=== PATIENT | male | born 1960 | race Caucasian/White ===

== ENCOUNTER 2023-04-19 15:34 | Emergency (ER) | payer OTHER, SELFPAY ==
--- NOTE | 2023-04-19 15:53 | ED.URI ---
HPI - URI/Sore Throat General Chief Complaint: Upper Respiratory Infection Stated Complaint: sinus issue Time Seen by Provider: 04/19/23 16:08 Source: patient Mode of arrival: ambulatory Limitations: no limitations History of Present Illness HPI Narrative: 62-year-old male presents complaint of sinus congestion, postnasal drainage for the past 7 days. Reports worsening congestion, left-sided sinus tenderness and pressure for the past 3 days. Afebrile. Taking an pnyh-xqr-kdrqzty sinus medication with no relief of symptoms. Afebrile. Denies sore throat. No cough. All systems reviewed and negative except as noted above. Related Data Home Medications Medication Instructions Recorded Confirmed amlodipine 10 mg tablet 10 mg PO DAILY 04/19/23 04/19/23 aspirin 81 mg chewable tablet 81 mg PO DAILY 04/19/23 04/19/23 metformin 500 mg tablet 1,000 mg PO BID 04/19/23 04/19/23 Allergies Allergy/AdvReac Type Severity Reaction Status Date / Time mold Allergy Intermediate SINUS Verified 04/19/23 15:57 PRESSURE, HEADACHES codeine Allergy Unknown Unknown Verified 04/19/23 15:57 Cat Dander Allergy Mild SNEEZE Uncoded 04/19/23 15:57 [place] Allergy Mild SNEEZE Uncoded 04/19/23 15:57 Review of Systems Review of Systems: CONSTITUTIONAL: Denies fever, chills, or sweats. EYES: Denies visual changes, redness, or discharge. ENT: Reports rhinorrhea, congestion, sinus pressure. Denies sore throat, or otalgia. CARDIOVASCULAR: Denies chest pain, palpitations, or edema. RESPIRATORY: Denies cough or dyspnea. GASTROINTESTINAL: Denies abdominal pain, nausea, vomiting, or diarrhea. GENITOURINARY: Denies dysuria or hematuria. SKIN: Denies rash or itching. MUSCULOSKELETAL: Denies back pain, joint pain, or myalgia. NEUROLOGIC: reports sinus headache. Denies numbness, or weakness. PSYCHIATRIC: Denies anxiety or depression. All other systems reviewed are negative, except as documented in HPI. [facility] Family History Family History (Updated 12/11/13 @ 07:13 by DOCTOR UNKNOWN) Mother Hypertension Cerebrovascular accident Patient's mother is Social History Social History Smoking status: Never smoker Second hand tobacco smoke exposure: No Alcohol intake: never Comments At time of signature, agree with nursing past medical, surgical, social and family history. There is no relevant family history pertinent to the presenting complaint. Exam Narrative: GENERAL: This is a well-nourished, well-developed patient, in no apparent distress. HEAD: normocephalic, atraumatic. EYES: PERRL. Sclera clear/white. Vision is grossly intact. EARS: External ears normal, auditory canals clear and without drainage, TMs normal without perforation. Hearing grossly intact. NOSE: External nose normal with mild congestion, erythema to bilateral nares without significant swelling. Left maxillary sinus tenderness on palpation. THROAT: Mucous membranes moist, posterior pharynx clear. NECK: Neck supple, non-tender without lymphadenopathy, masses or thyromegaly. CARDIOVASCULAR: Regular rate and rhythm without murmurs, gallops, or rubs. RESPIRATORY: Clear to auscultation. Breath sounds equal bilaterally. No wheezes, rales, or rhonchi. SKIN: warm, Dry, intact with no suspicious lesions or rash, good texture and turgor. NEURO: awake, alert, and oriented to person, place and time. There were no obvious focal neurologic abnormalities. EXTREMITIES: No joint tenderness, effusion, or edema noted. Course Course Level of Care: Express Care Visit Vital Signs Vital signs: Vital Signs Temperature 37.4 C 04/19/23 15:58 Pulse Rate 126 H 04/19/23 15:58 Respiratory Rate 16 04/19/23 15:58 Blood Pressure 155/89 H 04/19/23 15:58 Pulse Oximetry 97 04/19/23 15:58 Oxygen Delivery Room Air 04/19/23 15:58 Temperature 37.4 C 04/19/23 15:58 Pulse Rate 126 H 04/19/23 15:58 Respiratory Rate 16
[2023-04-19 15:58] VITALS: BP 155/89; PULSE 126; RESP 16; TEMP 37.4; O2SAT 97
== END 2023-04-19 16:44 | disposition home or self-care (01) ==
PROVIDERS: Emergency Provider Nurse Practitioner Family; PCP Family Medicine
DX: J01.90 Acute sinusitis, unspecified (principal); I10 Essential (primary) hypertension; E11.9 Type 2 diabetes mellitus without complications; Z85.818 Personal history of malignant neoplasm of other sites of lip, oral cavity, and pharynx; Z92.21 Personal history of antineoplastic chemotherapy; Z92.3 Personal history of irradiation
CPT/HCPCS: 99213; G0463

== ENCOUNTER 2024-04-21 10:52 | Emergency (ER) | payer OTHER, SELFPAY ==
[2024-04-21] VITALS (8 sets, daily range): BP systolic 130–195; BP diastolic 75–101; PULSE 109–126; RESP 16–20; TEMP 36.6; O2SAT 95–99
--- NOTE | ~2024-04-21 | CT_ITS ---
Non-contrast Head CT History: CVA Technique: Axial non-contrast imaging of the brain was performed. Dose reduction technique was used on this scan by utilizing automated exposure control and iterative reconstruction technique. The dose -length product (DLP) was 681.00 mGy-cm. Findings: There is no evidence of intracranial hemorrhage, mass lesion, or acute infarct. Brain par enchyma appears normal. The ventricles and subarachnoid spaces are normal in size. The calvarium ap pears normal. The visualized paranasal sinuses and mastoid air cells are clear. Impression: No significant abnormality seen. Case discussed with Dr. Dumont at 11:10 AM on 04/21/2024. Reviewed, dictated and finalized at [facility]. RMATION ASSISTANT Impression: No significant abnormality seen. Case discussed with Dr. Dumont at 11:10 AM on 04/21/2024.
--- NOTE | ~2024-04-21 | CT_ITS ---
EXAMINATION: CTA brain carotid DATE: 04/21/2024 11:12 INDICATION: Right facial weakness. Slurred speech. TECHNIQUE: Computed tomographic angiography (CTA) of the head was performed with 100 mL Omnipaque-350 intravenous contrast. CTA of the neck was performed with intravenous contrast. Automated exposure co ntrol and iterative reconstruction technique were employed. The dose-length product was 975.46 mGy-cm . Maximum intensity projection and volume rendered 3D-reconstructions were created by the [facility] on a separate workstation. COMPARISON: Head CT 04/21/2024 FINDINGS: HEAD CTA: There is hypodensity in the posterior aspects of the occipital lobes at least predominantly involving white matter. There is no intracranial hemorrhage or abnormal mass lesion. The ventricles are normal in size. There is mild mucosal thickening in the paranasal sinuses. The orbits are normal. The mastoid air cells are normal. Left vertebral artery is dominant. There is moderate stenosis of d istal left vertebral artery. There is no significant stenosis of basilar artery or the posterior cere bral arteries. There is moderate stenosis of the intracranial internal carotid arteries. There is no significant stenosis of the anterior or middle cerebral arteries. Anterior communicating artery is no rmal. Posterior commuting arteries are not identified. There is no aneurysm. NECK CTA: There are no pathologically enlarged lymph nodes. There are surgical clips in the neck. The re is severe stenosis of proximal left vertebral artery. There is severe stenosis of proximal left ex ternal carotid artery. There is plaque in the proximal internal carotid arteries. There is 20% stenos is of the proximal right internal carotid artery relative to normal distal artery lumen diameter (JON CET criteria). There is 56% stenosis of the proximal left internal carotid artery relative to normal distal artery lumen diameter. IMPRESSION: 1. Low attenuation in the occipital lobes posteriorly predominantly involving white matter, which may be posterior reversible encephalopathy syndrome (PRES) or acute/subacute infarcts. 2. Severe stenosis of proximal left vertebral artery. Moderate stenosis of distal left vertebral chase ry. 3. Moderate stenosis of the intracranial internal carotid arteries. 4. 20% stenosis of the proximal right internal carotid artery relative to normal distal artery lumen diameter (NASCET criteria). 5. 56% stenosis of the proximal left internal carotid artery relative to normal distal artery lumen d iameter. Reviewed, dictated and finalized at [facility] IMPRESSION: 1. Low attenuation in the occipital lobes posteriorly predominantly involving w leah matter, which may be posterior reversible encephalopathy syndrome (PRES) o r acute/subacute infarcts. 2. Severe stenosis of proximal left vertebral artery. Moderate stenosis of dist al left vertebral artery. 3. Moderate stenosis of the intracranial internal carotid arteries. 4. 20% stenosis of the proximal right internal carotid artery relative to wilmer l distal artery lumen diameter (NASCET criteria). 5. 56% stenosis of the proximal left internal carotid artery relative to normal distal artery lumen diameter.
--- NOTE | ~2024-04-21 | CT_ITS ---
CTA chest abdomen pelvis Ordering provider: Beryl Dumont MD History: . hypertensive, neuro def; consider dissection . Comparison: None. Technique: CT angiogram chest, abdomen and pelvis was performed following timed intravenous injection of contrast. Thin slice axial images and reformatted coronal images were obtained. Three dimensional reformatted images of the chest were also obtained using a [employer] workstation. Radiation reduction t echnique utilized. The dose-length product was 762.25 mGy-cm. 100 mL Omnipaque 350 was given IV. FINDINGS: CHEST: --THORACIC AORTA: Mild atheromatous disease. No aneurysm, dissection or mediastinal hematoma. --GREAT VESSELS: Normal as visualized. --PULMONARY ARTERIES: No pulmonary embolus. --VISUALIZED THORACIC INLET: Normal. --MEDIASTINUM: Coronary arteries: Mild atheromatous disease. Heart/other: The heart is not enlarged. Trace of pericardial effusion seen anteriorly. Lymph nodes: No mediastinal or hilar adenopathy. --LUNGS: No pulmonary nodules or masses. No infiltrates or effusions. No pneumothorax. Dependent atelectatic c hanges. A --MUSCULOSKELETAL: Superficial soft tissues: The superficial soft tissues are normal. Bones: Age appropriate degenerative changes of the spine. ABDOMEN/PELVIS: --MUSCULOSKELETAL: Bones: Age appropriate degenerative changes of the spine. Superficial soft tissues: The superficial soft tissues are normal. --UPPER ABDOMINAL ORGANS: Liver: Fat infiltration. Gallbladder: Hyperdense material which may indicate sludge. Ultrasound evaluation advised. Contrast c annot be excluded. Spleen: Normal. Stomach/duodenum: Normal. Pancreas: Normal. Adrenals: Normal. Kidneys: Hypodensity in the right kidney midpole with peripheral enhancement measuring 2 cm. Mass can not be excluded. Follow-up advised. Tiny cysts in the right kidney lower pole. Cyst is seen in the le ft kidney upper pole measuring 1.4 cm. Tiny cyst in the left kidney mid and lower pole. --PELVIC ORGANS: Contrast is seen in the urinary bladder. The bladder is normal. No bladder stones. --BOWEL AND MESENTERY: Colon: No evidence of diverticulitis. Fecal material is loaded in the colon. Normal appendix. Small Bowel: Normal. No obstruction. Peritoneum/mesentery: No free air or free fluid. No mesenteric lymphadenopathy. --RETROPERITONEUM: No retroperitoneal lymphadenopathy. --ARTERIES: ABDOMINAL AORTA: Mild atheromatous disease. No aneurysm or dissection. RENAL ARTERIES: Atherosclerotic changes in the left artery CELIAC AXIS: Atherosclerotic changes of the origin. Slight narrowing. SMA: Atherosclerotic changes. Mild narrowing. SANDIE: Normal. ILIAC AND VISUALIZED FEMORAL ARTERIES: Atherosclerotic changes. MESENTERIC ARTERIES: Normal. IMPRESSION: CHEST: 1. No aortic aneurysm or dissection seen. 2. No acute cardiopulmonary pathology. ABDOMEN/PELVIS: 1. Hyperdense material in the gallbladder which may indicate sludge. Ultrasound evaluation advised. 2. Fat infiltration of the liver. 3. Hypodensity in the right kidney midpole which may be a mass. Follow-up advised. 4. Constipation. 5. Atherosclerotic changes of the celiac, superior mesenteric and renal arteries. Reviewed, dictated and finalized at location [facility] IMPRESSION: CHEST: 1. No aortic aneurysm or dissection seen. 2. No acute cardiopulmonary pathology. ABDOMEN/PELVIS: 1. Hyperdense material in the gallbladder which may indicate sludge. Ultrasoun d evaluation advised. 2. Fat infiltration of the liver. 3. Hypodensity in the right kidney midpole which may be a mass. Follow-up advi sed. 4. Constipation. 5. Atherosclerotic changes of the celiac, superior mesenteric and renal arteri es.
--- NOTE | ~2024-04-21 | XR_ITS ---
EXAMINATION: XR chest 1V portable DATE: 04/21/2024 11:51 INDICATION: Right facial weakness. Slurred speech. TECHNIQUE: A single frontal view of the chest was obtained. COMPARISON: Chest 2 views 05/21/2005 FINDINGS: There is no pneumonia, pleural effusion, or pneumothorax. The heart size is normal. There a re surgical clips in the neck. IMPRESSION: 1. No acute cardiopulmonary disease. Reviewed, dictated and finalized at location [facility]. [facility]
--- NOTE | 2024-04-21 10:53 | ECG_ITS ---
Test Date: 2024-04-21 11:20:22 Measurements Intervals [place] Rate: 108 P: 52 ND: 150 QRS: -4 QRSD: 86 T: 10 QT: 324 QTc: 435 Interpretive Statements SINUS TACHYCARDIA ABNORMAL RHYTHM ECG No previous ECG available for comparison Electronically Signed On 04-23-2024 17:00:18 [employer]AV[employer]ESS OPERATOR by Arnulfo Stevens M.D.
[2024-04-21 11:06] LABS: Estimated Glomerular Filt Rate 51
--- NOTE | 2024-04-21 11:06 | ED_ITS ---
HPI - Neuro Symptoms/Deficit General Chief Complaint: Suspected CVA Stated Complaint: cva Time Seen by Provider: 04/21/24 11:01 Source: patient, family and EMS Mode of arrival: EMS Limitations: no limitations History of Present Illness HPI Narrative: Patient presents as a code stroke activation with concern that acutely at 10:00 a.m. he was having blurred vision in his right eye. There was also concern for right facial droop and people that were around him were concern for slurred speech. 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 Patient reports being nauseated. For EMS his blood pressure was 200/110 with a mean arterial pressure greater than 125. They did not appreciate any slurred speech. Patient reports double vision. Related Data Home Medications ?Medication ?Instructions ?Recorded ?Confirmed ?Last Taken ?Type amlodipine 10 mg tablet 10 mg PO DAILY 04/19/23 04/19/23 Unknown History aspirin 81 mg chewable tablet 81 mg PO DAILY 04/19/23 04/19/23 Unknown History metformin 500 mg tablet 1,000 mg PO BID 04/19/23 04/19/23 Unknown History Allergies Allergy/AdvReac Type Severity Reaction Status Date / Time mold Allergy Intermediate SINUS Verified 04/21/24 11:36 PRESSURE, HEADACHES codeine Allergy Unknown Unknown Verified 04/21/24 11:36 Cat Dander Allergy Mild SNEEZE Uncoded 04/21/24 11:36 [place] Allergy Mild SNEEZE Uncoded 04/21/24 11:36 PMFSH Past Medical History 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 HEAD: Normocephalic, atraumatic. Minor loss of the right nasal labial fold EYES: Non injected, non icteric. Horizontal extraocular movements intact. No deficits on visual vargas. However, patient is having difficulty with color perception /color saturation. States the blue scrubs I am wearing are yellow and can tell that the black stethoscope I have is dark but guesses brown. ENT: Nares clear, no rhinorrhea or epistaxis. NECK: Supple. CHEST: Speaking in full sentences. No respiratory distress. HEART: Regular rate and rhythm. . ABDOMEN: Soft, nondistended. EXTREMITIES: Normal range of motion. No lower extremity edema. SKIN: Warm, dry, no rash. NEURO: No focal deficits. Alert and oriented x3. Right xhrnxm-evca-lhksok ataxia; no ataxia on left. No motor drift x4 extremities. Sensation intact throughout. Patient speaks clearly without aphasia or dysarthria. Answers questions, follows commands. PSYCH: Normal mood and affect. Course Vital Signs Vital signs: Vital Signs Temperature 98 F 04/21/24 10:50 Pulse Rate 109 H 04/21/24 10:50 Respiratory Rate 18 04/21/24 10:50 Blood Pressure 195/101 H 04/21/24 10:50 Pulse Oximetry 95 04/21/24 10:50 Oxygen Delivery Room Air 04/21/24 10:50 Temperature 98 F 04/21/24 10:50 Pulse Rate 122 H 04/21/24 15:10 Respiratory Rate 17 04/21/24 15:10 Blood Pressure 137/91 H 04/21/24 15:10 Pulse Oximetry 97 04/21/24 15:10 Oxygen Delivery Room Air 04/21/24 11:30 MDM - Neuro Symptoms/Deficit MDM Narrative Medical decision making narrative: This is a 63 year old male who presents to the emergency department with concern for possible stroke. Last known well is 10:00. The patient is protecting their airway which is patent. An IV is established by nursing staff blood work sent to the lab for evaluation. An EKG will be performed. Accu-Chek was approximately 200. NIHSS was evaluated per below. The patient was transported immediately to CT scan per stroke protocol for evaluation of acute intracranial bleed. In the emergency department he is afebrile with vital signs notable for her tachycardia as well as hypertension, 195/101. NIHSS Level Of consciousness: 0 Month and age: 0 Follows commands: 0 Gaze palsy: 0 Visual vargas: 0 Facial palsy: 1 (right) Left arm motor drift: 0 Right arm motor drift:0 Left leg motor drift:0 Right leg motor drift:0 Limb ataxia: 1 (right) Sensation: 0 Aphasia: 0 Dysarthria: 0 Extinction: 0 Total: 2. I do have concerns for posterior stroke given patient's diplopia, dizziness, and ataxia. CT non contrast per stroke protocol is negative per discussion with radiologist 11:09. CTA as below. Patient has comorbidities that complexity management. Namely, history of malignancy. Patient reassessed at approximately 12:15 p.m.. He remains nauseous. Will give a dose of Compazine. His visual changes persist and on bedside testing it does appear to affect both eyes with color blindness and color desaturation. This does point more towards posterior reversible encephalopathy syndrome over stroke but consult remains out to neurologist. Dr Montes recommends consulting stroke center. Shared decision making with patent regarding the concerns. He has previously undergone surgery for HPV related head/neck cancer at [facility] so [facility] is their preferred hospital institution. Discussed with stroke fellow Dr. Bui at [facility] who stated as long as he had no TNK contraindications that would still be the recommendation. However, even post lytics, they are currently on time critical and thus cannot accept the patient as they have no neuro ICU beds and he is otherwise not a thrombectomy candidate. tPA/TNK exclusion criteria are reviewed of which patient has none (BP has improved without the labetalol that was ordered). I did discuss with Dr Bella given CT brain imaging shows extensive regions of clear hypoattenuation is considered a contraindication but Dr Bella did say that this would not be considered extensive. Will give TNK. Discussed with Dr Avery cross tie tram loader. Discussed with [facility] stroke team Dr. Slick Ng who does state that this would be a time critical diagnosis for in consideration of ED to ED transfer. Spoke with ED attending Dr. Mendoza who accepts patient; requests disc. Dr Skyler Stone hospitalist at [facility] accepts patient to a neurology bed however no current beds available. Recommends Repeat CT 24 hours unless patient has signs/symptoms/worsening headache concerning for acute intracranial bleed. He is also concerned about his elevated blood sugar and recommends getting a hemoglobin A1c as well as giving him some insulin right now. Will give 1 L IV fluid as well as this. Patient is still pending a bed assignment however. Goal BP post tnk <180/105 or 110mmHg. Labs : Hyperglycemia without anion gap acidosis. Pseudo hyponatremia as the sodium corrects to 139-140mEq/L in the setting of hyperglycemia. Mild leukocytosis. NIHSS still 2 for the same deficits as above. He continues to have issues with color perception and saturation. He states that the green top of a container of wipes appears dark but can not differentiate. Similarly, some yellow pediatric scrubs I grab he states are light but can not tell beyond that. I did discuss our options at present which is an emergency department to emergency department at [facility] versus awaiting bed assignment to [facility] and [facility]. Family concurs with proceding with ED transfer. Ambulance transportation is delayed given the weather/road conditions but helicopters are still active to fly and, given this constitutes a time critical diagnosis, this is discussed with patient and and he is in agreement. This is arranged. HA1c 7.5%. Can not read any letters on vision board at bedside during visual acuity testing. Differential Diagnosis Differential diagnosis: Likely cerebrovascular accident, transient cerebral ischemia and other (Hypertensive emergency, ocular migraine, posterior reversible encephalopathy syndrome (PRES); aortic dissection; ) Lab Data Attestation: I reviewed the patient's lab results. 04/21/24 11:03 04/21/24 11:04 Labs: Lab Results 04/21/24 04/21/24 04/21/24 Range/Units 11:03 11:04 14:27 WBC 11.9 H (4.5-10.0) K/mm3 RBC 4.86 (4.6-6.20) M/mm3 Hgb 15.1 (14.0-18.0) g/dL Hct 43.6 (42.0-52.0) % MCV 89.7 (80-100) fl MCH 31.1 (26-34) pg MCHC 34.6 (32-36) g/dl RDW 12.2 (11.5-14.5) % Plt Count 239 (150-375) k/mm3 MPV 10.5 H (7.4-10.4) fl Immature Gran % (Auto) 1.2 H (0-0.5) % Neut % (Auto) 76.5 H (45.5-73.1) % Lymph % (Auto) 13.3 L (18.3-44.2) % [place] % (Auto) 7.4 (2.6-8.5) % Eos % (Auto) 0.3 (0-4.4) % Baso % (Auto) 1.3 H (0.2-1.2) % Lymph # (Auto) 1.58 (0.9-3.2) K/mm3 [place] # (Auto) 0.9 H (0.1-0.6) K/mm3 Eos # (Auto) 0.0 (0-0.3) K/mm3 Baso # (Auto) 0.2 H (0.0-0.1) K/mm3 Abs Immat Gran (auto) 0.14 H (0.00-0.031) K/mm3 Absolute Neuts (auto) 9.1 H (1.3-6.7) K/mm3 Absolute Nucleated RBC 0.000 (0.0-0.012) K/mm3 Nucleated RBC % 0.0 (0.0-0.2) % PT 12.8 (11.1-14.7) Seconds INR 0.9 APTT 28.1 (22.3-36.8) Seconds Sodium 136 L (137-145) mmol/L Potassium 4.5 (3.4-5.0) mmol/L Chloride 104 (98-107) mmol/L Carbon Dioxide 23 (22-30) mmol/L Anion Gap 9 (4-12) mmol/L BUN 23 H (9-20) mg/dL Creatinine 1.28 1.40 (0.7-1.3) mg/dL Estim Creat Clear Calc Not Reportable Not Reportable Estimated GFR 57 L 51 L (59 - ) Glucose 290 H (65-110) mg/dL POC Capillary Glucose (65-105) mg/dl Hemoglobin A1c 7.5 H (<5.7) % Calcium 9.5 (8.4-10.2) mg/dL Total Bilirubin 0.9 (0.2-1.3) mg/dL AST 21 (17-59) U/L ALT 18 (6-50) U/L Alkaline Phosphatase 74 (38-126) U/L Troponin I < 0.012 (0.000-0.034) ng/mL Total Protein 7.0 (6.3-8.2) g/dL Albumin 4.5 (3.5-5.1) g/dL Urine Color Yellow (Yellow) Urine Appearance Clear (Clear) Urine pH 6.5 (5.0-9.0) Ur Specific [place] 1.042 H (1.001-1.035) Urine Protein 1+ H (Negative) mg/dL Urine Glucose (UA) 3+ H (Negative) mg/dL Urine Ketones 1+ H (Negative) mg/dL Ur Blood (Man) Negative (Negative) Urine Nitrate Negative (Negative) Urine Bilirubin Negative (Negative) Urine Urobilinogen 0.2 (<2.0) mg/dL Leukocyte Esterase Rfl Negative (Negative) ANTONIO/UL Urine RBC 0-2 (0-2) /hpf Urine WBC 0-5 (0-3) /hpf Ur Squamous Epith Cells None seen (Few) /hpf Urine Bacteria None seen /hpf Urine Casts 0-2 Urine Opiates Screen Negative (Negative) Urine Methadone Screen Negative (Negative) Ur Barbiturates Screen Negative (Negative) Ur Phencyclidine Scrn Negative (Negative) Ur Amphetamine Screen Negative (Negative) U Benzodiazepines Scrn Negative (Negative) Urine Cocaine Screen Negative (Negative) U Cannabinoids Screen Negative (Negative) Ethyl Alcohol < 10 (<10) mg/dL 04/21/24 Range/Units 14:36 WBC (4.5-10.0) K/mm3 RBC (4.6-6.20) M/mm3 Hgb (14.0-18.0) g/dL Hct (42.0-52.0) % MCV (80-100) fl MCH (26-34) pg MCHC (32-36) g/dl RDW (11.5-14.5) % Plt Count (150-375) k/mm3 MPV (7.4-10.4) fl Immature Gran % (Auto) (0-0.5) % Neut % (Auto) (45.5-73.1) % Lymph % (Auto) (18.3-44.2) % [place] % (Auto) (2.6-8.5) % Eos % (Auto) (0-4.4) % Baso % (Auto) (0.2-1.2) % Lymph # (Auto) (0.9-3.2) K/mm3 [place] # (Auto) (0.1-0.6) K/mm3 Eos # (Auto) (0-0.3) K/mm3 Baso # (Auto) (0.0-0.1) K/mm3 Abs Immat Gran (auto) (0.00-0.031) K/mm3 Absolute Neuts (auto) (1.3-6.7) K/mm3 Absolute Nucleated RBC (0.0-0.012) K/mm3 Nucleated RBC % (0.0-0.2) % PT (11.1-14.7) Seconds INR APTT (22.3-36.8) Seconds Sodium (137-145) mmol/L Potassium (3.4-5.0) mmol/L Chloride (98-107) mmol/L Carbon Dioxide (22-30) mmol/L Anion Gap (4-12) mmol/L BUN (9-20) mg/dL Creatinine (0.7-1.3) mg/dL Estim Creat Clear Calc Estimated GFR (59 - ) Glucose (65-110) mg/dL POC Capillary Glucose 257 H (65-105) mg/dl Hemoglobin A1c (<5.7) % Calcium (8.4-10.2) mg/dL Total Bilirubin (0.2-1.3) mg/dL AST (17-59) U/L ALT (6-50) U/L Alkaline Phosphatase (38-126) U/L Troponin I (0.000-0.034) ng/mL Total Protein (6.3-8.2) g/dL Albumin (3.5-5.1) g/dL Urine Color (Yellow) Urine Appearance (Clear) Urine pH (5.0-9.0) Ur Specific [place] (1.001-1.035) Urine Protein (Negative) mg/dL Urine Glucose (UA) (Negative) mg/dL Urine Ketones (Negative) mg/dL Ur Blood (Man) (Negative) Urine Nitrate (Negative) Urine Bilirubin (Negative) Urine Urobilinogen (<2.0) mg/dL Leukocyte Esterase Rfl (Negative) ANTONIO/UL Urine RBC (0-2) /hpf Urine WBC (0-3) /hpf Ur Squamous Epith Cells (Few) /hpf Urine Bacteria /hpf Urine Casts Urine Opiates Screen (Negative) Urine Methadone Screen (Negative) Ur Barbiturates Screen (Negative) Ur Phencyclidine Scrn (Negative) Ur Amphetamine Screen (Negative) U Benzodiazepines Scrn (Negative) Urine Cocaine Screen (Negative) U Cannabinoids Screen (Negative) Ethyl Alcohol (<10) mg/dL Imaging Data Radiologist's impression: Impressions Head CT 04/21/24 11:07 Impression: No significant abnormality seen. Case discussed with Dr. Dumont at 11:10 AM on 04/21/2024. Head/Neck CTA 04/21/24 11:13 IMPRESSION: 1. Low attenuation in the occipital lobes posteriorly predominantly involving white matter, which may be posterior reversible encephalopathy syndrome (PRES) or acute/subacute infarcts. 2. Severe stenosis of proximal left vertebral artery. Moderate stenosis of distal left vertebral artery. 3. Moderate stenosis of the intracranial internal carotid arteries. 4. 20% stenosis of the proximal right internal carotid artery relative to normal distal artery lumen diameter (NASCET criteria). 5. 56% stenosis of the proximal left internal carotid artery relative to normal distal artery lumen diameter. Chest X-Ray 04/21/24 11:52 IMPRESSION: 1. No acute cardiopulmonary disease. Chest/Abdomen/Pelvis CTA 04/21/24 13:51 IMPRESSION: CHEST: 1. No aortic aneurysm or dissection seen. 2. No acute cardiopulmonary pathology. ABDOMEN/PELVIS: 1. Hyperdense material in the gallbladder which may indicate sludge. Ultrasound evaluation advised. 2. Fat infiltration of the liver. 3. Hypodensity in the right kidney midpole which may be a mass. Follow-up advised. 4. Constipation. 5. Atherosclerotic changes of the celiac, superior mesenteric and renal arteries. ECG Data EKG #1: Attestation: I personally reviewed and interpreted this ECG as follows: ECG completion date: 04/21/24 ECG completion time: 11:20 Interpretation: Sinus tachycardia at a rate of 108 beats per minute. [place] interval 150. QRS 86. QT/QTC 324/387. Good R-wave progression across the precordial leads. T-wave inversion in 3 but upright and normal contiguous inferior leads 2 and AVF. No other T-wave inversions. Discharge Plan Discharge Clinical Impression: Hyperglycemia, Pseudohyponatremia, Leukocytosis, Color vision defect, Alteration in vision, Asymmetry, facial, Ataxia Patient Disposition: Acute Care Hospital Condition: Serious Patient Language: Indonesian Prescriptions: No Action metformin 500 mg tablet 1,000 mg PO BID amlodipine 10 mg tablet 10 mg PO DAILY aspirin [Baby Aspirin] 81 mg Tablet,Chewable 81 mg PO DAILY amoxicillin 875 mg tablet 875 mg PO Q12H 7 Days Qty: 14 0RF Follow-up/Referrals: Laura,León Lott MD [Primary Care Provider] -
[2024-04-21 11:13] LABS: Basophils Absolute Auto 0.2 K/mm3 (0.0-0.1); Basophils Percent Auto 1.3 % (0.2-1.2); Eosinophils Percent Auto 0.3 % (0-4.4); Hematocrit 43.6 % (42.0-52.0); Hemoglobin 15.1 g/dL (14.0-18.0); Immature Granulocyte Absolute 0.14 K/mm3 (0.00-0.031); Immature Granulocyte Percent A 1.2 % (0-0.5); Lymphocytes Absolute Auto 1.58 K/mm3 (0.9-3.2); Lymphocytes Percent Auto 13.3 % (18.3-44.2); Mean Corpuscular HGB Conc 34.6 g/dl (32-36); Mean Corpuscular Hemoglobin 31.1 pg (26-34); Mean Corpuscular Volume 89.7 fl (80-100); Mean Platelet Volume 10.5 fl (7.4-10.4); Monocytes Absolute Auto 0.9 K/mm3 (0.1-0.6); Monocytes Percent Auto 7.4 % (2.6-8.5); Neutrophils Absolute Auto 9.1 K/mm3 (1.3-6.7); Neutrophils Percent Auto 76.5 % (45.5-73.1); Platelet Count Result 239 k/mm3 (150-375); Red Blood Count 4.86 M/mm3 (4.6-6.20); Red Cell Distribution Width 12.2 % (11.5-14.5); White Blood Count 11.9 K/mm3 (4.5-10.0)
[2024-04-21 11:18] LABS: Alanine Aminotransferase 18 U/L (6-50); Albumin Level 4.5 g/dL (3.5-5.1); Alkaline Phosphatase 74 U/L (38-126); Anion Gap 9 mmol/L (4-12); Aspartate Amino Transferase 21 U/L (17-59); Bilirubin,Total 0.9 mg/dL (0.2-1.3); Blood Urea Nitrogen 23 mg/dL (9-20); Calcium 9.5 mg/dL (8.4-10.2); Carbon Dioxide 23 mmol/L (22-30); Chloride 104 mmol/L (98-107); Estimated Glomerular Filt Rate 57; Glucose 290 mg/dL (65-110); Potassium 4.5 mmol/L (3.4-5.0); Sodium 136 mmol/L (137-145)
[2024-04-21 11:20] LABS: INR 0.9; Prothrombin Time 12.8 Seconds (11.1-14.7)
[2024-04-21 11:21] LABS: Partial Thromboplastin Time 28.1 Seconds (22.3-36.8)
[2024-04-21 11:29] LABS: Troponin I < 0.012 ng/mL (0.000-0.034)
[2024-04-21] MEDS: PROCHLORPERAZINE EDISYLATE 10 MG/2 ML VIAL IV PUSH (13:01)
[2024-04-21] MEDS: TENECTEPLASE 50 MG/10 ML VIAL 17 MG IV PUSH (13:18)
[2024-04-21 14:05] LABS: Ethanol < 10 mg/dL (<10)
[2024-04-21 14:32] LABS: Hemoglobin A1C 7.5 % (<5.7)
[2024-04-21] MEDS: SODIUM CHLORIDE 0.9% IV 1,000 ML 999 ML IV CONT (14:36)
[2024-04-21] MEDS: INSULIN HUMAN REGULAR (*BKC) 100 UNITS/ML SUB-Q (14:36)
[2024-04-21 14:40] LABS: Glucose Point of Care 257 mg/dl (65-105)
[2024-04-21 14:40] LABS: Add Urine Microscopic? YES; Appearance Urine Clear (Clear); Bacteria Urine None Seen /hpf; Bilirubin Urine Negative (Negative); Blood Urine Negative (Negative); Color Urine Yellow (Yellow); Glucose Urine UA 3+ mg/dL (Negative); Ketones Urine 1+ mg/dL (Negative); Leukocyte Esterase Ur Negative LEU/UL (Negative); Nitrate Urine Negative (Negative); Non Pathogenic Casts 0-2; Protein Urine 1+ mg/dL (Negative); RBC Urine 0-2 /hpf (0-2); Specific Grav Ur 1.042 (1.001-1.035); Squamous Epithelial Cell Urine None Seen /hpf (Few); Urobilinogen Urine 0.2 mg/dL (<2.0); WBC Urine 0-5 /hpf (0-3); pH Urine 6.5 (5.0-9.0)
[2024-04-21 15:03] LABS: Amphetamine Screen Urine Negative (Negative); Barbiturate Screen Urine Negative (Negative); Benzodiazepines Screen Urine Negative (Negative); Cannabinoid Screen Urine Negative (Negative); Cocaine Screen Urine Negative (Negative); Methadone Screen Urine Negative (Negative); Opiate Screen Urine Negative (Negative); Phencyclidine Screen Urine Negative (Negative)
[2024-04-25 09:23] LABS: Glucose Point of Care 290 mg/dl (65-105)
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
--- OUTSIDE RECORDS SUMMARY | 2024-04-27 18:23 | XMS_ITS | Encounter Summary ---
Author Organization [facility] Address [address] [place] [address]. 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 Not on file Not on file documented as of this encounter Plan of Treatment Upcoming Encounters Date Type Department Care Team (Late Contact Info) Description 06/09/2024 4:20 PM AUTO TRANSMISSION MECHANIC Office Visit [facility] Family & Internal Medicine [facility] [id number] [place] [phone] León Sanchez [place] [id number] [place] [address] documented as of this encounter Visit Diagnoses Not on filedocumented in this encounter Additional Health Concerns Assessment Noted Time PHQ-9 Depression Total Score: 0 12/29/19 21 3:46 PM CDT documented as of this encounter Care Teams Ukrainian Folk Arts Instructor Relationship Specialty Start [place] [address] [place] [address] PCP - General FAMILY PRACTICE 02/27/18 documented as of this encounter
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
--- OUTSIDE RECORDS SUMMARY | 2024-04-27 18:23 | XMS_ITS | Encounter Summary ---
Author Organization [facility] Address [address] [place] [address]. 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 Not on file Not on file documented as of this encounter Plan of Treatment Upcoming Encounters Date Type Department Care Team (Late Contact Info) Description 06/09/2024 4:20 PM BELLOWS FILLER Office Visit [facility] Family & Internal Medicine [facility] [id number] [place] [phone] León Sanchez [place] [id number] [place] [address] documented as of this encounter Visit Diagnoses Not on filedocumented in this encounter Additional Health Concerns Assessment Noted Time PHQ-9 Depression Total Score: 0 12/29/19 21 3:46 PM CDT documented as of this encounter Care Teams Publishing Specialist Relationship Specialty Start Date End Date Ló[place] [address] [place] [address] PCP - General FAMILY PRACTICE 02/27/18 documented as of this encounter
--- OUTSIDE RECORDS SUMMARY | 2024-04-27 18:23 | XMS_ITS | Encounter Summary ---
Author Organization [facility] Address [address] [place] [address]. 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 Not on file Not on file documented as of this encounter Plan of Treatment Upcoming Encounters Date Type Department Care Team (Late Contact Info) Description 06/09/2024 4:20 PM FORKLIFT MATERIAL HANDLER Office Visit [facility] Family & Internal Medicine [facility] [address] [place] [phone] León Sanchez [place] [id number] [place] [address] documented as of this encounter Visit Diagnoses Not on filedocumented in this encounter Additional Health Concerns Assessment Noted Time PHQ-9 Depression Total Score: 0 12/29/19 21 3:46 PM CDT documented as of this encounter Care Teams Slice Cutting Machine Operator Helper Relationship Specialty Start [place] [address] [place] [address] PCP - General FAMILY PRACTICE 02/27/18 documented as of this encounter
--- OUTSIDE RECORDS SUMMARY | 2024-04-27 18:23 | XMS_ITS | Encounter Summary ---
Author Organization [facility] Address [address] [place] [address]. 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 Not on file Not on file documented as of this encounter Plan of Treatment Upcoming Encounters Date Type Department Care Team (Late Contact Info) Description 06/09/2024 4:20 PM [employer] ASSISTANT MANAGER Office Visit [facility] Family & Internal Medicine [facility] [address] [place] [phone] León Sanchez [place] [id number] [place] [address] documented as of this encounter Visit Diagnoses Not on filedocumented in this encounter Additional Health Concerns Assessment Noted Time PHQ-9 Depression Total Score: 0 12/29/19 21 3:46 PM CDT documented as of this encounter Care Teams Boat Canvas Maker Installer Relationship Specialty Start [place] [address] [place] [address] PCP - General FAMILY PRACTICE 02/27/18 documented as of this encounter
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
--- OUTSIDE RECORDS SUMMARY | 2024-04-27 18:23 | XMS_ITS | Encounter Summary ---
Author Organization [facility] Address [address] [place] [address]. 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 Not on file Not on file documented as of this encounter Plan of Treatment Upcoming Encounters Date Type Department Care Team (Late st Contact Info) Description 06/09/2024 4:20 PM PATTERNMAKER APPRENTICE METAL Office Visit [facility] Medical [facility] Family & Internal Medicine [address] [address] León Sanchez [place] [id number] [place] [address] documented as of this encounter Visit Diagnoses Not on filedocumented in this encounter Additional Health Concerns Assessment Noted Time PHQ-9 Depression Total Score: 0 12/29/19 21 3:46 PM CDT documented as of this encounter Care Teams Body Design Checker Relationship Specialty Start [place] [address] [place] [address] PCP - General FAMILY PRACTICE 02/27/18 documented as of this encounter
--- OUTSIDE RECORDS SUMMARY | 2024-04-27 18:23 | XMS_ITS | Encounter Summary ---
Author Organization [facility] Address [address] [place] [address]. [place] [address] [place] [address] Care Team Providers Care Director Of Dance Name Role Phone León Sanchez MD Primary Care Provider [phone] Reason for Visit * Reason Onset Date Comments Question 11/19/2023 Encounter Details Date Type Department Care Team (Late st Contact Info) Description 11/19/2023 Telephone [facility] Medical Group Family & Internal Medicine [facility] [address] [place] [address] [place] [address] [place] [address] Question Social History Tobacco Use Types Packs/Day Years [...] Sexual Orientation Straight 03/28/2018 4: 44 PM 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 Informed her stress test has been ordered and someone from the hospital will call them to schedule. She v/u. * Sebastien Baig - 11/19/2023 11:15 AM CDT Pt is calling asking about the referral that was supposed to be sent Stress test for his heart. Also never got a call when to do the Xray for his arm. Please advise documented in this encounter Plan of Treatment Upcoming Encounters Date Type Department Care Team (Late st Contact Info) Description 06/09/2024 4:20 PM MULTIFOCAL BUTTON INSPECTOR Office Visit [facility] Medical Group Family & Internal Medicine [facility] [address] [place] [address] [place] [address] [place] [address] documented as of this encounter Visit Diagnoses Diagnosis Palpitations- Primary documented in this encounter Additional Health Concerns Assessment Noted Time PHQ-9 Depression Total Score: 0 12/29/19 21 3:46 PM CDT documented as of this encounter Care Teams Director Of Dance Relationship Specialty Start [place] [address] [place] [address] PCP - General FAMILY PRACTICE 02/27/18 documented as of this encounter
--- OUTSIDE RECORDS SUMMARY | 2024-04-27 18:23 | XMS_ITS | Encounter Summary ---
Author Organization [facility] Address [address] [place] [address]. 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 [address] [place] [phone] León Sanchez [place] [id number] [place], [place] [id number] documented as of this encounter Visit Diagnoses Not on filedocumented in this encounter Additional Health Concerns Assessment Noted Time PHQ-9 Depression Total Score: 0 12/29/19 21 3:46 PM CDT documented as of this encounter Care Teams Spinner Open End Relationship Specialty Start [place] [address] [place] [address] PCP - General FAMILY PRACTICE 02/27/18 documented as of this encounter
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
--- OUTSIDE RECORDS SUMMARY | 2024-04-27 18:23 | XMS_ITS | Encounter Summary ---
Author Organization [facility] Address [address] [place] [address]. 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 Not on file Not on file documented as of this encounter Plan of Treatment Upcoming Encounters Date Type Department Care Team (Late st Contact Info) Description 06/09/2024 4:20 PM MERCHANT POLICE Office Visit [facility] Medical Group Family & Internal Medicine [address] [address] León Sanchez [place] [id number] [place] [address] documented as of this encounter Visit Diagnoses Not on filedocumented in this encounter Additional Health Concerns Assessment Noted Time PHQ-9 Depression Total Score: 0 12/29/19 21 3:46 PM CDT documented as of this encounter Care Teams Automobile Service Station Attendant Relationship Specialty Start [place] [address] [place] [address] PCP - General FAMILY PRACTICE 02/27/18 documented as of this encounter
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
--- OUTSIDE RECORDS SUMMARY | 2024-04-27 18:23 | XMS_ITS | Encounter Summary ---
Author Organization [facility] Address [address] [place] [address]. 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 Not on file Not on file documented as of this encounter Plan of Treatment Upcoming Encounters Date Type Department Care Team (Late Contact Info) Description 06/09/2024 4:20 PM QUALITY COMPLIANCE CONSULTANT Office Visit [facility] Medical Group Family & Internal Medicine [facility] [address] [place] [address] León Sanchez [place] [id number] [place] [address] documented as of this encounter Visit Diagnoses Not on filedocumented in this encounter Additional Health Concerns Assessment Noted Time PHQ-9 Depression Total Score: 0 12/29/19 21 3:46 PM CDT documented as of this encounter Care Teams Cutter Wet Machine Relationship Specialty Start [place] [address] [place] [address] PCP - General FAMILY PRACTICE 02/27/18 documented as of this encounter
--- OUTSIDE RECORDS SUMMARY | 2024-04-27 18:23 | XMS_ITS | Encounter Summary ---
Author Organization [facility] Address [address] [place] 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 Not on file Not on file documented as of this encounter Plan of Treatment Upcoming Encounters Date Type Department Care Team (Late st Contact Info) Description 06/09/2024 4:20 PM CLEANING MATRON Office Visit [facility] Medical Group Family & Internal Medicine [address] [address] León Sanchez [place] [id number] [place] [address] documented as of this encounter Visit Diagnoses Not on filedocumented in this encounter Additional Health Concerns Assessment Noted Time PHQ-9 Depression Total Score: 0 12/29/19 21 3:46 PM CDT documented as of this encounter Care Teams Ice Cream Freezer Relationship Specialty Start [place] [address] [place] [address] PCP - General FAMILY PRACTICE 02/27/18 documented as of this encounter
--- OUTSIDE RECORDS SUMMARY | 2024-04-27 18:23 | XMS_ITS | Encounter Summary ---
Author Organization [facility] Address [address] [place] [address]. 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 Not on file Not on file documented as of this encounter Plan of Treatment Upcoming Encounters Date Type Department Care Team (Late Contact Info) Description 06/09/2024 4:20 PM DIRECTOR INFORMATION SECURITY Office Visit [facility] Medical Group Family & Internal Medicine [facility] [address] [place] [address] León [place] [id number] [place] [address] documented as of this encounter Visit Diagnoses Not on filedocumented in this encounter Additional Health Concerns Assessment Noted Time PHQ-9 Depression Total Score: 0 12/29/19 21 3:46 PM CDT documented as of this encounter Care Teams Plastics Supervisor Relationship Specialty Start [place] [address] [place] [address] PCP - General FAMILY PRACTICE 02/27/18 documented as of this encounter
--- OUTSIDE RECORDS SUMMARY | 2024-04-27 18:23 | XMS_ITS | Encounter Summary ---
Author Organization [facility] Address [address] [place] [address]. 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 Not on file Not on file documented as of this encounter Plan of Treatment Upcoming Encounters Date Type Department Care Team (Late st Contact Info) Description 06/09/2024 4:20 PM DELIVERY SUPERVISOR Office Visit [facility] Medical Group Family & Internal Medicine [address] [address] León Sanchez [place] [id number] [place] [address] documented as of this encounter Visit Diagnoses Not on filedocumented in this encounter Additional Health Concerns Infection Onset Date Last Indicated Resolved Time COVID-19 Rule Out 03/27/2024 03/27/2024 03/27/2024 6:44 PM DELIVERY SUPERVISOR Assessment Noted Time PHQ-9 Depression Total Score: 0 12/29/19 21 3:46 PM CDT documented as of this encounter Care Teams Furnace Checker Relationship Specialty Start Date [place] Date Le[place] [address] [place] [address] PCP - General FAMILY PRACTICE 02/27/18 documented as of this encounter
--- OUTSIDE RECORDS SUMMARY | 2024-04-27 18:23 | XMS_ITS | Encounter Summary ---
Author Organization [facility] Address [address] [place] [address]. [place] [address] [place] [address] Care Team Providers Care Charter Representative Name Role Phone León Sanchez MD Primary Care Provider [phone] Reason for Visit * Reason Onset Date Comments Advice 04/14/2024 2nd opinion, eye provider FYI 04/14/2024 Going to rehab Encounter Details Date Type Department Care Team (Late st Contact Info) Description 04/14/2024 Telephone [facility] Medical Group Family & Internal Medicine [facility] [address] [place] [address] León Sanchez [place] [id number] [place] [address] Advice (2nd opinion, eye provider); FYI (Going to rehab ) Social History Tobacco Use Types Packs/Day [...] Sexual Orientation Straight 03/28/2018 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 L COMPANY TRUCK DRIVER * Sandra Vazquez LPN - 04/25/2024 9:57 AM CST Pt , rodolfo, called update [facility] And is expected to be there 7- 10 days [phone] L COMPANY TRUCK DRIVER * Nishi Topete RN - 04/24/2024 1:43 PM CST Called pt's Rodolfo and she wanted to give update on pt. 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 She states he had a stroke and does have some bleeding on the brain. States they started him on cholesterol medicationand talked about starting blood pressure medication. She states they are now waiting on bed at [facility] on a different floor or they are going to transfer him to [facility] to a rehab unit. She states whatever comes first. Informed her I would let Dr Sanchez know everything that is going on. L COMPANY TRUCK DRIVER * Sebastien Baig - 04/24/2024 12:13 PM CST Pt calling back wants to discuss about her and his health issues please advise. L COMPANY TRUCK DRIVER * Nishi Topete RN - 04/23/2024 12:32 PM CST Pt currently hospitalized. L COMPANY TRUCK DRIVER * Nishi Topete RN - 04/17/2024 3:[address] Matias Corona's office and spoke with Pina. She states they did see pt on 03-31 and pt was referred to Dr Romo's office for cataracts. States Dr does not have his note done and will be backin office on Sunday and will let him know we need the note. L COMPANY TRUCK DRIVER * Nishi Topete RN - 04/17/2024 2:[address] Romo's office again informing them we did not receive records. Call was transferred to in medical records. She states she did not receive request. Informed her on our end, this fax went through. Coversheet faxed again to [phone]. L COMPANY TRUCK DRIVER * Sandra Vazquez LPN - 04/17/2024 11:24 AM CST Pt Rodolfo called wanting referral for eye sent to [facility] in [facility] L COMPANY TRUCK DRIVER * Nishi Topete RN - 04/14/2024 4:19 PM CST Tried to call Dr Matias Corona's office at [phone] and message states they are closed this week due to the holiday. Called Dr Yosvany Rosas DO's office at [phone]. They state to fax face coversheet requesting records to [phone] ATTN: and they will fax us the records. Coversheet faxed. L COMPANY TRUCK DRIVER * Cris Lu - 04/14/2024 3:32 PM CST Sonny calling asking to speak to Dr. Sanchez's nurse. He states he is having some eye issues and wanting to know where [facility] refers to? Dr. Matias Corona is the eye Dr. Who referred him to [facility], Dr. Romo. Sonny said he thought he was going in for cataract surgery, had a bunch of test completed and then referred. The second provider said he would need roughly $3000.00 up front before the surgery could be done and Sonny is just a little sceptical of this. Asking to get a second opinion, and wondering who [facility] refers to? # [phone] Sonny L COMPANY TRUCK DRIVER documented in this encounter Plan of Treatment Upcoming Encounters Date Type Department Care Team (Late st Contact Info) Description 06/09/2024 4:20 PM LOCAL COMPANY TRUCK DRIVER Office Visit [facility] Medical Group Family & Internal Medicine [facility] [address] [place] [id number] [place] [address] [place] [address] documented as of this encounter Visit Diagnoses Not on filedocumented in this encounter Additional Health Concerns Assessment Noted Time PHQ-9 Depression Total Score: 0 12/29/19 21 3:46 PM CDT documented as of this encounter Care Teams Charter Representative Relationship Specialty Start [place] [address] [place] [address] PCP - General FAMILY PRACTICE 02/27/18 documented as of this encounter
--- OUTSIDE RECORDS SUMMARY | 2024-04-27 18:23 | XMS_ITS | Encounter Summary ---
Author Organization [facility] Address [address] [place] [address]. 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 Not on file Not on file documented as of this encounter Plan of Treatment Upcoming Encounters Date Type Department Care Team (Late st Contact Info) Description 06/09/2024 4:20 PM AMORTIZATION CLERK Office Visit [facility] Medical Group Family & Internal Medicine [address] [address] León Sanchez [place] [id number] [place] [address] documented as of this encounter Visit Diagnoses Not on filedocumented in this encounter Additional Health Concerns Assessment Noted Time PHQ-9 Depression Total Score: 0 12/29/19 21 3:46 PM CDT documented as of this encounter Care Teams Senior Drafter Relationship Specialty Start [place] [address] [place] [address] PCP - General FAMILY PRACTICE 02/27/18 documented as of this encounter
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
--- OUTSIDE RECORDS SUMMARY | 2024-04-27 18:23 | XMS_ITS | Encounter Summary ---
Author Organization [facility] Address [address] [place] [address]. 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 Not on file Not on file documented as of this encounter Plan of Treatment Upcoming Encounters Date Type Department Care Team (Late st Contact Info) Description 06/09/2024 4:20 PM DAY HABILITATION SUPERVISOR Office Visit [facility] Family & Internal Medicine [address] [address] León Sanchez [place] [id number] [place] [address] documented as of this encounter Visit Diagnoses Not on filedocumented in this encounter Additional Health Concerns Assessment Noted Time PHQ-9 Depression Total Score: 0 12/29/19 21 3:46 PM CDT documented as of this encounter Care Teams Foiling Machine Adjuster Relationship Specialty Start [place] [address] [place] [address] PCP - General FAMILY PRACTICE 02/27/18 documented as of this encounter
--- OUTSIDE RECORDS SUMMARY | 2024-04-27 18:23 | XMS_ITS | Encounter Summary ---
Author Organization [facility] Address [address] [place] [address]. [place] [address] [place] [address] Care Team Providers Care Armature Winder Helper Repair Name Role Phone León Sanchez MD Primary Care Provider [phone] Reason for Visit * Reason Onset Date Comments Other 03/31/2024 Request call zach k Encounter Details Date Type Department Care Team (Late st Contact Info) Description 03/31/2024 Telephone [facility] Family & Internal Medicine [facility] [address] [place] [address] [place] [address] [place] [address] Other (Request call back ) Social History Tobacco Use Types Packs/Day [...] Sexual Orientation Straight 03/28/2018 4: 44 PM MAMMALOGIST 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 States he told himhe has cataracts and the start of glaucoma. States he is going to work at getting his A1C down intothe 7's. ALOGIST * Sandra Vazquez LPN - 03/31/2024 7:19 AM CST Pt called wanting to nurse of Dr. Sanchez's to call him back Having about vision problems and who is in the hospital that maybe able to see him Pt declined to make appt [phone] ALOGIST documented in this encounter Plan of Treatment Upcoming Encounters Date Type Department Care Team (Late st Contact Info) Description 06/09/2024 4:20 PM MAMMALOGIST Office Visit [facility] Medical Group Family & Internal Medicine [facility] [address] [place] [address] [place] [address] [place] [id number] documented as of this encounter Visit Diagnoses Not on filedocumented in this encounter Additional Health Concerns Assessment Noted Time PHQ-9 Depression Total Score: 0 12/29/19 21 3:46 PM CDT documented as of this encounter Care Teams Armature Winder Helper Repair Relationship Specialty Start [place] [address] [place] [address] PCP - General FAMILY PRACTICE 02/27/18 documented as of this encounter
--- OUTSIDE RECORDS SUMMARY | 2024-04-27 18:23 | XMS_ITS | Encounter Summary ---
Author Organization [facility] Address [address] [place] [address]. 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 Not on file Not on file documented as of this encounter Plan of Treatment Upcoming Encounters Date Type Department Care Team (Late st Contact Info) Description 06/09/2024 4:20 PM BAIT PACKER Office Visit [facility] Medical [facility] Family & Internal Medicine [address] [address] León Sanchez [place] [id number] [place] [address] documented as of this encounter Visit Diagnoses Not on filedocumented in this encounter Additional Health Concerns Assessment Noted Time PHQ-9 Depression Total Score: 0 12/29/19 21 3:46 PM CDT documented as of this encounter Care Teams Superintendent Ammunition Storage Relationship Specialty Start [place] [address] [place] [address] PCP - General FAMILY PRACTICE 02/27/18 documented as of this encounter
--- OUTSIDE RECORDS SUMMARY | 2024-04-27 18:23 | XMS_ITS | Encounter Summary ---
Author Organization [facility] Address [address] [place] [address]. 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 Not on file Not on file documented as of this encounter Plan of Treatment Upcoming Encounters Date Type Department Care Team (Late st Contact Info) Description 06/09/2024 4:20 PM UPSETTING MACHINE OPERATOR Office Visit [facility] Medical Group Family & Internal Medicine [address] [address] León Sanchez [place] [id number] [place] [address] documented as of this encounter Visit Diagnoses Not on filedocumented in this encounter Additional Health Concerns Assessment Noted Time PHQ-9 Depression Total Score: 0 12/29/19 21 3:46 PM CDT documented as of this encounter Care Teams Correction Officer Relationship Specialty Start [place] [address] [place] [address] PCP - General FAMILY PRACTICE 02/27/18 documented as of this encounter
--- OUTSIDE RECORDS SUMMARY | 2024-04-27 18:23 | XMS_ITS | Encounter Summary ---
Author Organization [facility] Address [address] [place] [address]. 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 Not on file Not on file documented as of this encounter Plan of Treatment Upcoming Encounters Date Type Department Care Team (Late st Contact Info) Description 06/09/2024 4:20 PM NAVAL SURFACE FIRE SUPPORT PLANNER Office Visit [facility] Medical Group Family & Internal Medicine [address] [address] León Sanchez [place] [id number] [place] [address] documented as of this encounter Visit Diagnoses Not on filedocumented in this encounter Additional Health Concerns Assessment Noted Time PHQ-9 Depression Total Score: 0 12/29/19 21 3:46 PM CDT documented as of this encounter Care Teams Battery Charger Conveyor Line Relationship Specialty Start [place] [address] [place] [address] PCP - General FAMILY PRACTICE 02/27/18 documented as of this encounter
--- OUTSIDE RECORDS SUMMARY | 2024-04-27 18:23 | XMS_ITS | Encounter Summary ---
Author Organization [facility] Address [address] [place] [address]. [place] [address] [place] [address] Care Team Providers Care Yarn Worker Name Role Phone Etienne Sanchez MD Primary Care Provider [phone] Reason for Visit * Reason Comments Knee Pain Right knee pain and tendon pain Sx started a couple days ago Encounter Details Date Type Department Care Team (Late st Contact Info) Description 01/17/2024 4:40 PM CDT Office Visit [facility] Family & Internal Medicine [address] [address] Etienne Sanchez [place] [id number] [place] [address] Knee Pain (Right knee pain and tendon pain /Sx started a couple days ago ) Social History Tobacco Use Types Packs/Day [...] Sexual Orientation Straight 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 Not on file Not on file documented as of this encounter Last Filed Vital Signs Vital Sign Reading Time Taken Comments Blood Pressure 142/84 01/17/2024 4:31 PM CDT Pulse 105 01/17/2024 4:31 PM CDT Temperature 36.6 ??C (97.8 ??F) 01/17/2024 4:31 PM CD T Respiratory Rate 16 01/17/2024 4:31 PM CDT Oxygen Saturation 97% 01/17/2024 4:31 PM CDT Inhaled Oxygen Concentration - - Weight 63 kg (139 lb) 01/17/2024 4:31 PM CDT Height 175.3 cm (5' 9 ) 01/17/2024 4:31 PM CDT Body Mass Index 20.53 01/17/2024 4:31 PM CDT documented in this encounter Patient Instructions * Patient Instructions* Etienne Sanchez MD - 01/17/2024 4:40 PM CDT 1) Tendonitis: recommend rest, stretching and gentle range of motion exercises. IBU every 8 hours for a week and if no change to notify the office documented in this encounter Progress Notes * Etienne Sanchez MD - 01/17/2024 4:40 PM CDT Images from the original note were not included. Office Progress Note Reason for Visit: Knee Pain (Right knee pain and tendon pain /Sx started a couple days ago ) History of Present Illness: Knee Pain Pt with lateral right knee pain noticed a few days ago was unable to walk but has improved and worst when first getting up in the morning and or climbing ladder or walking down stars no known trauma,redness, warmth, deformity back pain or paresthesia ROS: Review of Systems Constitutional: Negative for fever and malaise/fatigue. Respiratory: Negative for shortness of breath. Cardiovascular: Negative for leg swelling. Musculoskeletal: Positive for myalgias. Negative for back pain, falls and joint pain. Skin: Negative for rash. Neurological: Negative for sensory change and focal weakness. Endo/Heme/Allergies: Does not bruise/bleed easily. Psychiatric/Behavioral: The [...] with meals, Disp: 360 tablet, Rfl: 0 Allergies: Review of patient's allergies indicates: Allergen Reactions Codeine Shortness of Breath States it is had for him to breath Latex Rash Propoxyphene Shortness of Breath Lisinopril Cough Medical History: Past Medical History: Diagnosis Date Arthritis Cancer ([facility]) 03/2017 throat COVID-19 12/01/2020 Diabetes mellitus ([facility]) Surgical History: Past Surgical History: Procedure Laterality [...] reactive to light. Neck: Vascular: No carotid bruit. Cardiovascular: Rate and Rhythm: Normal rate. Pulses: Normal pulses. Pulmonary: Effort: Pulmonary effort is normal. Musculoskeletal: General: Tenderness present. No swelling, deformity or signs of injury. Normal range of motion. Cervical back: Normal range of motion. Left lower leg: No edema. Lymphadenopathy: Cervical: No cervical adenopathy. Skin: General: Skin is warm. Coloration: Skin is not pale. Findings: No erythema or rash. Neurological: General: No focal deficit present. Mental Status: He is alert and oriented to person, place, and time. Cranial Nerves: No cranial nerve deficit. Gait: Gait normal. Psychiatric: Mood and Affect: Mood normal. Behavior: Behavior normal. Filed Vitals: 01/17/24 1631 BP: (!) 142/84 Pulse: (!) 105 Resp: 16 Temp: 97.8 ??F (36.6 ??C) TempSrc: Temporal SpO2: 97% Weight: 63 kg (139 lb) Height: 1.753 m (5' 9 ) Body mass index is 20.53 kg/m??. Diagnoses/Impression: 1. Tendonitis Recommendations and Plan: Patient Instructions 1) Tendonitis: recommend rest, stretching and gentle range of motion exercises. IBU every 8 hours for a week and if no change to notify the office PCP: ETIENNE SANCHEZ MD 01/20/2024 documented in this encounter Plan of Treatment Upcoming Encounters Date Type Department Care Team (Late st Contact Info) Description 06/09/2024 4:20 PM BLOW MACHINE TENDER STARCH SPRAYING Office Visit [facility] Family & Internal Medicine [facility] [address] [place] [address] [place] [address] [place], [place] [id number] documented as of this encounter Visit Diagnoses Diagnosis Tendonitis- Primary Enthesopathy of unspecified site documented in this encounter Additional Health Concerns Assessment Noted Time PHQ-9 Depression Total Score: 0 12/29/19 21 3:46 PM CDT documented as of this encounter Care Teams Yarn Worker Relationship Specialty [place] [address] [place] [address] PCP - General FAMILY PRACTICE 02/27/18 documented as of this encounter
--- OUTSIDE RECORDS SUMMARY | 2024-04-27 18:23 | XMS_ITS | Encounter Summary ---
Author Organization [facility] Address [address] [place] [address]. 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 Not on file Not on file documented as of this encounter Plan of Treatment Upcoming Encounters Date Type Department Care Team (Late Contact Info) Description 06/09/2024 4:20 PM TIGHT BARREL INSPECTOR Office Visit [facility] Family & Internal Medicine [facility] [phone] [place] [address] León Sanchez [place] [id number] [place] [address] documented as of this encounter Visit Diagnoses Not on filedocumented in this encounter Additional Health Concerns Assessment Noted Time PHQ-9 Depression Total Score: 0 12/29/19 21 3:46 PM CDT documented as of this encounter Care Teams Director Of Cardiac Rehabilitation Relationship Specialty Start Date End Date [place] [address] [place] [address] PCP - General FAMILY PRACTICE 02/27/18 documented as of this encounter
--- OUTSIDE RECORDS SUMMARY | 2024-04-27 18:23 | XMS_ITS | Data Portability ---
Author Organization [facility], [facility] Address [address] [address] Assessment No assessment recorded. Plan of Treatment Reminders Order Date Submit Date Provider Last Modified By Organization Details Last Modified Time Details Appointments None recorded. Lab PSA, serum or plasma 2022 023 [email or web address] Not available 3 11:50:53 CBC w/ auto diff 2022 023 Not available 3 11:50:53 vitamin D, 25-hydroxy , total, serum 2022 023 [email or web address] Not available 3 11:50:53 HbA1c (hemoglobi n A1c), blood 2022 023 [email or web address] Not available 3 11:50:53 CRP, high sensitivit y, serum or plasma 2022 023 [email or web address] Not available 3 11:50:53 testostero ne, free + total, serum 2022 023 [email or web address] Not available 3 11:50:53 Referral None recorded. Procedures None recorded. Surgeries None recorded. Imaging XR, knee - WEIGHT BEARING AP, PA FLEX AND LATERAL VIEWS WITH A STANDARD [place] 2022 023 Not available 3 11:13:53 Medication Orders None recorded. Patient TargetsNo targets recorded. Patient InstructionsNo instructions recorded. Reason for Referral None Reported. Problems No Known Problems Procedures Surgical History Date Name Laterality Status Provider Name and Address Organization Details Recorded Time Generic Procedure completed JUANA GILBERT [address], [place], [address], [facility] [employer], [employer] 05/30/2022 11:04:55 Imaging Results None recorded. Procedure Notes None recorded. Medical Equipment None Reported. Allergies Allergen ID Allergen Name Allergen Category Reaction Reaction Severity Criticality Documentation Date Start Date Code Code System Note Provider Name and Address Organization Details Recorded Time 00124 codeine medicatio n Not available Not available Not available 05/30/2022 2670 RxNorm Daryl quesada [facility], [employer] 3 10:00:34 Medications Name Sig Start Date Stop Date Status Note LastModified by Organization Details LastModified Time metformin 500 mg tablet TAKE 2 TABLETS BY MOUTH TWICE DAILY WITH MEALS active Not Available Not Available No t Available amlodipine 5 mg tablet TAKE 1 & 1/2 (ONE & ONE-HALF) TABLETS BY MOUTH ONCE DAILY active Not Available Not Available No t Available amlodipine 10 mg tablet TAKE 1 TABLET BY MOUTH ONCE DAILY active Not Available Not Available No t Available cephalexin 500 mg capsule Take 4 capsules (total of 2g) po one hour prior to procedure . One time dose. 2022 active DO NOT use if PCN and Cephalosp jennyfer Allergies are indicated . Not Available Not Available Not Available diazepam 10 mg tablet Arrive for appointme nt 15 mins early and take 1 tablet while in clinic. Repeat dose as directed by physician . 2022 active Not Available Not Available Not Avai lable Durolane 60 mg/3 mL intra-jose cular syringe dr to inject contents of one syringe into each knee intraarti cularly in office active Not Available Not Available No t Available Vitals Date Recorded Body height Body mass index (BMI) Body weight Provider Name and Address Organization Details Last Updated DateTime 05/30/2022 172.72 cm 22 kg/m2 39584.89 g Daryl French [employer] 05/30/2022 10:00:25 Social History Question Answer Notes LastModified by Organizat ion Details LastModified Time Tobacco Smoking Status Never Smoker Daryl quesada [facility], [employer] 05/30/2022 10:01:09 What Is Your Level Of Alcohol Consumption? None [email or web address] Information not available 05/30/2022 What Is Your Relationship Status? [email or web address] Information not available 05/30/2022 Sex: Unknown Functional Status None recorded. Mental Status None recorded. Family History Relationship Description Onset Age of this Age Resolved Age Notes LastModified by Organization Details LastModified Time Father Malignant neoplastic disease [email or web address] Not available 2022 10:00:54 Mother Malignant neoplastic disease [email or web address] Not available 2022 10:00:54 Medical History Condition Response Other Cancer N Coronary Artery Disease N HIV or AIDS N Gout N Kidney Stones N Hyperthyroidism N Breast Cancer N Head Trauma/Injury N Hernia N Lung Cancer N COPD N Depression N Blood Clots N Lung Disease N Hypothyroidism N Pacemaker N Parkinson's N Anxiety Disorder N Multiple Sprains N Arthritis Y Alcohol / Substance Abuse N Kidney Cancer N Cancer N Stroke N Melanoma N Neck Injury N Leg or Foot Ulcers N High Cholesterol N Skin Cancer N Liver Disease N Rheumatoid Arthritis N Fibromyalgia N Headaches N Concussion N Kidney Disease N Heart Problems N Scoliosis N Chronic use of Pain Medication N Prostate Cancer N Migraines N Thyroid Problems N Alzheimers N Autoimmune Disorder N Anemia N Multiple Sclerosis N Tendon Tear N Ulcers N Heart Attack ([place]) N Osteopenia N Diabetes Y Bleeding Disorder N Seizures/Epilepsy N Cardiac Stent N Tuberculosis N A-FIB N Lymphoma N Urinary Tract Infection N Back Problems N Diverticulitis N Asthma N Lupus N Peripheral Vascular Disease N Sleep Apnea N Sleep Disorder N GERD/Reflux N Hepatitis N Aneurysm N Thyroid Cancer N Heart Disease N Pulmonary Embolism N Hypertension Y Osteoporosis N Past Encounters Encounter ID Performer Location Encounter Start Date Encounter Closed Date Diagnosis/Indication Diagnosis SNOMED-CT Code Diagnosis ICD10 Code Diagnosis Note [id number] JUANA GILBERT [facility] [address] [facility] ,[address] [place] [address] 05/30/2022 09:47:33 05/30/2022 11:13:53 Bilateral osteoarthritis of knees [id number] 27256 M17.0 At today? s office visit the patient? s diagnosis and treatment options were discussed in great detail. The patient was provided with informatio n to make an informativ e decision on the next steps for treatment. The patient has tried several conservati ve measures including but not limited to PT, rest, ice, and NSAIDs with no beneficial relief. Given the imaging results and the duration of the patient? s symptoms I would recommend BMAC with fat as they are an excellent candidate. [facility]. The risk and benefits were discussed with the patient as well as functional and pain improvemen t outcomes. The procedure was discussed in detail as well as the recovery period. We also discussed obtaining labs to ensure the patient is optimized for maximal results. I also discussed other conservati ve options. The patients case and treatment plan were reviewed in detail with Dr. Howell.PLAN : [facility]/fat to bilateral knees All questions were answered, the patient understood the treatment plan.Great er than 45 minutes face-to-fa ce visit with more than 50% of my time spent counseling the patient about their diagnosis including pathophysi ology and treatment options. Knee pain [id number] M25.5 69 Screening procedure 2012 5006 Z13.9 R53.83 M89.9 M94.9 Z12.5 Z01.812 E55.9 Z13.228 Z13.1 M02.80 Derangemen t of medial meniscus [id number] M23.306 Health Concerns Section Related Observation LastModified by Organization Detai ls LastModified Time None Recorded Concern Status LastModified by Organization Details LastModified Time None Recorded Advance Directives Directive None Recorded Payers Encounter Date Sequence Insurance Name Policy Number Policy Messer Covered Member ID Messer Member ID Guarantor Name 05/30/2022 1 [facility] [id number] Sonny Singleton [id number] Sonny Singleton Notes Date Note Type Note Provider Name and Address Organization Details Recorded Time 05/30/2022 text/html 61-year-old male who comes in today complaining of bilateral knee pain left greater than right pain is probably on the anterior medial aspect of both knees. He states they are worse when going up and down stairs as well as when he lays down at night in his knees touch he gets pain and discomfort. He has pain and discomfort with repetitive flexion extension and movement. He is unable to take nonsteroidal anti-inflammatories. He does apply different topicals to help with his pain and discomfort as well as ice. He has tried corticosteroid injections as well as hyaluronic acid which provide him with very temporary relief. Pain score 5/10 JUANA GILBERT [address], [place], [address], [facility], [facility] 05/30/2022 11:17:15
--- OUTSIDE RECORDS SUMMARY | 2024-04-27 18:23 | XMS_ITS | Encounter Summary ---
Author Organization [facility] Address [address] [place] [address]. [place] [address] [place] [address] Care Team Providers Care Motor Vehicles Inspector Name Role Phone León Sanchez MD Primary Care Provider [phone] Reason for Visit * Reason Comments Knee Pain Bilateral knee pain Encounter Details Date Type Department Care Team (Late st Contact Info) Description 07/02/2023 4:00 PM CDT Office Visit [facility] [address] [facility] [address] [place] [address] [place] [address] [place], [place] [id number] Knee Pain (Bilateral knee pain ) Social History Tobacco Use Types Packs/Day [...] Sexual Orientation Straight 03/28/2018 4: 44 PM 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 Not on file Not on file documented as of this encounter Last Filed Vital Signs Vital Sign Reading Time Taken Comments Blood Pressure 207/123 07/02/2023 4:01 PM CDT Pulse 90 07/02/2023 4:01 PM CDT Temperature 36.7 ??C (98 ??F) 07/02/2023 4:01 PM CDT Respiratory Rate 20 07/02/2023 4:01 PM CDT Oxygen Saturation 98% 07/02/2023 4:01 PM CDT Inhaled Oxygen Concentration - - Weight 65.8 kg (145 lb) 07/02/2023 4:01 PM CDT Height 175.3 cm (5' 9 ) 07/02/2023 4:01 PM CDT Body Mass Index 21.41 07/02/2023 4:01 PM CDT documented in this encounter Progress Notes * Gino Casey - 07/03/2023 1:55 PM CDTAssociated Problem(s): Bilateral primary osteoarthritis of knee Recommendation at this time: went over the risks, benefits as well as the alternatives. Steroid wasinjected bilateral knees today. Tolerated it well. Patient will be seen back in three months. * Luis Fernando Parra DO - 07/02/2023 4:00 PM CDT Images from the original note were not included. Office Visit Reason for Visit: Knee Pain (Bilateral knee pain ) History of Present Illness: Sonny Singleton is a 62-year-old male who presents for bilateral knee pain. Patient has been receiving steroid injections and gel to his knees and is interested in getting repeat steroid injections today. He reports that his knees have been feeling better as he has been doing the steroid injections regularly, but he generally can tell when the three months is up because his knees start to bother him again. He reports that the steroid injections seem to help more than the gel shots. Patient reports that the left knee is worse than the right, and that he may be interested in surgical interventiononce he is able to retire in a year and a half. Review of Systems: Constitutional: Negative for chills [...] Outpatient Medications Marked as Taking for the 07/02/23 encounter (Office Visit) with Luis Fernando Parra, DO Medication Sig Dispense Refill amLODIPine (NORVASC) 10 MG tablet Take 1 tablet by mouth once daily 90 tablet 0 aspirin EC 81 MG tablet Take 1 tablet (81 mg total) by mouth daily. meloxicam (MOBIC) 15 MG tablet Take 1 tablet (15 mg total) by mouth daily. 30 tablet 2 metFORMIN (GLUCOPHAGE) 500 MG tablet take 2 tablets by mouth twice daily with meals 360 tablet 0 Review of patient's allergies indicates: Allergen Reactions Codeine Shortness of Breath States it is had for him to breath Latex Rash Propoxyphene Shortness of Breath Lisinopril Cough Past Medical History: Diagnosis Date Arthritis Cancer ([facility]) 03/2017 throat COVID-19 12/01/2020 Diabetes mellitus ([facility]) Past Surgical History: Procedure Laterality Date ABDOMINAL [...] Mother Diabetes Father Vital Signs: Filed Vitals: 07/02/23 1601 BP: (!) 207/123 Pulse: 90 Resp: 20 Temp: 98 ??F (36.7 ??C) TempSrc: Temporal SpO2: 98% Weight: 65.8 kg (145 lb) Height: 1.753 m (5' 9 ) Estimated BMI Today: Estimated body mass index is 21.41 kg/m?? as calculated from the following: Height as of this encounter: 1.753 m (5' 9 ). Weight as of this encounter: 65.8 kg (145 lb). Physical Exam: Constitutional: he is oriented [...] Nursing note and vitals reviewed. Ortho Exam: Mild varus deformity bilateral knees. Crepitus range of motion. No significant effusion. Negative ballotable patella. Negative fluid wave. No open wound or skin breakdown. No clubbing, cyanosis, edema or adenopathy. Neurovascularly intact. Imaging: No new x-rays Assessment/Plan: Problem List Items Addressed This Visit Bilateral primary osteoarthritis of knee - Primary Recommendation at this time: went over the risks, benefits as well as the alternatives. Steroid wasinjected bilateral knees today. Tolerated it well. Patient will be seen back in three months. Relevant Orders DRAIN/INJECT LARGE JOINT/BURSA Procedure: We discussed the risks, benefits and alternatives. All questions were answered and informed consentis obtained. The right knee is prepped with alcohol and Betadine. Under sterile technique an 18-gauge needle was inserted to the medial patellofemoral joint and [1 cc] milliliters of synovial fluid is aspirated. (Kenalog 80mg/2ml and 4ml Markane 0.5%) is instilled. The patient tolerated the procedure well without adverse effects. Area is cleansed and a Band-Aid is placed. We discussed the risks, benefits and alternatives. All questions were answered and informed consentis obtained. The left knee is prepped with alcohol and Betadine. Under sterile technique an 18-gauge needle was inserted to the medial patellofemoral joint and [1 cc] milliliters of synovial fluid isaspirated. (Kenalog 80mg/2ml and 4ml Markane 0.5%) is instilled. The patient tolerated the procedure well without adverse effects. Area is cleansed and a Band-Aid is placed. Portions of this note were dictated using [employer] speech recognition software. Occasional wrong wordor sound-alike substitutions may have occurred due to the inherent limitations of voice recognition software. Please read the chart carefully and recognize, using context, where the substitutions may have occurred. Gino Lopez scribe, am personally taking down the notes in the presence of LUIS FERNANDO PARRA DO. [07/03/23, 1:55 PM] I, Luis Fernando Parra DO personally performed the services described in this documentation. All medical record entries and diagnoses made by the scribe were at my direction and in my presence. I have reviewed the chart and agree that the record reflects my personal performance and is accurate and complete. documented in this encounter Plan of Treatment Upcoming Encounters Date Type Department Care Team (Late st Contact Info) Description 06/09/2024 4:20 PM MESSENGER FLOORPERSON Office Visit [facility] Medical Group Family & Internal Medicine [facility] [address] [place] [phone] León Sanchez [place] [id number] [place] [address] Scheduled Orders Name Type Priority Associated Diagnoses Orde r Schedule DRAIN/INJECT LARGE JOINT/BURSA Procedures Routine Bilateral primary osteoarthritis of knee Ordered: 07/02/2023 documented as of this encounter Visit Diagnoses Diagnosis Bilateral primary osteoarthritis of knee- Primary Type 2 diabetes mellitus without complication, with long-term current use of insulin ([facility]) documented in this encounter Administered Medications Inactive Administered Medications - up to 3 most recent administrations Medication Order MAR Action Action Date Dose Rate Site BUpivacaine 0.5 % (MARCAINE) 0.5 % injection 4 mL 4 mL, Intra-articular, Once, 1 dose, On Sun07/02/23 at 1615Indications:Bilateral primary osteoarthritis of knee Given 07/02/2023 4:03 PM CDT 4 mLs Right Knee BUpivacaine 0.5 % (MARCAINE) 0.5 % injection 4 mL 4 mL, Intra-articular, Once, 1 dose, On Sun07/02/23 at 1615Indications:Bilateral primary osteoarthritis of knee Given 07/02/2023 4:03 PM CDT 4 mLs Left Knee triamcinolone acetonide (KENALOG-40) injection 80 mg 80 mg, Intra-articular, Once, 1 dose, On 07/02/23 at 1615, Shake WellIndications:Bilateral primary osteoarthritis of knee Given 07/02/2023 4:04 PM CDT 80 mg Right Knee triamcinolone acetonide (KENALOG-40) injection 80 mg 80 mg, Intra-articular, Once, 1 dose, On 07/02/23 at 1615, Shake WellIndications:Bilateral primary osteoarthritis of knee Given 07/02/2023 4:04 PM CDT 80 mg Left Knee documented in this encounter Additional Health Concerns Assessment Noted Time PHQ-9 Depression Total Score: 0 12/29/19 21 3:46 PM CDT documented as of this encounter Care Teams Motor Vehicles Inspector Relationship Specialty Start [place] [address] [place] [address] PCP - General FAMILY PRACTICE 02/27/18 documented as of this encounter
--- OUTSIDE RECORDS SUMMARY | 2024-04-27 18:23 | XMS_ITS | Encounter Summary ---
Author Organization [facility] Address [address] [place] [address]. 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 Unable to contact. Vm left for patient to reach out to provider if they decide to schedule appt documented in this encounter Plan of Treatment Upcoming Encounters Date Type Department Care Team (Late st Contact Info) Description 06/09/2024 4:20 PM SUPERVISOR FUSING ROOM Office Visit [facility] Medical Group Family & Internal Medicine [facility] [address] [place] [phone] [place] [address] [place], [place] [phone] documented as of this encounter Visit Diagnoses Not on filedocumented in this encounter Additional Health Concerns Assessment Noted Time PHQ-9 Depression Total Score: 0 12/29/19 21 3:46 PM CDT documented as of this encounter Care Teams Revolving Field Assembler Relationship Specialty Start Date [place] [address] [place], [place] [phone] PCP - General FAMILY PRACTICE 02/27/18 documented as of this encounter
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
--- OUTSIDE RECORDS SUMMARY | 2024-04-27 18:23 | XMS_ITS | Encounter Summary ---
Author Organization [facility] Address [address] [place] [address]. 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 Medical Group Family & Internal Medicine [address] [phone] León Sanchez [place] [id number] [place] [address] documented as of this encounter Visit Diagnoses Not on filedocumented in this encounter Additional Health Concerns Assessment Noted Time PHQ-9 Depression Total Score: 0 12/29/19 21 3:46 PM CDT documented as of this encounter Care Teams Front Desk Specialist Relationship Specialty Start [place] [address] [place] [address] PCP - General FAMILY PRACTICE 02/27/18 documented as of this encounter
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
--- OUTSIDE RECORDS SUMMARY | 2024-04-27 18:23 | XMS_ITS | Encounter Summary ---
Author Organization [facility] Address [address] [place] [address]. 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 Not on file documented as of this encounter Plan of Treatment Upcoming Encounters Date Type Department Care Team (Late st Contact Info) Description 06/09/2024 4:20 PM BARREL RIB MATTING MACHINE OPERATOR Office Visit [facility] Family & Internal Medicine [address] [address] León Sanchez [place] [id number] [place] [address] documented as of this encounter Visit Diagnoses Not on filedocumented in this encounter Additional Health Concerns Assessment Noted Time PHQ-9 Depression Total Score: 0 12/29/19 21 3:46 PM CDT documented as of this encounter Care Teams Cellophane Bag Machine Operator Relationship Specialty Start [place] [address] [place] [address] PCP - General FAMILY PRACTICE 02/27/18 documented as of this encounter
--- OUTSIDE RECORDS SUMMARY | 2024-04-27 18:24 | XMS_ITS | Encounter Summary ---
Author Organization [facility] Address [address] [place] [address]. [place] [address] [place] [address] Care Team Providers Care Squeezer Operator Name Role Phone León Sanchez MD Primary Care Provider [phone] Encounter Details Date Type Department Care Team (Latest Contact Info) Description 01/04/2021 Travel Social History Tobacco Use Types Packs/Day Years Used Date Smoking Tobacco: Never Smokeless Tobacco: Former Snuff Quit: 03/2017 Alcohol Use Standard Drinks/Week Comments No 0 (1 standard drink = 0.6 oz pur e alcohol) AUDIT-C Answer Date Recorded Frequency of Alcohol Consumption Never 02/26/2018 Average Number of Drinks Not on file 018 Frequency of Binge Drinking Not on file 02/14 PHQ-2 Answer Date Recorded PHQ-2 Score - If the patient scores above 3, please move on to questions 3-9 0 12/28/2020 Education Answer Date Recorded What is the highest level of school you have completed or the highest degree you have received? 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 No / Unsure 01/04/2021 2:56 PM CDT documented as of this encounter Plan of Treatment Upcoming Encounters Date Type Department Care Team (Late st Contact Info) Description 06/09/2024 4:20 PM HOME STAGER Office Visit [facility] Family & Internal Medicine [facility] [address] [place] [address] [place] [address] [place] [address] documented as of this encounter Visit Diagnoses Not on filedocumented in this encounter Additional Health Concerns Assessment Noted Time PHQ-9 Depression Total Score: 0 12/29/19 21 3:46 PM CDT documented as of this encounter Care Teams Squeezer Operator Relationship Specialty Start [place] [address] [place] [address] PCP - General FAMILY PRACTICE 02/27/18 documented as of this encounter
--- OUTSIDE RECORDS SUMMARY | 2024-04-27 18:24 | XMS_ITS | Encounter Summary ---
Author Organization [facility] Address [address] [place] [address]. 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 No / Unsure 06/27/2021 3:56 PM CDT documented as of this encounter Plan of Treatment Upcoming Encounters Date Type Department Care Team (Late st Contact Info) Description 06/09/2024 4:20 PM FIELD RECORDER Office Visit [facility] Family & Internal Medicine [facility] [address] [place] [address] [place] [address] [place] [address] documented as of this encounter Visit Diagnoses Not on filedocumented in this encounter Additional Health Concerns Assessment Noted Time PHQ-9 Depression Total Score: 0 12/29/19 21 3:46 PM CDT documented as of this encounter Care Teams Deburrer Machine Relationship Specialty Start [place] [address] [place] [address] PCP - General FAMILY PRACTICE 02/27/18 documented as of this encounter
--- OUTSIDE RECORDS SUMMARY | 2024-04-27 18:24 | XMS_ITS | Encounter Summary ---
Author Organization [facility] Address [address] [place] [address]. [place] [address] [place] [address] Care Team Providers Care [place] Actor Name Role Phone León Sanchez MD Primary Care Provider [phone] Encounter Details Date Type Department Care Team (Latest Contact Info) Description 08/14/2022 Travel Social History Tobacco Use Types Packs/Day [...] please move on to questions 3-9 0 03/10/2022 Education Answer Date Recorded What is the highest level of school you have completed or the highest degree you have received? 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 No / Unsure 08/14/2022 3:46 PM CDT documented as of this encounter Plan of Treatment Upcoming Encounters Date Type Department Care Team (Late st Contact Info) Description 06/09/2024 4:20 PM STAY CUTTER Office Visit [facility] Family & Internal Medicine [facility] [address] [place] [address] [place] [address] [place] [address] documented as of this encounter Visit Diagnoses Not on filedocumented in this encounter Additional Health Concerns Assessment Noted Time PHQ-9 Depression Total Score: 0 12/29/19 21 3:46 PM CDT documented as of this encounter Care Teams [place] Actor Relationship Specialty Start [place] [address] [place] [address] PCP - General FAMILY PRACTICE 02/27/18 documented as of this encounter
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
--- OUTSIDE RECORDS SUMMARY | 2024-04-27 18:24 | XMS_ITS | Encounter Summary ---
Author Organization [facility] Address [address] [place] [address]. 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 No / Unsure 08/26/2021 3:55 PM CDT documented as of this encounter Plan of Treatment Upcoming Encounters Date Type Department Care Team (Late st Contact Info) Description 06/09/2024 4:20 PM ETL DATA ARCHITECT Office Visit [facility] Family & Internal Medicine [facility] [address] [place] [address] [place] [address] [place] [address] documented as of this encounter Visit Diagnoses Not on filedocumented in this encounter Additional Health Concerns Assessment Noted Time PHQ-9 Depression Total Score: 0 12/29/19 21 3:46 PM CDT documented as of this encounter Care Teams Curing Supervisor Relationship Specialty Start [place] [address] [place] [address] PCP - General FAMILY PRACTICE 02/27/18 documented as of this encounter
--- OUTSIDE RECORDS SUMMARY | 2024-04-27 18:24 | XMS_ITS | Encounter Summary ---
Author Organization [facility] Address [address] [place] [address]. 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 No / Unsure 10/07/2021 10:29 AM CDT documented as of this encounter Plan of Treatment Upcoming Encounters Date Type Department Care Team (Late st Contact Info) Description 06/09/2024 4:20 PM STAFF DEVELOPMENT MANAGER Office Visit [facility] Family & Internal Medicine [facility] [address] [place] [address] [place] [address] [place] [address] documented as of this encounter Visit Diagnoses Not on filedocumented in this encounter Additional Health Concerns Assessment Noted Time PHQ-9 Depression Total Score: 0 12/29/19 21 3:46 PM CDT documented as of this encounter Care Teams Fittings Finisher Relationship Specialty Start Date [place] [address] [place] [address] PCP - General FAMILY PRACTICE 02/27/18 documented as of this encounter
--- OUTSIDE RECORDS SUMMARY | 2024-04-27 18:24 | XMS_ITS | Encounter Summary ---
Author Organization [facility] Address [address] [place] [address]. 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 on file Not [...] st Contact Info) Description 06/09/2024 4:20 PM SOFTWARE TEAM LEADER Office Visit [facility] Group Family & Internal Medicine [facility] [address] [place] [address] [place] [address] [place] [address] documented as of this encounter Visit Diagnoses Not on filedocumented in this encounter Additional Health Concerns Assessment Noted Time PHQ-9 Depression Total Score: 0 12/29/19 21 3:46 PM CDT documented as of this encounter Care Teams Senior Sales Executive Relationship Specialty Start [place] [address] [place] [address] PCP - General FAMILY PRACTICE 02/27/18 documented as of this encounter
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
--- OUTSIDE RECORDS SUMMARY | 2024-04-27 18:24 | XMS_ITS | Encounter Summary ---
Author Organization [facility] Address [address] [place] [address]. [place] [address] [place] [address] Care Team Providers Care Change Management Analyst Name Role Phone León Sanchez MD Primary Care Provider [phone] Reason for Visit * Reason Onset Date Comments Question 11/26/2020 Encounter Details Date Type Department Care Team (Late st Contact Info) Description 11/26/2020 Telephone [facility] Medical Group Family & Internal Medicine [facility] [address] [place] [address] [place] [address] [place] [address] Question Social History Tobacco Use [...] please move on to questions 3-9 0 10/20/2020 Education Answer Date Recorded What is the highest level of school you have completed or the highest degree you have received? 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 Informed to drink plenty of fluids. Quarantine. If shortness of breath or CP occurs to go to the ER-voiced understanding-took information for also. [facility]-voiced understanding * Jolanta Barclay - 11/26/2020 10:15 AM CDT Patient called and said that him and his have COVID and they have a cough and they would like to know if there is anything that they can do or get to help. Please advise and call the patient back at [phone] documented in this encounter Plan of Treatment Upcoming Encounters Date Type Department Care Team (Late st Contact Info) Description 06/09/2024 4:20 PM PRINCIPAL ARCHITECT Office Visit [facility] Medical Group Family & Internal Medicine [facility] [address] [place] [address] [place] [address] [place] [address] documented as of this encounter Visit Diagnoses Not on filedocumented in this encounter Additional Health Concerns Assessment Noted Time PHQ-9 Depression Total Score: 0 10/21/19 21 2:25 PM CDT documented as of this encounter Care Teams Change Management Analyst Relationship Specialty Start [place] [address] [place] [address] PCP - General FAMILY PRACTICE 02/27/18 documented as of this encounter
--- OUTSIDE RECORDS SUMMARY | 2024-04-27 18:24 | XMS_ITS | Encounter Summary ---
Author Organization [facility] Address [address] [place] [address]. [place] [address] [place] [address] Care Team Providers Care Produce Assistant Name Role Phone León Sanchez MD Primary Care Provider [phone] Encounter Details Date Type Department Care Team (Latest Contact Info) Description 10/01/2020 Travel Social History Tobacco Use Types Packs/Day [...] please move on to questions 3-9 0 09/17/2020 Education Answer Date Recorded What is the highest level of school you have completed or the highest degree you have received? 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 No / Unsure 10/01/2020 2:10 PM CDT documented as of this encounter Plan of Treatment Upcoming Encounters Date Type Department Care Team (Late st Contact Info) Description 06/09/2024 4:20 PM APPLIED SCIENCE [employer] TECHNOLOGIES DEAN Office Visit [facility] Medical [facility] Family & Internal Medicine [facility] [address] [place] [address] [place] [address] [place] [address] documented as of this encounter Visit Diagnoses Not on filedocumented in this encounter Additional Health Concerns Assessment Noted Time PHQ-9 Depression Total Score: 0 09/18/19 21 8:43 AM CDT documented as of this encounter Care Teams Produce Assistant Relationship Specialty Start [place] [address] [place] [address] PCP - General FAMILY PRACTICE 02/27/18 documented as of this encounter
--- OUTSIDE RECORDS SUMMARY | 2024-04-27 18:24 | XMS_ITS | Encounter Summary ---
Author Organization [facility] Address [address] [place] [address]. 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 No / Unsure 09/17/2020 8:34 AM CDT documented as of this encounter Plan of Treatment Upcoming Encounters Date Type Department Care Team (Late st Contact Info) Description 06/09/2024 4:20 PM PLASTIC TILE SETTER Office Visit [facility] Medical Group Family & Internal Medicine [facility] [address] [place] [address] [place] [address] [place] [address] documented as of this encounter Visit Diagnoses Not on filedocumented in this encounter Additional Health Concerns Assessment Noted Time PHQ-9 Depression Total Score: 0 09/18/19 21 8:43 AM CDT documented as of this encounter Care Teams Track Broom Operator Relationship Specialty Start [place] [address] [place] [address] PCP - General FAMILY PRACTICE 02/27/18 documented as of this encounter
--- OUTSIDE RECORDS SUMMARY | 2024-04-27 18:24 | XMS_ITS | Encounter Summary ---
Author Organization [facility] Address [address] [place] [address]. [place] [address] [place] [address] Care Team Providers Care Park Interpretive Ranger Name Role Phone León Sanchez MD Primary Care Provider [phone] Reason for Visit * Reason Onset Date Comments Imm/Inj 10/29/2020 Encounter Details Date Type Department Care Team (Late st Contact Info) Description 10/29/2020 Telephone [facility] Medical [facility] Multispecialty Care - [address], [address] [place] [phone] Jennifer Merceeds, OPERATIONS PROCESSOR-C Imm/Inj Social History Tobacco Use Types Packs/Day Years [...] Sexual Orientation Straight 03/28/2018 4: 44 PM OFFSET PRESS ASSISTANT 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 No / Unsure 10/20/2020 1:52 PM CDT documented as of this encounter Progress Notes * Louie Sorto MA - 11/15/2020 1:14 PM CDT Spoke with patient and he is scheduled for 3 consecutive appointments with MANUEL. * Louie Sorto MA - 11/15/2020 11:21 AM CDT Spoke with Ramirez regarding message above. * Louie Sorto MA - 11/15/2020 11:20 AM CDT Called insurance company no auth needed. Reference code is [id number]. * Nahed Santos - 11/15/2020 8:48 AM CDT Vicky, Sonny's , called today asking if the injections has been approved. Please call her to discuss. * Louie Sorto MA - 10/29/2020 4:10 PM CDT Auth still pending medical notes faxed to [facility] awaiting approval. * Brittany Green - 10/29/2020 2:00 PM CDT Patient is asking if his insurance has approved injections in his right knee. Call patient with update [phone]. documented in this encounter Plan of Treatment Upcoming Encounters Date Type Department Care Team (Late st Contact Info) Description 06/09/2024 4:20 PM OFFSET PRESS ASSISTANT Office Visit [facility] Family [facility] [address] [place] [address] [place] [address] [place] [address] documented as of this encounter Visit Diagnoses Not on filedocumented in this encounter Additional Health Concerns Assessment Noted Time PHQ-9 Depression Total Score: 0 10/21/19 21 2:25 PM CDT documented as of this encounter Care Teams Park Interpretive Ranger Relationship Specialty Start [place] [address] [place] [address] PCP - General FAMILY PRACTICE 02/27/18 documented as of this encounter
--- OUTSIDE RECORDS SUMMARY | 2024-04-27 18:24 | XMS_ITS | Encounter Summary ---
Author Organization [facility] Address [address] [place] [address]. [place] [address] [place] [address] Care Team Providers Care Revival Clerk Name Role Phone León Sanchez MD Primary Care Provider [phone] Reason for Referral * Imaging (Routine) - Closed Specialty Diagnoses / Procedures Referred By Hugo sharp Referred To Contact RADIOLOGY Diagnoses Primary osteoarthritis of left knee Primary osteoarthritis of right knee Procedures OUS GUIDE NEEDLE PLCMT ORTHO Jennifer Mercedes NP-C Referral ID Status Reason Start Date Expiration Date Visits Re quested Visits Authorized [id number] Closed 01/04/2021 02/04/2022 1 1 Reason for Visit * Reason Comments Follow Up bilateral knee Eufle xxa Encounter Details Date Type Department Care Team (Late st Contact Info) Description 01/04/2021 3:20 PM CDT Office Visit [facility] Medical Group Multispecialty Care - [address], [address] [place] [id number] Jennifer Mercedes NP-Cookie Follow Up (bilateral knee Euflexxa ) Social History Tobacco Use Types Packs/Day [...] Sexual Orientation Straight 03/28/2018 4: 44 PM 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 No / Unsure 01/04/2021 2:56 PM CDT documented as of this encounter Last Filed Vital Signs Vital Sign Reading Time Taken Comments Blood Pressure 152/80 01/04/2021 3:08 PM CDT Pulse 82 01/04/2021 3:08 PM CDT Temperature - - Respiratory Rate - - Oxygen Saturation - - Inhaled Oxygen Concentration - - Weight 67.1 kg (148 lb) 01/04/2021 3:08 PM CDT Height 175.3 cm (5' 9 ) 01/04/2021 3:08 PM CDT Body Mass Index 21.86 01/04/2021 3:08 PM CDT documented in this encounter Progress Notes * ALINA Brown - 01/04/2021 3:20 PM CDTSummary: BILATERAL KNEE EUFLEXXA #3 DX: OA PROCEDURE: Skin was prepped with Chloraprep swab. Next, I injected 2 cc Eulfexxa with 22g needle. Ultrasound imaging was utilized for needle guidance. This was done with sterile technique. The patient toleratedit well. SUZANNE Palma, assisted with procedure. Patient has been counseled to look out for signs and symptoms of infection such as as significant pain, swelling, redness, fever over 100, and difficulty moving the affected area. Patient verbalized understanding. Ultrasound image saved on machine and is available to view in chart under imaging tab. documented in this encounter Plan of Treatment Upcoming Encounters Date Type Department Care Team (Late st Contact Info) Description 06/09/2024 4:20 PM CONTROLS PROJECT ENGINEER Office Visit [facility] Medical Group Family & Internal Medicine [facility] [address] [place] [address] [place] [address] [place] [address] Scheduled Orders Name Type Priority Associated Diagnoses Orde r Schedule ARTHROCENTESIS MAJOR JOINT W/ ULTRASOUND GUIDANCE Procedures Routine Primary osteoarthritis of left knee Ordered: 01/04/2021 ARTHROCENTESIS MAJOR JOINT W/ ULTRASOUND GUIDANCE Procedures Routine Primary osteoarthritis of right knee Ordered: 01/04/2021 documented as of this encounter Results * OUS GUIDE NEEDLE PLCMT ORTHO (01/04/2021 2:58 PM CDT) Anatomical Region Laterality Modality Ultrasound 01/04/2021 3:05 PM CDT Narrative 01/04/2021 3:05 PM CDT This report does not contain a radiologist's interpretation. Please review associated procedure and/or operative report. Procedure Note Kareen Herrera MD - 01/04/2021 This report does not contain a radiologist's interpretation. Please review associated procedure and/or operative report. us Jennifer Mercedes ASSOCIATE EMBALMER/FUNERAL DIRECTOR-C ULTRASOUND Final Re sult documented in this encounter Visit Diagnoses Diagnosis Primary osteoarthritis of left knee- Primary Primary localized osteoarthrosis, lower leg Primary osteoarthritis of right knee Primary localized osteoarthrosis, lower leg documented in this encounter Administered Medications Inactive Administered Medications - up to 3 most recent administrations Medication Order MAR Action Action Date Dose Rate Site hyaluronate sodium (EUFLEXXA) injection 20 mg 20 mg (2 mL), Intra-articular, Once, 1 dose, On Sun01/04/21 at 1530, LeftIndications:Primary osteoarthritis of left knee Given 01/04/2021 3:41 PM CDT 20 mg Left Knee hyaluronate sodium (EUFLEXXA) injection 20 mg 20 mg (2 mL), Intra-articular, Once, 1 dose, On Sun01/04/21 at 1530, RightIndications:Primary osteoarthritis of right knee Given 01/04/2021 3:40 PM CDT 20 mg Right Knee documented in this encounter Additional Health Concerns Assessment Noted Time PHQ-9 Depression Total Score: 0 12/29/19 3:46 PM CDT documented as of this encounter Care Teams Revival Clerk Relationship Specialty Start [place] [address] [place] [address] PCP - General FAMILY PRACTICE 02/27/18 documented as of this encounter
--- OUTSIDE RECORDS SUMMARY | 2024-04-27 18:24 | XMS_ITS | Encounter Summary ---
Author Organization [facility] Address [address] [place] [address]. 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 file Not on file documented as of this encounter Plan of Treatment Upcoming Encounters Date Type Department Care Team (Late st Contact Info) Description 06/09/2024 4:20 PM CIRCULAR TANK COOPER Office Visit [facility] Medical Group Family & Internal Medicine [address] [address] [place]ón [place] [id number] [place] [address] documented as of this encounter Visit Diagnoses Not on filedocumented in this encounter Additional Health Concerns Assessment Noted Time PHQ-9 Depression Total Score: 0 12/29/19 21 3:46 PM CDT documented as of this encounter Care Teams Patient Transportation Driver Relationship Specialty Start [place] [address] [place] [address] PCP - General FAMILY PRACTICE 02/27/18 documented as of this encounter
--- OUTSIDE RECORDS SUMMARY | 2024-04-27 18:24 | XMS_ITS | Encounter Summary ---
Author Organization [facility] Address [address] [place] [address]. [place] [address] [place] [address] Care Team Providers Care Roof Fitter Name Role Phone León Sanchez MD Primary Care Provider [phone] Encounter Details Date Type Department Care Team (Late st Contact Info) Description 07/13/2022 Orders Only 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 Parra on 07/17/2022 documented in this encounter Plan of Treatment Upcoming Encounters Date Type Department Care Team (Late st Contact Info) Description 06/09/2024 4:20 PM ELECTRICAL WIRER Office Visit [facility] Medical Group Family & Internal Medicine [facility] [address] [place] [address] [place] [address] [place] [address] documented as of this encounter Results * XR KNEE LT MIN 4V (07/17/2022 9:42 AM CDT) Anatomical Region Laterality Modality Knee Radiographic Keshia ging 07/17/2022 9:47 AM CDT Impressions 07/17/2022 9:48 AM CDT IMPRESSION: 1. ??There is no evidence of acute fracture, dislocation, or osseous erosion. Minor loss of medial joint space without osteophyte. 2. ??Lateral joint spaces well-maintained without osteophyte. Mild tibial spine spurring. 3. ??No radiopaque foreign bodies or abnormal soft tissue calcifications noted. 3. ??Patella is intact. ??Very minor patellar spur. Small suprapatellar joint effusion. Ordered By: LUIS FERNANDO PARRA Interpreted By: Abigail Aranda, 07/17/2022 9:47 AM Narrative 07/17/2022 9:48 AM CDT IMAGING STUDIES: ??XR KNEE LT MIN 4V ? DATE: ??07/17/2022 9:21 AM COMPARISON: ??No comparisons. CLINICAL HISTORY: ??left knee pain ?? . ??No history of trauma Procedure Note Rey Aranda MD - 07/17/2022 IMAGING STUDIES: XR KNEE LT MIN 4V DATE: 07/17/2022 9:21 AM COMPARISON: No comparisons. CLINICAL HISTORY: left knee pain . No history of trauma IMPRESSION: 1. There is no evidence of acute fracture, dislocation, or osseouserosion. Minor loss of medial joint space without osteophyte. 2. Lateral joint spaces well-maintained without osteophyte. Mild tibialspine spurring. 3. No radiopaque foreign bodies or abnormal soft tissue calcificationsnoted. 3. Patella is intact. Very minor patellar spur. Small suprapatellarjoint effusion. Ordered By: LUIS FERNANDO PARRA Interpreted By: Abigail Aranda, 07/17/2022 9:47 AM Luis Fernando Parra DO GENERAL IMAGING Final Result * XR KNEE RT MIN 4V (07/17/2022 9:42 AM CDT) Anatomical Region Laterality Modality Knee Radiographic Keshia ging 07/17/2022 9:49 AM CDT Impressions 07/17/2022 9:50 AM CDT IMPRESSION: 1. ??There is no evidence of acute fracture, dislocation, or osseous erosion. Minor loss of medial joint space without osteophyte. 2. ??Minor tibial spine spurring. Lateral joint space is well-maintained without osteophyte. 3. ??No radiopaque foreign bodies or abnormal soft tissue calcifications noted. 3. ??Patella is intact. ??Very minor patellar spur. No gross joint effusion. Ordered By: LUIS FERNANDO PARRA Interpreted By: Abigail Aranda, 07/17/2022 9:49 AM Narrative 07/17/2022 9:50 AM CDT IMAGING STUDIES: ??XR KNEE RT MIN 4V ? DATE: ??07/17/2022 9:21 AM COMPARISON: ??08/15/2012 CLINICAL HISTORY: ??right knee pain ?? . ??No history of trauma Procedure Note Rey Aranda MD - 07/17/2022 IMAGING STUDIES: XR KNEE RT MIN 4V DATE: 07/17/2022 9:21 AM COMPARISON: 08/15/2012 CLINICAL HISTORY: right knee pain . No history of trauma IMPRESSION: 1. There is no evidence of acute fracture, dislocation, or osseouserosion. Minor loss of medial joint space without osteophyte. 2. Minor tibial spine spurring. Lateral joint space is well-maintainedwithout osteophyte. 3. No radiopaque foreign bodies or abnormal soft tissue calcificationsnoted. 3. Patella is intact. Very minor patellar spur. No gross jointeffusion. Ordered By: LUIS FERNANDO PARRA Interpreted By: Abigail Aranda, 07/17/2022 9:49 AM us Luis Fernando Parra DO GENERAL IMAGING Final Result documented in this encounter Visit Diagnoses Diagnosis Chronic pain of both knees- Primary Chronic pain of both knees documented in this encounter Additional Health Concerns Assessment Noted Time PHQ-9 Depression Total Score: 0 12/29/19 21 3:46 PM CDT documented as of this encounter Care Teams Roof Fitter Relationship Specialty Start [place] [address] [place] [address] PCP - General FAMILY PRACTICE 02/27/18 documented as of this encounter
--- OUTSIDE RECORDS SUMMARY | 2024-04-27 18:24 | XMS_ITS | Encounter Summary ---
Author Organization [facility] Address [address] [place] [address]. 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 file Not on file documented as of this encounter Plan of Treatment Upcoming Encounters Date Type Department Care Team (Late st Contact Info) Description 06/09/2024 4:20 PM FLIGHT OPERATIONS MANAGER Office Visit [facility] Medical Group Family & Internal Medicine [address] [address] León Sanchez [place] [id number] [place] [address] documented as of this encounter Visit Diagnoses Not on filedocumented in this encounter Additional Health Concerns Assessment Noted Time PHQ-9 Depression Total Score: 0 12/29/19 21 3:46 PM CDT documented as of this encounter Care Teams Gasoline Pump Installer Relationship Specialty Start [place] [address] [place] [address] PCP - General FAMILY PRACTICE 02/27/18 documented as of this encounter
--- OUTSIDE RECORDS SUMMARY | 2024-04-27 18:24 | XMS_ITS | Encounter Summary ---
Author Organization [facility] Address [address] [place] [address]. [place] [address] [place] [address] Care Team Providers Care Sheet Rock Applier Name Role Phone Etienne Sanchez MD Primary Care Provider [phone] Reason for Referral * Imaging (Routine) - Closed Specialty Diagnoses / Procedures Referred By Hugo sharp Referred To Contact RADIOLOGY Diagnoses Chronic left shoulder pain Procedures MRI [place] [address] [place] [address] Phone: tel: fax: Referral ID Status Reason Start Date Expiration Date Visits Re quested Visits Authorized [id number] Closed 01/21/2021 02/20/2022 1 1 Encounter Details Date Type Department Care Team (Late st Contact Info) Description 01/21/2021 Orders Only [facility] Medical Group Family & Internal Medicine [address] [address] [place] [address] [place] [address] Social History Tobacco Use Types Packs/Day Years [...] Sexual Orientation Straight 03/28/2018 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 No / Unsure 01/20/2021 3:51 PM CDT documented as of this encounter Plan of Treatment Upcoming Encounters Date Type Department Care Team (Late st Contact Info) Description 06/09/2024 4:20 PM CRYSTALIZER Office Visit [facility] Medical Group Family & Internal Medicine [facility] [id number] [place] [address] Etienne Sanchez MD [address] [place] [address] documented as of this encounter Results * MRI SHOULDER LT WO CON (02/10/2021 3:09 PM CDT) Anatomical Region Laterality Modality Shoulder Magnetic Resonan ce 02/10/2021 3:20 PM CDT Impressions 02/10/2021 3:27 PM CDT IMPRESSION: 1. ??Partial bursal surface tear at the insertion of the infraspinatus portion of the rotator cuff tendon. Questionable full-thickness tear at the leading edge of the supraspinatus portion of the rotator cuff tendon insertion. No retraction or atrophy. 2. ??SLAP type I injury superior labrum. Referred By: ETIENNE SANCHEZ Interpreted By: Reynold Haro, 02/10/2021 3:20 PM Narrative 02/10/2021 3:27 PM CDT IMAGING STUDY: ??MRI SHOULDER LT WO CON ? ORDER DATE/TIME: 02/10/2021 2:16 PM CLINICAL HISTORY: ??Shoulder pain, rotator cuff disorder suspected, xray done ?. COMPARISON STUDIES: Radiographs of the left shoulder 01/20/2021. ?? Axial PD fat-sat, axial T2 fat sat, coronal T1, coronal T2, coronal T2 fat sat, coronal PD fat-sat and sagittal T2 fat saturated sequences were acquired through the ??Left shoulder. FINDINGS: No Hill-Sachs deformity or Bankart fragment. The biceps follows a normal trajectory along the bicipital groove. The subscapular tendon appears unremarkable. Subchondral cyst humeral head along the posterior edge of the greater tuberosity Ill-defined increased signal of the labrum suggestive of a SLAP type I injury. Sliver of fluid in the subacromial subdeltoid bursa. Fluidlike signal dissects across the insertion of the infraspinatus portion of the rotator cuff tendon extending to the bursal surface only. Abnormal fluid like signal at the leading edge of the insertion of the supraspinatus portion of the rotator cuff tendon appears to traverse the full thickness of the tendon. No retraction . No muscular atrophy. Procedure Note Reynold Haro MD - 02/10/2021 IMAGING STUDY: MRI SHOULDER LT WO CON ORDER DATE/TIME: 02/10/2021 2:16 PM CLINICAL HISTORY: Shoulder pain, rotator cuff disorder suspected, xraydone . COMPARISON STUDIES: Radiographs of the left shoulder 01/20/2021. Axial PD fat-sat, axial T2 fat sat, coronal T1, coronal T2, coronal T2 fatsat, coronal PD fat-sat and sagittal T2 fat saturated sequences wereacquired through the Left shoulder. FINDINGS: No Hill-Sachs deformity or Bankart fragment. The biceps follows a normal trajectory along the bicipital groove. The subscapular tendon appears unremarkable. Subchondral cyst humeral head along the posterior edge of the greatertuberosity Ill-defined increased signal of the labrum suggestive of a SLAP type Iinjury. Sliver of fluid in the subacromial subdeltoid bursa. Fluidlike signaldissects across the insertion of the infraspinatus portion of the rotatorcuff tendon extending to the bursal surface only. Abnormal fluid likesignal at the leading edge of the insertion of the supraspinatus portionof the rotator cuff tendon appears to traverse the full thickness of thetendon. No retraction . No muscular atrophy. IMPRESSION: 1. Partial bursal surface tear at the insertion of the infraspinatusportion of the rotator cuff tendon. Questionable full-thickness tear atthe leading edge of the supraspinatus portion of the rotator cuff tendoninsertion. No retraction or atrophy. 2. SLAP type I injury superior labrum. Referred By: ETIENNE SANCHEZ Interpreted By: Reynold Haro, 02/10/2021 3:20 PM us Etienne Sanchez MD MRI Final Resul t documented in this encounter Visit Diagnoses Diagnosis Chronic left shoulder pain- Primary Pain in joint, shoulder region Chronic left shoulder pain Pain in joint, shoulder region documented in this encounter Additional Health Concerns Assessment Noted Time PHQ-9 Depression Total Score: 0 12/29/19 21 3:46 PM CDT documented as of this encounter Care Teams Sheet Rock Applier Relationship Specialty [place] [address] [place] [address] PCP - General FAMILY PRACTICE 02/27/18 documented as of this encounter
--- OUTSIDE RECORDS SUMMARY | 2024-04-27 18:24 | XMS_ITS | Encounter Summary ---
Author Organization [facility] Address [address] [place] [address]. [place] [address] [place] [address] Care Team Providers Care Car Sales Representative Name Role Phone León Sanchez MD Primary Care Provider [phone] Reason for Referral * Consultation/Treatment (Routine) - Closed Specialty Diagnoses / Procedures Referred By Hugo sharp Referred To Contact ORTHOPAEDICS Diagnoses [place] [address] [place] [address] Phone: tel: fax: Jennifer Mercedes NP-C Referral ID Status Reason Start Date Expiration Date V isits Requested Visits Authorized [id number] Closed Specialty Services 10/05/2020 11/06/2021 100 100 Reason for Visit * Reason Onset Date Comments Referral 10/05/2020 Encounter Details Date Type Department Care Team (Late st Contact Info) Description 10/05/2020 Telephone [facility] Medical Group Family & Internal Medicine [facility] [address] [place] [address] [place] [address] [place] [address] Referral Social History Tobacco Use Types Packs/Day Years [...] Sexual Orientation Straight 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 No / Unsure 10/01/2020 2:10 PM CDT documented as of this encounter Progress Notes * Nishi Topete RN - 10/05/2020 9:[address] Sanchez, can refer pt to Dr De Leon for knee replacements. Called and informed pt's Pamof this. Referral placed. * Sandra Vazquez LPN - 10/05/2020 8:35 AM CDT Pt rodolfo checking on referral for knee that was discussed last OV At [facility] [phone] documented in this encounter Plan of Treatment Upcoming Encounters Date Type Department Care Team (Late st Contact Info) Description 06/09/2024 4:20 PM PROCESSING LEAD Office Visit [facility] Medical Group Family & Internal Medicine [facility] [address] [place] [address] [place] [address] [place] [address] Scheduled Referrals Name Type Priority Associated Diagnoses Orde r Schedule Ambulatory referral to Orthopedics ([facility]) Referral Routine Bilateral knee pain Ordered: 10/05/2020 documented as of this encounter Visit Diagnoses Diagnosis Bilateral knee pain- Primary Pain in joint, lower leg documented in this encounter Additional Health Concerns Assessment Noted Time PHQ-9 Depression Total Score: 0 09/18/19 21 8:43 AM CDT documented as of this encounter Care Teams Car Sales Representative Relationship Specialty Start [place] [address] [place] [address] PCP - General FAMILY PRACTICE 02/27/18 documented as of this encounter
--- OUTSIDE RECORDS SUMMARY | 2024-04-27 18:24 | XMS_ITS | Encounter Summary ---
Author Organization [facility] Address [address] [place] [address]. [place], [place] [address] [place] [address] Care Team Providers Care Rotary Shear Worker Helper Name Role Phone Etienne Sanchez MD Primary Care Provider [phone] Reason for Referral * Imaging (Routine) - Closed Specialty Diagnoses / Procedures Referred By Contac t Referred To Contact RADIOLOGY Diagnoses Chronic left shoulder pain Procedures MRI [place] [address] [facility] [place] [address] Phone: tel: fax: Referral ID Status Reason Start Date Expiration Date Visits Re quested Visits Authorized [id number] Closed 01/21/2021 02/20/2022 1 1 Reason for Visit * Imaging (Routine) - Closed Specialty Diagnoses / Procedures Referred By Hugo sharp Referred To Contact RADIOLOGY Diagnoses Chronic left shoulder pain Procedures MRI [place] [address] [place] [address] Phone: tel: fax: Referral ID Status Reason Start Date Expiration Date Visits Re quested Visits Authorized [id number] Closed 01/21/2021 02/20/2022 1 1 Encounter Details Date Type Department Care Team (Latest Contact Info) Description 02/10/2021 2:02 PM CDT - 02/10/2021 11:59 PM CDT Hospital Encounter [facility] MRI [address] [place], [place] [id number] [place] [address] [place] [address] Discharge Disposition: Home or Self Care (Routine [...] Sexual Orientation Straight 03/28/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 No / Unsure 02/10/2021 1:58 PM CDT documented as of this encounter Medications at Time of Discharge aspirin EC 81 MG tablet Take 1 tablet (81 mg total) by mouth daily. AMLODIPINE 5 MG tabletIndications :Hypertension, unspecified type Take 1 tablet by mouth once daily 90 tablet 12/01/2020 1 diclofenac sodium 1 % gel Apply 2 g topically 4 (four) times daily. 08/30/2019 2 METFORMIN 500 MG tabletIndications :Type 2 diabetes mellitus without complication, with long-term current use of insulin ([facility]/HCC) TAKE 2 TABLETS BY MOUTH TWICE DAILY WITH MEALS 360 tablet 12/01/2020 1 documented as of this encounter Progress Notes * Etienne Sanchez MD - 02/10/2021 2:30 PM CDT SLAP 1 labrum tear and possible full thickness rotator cuff tear * Nishi Topete RN - 02/10/2021 2:30 PM CDT Called pt and informed him of MRI results. He v/u. Referral placed for Dr Parra. documented in this encounter Plan of Treatment Upcoming Encounters Date Type Department Care Team (Late st Contact Info) Description 06/09/2024 4:20 PM CEREAL MAKER Office Visit [facility] Medical Group Family & Internal Medicine [facility] [address] [place] [address] Etienne Sanchez MD [address] [place] [address] documented as of this encounter Procedures Procedure Name Priority Date/Time Associated Diagnosis Comments MRI SHOULDER LT WO CON Routine 02/10/2021 3:09 PM CDT Chronic left shoulder pain documented in this encounter Results * MRI SHOULDER LT [...] encounter Visit Diagnoses Diagnosis Chronic left shoulder pain Pain in joint, shoulder region documented in this encounter Additional Health Concerns Assessment Noted Time PHQ-9 Depression Total Score: 0 12/29/19 21 3:46 PM CDT documented as of this encounter Care Teams Rotary Shear Worker Helper Relationship Specialty Start [place] [address] [place] [address] PCP - General FAMILY PRACTICE 02/27/18 documented as of this encounter
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
--- OUTSIDE RECORDS SUMMARY | 2024-04-27 18:24 | XMS_ITS | Encounter Summary ---
Author Organization [facility] Address [address] [place] [address]. 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 Not on file Not [...] st Contact Info) Description 06/09/2024 4:20 PM CIVIL ENGINEER'S AIDE Office Visit [facility] Family & Internal Medicine [facility] [address] [place] [address] [place] [address] [place] [address] documented as of this encounter Visit Diagnoses Not on filedocumented in this encounter Additional Health Concerns Assessment Noted Time PHQ-9 Depression Total Score: 0 12/29/19 21 3:46 PM CDT documented as of this encounter Care Teams Exchange Trouble Shooter Relationship Specialty Start [place] [address] [place] [address] PCP - General FAMILY PRACTICE 02/27/18 documented as of this encounter
--- OUTSIDE RECORDS SUMMARY | 2024-04-27 18:24 | XMS_ITS | Encounter Summary ---
Author Organization [facility] Address [address] [place] [address]. 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 No / Unsure 05/30/2021 3:34 PM LEAD SIMULATION MODELING ENGINEER documented as of this encounter Plan of Treatment Upcoming Encounters Date Type Department Care Team (Late st Contact Info) Description 06/09/2024 4:20 PM LEAD SIMULATION MODELING ENGINEER Office Visit [facility] Family & Internal Medicine [facility] [address] [place] [address] [place] [address] [place] [address] documented as of this encounter Visit Diagnoses Not on filedocumented in this encounter Additional Health Concerns Assessment Noted Time PHQ-9 Depression Total Score: 0 12/29/19 21 3:46 PM CDT documented as of this encounter Care Teams Power Transmission Engineer Relationship Specialty Start [place] [address] [place] [address] PCP - General FAMILY PRACTICE 02/27/18 documented as of this encounter
--- OUTSIDE RECORDS SUMMARY | 2024-04-27 18:24 | XMS_ITS | Encounter Summary ---
Author Organization [facility] Address [address] [place] [address]. 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 No / Unsure 07/17/2022 8:57 AM CDT documented as of this encounter Plan of Treatment Upcoming Encounters Date Type Department Care Team (Late st Contact Info) Description 06/09/2024 4:20 PM TITLE CLOSER Office Visit [facility] Family & Internal Medicine [facility] [address] [place] [address] [place] [address] [place] [address] documented as of this encounter Visit Diagnoses Not on filedocumented in this encounter Additional Health Concerns Assessment Noted Time PHQ-9 Depression Total Score: 0 12/29/19 21 3:46 PM CDT documented as of this encounter Care Teams Client Engagement Manager Relationship Specialty Start [place] [address] [place] [address] PCP - General FAMILY PRACTICE 02/27/18 documented as of this encounter
--- OUTSIDE RECORDS SUMMARY | 2024-04-27 18:24 | XMS_ITS | Encounter Summary ---
Author Organization [facility] Address [address] [place] [address]. [place] [address] [place] [address] Care Team Providers Care Foundry Finisher Name Role Phone León Sanchez MD Primary Care Provider [phone] Reason for Referral * Imaging (Routine) - Closed Specialty Diagnoses / Procedures Referred By Hugo sharp Referred To Contact RADIOLOGY Diagnoses Primary osteoarthritis of right knee Primary osteoarthritis of left knee Procedures OUS GUIDE NEEDLE PLCMT ORTHO Jennifer Mercedes NP-C Referral ID Status Reason Start Date Expiration Date Visits Re quested Visits Authorized [id number] Closed 12/28/2020 01/28/2022 1 1 Reason for Visit * Reason Comments Follow Up bilateral knee Eufle xxa #2 Encounter Details Date Type Department Care Team (Late st Contact Info) Description 12/28/2020 3:20 PM CDT Office Visit [facility] Multispecialty Care - [address], [address] [place] [phone] Jennifer Mercedes NP-C Follow Up (bilateral knee Euflexxa #2) Social History Tobacco Use Types Packs/Day Years [...] Sexual Orientation Straight 03/28/2018 4: 44 PM SOCIAL MEDIA DEVELOPER 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 No / Unsure 12/28/2020 2:55 PM CDT documented as of this encounter Last Filed Vital Signs Vital Sign Reading Time Taken Comments Blood Pressure 130/70 12/28/2020 3:45 PM CDT Pulse 72 12/28/2020 3:45 PM CDT Temperature - - Respiratory Rate - - Oxygen Saturation - - Inhaled Oxygen Concentration - - Weight 67.1 kg (148 lb) 12/28/2020 3:45 PM CDT Height 175.3 cm (5' 9 ) 12/28/2020 3:45 PM CDT Body Mass Index 21.86 12/28/2020 3:45 PM CDT documented in this encounter Progress Notes * ALINA Brown - 12/28/2020 3:20 PM CDTSummary: BILATERAL KNEE EUFLEXXA #2 DX: OA PROCEDURE: Skin was prepped with Chloraprep swab. I injected BILATERAL knee with 2 cc Eulfexxa with 22g needle. Ultrasound imaging was utilized for needle guidance. This was done with sterile technique. The patient tolerated it well. SUZANNE GRIFFIN, assisted with procedure. Patient has been counseled [...] st Contact Info) Description 06/09/2024 4:20 PM SOCIAL MEDIA DEVELOPER Office Visit [facility] Family & Internal Medicine [facility] [address] [place] [address] [place] [address] [place] [address] documented as of this encounter Results * OUS GUIDE NEEDLE PLCMT ORTHO (12/28/2020 3:17 PM CDT) Anatomical Region Laterality Modality Ultrasound 12/28/2020 3:38 PM CDT Narrative 12/28/2020 3:38 PM CDT This report does not contain a radiologist's interpretation. Please review associated procedure and/or operative report. Procedure Note Kareen Herrera MD - 12/28/2020 This report does not contain a radiologist's interpretation. Please review associated procedure and/or operative report. us Jennifer Mercedes LEATHER FINISHER-C ULTRASOUND Final Re sult documented in this encounter Visit Diagnoses Diagnosis Primary osteoarthritis of right knee- Primary Primary localized osteoarthrosis, lower leg Primary osteoarthritis of left knee Primary localized osteoarthrosis, lower leg documented in this encounter Administered Medications Inactive Administered Medications - up to 3 most recent administrations Medication Order MAR Action Action Date Dose Rate Site hyaluronate sodium (EUFLEXXA) injection 20 mg 20 mg (2 mL), Intra-articular, Once, 1 dose, On Sun12/28/20 at 1600, RightIndications:Primary osteoarthritis of right knee Given 12/28/2020 3:57 PM CDT 20 mg Right Knee hyaluronate sodium (EUFLEXXA) injection 20 mg 20 mg (2 mL), Intra-articular, Once, 1 dose, On Sun12/28/20 at 1600, LeftIndications:Primary osteoarthritis of left knee Given 12/28/2020 3:56 PM CDT 20 mg Left Knee documented in this encounter Additional Health Concerns Assessment Noted Time PHQ-9 Depression Total Score: 0 09/14/20 21 3:46 PM CDT documented as of this encounter Care Teams Foundry Finisher Relationship Specialty Start Date End Date [place]ón [place] [address] [place] [address] PCP - General FAMILY PRACTICE 02/27/18 documented as of this encounter
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
--- OUTSIDE RECORDS SUMMARY | 2024-04-27 18:24 | XMS_ITS | Encounter Summary ---
Author Organization [facility] Address [address] [place] [address]. [place] [address] [place] [address] Care Team Providers Care Social Work Administrator Name Role Phone Etienne Sanchez MD Primary Care Provider [phone] Reason for Visit * Reason Comments Follow Up Medication Management Med refills Diabetes Encounter Details Date Type Department Care Team (Late st Contact Info) Description 03/10/2022 4:40 PM FRUIT EXPRESS AGENT Office Visit [facility] Family & Internal Medicine [facility] [id number] [place] [phone] Et[place] [id number] [place] [address] Follow Up; Medication Management (Med refills); Diabetes Social History Tobacco Use Types Packs/Day [...] Sexual Orientation Straight 03/28/2018 4: 44 PM FRUIT EXPRESS AGENT 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 No / Unsure 03/10/2022 4:08 PM FRUIT EXPRESS AGENT documented as of this encounter Last Filed Vital Signs Vital Sign Reading Time Taken Comments Blood Pressure 89/56 03/10/2022 4:19 PM FRUIT EXPRESS AGENT Pulse 113 03/10/2022 4:11 PM FRUIT EXPRESS AGENT Temperature 36.3 ??C (97.4 ??F) 03/10/2022 4:11 PM CS T Respiratory Rate 18 03/10/2022 4:11 PM FRUIT EXPRESS AGENT Oxygen Saturation 98% 03/10/2022 4:11 PM FRUIT EXPRESS AGENT Inhaled Oxygen Concentration - - Weight 66.7 kg (147 lb) 03/10/2022 4:11 PM FRUIT EXPRESS AGENT Height 175.3 cm (5' 9 ) 03/10/2022 4:11 PM FRUIT EXPRESS AGENT Body Mass Index 21.71 03/10/2022 4:11 PM FRUIT EXPRESS AGENT documented in this encounter Patient Instructions * Patient Instructions* Etienne Sanchez MD - 03/10/2022 4:40 PM FRUIT EXPRESS AGENT 1) DM: uncontrolled admits to not taking medications every day and have suggested lantus but has declined will start re taking his meds and adhering to his diet and will follow his hgba1-c 2) HTN: uncontrolled and will increase norvasc to 10 mg a day and follow his renal,electrolytes andlipids and is up to date with his vision exam 3) HDL: elevated triglycerides on last lab and will check another today and recommend at least a statin 4) Chronic knee pain: unable to inject today due to elevated hgba1-c recommend continuing voltarn gel and consider stationary bike T EXPRESS AGENT T EXPRESS AGENT T EXPRESS AGENT T EXPRESS AGENT T EXPRESS AGENT T EXPRESS AGENT documented in this encounter Progress Notes * Etienne Sanchez MD - 03/10/2022 4:40 PM CST Images from the original note were not included. Office Progress Note Reason for Visit: Follow Up, Medication Management (Med refills), and Diabetes History of Present Illness: Follow Up Associated [...] (NORVASC) 10 MG tablet, Take 1 tablet (10 mg total) by mouth daily., Disp: 30 tablet, Rfl: 3 ??? aspirin EC 81 MG tablet, Take 81 mg by mouth daily., Disp: , Rfl: ??? metFORMIN (GLUCOPHAGE) 500 MG tablet, TAKE 2 TABLETS BY MOUTH TWICE DAILY WITH MEALS, Disp: 120tablet, Rfl: 0 Allergies: Allergies Allergen Reactions ??? Codeine [...] High school graduate Occupational History ??? 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 Smoking status: Never ??? Smokeless tobacco: Former Types: Snuff Quit date: 03/2017 Vaping Use ??? Vaping Use: Never used [...] time. Psychiatric: Behavior: Behavior normal. Filed Vitals: 03/10/22 1611 03/10/22 1619 BP: (!) 170/130 89/56 Pulse: 113 Resp: 18 Temp: 97.4 ??F (36.3 ??C) TempSrc: Temporal SpO2: 98% Weight: 66.7 kg (147 lb) Height: 5' 9 (1.753 m) Procedures Diagnoses/Impression: 1. Type 2 diabetes mellitus without complication, with long-term current use of insulin ([facility]) A1C (BACK OFFICE) 2. Hypertension, unspecified type amLODIPine (NORVASC) 10 MG tablet COMPREHENSIVE METABOLIC PANEL 3. Dyslipidemia LIPID PANEL Recommendations and Plan: Please see patient instructions for plan and recommendatiosn PCP: ETIENNE SANCHEZ MD 03/11/2022 T EXPRESS AGENT * Etienne Sanchez MD - 03/10/2022 4:40 PM CST Pt is aware of these results and plan T EXPRESS AGENT documented in this encounter Plan of Treatment Upcoming Encounters Date Type Department Care Team (Late st Contact Info) Description 06/09/2024 4:20 PM FRUIT EXPRESS AGENT Office Visit [facility] Family & Internal Medicine [facility] [address] [place] [address] [place] [address] [place] [address] Scheduled Orders Name Type Priority Associated Diagnoses Orde r Schedule COMPREHENSIVE METABOLIC PANEL Lab Routine Hypertension, unspecified type Expected: 03/11/2022, Expires: 04/10/2022 LIPID PANEL Lab Routine Dyslipidemia Expected: 03/11/2022, Expires: 04/10/2022 documented as of this encounter Procedures Procedure Name Priority Date/Time Associated Diagnosis Comments HEMOGLOBIN, GLYCOSYLATED Routine 03/10/2022 Type 2 diabetes mellitus without complication, with long-term current use of insulin ([facility]) documented in this encounter Results * A1C (BACK OFFICE) (03/10/2022) HGB A1C 11.4 % -98356 T [facility] 03/10/2022 us Etienne Sanchez MD LABORATORY Final Resul t [id number] [facility] [address] [place] [address], documented in this encounter Visit Diagnoses Diagnosis Type 2 diabetes mellitus without complication, with long-term current use of insulin ([facility])- Primary Hypertension, unspecified type Dyslipidemia Other and unspecified hyperlipidemia documented in this encounter Additional Health Concerns Assessment Noted Time PHQ-9 Depression Total Score: 0 12/29/19 21 3:46 PM CDT documented as of this encounter Care Teams Social Work Administrator Relationship Specialty [place] [address] [place] [address] PCP - General FAMILY PRACTICE 02/27/18 documented as of this encounter
--- OUTSIDE RECORDS SUMMARY | 2024-04-27 18:24 | XMS_ITS | Encounter Summary ---
Author Organization [facility] Address [address] [place] [address]. [place] [address] [place] [address] Care Team Providers Care Associate Dean Of Students Name Role Phone León Sanchez MD Primary Care Provider [phone] Reason for Visit * Reason Comments Knee Pain Bilateral Knee Pain Encounter Details Date Type Department Care Team (Late st Contact Info) Description 11/20/2022 4:00 PM CDT Office Visit [facility] [address] [facility] [address] [place] [address] [place] [address] [place] [address] Knee Pain (Bilateral Knee Pain) Social History Tobacco Use Types Packs/Day Years Used Date Smoking Tobacco: Never Smokeless Tobacco: Former Snuff Quit: 03/2017 Tobacco Cessation:Counseling Given: Not Answered Comments:na Alcohol Use Standard Drinks/Week Comments No [...] Sexual Orientation Straight 03/28/2018 4: 44 PM 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 Not on file Not on file documented as of this encounter Last Filed Vital Signs Vital Sign Reading Time Taken Comments Blood Pressure 196/116 11/20/2022 3:40 PM CDT d/t throat cancer surgery Pulse 84 11/20/2022 3:40 PM CDT Temperature 36.4 ??C (97.5 ??F) 11/20/2022 3 :40 PM CDT Respiratory Rate 16 11/20/2022 3:40 PM CDT Oxygen Saturation 99% 11/20/2022 3:4 0 PM CDT Inhaled Oxygen Concentration - - Weight 66.6 kg (146 lb 12.8 oz) 11/20/2022 3:40 PM CDT Height 175.3 cm (5' 9 ) 11/20/2022 3:40 PM CDT Body Mass Index 21.68 11/20/2022 3:40 PM CDT documented in this encounter Progress Notes * Naina Islas - 11/21/2022 1:53 PM CDTAssociated Problem(s): Bilateral primary osteoarthritis of knee We went over the risks, benefits, and alternatives today. The patient would like to proceed with bilateral injections. We will plan for an MRI in a few weeks, once the steroid injections has time to settle, and plan for a total knee arthroplasty at that time. * Luis Fernando Parra DO - 11/20/2022 4:00 PM CDT Images from the original note were not included. Office Visit Reason for Visit: Knee Pain (Bilateral Knee Pain) History of Present Illness: Sonny Singleton is a 62-year-old male who presents for a clinical evaluation of his bilateral knees. He is accompanied by his today. Patient reports pain into the knees. He would like to discuss repeat injections and eventual bilateral knee replacement. His last injection was performed on 08/14/2022. He reports a sensation into the knees that something is tearing within the knee. Review of Systems: Constitutional: Negative for chills [...] Outpatient Medications Marked as Taking for the 11/20/22 encounter (Office Visit) with Luis Fernando Parra, Medication Sig Dispense Refill amLODIPine (NORVASC) 10 MG tablet Take 1 tablet by mouth once daily 90 tablet 1 aspirin EC 81 MG tablet Take 1 tablet (81 mg total) by mouth daily. meloxicam (MOBIC) 15 MG tablet Take 1 tablet (15 mg total) by mouth daily. 30 tablet 2 metFORMIN (GLUCOPHAGE) 500 MG tablet TAKE 2 TABLETS BY MOUTH TWICE DAILY WITH MEALS 360 tablet 1 Review of patient's allergies indicates: Allergen Reactions Codeine Shortness of Breath States it is had for him to breath Latex Rash Lisinopril Cough Past Medical History: Diagnosis Date Arthritis Cancer (HHS/HCC) ([facility]) 03/2017 throat COVID-19 12/01/2020 Diabetes mellitus (HHS/HCC) ([facility]) Past Surgical History: Procedure Laterality Date [...] Mother Diabetes Father Vital Signs: Filed Vitals: 11/20/22 1540 BP: (!) 196/116 Pulse: 84 Resp: 16 Temp: 97.5 ??F (36.4 ??C) TempSrc: Core SpO2: 99% Weight: 66.6 kg (146 lb 12.8 oz) Height: 5' 9 (1.753 m) Estimated BMI Today: Estimated body mass index is 21.68 kg/m?? as calculated from the following: Height as of this encounter: 5' 9 (1.753 m). Weight as of this encounter: 66.6 kg (146 lb 12.8 oz). Physical Exam: Constitutional: he is oriented [...] Nursing note and vitals reviewed. Ortho Exam: Neurovascularly intact. He has some more abrasions on the right knee than the left knee. Assessment/Plan: Problem List Items Addressed This Visit Other Bilateral primary osteoarthritis of knee We went over the risks, benefits, and alternatives today. The patient would like to proceed with bilateral injections. We will plan for an MRI in a few weeks, once the steroid injections has time to settle, and plan for a total knee arthroplasty at that time. Relevant Orders DRAIN/INJECT LARGE JOINT/BURSA Procedure: We discussed the risks, benefits and alternatives. All questions were answered and informed consentis obtained. The right knee is prepped with alcohol and Betadine. Under sterile technique an 18-gauge needle was inserted to the medial patellofemoral joint and [1] milliliters of synovial fluid is aspirated.Kenalog 80mg/2ml and 4ml Bupivacaine 0.25% is instilled. The patient tolerated the procedure well without adverse effects. Area is cleansed and a Band-Aid is placed. We discussed the risks, benefits and alternatives. All questions were answered and informed consentis obtained. The left knee is prepped with alcohol and Betadine. Under sterile technique an 18-gauge needle was inserted to the medial patellofemoral joint and [1] milliliters of synovial fluid is aspirated.Kenalog 80mg/2ml and 4ml Bupivacaine 0.25% is instilled. The patient tolerated the procedurewell without adverse effects. Area is cleansed and a Band-Aid is placed. By signing below, Naina Lopez, attest that this documentation has been prepared in the presence of and under the direction of Dr. Luis Fernando Parra DO. I, Luis Fernando Parra DO personally performed the services described in this documentation. All medical record entries and diagnoses made by the scribe were at my direction and in my presence. I have reviewed the chart and agree that the record reflects my personal performance and is accurate and complete. Portions of this note were dictated using [employer] speech recognition software. Occasional wrong wordor sound-alike substitutions may have occurred due to the inherent limitations of voice recognition software. Please read the chart carefully and recognize, using context, where the substitutions may have occurred. documented in this encounter Plan of Treatment Upcoming Encounters Date Type Department Care Team (Late st Contact Info) Description 06/09/2024 4:20 PM CESSPOOL CLEANER Office Visit [facility] Family & Internal Medicine [address] [address] León Sanchez MD [address] [place] [address] Scheduled Orders Name Type Priority Associated Diagnoses Orde r Schedule DRAIN/INJECT LARGE JOINT/BURSA Procedures Routine Bilateral primary osteoarthritis of knee Ordered: 11/20/2022 documented as of this encounter Visit Diagnoses Diagnosis Bilateral primary osteoarthritis of knee documented in this encounter Administered Medications Inactive Administered Medications - up to 3 most recent administrations Medication Order MAR Action Action Date Dose Rate Site bupivacaine (PF) (MARCAINE) 0.75 % injection 4 mL 4 mL, Other, Once, 1 dose, On Sun11/20/22 at 1615Indications:Bilateral primary osteoarthritis of knee Given 11/20/2022 4:07 PM CDT 4 mLs Right Knee bupivacaine (PF) (MARCAINE) 0.75 % injection 4 mL 4 mL, Other, Once, 1 dose, On Sun11/20/22 at 1615Indications:Bilateral primary osteoarthritis of knee Given 11/20/2022 4:06 PM CDT 4 mLs Left Knee triamcinolone acetonide (KENALOG-40) injection 80 mg 80 mg, Intra-articular, Once, 1 dose, On Sun11/20/22 at 1615, Augustin WellIndications:Bilateral primary osteoarthritis of knee Given 11/20/2022 4:08 PM CDT 80 mg Right Knee triamcinolone acetonide (KENALOG-40) injection 80 mg 80 mg, Intra-articular, Once, 1 dose, On Sun11/20/22 at 1615, Augustin WellIndications:Bilateral primary osteoarthritis of knee Given 11/20/2022 4:07 PM CDT 80 mg Left Knee documented in this encounter Additional Health Concerns Assessment Noted Time PHQ-9 Depression Total Score: 0 12/29/19 21 3:46 PM CDT documented as of this encounter Care Teams Associate Dean Of Students Relationship Specialty Start [place] [address] [place] [address] PCP - General FAMILY PRACTICE 02/27/18 documented as of this encounter
--- OUTSIDE RECORDS SUMMARY | 2024-04-27 18:24 | XMS_ITS | Encounter Summary ---
Author Organization [facility] Address [address] [place] [address]. 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 No / Unsure 03/29/2021 8:32 AM RESEARCH PROFESSOR OF BIOSTATISTICS documented as of this encounter Plan of Treatment Upcoming Encounters Date Type Department Care Team (Late st Contact Info) Description 06/09/2024 4:20 PM RESEARCH PROFESSOR OF BIOSTATISTICS Office Visit [facility] Family & Internal Medicine [address] [place] [address] [place] [address] [place] [address] documented as of this encounter Visit Diagnoses Not on filedocumented in this encounter Additional Health Concerns Assessment Noted Time PHQ-9 Depression Total Score: 0 12/29/19 21 3:46 PM CDT documented as of this encounter Care Teams Insecticide Expert Relationship Specialty Start [place] [address] [place] [address] PCP - General FAMILY PRACTICE 02/27/18 documented as of this encounter
--- OUTSIDE RECORDS SUMMARY | 2024-04-27 18:24 | XMS_ITS | Encounter Summary ---
Author Organization [facility] Address [address] [place] [address]. 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 [id number] [place] [phone] León Sanchez [place] [id number] [place] [address] documented as of this encounter Visit Diagnoses Not on filedocumented in this encounter Additional Health Concerns Assessment Noted Time PHQ-9 Depression Total Score: 0 12/29/19 21 3:46 PM CDT documented as of this encounter Care Teams Deaf Teacher Relationship Specialty Start [place] [address] [place] [address] PCP - General FAMILY PRACTICE 02/27/18 documented as of this encounter
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
--- OUTSIDE RECORDS SUMMARY | 2024-04-27 18:24 | XMS_ITS | Encounter Summary ---
Author Organization [facility] Address [address] [place] [address]. [place] [address] [place] [address] Care Team Providers Care Customer Relations Assistant Name Role Phone Etienne Sanchez MD Primary Care Provider [phone] Reason for Visit * Reason Onset Date Comments Orders 01/19/2021 X-Ray of Lt. Yanira ulder Encounter Details Date Type Department Care Team (Late st Contact Info) Description 01/19/2021 Telephone [facility] Family & Internal Medicine [facility] [address] [place] [address] [place] [address] [place] [address] Orders (X-Ray of Lt. 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 No / Unsure 01/13/2021 3:21 PM CDT documented as of this encounter Progress Notes * Nishi Topete RN - 01/20/2021 9:[address] Sanchez, cruzito to order xray of left shoulder. Called pt and informed him of this. He v/u. Order placed. * Nishi Topete RN - 01/19/2021 4:40 PM CDT Printed for Dr Sanchez to advise. * Amrita Dewitt - 01/19/2021 4:06 PM CDT Patient called and stated that he was seen on 01/13/2021 and he states that he was supposed to haveand X-Ray or U/S of his Lt. Shoulder, and he has not heard from anyone regarding this matter. Would like to know where this stands as he would like to have something done. Thanks documented in this encounter Plan of Treatment Upcoming Encounters Date Type Department Care Team (Late st Contact Info) Description 06/09/2024 4:20 PM KNOT BUMPER Office Visit [facility] Family & Internal Medicine - [place] [address] [place] [address] [place] [address] [place] [address] documented as of this encounter Results * XR SHOULDER LT 4V (01/20/2021 4:15 PM CDT) Anatomical Region Laterality Modality Shoulder Radiographic Keshia ging 01/20/2021 4:39 PM CDT Impressions 01/20/2021 4:57 PM CDT FINDINGS AND IMPRESSION: 1. ??No definitive evidence of acute fracture or dislocation. No destructive or lytic lesions. No radiopaque foreign bodies or abnormal soft tissue calcifications noted. 2. ??Sclerosis along the inferior margin of the scapula, correlate with history of prior trauma. 3. ??Postsurgical changes left side of the neck Referred By: ETIENNE SANCHEZ Interpreted By: Reynold Haro, 01/20/2021 4:39 PM Narrative 01/20/2021 4:57 PM CDT IMAGING STUDIES: ??XR SHOULDER LT 4V ? DATE: ??01/20/2021 4:00 PM CLINICAL HISTORY: ??left shoulder pain ?? . . COMPARISON STUDIES: No previous available. ?? Procedure Note Reynold Haro MD - 01/20/2021 IMAGING STUDIES: XR SHOULDER LT 4V DATE: 01/20/2021 4:00 PM CLINICAL HISTORY: left shoulder pain . . COMPARISON STUDIES: No previous available. FINDINGS AND IMPRESSION: 1. No definitive evidence of acute fracture or dislocation. Nodestructive or lytic lesions. No radiopaque foreign bodies or abnormalsoft tissue calcifications noted. 2. Sclerosis along the inferior margin of the scapula, correlate withhistory of prior trauma. 3. Postsurgical changes left side of the neck Referred By: ETIENNE SANCHEZ Interpreted By: Reynold Haro, 01/20/2021 4:39 PM us Etienne Sanchez MD GENERAL IMAGING Final Resul t documented in this encounter Visit Diagnoses Diagnosis Left shoulder pain- Primary Pain in joint, shoulder region Left shoulder pain Pain in joint, shoulder region documented in this encounter Additional Health Concerns Assessment Noted Time PHQ-9 Depression Total Score: 0 12/29/19 21 3:46 PM CDT documented as of this encounter Care Teams Customer Relations Assistant Relationship Specialty [place] [address] [place] [address] PCP - General FAMILY PRACTICE 02/27/18 documented as of this encounter
--- OUTSIDE RECORDS SUMMARY | 2024-04-27 18:24 | XMS_ITS | Encounter Summary ---
Author Organization [facility] Address [address] [place] [address]. 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 file [...] st Contact Info) Description 06/09/2024 4:20 PM STRUCTURAL STEEL SHOP SUPERVISOR Office Visit [facility] Family & Internal Medicine [facility] [address] [place] [address] [place] [address] [place] [address] documented as of this encounter Results * XR KNEE LT 3V (10/20/2020 2:08 PM CDT) Anatomical Region Laterality Modality Knee Radiographic Kehsia ging 10/20/2020 2:10 PM CDT Impressions 10/20/2020 2:11 PM CDT IMPRESSION: No acute findings Referred By: ZULMA MERCEDES Interpreted By: Jorge Baldwin MD, 10/20/2020 2:10 PM Narrative 10/20/2020 2:11 PM CDT 3 VIEWS OF THE RIGHT KNEE AND 3 VIEWS OF LEFT KNEE Clinical History: Bilateral pain Comparison: None 3 views of the right knee and 3 views of the left knee demonstrate the bony elements to be intact. There is no evidence of fracture or dislocation. No effusion is seen. The surrounding soft tissues appear normal Procedure Note Jorge Baldwin MD - 10/20/2020 3 VIEWS OF THE RIGHT KNEE AND 3 VIEWS OF LEFT KNEE Clinical History: Bilateral pain Comparison: None 3 views of the right knee and 3 views of the left knee demonstrate thebony elements to be intact. There is no evidence of fracture ordislocation. No effusion is seen. The surrounding soft tissues appearnormal IMPRESSION: No acute findings Referred By: ZULMA MERCEDES Interpreted By: Jorge Baldwin MD, 10/20/2020 2:10 PM us Zulma Mercedes ADMINISTRATIVE OFFICE ASSISTANT-C GENERAL IMAGING Final Re sult * XR KNEE RT 3V (10/20/2020 2:08 PM CDT) Anatomical Region Laterality Modality Knee Radiographic Keshia ging 10/20/2020 2:10 PM CDT Impressions 10/20/2020 2:11 PM CDT IMPRESSION: No acute findings Referred By: ZULMA MERCEDES Interpreted By: Jorge Baldwin MD, 10/20/2020 2:10 PM Narrative 10/20/2020 2:11 PM CDT 3 VIEWS OF THE RIGHT KNEE AND 3 VIEWS OF LEFT KNEE Clinical History: Bilateral pain Comparison: None 3 views of the right knee and 3 views of the left knee demonstrate the bony elements to be intact. There is no evidence of fracture or dislocation. No effusion is seen. The surrounding soft tissues appear normal Procedure Note Jorge Baldwin MD - 10/20/2020 3 VIEWS OF THE RIGHT KNEE AND 3 VIEWS OF LEFT KNEE Clinical History: Bilateral pain Comparison: None 3 views of the right knee and 3 views of the left knee demonstrate thebony elements to be intact. There is no evidence of fracture ordislocation. No effusion is seen. The surrounding soft tissues appearnormal IMPRESSION: No acute findings Referred By: ZULMA MERCEDES Interpreted By: Jorge Baldwin MD, 10/20/2020 2:10 PM us Zulma Mercedes ADMINISTRATIVE OFFICE ASSISTANT-C GENERAL IMAGING Final Re sult documented in this encounter Visit Diagnoses Diagnosis Right knee pain- Primary Pain in joint, lower leg Left knee pain Pain in joint, lower leg documented in this encounter Additional Health Concerns Assessment Noted Time PHQ-9 Depression Total Score: 0 09/18/19 21 8:43 AM CDT documented as of this encounter Care Teams Financial Data Analyst Relationship Specialty Start [place] [address] [place] [address] PCP - General FAMILY PRACTICE 02/27/18 documented as of this encounter
--- OUTSIDE RECORDS SUMMARY | 2024-04-27 18:24 | XMS_ITS | Encounter Summary ---
Author Organization [facility] Address [address] [place] [address]. 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 No / Unsure 12/21/2020 2:59 PM CDT documented as of this encounter Plan of Treatment Upcoming Encounters Date Type Department Care Team (Late st Contact Info) Description 06/09/2024 4:20 PM MANAGER INVENTORY Office Visit [facility] Family & Internal Medicine [facility] [address] [place] [address] [place] [address] [place] [address] documented as of this encounter Visit Diagnoses Not on filedocumented in this encounter Additional Health Concerns Assessment Noted Time PHQ-9 Depression Total Score: 0 10/21/19 21 2:25 PM CDT documented as of this encounter Care Teams Clinical Specialist Relationship Specialty Start [place] [address] [place] [address] PCP - General FAMILY PRACTICE 02/27/18 documented as of this encounter
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
--- OUTSIDE RECORDS SUMMARY | 2024-04-27 18:24 | XMS_ITS | Encounter Summary ---
Author Organization [facility] Address [address] [place] [address]. [place] [address] [place] [address] Care Team Providers Care Electronic Transaction Implementer Name Role Phone León Sanchez MD Primary Care Provider [phone] Reason for Referral * Consultation (Routine) - Closed Specialty Diagnoses / Procedures Referred By Hugo sharp Referred To Contact ORTHOPAEDICS SURGERY Diagnoses Knee pain Procedures OFFICE/OUTPT VISIT,NEW,LEVL III OFFICE/OUTPT VISIT,NEW,LEVL IV OFFICE/OUTPT VISIT,NEW,LEVL V OFFICE/OUTPT VISIT,EST,LEVL III OFFICE/OUTPT VISIT,EST,LEVL IV OFFICE/OUTPT VISIT,EST,[place] [address] [place] [address] Phone: tel: fax: Luis Fernando Parra DO Phone: tel: fax: Referral ID Status Reason Start Date Expiration Date Visits Re quested Visits Authorized [id number] Closed 06/14/2022 07/16/2023 99 99 CH ASSOCIATE Reason for Visit * Reason Onset Date Comments Other 06/14/2022 Encounter Details Date Type Department Care Team (Late st Contact Info) Description 06/14/2022 Telephone [facility] Family & Internal Medicine [facility] [address] [place] [phone] [place] [address] [place] [address] Other Social History Tobacco Use Types Packs/Day Years [...] Sexual Orientation Straight 03/28/2018 4: 44 PM BRANCH 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 No / Unsure 06/09/2022 4:07 PM BRANCH ASSOCIATE documented as of this encounter Progress Notes * Travis Blackburn RN - 06/15/2022 9:53 AM CST will call and speak to Dr. Parra. CH ASSOCIATE * Nishi Topete RN - 06/14/2022 4:15 PM CST Task printed and given to CH ASSOCIATE * Nishi Topete RN - 06/14/2022 4:14 PM CST Called and spoke with Omar and his and informed them about referral. They v/u. States his insurance will not cover the rooster comb injections with the hyaluronic acid and is requesting to talk to Dr Parra about this. CH ASSOCIATE * Cris Lu - 06/14/2022 3:20 PM CST Omar called back, said he did not get a phone call returned. I read him the nurse message and his said she did not speak to anyone. I read the name of the phone number listed and Omar is not sure who's phone number that is but it is not his or his . After reading the nurse note to Omar he is wanting to get the referral to Dr Parra started. Omar also wanted me to pass along that [facility] did not approve the medication for his knee. He said Dr Bhatia would know what he was talking about. CB # [phone] Vicky CH ASSOCIATE * Nishi Topete RN - 06/14/2022 12:[address] Sanchez, can refer pt to Dr Luis Fernando Parra here in [place] for rooster comb injection in knee. This injection can help with pain. Called and spoke with pt's and informed her of this. Shestates she will discuss this with pt and call us back to let us know. CH ASSOCIATE * Sandra Vazquez LPN - 06/14/2022 7:28 AM CST Pt request call back about knee inj No details given [phone] CH ASSOCIATE documented in this encounter Plan of Treatment Upcoming Encounters Date Type Department Care Team (Late st Contact Info) Description 06/09/2024 4:20 PM BRANCH ASSOCIATE Office Visit [facility] Medical Group Family & Internal Medicine - [place] [phone] [place] [phone] León Sanchez MD [address] [place] [address] Scheduled Referrals Name Type Priority Associated Diagnoses Orde r Schedule Ambulatory referral to orthopedic surgery ([facility]) Referral Routine Knee pain Ordered: 06/14/2022 documented as of this encounter Visit Diagnoses Diagnosis Knee pain- Primary Pain in joint, lower leg documented in this encounter Additional Health Concerns Assessment Noted Time PHQ-9 Depression Total Score: 0 12/29/19 21 3:46 PM CDT documented as of this encounter Care Teams Electronic Transaction Implementer Relationship Specialty Start [place] [address] [place] [address] PCP - General FAMILY PRACTICE 02/27/18 documented as of this encounter
--- OUTSIDE RECORDS SUMMARY | 2024-04-27 18:24 | XMS_ITS | Encounter Summary ---
Author Organization [facility] Address [address] [place] [address]. 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 No / Unsure 05/06/2021 3:49 PM DENTAL EQUIPMENT TECHNICIAN documented as of this encounter Plan of Treatment Upcoming Encounters Date Type Department Care Team (Late st Contact Info) Description 06/09/2024 4:20 PM DENTAL EQUIPMENT TECHNICIAN Office Visit [facility] Family & Internal Medicine [address] [place] [address] [place] [address] [place] [address] documented as of this encounter Visit Diagnoses Not on filedocumented in this encounter Additional Health Concerns Assessment Noted Time PHQ-9 Depression Total Score: 0 12/29/19 21 3:46 PM CDT documented as of this encounter Care Teams Commodity Merchant Relationship Specialty Start [place] [address] [place] [address] PCP - General FAMILY PRACTICE 02/27/18 documented as of this encounter
--- OUTSIDE RECORDS SUMMARY | 2024-04-27 18:24 | XMS_ITS | Encounter Summary ---
Author Organization [facility] Address [address] [place] [address]. [place], [place] [address] [place] [address] Care Team Providers Care Vice President Of News Name Role Phone Etienne Sanchez MD Primary Care Provider [phone] Reason for Referral * (Routine) - Closed Specialty Diagnoses / Procedures Referred By Contac lila Referred To Contact Diagnoses Chronic pain of both shoulders Procedures Joint Aspiration/Injection Etienne Sanchez MD [address] [place] [address] Phone: tel: fax: Referral ID Status Reason Start Date Expiration Date Visits Re quested Visits Authorized [id number] Closed 08/29/2022 08/30/2023 1 1 * (Routine) - Closed Specialty Diagnoses / Procedures Referred By Hugo sharp Referred To Contact Diagnoses Chronic pain of both shoulders Procedures Joint Aspiration/Injection Etienne Sanchez MD [address] [place] [address] Phone: tel: fax: Referral ID Status Reason Start Date Expiration Date Visits Re quested Visits Authorized [id number] Closed 08/29/2022 08/30/2023 1 1 Reason for Visit * Reason Comments Procedure Bilateral shoulder i njection Encounter Details Date Type Department Care Team (Late st Contact Info) Description 08/29/2022 10:40 AM CDT Office Visit [facility] Family & Internal Medicine [place] [phone] [place] [address] [place] [address] Procedure (Bilateral shoulder injection) Social History Tobacco Use [...] Sexual Orientation Straight 03/28/2018 4: 44 PM [facility] 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 No / Unsure 08/29/2022 10:13 AM CDT documented as of this encounter Last Filed Vital Signs Vital Sign Reading Time Taken Comments Blood Pressure 117/100 08/29/2022 10:31 AM CDT Pulse 84 08/29/2022 10:24 AM CDT Temperature 36.4 ??C (97.6 ??F) 08/29/2022 10:24 AM C DT Respiratory Rate 17 08/29/2022 10:24 AM CDT Oxygen Saturation 99% 08/29/2022 10:24 AM CDT Inhaled Oxygen Concentration - - Weight 66.7 kg (147 lb) 08/29/2022 10:24 AM CDT Height 175.3 cm (5' 9 ) 08/29/2022 10:24 AM CDT Body Mass Index 21.71 08/29/2022 10:24 AM CDT documented in this encounter Patient Instructions * Patient Instructions* Etienne Sanchez MD - 08/29/2022 10:40 AM CDT Rest, ice as tolerated and gentle range of motion exercises and if any fever or redness to notify the office documented in this encounter Progress Notes * Etienne Sanchez MD - 08/29/2022 10:40 AM CDTAssociated Order(s): Joint Aspiration/Injection; Joint Aspiration/Injection Post-Procedure Diagnose(s): Chronic pain of both shoulders Images from the original note were not included. Office Progress Note Reason for Visit: Procedure (Bilateral shoulder injection) History of Present Illness: HPI Pt with bilateral shoulder pain and history of arthritis and possible rotator cuff tear and has hadinjections in the past and today is requesting bilateral injections, and denies neck pain, paresthesia, rash, deformity, and no recent injuries ROS: Review of Systems Constitutional: Negative for fever, malaise/fatigue and weight loss. Respiratory: Negative for shortness of breath. Cardiovascular: Negative for chest pain. Musculoskeletal: Positive for joint pain and myalgias. Negative for neck pain. Skin: Negative for rash. Neurological: Negative for sensory change, focal weakness and headaches. Endo/Heme/Allergies: Does not bruise/bleed easily. Psychiatric/Behavioral: The patient does not have insomnia. Medications: Current Outpatient Medications: amLODIPine (NORVASC) 10 MG tablet, Take 1 tablet by mouth once daily, Disp: 90 tablet, Rfl: 1 aspirin EC 81 MG tablet, Take 1 tablet (81 mg total) by mouth daily., Disp: , Rfl: meloxicam (MOBIC) 15 MG tablet, Take 1 tablet (15 mg total) by mouth daily., Disp: 30 tablet, Rfl: 2 metFORMIN (GLUCOPHAGE) 500 MG tablet, TAKE 2 TABLETS BY MOUTH TWICE DAILY WITH MEALS, Disp: 360 tablet, Rfl: 1 Allergies: Review of patient's allergies indicates: Allergen Reactions Codeine Shortness of Breath States it is had for him to breath Latex Rash Lisinopril Cough Medical History: Past Medical History: Diagnosis Date Arthritis Cancer ([facility]) 03/2017 throat COVID-19 12/01/2020 Diabetes mellitus (CMS/HCC) Surgical History: Past Surgical [...] acute distress. HENT: Head: Normocephalic and atraumatic. Nose: Nose normal. Eyes: General: No scleral icterus. Conjunctiva/sclera: Conjunctivae normal. Pupils: Pupils are equal, round, and reactive to light. Cardiovascular: Rate and Rhythm: Normal rate. Pulses: Normal pulses. Pulmonary: Effort: Pulmonary effort is normal. No respiratory distress. Chest: Chest wall: No tenderness. Musculoskeletal: General: Tenderness present. No deformity. Normal range of motion. Cervical back: Normal range of motion. No tenderness. Skin: General: Skin is warm. Findings: No erythema or rash. Neurological: General: No focal deficit present. Mental Status: He is alert and oriented to person, place, and time. Cranial Nerves: No cranial nerve deficit. Psychiatric: Mood and Affect: Mood normal. Behavior: Behavior normal. Filed Vitals: 08/29/22 1024 08/29/22 1031 BP: (!) 117/100 (!) 117/100 Pulse: 84 Resp: 17 Temp: 97.6 ??F (36.4 ??C) TempSrc: Temporal SpO2: 99% Weight: 66.7 kg (147 lb) Height: 5' 9 (1.753 m) Body mass index is 21.71 kg/m??. Joint Aspiration/Injection Date/Time: 08/29/2022 9:07 PM Performed by: Etienne Sanchez MD Authorized [...] with no immediate complications Joint Aspiration/Injection Date/Time: 08/29/2022 9:09 PM Performed by: Etienne Sanchez MD Authorized [...] Diagnoses/Impression: 1. Chronic pain of both shoulders lidocaine (PF) (XYLOCAINE) 1 % injection 4 mL triamcinolone acetonide (KENALOG-40) injection 40 mg triamcinolone acetonide (KENALOG-40) injection 40 mg Joint Aspiration/Injection Joint Aspiration/Injection Recommendations and Plan: Patient Instructions Rest, ice as tolerated and gentle range of motion exercises and if any fever or redness to notify the office PCP: ETIENNE SANCHEZ MD 08/29/2022 documented in this encounter Plan of Treatment Upcoming Encounters Date Type Department Care Team (Late st Contact Info) Description 06/09/2024 4:20 PM [facility] Office Visit [facility] Family & Internal Medicine [facility] [phone] [place] [phone] Etienne Sanchez MD [address] [place] [address] documented as of this encounter Procedures Procedure Name Priority Date/Time Associated Diagnosis Comments JOINT ASPIRATION/INJECTIO N Routine 08/29/2022 9:09 PM CDT Chronic pain of both shoulders JOINT ASPIRATION/INJECTIO N Routine 08/29/2022 9:07 PM CDT Chronic pain of both shoulders documented in this encounter Results * Joint Aspiration/Injection (08/29/2022 9:09 PM CDT) Etienne Baumann MD - 08/29/2022 9:09 PM CDT Etienne Sanchez MD ? 08/29/2022 ??9:10 PM Joint Aspiration/Injection Date/Time: 08/29/2022 9:09 PM Performed by: Etienne Sanchez MD Authorized [...] OR DERABLES Final Result * Joint Aspiration/Injection (08/29/2022 9:07 PM CDT) Etienne Baumann MD - 08/29/2022 9:07 PM CDT Etienne Sanchez MD ? 08/29/2022 ??9:10 PM Joint Aspiration/Injection Date/Time: 08/29/2022 9:07 PM Performed by: Etienne Sanchez MD Authorized [...] MAR Action Action Date Dose Rate Site lidocaine (PF) (XYLOCAINE) 1 % injection 4 mL 4 mL, Intra-articular, Once, 1 dose, On Sun08/29/22 at 1100Indications:Chronic pain of both shoulders Given 08/29/2022 10:40 AM CDT 4 mLs Other triamcinolone acetonide (KENALOG-40) injection 40 mg 40 mg, Intra-articular, Once, 1 dose, On Sun08/29/22 at 1100, Shake WellIndications:Chronic pain of both shoulders Given 08/29/2022 10:41 AM CDT 40 mg Right Shoulder triamcinolone acetonide (KENALOG-40) injection 40 mg 40 mg, Intra-articular, Once, 1 dose, On Sun08/29/22 at 1100, Shake WellIndications:Chronic pain of both shoulders Given 08/29/2022 10:41 AM CDT 40 mg Left Shoulder documented in this encounter Additional Health Concerns Assessment Noted Time PHQ-9 Depression Total Score: 0 12/29/19 21 3:46 PM CDT documented as of this encounter Care Teams Vice President Of News Relationship Specialty [place] [address] [place] [address] PCP - General FAMILY PRACTICE 02/27/18 documented as of this encounter
--- OUTSIDE RECORDS SUMMARY | 2024-04-27 18:24 | XMS_ITS | Encounter Summary ---
Author Organization [facility] Address [address] [place] [address]. 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 No / Unsure 07/17/2022 8:57 AM CDT documented as of this encounter Medications at Time of Discharge aspirin EC 81 MG tablet Take 1 tablet (81 mg total) by mouth daily. amLODIPine (NORVASC) 10 MG tabletIndications:Hy pertension, unspecified type Take 1 tablet by mouth once daily 90 tablet 1 07/03/2022 3 meloxicam (MOBIC) 15 MG tabletIndications:Bi lateral primary osteoarthritis of knee Take 1 tablet (15 mg total) by mouth daily. 30 tablet 2 07/17/2022 4 metFORMIN (GLUCOPHAGE) 500 MG tabletIndications:Ty pe 2 diabetes mellitus without complication, with long-term current use of insulin ([facility]CC HHS/HCC) TAKE 2 TABLETS BY MOUTH TWICE DAILY WITH MEALS 360 tablet 1 07/03/2022 3 documented as of this encounter Plan of Treatment Upcoming Encounters Date Type Department Care Team (Late st Contact Info) Description 06/09/2024 4:20 PM MEDICAL COLLECTIONS REPRESENTATIVE Office Visit [facility] Family & Internal Medicine [facility] [phone] [place] [phone] [place] [address] [place] [address] documented as of this encounter Procedures Procedure Name Priority Date/Time Associated Diagnosis Comments XR KNEE RT MIN 4V STAT 07/17/2022 9:4 2 AM CDT Chronic pain of both knees XR KNEE LT MIN 4V STAT 07/17/2022 9:4 2 AM CDT Chronic pain of both knees documented in this encounter Results * XR KNEE LT [...] Interpreted By: Abigail Aranda, 07/17/2022 9:47 AM us Luis Fernando Parra DO GENERAL [...] Visit Diagnoses Diagnosis Chronic pain of both knees documented in this encounter Additional Health Concerns Assessment Noted Time PHQ-9 Depression Total Score: 0 12/29/19 21 3:46 PM CDT documented as of this encounter Care Teams Risk Control Analyst Relationship Specialty Start [place] [address] [place] [address] PCP - General FAMILY PRACTICE 02/27/18 documented as of this encounter
--- OUTSIDE RECORDS SUMMARY | 2024-04-27 18:24 | XMS_ITS | Encounter Summary ---
Author Organization [facility] Address [address] [place] [address]. 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 Not on file documented as of this encounter Plan of Treatment Upcoming Encounters Date Type Department Care Team (Late st Contact Info) Description 06/09/2024 4:20 PM CLERICAL SPECIALIST Office Visit [facility] Family & Internal Medicine [address] [address] [place] [address] [place] [address] documented as of this encounter Visit Diagnoses Diagnosis Type 2 diabetes mellitus without complication, with long-term current use of insulin ([facility]) documented in this encounter Additional Health Concerns Assessment Noted Time PHQ-9 Depression Total Score: 0 12/29/19 21 3:46 PM CDT documented as of this encounter Care Teams Car Salesperson Relationship Specialty Start [place] [address] [place] [address] PCP - General FAMILY PRACTICE 02/27/18 documented as of this encounter
--- OUTSIDE RECORDS SUMMARY | 2024-04-27 18:24 | XMS_ITS | Encounter Summary ---
Author Organization [facility] Address [address] [place] [address]. [place] [address] [place] [address] Care Team Providers Care Bar Turner Name Role Phone Etienne Sanchez MD Primary Care Provider [phone] Reason for Visit * Reason Comments Follow Up pt here for F/U and med refills, DM, Anxiety, Dyslipidemia, HTN Encounter Details Date Type Department Care Team (Late st Contact Info) Description 01/13/2021 3:40 PM CDT Office Visit [facility] Family & Internal Medicine [address] [address] [place] [id number] [place] [address] Follow Up (pt here for F/U and med refills, DM, Anxiety, Dyslipidemia, HTN) Social History Tobacco Use Types Packs/Day Years [...] Sexual Orientation Straight 03/28/2018 4: 44 PM 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 Occupation Industry Job Start Date Job End [...] Sign Reading Time Taken Comments Blood Pressure 146/72 01/13/2021 3:30 PM CDT Pulse 101 01/13/2021 3:30 PM CDT Temperature 36.4 ??C (97.5 ??F) 01/13/2021 3:30 PM CD T Respiratory Rate 16 01/13/2021 3:30 PM CDT Oxygen Saturation 98% 01/13/2021 3:30 PM CDT Inhaled Oxygen Concentration - - Weight 68.4 kg (150 lb 12.8 oz) 01/13/2021 3:30 PM CDT Height 175.3 cm (5' 9 ) 01/13/2021 3:30 PM CDT Body Mass Index 22.27 01/13/2021 3:30 PM CDT documented in this encounter Patient Instructions * Patient Instructions* Etienne Sanchez MD - 01/13/2021 3:40 PM CDT I have reviewed his last labs and ortho's report and for now continue his current medications and advised to continue low salt,low carb, low fat diet and consider aqua classes, he is up to date with his covid vaccines and influenza and vision exam documented in this encounter Progress Notes * Etienne Sanchez MD - 01/13/2021 3:40 PM CDT Images from the original note were not included. Office Progress Note Reason for Visit: Follow Up (pt here for F/U and med refills, DM, Anxiety, Dyslipidemia, HTN) History of Present Illness: Follow Up Associated [...] (four) times daily., Disp: , Rfl: ??? METFORMIN 500 [...] High school graduate Occupational History ??? 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 Smoking status: Never Smoker [...] Gatherings with Friends and Family: ??? Attends Anabaptism Services: ??? Active Member of Clubs or [...] and reactive to light. Conjunctivae are normal. Neck: No JVD present. Cardiovascular: Normal rate and regular rhythm. Pulmonary/Chest: Effort normal and breath sounds normal. He exhibits no tenderness. Musculoskeletal: General: Tenderness present. Cervical back: Neck supple. Comments: Shoulder with bilateral pain on abduction and external rotation with mild weakness Bilateral knees with tibial plateau tenderness with no effusion, ligaments are intact Neurological: He is alert and oriented to person, place, and time. Skin: Skin is warm. No rash noted. Psychiatric: He has a normal mood and affect. His behavior is normal. Nursing note and vitals reviewed. Filed Vitals: 01/13/21 1530 BP: 146/72 Pulse: 101 Resp: 16 Temp: 97.5 ??F (36.4 ??C) TempSrc: Temporal SpO2: 98% Weight: 68.4 kg (150 lb 12.8 oz) Height: 5' 9 (1.753 m) Procedures Diagnoses/Impression: 1. Chronic pain of both knees 2. Type 2 diabetes mellitus without complication, with long-term current use of insulin ([facility]) 3. Dyslipidemia 4. Anxiety Recommendations and Plan: Please see patient instructions for plan and recommendatiosn PCP: ETIENNE SANCHEZ MD 01/16/2021 documented in this encounter Plan of Treatment Upcoming Encounters Date Type Department Care Team (Late st Contact Info) Description 06/09/2024 4:20 PM 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 Office Visit [facility] Family & Internal Medicine [facility] [address] [place] [address] [place] [address] [place], [place] [id number] documented as of this encounter Visit Diagnoses Diagnosis Chronic pain of both knees- Primary Type 2 diabetes mellitus without complication, with long-term current use of insulin ([facility]) Dyslipidemia Other and unspecified hyperlipidemia Anxiety Anxiety state, unspecified documented in this encounter Additional Health Concerns Assessment Noted Time PHQ-9 Depression Total Score: 0 12/29/19 21 3:46 PM CDT documented as of this encounter Care Teams Bar Turner Relationship Specialty [place] [address] [place] [address] PCP - General FAMILY PRACTICE 02/27/18 documented as of this encounter
--- OUTSIDE RECORDS SUMMARY | 2024-04-27 18:24 | XMS_ITS | Encounter Summary ---
Author Organization [facility] Address [address] [place] [address]. 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 file Not on file documented as of this encounter Plan of Treatment Upcoming Encounters Date Type Department Care Team (Late Contact Info) Description 06/09/2024 4:20 PM PETROLEUM ANALYST Office Visit [facility] Medical [facility] Family & Internal Medicine [address] [place] [address] [place] [address] [place] [address] documented as of this encounter Visit Diagnoses Diagnosis Right shoulder pain, unspecified chronicity- Primary documented in this encounter Additional Health Concerns Assessment Noted Time PHQ-9 Depression Total Score: 0 12/29/19 21 3:46 PM CDT documented as of this encounter Care Teams Metallurgy Teacher Relationship Specialty Start [place] [address] [place] [address] PCP - General FAMILY PRACTICE 02/27/18 documented as of this encounter
--- OUTSIDE RECORDS SUMMARY | 2024-04-27 18:24 | XMS_ITS | Encounter Summary ---
Author Organization [facility] Address [address] [place] [address]. 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 No / Unsure 05/30/2021 3:34 PM YARN HAULER documented as of this encounter Plan of Treatment Upcoming Encounters Date Type Department Care Team (Late st Contact Info) Description 06/09/2024 4:20 PM YARN HAULER Office Visit [facility] Family & Internal Medicine [facility] [address] [place] [address] [place] [address] [place] [address] documented as of this encounter Visit Diagnoses Not on filedocumented in this encounter Additional Health Concerns Assessment Noted Time PHQ-9 Depression Total Score: 0 12/29/19 21 3:46 PM CDT documented as of this encounter Care Teams Web Developer Programmer Relationship Specialty Start [place] [address] [place] [address] PCP - General FAMILY PRACTICE 02/27/18 documented as of this encounter
--- OUTSIDE RECORDS SUMMARY | 2024-04-27 18:24 | XMS_ITS | Encounter Summary ---
Author Organization [facility] Address [address] [place] [address]. 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 Not on file Not [...] st Contact Info) Description 06/09/2024 4:20 PM MIXER AND SCALER Office Visit [facility] Family & Internal Medicine [facility] [address] [place] [address] [place] [address] [place] [address] documented as of this encounter Visit Diagnoses Not on filedocumented in this encounter Additional Health Concerns Assessment Noted Time PHQ-9 Depression Total Score: 0 12/29/19 21 3:46 PM CDT documented as of this encounter Care Teams Edge Worker Relationship Specialty Start Date [place] Date [place] [address] [place] [address] PCP - General FAMILY PRACTICE 02/27/18 documented as of this encounter
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
--- OUTSIDE RECORDS SUMMARY | 2024-04-27 18:24 | XMS_ITS | Encounter Summary ---
Author Organization [facility] Address [address] [place] [address]. 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 No / Unsure 06/09/2022 4:07 PM CONSUMER EDUCATOR documented as of this encounter Plan of Treatment Upcoming Encounters Date Type Department Care Team (Late st Contact Info) Description 06/09/2024 4:20 PM CONSUMER EDUCATOR Office Visit [facility] Family & Internal Medicine [facility] [address] [place] [address] [place] [address] [place] [address] documented as of this encounter Visit Diagnoses Not on filedocumented in this encounter Additional Health Concerns Assessment Noted Time PHQ-9 Depression Total Score: 0 12/29/19 21 3:46 PM CDT documented as of this encounter Care Teams Steel Shot Header Operator Relationship Specialty Start [place] [address] [place] [address] PCP - General FAMILY PRACTICE 02/27/18 documented as of this encounter
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
--- OUTSIDE RECORDS SUMMARY | 2024-04-27 18:24 | XMS_ITS | Encounter Summary ---
Author Organization [facility] Address [address] [place] [address]. [place], [place] [id number] [place] [address] Care Team Providers Care Wool Scourer Name Role Phone Etienne Sanchez MD Primary Care Provider [phone] Reason for Referral * (Routine) - Closed Specialty Diagnoses / Procedures Referred By Contac t Referred To Contact Diagnoses Chronic pain of both knees Procedures Joint Aspiration/Injection Etienne Sanchez MD [address] [place] [address] Phone: tel: fax: Referral ID Status Reason Start Date Expiration Date Visits Re quested Visits Authorized [id number] Closed 08/27/2021 09/27/2022 1 1 * (Routine) - Closed Specialty Diagnoses / Procedures Referred By Contac t Referred To Contact Diagnoses Chronic pain of both knees Procedures Joint Aspiration/Injection Etienne Sanchez MD [address] [place] [address] Phone: tel: fax: Referral ID Status Reason Start Date Expiration Date Visits Re quested Visits Authorized [id number] Closed 08/27/2021 09/27/2022 1 1 Reason for Visit * Reason Comments Procedure bilat knee injection Encounter Details Date Type Department Care Team (Late st Contact Info) Description 08/26/2021 4:20 PM CDT Office Visit [facility] Family & Internal Medicine [address] [address] [place] [address] [place] [address] Procedure (bilat knee injection) Social History Tobacco Use Types Packs/Day [...] Sexual Orientation Straight 03/28/2018 4: 44 PM 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 No / Unsure 08/26/2021 3:55 PM CDT documented as of this encounter Last Filed Vital Signs Vital Sign Reading Time Taken Comments Blood Pressure 164/104 08/26/2021 3:57 PM CDT Pulse 102 08/26/2021 3:57 PM CDT Temperature 36.5 ??C (97.7 ??F) 08/26/2021 3:57 PM CD T Respiratory Rate 16 08/26/2021 3:57 PM CDT Oxygen Saturation 98% 08/26/2021 3:57 PM CDT Inhaled Oxygen Concentration - - Weight 66.7 kg (147 lb) 08/26/2021 3:57 PM CDT Height 175.3 cm (5' 9 ) 08/26/2021 3:57 PM CDT Body Mass Index 21.71 08/26/2021 3:57 PM CDT documented in this encounter Patient Instructions * Patient Instructions* Etienne Sanchez MD - 08/26/2021 4:20 PM CDT 1) HTN: blood pressure today in office is high and he is asymptomatic and states it is better at home taking his meds as directed and maybe some to do with his pain will not change any medications and have him monitor his bp and if any symptoms to go to the ER 2) Knee pain: ice as tolerated and gentle range of motion exercise and if any redness or fever to notify the office documented in this encounter Progress Notes * Etienne Sanchez MD - 08/26/2021 4:20 PM CDTAssociated Order(s): Joint Aspiration/Injection; Joint Aspiration/Injection Post-Procedure Diagnose(s): Chronic pain of both knees Images from the original note were not included. Office Progress Note Reason for Visit: Procedure (bilat knee injection) History of Present Illness: HPI Pt with a pmh of osteoarthritis and has had injections in the past which have helped and today presents for possible injections, denies fever, deformity, redness, warmth, rash,hip pain and glucose asbeen reasonable, ROS: Review of Systems Constitutional: Negative for fever. Respiratory: Negative for shortness of breath. Cardiovascular: Negative for leg swelling. Musculoskeletal: Positive for joint pain. Negative for myalgias. Skin: Negative for rash. Neurological: Negative [...] Vitals and nursing note reviewed. Constitutional: Appearance: Normal appearance. HENT: Head: Normocephalic. Cardiovascular: Rate and Rhythm: Normal rate. Pulses: Normal pulses. Pulmonary: Effort: Pulmonary effort is normal. Breath sounds: No wheezing or rales. Musculoskeletal: General: Tenderness present. No swelling or deformity. Normal range of motion. Skin: General: Skin is warm. Findings: No rash. Neurological: General: No focal deficit present. Mental Status: He is alert. Motor: No weakness. Psychiatric: Mood and Affect: Mood normal. Behavior: Behavior normal. Filed Vitals: 08/26/21 1557 BP: (!) 164/104 Pulse: 102 Resp: 16 Temp: 97.7 ??F (36.5 ??C) TempSrc: Temporal SpO2: 98% Weight: 66.7 kg (147 lb) Height: 5' 9 (1.753 m) Body mass index is 21.71 kg/m??. Joint Aspiration/Injection Date/Time: 08/27/2021 9:37 AM Performed by: Etienne Sanchez MD Authorized by: Etienne Sanchez MD Indications: pain Body area: knee Joint: right knee Local anesthesia used: yes Anesthesia: local infiltration Anesthesia: Local anesthesia used: yes Local Anesthetic: lidocaine 1% with epinephrine Anesthetic total: 1 mL Sedation: Patient sedated: no Preparation: Patient was prepped and draped in the usual sterile fashion. Needle gauge: 27. Ultrasound guidance: no Approach: lateral Triamcinolone amount: 40 mg Patient tolerance: patient tolerated the procedure well with no immediate complications Joint Aspiration/Injection Date/Time: 08/27/2021 9:38 AM Performed by: Etienne Sanchez MD Authorized by: Etienne Sanchez MD Indications: pain Body area: knee Joint: left knee Local anesthesia used: yes Anesthesia: local infiltration Anesthesia: Local anesthesia used: yes Local Anesthetic: lidocaine 1% with epinephrine Anesthetic total: 1 mL Sedation: Patient sedated: no Preparation: Patient was prepped and draped in the usual sterile fashion. Needle gauge: 27. Ultrasound guidance: no Approach: lateral Triamcinolone amount: 40 mg Patient tolerance: patient tolerated the procedure well with no immediate complications Diagnoses/Impression: 1. Chronic knee pain, unspecified laterality triamcinolone acetonide (KENALOG- 40) injection 40 mg triamcinolone acetonide (KENALOG-40) injection 40 mg lidocaine (XYLOCAINE) 2 % injection 2 mL lidocaine-EPINEPHrine injection 2 mL 2. Chronic pain of both knees Joint Aspiration/Injection Joint Aspiration/Injection Recommendations and Plan: Patient Instructions 1) HTN: blood pressure today in office is high and he is asymptomatic and states it is better at home taking his meds as directed and maybe some to do with his pain will not change any medications and have him monitor his bp and if any symptoms to go to the ER 2) Knee pain: ice as tolerated and gentle range of motion exercise and if any redness or fever to notify the office PCP: ETIENNE SANCHEZ MD 08/27/2021 documented in this encounter Plan of Treatment Upcoming Encounters Date Type Department Care Team (Late st Contact Info) Description 06/09/2024 4:20 PM ENGRAVER PICTURE Office Visit [facility] Family & Internal Medicine [facility] [id number] [place] [phone] Etienne Sanchez [place] [id number] [place] [address] documented as of this encounter Procedures Procedure Name Priority Date/Time Associated Diagnosis Comments JOINT ASPIRATION/INJECTIO N Routine 08/27/2021 9:38 AM CDT Chronic pain of both knees JOINT ASPIRATION/INJECTIO N Routine 08/27/2021 9:37 AM CDT Chronic pain of both knees documented in this encounter Results * Joint Aspiration/Injection (08/27/2021 9:38 AM CDT) Etienne Baumann MD - 08/27/2021 9:38 AM CDT Etienne Sanchez MD ? 08/27/2021 ??9:41 AM Joint Aspiration/Injection Date/Time: 08/27/2021 9:38 AM Performed by: Etienne Sanchez MD Authorized by: Etienne Sanchez MD Indications: pain Body area: knee Joint: left knee Local anesthesia used: yes Anesthesia: local infiltration Anesthesia: Local anesthesia used: yes Local Anesthetic: lidocaine 1% with epinephrine Anesthetic total: 1 mL Sedation: Patient sedated: no Preparation: Patient was prepped and draped in the usual sterile fashion. Needle gauge: 27. Ultrasound guidance: no Approach: lateral Triamcinolone amount: 40 mg Patient tolerance: patient tolerated the procedure well with no immediate complications us Etienne Sanchez MD PROCEDURE/MINOR SURGICAL OR DERABLES Final Result * Joint Aspiration/Injection (08/27/2021 9:37 AM CDT) Etinene Baumann MD - 08/27/2021 9:37 AM CDT Etienne Sanchez MD ? 08/27/2021 ??9:41 AM Joint Aspiration/Injection Date/Time: 08/27/2021 9:37 AM Performed by: Etienne Sanchez MD Authorized by: Etienne Sanchez MD Indications: pain Body area: knee Joint: right knee Local anesthesia used: yes Anesthesia: local infiltration Anesthesia: Local anesthesia used: yes Local Anesthetic: lidocaine 1% with epinephrine Anesthetic total: 1 mL Sedation: Patient sedated: no Preparation: Patient was prepped and draped in the usual sterile fashion. Needle gauge: 27. Ultrasound guidance: no Approach: lateral Triamcinolone amount: 40 mg Patient tolerance: patient tolerated the procedure well with no immediate complications us Etienne Sanchez MD PROCEDURE/MINOR SURGICAL OR DERABLES Final Result documented in this encounter Visit Diagnoses Diagnosis Chronic knee pain, unspecified laterality- Primary documented in this encounter Administered Medications Inactive Administered Medications - up to 3 most recent administrations Medication Order MAR Action Action Date Dose Rate Site lidocaine (XYLOCAINE) 2 % injection 2 mL 2 mL, Other, Once, 1 dose, On Sun08/26/21 at 1700Indications:Chronic knee pain, unspecified laterality Given 08/26/2021 4:34 PM CDT 2 mLs Left Knee lidocaine-EPINEPHrine injection 2 mL 2 mL, Other, Once, 1 dose, On Sun08/26/21 at 1700Indications:Chronic knee pain, unspecified laterality Given 08/26/2021 4:35 PM CDT 2 mLs Bilateral (both) Knees triamcinolone acetonide (KENALOG-40) injection 40 mg 40 mg, Intra-articular, Once, 1 dose, On Sun08/26/21 at 1700, Shake WellIndications:Chronic knee pain, unspecified laterality Given 08/26/2021 4:37 PM CDT 40 mg Right Knee triamcinolone acetonide (KENALOG-40) injection 40 mg 40 mg, Intra-articular, Once, 1 dose, On Sun08/26/21 at 1700, Shake WellIndications:Chronic knee pain, unspecified laterality Given 08/26/2021 4:36 PM CDT 40 mg Left Knee documented in this encounter Additional Health Concerns Assessment Noted Time PHQ-9 Depression Total Score: 0 12/29/19 21 3:46 PM CDT documented as of this encounter Care Teams Wool Scourer Relationship Specialty [place] [address] [place] [address] PCP - General FAMILY PRACTICE 02/27/18 documented as of this encounter
--- OUTSIDE RECORDS SUMMARY | 2024-04-27 18:24 | XMS_ITS | Encounter Summary ---
Author Organization [facility] Address [address] [place] [address]. [place] [address] [place] [address] Care Team Providers Care Barber Stylist Name Role Phone León Sanchez MD Primary Care Provider [phone] Reason for Referral * Imaging (Routine) - Closed Specialty Diagnoses / Procedures Referred By Hugo sharp Referred To Contact RADIOLOGY Diagnoses Primary osteoarthritis of left knee Primary osteoarthritis of right knee Procedures OUS GUIDE NEEDLE PLCMT ORTHO Jennifer [place] NP-C Referral ID Status Reason Start Date Expiration Date Visits Re quested Visits Authorized [id number] Closed 12/21/2020 01/21/2022 1 1 Reason for Visit * Reason Comments Follow Up bilateral knee Eufle xxa #1 Encounter Details Date Type Department Care Team (Late st Contact Info) Description 12/21/2020 3:20 PM CDT Office Visit [facility] Multispecialty Care - [address], [address] [place] [id number] Jennifer [place] NP-C Follow Up (bilateral knee Euflexxa #1) Social History Tobacco Use Types Packs/Day Years [...] Sexual Orientation Straight 03/28/2018 4: 44 PM 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 No / Unsure 12/21/2020 2:59 PM CDT documented as of this encounter Last Filed Vital Signs Vital Sign Reading Time Taken Comments Blood Pressure 104/78 12/21/2020 3:15 PM CDT Pulse 102 12/21/2020 3:15 PM CDT Temperature - - Respiratory Rate - - Oxygen Saturation - - Inhaled Oxygen Concentration - - Weight 67.3 kg (148 lb 4.8 oz) 12/21/2020 3:15 P M CDT Height 175.3 cm (5' 9 ) 12/21/2020 3:15 PM CDT Body Mass Index 21.9 12/21/2020 3:15 PM CDT documented in this encounter Progress Notes * ALINA Brown - 12/21/2020 3:20 PM CDTSummary: BILATERAL KNEE EUFLEXXA #1 DX: OA PROCEDURE: Skin was prepped with Chloraprep swab. I injected bilateral knees with 2 cc Eulfexxa with 22g needle. [...] st Contact Info) Description 06/09/2024 4:20 PM L D RN Office Visit [facility] Family & Internal Medicine [facility] [address] [place] [address] [place] [address] [place] [address] documented as of this encounter Results * OUS GUIDE NEEDLE PLCMT ORTHO (12/21/2020 3:15 PM CDT) Anatomical Region Laterality Modality Ultrasound 12/21/2020 3:19 PM CDT Narrative 12/21/2020 3:19 PM CDT This report does not contain a radiologist's interpretation. Please review associated procedure and/or operative report. Procedure Note Kareen Herrera MD - 12/21/2020 This report does not contain a radiologist's interpretation. Please review associated procedure and/or operative report. us Jennifer [place] GAS REGULATOR REPAIRER HELPER-C ULTRASOUND Final Re sult documented in this [...] (2 mL), Intra-articular, Once, 1 dose, On Sun12/21/20 at 1600, RightIndications:Primary osteoarthritis of left knee Given 12/21/2020 3:51 PM CDT 20 mg Right Knee hyaluronate sodium (EUFLEXXA) injection 20 mg 20 mg (2 mL), Intra-articular, Once, 1 dose, On Sun12/21/20 at 1600, LeftIndications:Primary osteoarthritis of right knee Given 12/21/2020 3:53 PM CDT 20 mg Left Knee documented in this encounter Additional Health Concerns Assessment Noted Time PHQ-9 Depression Total Score: 0 07/07/20 21 2:25 PM CDT documented as of this encounter Care Teams Barber Stylist Relationship Specialty Start [place] [address] [place] [address] PCP - General FAMILY PRACTICE 02/27/18 documented as of this encounter
--- OUTSIDE RECORDS SUMMARY | 2024-04-27 18:24 | XMS_ITS | Encounter Summary ---
Author Organization [facility] Address [address] [place] [address]. [place] [address] [place] [address] Care Team Providers Care Administrative Hearing Officer Name Role Phone León Sanchez MD Primary Care Provider [phone] Reason for Visit * Reason Onset Date Comments Other 07/25/2022 Encounter Details Date Type Department Care Team (Late st Contact Info) Description 07/25/2022 Telephone [facility] Orthopedic Surgery-[place] [address] [place] [address] [place] [address] [place], [place] [id number] Other Social History Tobacco Use Types Packs/Day [...] Sexual Orientation Straight 03/28/2018 4: [address]ER 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 No / Unsure 07/17/2022 8:57 AM CDT documented as of this encounter Progress Notes * Lesly Rosas LPN - 07/25/2022 3:21 PM CDT Spoke with , scheduled Durolane injections for 08/14/22. * Caro Vogt - 07/25/2022 11:05 AM CDT Lesly - Patients was returning your call. Please call her back any time after 3pm. She will be off work by then Thanks documented in this encounter Plan of Treatment Upcoming Encounters Date Type Department Care Team (Late st Contact Info) Description 06/09/2024 4:[address]ER Office Visit [facility] Medical [facility] Family & Internal Medicine - [place] [address] [place] [address] [place] [address] [place] [id number] documented as of this encounter Visit Diagnoses Not on filedocumented in this encounter Additional Health Concerns Assessment Noted Time PHQ-9 Depression Total Score: 0 12/29/19 21 3:46 PM CDT documented as of this encounter Care Teams Administrative Hearing Officer Relationship Specialty Start [place] [address] [place] [address] PCP - General FAMILY PRACTICE 02/27/18 documented as of this encounter
--- OUTSIDE RECORDS SUMMARY | 2024-04-27 18:24 | XMS_ITS | Encounter Summary ---
Author Organization [facility] Address [address] [place] [address]. 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 Not on [...] (Late Contact Info) Description 06/09/2024 4:[address] JUSTICE Office Visit [facility] Medical [facility] Family & Internal Medicine [facility] [address] [place] [address] [place] [address] [place] [address] documented as of this encounter Visit Diagnoses Not on filedocumented in this encounter Additional Health Concerns Assessment Noted Time PHQ-9 Depression Total Score: 0 12/29/19 21 3:46 PM CDT documented as of this encounter Care Teams Shovel Loader Operator Relationship Specialty Start [place] [address] [place] [address] PCP - General FAMILY PRACTICE 02/27/18 documented as of this encounter
--- OUTSIDE RECORDS SUMMARY | 2024-04-27 18:24 | XMS_ITS | Encounter Summary ---
Author Organization [facility] Address [address] [place] [address]. 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 Not on file Not [...] st Contact Info) Description 06/09/2024 4:20 PM GRANITE SANDBLASTER APPRENTICE Office Visit [facility] Medical Group Family & Internal Medicine [address] [address] [place] [address] [place], [place] [phone] documented as of this encounter Visit Diagnoses Not on filedocumented in this encounter Additional Health Concerns Assessment Noted Time PHQ-9 Depression Total Score: 0 12/29/19 21 3:46 PM CDT documented as of this encounter Care Teams Health Physicist Relationship Specialty Start [place] [address] [place] [address] PCP - General FAMILY PRACTICE 02/27/18 documented as of this encounter
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
--- OUTSIDE RECORDS SUMMARY | 2024-04-27 18:24 | XMS_ITS | Encounter Summary ---
Author Organization [facility] Address [address] [place] [address]. 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 Not on file Not on file documented as of this encounter Plan of Treatment Upcoming Encounters Date Type Department Care Team (Late Contact Info) Description 06/09/2024 4:20 PM ACUTE CARE SURGEON Office Visit [facility] Medical Group Family & Internal Medicine [facility] [address] [place] [address] León [place] [id number] [place] [address] documented as of this encounter Visit Diagnoses Not on filedocumented in this encounter Additional Health Concerns Assessment Noted Time PHQ-9 Depression Total Score: 0 12/29/19 21 3:46 PM CDT documented as of this encounter Care Teams Concrete Crusher Loader Operator Relationship Specialty Start [place] [address] [place] [address] PCP - General FAMILY PRACTICE 02/27/18 documented as of this encounter
--- OUTSIDE RECORDS SUMMARY | 2024-04-27 18:24 | XMS_ITS | Encounter Summary ---
Author Organization [facility] Address [address] [place] [address]. [place], [place] [address] [place] [address] Care Team Providers Care Retail Client Solutions Consultant Name Role Phone Etienne Sanchez MD Primary Care Provider [phone] Reason for Referral * (Routine) - Closed Specialty Diagnoses / Procedures Referred By Contac t Referred To Contact Diagnoses Chronic pain of both knees Procedures Joint Aspiration/Injection Etienne Sanchez MD [address] [place] [address] Phone: tel: fax: Referral ID Status Reason Start Date Expiration Date Visits Re quested Visits Authorized [id number] Closed 06/05/2021 07/03/2022 1 1 OTIONS FIRM ACCOUNTS MANAGER * (Routine) - Closed Specialty Diagnoses / Procedures Referred By Contcortney sharp Referred To Contact Diagnoses Chronic pain of both knees Procedures Joint Aspiration/Injection Etienne Sanchez MD [address] [place] [address] Phone: tel: fax: Referral ID Status Reason Start Date Expiration Date Visits Re quested Visits Authorized [id number] Closed 06/05/2021 07/03/2022 1 1 OTIONS FIRM ACCOUNTS MANAGER Reason for Visit * Reason Comments Knee Pain pt here for b/l knee injections Encounter Details Date Type Department Care Team (Late st Contact Info) Description 05/30/2021 4:00 PM PROMOTIONS FIRM ACCOUNTS MANAGER Office Visit [facility] Family & Internal Medicine [address] [address] [place] [address] [place] [address] Knee Pain (pt here for b/l knee injections) Social History Tobacco Use Types Packs/Day Years Used Date Smoking Tobacco: Never Smokeless Tobacco: Former Snuff Quit: 03/2017 Tobacco Cessation:Counseling Given: Yes Alcohol Use Standard Drinks/Week Comments No 0 [...] Sexual Orientation Straight 03/28/2018 4: 44 PM PROMOTIONS FIRM ACCOUNTS MANAGER 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 No / Unsure 05/30/2021 3:34 PM PROMOTIONS FIRM ACCOUNTS MANAGER documented as of this encounter Last Filed Vital Signs Vital Sign Reading Time Taken Comments Blood Pressure 194/86 05/30/2021 3:52 PM PROMOTIONS FIRM ACCOUNTS MANAGER Pulse 82 05/30/2021 3:52 PM PROMOTIONS FIRM ACCOUNTS MANAGER Temperature 36.6 ??C (97.9 ??F) 05/30/2021 3:52 PM CS T Respiratory Rate 16 05/30/2021 3:52 PM PROMOTIONS FIRM ACCOUNTS MANAGER Oxygen Saturation 98% 05/30/2021 3:52 PM PROMOTIONS FIRM ACCOUNTS MANAGER Inhaled Oxygen Concentration - - Weight 69.6 kg (153 lb 6.4 oz) 05/30/2021 3:52 P M PROMOTIONS FIRM ACCOUNTS MANAGER Height 175.3 cm (5' 9 ) 05/30/2021 3:52 PM PROMOTIONS FIRM ACCOUNTS MANAGER Body Mass Index 22.65 05/30/2021 3:52 PM PROMOTIONS FIRM ACCOUNTS MANAGER documented in this encounter Patient Instructions * Patient Instructions* Etienne Sanchez MD - 05/30/2021 4:00 PM PROMOTIONS FIRM ACCOUNTS MANAGER Rest,ice as tolerated and gentle range of motion exercises and if any redness or fever to notify the office OTIONS FIRM ACCOUNTS MANAGER documented in this encounter Progress Notes * Etienne Sanchez MD - 05/30/2021 4:00 PM CSTAssociated Order(s): Joint Aspiration/Injection; Joint Aspiration/Injection Post-Procedure Diagnose(s): Chronic pain of both knees Images from the original note were not included. Office Progress Note Reason for Visit: Knee Pain (pt here for b/l knee injections) History of Present Illness: HPI Pt with a history of OA and chronic knee pain presents for injections which he has had in the past and will be considering TKR in the future denies deformity, redness, swelling, fever hip or low backpain, rash, ROS: Review of Systems Constitutional: Negative for fever, malaise/fatigue and weight loss. Respiratory: Negative for shortness of breath. Cardiovascular: Negative for leg swelling. Musculoskeletal: Positive for joint pain. Negative for myalgias. Skin: Negative for rash. Neurological: Negative for sensory change. Endo/Heme/Allergies: Does not bruise/bleed easily. Psychiatric/Behavioral: The [...] nursing note reviewed. Constitutional: Appearance: Normal appearance. He is not ill-appearing. HENT: Head: Normocephalic. Eyes: General: No scleral icterus. Conjunctiva/sclera: Conjunctivae normal. Pupils: Pupils are equal, round, and reactive to light. Neck: Vascular: No carotid bruit. Cardiovascular: Rate and Rhythm: Normal rate and regular rhythm. Pulses: Normal pulses. Heart sounds: Normal heart sounds. Pulmonary: Effort: Pulmonary effort is normal. Breath sounds: Normal breath sounds. No rales. Musculoskeletal: General: Tenderness present. No swelling or deformity. Normal range of motion. Cervical back: Normal range of motion. Skin: General: Skin is warm. Findings: No erythema or rash. Neurological: General: No focal deficit present. Mental Status: He is alert and oriented to person, place, and time. Psychiatric: Mood and Affect: Mood normal. Behavior: Behavior normal. Filed Vitals: 05/30/21 1552 BP: (!) 194/86 Pulse: 82 Resp: 16 Temp: 97.9 ??F (36.6 ??C) TempSrc: Temporal SpO2: 98% Weight: 69.6 kg (153 lb 6.4 oz) Height: 5' 9 (1.753 m) Body mass index is 22.65 kg/m??. Joint Aspiration/Injection Date/Time: 05/30/2021 3:19 PM Performed by: Etienne Sanchez MD Authorized [...] with no immediate complications Joint Aspiration/Injection Date/Time: 05/30/2021 3:20 PM Performed by: Etienne Sanchez MD Authorized [...] complications Diagnoses/Impression: 1. Chronic pain of both knees triamcinolone acetonide (KENALOG-40) injection 40 mg triamcinolone acetonide (KENALOG-40) injection 40 mg Joint Aspiration/Injection Joint Aspiration/Injection Recommendations and Plan: Patient Instructions Rest,ice as tolerated and gentle range of motion exercises and if any redness or fever to notify the office PCP: ETIENNE SANCHEZ MD 06/05/2021 OTIONS FIRM ACCOUNTS MANAGER documented in this encounter Plan of Treatment Upcoming Encounters Date Type Department Care Team (Late st Contact Info) Description 06/09/2024 4:20 PM PROMOTIONS FIRM ACCOUNTS MANAGER Office Visit [facility] Family & Internal Medicine [facility] [id number] [place] [address] Etienne Sanchez MD [address] [place] [address] documented as of this encounter Procedures Procedure Name Priority Date/Time Associated Diagnosis Comments JOINT ASPIRATION/INJECTIO N Routine 05/30/2021 3:20 PM PROMOTIONS FIRM ACCOUNTS MANAGER Chronic pain of both knees JOINT ASPIRATION/INJECTIO N Routine 05/30/2021 3:19 PM PROMOTIONS FIRM ACCOUNTS MANAGER Chronic pain of both knees documented in this encounter Results * Joint Aspiration/Injection (05/30/2021 3:20 PM PROMOTIONS FIRM ACCOUNTS MANAGER) Etienne Baumann MD - 05/30/2021 3:20 PM PROMOTIONS FIRM ACCOUNTS MANAGER Etienne Sanchez MD ? 06/05/2021 ??3:22 PM Joint Aspiration/Injection Date/Time: 05/30/2021 3:20 PM Performed by: Etienne Sanchez MD Authorized [...] OR DERABLES Final Result * Joint Aspiration/Injection (05/30/2021 3:19 PM PROMOTIONS FIRM ACCOUNTS MANAGER) Etienne Baumann MD - 05/30/2021 3:19 PM PROMOTIONS FIRM ACCOUNTS MANAGER Etienne Sanchez MD ? 06/05/2021 ??3:22 PM Joint Aspiration/Injection Date/Time: 05/30/2021 3:19 PM Performed by: Etienne Sanchez MD Authorized [...] Diagnosis Chronic pain of both knees- Primary documented in this encounter Administered Medications Inactive Administered Medications - up to 3 most recent administrations Medication Order MAR Action Action Date Dose Rate Site triamcinolone acetonide (KENALOG-40) injection 40 mg 40 mg, Intra-articular, Once, 1 dose, On Sun05/30/21 at 1630, Shake WellIndications:Chronic pain of both knees Given 05/30/2021 4:10 PM PROMOTIONS FIRM ACCOUNTS MANAGER 40 mg Righ t Knee triamcinolone acetonide (KENALOG-40) injection 40 mg 40 mg, Intra-articular, Once, 1 dose, On Sun05/30/21 at 1630, Shake WellIndications:Chronic pain of both knees Given 05/30/2021 4:10 PM PROMOTIONS FIRM ACCOUNTS MANAGER 40 mg Left Knee documented in this encounter Additional Health Concerns Assessment Noted Time PHQ-9 Depression Total Score: 0 12/29/19 21 3:46 PM CDT documented as of this encounter Care Teams Retail Client Solutions Consultant Relationship Specialty [place] [address] [place] [address] PCP - General FAMILY PRACTICE 02/27/18 documented as of this encounter
--- OUTSIDE RECORDS SUMMARY | 2024-04-27 18:24 | XMS_ITS | Encounter Summary ---
Author Organization [facility] Address [address] [place] [address]. 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 Not on file Not [...] st Contact Info) Description 06/09/2024 4:20 PM TOOL ROOM ATTENDANT Office Visit [facility] Family & Internal Medicine [facility] [address] [place] [address] [place] [address] [place] [address] documented as of this encounter Visit Diagnoses Not on filedocumented in this encounter Additional Health Concerns Assessment Noted Time PHQ-9 Depression Total Score: 0 12/29/19 21 3:46 PM CDT documented as of this encounter Care Teams Special Deputy Sheriff Relationship Specialty Start [place] [address] [place] [address] PCP - General FAMILY PRACTICE 02/27/18 documented as of this encounter
--- OUTSIDE RECORDS SUMMARY | 2024-04-27 18:24 | XMS_ITS | Encounter Summary ---
Author Organization [facility] Address [address] [place] [address]. [place] [address] [place] [address] Care Team Providers Care Small Brake Form Operator Name Role Phone León Sanchez MD Primary Care Provider [phone] Reason for Referral * Consultation/Treatment (Routine) - Closed Specialty Diagnoses / Procedures Referred By Hugo sharp Referred To Contact ORTHOPAEDICS Diagnoses SLAP tear of shoulder Luis Fernando Parra DO Phone: tel: fax: Jennifer Mercedes, SCHOOL LUNCH MONITOR-C Referral ID Status Reason Start Date Expiration Date V isits Requested Visits Authorized [id number] Closed Specialty Services 03/07/2021 04/08/2022 100 100 TRE INSTRUCTOR Reason for Visit * Reason Onset Date Comments Referral 03/07/2021 Encounter Details Date Type Department Care Team (Late st Contact Info) Description 03/07/2021 Telephone [facility] Orthopedic Surgery[facility] [address] [place] [address] [place] [address] [place] [address] Referral Social History Tobacco Use Types Packs/Day [...] Sexual Orientation Straight 03/28/2018 4: 44 PM THEATRE INSTRUCTOR 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 No / Unsure 02/10/2021 1:58 PM CDT documented as of this encounter Progress Notes * Nishi Topete RN - 03/07/2021 12:30 PM CST Referral placed for pt to see Dr De Leon. TRE INSTRUCTOR * Zakiya Oh RN - 03/07/2021 10:49 AM CST Patient was on our schedule today to see Dr. Parra. He has a SLAP tear. Dr. Parra does not repairthose. Please refer to Dr. De Leon, he does SLAP repairs. He has seen him in the past for his knees.Thanks! TRE INSTRUCTOR documented in this encounter Plan of Treatment Upcoming Encounters Date Type Department Care Team (Late st Contact Info) Description 06/09/2024 4:20 PM THEATRE INSTRUCTOR Office Visit [facility] Medical Group Family & Internal Medicine [facility] [address] [place] [address] [place] [address] [place] [address] Scheduled Referrals Name Type Priority Associated Diagnoses Orde r Schedule Ambulatory referral to Orthopedics ([facility] [place]) Referral Routine SLAP tear of shoulder Ordered: 03/07/2021 documented as of this encounter Visit Diagnoses Diagnosis SLAP tear of shoulder- Primary Superior glenoid labrum lesion documented in this encounter Additional Health Concerns Assessment Noted Time PHQ-9 Depression Total Score: 0 12/29/19 21 3:46 PM CDT documented as of this encounter Care Teams Small Brake Form Operator Relationship Specialty Start [place] [address] [place] [address] PCP - General FAMILY PRACTICE 02/27/18 documented as of this encounter
--- OUTSIDE RECORDS SUMMARY | 2024-04-27 18:24 | XMS_ITS | Encounter Summary ---
Author Organization [facility] Address [address] [place] [address]. 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) TAKE 2 TABLETS BY MOUTH TWICE DAILY WITH MEALS 360 tablet 12/01/2020 1 documented as of this encounter Progress Notes * Etienne Sanchez MD - 01/20/2021 4:00 PM CDT Xray does not show any lytic lesion or fracture needs to have a left shoulder mri for possible rotator cuff tear documented in this encounter Plan of Treatment Upcoming Encounters Date Type Department Care Team (Late st Contact Info) Description 06/09/2024 4:20 PM MANAGER OUTPATIENT Office Visit [facility] Family & Internal Medicine [facility] [address] [place] [address] Etienne Sanchez MD [address] [place] [address] documented as of this encounter Procedures Procedure Name Priority Date/Time Associated Diagnosis Comments XR SHOULDER LT 4V Routine 01/20/2021 4:1 5 PM CDT Left shoulder pain documented in this encounter Results * XR SHOULDER LT [...] this encounter Visit Diagnoses Diagnosis Left shoulder pain Pain in joint, shoulder region documented in this encounter Additional Health Concerns Assessment Noted Time PHQ-9 Depression Total Score: 0 12/29/19 21 3:46 PM CDT documented as of this encounter Care Teams Panel Edge Sealer Relationship Specialty [place] [address] [place] [address] PCP - General FAMILY PRACTICE 02/27/18 documented as of this encounter
--- OUTSIDE RECORDS SUMMARY | 2024-04-27 18:24 | XMS_ITS | Encounter Summary ---
Author Organization [facility] Address [address] [place] [address]. 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 file [...] st Contact Info) Description 06/09/2024 4:20 PM FORGING PRESS LEVER TENDER Office Visit [facility] Group Family & Internal Medicine [facility] [address] [place] [address] [place] [address] [place] [address] documented as of this encounter Visit Diagnoses Not on filedocumented in this encounter Additional Health Concerns Assessment Noted Time PHQ-9 Depression Total Score: 0 10/21/19 21 2:25 PM CDT documented as of this encounter Care Teams Lobster Catcher Relationship Specialty Start [place] Date [place] [address] [place] [address] PCP - General FAMILY PRACTICE 02/27/18 documented as of this encounter
--- OUTSIDE RECORDS SUMMARY | 2024-04-27 18:24 | XMS_ITS | Encounter Summary ---
Author Organization [facility] Address [address] [place] [address]. 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 on file [...] st Contact Info) Description 06/09/2024 4:20 PM NURSE SPECIAL Office Visit [facility] Family & Internal Medicine [facility] [address] [place] [address] [place] [address] [place] [address] documented as of this encounter Visit Diagnoses Not on filedocumented in this encounter Additional Health Concerns Assessment Noted Time PHQ-9 Depression Total Score: 0 12/29/19 21 3:46 PM CDT documented as of this encounter Care Teams Advertising Associate Relationship Specialty Start [place] [address] [place] [address] PCP - General FAMILY PRACTICE 02/27/18 documented as of this encounter
--- OUTSIDE RECORDS SUMMARY | 2024-04-27 18:24 | XMS_ITS | Encounter Summary ---
Author Organization [facility] Address [address] [place] [address]. 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 No / Unsure 03/10/2022 4:08 PM OPTICAL EFFECTS CAMERA OPERATOR documented as of this encounter Plan of Treatment Upcoming Encounters Date Type Department Care Team (Late st Contact Info) Description 06/09/2024 4:20 PM OPTICAL EFFECTS CAMERA OPERATOR Office Visit [facility] Family & Internal Medicine [facility] [address] [place] [address] [place] [address] [place] [address] documented as of this encounter Visit Diagnoses Not on filedocumented in this encounter Additional Health Concerns Assessment Noted Time PHQ-9 Depression Total Score: 0 12/29/19 21 3:46 PM CDT documented as of this encounter Care Teams Veneer Jointer Helper Relationship Specialty Start [place] [address] [place] [address] PCP - General FAMILY PRACTICE 02/27/18 documented as of this encounter
--- OUTSIDE RECORDS SUMMARY | 2024-04-27 18:24 | XMS_ITS | Encounter Summary ---
Author Organization [facility] Address [address] [place] [address]. 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 on file Not [...] st Contact Info) Description 06/09/2024 4:20 PM BURIAL VAULT DELIVERER AND INSTALLER Office Visit [facility] Family & Internal Medicine [facility] [address] [place] [address] [place] [address] [place] [address] documented as of this encounter Visit Diagnoses Not on filedocumented in this encounter Additional Health Concerns Assessment Noted Time PHQ-9 Depression Total Score: 0 12/29/19 21 3:46 PM CDT documented as of this encounter Care Teams Hearing Aid Specialist Relationship Specialty Start [place] [address] [place] [address] PCP - General FAMILY PRACTICE 02/27/18 documented as of this encounter
--- OUTSIDE RECORDS SUMMARY | 2024-04-27 18:24 | XMS_ITS | Encounter Summary ---
Author Organization [facility] Address [address] [place] [address]. [place], [place] [address] [place] [address] Care Team Providers Care African Studies Professor Name Role Phone Etienne Sanchez MD Primary Care Provider [phone] Reason for Referral * (Routine) - Closed Specialty Diagnoses / Procedures Referred By Contac lila Referred To Contact Diagnoses Chronic pain of both shoulders Procedures Joint Aspiration[place] [address] [place] [address] Phone: tel: fax: Referral ID Status Reason Start Date Expiration Date Visits Re quested Visits Authorized [id number] Closed 06/27/2021 07/28/2022 1 1 * (Routine) - Closed Specialty Diagnoses / Procedures Referred By Hugo sharp Referred To Contact Diagnoses Chronic pain of both shoulders Procedures Joint Aspiration[place] [address] [place] [address] Phone: tel: fax: Referral ID Status Reason Start Date Expiration Date Visits Re quested Visits Authorized [id number] Closed 06/27/2021 07/28/2022 1 1 Reason for Visit * Reason Comments Shoulder Pain pt c/o b/l shoulder pain, requesting injections Encounter Details Date Type Department Care Team (Late st Contact Info) Description 06/27/2021 4:20 PM CDT Office Visit [facility] Medical [facility] Family & Internal Medicine [facility] [address] [place] [address] [place] [address] [place] [address] Shoulder Pain (pt c/o b/l shoulder pain, requesting injections) Social History Tobacco Use Types Packs/Day [...] Sexual Orientation Straight 03/28/2018 4: 44 PM 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 No / Unsure 06/27/2021 3:56 PM CDT documented as of this encounter Last Filed Vital Signs Vital Sign Reading Time Taken Comments Blood Pressure 140/72 06/27/2021 4:13 PM CDT Pulse 92 06/27/2021 4:13 PM CDT Temperature 36.5 ??C (97.7 ??F) 06/27/2021 4:13 PM CD T Respiratory Rate 20 06/27/2021 4:13 PM CDT Oxygen Saturation 97% 06/27/2021 4:13 PM CDT Inhaled Oxygen Concentration - - Weight 68.6 kg (151 lb 3.2 oz) 06/27/2021 4:13 P M CDT Height 175.3 cm (5' 9 ) 06/27/2021 4:13 PM CDT Body Mass Index 22.33 06/27/2021 4:13 PM CDT documented in this encounter Patient Instructions * Patient Instructions* Etienne Sanchez MD - 06/27/2021 4:20 PM CDT Ice as tolerated and gentle range of motion exercises and if any redness,or fever to notify the office documented in this encounter Progress Notes * Etienne Sanchez MD - 06/27/2021 4:20 PM CDTAssociated Order(s): Joint Aspiration/Injection; Joint Aspiration/Injection Post-Procedure Diagnose(s): Chronic pain of both shoulders Images from the original note were not included. Office Progress Note Reason for Visit: Shoulder Pain (pt c/o b/l shoulder pain, requesting injections) History of Present Illness: HPI Pt with chronic bilateral shoulder pain with no neck pain, redness,swelling,rash,deformity weaknessand presents for bilateral shoulder injections ROS: Review of Systems Constitutional: Negative for fever and malaise/fatigue. Respiratory: Negative for shortness of breath. Cardiovascular: Negative for chest pain. Musculoskeletal: Positive for joint pain. Negative for myalgias and neck pain. Skin: Negative for rash. Neurological: Negative for tremors, sensory change, focal weakness and headaches. Endo/Heme/Allergies: [...] History: Diagnosis Date ??? Arthritis ??? Cancer ([facility]) 03/2017 throat ??? COVID-19 12/01/2020 ??? Diabetes [...] distress. Appearance: Normal appearance. HENT: Head: Normocephalic. Eyes: General: No scleral icterus. Conjunctiva/sclera: Conjunctivae normal. Pupils: Pupils are equal, round, and reactive to light. Cardiovascular: Rate and Rhythm: Normal rate and regular rhythm. Pulses: Normal pulses. Heart sounds: Normal heart sounds. Pulmonary: Effort: Pulmonary effort is normal. Breath sounds: Normal breath sounds. Chest: Chest wall: No tenderness. Musculoskeletal: General: Tenderness present. No swelling. Cervical back: Normal range of motion. No tenderness. Skin: General: Skin is warm. Findings: No erythema or rash. Neurological: General: No focal deficit present. Mental Status: He is alert and oriented to person, place, and time. Cranial Nerves: No cranial nerve deficit. Psychiatric: Mood and Affect: Mood normal. Behavior: Behavior normal. Filed Vitals: 06/27/21 1613 BP: (!) 140/72 Pulse: 92 Resp: 20 Temp: 97.7 ??F (36.5 ??C) TempSrc: Temporal SpO2: 97% Weight: 68.6 kg (151 lb 3.2 oz) Height: 5' 9 (1.753 m) Body mass index is 22.33 kg/m??. Joint Aspiration/Injection Date/Time: 06/27/2021 7:33 PM Performed by: Etienne Sanchez MD Authorized [...] with no immediate complications Joint Aspiration/Injection Date/Time: 06/27/2021 7:34 PM Performed by: Etienne Sanchez MD Authorized [...] Diagnoses/Impression: 1. Chronic pain of both shoulders triamcinolone acetonide (KENALOG-40) injection 40 mg triamcinolone acetonide (KENALOG-40) injection 40 mg Joint Aspiration/Injection Joint Aspiration/Injection Recommendations and Plan: Patient Instructions Ice as tolerated and gentle range of motion exercises and if any redness,or fever to notify the office PCP: ETIENNE SANCHEZ MD 06/27/2021 documented in this encounter Plan of Treatment Upcoming Encounters Date Type Department Care Team (Late st Contact Info) Description 06/09/2024 4:20 PM PRICING SPECIALIST Office Visit [facility] Medical Group Family & Internal Medicine [facility] [address] [place] [address] Etienne Sanchez MD [address] [place] [address] documented as of this encounter Procedures Procedure Name Priority Date/Time Associated Diagnosis Comments JOINT ASPIRATION/INJECTIO N Routine 06/27/2021 7:34 PM CDT Chronic pain of both shoulders JOINT ASPIRATION/INJECTIO N Routine 06/27/2021 7:33 PM CDT Chronic pain of both shoulders documented in this encounter Results * Joint Aspiration/Injection (06/27/2021 7:34 PM CDT) Etienne Baumann MD - 06/27/2021 7:34 PM CDT Etienne Sanchez MD ? 06/27/2021 ??7:40 PM Joint Aspiration/Injection Date/Time: 06/27/2021 7:34 PM Performed by: Etienne Sanchez MD Authorized [...] OR DERABLES Final Result * Joint Aspiration/Injection (06/27/2021 7:33 PM CDT) Etienne Baumann MD - 06/27/2021 7:33 PM CDT Etienne Sanchez MD ? 06/27/2021 ??7:40 PM Joint Aspiration/Injection Date/Time: 06/27/2021 7:33 PM Performed by: Etienne Sanchez MD Authorized [...] 40 mg, Intra-articular, Once, 1 dose, On Sun06/27/21 at 1645, Shake WellIndications:Chronic pain of both shoulders Given 06/27/2021 4:23 PM CDT 40 mg Right Shoulder triamcinolone acetonide (KENALOG-40) injection 40 mg 40 mg, Intra-articular, Once, 1 dose, On Sun06/27/21 at 1645, Shake WellIndications:Chronic pain of both shoulders Given 06/27/2021 4:24 PM CDT 40 mg Left Shoulder documented in this encounter Additional Health Concerns Assessment Noted Time PHQ-9 Depression Total Score: 0 12/29/19 21 3:46 PM CDT documented as of this encounter Care Teams African Studies Professor Relationship Specialty [place] [address] [place] [address] PCP - General FAMILY PRACTICE 02/27/18 documented as of this encounter
--- OUTSIDE RECORDS SUMMARY | 2024-04-27 18:24 | XMS_ITS | Encounter Summary ---
Author Organization [facility] Address [address] [place] [address]. 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 Medical Group Family & Internal Medicine [facility] [address] [place] [address] [place] [address] [place] [address] documented as of this encounter Visit Diagnoses Not on filedocumented in this encounter Additional Health Concerns Assessment Noted Time PHQ-9 Depression Total Score: 0 12/29/19 21 3:46 PM CDT documented as of this encounter Care Teams Multi Media Specialist Relationship Specialty Start [place] [address] [place] [address] PCP - General FAMILY PRACTICE 02/27/18 documented as of this encounter
--- OUTSIDE RECORDS SUMMARY | 2024-04-27 18:24 | XMS_ITS | Encounter Summary ---
Author Organization [facility] Address [address] [place] [address]. [place] [address] [place] [address] Care Team Providers Care Reading Efficiency Course Director Name Role Phone León Sanchez MD Primary Care Provider [phone] Reason for Visit * Reason Comments Knee Pain Bilateral knee pain * Consultation (Routine) - Closed Specialty Diagnoses / Procedures Referred By Hugo t Referred To Contact ORTHOPAEDICS SURGERY Diagnoses Knee pain Procedures OFFICE/OUTPT VISIT,NEW,LEVL III OFFICE/OUTPT VISIT,NEW,LEVL IV OFFICE/OUTPT VISIT,NEW,LEVL V OFFICE/OUTPT VISIT,EST,LEVL III OFFICE/OUTPT VISIT,EST,LEVL IV OFFICE/OUTPT VISIT,EST,[place] [address] [place] [address] Phone: tel: fax: Luis Fernando Parra DO Phone: tel: fax: Referral ID Status Reason Start Date Expiration Date Visits Re quested Visits Authorized [id number] Closed 06/14/2022 07/16/2023 99 99 Encounter Details Date Type Department Care Team (Late st Contact Info) Description 07/17/2022 10:00 AM CDT Office Visit [facility] [address] [address] [place] [address] [place] [address] Knee Pain (Bilateral knee pain) Social History Tobacco Use Types Packs/Day Years [...] Sexual Orientation Straight 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 No / Unsure 07/17/2022 8:57 AM CDT documented as of this encounter Last Filed Vital Signs Vital Sign Reading Time Taken Comments Blood Pressure - - Pulse 103 07/17/2022 9:38 AM CDT Temperature 36.6 ??C (97.8 ??F) 07/17/2022 9:38 AM CD T Respiratory Rate 18 07/17/2022 9:38 AM CDT Oxygen Saturation 100% 07/17/2022 9:38 AM CDT Inhaled Oxygen Concentration - - Weight 68.4 kg (150 lb 12.8 oz) 07/17/2022 9:38 AM CDT Height 175.3 cm (5' 9 ) 07/17/2022 9:38 AM CDT Body Mass Index 22.27 07/17/2022 9:38 AM CDT documented in this encounter Progress Notes * Nishi Stewart - 07/17/2022 7:27 PM CDTAssociated Problem(s): Bilateral primary osteoarthritis of [...] Follow up after approval for visco supplementation * Nishi Stewart - 07/17/2022 10:00 AM CDT Images from the original note were not included. Office Visit Reason for Visit: Knee Pain (Bilateral knee pain) History of Present Illness: Sonny Singleton is a 61-year-old male who presents for bilateral knee pain ongoing for years. Left knee worse than Right. He has had multiple cortisone and hyaluronic acid injections in the past. The cortisone injection did not last very long but the hyaluronic acid provided relief for 5-6 months. Last injections were November 2021. Pain is localized to the medial aspect bilaterally. He recalls that about one month ago, he was carrying bags of salt up stairs and noted severe pain upon to the Left knee going back down stairs. He had to go home from work due to the pain. 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 Pain has become constant. NSAIDs (Advil) provide little relief. Has not tried Meloxicam. He does have low back/hip/groin pain but denies radiating numbness/tingling. He does experience soreness in his ankles on occasion but most pain is concentrated to the hip/low back/knees. Denies any weakness/sense of instability in the knees. Denies fever/chills/numbness/tingling/SOB/difficulty breathing/night sweats/history of gout. Does have DM currently controlled. Review of Systems: Constitutional: Negative for chills [...] Outpatient Medications Marked as Taking for the 07/17/22 encounter (Office Visit) with Luis Fernando Parra,DO [...] ??? Diabetes Father Vital Signs: Filed Vitals: 07/17/22 0938 Pulse: (!) 103 Resp: 18 Temp: 97.8 ??F (36.6 ??C) TempSrc: Temporal SpO2: 100% Weight: 68.4 kg (150 lb 12.8 oz) Height: 5' 9 (1.753 m) Estimated BMI Today: Estimated body mass index is 22.27 kg/m?? as calculated from the following: Height as of this encounter: 5' 9 (1.753 m). Weight as of this encounter: 68.4 kg (150 lb 12.8 oz). Physical Exam: Constitutional: he [...] Nursing note and vitals reviewed. Ortho Exam: Knees are stable to varus/valgus stress,/anterior/posterior drawer. No significant effusion, negative ballotable patella, negative fluid wave, positive MJLT, negative Fiordaliza. Calves are soft and nontender with no evidence of DVT or infection. No open wounds or skin breakdown. No clubbing, cyanosis, edema, or adenopathy. Imaging: Xray Bilateral Knees 07/17/22 Right 1. There is no evidence of acute fracture, dislocation, or osseous erosion. Minor loss of medial joint space without osteophyte. 2. Minor tibial spine spurring. Lateral joint space is well-maintained without osteophyte. 3. No radiopaque foreign bodies or abnormal soft tissue calcifications noted. 3. Patella is intact. Very minor patellar spur. No gross joint effusion. Left 1. There is no evidence of acute fracture, dislocation, or osseous erosion. Minor loss of medial joint space without osteophyte. 2. Lateral joint spaces well-maintained without osteophyte. Mild tibial spine spurring. 3. No radiopaque foreign bodies or abnormal soft tissue calcifications noted. 3. Patella is intact. Very minor patellar spur. Small suprapatellar joint effusion. Assessment/Plan: Problem List Items Addressed This Visit Endocrine and Metabolic Type 2 diabetes mellitus (CMS/HCC) - Primary Other Bilateral knee pain Bilateral primary osteoarthritis of knee We discussed [...] Follow up after approval for visco supplementation Relevant Medications meloxicam (MOBIC) 15 MG tablet Other Relevant Orders DRAIN/INJECT LARGE JOINT/BURSA Procedure: We discussed the risks, benefits and alternatives. All questions were answered and informed consentis obtained. Both knees are prepped with alcohol and Betadine. Under sterile technique an 18-gauge needle was inserted to the medial patellofemoral joint and 3.5 milliliters of synovial fluid is aspirated from the Left knee, 1 milliliter from the Right knee. Kenalog 80mg/2ml and 4ml Bupivacaine 0.25% is instilled into each knee. Patient tolerated the procedure well without adverse effects. Area is cleansed and a Band-Aid is placed. Nishi Lopez scribe, am personally taking down the notes in the presence of LUIS FERNANDO PARRA DO. [07/17/22, 7:27 PM] Luis Fernando Parra DO Orthopedic Surgery Cosigned by Luis Fernando Parra DO at 07/18/2022 9:31 PM CDT documented in this encounter Plan of Treatment Upcoming Encounters Date Type Department Care Team (Late st Contact Info) Description 06/09/2024 4:20 PM FOOD PREPARER Office Visit [facility] Medical Group Family & Internal Medicine - [place] [address] [place] [address] [place] [address] [place] [address] Scheduled Orders Name Type Priority Associated Diagnoses Orde r Schedule DRAIN/INJECT LARGE JOINT/BURSA Procedures Routine Bilateral primary osteoarthritis of knee Ordered: 07/17/2022 documented as of this encounter Visit Diagnoses Diagnosis Type 2 diabetes mellitus without complication, with long-term current use of insulin ([facility])- Primary Chronic pain of both knees Bilateral primary osteoarthritis of knee documented in this encounter Administered Medications Inactive Administered Medications - up to 3 most recent administrations Medication Order MAR Action Action Date Dose Rate Site BUpivacaine 0.5 % (MARCAINE) 0.5 % injection 4 mL 4 mL, Intra-articular, Once, 1 dose, On Sun07/17/22 at 1045Indications:Bilateral primary osteoarthritis of knee Given 07/17/2022 10:45 AM CDT 4 mLs Right Knee BUpivacaine 0.5 % (MARCAINE) 0.5 % injection 4 mL 4 mL, Intra-articular, Once, 1 dose, On Sun07/17/22 at 1045Indications:Bilateral primary osteoarthritis of knee Given 07/17/2022 10:45 AM CDT 4 mLs Left Knee triamcinolone acetonide (KENALOG-40) injection 80 mg 80 mg, Intra-articular, Once, 1 dose, On Sun07/17/22 at 1045, Shake WellIndications:Bilateral primary osteoarthritis of knee Given 07/17/2022 10:46 AM CDT 80 mg Right Knee triamcinolone acetonide (KENALOG-40) injection 80 mg 80 mg, Intra-articular, Once, 1 dose, On Sun07/17/22 at 1045, Shake WellIndications:Bilateral primary osteoarthritis of knee Given 07/17/2022 10:45 AM CDT 80 mg Left Knee documented in this encounter Additional Health Concerns Assessment Noted Time PHQ-9 Depression Total Score: 0 12/29/19 21 3:46 PM CDT documented as of this encounter Care Teams Reading Efficiency Course Director Relationship Specialty Start [place] [address] [place] [address] PCP - General FAMILY PRACTICE 02/27/18 documented as of this encounter
--- OUTSIDE RECORDS SUMMARY | 2024-04-27 18:24 | XMS_ITS | Encounter Summary ---
Author Organization [facility] Address [address] [place] [address]. [place], [place] [address] [place] [address] Care Team Providers Care Drill Instructor Name Role Phone León Sanchez MD Primary Care Provider [phone] Reason for Referral * Consultation (Routine) - Closed Specialty Diagnoses / Procedures Referred By Hugo sharp Referred To Contact ORTHOPAEDICS SURGERY Diagnoses [place] [address] [place] [address] Phone: tel: fax: Luis Fernando Parra DO Phone: tel: fax: Referral ID Status Reason Start Date Expiration Date Visits Re quested Visits Authorized [id number] Closed 02/11/2021 03/15/2022 1 1 Encounter Details Date Type Department Care Team (Late st Contact Info) Description 02/11/[address] [facility] Medical [facility] Family & Internal Medicine 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 Medical Group Family & Internal Medicine [facility] [address] [place] [address] [place] [address] [place] [address] Scheduled Referrals Name Type Priority Associated Diagnoses Orde r Schedule Ambulatory referral to orthopedic surgery ([facility]) Referral Routine Rotator cuff tear Ordered: 02/11/2021 documented as of this encounter Visit Diagnoses Diagnosis Rotator cuff tear- Primary Complete rupture of rotator cuff documented in this encounter Additional Health Concerns Assessment Noted Time PHQ-9 Depression Total Score: 0 12/29/19 21 3:46 PM CDT documented as of this encounter Care Teams Drill Instructor Relationship Specialty Start [place] [address] [place], [place] [id number] PCP - General FAMILY PRACTICE 02/27/18 documented as of this encounter
--- OUTSIDE RECORDS SUMMARY | 2024-04-27 18:25 | XMS_ITS | Encounter Summary ---
Author Organization [facility] Address [address] [place] [address]. [place] [address] [place] [address] Care Team Providers Care Machine Bookkeeper Name Role Phone León Sanchez MD Primary Care Provider [phone] Encounter Details Date Type Department Care Team (Latest Contact Info) Description 09/26/2019 Travel Social History Tobacco Use Types Packs/Day [...] please move on to questions 3-9 0 09/26/2019 Education Answer Date Recorded What is the highest level of school you have completed or the highest degree you have received? 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 No / Unsure 09/26/2019 9:41 AM CDT documented as of this encounter Plan of Treatment Upcoming Encounters Date Type Department Care Team (Late st Contact Info) Description 06/09/2024 4:20 PM MARKETING SALES CONSULTANT Office Visit [facility] Medical Group Family & Internal Medicine [address] [place] [address] [place] [address] [place] [address] documented as of this encounter Visit Diagnoses Not on filedocumented in this encounter Care Teams Machine Bookkeeper Relationship Specialty Start [place] [address] [place] [address] PCP - General FAMILY PRACTICE 02/27/18 documented as of this encounter
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
--- OUTSIDE RECORDS SUMMARY | 2024-04-27 18:25 | XMS_ITS | Encounter Summary ---
Author Organization [facility] Address [address] [place] [address]. [place], [place] [address] [place] [address] Care Team Providers Care Waiter/Waitress Buffet Name Role Phone León Sanchez MD Primary Care Provider [phone] Encounter Details Date Type Department Care Team (Late st Contact Info) Description 01/13/2019 Orders Only [facility] Family & Internal [address] [address] Donna Muhammad MA Social History Tobacco Use Types Packs/Day Years Used Date Smoking Tobacco: Never Smokeless Tobacco: Former Snuff Quit: 03/2017 Alcohol Use Standard Drinks/Week Comments No 0 (1 standard drink = 0.6 oz pur e alcohol) AUDIT-C Answer Date Recorded Frequency of Alcohol Consumption Never 02/26/2018 Average Number of Drinks Not on file 018 Frequency of Binge Drinking Not on file 02/14 Education Answer Date Recorded What is the highest level of school you have completed or the highest degree you have received? 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 Not on file Not on file documented as of this encounter Plan of Treatment Upcoming Encounters Date Type Department Care Team (Late st Contact Info) Description 06/09/2024 4:20 PM HARVEST SUPERVISOR Office Visit [facility] & Internal [address] [address] León Sanchez MD [address] [place], [place] [id number] documented as of this encounter Visit Diagnoses Not on filedocumented in this encounter Care Teams Waiter/Waitress Buffet Relationship Specialty Start Date [place] [address] [place] [address] PCP - General FAMILY PRACTICE 02/27/18 documented as of this encounter
--- OUTSIDE RECORDS SUMMARY | 2024-04-27 18:25 | XMS_ITS | Encounter Summary ---
Author Organization [facility] Address [facility] [place] [address] [place] [address] Care Team Providers Care Emulsion Coater Name Role Phone Etienne Sanchez MD Primary Care Provider [phone] Reason for Referral * Consultation (Urgent) - Closed Specialty Diagnoses / Procedures Referred By Hugo sharp Referred To Contact ORTHOPAEDICS Diagnoses Rupture of pectoralis major [place], [place] [address] [place] [address] Phone: tel: fax: [place] [id number] [place] [address] Phone: tel: fax: Referral ID Status Reason Start Date Expiration Date V isits Requested Visits Authorized [id number] Closed Specialty Services 03/03/2019 04/02/2020 99 99 NET PROFESSIONAL Reason for Visit * Reason Comments Follow Up med refills Hypertension been a bit high Encounter Details Date Type Department Care Team (Late st Contact Info) Description 03/03/2019 11:00 AM CABINET PROFESSIONAL Office Visit [facility] Family & Internal Medicine [facility] [address] [place] [address] [place] [address] [place] [address] Follow Up (med refills); Hypertension (been a bit high) Social History Tobacco Use Types Packs/Day Years [...] Sexual Orientation Straight 03/28/2018 4: 44 PM 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 Not on file Not on file documented as of this encounter Last Filed Vital Signs Vital Sign Reading Time Taken Comments Blood Pressure 116/68 03/03/2019 10:48 AM CABINET PROFESSIONAL Pulse 79 03/03/2019 10:48 AM CABINET PROFESSIONAL Temperature - - Respiratory Rate - - Oxygen Saturation 98% 03/03/2019 10:48 AM CABINET PROFESSIONAL Inhaled Oxygen Concentration - - Weight 70 kg (154 lb 6.4 oz) 03/03/2019 10:48 AM CABINET PROFESSIONAL Height 175.3 cm (5' 9 ) 03/03/2019 10:48 AM CABINET PROFESSIONAL Body Mass Index 22.8 03/03/2019 10:48 AM CABINET PROFESSIONAL documented in this encounter Patient Instructions * Patient Instructions* Etienne Sanchez MD - 03/03/2019 11:00 AM CABINET PROFESSIONAL I will send him to ortho for evaluation and to continue his present medications and monitor his blood pressure and blood glucose spent 40 min in patient education and counseling NET PROFESSIONAL NET PROFESSIONAL documented in this encounter Progress Notes * Etienne Sanchze MD - 03/03/2019 11:00 AM CST Images from the original note were not included. Office Progress Note Reason for Visit: Follow Up (med refills) and Hypertension (been a bit high) History of Present Illness: HPI Hypertension (Follow-Up): The patient presents for follow-up [...] date Last Foot exam up to date Pt states left sided upper chest pain radiating to his left hand worse with any shoulder movement with some tingling, has recently went bow hunting and noticed the pain since denies palpitation, sob,diaphoresis ROS: Review of Systems Constitutional: Negative for [...] by mouth daily., Disp: , Rfl: ??? lisinopril 10 MG tablet, Take 1 tablet (10 mg total) by mouth daily., Disp: 30 tablet, Rfl: 3 ??? metFORMIN 500 MG tablet, Take 1 [...] High school graduate Occupational History ??? 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 Financial resource strain: Not [...] file Gets together: Not on file Attends jehovah's witness service: Not on file Active member of [...] developed and well-nourished. HENT: Head: Normocephalic. Eyes: Conjunctivae are normal. Pupils are equal, round, and reactive to light. Neck: No JVD present. Left side trapezius [...] Nursing note and vitals reviewed. Filed Vitals: 03/03/19 1048 BP: 116/68 Pulse: 79 SpO2: 98% Weight: 70 kg (154 lb 6.4 oz) Height: 5' 9 (1.753 m) Diagnoses/Impression: 1. Hypertension, unspecified type Recommendations and Plan: 1. Hypertension, unspecified type PCP: ETIENNE SANCHEZ MD 03/03/2019 NET PROFESSIONAL documented in this encounter Plan of Treatment Upcoming Encounters Date Type Department Care Team (Late st Contact Info) Description 06/09/2024 4:20 PM CABINET PROFESSIONAL Office Visit [facility] Medical Group Family & Internal Medicine [facility] [id number] [place] [address] Etienne Sanchez MD [address] [place] [address] Scheduled Referrals Name Type Priority Associated Diagnoses Orde r Schedule Ambulatory referral to Orthopedics (OTHER) Referral Routine Rupture of pectoralis major muscle, initial encounter Ordered: 03/03/2019 documented as of this encounter Visit Diagnoses Diagnosis Hypertension, unspecified type- Primary Type 2 diabetes mellitus without complication, with long-term current use of insulin ([facility]/HCC) Rupture of pectoralis major muscle, initial encounter documented in this encounter Care Teams Emulsion Coater Relationship Specialty [place] [address] [place] [address] PCP - General FAMILY PRACTICE 02/27/18 documented as of this encounter
--- OUTSIDE RECORDS SUMMARY | 2024-04-27 18:25 | XMS_ITS | Encounter Summary ---
Author Organization [facility] Address [address] [place] [address]. [place] [address] [place] [address] Care Team Providers Care Cream Cheese Maker Name Role Phone Etienne Sanchez MD Primary Care Provider [phone] Reason for Visit * Reason Onset Date Comments Refill Request 09/16/2019 Encounter Details Date Type Department Care Team (Late st Contact Info) Description 09/16/2019 Telephone [facility] Family & Internal Medicine [facility] [id number] [place] [address] Et[place] Sanchez [place] [id number] [place] [address] Refill Request Social History Tobacco Use Types Packs/Day Years [...] Sexual Orientation Straight 03/28/2018 4: 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 No / Unsure 09/26/2019 9:41 AM CDT documented as of this encounter Progress Notes * Nishi Mota RN - 09/26/2019 11:16 AM CDTAddended by: NISHI MOTA on: 09/26/2019 11:16 AM Modules accepted: Orders * Nihsi Mota RN - 09/26/2019 11:16 AM CDT Pt had apt today. Rx's sent. * Perla Garcia - 09/16/2019 1:01 PM CDT Left detailed VM in regards to F/U appt * Nishi Mota RN - 09/16/2019 12:53 PM CDT Pt due for apt. Please call. Thanks! * Earlene Vasquez - 09/16/2019 11:13 AM CDT Medication and strength: Metformin 500mg/Lisinopril 10mg /90 day supply Pharmacy:[facility] Call back #: [phone] Last office visit at this office: Last visit with ETIENNE SANCHEZ in FAMILY PRACTICE was on: 06/12/2019 in [facility] Future appointment scheduled: No future appointments. documented in this encounter Plan of Treatment Upcoming Encounters Date Type Department Care Team (Late st Contact Info) Description 06/09/2024 4:20 PM SUBSCRIPTION AGENT Office Visit [facility] Family & Internal Medicine [address] [place] [address] [place] [address] [place] [address] documented as of this encounter Visit Diagnoses Diagnosis Hypertension, unspecified type- Primary Type 2 diabetes mellitus without complication, with long-term current use of insulin ([facility]) documented in this encounter Care Teams Cream Cheese Maker Relationship Specialty [place] [address] [place] [address] PCP - General FAMILY PRACTICE 02/27/18 documented as of this encounter
--- OUTSIDE RECORDS SUMMARY | 2024-04-27 18:25 | XMS_ITS | Encounter Summary ---
Author Organization [facility] Address [address] [place] [address]. 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 No / Unsure 11/13/2019 9:43 AM CDT documented as of this encounter Plan of Treatment Upcoming Encounters Date Type Department Care Team (Late st Contact Info) Description 06/09/2024 4:20 PM MATH AND PHYSICS INSTRUCTOR Office Visit [facility] Family & Internal Medicine [address] [place] [address] [place] [address] [place] [address] documented as of this encounter Visit Diagnoses Not on filedocumented in this encounter Care Teams Load Builder Relationship Specialty Start [place] [address] [place] [address] PCP - General FAMILY PRACTICE 02/27/18 documented as of this encounter
--- OUTSIDE RECORDS SUMMARY | 2024-04-27 18:25 | XMS_ITS | Encounter Summary ---
Author Organization [facility] Address [address] [place] [address]. [place] [address] [place] [address] Care Team Providers Care Program Rep Name Role Phone León Sanchez MD Primary Care Provider [phone] Reason for Visit * Reason Onset Date Comments Medication 06/11/2020 Encounter Details Date Type Department Care Team (Late st Contact Info) Description 06/11/2020 Telephone [facility] Family & Internal Medicine [facility] [address] [place] [address] León Sanchez [place] [id number] [place] [address] Medication Social History Tobacco Use Types Packs/Day Years [...] Sexual Orientation Straight 03/28/2018 4: 44 PM DOCUMENTATION WRITER 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 No / Unsure 05/21/2020 3:53 PM DOCUMENTATION WRITER documented as of this encounter Progress Notes * Tahmina Merida MA - 06/11/2020 3:31 PM CST Spoke with rodolfo and advised that he is to start taking 2 pills 2 times daily rx sent to pharmacy. V/U MENTATION WRITER * Cris Lu - 06/11/2020 2:30 PM CST Rodolfo called is asking about metformin. States when he had cancer it was dropped down to 1 tablet 2x a day. Rodolfo is asking if this needs to be increased as he has put his weight back on and sugar levels are up. 2 tablets 2x's a day was the dosage before they decreased it. CB # [phone] Rodolfo MENTATION WRITER documented in this encounter Plan of Treatment Upcoming Encounters Date Type Department Care Team (Late st Contact Info) Description 06/09/2024 4:20 PM DOCUMENTATION WRITER Office Visit [facility] Medical Group Family & Internal Medicine - [address] [address] [place] [address] [place] [address] documented as of this encounter Visit Diagnoses Diagnosis Type 2 diabetes mellitus without complication, with long-term current use of insulin ([facility]) documented in this encounter Care Teams Program Rep Relationship Specialty Start Date End Date León Sanchez [place] [id number] [place] [address] PCP - General FAMILY PRACTICE 02/27/18 documented as of this encounter
--- OUTSIDE RECORDS SUMMARY | 2024-04-27 18:25 | XMS_ITS | Encounter Summary ---
Author Organization [facility] Address [address] [place] [address]. [place], [place] [address] [place] [address] Care Team Providers Care Tawer Name Role Phone Etienne Sanchez MD Primary Care Provider [phone] Reason for Referral * Surgical (Routine) - Closed Specialty Diagnoses / Procedures Referred By Hugo sharp Referred To Contact Surgery Services Diagnoses Cholecystolithiasis Procedures Case request operating room: LAPAROSCOPIC CHOLECYSTECTOMY Martin Neal MD Phone: tel: fax: [facility] [address] [place] [address] Phone: tel: fax: Referral ID Status Reason Start Date Expiration Date Visits Re quested Visits Authorized [id number] Closed 01/28/2019 02/29/2020 1 1 Reason for Visit * Reason Comments New Patient gallbladder * Consultation/Treatment (Urgent) - Closed Specialty Diagnoses / Procedures Referred By Hugo sharp Referred To Contact GENERAL SURGERY / SURGERY Diagn[place] [address] [place] [address] Phone: tel: fax: Martin Neal MD Phone: tel: fax: Referral ID Status Reason Start Date Expiration Date Visits Re quested Visits Authorized [id number] Closed 01/22/2019 02/23/2020 99 99 Encounter Details Date Type Department Care Team (Late st Contact Info) Description 01/27/2019 3:40 PM CDT Office Visit [facility] General Surgery [facility] [address] [facility], [address] [place] [address] [place] [address] [facility] [address] [place] [address] New Patient (gallbladder) Social History Tobacco Use Types Packs/Day Years [...] Sexual Orientation Straight 03/28/2018 4: 44 PM 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 Not on file Not on file documented as of this encounter Last Filed Vital Signs Vital Sign Reading Time Taken Comments Blood Pressure 160/108 01/27/2019 4:00 PM CDT Pulse 84 01/27/2019 4:00 PM CDT Temperature 37.1 ??C (98.8 ??F) 01/27/2019 4:00 PM CD T Respiratory Rate 20 01/27/2019 4:00 PM CDT Oxygen Saturation 98% 01/27/2019 4:00 PM CDT Inhaled Oxygen Concentration - - Weight 68.9 kg (152 lb) 01/27/2019 4:00 PM CDT Height 175.3 cm (5' 9 ) 01/27/2019 4:00 PM CDT Body Mass Index 22.45 01/27/2019 4:00 PM CDT documented in this encounter Progress Notes * Jennifer Orellana RN - 01/27/2019 3:40 PM CDT NPN for [facility], call reference #[id number] molly Rosales at [facility] * Martin Neal MD - 01/27/2019 3:40 PM CDT Reason for Visit: New Patient (gallbladder) History of Present Illness: Patient is a 58-year-old white male who is having severe epigastric pain. pain started in the morning and became so severe by the afternoon that he went to the emergency room at [facility]. Hewas found to have mildly elevated liver enzymes. CT scan was done which showed a stone in the neck of the gallbladder with signs suggestive of acute cholecystitis. He did not wish to have surgery at that time and he was discharged home and he since that time is felt much better. He does have a history of throat cancer status post radical neck dissection and postoperative chemoradiation. He is currently asymptomatic ROS: Review of Systems All other systems reviewed and are negative. Medications: Current Outpatient Medications: ??? aspirin 81 MG tablet, Take 1 tablet by mouth daily., Disp: , Rfl: ??? ciprofloxacin 500 MG tablet, Take 500 mg by mouth every 12 (twelve) hours., Disp: , Rfl: 0 ??? clobetasol 0.05 % Cream, Apply 1 Dose topically 2 (two) times daily., Disp: , Rfl: Allergies Allergen Reactions ??? Codeine Unknown ??? Propoxyphene Unknown Past Medical History: Diagnosis Date ??? Arthritis ??? 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 Diabetes mellitus (CMS/HCC) Past Surgical History: Procedure Laterality Date ??? ABDOMINAL SURGERY Social History Socioeconomic History ??? Marital status: Spouse name: Lisette ??? Number of children: 4 ??? Years of education: Not on file ??? Highest education level: High school graduate Occupational History ??? 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 Financial resource strain: Not [...] file Gets together: Not on file Attends zoroastrianism service: Not on file Active member of [...] completed treatments, still goes for scans Family History Problem Relation Name Age of Onset ??? Arthritis Mother ??? Hypertension Mother ??? Hyperlipidemia Mother ??? Stroke Mother ??? CHF Mother ??? Cancer Mother ??? Diabetes Father Family Status Relation Name Status ??? Mother ??? Father Physical Exam Neck: S/p left radical neck dissection Cardiovascular: Normal rate, regular rhythm and normal heart sounds. Pulmonary/Chest: Effort normal and breath sounds normal. Abdominal: Soft. Bowel sounds are normal. He exhibits no distension and no mass. There is no tenderness. There is no rebound and no guarding. No hernia. Filed Vitals: 01/27/19 1600 BP: (!) 160/108 Pulse: 84 Resp: 20 Temp: 98.8 ??F (37.1 ??C) TempSrc: Oral SpO2: 98% Weight: 68.9 kg (152 lb) Height: 5' 9 (1.753 m) PainSc: 0 (0-10 Scale) Diagnoses/Impression: 1. Cholecystolithiasis CASE REQUEST OPERATING ROOM CANCELED: MRSA SCREENING 2. Calculus of gallbladder with acute cholecystitis and obstruction Recommendations and Plan: Is a patient is currently asymptomatic he was and likely passed a stone. However we still recommendthat he have a laparoscopic cholecystectomy as he is likely to have recurrence. The procedure explained the patient in detail along with all attendant risk and complications including but not limitedto those noted within the educational pamphlet which was reviewed and given to the patient. Risks in clude bleeding, infection, injury to adjacent organs and structures, common bile duct injury, retained common bile duct stone, postoperative bile leak. The need for postoperative ERCP, and conversionto an open procedure. Patient understood the risks and wishes to proceed he is going to check his schedule and let us know when to schedule his surgery. MARTIN NEAL Referring Provider: Etienne Sanchez PCP: ETIENNE SANCHEZ MD documented in this encounter Plan of Treatment Upcoming Encounters Date Type Department Care Team (Late st Contact Info) Description 06/09/2024 4:20 PM NETWORK OPERATIONS CENTER ENGINEER Office Visit [facility] Family & Internal Medicine - [place] [address] [place] [address] [place] [address] [place] [address] documented as of this encounter Visit Diagnoses Diagnosis Cholecystolithiasis- Primary Calculus of gallbladder without mention of cholecystitis or obstruction Calculus of gallbladder with acute cholecystitis and obstruction documented in this encounter Care Teams Tawer Relationship Specialty [place] [address] [place] [address] PCP - General FAMILY PRACTICE 02/27/18 documented as of this encounter
--- OUTSIDE RECORDS SUMMARY | 2024-04-27 18:25 | XMS_ITS | Encounter Summary ---
Author Organization [facility] Address [address] [place] [address]. [place] [address] [place] [address] Care Team Providers Care Container Finishing Inspector Name Role Phone Etienne Sanchez MD Primary Care Provider [phone] Reason for Visit * Reason Onset Date Comments Refill Request 08/29/2019 Encounter Details Date Type Department Care Team (Late st Contact Info) Description 08/29/2019 Telephone [facility] Family & Internal Medicine [facility] [address] [place] [address] Etienne Sanchez [place] [id number] [place] [address] Refill Request Social History Tobacco Use [...] 02/14 PHQ-2 Answer Date Recorded PHQ-2 Score 0 03/23/2019 Education Answer Date Recorded What is the highest level of school you have completed or the highest degree you have received? 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 Pt needs to avoid fatty foods and can give something for pain if needed. Called pt and informed him of this. He v/u. States the pain is a lot better today than yesterday. States he was supposed to have his GB out end of last year, but his bp was too high. States then all this Covid came about and it got pushed off longer. Informed pt that general surgery is going to open up next week so hopefully pt can get in again and get this taken out. * Earlene Vasquez - 08/29/2019 12:44 PM CDT Medication and strength: Pt gallbladder is acting up pt would like some ABX Pharmacy: [email or web address] Call back #: [phone] Last office visit at this office: Last visit with ETIENNE SANCHEZ in FAMILY PRACTICE was on: 06/12/2019 in [facility] Future appointment scheduled: No future appointments. documented in this encounter Plan of Treatment Upcoming Encounters Date Type Department Care Team (Late st Contact Info) Description 06/09/2024 4:20 PM CSR TECHNICIAN Office Visit [facility] Family & Internal Medicine [facility] [address] [place] [address] [place] [address] [place] [address] documented as of this encounter Visit Diagnoses Not on filedocumented in this encounter Care Teams Container Finishing Inspector Relationship Specialty Start [place] [address] [place], [place] [id number] PCP - General FAMILY PRACTICE 02/27/18 documented as of this encounter
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
--- OUTSIDE RECORDS SUMMARY | 2024-04-27 18:25 | XMS_ITS | Encounter Summary ---
Author Organization [facility] Address [address] [place] [address]. 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 No / Unsure 05/21/2020 3:53 PM FREEDOM OF INFORMATION OFFICER documented as of this encounter Plan of Treatment Upcoming Encounters Date Type Department Care Team (Late st Contact Info) Description 06/09/2024 4:20 PM FREEDOM OF INFORMATION OFFICER Office Visit [facility] Medical [facility] Family & Internal Medicine [address] [place] [address] [place] [address] [place] [address] documented as of this encounter Visit Diagnoses Not on filedocumented in this encounter Care Teams Severity Of Illness Coordinator Relationship Specialty Start [place] [address] [place] [address] PCP - General FAMILY PRACTICE 02/27/18 documented as of this encounter
--- OUTSIDE RECORDS SUMMARY | 2024-04-27 18:25 | XMS_ITS | Encounter Summary ---
Author Organization [facility] Address [address] [place] [address]. [place] [address] [place] [address] Care Team Providers Care Parts Counter Associate Name Role Phone Etienne Sanchez MD Primary Care Provider [phone] Reason for Visit * Reason Comments Bleeding/Bruising bruised right foot Encounter Details Date Type Department Care Team (Late st Contact Info) Description 06/12/2019 4:20 PM INDUSTRIAL RELATIONS REPRESENTATIVE Office Visit [facility] Family & Internal Medicine [facility] [address] [place] [phone] Etienne Sanchez [place] [id number] [place] [address] Bleeding/Bruising (bruised right foot) Social History Tobacco Use Types Packs/Day Years [...] Sexual Orientation Straight 03/28/2018 4: 44 PM INDUSTRIAL RELATIONS REPRESENTATIVE 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 Not on file Not on file documented as of this encounter Last Filed Vital Signs Vital Sign Reading Time Taken Comments Blood Pressure 182/96 06/12/2019 4:45 PM INDUSTRIAL RELATIONS REPRESENTATIVE Pulse 80 06/12/2019 4:31 PM INDUSTRIAL RELATIONS REPRESENTATIVE Temperature 37.2 ??C (99 ??F) 06/12/2019 4:31 PM INDUSTRIAL RELATIONS REPRESENTATIVE Respiratory Rate 20 06/12/2019 4:31 PM INDUSTRIAL RELATIONS REPRESENTATIVE Oxygen Saturation 90% 06/12/2019 4:31 PM INDUSTRIAL RELATIONS REPRESENTATIVE Inhaled Oxygen Concentration - - Weight 71.1 kg (156 lb 12.8 oz) 06/12/2019 4:31 PM INDUSTRIAL RELATIONS REPRESENTATIVE Height - - Body Mass Index 23.16 03/03/2019 10:48 AM INDUSTRIAL RELATIONS REPRESENTATIVE documented in this encounter Patient Instructions * Patient Instructions* Etienne Sanchez MD - 06/12/2019 4:20 PM INDUSTRIAL RELATIONS REPRESENTATIVE Pt was sent to xray and will await its reading for now keep elevated, ice and mild compression STRIAL RELATIONS REPRESENTATIVE documented in this encounter Progress Notes * Etienne Sanchez MD - 06/12/2019 4:20 PM CST Images from the original note were not included. Office Progress Note Reason for Visit: Bleeding/Bruising (bruised right foot) History of Present Illness: HPI Pt was stomping carrots and now with tender swollen ecchymotic right foot with no paresthesia, deformity, coolness ROS: Review of Systems Constitutional: Negative for malaise/fatigue and weight loss. Respiratory: Negative for shortness of breath. Cardiovascular: Negative for claudication and leg swelling. Musculoskeletal: Positive for joint pain. Negative for back pain. Skin: Negative for rash. Neurological: Negative [...] Substance Use Topics ??? Alcohol use: No Frequency: Never ??? Drug use: No Family History: Family History Problem Relation Name Age of Onset ??? Arthritis Mother ??? Hypertension Mother ??? Hyperlipidemia Mother ??? Stroke Mother ??? CHF Mother ??? Cancer Mother ??? Diabetes Father PE: Physical Exam Constitutional: He is oriented to person, place, and time. He appears well- developed and well-nourished. HENT: Head: Normocephalic. Eyes: Conjunctivae are normal. Cardiovascular: Normal rate, regular rhythm and intact distal pulses. Pulmonary/Chest: Effort normal. He has no rales. Musculoskeletal: He exhibits edema and tenderness. Neurological: He is alert and oriented to person, place, and time. Skin: Skin is warm. Dorsal right foot with large ecchymosis and swelling extending to hind foot Psychiatric: He has a normal mood and affect. His behavior is normal. Nursing note and vitals reviewed. Filed Vitals: 06/12/19 1631 06/12/19 1645 BP: (!) 184/92 (!) 182/96 Pulse: 80 Resp: 20 Temp: 99 ??F (37.2 ??C) TempSrc: Oral SpO2: 90% Weight: 71.1 kg (156 lb 12.8 oz) PainSc: 2 Mild Pain (0-10 Scale) Body mass index is 23.16 kg/m??. Diagnoses/Impression: 1. Right foot pain XR FOOT RT 3V Recommendations and Plan: There are no Patient Instructions on file for this visit. PCP: ETIENNE SANCHEZ MD 06/12/2019 STRIAL RELATIONS REPRESENTATIVE documented in this encounter Plan of Treatment Upcoming Encounters Date Type Department Care Team (Late st Contact Info) Description 06/09/2024 4:20 PM INDUSTRIAL RELATIONS REPRESENTATIVE Office Visit [facility] Medical [facility] Family & Internal Medicine [facility] [address] [place] [address] [place] [address] [place], [place] [id number] documented as of this encounter Results * XR FOOT RT 3V (06/12/2019 5:02 PM INDUSTRIAL RELATIONS REPRESENTATIVE) Anatomical Region Laterality Modality Foot Radiographic Keshia ging 06/13/2019 8:40 AM INDUSTRIAL RELATIONS REPRESENTATIVE Impressions 06/13/2019 8:40 AM INDUSTRIAL RELATIONS REPRESENTATIVE IMPRESSION: No evidence of acute fracture, dislocation, or radiopaque foreign body. Inferior calcaneal spur. Interpreted By: Daryl Weir, 06/13/2019 8:40 AM Narrative 06/13/2019 8:40 AM INDUSTRIAL RELATIONS REPRESENTATIVE IMAGING STUDIES: XR FOOT RT 3V DATE: 06/12/2019 4:52 PM INDICATION: pain ? COMPARISON: No comparisons. TECHNIQUE: 3 views Procedure Note Daryl Weir MD - 06/13/2019 IMAGING STUDIES: XR FOOT RT 3V DATE: 06/12/2019 4:52 PM INDICATION: pain COMPARISON: No comparisons. TECHNIQUE: 3 views IMPRESSION: No evidence of acute fracture, dislocation, or radiopaque foreign body. Inferior calcaneal spur. Interpreted By: Daryl Weir, 06/13/2019 8:40 AM Etienne Sanchez MD GENERAL IMAGING Final Resul t documented in this encounter Visit Diagnoses Diagnosis Right foot pain- Primary Pain in limb Right foot pain Pain in limb documented in this encounter Care Teams Parts Counter Associate Relationship Specialty [place] [address] [place], [place] [id number] PCP - General FAMILY PRACTICE 02/27/18 documented as of this encounter
--- OUTSIDE RECORDS SUMMARY | 2024-04-27 18:25 | XMS_ITS | Encounter Summary ---
Author Organization [facility] Address Formerly [facility] [place] [address] [place] [address] Care Team Providers Care Machine I Engraver Name Role Phone León Sanchez MD Primary Care Provider [phone] Reason for Visit * Auth/Cert Specialty Diagnoses / Procedures Referred By Hugo sharp Referred To Contact Diagnoses Cholecystolithiasis cholecystitis Procedures LAPAROSCOPIC CHOLECYSTECTOMY Referral ID Status Reason Start Date Expiration Date Visits Re quested Visits Authorized [id number] 1 1 Encounter Details Date Type Department Care Team (Latest Contact Info) Description 02/24/2019 5:49 AM CIVIL CADD TECHNICIAN - 02/24/2019 8:00 AM CIVIL CADD TECHNICIAN Hospital Encounter [facility] [address] [place] [address] [place] [address] 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 Not on file Not on file documented as of this encounter Last Filed Vital Signs Vital Sign Reading Time Taken Comments Blood Pressure 219/94 02/24/2019 7:09 AM CIVIL CADD TECHNICIAN Pulse 74 02/24/2019 6:00 AM CIVIL CADD TECHNICIAN Temperature 36.7 ??C (98 ??F) 02/24/2019 6:00 AM CIVIL CADD TECHNICIAN Respiratory Rate 16 02/24/2019 6:00 AM CIVIL CADD TECHNICIAN Oxygen Saturation 99% 02/24/2019 6:00 AM CIVIL CADD TECHNICIAN Inhaled Oxygen Concentration - - Weight 68.5 kg (151 lb) 02/24/2019 6:00 AM CIVIL CADD TECHNICIAN Height 175.3 cm (5' 9 ) 02/24/2019 6:00 AM CIVIL CADD TECHNICIAN Body Mass Index 22.3 02/24/2019 6:00 AM CIVIL CADD TECHNICIAN documented in this encounter Nursing Notes * Belkys Johnston RN - 02/24/2019 7:45 AM CST Pt's blood pressure and blood glucose level elevated. and Anesthesia aware. Surgery cancelled, instructed pt to follow up with . L CADD TECHNICIAN documented in this encounter Plan of Treatment Upcoming Encounters Date Type Department Care Team (Late st Contact Info) Description 06/09/2024 4:20 PM CIVIL CADD TECHNICIAN Office Visit [facility] Medical Group Family & Internal Medicine [address] [address] León Sanchez MD [address] [place] [address] documented as of this encounter Procedures Procedure Name Priority Date/Time Associated Diagnosis Comments POCT GLUCOSE - ROMO DOCKED DEVICE Routine 02/24/2019 7:08 AM CIVIL CADD TECHNICIAN documented in this encounter Results * (ABNORMAL) POCT glucose (02/24/2019 7:08 AM CIVIL CADD TECHNICIAN) GLUCOSE POC 231(H) 70 - 110 mg/dL 02/25/2019 6:14 AM CIVIL CADD TECHNICIAN [facility] LAB ORDERS INTERFACE 02/24/2019 7:08 AM CIVIL CADD TECHNICIAN us Martin Littlejohn MD POCT ORDERABLES - DEVICE Final R esult [facility] LAB ORDERS INTERFACE US documented in this encounter Visit Diagnoses Diagnosis Cholecystolithiasis- Primary Calculus of gallbladder without mention of cholecystitis or obstruction documented in this encounter Admitting Diagnoses Diagnosis Cholecystolithiasis Calculus of gallbladder without mention of cholecystitis or obstruction documented in this encounter Administered Medications Inactive Administered Medications - up to 3 most recent administrations Medication Order MAR Action Action Date Dose Rate Site famotidine (PEPCID) injection 20 mg 20 mg, Intravenous, Once, 1 dose, On Sun02/24/19 at 0630, On admission IV Push over 2 minutes, Pre-Op Given 02/24/2019 6:18 AM CIVIL CADD TECHNICIAN 20 mg ondansetron (ZOFRAN) injection 4 mg 4 mg, Intravenous, Once, 1 dose, On Sun02/24/19 at 0630, On admission, Pre-Op Given 02/24/2019 6:18 AM CIVIL CADD TECHNICIAN 4 mg sodium chloride 0.9% infusion at 10 mL/hr, Intravenous, Continuous, Starting on Sun02/24/19 at 0630, Until Sun02/24/19 at 0912, Infuse at TKO rate. Use mini-drip tubing for ESRD patients., Pre-Op New Bag 02/24/2019 6:18 AM CIVIL CADD TECHNICIAN 10 mL/hr documented in this encounter Active and Recently Administered Medications Times are shown in CIVIL CADD TECHNICIAN. Scheduled Medication Order 02/22/2019 02/23/2019 02/24/2019 famotidine (PEPCID) injection 20 mg (COMPLETED) 20 mg, Intravenous, Once, 1 dose, On Sun02/24/19 at 0630, On admission IV Push over 2 minutes, Pre-Op 0618 (Given - Provid er: Belkys Johnston RN) lidocaine (XYLOCAINE) 1 % injection SOLN 0.3 mL 0.3 mL, Intradermal, Once, 1 dose, On Sun02/24/19 at 0630, Use to anesthetize IV site, Pre-Op 0630 (Canceled Entry - Provider: Automatic Discharge Provider - Comment: Automatically canceled at discontinue of medication order) ondansetron (ZOFRAN) injection 4 mg (COMPLETED) 4 mg, Intravenous, Once, 1 dose, On Sun02/24/19 at 0630, On admission, Pre-Op 0618 (Given - Provid er: Belkys Johnston, DORON) Continuous Medication Order 02/22/2019 02/23/2019 02/24/2019 sodium chloride 0.9% infusion at 10 mL/hr, Intravenous, Continuous, Starting on Sun02/24/19 at 0630, Until Sun02/24/19 at 0912, Infuse at TKO rate. Use mini-drip tubing for ESRD patients., Pre-Op 0618 (New Bag - Prov ider: Belkys Johnston RN) documented in this encounter Care Teams Machine I Engraver Relationship Specialty Start [place] [address] [place] [address] PCP - General FAMILY PRACTICE 02/27/18 documented as of this encounter
--- OUTSIDE RECORDS SUMMARY | 2024-04-27 18:25 | XMS_ITS | Encounter Summary ---
Author Organization [facility] Address [address] [place] [address]. [place], [place] [address] [place] [address] Care Team Providers Care Manager Managed Care Name Role Phone Etienne Sanchez MD Primary Care Provider [phone] Reason for Referral * (Routine) - Closed Specialty Diagnoses / Procedures Referred By Hugo sharp Referred To Contact Diagnoses Chronic pain of both knees Procedures Joint Aspiration/Injection Etienne Sanchez MD [address] [place] [address] Phone: tel: fax: Referral ID Status Reason Start Date Expiration Date Visits Re quested Visits Authorized [id number] Closed 11/16/2019 12/16/2020 1 1 * (Routine) - Closed Specialty Diagnoses / Procedures Referred By Hugo sharp Referred To Contact Diagnoses Chronic pain of both knees Procedures Joint Aspiration/Injection Etienne Sanchez MD [address] [place] [address] Phone: tel: fax: Referral ID Status Reason Start Date Expiration Date Visits Re quested Visits Authorized [id number] Closed 11/16/2019 12/16/2020 1 1 Reason for Visit * Reason Comments Procedure bilateral knee injec tion Encounter Details Date Type Department Care Team (Late st Contact Info) Description 11/13/2019 10:00 AM CDT Office Visit [facility] Medical Group Family & Internal Medicine [address] [phone] [place] [address] [place], [place] [phone] Procedure (bilateral knee injection) Social History Tobacco Use Types [...] Orientation Straight 03/28/2018 4: 44 PM SOCIAL WORK CASE MANAGER 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 No / Unsure 11/13/2019 9:43 AM CDT documented as of this encounter Last Filed Vital Signs Vital Sign Reading Time Taken Comments Blood Pressure 146/92 11/13/2019 9:45 AM CDT Pulse 83 11/13/2019 9:45 AM CDT Temperature 36.4 ??C (97.6 ??F) 11/13/2019 9:45 AM CD T Respiratory Rate - - Oxygen Saturation 98% 11/13/2019 9:45 AM CDT Inhaled Oxygen Concentration - - Weight 72 kg (158 lb 12.8 oz) 11/13/2019 9:45 AM CDT Height 175.3 cm (5' 9 ) 11/13/2019 9:45 AM CDT Body Mass Index 23.45 11/13/2019 9:45 AM CDT documented in this encounter Patient Instructions * Patient Instructions* Etienne Sanchez MD - 11/13/2019 10:00 AM CDT Rest ice as tolerated and gentle range of motion exercises and if any redness or fever to notify the office documented in this encounter Progress Notes * Etienne Sanchez MD - 11/13/2019 10:00 AM CDTAssociated Order(s): Joint Aspiration/Injection; Joint Aspiration/Injection Post-Procedure Diagnose(s): Chronic pain of both knees Images from the original note were not included. Office Progress Note Reason for Visit: Procedure (bilateral knee injection) History of Present Illness: HPI Pt with pmh of chronic knee pain with prior injections and presents for them today no change in pain and denies fever, erythema, rash, deformity, back or hip pain ROS: Review of Systems Constitutional: Negative for fever and weight loss. HENT: Negative for sore throat. Respiratory: Negative for shortness of breath. Cardiovascular: Negative for claudication and leg swelling. Gastrointestinal: Negative for nausea. Musculoskeletal: Positive for joint pain and myalgias. Skin: Negative for rash. Neurological: Negative for sensory change and focal weakness. Endo/Heme/Allergies: Does not bruise/bleed easily. Psychiatric/Behavioral: The patient does not have insomnia. Medications: Current Outpatient Medications: ??? amLODIPine 5 MG tablet, Take 1 tablet (5 mg total) by mouth daily., Disp: 30 tablet, Rfl: 2 ??? aspirin EC (ASPIRIN EC) 81 MG tablet, Take 81 mg by mouth daily., Disp: , Rfl: ??? diclofenac sodium 1 % gel, Apply 2 g topically 4 (four) times daily., Disp: , Rfl: ??? metFORMIN 500 MG tablet, Take 1 tablet (500 mg total) by mouth 2 (two) times daily with meals.,Disp: 180 tablet, Rfl: 0 Allergies: Allergies Allergen Reactions ??? Latex Rash ??? Codeine Unknown ??? Lisinopril Cough ??? Propoxyphene Unknown Medical History: Past Medical History: Diagnosis Date ??? Arthritis ??? 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 Diabetes mellitus ([facility]) Surgical History: Past [...] reactive to light. Conjunctivae are normal. Neck: Neck supple. No JVD present. Cardiovascular: Normal rate and intact distal pulses. Pulmonary/Chest: Effort normal. Musculoskeletal: Normal range of motion. He exhibits tenderness. He exhibits no edema. Neurological: He is alert and oriented to person, place, and time. Skin: Skin is warm. No rash noted. No erythema. Psychiatric: He has a normal mood and affect. His behavior is normal. Nursing note and vitals reviewed. Filed Vitals: 11/13/19 0945 BP: (!) 146/92 Pulse: 83 Temp: 97.6 ??F (36.4 ??C) SpO2: 98% Weight: 72 kg (158 lb 12.8 oz) Height: 5' 9 (1.753 m) Body mass index is 23.45 kg/m??. Joint Aspiration/Injection Date/Time: 11/16/2019 9:13 AM Performed by: Etienne Sanchez MD Authorized [...] lateral Triamcinolone amount: 40 mg Patient tolerance: Patient tolerated the procedure well with no immediate complications Joint Aspiration/Injection Date/Time: 11/16/2019 9:14 AM Performed by: Etienne Sanchez MD Authorized [...] lateral Triamcinolone amount: 40 mg Patient tolerance: Patient tolerated the procedure well with no immediate complications Diagnoses/Impression: No diagnosis found. Recommendations and Plan: There are no Patient Instructions on file for this visit. PCP: ETIENNE SANCHEZ MD 11/13/2019 documented in this encounter Plan of Treatment Upcoming Encounters Date Type Department Care Team (Late st Contact Info) Description 06/09/2024 4:20 PM SOCIAL WORK CASE MANAGER Office Visit [facility] Medical Group Family & Internal Medicine - [place] [phone] [place] [phone] Etienne Sanchez MD [address] [place] [address] documented as of this encounter Procedures Procedure Name Priority Date/Time Associated Diagnosis Comments JOINT ASPIRATION/INJECTIO N Routine 11/13/2019 10:00 AM CDT Chronic pain of both knees JOINT ASPIRATION/INJECTIO N Routine 11/13/2019 10:00 AM CDT Chronic pain of both knees documented in this encounter Results * Joint Aspiration/Injection (11/13/2019 10:00 AM CDT) Narrative Etienne Sanchez MD - 11/13/2019 10:00 AM CDT Etienne Sanchez MD ? 11/16/2019 ??9:16 AM Joint Aspiration/Injection Date/Time: 11/16/2019 9:14 AM Performed by: Etienne Sanchez MD Authorized [...] lateral Triamcinolone amount: 40 mg Patient tolerance: Patient tolerated the procedure well with no immediate complications Etienne Sanchez MD PROCEDURE/MINOR SURGICAL OR DERABLES Final Result * Joint Aspiration/Injection (11/13/2019 10:00 AM CDT) Etienne Baumann MD - 11/13/2019 10:00 AM CDT Etienne Sanchez MD ? 11/16/2019 ??9:16 AM Joint Aspiration/Injection Date/Time: 11/16/2019 9:13 AM Performed by: Etienne Sanchez MD Authorized [...] lateral Triamcinolone amount: 40 mg Patient tolerance: Patient tolerated the procedure well with no immediate [...] mg, Intra-articular, Once, 1 dose, On Iona 11/13/19 at 1045, Shake WellIndications:Chronic pain of both knees Given 11/13/2019 10:19 AM CDT 40 mg Rig ht Knee triamcinolone acetonide (KENALOG-40) injection 40 mg 40 mg, Intra-articular, Once, 1 dose, On Iona 11/13/19 at 1045, Shake WellIndications:Chronic pain of both knees Given 11/13/2019 10:18 AM CDT 40 mg Lef t Knee documented in this encounter Care Teams Manager Managed Care Relationship Specialty [place] [address] [place] [address] PCP - General FAMILY PRACTICE 02/27/18 documented as of this encounter
--- OUTSIDE RECORDS SUMMARY | 2024-04-27 18:25 | XMS_ITS | Encounter Summary ---
Author Organization [facility] Address [address] [place] [address]. [place], [place] [address] [place] [address] Care Team Providers Care Reference And Instruction Librarian Name Role Phone Etienne Sanchez MD Primary Care Provider [phone] Reason for Referral * (Routine) - Closed Specialty Diagnoses / Procedures Referred By Contac t Referred To Contact Diagnoses Chronic pain of both knees Procedures Joint Aspiration/Injection Etienne Sanchez MD [address] [place] [address] Phone: tel: fax: Referral ID Status Reason Start Date Expiration Date Visits Re quested Visits Authorized [id number] Closed 09/17/2020 10/17/2021 1 1 * (Routine) - Closed Specialty Diagnoses / Procedures Referred By Hugo sharp Referred To Contact Diagnoses Chronic pain of both knees Procedures Joint Aspiration/Injection Etienne Sanchez MD [address] [place] [address] Phone: tel: fax: Referral ID Status Reason Start Date Expiration Date Visits Re quested Visits Authorized [id number] Closed 09/17/2020 10/17/2021 1 1 Reason for Visit * Reason Comments Follow Up check up med refill Encounter Details Date Type Department Care Team (Late st Contact Info) Description 09/17/2020 9:00 AM CDT Office Visit [facility] Medical [facility] Family & Internal Medicine [address] [phone] [place] [address] [place] [address] Follow Up (check up med refill) Social History Tobacco Use Types Packs/Day Years [...] Sexual Orientation Straight 03/28/2018 4: 44 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 No / Unsure 10/01/2020 2:10 PM CDT documented as of this encounter Last Filed Vital Signs Vital Sign Reading Time Taken Comments Blood Pressure 178/104 09/17/2020 8:39 AM CDT Pulse 79 09/17/2020 8:39 AM CDT Temperature 36.7 ??C (98.1 ??F) 09/17/2020 8:39 AM CD T Respiratory Rate 18 09/17/2020 8:39 AM CDT Oxygen Saturation 98% 09/17/2020 8:39 AM CDT Inhaled Oxygen Concentration - - Weight 72.2 kg (159 lb 3.2 oz) 09/17/2020 8:39 A M CDT Height 175.3 cm (5' 9 ) 09/17/2020 8:39 AM CDT Body Mass Index 23.51 09/17/2020 8:39 AM CDT documented in this encounter Patient Instructions * Patient Instructions* Etienne Sanchez MD - 09/17/2020 9:00 AM CDT Ice as tolerated and gentle range of motion exercises and his hgba1-c is at 7.7 and will continue his diet. His blood pressure is elevated and he claims to be taking meds as directed will increase his norvasc to ten and advised to monitor his bp and if still greater than 140/90 to contact office documented in this encounter Progress Notes * Andreina Coon - 09/17/2020 9:00 AM CDTAddended by: ANDREINA COON on: 10/20/2020 11:19 AM Modules accepted: Orders * Etienne Sanchez MD - 09/17/2020 9:00 AM CDTAssociated Order(s): Joint Aspiration/Injection; Joint Aspiration/Injection Post-Procedure Diagnose(s): Chronic pain of both knees Images from the original note were not included. Office Progress Note Reason for Visit: Follow Up (check up med refill) History of Present Illness: Follow Up Associated [...] and has had injections in the past that havehelped and today is requesting them with no redness,warmth,and swelling ROS: Review of Systems Constitutional: Negative for [...] High school graduate Occupational History ??? 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 Smoking status: Never Smoker [...] Gatherings with Friends and Family: ??? Attends [employer] Services: ??? Active Member of Clubs or [...] Nursing note and vitals reviewed. Filed Vitals: 09/17/20 0839 BP: (!) 178/104 Pulse: 79 Resp: 18 Temp: 98.1 ??F (36.7 ??C) SpO2: 98% Weight: 72.2 kg (159 lb 3.2 oz) Height: 5' 9 (1.753 m) Joint Aspiration/Injection Date/Time: 09/17/2020 9:23 AM Performed by: Etienne Sanchez MD Authorized [...] with no immediate complications Joint Aspiration/Injection Date/Time: 09/17/2020 9:23 AM Performed by: Etienne Sanchez MD Authorized [...] complication, with long-term current use of insulin ([facility]) A1C (BACK OFFICE) 2. Dyslipidemia 3. Chronic pain of both knees lidocaine-EPINEPHrine injection 1 mL triamcinolone acetonide (KENALOG-40) injection 40 mg triamcinolone acetonide (KENALOG-40) injection 40 mg lidocaine-EPINEPHrine injection 1 mL Joint Aspiration/Injection Joint Aspiration/Injection 4. Hypertension, unspecified type Recommendations and Plan: 1. Hypertension, unspecified type PCP: ETIENNE SANCHEZ MD 09/17/2020 * Etienne Sanchez MD - 09/17/2020 9:00 AM CDT Much improved hgba1-c continue present diet and no change to medications * Nishi Topete RN - 09/17/2020 9:00 AM CDT This result is from 1 month ago. Pt aware of results. documented in this encounter Plan of Treatment Upcoming Encounters Date Type Department Care Team (Late st Contact Info) Description 06/09/2024 4:20 PM RF MICROWAVE ENGINEER Office Visit [facility] Medical Group Family & Internal Medicine [address] [phone] Etienen Sanchez MD [address] [place] [address] [phone] (work) documented as of this encounter Procedures Procedure Name Priority Date/Time Associated Diagnosis Comments COLLECT.CAPILLARY (FNGR,HEEL,EAR) Routine 10/20/2020 11:19 AM CDT Type 2 diabetes mellitus without complication, with long-term current use of insulin ([facility]) JOINT ASPIRATION/INJECTION Routine 09/17/2020 9:00 AM CDT Chronic pain of both knees JOINT ASPIRATION/INJECTION Routine 09/17/2020 9:00 AM CDT Chronic pain of both knees HEMOGLOBIN, GLYCOSYLATED Routine 09/17/2020 Type 2 diabetes mellitus without complication, with long-term current use of insulin ([facility]) documented in this encounter Results * Joint Aspiration/Injection (09/17/2020 9:00 AM CDT) Narrative Etienne Sanchez MD - 09/17/2020 9:00 AM CDT Etienne Sanchez MD ? 09/17/2020 ??9:27 AM Joint Aspiration/Injection Date/Time: 09/17/2020 9:23 AM Performed by: Etienne Sanchez MD Authorized [...] OR DERABLES Final Result * Joint Aspiration/Injection (09/17/2020 9:00 AM CDT) Etienne Baumann MD - 09/17/2020 9:00 AM CDT Etienne Sanchez MD ? 09/17/2020 ??9:27 AM Joint Aspiration/Injection Date/Time: 09/17/2020 9:23 AM Performed by: Etienne Sanchez MD Authorized [...] PROCEDURE/MINOR SURGICAL OR DERABLES Final Result * A1C (BACK OFFICE) (09/17/2020) HGB A1C 7.7 % -96525 [facility] 09/17/2020 Etienne Sanchez MD LABORATORY Final Resul t Performing Organization Address City/State/[facility] Co de Phone Number [phone] [address] [place] [address] [place] [address], documented in this encounter Visit Diagnoses Diagnosis Type 2 diabetes mellitus without complication, with long-term current use of insulin ([facility])- Primary Dyslipidemia Other and unspecified hyperlipidemia Chronic pain of both knees Hypertension, unspecified type documented in this encounter Administered Medications Inactive Administered Medications - up to 3 most recent administrations Medication Order MAR Action Action Date Dose Rate Site lidocaine-EPINEPHrine injection 1 mL 1 mL, Other, Once, 1 dose, On Sun09/17/20 at 0930Indications:Chronic pain of both knees Given 09/17/2020 9:14 AM CDT 1 mL Righ t Knee lidocaine-EPINEPHrine injection 1 mL 1 mL, Other, Once, 1 dose, On Sun09/17/20 at 0930Indications:Chronic pain of both knees Given 09/17/2020 9:13 AM CDT 1 mL Left Knee triamcinolone acetonide (KENALOG-40) injection 40 mg 40 mg, Intra-articular, Once, 1 dose, On Sun09/17/20 at 0930, Augustin ColinIndications:Chronic pain of both knees Given 09/17/2020 9:16 AM CDT 40 mg Righ t Knee triamcinolone acetonide (KENALOG-40) injection 40 mg 40 mg, Intra-articular, Once, 1 dose, On Sun09/17/20 at 0930, Augustin WellIndications:Chronic pain of both knees Given 09/17/2020 9:15 AM CDT 40 mg Left Knee documented in this encounter Additional Health Concerns Assessment Noted Time PHQ-9 Depression Total Score: 0 09/18/19 8:43 AM CDT documented as of this encounter Care Teams Reference And Instruction Librarian Relationship Specialty [place] [address] [place] [address] PCP - General FAMILY PRACTICE 02/27/18 documented as of this encounter
--- OUTSIDE RECORDS SUMMARY | 2024-04-27 18:25 | XMS_ITS | Encounter Summary ---
Author Organization [facility] Address [address] [place] [address]. 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
--- OUTSIDE RECORDS SUMMARY | 2024-04-27 18:25 | XMS_ITS | Encounter Summary ---
Author Organization [facility] Address [address] [place] [address]. 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 Not on file Not on file documented as of this encounter Plan of Treatment Upcoming Encounters Date Type Department Care Team (Late st Contact Info) Description 06/09/2024 4:20 PM SPEAR FISHER Office Visit [facility] Medical Group Family & Internal Medicine [facility] [address] [place] [address] [place] [address] [place] [address] documented as of this encounter Procedures Procedure Name Priority Date/Time Associated Diagnosis Comments PLATELET FUNCTION ASSAY Routine 02/20/2019 7:30 AM SPEAR FISHER Preop testing HEPATIC FUNCTION PANEL Routine 02/20/2019 7:30 AM SPEAR FISHER Preop testing documented in this encounter Results * PLATELET FUNCTION ASSAY (02/20/2019 7:30 AM SPEAR FISHER) [facility] EPINEPHRINE (PLT FUNCT) 163 80 - 184 SEC 02/20/2019 8:47 AM SPEAR FISHER [facility] COLLAGEN / ADP COL/ADP NOT NEEDED. 56 - 102 SEC 02/20/2019 8:47 AM SPEAR FISHER [facility] Comment: NORMAL COLLAGEN/EPI INDICATES NORMAL PLATELET FUNCTION. 02/20/2019 7:30 AM SPEAR FISHER us Martin Littlejohn MD LABORATORY Final Result [facility] [address] [place] [address], * HEPATIC FUNCTION PANEL (02/20/2019 7:30 AM SPEAR FISHER) [facility] TOTAL PROTEIN S/P/B 6.6 6.4 - 8.2 G/DL 02/20/2019 9:03 AM SPEAR FISHER [facility] ALBUMIN S/P/B 3.7 3.4 - 5.0 G/DL 02/20/2019 9:03 AM [facility] BILIRUBIN TOTAL S/P/B 0.9 0.2 - 1.2 MG/DL 02/20/2019 9:03 AM [facility] BILIRUBIN DIRECT S/P/B 0.1 0.0 - 0.20 MG/DL 02/20/2019 9:03 AM [facility] BILIRUBIN INDIRECT S/P/B 0.8 0.0 - 0.9 MG/DL 02/20/2019 9:03 AM [facility] ALKALINE PHOSPHATASE S/P/B 83 50 - 136 U/L 02/20/2019 9:03 AM [facility] AST 24 15 - 37 U/L 02/20/2019 9:03 AM [facility] ALT 25 16 - 60 U/L 02/20/2019 9:03 AM [facility] A/G RATIO 1.3 1.0 - 2.0 RATIO 02/20/2019 9:03 AM [facility] 02/20/2019 7:30 AM SPEAR FISHER us Martin Littlejohn MD LABORATORY Final Result [facility] [address] [place] [address], documented in this encounter Visit Diagnoses Diagnosis Preop testing Preoperative examination, unspecified documented in this encounter Care Teams Claim Professional Relationship Specialty Start [place] [address] [place] [address] PCP - General FAMILY PRACTICE 02/27/18 documented as of this encounter
--- OUTSIDE RECORDS SUMMARY | 2024-04-27 18:25 | XMS_ITS | Encounter Summary ---
Author Organization [facility] Address [address] [place] [address]. 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) documented in this encounter Care Teams Correctional Officer Chief Relationship Specialty Start [place] [address] [place] [address] PCP - General FAMILY PRACTICE 02/27/18 documented as of this encounter
--- OUTSIDE RECORDS SUMMARY | 2024-04-27 18:25 | XMS_ITS | Encounter Summary ---
Author Organization [facility] Address [address] [place] [address]. 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 [address] [place] [address] [place] [address] [place] [address] documented as of this encounter Visit Diagnoses Diagnosis Type 2 diabetes mellitus without complication, with long-term current use of insulin ([facility]) documented in this encounter Care Teams Parking Garage Manager Relationship Specialty Start [place] [address] [place] [address] PCP - General FAMILY PRACTICE 02/27/18 documented as of this encounter
--- OUTSIDE RECORDS SUMMARY | 2024-04-27 18:25 | XMS_ITS | Encounter Summary ---
Author Organization [facility] Address [address] [place] [address]. [place] [address] [place] [address] Care Team Providers Care Field Laboratory Operator Name Role Phone Etienne Sanchez MD Primary Care Provider [phone] Reason for Visit * Reason Onset Date Comments Refill Request 05/11/2020 Encounter Details Date Type Department Care Team (Late st Contact Info) Description 05/11/2020 Telephone [facility] Medical Group Family & Internal Medicine [facility] [address] [place] [address] [place] [address] [place] [address] Refill Request Social History Tobacco Use [...] Sexual Orientation Straight 03/28/2018 4: 44 PM 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 Rx sent to pharmacy. TIAN BLIND MAKER * Perla Garcia - 05/11/2020 3:44 PM CST Pt said he is unable to come in within the next few weeks his son is in the hospital at [place] he only has 1 pill left please advise they are at the hospital every day. TIAN BLIND MAKER * Nishi Topete RN - 05/11/2020 3:34 PM CST Pt due for apt to be seen. Please call him. Thanks! TIAN BLIND MAKER * Earlene Vasquez - 05/11/2020 3:16 PM CST Medication and strength: amlodipine 5mg [facility] Call back #: [phone] Last office visit at this office: Last visit with ETIENNE SANCHEZ in FAMILY PRACTICE was on: 11/13/2019 in [facility] Future appointment scheduled: No future appointments. TIAN BLIND MAKER documented in this encounter Plan of Treatment Upcoming Encounters Date Type Department Care Team (Late st Contact Info) Description 06/09/2024 4:20 PM VENETIAN BLIND MAKER Office Visit [facility] Medical Group Family & Internal Medicine [facility] [address] [place] [address] [place] [address] [place] [address] documented as of this encounter Visit Diagnoses Diagnosis Hypertension, unspecified type documented in this encounter Care Teams Field Laboratory Operator Relationship Specialty [place] [address] [place] [address] PCP - General FAMILY PRACTICE 02/27/18 documented as of this encounter
--- OUTSIDE RECORDS SUMMARY | 2024-04-27 18:25 | XMS_ITS | Encounter Summary ---
Author Organization [facility] Address [address] [place] [address]. [place] [address] [place] [address] Care Team Providers Care Principal Investigator Name Role Phone León Sanchez MD Primary Care Provider [phone] Reason for Visit * Reason Onset Date Comments Medication Problem 01/31/2019 Encounter Details Date Type Department Care Team (Late st Contact Info) Description 01/31/2019 Telephone [facility] Medical Group Family & Internal Medicine [facility] [address] [place] [address] León Sanchez [place] [id number] [place] [address] Medication Problem Social History Tobacco Use Types Packs/Day Years [...] Sexual Orientation Straight 03/28/2018 4: 44 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 Called in [place] and informed them of this. They v/u. * Earlene Vasquez - 02/13/2019 11:44 AM CDT Prudence from [facility] called back about pre autho on diclosenac 1% gel [phone] Please call * Nishi Topete RN - 01/31/2019 3:40 PM CDT Called pharmacy and they state that we will need to do prior auth on this medication on cover my meds for this medication to get approved. * Nishi Topete RN - 01/31/2019 1:[address] Sanchez, pt has tried Ibuprofen and Naproxen. Tried to call [facility] pharmacy and message states pharmacy is closed at this time for lunch and will reopen at 2pm. Will call again later. * Brittany Silverman - 01/31/2019 11:44 AM CDT Prudence called from [facility] in [place]. She needs to know if hes tried 2 generic prescription strength NSAIDS. C/B# [phone] documented in this encounter Plan of Treatment Upcoming Encounters Date Type Department Care Team (Late st Contact Info) Description 06/09/2024 4:20 PM OUTSIDE INSTALLER APPRENTICE Office Visit [facility] Medical Group Family & Internal Medicine - [place] [address] [place] [address] León Sanchez [place] [id number] [place], [place] [address] [address] documented as of this encounter Visit Diagnoses Not on filedocumented in this encounter Care Teams Principal Investigator Relationship Specialty Start [place] [address] [facility] [place] [address] PCP - General FAMILY PRACTICE 02/27/18 documented as of this encounter
--- OUTSIDE RECORDS SUMMARY | 2024-04-27 18:25 | XMS_ITS | Encounter Summary ---
Author Organization [facility] Address [address] [place] [address]. [place], [place] [address] [place] [address] Care Team Providers Care Supervisor Last Model Department Name Role Phone León Sanchez MD Primary Care Provider [phone] Reason for Referral * Consultation/Treatment (Urgent) - Closed Specialty Diagnoses / Procedures Referred By Hugo t Referred To Contact GENERAL SURGERY / SURGERY Diagnoses [place] [address] [place] [address] Phone: tel: fax: Martin Littlejohn MD Phone: tel: fax: Referral ID Status Reason Start Date Expiration Date Visits Re quested Visits Authorized [id number] Closed 01/22/2019 02/23/2020 99 99 Reason for Visit * Reason Onset Date Comments Results 01/21/2019 Encounter Details Date Type Department Care Team (Late st Contact Info) Description 01/21/2019 Telephone [facility] Medical Group Family & Internal Medicine [facility] [address] [place] [address] [place] [address] [place] [address] Results Social History Tobacco Use Types Packs/Day Years [...] Sexual Orientation Straight 03/28/2018 4: 44 PM 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 * Nishi Topete RN - 01/22/2019 8:[address] Sanchez, refer pt to Dr Littlejohn for gallbladder. Referral placed and pt will hear something from their office in regards to an apt. LVM for pt or to call office. When she returns call, please inform her of this. Thanks! * Sandra Vazquez LPN - 01/21/2019 1:32 PM CDT Pt vicky called pt has not heard back from Dr. Sanchez about what to do about U/S gallbladder that was done [phone] Has appt on for left knee documented in this encounter Plan of Treatment Upcoming Encounters Date Type Department Care Team (Late st Contact Info) Description 06/09/2024 4:20 PM SALES REPRESENTATIVE LIVESTOCK Office Visit [facility] Medical Group Family & Internal Medicine - [place] [address] [place] [address] León Sanchez [place] [id number] [place] [address] Scheduled Referrals Name Type Priority Associated Diagnoses Orde r Schedule Ambulatory referral to General Surgery ([facility]) Referral Routine Gallstone Ordered: 01/22/2019 documented as of this encounter Visit Diagnoses Diagnosis Gallstone- Primary Calculus of gallbladder without mention of cholecystitis or obstruction documented in this encounter Care Teams Supervisor Last Model Department Relationship Specialty Start [place] [address] [place] [address] PCP - General FAMILY PRACTICE 02/27/18 documented as of this encounter
--- OUTSIDE RECORDS SUMMARY | 2024-04-27 18:25 | XMS_ITS | Encounter Summary ---
Author Organization [facility] Address [address] [place] [address]. [place] [address] [place] [address] Care Team Providers Care Direct Service Professional Name Role Phone Etienne Sanchez MD Primary Care Provider [phone] Reason for Visit * Reason Comments Follow Up Encounter Details Date Type Department Care Team (Late st Contact Info) Description 05/21/2020 4:20 PM RN ELIGIBILITY Office Visit 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 No / Unsure 05/21/2020 3:53 PM RN ELIGIBILITY documented as of this encounter Last Filed Vital Signs Vital Sign Reading Time Taken Comments Blood Pressure 184/112 05/21/2020 4:04 PM RN ELIGIBILITY Pulse 90 05/21/2020 4:04 PM RN ELIGIBILITY Temperature 36.2 ??C (97.2 ??F) 05/21/2020 4:04 PM CS T Respiratory Rate 16 05/21/2020 4:04 PM RN ELIGIBILITY Oxygen Saturation 98% 05/21/2020 4:04 PM RN ELIGIBILITY Inhaled Oxygen Concentration - - Weight 70.6 kg (155 lb 9.6 oz) 05/21/2020 4:04 P M RN ELIGIBILITY Height 175.3 cm (5' 9 ) 05/21/2020 4:04 PM RN ELIGIBILITY Body Mass Index 22.98 05/21/2020 4:04 PM RN ELIGIBILITY documented in this encounter Patient Instructions * Patient Instructions* Etienne Sanchez MD - 05/21/2020 4:20 PM RN ELIGIBILITY His hgba1-c is over 10 and needs to start taking his medications as directed and follow a low carb low salt diet as well as his blood pressure medications, Advised to monitor them daily and if any symptoms to go to the ER. Will not inject him today as requested due to high A1-c ELIGIBILITY documented in this encounter Progress Notes * Etienne Sanchez MD - 05/21/2020 4:20 PM CST Images from the original note were not included. Office Progress Note Reason for Visit: Follow Up History of Present Illness: Follow Up Associated [...] his medication regimen.@ denies medication side effects.. ROS: Review of Systems Constitutional: Negative for [...] (5 mg total) by mouth daily., Disp: 90 tablet, Rfl: 0 ??? aspirin EC (ASPIRIN EC) 81 MG tablet, Take 81 mg by mouth daily., Disp: , Rfl: ??? metFORMIN 500 MG tablet, Take 1 tablet (500 mg total) by mouth 2 (two) times daily with meals.,Disp: 180 tablet, Rfl: 0 ??? diclofenac sodium 1 % gel, Apply 2 g topically 4 (four) times daily., Disp: , Rfl: Allergies: Allergies Allergen Reactions ??? Latex Rash [...] High school graduate Occupational History ??? 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 Financial resource strain: Not on file ??? Food insecurity Worry: Not on file Inability: Not on file ??? Transportation needs Medical: Not on file Non-medical: Not on file Tobacco Use ??? Smoking status: Never Smoker ??? Smokeless tobacco: Former User Types: Snuff Substance and Sexual Activity ??? Alcohol use: No Frequency: Never ??? Drug use: No ??? Sexual activity: Yes Partners: Female Lifestyle ??? Physical activity Days per week: Not on file Minutes per session: Not on file ??? Stress: Not on file Relationships ??? Social connections Talks on phone: Not on file Gets together: Not on file Attends judaism service: Not on file Active member of club or organization: Not on file Attends meetings of clubs or organizations: Not on file Relationship status: Not on file ??? Intimate partner violence Fear of current or ex partner: Not [...] sounds normal. He exhibits no tenderness. Musculoskeletal: Comments: Shoulder with bilateral pain on abduction and external rotation with mild weakness Bilateral knees with tibial plateau tenderness with no effusion, ligaments are intact Neurological: He is alert and oriented to person, place, and time. Skin: Skin is warm. No rash noted. Psychiatric: He has a normal mood and affect. His behavior is normal. Nursing note and vitals reviewed. Filed Vitals: 05/21/20 1604 BP: (!) 184/112 Pulse: 90 Resp: 16 Temp: 97.2 ??F (36.2 ??C) SpO2: 98% Weight: 70.6 kg (155 lb 9.6 oz) Height: 5' 9 (1.753 m) Diagnoses/Impression: 1. Type 2 diabetes mellitus without complication, with long-term current use of insulin ([facility]) HEMOGLOBIN, GLYCOSYLATED 2. Hypertension, unspecified type 3. Dyslipidemia Recommendations and Plan: 1. Hypertension, unspecified type PCP: ETIENNE SANCHEZ MD 05/23/2020 ELIGIBILITY documented in this encounter Plan of Treatment Upcoming Encounters Date Type Department Care Team (Late st Contact Info) Description 06/09/2024 4:20 PM RN ELIGIBILITY Office Visit [facility] Medical Group Family & Internal Medicine [facility] [address] [place] [address] Etienne Sanchez [place] [id number] [place] [address] documented as of this encounter Procedures Procedure Name Priority Date/Time Associated Diagnosis Comments HEMOGLOBIN, GLYCOSYLATED Routine 05/21/2020 Type 2 diabetes mellitus without complication, with long-term current use of insulin ([facility]) documented in this encounter Results * HEMOGLOBIN, GLYCOSYLATED (05/21/2020) HGB A1C 10.2 % [id number] [facility] 05/21/2020 us Etienne Sanchez MD LABORATORY Final Resul t -[id number] [facility] [address] [place] [address], documented in this encounter Visit Diagnoses Diagnosis Type 2 diabetes mellitus without complication, with long-term current use of insulin ([facility])- Primary Hypertension, unspecified type Dyslipidemia Other and unspecified hyperlipidemia documented in this encounter Care Teams Direct Service Professional Relationship Specialty [place] [address] [facility] [place] [address] PCP - General FAMILY PRACTICE 02/27/18 documented as of this encounter
--- OUTSIDE RECORDS SUMMARY | 2024-04-27 18:25 | XMS_ITS | Encounter Summary ---
Author Organization [facility] Address [address] [place] [address]. 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 Not on file Not on file documented as of this encounter Plan of Treatment Upcoming Encounters Date Type Department Care Team (Late st Contact Info) Description 06/09/2024 4:20 PM MOTORCYCLE SALES ASSOCIATE Office Visit [facility] Medical Group Family & Internal Medicine - [place] [address] [place] [address] [place] [address] [place] [address] documented as of this encounter Results * ECG 12-Lead (02/20/2019 7:58 AM MOTORCYCLE SALES ASSOCIATE) 02/20/2019 7:5 8 AM MOTORCYCLE SALES ASSOCIATE Narrative [facility] [facility] RAD - 02/22/2019 10:14 AM MOTORCYCLE SALES ASSOCIATE ?[facility] [place] ? Test Date: ?2019-02-20 Pat Name: ? BRADEN QUINNHERLINDA ?Department: ? Room: ? Gender: ? Male ? Information Resources Director: ?? : ?1960 ? Requested By: MARTIN NEAL Order Number: [id number] ? Dwayne TORRES: ?? León Sanchez ? Measurements Intervals ?[place] ? Rate: ? 82 ? P: ?19 [place]: ? 124 ?QRS: ?20 QRSD: ? 78 ? T: ?17 QT: ? 354 ? QTc: ?415 ? Interpretive Statements SINUS RHYTHM No previous ECG available for comparison RCYCLE SALES ASSOCIATE Procedure Note León Sanchez MD - 02/22/2019 [facility] [place] Test Date: 2019-02-20 Pat Name: BRADEN TREJO Department: Room: Gender: Male Information Resources Director: : 1960 Requested By: MARTIN NEAL Order Number: [id number] Reading MD: León Sanchez Measurements Intervals [place] Rate: 82 P: 19 [place]: 124 QRS: 20 QRSD: 78 T: 17 QT: 354 QTc: 415 Interpretive Statements SINUS RHYTHM No previous ECG available for comparison RCYCLE SALES ASSOCIATE us Martin Neal MD ECG ORDERABLES Final Result [facility] [place] [facility] RAD * PLATELET FUNCTION ASSAY (02/20/2019 7:30 AM MOTORCYCLE SALES ASSOCIATE) Pathologist [facility] EPINEPHRINE (PLT FUNCT) 163 80 - 184 SEC 02/20/2019 8:47 AM [facility] COLLAGEN / ADP COL/ADP NOT NEEDED. 56 - 102 SEC 02/20/2019 8:47 AM [facility] Comment: NORMAL COLLAGEN/EPI INDICATES NORMAL PLATELET FUNCTION. 02/20/2019 7:30 AM MOTORCYCLE SALES ASSOCIATE us Martin Neal MD LABORATORY Final Result [facility] [address] [place] [address], * HEPATIC FUNCTION PANEL (02/20/2019 7:30 AM MOTORCYCLE SALES ASSOCIATE) Pathologist [facility] TOTAL PROTEIN S/P/B 6.6 6.4 - 8.2 G/DL 02/20/2019 9:03 AM [facility] ALBUMIN S/P/B 3.7 3.4 - 5.0 G/DL 02/20/2019 9:03 AM [facility] BILIRUBIN TOTAL S/P/B 0.9 0.2 - 1.2 MG/DL 02/20/2019 9:03 AM [facility] BILIRUBIN DIRECT S/P/B 0.1 0.0 - 0.20 MG/DL 02/20/2019 9:03 AM [facility] BILIRUBIN INDIRECT S/P/B 0.8 0.0 - 0.9 MG/DL 02/20/2019 9:03 AM [facility] ALKALINE PHOSPHATASE S/P/B 83 50 - 136 U/L 02/20/2019 9:03 AM [facility] AST 24 15 - 37 U/L 02/20/2019 9:03 AM [facility] ALT 25 16 - 60 U/L 02/20/2019 9:03 AM MOTORCYCLE SALES ASSOCIATE [facility] A/G RATIO 1.3 1.0 - 2.0 RATIO 02/20/2019 9:03 AM MOTORCYCLE SALES ASSOCIATE [facility] 02/20/2019 7:30 AM MOTORCYCLE SALES ASSOCIATE Martin Neal MD LABORATORY Final Result [facility] [address] [place] [address], documented in this encounter Visit Diagnoses Diagnosis Preop testing- Primary Preoperative examination, unspecified Preop examination- Primary Preoperative examination, unspecified Preop testing Preoperative examination, unspecified documented in this encounter Additional Health Concerns Infection Onset Date Last Indicated Resolved Time COVID-19 Rule Out 03/27/2024 03/27/2024 03/27/2024 6:44 PM MOTORCYCLE SALES ASSOCIATE documented as of this encounter Care Teams Architectural Drafter Relationship Specialty Start [place] [address] [place] [address] PCP - General FAMILY PRACTICE 02/27/18 documented as of this encounter
--- OUTSIDE RECORDS SUMMARY | 2024-04-27 18:25 | XMS_ITS | Encounter Summary ---
Author Organization [facility] Address [address] [place] [address]. [place] [address] [place] [address] Care Team Providers Care Dog Sitter Name Role Phone Etienne Sanchez MD Primary Care Provider [phone] Reason for Visit * Reason Comments Follow Up left knee pain Encounter Details Date Type Department Care Team (Late st Contact Info) Description 01/30/2019 4:20 PM CDT Office Visit 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 Not on file Not on file documented as of this encounter Last Filed Vital Signs Vital Sign Reading Time Taken Comments Blood Pressure 118/64 01/30/2019 3:50 PM CDT Pulse 79 01/30/2019 3:50 PM CDT Temperature - - Respiratory Rate 18 01/30/2019 3:50 PM CDT Oxygen Saturation 97% 01/30/2019 3:50 PM CDT Inhaled Oxygen Concentration - - Weight 68.5 kg (151 lb) 01/30/2019 3:50 PM CDT Height 175.3 cm (5' 9 ) 01/30/2019 3:50 PM CDT Body Mass Index 22.3 01/30/2019 3:50 PM CDT documented in this encounter Patient Instructions * Patient Instructions* Etienne Sanchez MD - 01/30/2019 4:20 PM CDT Knee pain: will start votaren gel and recommended brace and ice and when sitting elevation he may need to consider ortho referral if no change documented in this encounter Progress Notes * Etienne Sanchez MD - 01/30/2019 4:20 PM CDT Images from the original note were not included. Office Progress Note Reason for Visit: Follow Up (left knee pain) History of Present Illness: HPI Pt states still having left knee pain with swelling after twisting knee and took IBU seems to be getting better now able to put weight on it and swelling has improved denies rash, paresthesia, locking, had injection two months ago and usually helps longer than three months ROS: Review of Systems Constitutional: Negative for fever. Respiratory: Negative for shortness of breath. Cardiovascular: Negative for claudication and leg swelling. Musculoskeletal: Positive for joint pain. Negative for myalgias. Skin: Negative for rash. Neurological: Negative for sensory change and headaches. Psychiatric/Behavioral: The patient is not nervous/anxious and does not have insomnia. Medications: Current Outpatient Medications: ??? aspirin 81 MG tablet, Take 1 tablet by mouth daily., Disp: , Rfl: ??? ciprofloxacin 500 MG tablet, Take 500 mg by mouth every 12 (twelve) hours., Disp: , Rfl: 0 ??? clobetasol 0.05 % Cream, Apply 1 Dose topically 2 (two) times daily., Disp: , Rfl: Allergies: Allergies Allergen Reactions ??? Codeine Unknown ??? Propoxyphene Unknown Medical History: Past Medical History: Diagnosis Date ??? Arthritis ??? 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 Diabetes mellitus (CMS/HCC) Surgical History: Past Surgical History: Procedure Laterality Date ??? ABDOMINAL SURGERY Social History: Social History Socioeconomic History ??? Marital status: Spouse name: Lisette ??? Number of children: 4 ??? Years of education: Not on file ??? Highest education level: High school graduate Occupational History ??? 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 Financial resource strain: Not [...] file Gets together: Not on file Attends pentecostalism service: Not on file Active member of [...] well- developed and well-nourished. HENT: Head: Normocephalic. Mouth/Throat: Oropharynx is clear and moist. Eyes: No scleral icterus. Cardiovascular: Normal rate and intact distal pulses. Pulmonary/Chest: Effort normal. He has no rales. Musculoskeletal: Left knee with effusion and medial tibial tenderness increased with knee internal rotation Neurological: He is alert and oriented to person, place, and time. Skin: No rash noted. Psychiatric: He has a normal mood and affect. His behavior is normal. Nursing note and vitals reviewed. Filed Vitals: 01/30/19 1550 BP: 118/64 Pulse: 79 Resp: 18 SpO2: 97% Weight: 68.5 kg (151 lb) Height: 5' 9 (1.753 m) Diagnoses/Impression: No diagnosis found. Recommendations and Plan: There are no diagnoses linked to this encounter. PCP: ETIENNE SANCHEZ MD 01/30/2019 documented in this encounter Plan of Treatment Upcoming Encounters Date Type Department Care Team (Late st Contact Info) Description 06/09/2024 4:20 PM CLIMATOLOGIST Office Visit [facility] Medical Group Family & Internal Medicine [facility] [address] [place] [address] [place] [address] [place] [address] documented as of this encounter Visit Diagnoses Diagnosis Chronic pain of both knees- Primary documented in this encounter Care Teams Dog Sitter Relationship Specialty [place] [address] [place], [place] [id number] PCP - General FAMILY PRACTICE 02/27/18 documented as of this encounter
--- OUTSIDE RECORDS SUMMARY | 2024-04-27 18:25 | XMS_ITS | Encounter Summary ---
Author Organization [facility] Address [address] [place] [address]. 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 Not on file Not on file documented as of this encounter Plan of Treatment Upcoming Encounters Date Type Department Care Team (Late st Contact Info) Description 06/09/2024 4:20 PM MRI TECH Office Visit [facility] Medical Group Family & Internal Medicine [facility] [id number] [place] [address] León Sanchez [place] [id number] [place] [address] documented as of this encounter Visit Diagnoses Not on filedocumented in this encounter Care Teams Meat Packer Relationship Specialty Start [place] [address] [place] [address] PCP - General FAMILY PRACTICE 02/27/18 documented as of this encounter
--- OUTSIDE RECORDS SUMMARY | 2024-04-27 18:25 | XMS_ITS | Encounter Summary ---
Author Organization [facility] Address [address] [place] [address]. [place] [address] [place] [address] Care Team Providers Care Heat Set Operator Name Role Phone León Sanchez MD Primary Care Provider [phone] Encounter Details Date Type Department Care Team (Latest Contact Info) Description 06/12/2019 4:46 PM DATA CONVERSION ANALYST - 06/12/2019 11:59 PM DATA CONVERSION ANALYST Hospital Encounter 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 lisinopril 10 MG tabletIndications: Hypertension, unspecified type Take 1 tablet (10 mg total) by mouth daily. 30 tablet 3 02/24/2019 09/26/2019 metFORMIN 500 MG tabletIndications: Type 2 diabetes mellitus without complication, with long-term current use of insulin ([facility]) Take 1 tablet (500 mg total) by mouth 2 (two) times daily with meals. 60 tablet 3 02/24/2019 09/26/2019 documented as of this encounter Progress Notes * Nishi Topete RN - 06/13/2019 11:19 AM CST LVM on pt's home and cell phone to call office. CONVERSION ANALYST * León Sanchez MD - 06/13/2019 9:53 AM CST No evidence of fracture keep elevated and if any fever or redness to notify the office CONVERSION ANALYST documented in this encounter Plan of Treatment Upcoming Encounters Date Type Department Care Team (Late st Contact Info) Description 06/09/2024 4:20 PM DATA CONVERSION ANALYST Office Visit [facility] Medical Group Family & Internal Medicine [address] [address] León Sanchez MD [address] [place] [address] documented as of this encounter Procedures Procedure Name Priority Date/Time Associated Diagnosis Comments XR FOOT RT 3V Routine 06/12/2019 5:02 PM DATA CONVERSION ANALYST Right foot pain documented in this encounter Results * XR FOOT RT 3V (06/12/2019 5:02 PM DATA CONVERSION ANALYST) Anatomical Region Laterality Modality Foot Radiographic Keshia ging 06/13/2019 8:40 AM DATA CONVERSION ANALYST Impressions 06/13/2019 8:40 AM DATA CONVERSION ANALYST IMPRESSION: No evidence of acute fracture, dislocation, or radiopaque foreign body. Inferior calcaneal spur. Interpreted By: Daryl Weir, 06/13/2019 8:40 AM Narrative 06/13/2019 8:40 AM DATA CONVERSION ANALYST IMAGING STUDIES: XR FOOT RT 3V DATE: [...] Interpreted By: Daryl Weir, 06/13/2019 8:40 AM León Sanchez MD GENERAL IMAGING Final Resul t documented in this encounter Visit Diagnoses Diagnosis Right foot pain Pain in limb documented in this encounter Care Teams Heat Set Operator Relationship Specialty Start [place] [address] [place] [address] PCP - General FAMILY PRACTICE 02/27/18 documented as of this encounter
--- OUTSIDE RECORDS SUMMARY | 2024-04-27 18:25 | XMS_ITS | Encounter Summary ---
Author Organization [facility] Address [address] [place] [address]. [place] [address] [place] [address] Care Team Providers Care Cone Trucker Name Role Phone León Sanchez MD Primary Care Provider [phone] Encounter Details Date Type Department Care Team (Late st Contact Info) Description 02/24/[address] 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 EGE ADMISSIONS COUNSELOR documented in this encounter Plan of Treatment Upcoming Encounters Date Type Department Care Team (Late st Contact Info) Description 06/09/2024 4:20 PM COLLEGE ADMISSIONS COUNSELOR Office Visit [facility] Medical Group Family & Internal Medicine [facility] [address] [place] [address] [place] [address] [place], [place] [phone] documented as of this encounter Visit Diagnoses Not on filedocumented in this encounter Care Teams Cone Trucker Relationship Specialty Start [place] [address] [place], [place] [id number] PCP - General FAMILY PRACTICE 02/27/18 documented as of this encounter
--- OUTSIDE RECORDS SUMMARY | 2024-04-27 18:25 | XMS_ITS | Encounter Summary ---
Author Organization [facility] Address [address] [place] [address]. [place] [address] [place] [address] Care Team Providers Care Warehousing Technician Name Role Phone León Sanchez MD Primary Care Provider [phone] Encounter Details Date Type Department Care Team (Latest Contact Info) Description 02/20/2019 7:00 AM HARD CANDY BATCH MIXER - 02/20/2019 11:59 PM HARD CANDY BATCH MIXER Hospital Encounter [facility]iop[facility] Services [address] [place] [address] [place] [address] [facility] [address] [place] [address] Discharge Disposition: Home or Self [...] Sexual Orientation Straight 03/28/2018 4: 44 PM HARD CANDY BATCH MIXER 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 Not on file Not on file documented as of this encounter Plan of Treatment Upcoming Encounters Date Type Department Care Team (Late st Contact Info) Description 06/09/2024 4:20 PM HARD CANDY BATCH MIXER Office Visit [facility] Medical Group Family & Internal Medicine - [place] [address] [place] [address] [place] [address] [place] [address] documented as of this encounter Procedures Procedure Name Priority Date/Time Associated Diagnosis Comments ECG 12-LEAD Routine 02/20/2019 7:58 AM HARD CANDY BATCH MIXER Preop testing documented in this encounter Results * ECG 12-Lead (02/20/2019 7:58 AM HARD CANDY BATCH MIXER) 02/20/2019 7:58 AM HARD CANDY BATCH MIXER Narrative [facility] RAD - 02/22/2019 10:14 AM HARD CANDY BATCH MIXER ?[facility] [place] ? Test Date: ?2019-02-20 Pat Name: ? BRADEN TREJO ?Department: ? Room: ? Gender: ? Male ? Lift Builder Whole: ?? : ?1960 ? Requested By: MARTIN NEAL Order Number: [id number] ? Dwayne TORRES: ?? León Sanchez ? Measurements Intervals ?[place] ? Rate: ? 82 ? P: ?19 DE: ? 124 ?QRS: ?20 QRSD: ? 78 ? T: ?17 QT: ? 354 ? QTc: ?415 ? Interpretive Statements SINUS RHYTHM No previous ECG available for comparison CANDY BATCH MIXER Procedure Note León Sanchez MD - 02/22/2019 [facility] [place] Test Date: 2019-02-20 Pat Name: BRADEN TREJO Department: Room: Gender: Male Lift Builder Whole: : 1960 Requested By: MARTIN NEAL Order Number: [id number] Dwayne MD: León Sanchez Measurements Intervals [place] Rate: 82 P: 19 DE: 124 QRS: 20 QRSD: 78 T: 17 QT: 354 QTc: 415 Interpretive Statements SINUS RHYTHM No previous ECG available for comparison CANDY BATCH MIXER us Martin Neal MD ECG ORDERABLES Final Result [facility] RAD documented in this encounter Visit Diagnoses Diagnosis Preop examination- Primary Preoperative examination, unspecified Preop testing Preoperative examination, unspecified documented in this encounter Care Teams Warehousing Technician Relationship Specialty Start [place] [address] [place] [address] PCP - General FAMILY PRACTICE 02/27/18 documented as of this encounter
--- OUTSIDE RECORDS SUMMARY | 2024-04-27 18:25 | XMS_ITS | Encounter Summary ---
Author Organization [facility] Address [address] [place] [address]. [place], [place] [address] [place] [address] Care Team Providers Care Middle School Teacher Name Role Phone León Sanchez MD Primary Care Provider [phone] Reason for Visit * Reason Onset Date Comments Referral 03/05/2019 Encounter Details Date Type Department Care Team (Late st Contact Info) Description 03/05/2019 Telephone [facility] Medical Group Family & Internal Medicine [facility] [address] [place] [address] [place] [address] [place] [address] Referral Social History Tobacco Use [...] Sexual Orientation Straight 03/28/2018 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 Thanks! MBOAT INSPECTOR * Nishi Topete RN - 03/06/2019 9:[address] Sanchez, get MRI of chest without contrast. LVM for pt to call office. When he returns call, please inform him that [facility] will not see him until he has imaging done first. MRI has been ordered and someone from central scheduling will call him to get this scheduled. MBOAT INSPECTOR * Nishi Topete RN - 03/05/2019 2:11 PM CST Printed for Dr Sanchez to advise. MBOAT INSPECTOR * Sandra Vazquez LPN - 03/05/2019 1:32 PM CST tia from [facility] referal center pt can't get appt with [facility] done without MRI imaging. do you want referral dept to look for some where else or get imaging done [phone] MBOAT INSPECTOR documented in this encounter Plan of Treatment Upcoming Encounters Date Type Department Care Team (Late st Contact Info) Description 06/09/2024 4:20 PM STEAMBOAT INSPECTOR Office Visit [facility] Medical Group Family & Internal Medicine - [place] [address] [place] [address] León Sanchez [place] [phone] [place] [address] documented as of this encounter Visit Diagnoses Diagnosis Rupture of pectoralis major muscle, initial encounter- Primary documented in this encounter Care Teams Middle School Teacher Relationship Specialty Start [place] [address] [place] [address] PCP - General FAMILY PRACTICE 02/27/18 documented as of this encounter
--- OUTSIDE RECORDS SUMMARY | 2024-04-27 18:25 | XMS_ITS | Encounter Summary ---
Author Organization [facility] Address [address] [place] [address]. [place] [address] [place] [address] Care Team Providers Care Maintenance Of Way Superintendent Name Role Phone León Sanchez MD Primary Care Provider [phone] Reason for Visit * Reason Onset Date Comments Pre-authorization 02/10/2019 Encounter Details Date Type Department Care Team (Late st Contact Info) Description 02/10/2019 Telephone [facility] Medical Group Family & Internal Medicine [facility] [address] [place] [address] León Sanchez [place] [id number] [place] [address] Pre-authorization Social History Tobacco Use Types Packs/Day Years [...] Sexual Orientation Straight 03/28/2018 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 Prior auth done on cover my meds and approved. Pharmacy aware. * Earlene Vasquez - 02/10/2019 12:43 PM CDT Call back # [phone] Mai is needing pre -autho for his She has queston Voltarin 1% gel Please call documented in this encounter Plan of Treatment Upcoming Encounters Date Type Department Care Team (Late st Contact Info) Description 06/09/2024 4:20 PM RELIABILITY MANAGER Office Visit [facility] Medical Group Family & Internal Medicine [address] [phone] León Sanchez [place] [id number] [place], [place] [phone] documented as of this encounter Visit Diagnoses Not on filedocumented in this encounter Care Teams Maintenance Of Way Superintendent Relationship Specialty Start Date End Date León Sanchez MD [address] [place] [address] PCP - General FAMILY PRACTICE 02/27/18 documented as of this encounter
--- OUTSIDE RECORDS SUMMARY | 2024-04-27 18:26 | XMS_ITS | Encounter Summary ---
Author Organization [facility] Address [facility] 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 Vicky and Dionicio think this is a long time and want Dr. Sanchez's opinion. Ashlee Jennings - 10 Apr 2017 11:32 AM TASK EDITED Pt and his informed that per Dr. Sanchez the lloyd need to stay in as long as the surgeon states they need to be, verbalized understanding. Signatures Electronically signed by : Ashlee Jennings R.N.; Apr 10 2017 11:32AM PHOTOGRAPHIC PROCESS WORKER (Author) documented in this encounter Plan of Treatment Upcoming Encounters Date Type Department Care Team (Late st Contact Info) Description 06/09/2024 4:20 PM PHOTOGRAPHIC PROCESS WORKER Office Visit [facility] Medical Group Family & Internal Medicine [facility] [address] [place] [address] [place] [address] [place] [address] documented as of this encounter Visit Diagnoses Not on filedocumented in this encounter
--- OUTSIDE RECORDS SUMMARY | 2024-04-27 18:26 | XMS_ITS | Encounter Summary ---
Author Organization [facility] Address [address] [place] [address]. [place] [address] [place] [address] Care Team Providers Care Poultry Pathologist Name Role Phone León Sanchez MD Primary Care Provider [phone] Encounter Details Date Type Department Care Team ([facility] Contact Info) Description 09/21/[address] [facility] [address] [place], [place] [phone] [place] [address] [place], [place] [phone] Social History Tobacco Use Types Packs/Day Years Used Date Smoking Tobacco: Never Assessed AUDIT-C Answer Date Recorded Frequency of Alcohol Consumption Never 02/26/2018 Average Number of Drinks Not on file 018 Frequency of Binge Drinking Not on file 02/14 Sex and Gender Information Value Date Recorded Sex Assigned at Not on file Legal Sex Male 6:22 PM CDT Gender Identity Not on file Sexual Orientation Straight 03/28/2018 4: 44 PM COMBAT CONTROL MANAGER documented as of this encounter Plan of Treatment Upcoming Encounters Date Type Department Care Team (Late Contact Info) Description 06/09/2024 4:20 PM COMBAT CONTROL MANAGER Office Visit [facility] Medical Group Family & Internal Medicine [facility] [address] [place] [address] [place] [address] [place] [address] documented as of this encounter Visit Diagnoses Diagnosis Abdominal pain Abdominal pain, unspecified site documented in this encounter Care Teams Poultry Pathologist Relationship Specialty Start [place] [address] [place] [address] PCP - General FAMILY PRACTICE 02/27/18 documented as of this encounter
--- OUTSIDE RECORDS SUMMARY | 2024-04-27 18:26 | XMS_ITS | Encounter Summary ---
Author Organization [facility] Address [address] [place] [address]. [place] [address] [place] [address] Care Team Providers Care Supervisor Malted Milk Name Role Phone León Sanchez MD Primary Care Provider [phone] Encounter Details Date Type Department Care Team (Late Contact Info) Description 01/03/2018 Abstract [facility] [address] [place], [place] [id number] [place] [address] [place] [address] Social History Tobacco Use Types [...] Sexual Orientation Straight 03/28/2018 4: 44 PM SURGICAL FIRST ASSISTANT documented as of this encounter Plan of Treatment Upcoming Encounters Date Type Department Care Team (Late st Contact Info) Description 06/09/2024 4:20 PM SURGICAL FIRST ASSISTANT Office Visit [facility] Family & Internal Medicine [facility] [address] [place] [address] [place] [address] [place] [address] documented as of this encounter Procedures Procedure Name Priority Date/Time Associated Diagnosis Comments HEMOGLOBIN, GLYCOSYLATED Routine 01/03/2018 3:24 PM CDT COMPREHENSIVE METABOLIC PANEL Routine 01/03/2018 3:24 PM CDT documented in this encounter Results * HEMOGLOBIN, GLYCOSYLATED (01/03/2018 3:24 PM CDT) HGB A1C 5.2 <5.7 % 01/04/2018 7:55 AM CDT [facility] Comment: INCREASED RISK OF DIABETES<5.7% ?NON-DIABETES5.7-6.4% INCREASED RISK FOR FUTURE DIABETES> OR = 6.5 CONSISTENT WITH DIABETES STANDARDS OF MEDICAL CARE IN DIABETES-2010[facility], 33(SUPP 1): S1-S61,2009 WHOLE BLOOD SPECIMEN / Unknown 01/03/2018 3:24 PM CDT 01/03/2018 4:50 PM CDT us Generic Conversion Md [facility] Final R esult [facility] [address] [place] [address], [place] [phone] * (ABNORMAL) COMPREHENSIVE METABOLIC PANEL (01/03/2018 3:24 PM CDT) GLUCOSE 137(H) 70 - 99 MG/DL 01/03/2018 5:07 PM CDT [facility] BUN 17 7 - 18 MG/DL 01/03/2018 5:07 PM CDT [facility] CREATININE S/P/B 0.91 0.7 - 1.3 MG/DL 01/03/2018 5:07 PM CDT [facility] SODIUM S/P/B 143 136 - 145 MMOL/L 01/03/2018 5:07 PM CDT [facility] POTASSIUM S/P/B 4.3 3.5 - 5.1 MMOL/L 01/03/2018 5:07 PM CDT [facility] CHLORIDE S/P/B 107 100 - 108 MMOL/L 01/03/2018 5:07 PM [facility] CO2 30.4 21 - 32 MMOL/L 01/03/2018 5:07 PM [facility] CALCIUM S/P/B 8.7 8.5 - 10.1 MG/DL 01/03/2018 5:07 PM [facility] BILIRUBIN TOTAL S/P/B 0.7 0.2 - 1.2 MG/DL 01/03/2018 5:07 PM [facility] TOTAL PROTEIN S/P/B 6.3(L) 6.4 - 8.2 G/DL 01/03/2018 5:07 PM [facility] ALBUMIN S/P/B 3.7 3.4 - 5.0 G/DL 01/03/2018 5:07 PM [facility] AST 15 15 - 37 U/L 01/03/2018 5:07 PM [facility] ALT 18 16 - 60 U/L 01/03/2018 5:07 PM [facility] ALKALINE PHOSPHATASE S/P/B 62 50 - 136 U/L 01/03/2018 5:07 PM [facility] ANION GAP 9.9 8 - 20 MMOL/L 01/03/2018 5:07 PM [facility] BUN CREATININE RATIO 18.7 6 - 26 01/03/2018 5:07 PM [facility] A/G RATIO 1.4 1.0 - 2.0 RATIO 01/03/2018 5:07 PM [facility] EGFR NON-AFR. AMER. >90 >90 ML/MIN/1.7 3 M2 01/03/2018 5:07 PM [facility] EGFR AFR. AMER. >90 >90 ML/MIN/1.7 3 M2 01/03/2018 5:07 PM CDT [facility] Comment: NOTE: eGFR is not calculated for patients <18 years of age. This is an estimated GFR (CKD EPI) and should not be used for calculating drug doses. 01/03/2018 3:24 PM CDT 01/03/2018 4:50 PM CDT us Generic Conversion Md [facility] Final R esult [facility] [address] [place] [address], documented in this encounter Visit Diagnoses Diagnosis Type 2 diabetes mellitus without complications (CMS/HCC HHS/HCC) Type II or unspecified type diabetes mellitus without mention of complication, not stated as uncontrolled documented in this encounter Care Teams Supervisor Malted Milk Relationship Specialty Start [place] [address] [place] [address] PCP - General FAMILY PRACTICE 02/27/18 documented as of this encounter
--- OUTSIDE RECORDS SUMMARY | 2024-04-27 18:26 | XMS_ITS | Encounter Summary ---
Author Organization [facility] Address [address] [place] [address]. [place] [address] [place] [address] Care Team Providers Care Volunteer Services Supervisor Name Role Phone Unavailable Primary Care Provider Unavailabl e Encounter Details Date Type Department Care Team (Late st Contact Info) Description 03/15/2017 Abstract [facility] Family & Internal Medicine [facility] [address] [place] [address] [place] [address] [place], [place] [id number] Social History Tobacco Use Types Packs/Day Years Used Date Smoking Tobacco: Never Assessed Sex and Gender Information Value Date Recorded Sex Assigned at Not on file Legal Sex Male 6:22 PM CDT Gender Identity Not on file Sexual Orientation Straight 03/28/2018 4: 44 PM CUPOLA HOIST OPERATOR documented as of this encounter Last Filed Vital Signs Vital Sign Reading Time Taken Comments Blood Pressure 126/70 03/15/2017 4:46 PM CUPOLA HOIST OPERATOR Pulse 95 03/15/2017 4:46 PM CUPOLA HOIST OPERATOR Temperature - - Respiratory Rate - - Oxygen Saturation - - Inhaled Oxygen Concentration - - Weight 68 kg (150 lb) 03/15/2017 4:46 PM CUPOLA HOIST OPERATOR Height 175.3 cm (5' 9 ) 03/15/2017 4:46 PM CUPOLA HOIST OPERATOR Body Mass Index 22.15 03/15/2017 4:46 PM CUPOLA HOIST OPERATOR documented in this encounter Progress Notes * León Sanchez MD - 03/15/2017 3:40 PM CST Chief Complaint pt here for diabetic consultation. He will see Dr. Sanchez and Payton (pharmacist) today. History of Present Illness Neck Mass (Brief): The patient is being seen for an initial evaluation of an existing diagnosis of a neck mass. Symptoms: neck mass and neck pain, but no neck redness, no localized warmth and no rash. The patient is currently experiencing symptoms. Associated symptoms: no weight loss, no night sweats, no fatigue, no nausea, no vomiting, no palpitations, no cough, no shortness of breath, no heat intolerance and no cold intolerance. Diabetes: The patient is being seen for Pt recently quit taking his Invokana 2/2 cost, and admits to taking his Metformin very irregularly. His eating is disordered and he is inconsistent with his self care.. Diabetes Mellitus 2. The HbA1c was 8.7% performed on 02/29/2016. Current treatment includes SAMAAR inhibitor. See Medication List for current medication(s). By report, there is poor compliance with treatment and poor symptom control. Current pertinent lifestyle factors include disordered eating and inactivity. Symptoms reported by the patient include fatigue. Hypertension (Follow-Up): The patient presents for follow-up of primary hypertension. The patient states he has been stable with his blood pressure control since the last visit. He has no comorbid illnesses. He has no significant interval events. Symptoms: The patient is currently asymptomatic. Home monitoring: The patient is not checking blood pressure at home.. Medications: the patient is not adherent with his medication regimen.. Review of Systems See HPI for pertinent positives. Constitutional: Normal. Cardiovascular: no intermittent leg claudication and no lower extremity edema. Respiratory: no cough and no shortness of breath during exertion. Gastrointestinal: no abdominal pain, no constipation, no heartburn and no diarrhea. Genitourinary: no dysuria. Integumentary: no skin rash. Musculoskeletal: no limb swelling. Active Problems 1. Bilateral knee pain (719.46) (M25.561,M25.562) 2. Dyslipidemia (272.4) (E78.5) 3. Hypertension (401.9) (I10) 4. Hypogonadism, testicular (257.2) (E29.1) 5. Palpable mass of neck (784.2) (R22.1) 6. Seasonal allergies (477.9) (J30.2) 7. Smokeless tobacco use (305.1) (Z72.0) 8. Tongue lesion (529.8) (K14.8) 9. Type 2 diabetes mellitus (250.00) (E11.9) Past Medical History 1. History of Ankle injury (959.7) (S99.389A) 2. History of Arthritis, multiple joint involvement (716.99) (M12.9) 3. History of Hay fever (477.9) (J30.1) 4. History of acute bronchitis (V12.69) (Z87.09) 5. History of acute bronchitis (V12.69) (Z87.09) 6. History of acute bronchitis with bronchospasm (V12.69) (Z87.09) 7. History of acute sinusitis (V12.69) (Z87.09) 8. History of acute sinusitis (V12.69) (Z87.09) 9. History of acute sinusitis (V12.69) (Z87.09) 10. History of atopic dermatitis (V13.3) (Z87.2) 11. History of chronic sinusitis (V12.69) (Z87.09) 12. History of diabetes mellitus (V12.29) (Z86.39) 13. History of fracture of upper extremity (V15.51) (Z87.81) ?? left forearm 14. History of Left forearm pain (729.5) (M79.632) 15. History of Left knee pain (719.46) (M25.562) 16. History of Left knee pain (719.46) (M25.562) 17. History of Osteoarthritis of knee (715.36) (M17.10) 18. History of Prostate cancer screening (V76.44) (Z12.5) 19. History of Right knee pain (719.46) (M25.561) Surgical History 1. History of Abdominal Surgery Family History Mother 1. Family history of arthritis (V17.7) (Z82.61) 2. Family history of cerebrovascular accident (V17.1) (Z82.3) 3. Family history of congestive heart failure (V17.49) (Z82.49) 4. Family history of diabetes mellitus (V18.0) (Z83.3) 5. Family history of hyperlipidemia (V18.19) (Z83.49) 6. Family history of hypertension (V17.49) (Z82.49) 7. Family history of malignant neoplasm (V16.9) (Z80.9) Social History ?? Current smokeless tobacco user ?? Daily caffeine consumption ?? 3-7 sodas daily, depends on day, some canned some bottles PT QUIT SODA JULY 20, 2016 ? Never a smoker ?? Never Drank Alcohol ?? Smokeless tobacco use (305.1) (Z72.0) Current Meds 1. Aspirin 81 MG TABS; TAKE 1 TABLET DAILY; Therapy: [id number] to (Evaluate:71Lva5584) Recorded 2. BD Insulin Syringe 25G X 5/8 1 ML; USE WITH INSULIN INJECTIONS BEFORE MEALS AND AT BEDTIME; Therapy: 14Mar2017 to (Last Rx:14Mar2017) Requested for: 14Mar2017 Ordered 3. Blood Glucose Monitor System w/Device Kit; PLEASE DISPENSE GLUCOMETER DEVICE THAT PTS INSURANCE WILL COVER. PT TO TEST BLOOD SUGAR BEFORE MEALS AND AT BEDTIME; Therapy: 14Mar2017 to (Last Rx:14Mar2017) Requested for: 14Mar2017 Ordered 4. Blood Glucose Test In Vitro Strip; PLEASE DISPENSE TEST STRIPS THAT PTS INSURANCE WILL COVER, PT TO TEST BEFORE MEALS AND AT BEDTIME; Therapy: 14Mar2017 to (Last Rx:14Mar2017) Requested for: 14Mar2017 Ordered 5. HumaLOG 100 UNIT/ML Subcutaneous Solution; INJECT PER SLIDING SCALE 1/2 HOUR BEFORE MEALS & AT HS 150-199= 2U, 200-249= 4 U, 250-299= 6 U, 300-349= 8 U, 350-399=10 U, 400-450= 12 U; Therapy: 14Mar2017 to (Last Rx:14Mar2017) Requested for: 14Mar2017 Ordered 6. Lancets 30G; PLEASE DISPENSE LANCETS THAT PTS INSURANCE WILL COVER, PT TO TEST BEFORE MEALS AND AT BEDTIME; Therapy: 14Mar2017 to (Last Rx:14Mar2017) Requested for: 14Mar2017 Ordered 7. Lisinopril 10 MG Oral Tablet; TAKE ONE TABLET BY MOUTH ONCE DAILY FOR BLOOD PRESSURE; Therapy: 01Qak3467 to (Evaluate:68Xmb0437) Requested for: 38Yqs3548; Last Rx:[id number] Ordered 8. MetFORMIN HCl - 500 MG Oral Tablet; TAKE TWO TABLETS BY MOUTH TWICE DAILY; Therapy: 44Peo1456 to (Evaluate:42Xss4935) Requested for: 27Sqj6038; Last Rx:[id number] Ordered Allergies 1. Codeine Sulfate TABS 2. Darvocet-N 100 TABS Vitals Recorded: 15Mar2017 04:46PM Heart Rate 95 Respiration 16 Systolic 126 Diastolic 70 O2 Saturation 98 Height 5 ft 9 in Weight 150 lb BMI Calculated 22.15 BSA Calculated 1.83 Physical Exam Constitutional General appearance: No acute distress, well appearing and well nourished. Eyes Conjunctiva and lids: No swelling, erythema, or discharge. Pupils and irises: Equal, round and reactive to light. Ears, Nose, Mouth, and Throat Oropharynx: Abnormal. left sided firm mass mobile lateral to the thyroid.. Pulmonary Auscultation of lungs: Clear to auscultation. Cardiovascular Auscultation of heart: Normal rate and rhythm, normal S1 and S2, without murmurs. Examination of extremities for edema and/or varicosities: Normal. Abdomen Abdomen: Non-tender, no masses. Lymphatic Palpation of lymph nodes in neck: No lymphadenopathy. no supra clavicular node.. Musculoskeletal Gait and station: Normal. Digits and nails: Normal without clubbing or cyanosis. Inspection/palpation of joints, bones, and muscles: Abnormal. left knee no gross deformity no erythema no effusion no calor.. Skin Skin and subcutaneous tissue: Normal without rashes or lesions. Neurologic Cranial nerves: Cranial nerves 2-12 intact. Reflexes: 2+ and symmetric. Sensation: No sensory loss. Psychiatric Orientation to person, place and time: Normal. Mood and affect: Normal. Assessment 1. Hypertension (401.9) (I10) 2. Tongue lesion (529.8) (K14.8) 3. Type 2 diabetes mellitus (250.00) (E11.9) Plan 1) DM: His sugars remain high and last Hgba1-c over ten and surgery wants his glucose to be below 200 before they will do surgery in a week and will start ss insulin and have talked to pharm D spent thirty min in pt education and counseling Signatures Electronically signed by : León Sanchez M.D.; Mar 17 2017 5:06PM CUPOLA HOIST OPERATOR (Author) * Generic Conversion MD Javier - 03/15/2017 3:30 PM CST Message Message: Pt presents with family, daughter and , for education on diabetes. Diagnosed with throat cancer. Per surgeon, BG need to be controlled before undergoing scheduled surgery next week. Hx of heavy snuff use (since age 13) but is cutting back by using non-nictoine snuff pouches. Plans to quit soon. PCP prescribed sliding scale insulin for quick control of BG. Pt is very afraid of taking Humalogsliding scale insulin due to past low blood sugar ~1 year ago attributed to glimepiride. 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 Has not yet used Humalog and is unsure how to use. Pt admits to not taking previously prescribed oral medications. For years, has gone on and off medications , very inconsistent with medication adherence. However, reports taking Invokana 300 mg and Metformin 1000 mg BID consistently for ~10-14 days straight. Regarding his diet, he can go 48-72 hours without eating and forces himself to eat. Often will graze throughout the work day and have his biggest meal at dinner time. Approximately 10 days ago, he made drastic changes by cutting out all soda. Admits to previously drinking a 12 pack of soda within 2 days frequently. He also cut out junk food and carbs. Yesterdays diet includes: - Breakfast: V8, rox bar - Lunch: 3-4 chicken nuggets - Dinner: Pot roast + peas + carrots - Drinks: [employer] water Pt does not regularly test blood sugars but started testing a couple days ago. Last night, BG- 131 and this morning was 191. Seems to stay in range as long as eating right. Denies needing educationon how to test blood sugars. Plan 1) Humalog Education: Reviewed formulations of insulin including MOA and pharmacokinetics. Emphasized importance of proper injection sites, rotation of sites, proper storage and disposal, and missed doses. Discussed s/sx hypoG events and appropriate treatment. Stressed to alwayss inject 15 minutes before meals. NEVER inject without eating. Demonstrated proper injection technique, including rolling the vial in the hands 20 times, removing the white cap, drawing air into syringe equal to dose, inserting needle with the vial standing straight up, injecting air into vial, rotating vial upside down, checking for bubbles, and slowly pulling plunger to correct dose of sliding scale units. Pt and family was able to properly demonstrate injection technique with drawing up correct amount units. Allquestions were answered. Pt to call office with any s/sx of low blood sugars or issues with injecting. Pt given handout of all topics. 2) T2DM Education: Extensive education provided (including book) on DM. Discussed pathophysiology, potential complications such as retinopathy, nephropathy, neuropathy, and cardiovascular risks. Discussed BG and A1c goals, including interpretation of A1c. Counseled on s/sx of low and high blood sugar. Educated on appropriate assessment/treatment of hypoG episodes. Discussed role of exercise and strategies to increase physical activity. Emphasized importance of medication, MOA, and potential ADR. Heavily educated on diet and highly encouraged pt to avoid sugary drinks such as soda. Believe diet has huge impact on pts current A1c. Plan to follow up with patient after recovery from surgery. Thank you Signatures Electronically signed by : Payton Bright, ; Mar 16 2017 10:34AM CUPOLA HOIST OPERATOR (Author) * Generic Conversion MD Javier - 03/15/2017 3:25 PM CST Message Recorded as Task Date: 03/14/2017 04:33 PM, Created By: Lesly Amador Task Name: Informational Assigned To: James Nurse Team Regarding Patient: Sonny Singleton, Status: Active Comment: Lesly Amador - 14 Mar 2017 4:33 PM TASK CREATED Patient came in this evening to discuss his insulin. He did not receive directions on how to injection medication and was not given diet instructions. He was concerned since he has surgery on . Giuliana and John both gave him directions on how to use his insulin and Giuliana gave him some guidance on what to do for his diet. I did put him on the schedule for tomorrow 03/15 at 3:40pm. He was told if he does not end up seeing Dr. Sanchez that he will get to see Payton or [facility]. Giuliana Davis - 14 Mar 2017 5:04 PM TASK EDITED I spent 25 minutes with this gentleman discussing a printout from the [facility] on Diabetes and dietary guidelines. He is very overwhelmed and worried that he will not be able to have his surgery next week if he does not get his glucose level down. He has no idea how to use a glucometer or draw up insulin or inject it. He wants to be told exactly what to eat for the next 5 days so that he can have surgery. I informed him that he needs to read the outlines given to him and let it sink in so that he will have good questions tomorrow and will not need an exact outline. He is willing to do anything at this point to be able to have his surgery. Payton Bright - 15 Mar 2017 8:01 AM TASK EDITED Attempted to contact pt to see if he could come in early to meet with me to discuss diabetes education. No answer. Left message to call back. Thank you Ashlee Jennings - 15 Mar 2017 3:25 PM TASK EDITED Pt is here for an apt at this time, Pt will see Dr. Sanchez and is seeing Payton for teaching Signatures Electronically signed by : Ashlee Jennings R.N.; Mar 15 2017 3:25PM CUPOLA HOIST OPERATOR (Author) documented in this encounter Plan of Treatment Upcoming Encounters Date Type Department Care Team (Late st Contact Info) Description 06/09/2024 4:20 PM CUPOLA HOIST OPERATOR Office Visit [facility] Family & Internal Medicine - [address] [address] León Sanchez MD [address] [place] [address] documented as of this encounter Visit Diagnoses Not on filedocumented in this encounter
--- OUTSIDE RECORDS SUMMARY | 2024-04-27 18:26 | XMS_ITS | Encounter Summary ---
Author Organization [facility] Address [address] [place] [address]. [place] [address] [place] [address] Care Team Providers Care Lumber Tallier Name Role Phone Unavailable Primary Care Provider Unavailabl e Encounter Details Date Type Department Care Team (Late st Contact Info) Description 02/26/2018 Abstract [facility] Family & Internal Medicine [address] [id number] León Sanchez [place] [id number] [place] [address] Social History Tobacco Use Types Packs/Day Years Used Date Smoking Tobacco: Never Smokeless Tobacco: Current Alcohol Use Standard Drinks/Week Comments No 0 [...] Sexual Orientation Straight 03/28/2018 4: 44 PM 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 ER PIANO TECHNICIAN documented in this encounter Plan of Treatment Upcoming Encounters Date Type Department Care Team (Late st Contact Info) Description 06/09/2024 4:20 PM PLAYER PIANO TECHNICIAN Office Visit [facility] Family & Internal Medicine [address] [place] [address] [place] [address] [place] [id number] documented as of this encounter Visit Diagnoses Not on filedocumented in this encounter
--- OUTSIDE RECORDS SUMMARY | 2024-04-27 18:26 | XMS_ITS | Encounter Summary ---
Author Organization [facility] Address [facility] [place] [address] [place] [address] Care Team Providers Care Facility Maintenance Manager Name Role Phone Unavailable Primary Care Provider Unavailabl e Encounter Details Date Type Department Care Team (Latest Contact Info) Description 04/18/2017 Abstract [facility] Social History Tobacco Use Types Packs/Day Years Used Date Smoking Tobacco: Never Assessed Sex and Gender Information Value Date Recorded Sex Assigned at Not on file Legal Sex Male 6:22 PM CDT Gender Identity Not on file Sexual Orientation Straight 03/28/2018 4: 44 PM DIAL MOUNTER documented as of this encounter Plan of Treatment Upcoming Encounters Date Type Department Care Team (Late st Contact Info) Description 06/09/2024 4:20 PM DIAL MOUNTER Office Visit [facility] Family & Internal Medicine [facility] [address] [place] [address] [place] [address] [place] [address] documented as of this encounter Visit Diagnoses Not on filedocumented in this encounter
--- OUTSIDE RECORDS SUMMARY | 2024-04-27 18:26 | XMS_ITS | Encounter Summary ---
Author Organization [facility] Address [facility] [place] [address] [place] [address] Care Team Providers Care Facilities And Grounds Director Name Role Phone Unavailable Primary Care Provider Unavailabl e Encounter Details Date Type Department Care Team (Latest Contact Info) Description 03/14/2017 Abstract [facility] , Kareen Troy MD Social History Tobacco Use Types Packs/Day Years Used Date Smoking Tobacco: Never Assessed Sex and Gender Information Value Date Recorded Sex Assigned at Not on file Legal Sex Male 6:22 PM CDT Gender Identity Not on file Sexual Orientation Straight 03/28/2018 4: 44 PM AUTO STRIPER documented as of this encounter Progress Notes * Generic Conversion MD Javier - 03/14/2017 9:12 AM CST Message Recorded as Task Date: 03/14/2017 08:09 AM, Created By: Deepthi Hernandez Task Name: Call Back Assigned To: [facility] Nurse Team Regarding Patient: Sonny Singleton D, Status: Active Comment: Deepthi Hernandez - 14 Mar 2017 8:09 AM TASK CREATED Patients , Vicky, called and said jo Nelson blood sugar. HA1C yesterday was 11.1, blood sugar last week was 288. Surgeon is requesting a short term insulin until after his surgery. Phone number is correct or you can call [phone]. Ashlee Jennings - 14 Mar 2017 9:16 AM TASK EDITED pts informed that per Dr. Sanchez rx for Humalog sliding scale sent to pharmacy to inject 1/2before meals and at HS. Plan 1. BD Insulin Syringe 25G X 5/8 1 ML; USE WITH INSULIN INJECTIONS BEFORE MEALS AND AT BEDTIME Rx By: León Sanchez; Dispense: 0 Days ; #:1 X 100 Unit Box; Refill: 2; For: Type 2 diabetes mellitus; MICHEL = N; Sent To: [email or web address]; Msg to Pharmacy: DX E 11.9; Last Updated By: Ashlee Jennings; 03/14/2017 9:16:30 AM 2. HumaLOG 100 UNIT/ML Subcutaneous Solution; INJECT PER SLIDING SCALE 1/2 HOUR BEFORE MEALS & AT HS 150-199= 2U, 200-249= 4 U, 250-299= 6 U, 300-349= 8 U, 350-399=10 U, 400-450= 12 U Rx By: León Sanchez; Dispense: 0 Days ; #:1 X 10 ML Vial; Refill: 2; For: Type 2 diabetes mellitus; MICHEL = N; Sent To: [email or web address]; Last Updated By: Ashlee Jennings; 03/14/2017 9:16:30 AM Signatures Electronically signed by : Ashlee Jennings R.N.; Mar 14 2017 9:17AM AUTO STRIPER (Author) documented in this encounter Plan of Treatment Upcoming Encounters Date Type Department Care Team (Late st Contact Info) Description 06/09/2024 4:20 PM AUTO STRIPER Office Visit [facility] Family & Internal Medicine - [place] [id number] [place] [address] León [place] [id number] [place] [address] documented as of this encounter Visit Diagnoses Not on filedocumented in this encounter
--- OUTSIDE RECORDS SUMMARY | 2024-04-27 18:26 | XMS_ITS | Encounter Summary ---
Author Organization [facility] Address [facility] [place] [address] [place] [address] Care Team Providers Care Human Resources Temp Name Role Phone Unavailable Primary Care Provider Unavailabl e Encounter Details Date Type Department Care Team (Latest Contact Info) Description 04/04/2017 Abstract [facility] Social History Tobacco Use Types Packs/Day Years Used Date Smoking Tobacco: Never Assessed Sex and Gender Information Value Date Recorded Sex Assigned at Not on file Legal Sex Male 6:22 PM CDT Gender Identity Not on file Sexual Orientation Straight 03/28/2018 4: 44 PM BARBER INSTRUCTOR documented as of this encounter Plan of Treatment Upcoming Encounters Date Type Department Care Team (Late st Contact Info) Description 06/09/2024 4:20 PM BARBER INSTRUCTOR [facility] [address] [place] [address] [place] [address] [place] [address] documented as of this encounter Visit Diagnoses Not on filedocumented in this encounter
--- OUTSIDE RECORDS SUMMARY | 2024-04-27 18:26 | XMS_ITS | Encounter Summary ---
Author Organization [facility] Address [address] [place] [address]. 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 Not on file Not on file documented as of this encounter Plan of Treatment Upcoming Encounters Date Type Department Care Team (Late st Contact Info) Description 06/09/2024 4:20 PM CHIEF PASSENGER SHIP STEWARD/STEWARDESS Office Visit [facility] Family & Internal Medicine [address] [address] León Sanchez MD [address] [place] [address] documented as of this encounter Procedures Procedure Name Priority Date/Time Associated Diagnosis Comments CT GENERIC Routine 01/09/2019 documented in this encounter Results * CT (01/09/2019) Anatomical Region Laterality Modality Other us Documents Scanned SCANNING Edited Result - Final documented in this encounter Visit Diagnoses Not on filedocumented in this encounter Care Teams Supervisor Operations Relationship Specialty Start [place] [address] [place] [address] PCP - General FAMILY PRACTICE 02/27/18 documented as of this encounter
--- OUTSIDE RECORDS SUMMARY | 2024-04-27 18:26 | XMS_ITS | Encounter Summary ---
Author Organization [facility] Address [facility] 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 Family & Internal Medicine [facility] [address] [place] [address] [place] [address] [place], [place] [id number] Social History Tobacco Use Types Packs/Day Years Used Date Smoking Tobacco: Never Assessed Sex and Gender Information Value Date Recorded Sex Assigned at Not on file Legal Sex Male 6:22 PM CDT Gender Identity Not on file Sexual Orientation Straight 03/28/2018 4: 44 PM LAST WAXER documented as of this encounter Last Filed Vital Signs Vital Sign Reading Time Taken Comments Blood Pressure 142/78 03/05/2017 4:37 PM LAST WAXER Pulse 82 03/05/2017 4:37 PM LAST WAXER Temperature - - Respiratory Rate - - Oxygen Saturation - - Inhaled Oxygen Concentration - - Weight 70.3 kg (155 lb) 03/05/2017 4:37 PM LAST WAXER Height 175.3 cm (5' 9 ) 03/05/2017 4:37 PM LAST WAXER Body Mass Index 22.89 03/05/2017 4:37 PM LAST WAXER documented in this encounter Progress Notes * León Sanchez MD - 03/05/2017 4:40 PM CST Chief Complaint pt here for a f/u. He was recently diagnosed with throat cancer. History of Present Illness Neck Mass (Brief): [...] 8.7% performed on 02/29/2016. Current treatment includes SAMARA inhibitor. See Medication List for current medication(s). [...] patient is not checking blood pressure at home. Medications: the patient is not adherent with his medication regimen. Review of Systems See HPI for pertinent [...] 7. Smokeless tobacco use (305.1) (Z72.0) 8. Type 2 diabetes mellitus (250.00) (E11.9) Past Medical History 1. History of Ankle injury (959.7) (S99.919A) 2. History of Arthritis, multiple joint involvement [...] MG TABS; TAKE 1 TABLET DAILY; Therapy: 30Aci6134 to (Evaluate:15Vbt2278) Recorded 2. Lisinopril 10 MG Oral Tablet; TAKE ONE TABLET BY MOUTH ONCE DAILY FOR BLOOD PRESSURE; Therapy: 87Xgy4572 to (Evaluate:57Ion1092) Requested for: 19Szz4269; Last Rx:[id number] Ordered 3. MetFORMIN HCl - 500 MG Oral Tablet; TAKE TWO TABLETS BY MOUTH TWICE DAILY; Therapy: 68Xgr4839 to (Evaluate:92Mvi0549) Requested for: 49Mdg7199; Last Rx:[id number] Ordered Allergies 1. Codeine Sulfate TABS 2. Darvocet-N 100 TABS Vitals Recorded: 05Mar2017 04:37PM Heart Rate 82 Respiration 16 Systolic 142 Diastolic 78 O2 Saturation 99 Height 5 ft 9 in Weight 155 lb BMI Calculated 22.89 BSA Calculated 1.85 Physical Exam Constitutional General appearance: No acute distress, well appearing and well nourished. Eyes Conjunctiva and lids: No swelling, erythema, or discharge. Pupils and irises: Equal, round and reactive to light. Ears, Nose, Mouth, and Throat Oropharynx: Abnormal. left sided firm mass mobile lateral to the thyroid. Pulmonary Auscultation of lungs: Clear to auscultation. Cardiovascular Auscultation of heart: Normal rate and rhythm, normal S1 and S2, without murmurs. Examination of extremities for edema and/or varicosities: Normal. Abdomen Abdomen: Non-tender, no masses. Lymphatic Palpation of lymph nodes in neck: No lymphadenopathy. no supra clavicular node. Musculoskeletal Gait and station: Normal. Digits and nails: Normal without clubbing or cyanosis. Inspection/palpation of joints, bones, and muscles: Abnormal. left knee no gross deformity no erythema no effusion no calor. Skin Skin and subcutaneous tissue: Normal without rashes or lesions. Neurologic Cranial nerves: Cranial nerves 2-12 intact. Reflexes: 2+ and symmetric. Sensation: No sensory loss. Psychiatric Orientation to person, place and time: Normal. Mood and affect: Normal. Assessment 1. 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 Family & Internal Medicine [facility] [address] [place] [address] León Sanchez [place] [id number] [place] [address] documented as of this encounter Visit Diagnoses Not on filedocumented in this encounter
--- OUTSIDE RECORDS SUMMARY | 2024-04-27 18:26 | XMS_ITS | Encounter Summary ---
Author Organization [facility] Address [facility] 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 Role Phone Unavailable Primary Care Provider Unavailabl e Encounter Details Date Type Department Care Team (Latest Contact Info) Description 01/04/2018 Abstract [facility] [place] [address] [place] [address] Social History Tobacco Use Types Packs/Day Years Used Date Smoking Tobacco: Never Assessed Sex and Gender Information Value Date Recorded Sex Assigned at Not on file Legal Sex Male 6:22 PM CDT Gender Identity Not on file Sexual Orientation Straight 03/28/2018 4: 44 PM DEHAIRER documented as of this encounter Last Filed Vital Signs Vital Sign Reading Time Taken Comments Blood Pressure 170/80 01/04/2018 3:33 PM CDT Pulse 77 01/04/2018 3:33 PM CDT Temperature - - Respiratory Rate - - Oxygen Saturation - - Inhaled Oxygen Concentration - - Weight 66.2 kg (146 lb) 01/04/2018 3:33 PM CDT Height 175.3 cm (5' 9 ) 01/04/2018 3:33 PM CDT Body Mass Index 21.56 01/04/2018 3:33 PM CDT documented in this encounter Progress Notes * León Sanchez MD - 01/04/2018 4:00 PM CDT Chief Complaint Patient here today with concerns for hot flashes at night and high blood pressure. States he had his labs drawn the other day and would like to discuss going back on blood pressure medication. History of Present Illness Diabetes: The patient is being seen for [...] Musculoskeletal: no limb swelling. Active Problems 1. Abdominal pain (789.00) (R10.9) 2. Acute bronchitis (466.0) (J20.9) 3. Acute sinusitis (461.9) (J01.90) 4. Anxiety (300.00) (F41.9) 5. Bilateral knee pain (719.46) (M25.561,M25.562) 6. Bilateral shoulder pain (719.41) (M25.511,M25.512) 7. Cancer of tongue (141.9) (C02.9) 8. Cholecystolithiasis (574.20) (K80.20) 9. Constipation, acute (564.00) (K59.00) 10. Dyslipidemia (272.4) (E78.5) 11. Hypertension (401.9) (I10) 12. Hypogonadism, testicular (257.2) (E29.1) 13. Left shoulder pain (719.41) (M25.512) 14. Palpable mass of neck (784.2) (R22.1) 15. Shoulder pain, right (719.41) (M25.511) 16. Smokeless tobacco use (305.1) (Z72.0) 17. Type 2 diabetes mellitus (250.00) (E11.9) Seasonal allergies (477.9) (J30.2) Past Medical History 1. History of Ankle [...] History of Right knee pain (719.46) (M25.561) 20. History of Tongue lesion (529.8) (K14.8) Surgical History 1. History of Abdominal Surgery [...] MG TABS; TAKE 1 TABLET DAILY; Therapy: 83Wgg1363 to (Evaluate:68Zns1763) Recorded 2. Atorvastatin Calcium 20 MG Oral Tablet; TAKE 1 TABLET AT BEDTIME; Therapy: 42Wyt0549 to (Evaluate:04Mar2018) Requested for: 87Gdf5039; Last Rx:[id number] Ordered 3. BusPIRone HCl - 10 MG Oral Tablet; one tablet three times a day as needed; Therapy: 80Qts4899 to (Last Rx:68Jls7178) Requested for: 73Fxo7281 Ordered 4. Clobetasol Propionate E 0.05 % External Cream; APPLY SPARINGLY AND GENTLY MASSAGE INTO AFFECTED AREA(S) TWICE DAILY, use for up to two weeks at a time; Therapy: 74Foz3543 to Requested for: 62Fwj4950 Recorded 5. MetFORMIN HCl - 500 MG Oral Tablet; TAKE TWO TABLETS BY MOUTH TWICE DAILY; Therapy: 29Jan2012 to (Evaluate:48Qbr1353) Requested for: 15Jun2017; Last Rx:[id number] Ordered 6. Montelukast Sodium 10 MG Oral Tablet; TAKE 1 TABLET BY MOUTH ONCE DAILY AT BEDTIME; Therapy: 22Jun2017 to (Evaluate:22Jan2018) Requested for: 96Fut4119; Last Rx:[id number] Ordered Allergies 1. Codeine Sulfate TABS 2. Darvocet-N 100 TABS Vitals Recorded: 04Jan2018 03:33PM Heart Rate 77 Respiration 18 Systolic 170 Diastolic 80 O2 Saturation 98 Height 5 ft 9 in Weight 146 lb BMI Calculated 21.56 BSA Calculated 1.81 Physical Exam Constitutional General appearance: No acute [...] and time: Normal. Mood and affect: Normal. Results/Data Compr Metabolic Prof ( CMP ) 03Jan2018 03:24PM León Sanchez Test Name Result Flag Reference Sodium (Na) 143 MMOL/L 136-145 Potassium (K) 4.3 MMOL/L 3.5-5.1 Chloride (Cl) 107 MMOL/L 100-108 Carbon Dioxide (CO2) 30.4 MMOL/L 21-32 Anion Gap 9.9 MMOL/L 8-20 Blood Urea Nitrogen (BUN) 17 MG/DL 7-18 Creatinine 0.91 MG/DL 0.7-1.3 Glomerular Filt Rate Calc >90 ML/MIN/1.73 M2 >90 Glomerular Filt Rate (AA) Calc >90 >90 NOTE: eGFR is not calculated for patients <18 years of age. This is an estimated GFR (CKD EPI) and should not be used for calculating drug doses. ML/MIN/1.73 M2 BUN Creatinine Ratio 18.7 6-26 Glucose 137 MG/DL H 70-99 Calcium 8.7 MG/DL 8.5-10.1 Total Bilirubin 0.7 MG/DL 0.2-1.2 AST/GOT 15 U/L 15-37 ALT/GPT 18 U/L 16-60 Alkaline Phosphatase (ALKP) 62 U/L 50-136 Total Protein 6.3 G/DL L 6.4-8.2 Albumin 3.7 G/DL 3.4-5.0 A:G Ratio 1.4 RATIO 1.0-2.0 Hemoglobin A1C ( HA1C ) 07Opq6863 03:24PM León Sanchez Test Name Result Flag Reference Hemoglobin A1c 5.2 % <5.7 INCREASED RISK OF DIABETES <5.7% NON-DIABETES 5.7-6.4% INCREASED RISK FOR FUTURE DIABETES > OR = 6.5 CONSISTENT WITH DIABETES STANDARDS OF MEDICAL CARE IN DIABETES-2010 DIABETES CARE, 33(SUPP 1): S1-S61,2009 Assessment 1. Hypertension (401.9) (I10) 2. Type 2 diabetes mellitus (250.00) (E11.9) Plan Hypertension 1. Lisinopril 10 MG Oral Tablet; TAKE ONE TABLET BY MOUTH ONCE DAILY FOR BLOOD PRESSURE Rx By: León Sanchez; Dispense: 90 Days ; #:90 Tablet; Refill: 1; For: Hypertension; MICHEL = N; Verified Transmission to [facility] [place] [facility]; Msg to Pharmacy: PT MUST HAVE APPT FOR FURTHER REFILLS; Last Updated By: Wishery; 01/04/2018 4:30:19 PM 1) Had some night sweats and now better but has had them for years before the cancer and recent oncology note shows no signs of his malignancy for now will observe Signatures Electronically signed by : León Sanchez M.D.; Jan 07 2018 9:05PM DEHAIRER (Author) * Generic Conversion MD Javier - 01/04/2018 3:49 PM CDT Message Recorded as Task Date: 01/04/2018 01:12 PM, Created By: León Sanchez Task Name: Call Patient with results Assigned To: León Sanchez Regarding Patient: Sonny Singleton, Status: In Progress Comment: León Sanchez - 04 Jan 2018 1:12 PM Patient hgba1-c is normal at 5.2 ProGillian patel - 04 Jan 2018 2:53 PM TASK EDITED lvm for pt to return. Sarah Beck - 04 Jan 2018 3:50 PM TASK EDITED Patient informed at office visit. Signatures Electronically signed by : Sarah Beck, ; Jan 04 2018 3:50PM DEHAIRER (Author) * Kareen Troy Md, MD - 01/04/2018 3:49 PM CDT Message Recorded as Task Date: 01/03/2018 08:31 PM, Created By: León Sanchez Task Name: Call Patient with results Assigned To: León Sanchez Regarding Patient: Sonny Singleton, Status: Active Comment: León Sanchez - 03 Jan 2018 8:31 PM Patient other than glucose cmp is normal follow up in office Sarah Beck - 04 Jan 2018 11:46 AM TASK EDITED Patient has apt today to see Dr. Sanchez. Sarah Beck - 04 Jan 2018 3:49 PM TASK EDITED Discussed in office visit. Signatures Electronically signed by : Sarah Beck, ; Jan 04 2018 3:50PM DEHAIRER (Author) * Reji Carrillo NP - 01/04/2018 1:12 PM CDT Message hgba1-c is normal at 5.2 Verified Results Hemoglobin A1C ( HA1C ) 03Jan2018 03:24PM León Sanchez Test Name Result Flag Reference Hemoglobin A1c 5.2 % <5.7 INCREASED RISK OF DIABETES <5.7% NON-DIABETES 5.7-6.4% INCREASED RISK FOR FUTURE DIABETES > OR = 6.5 CONSISTENT WITH DIABETES STANDARDS OF MEDICAL CARE IN DIABETES-2010 DIABETES CARE, 33(SUPP 1): S1-S61,2009 documented in this encounter Plan of Treatment Upcoming Encounters Date Type Department Care Team (Late st Contact Info) Description 06/09/2024 4:20 PM DEHAIRER Office Visit [facility] Family & Internal Medicine - [place] [address] [place] [address] [place] [address] [place], [place] [id number] documented as of this encounter Visit Diagnoses Not on filedocumented in this encounter
--- OUTSIDE RECORDS SUMMARY | 2024-04-27 18:26 | XMS_ITS | Encounter Summary ---
Author Organization [facility] Address [address] [place] [address]. [place] [address] [place] [address] Care Team Providers Care Director Government Name Role Phone Unavailable Primary Care Provider Unavailabl e Encounter Details Date Type Department Care Team (Late st Contact Info) Description 06/22/2017 Abstract [facility] Family & Internal Medicine [facility] [address] [place] [address] [place] [address] [place] [address] Social History Tobacco Use Types Packs/Day Years Used Date Smoking Tobacco: Never Assessed Sex and Gender Information Value Date Recorded Sex Assigned at Not on file Legal Sex Male 6:22 PM CDT Gender Identity Not on file Sexual Orientation Straight 03/28/2018 4: 44 PM 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 documented as of this encounter Last Filed Vital Signs Vital Sign Reading Time Taken Comments Blood Pressure 102/62 06/22/2017 2:24 PM 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 Pulse 98 06/22/2017 2:24 PM 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 Temperature - - Respiratory Rate - - Oxygen Saturation - - Inhaled Oxygen Concentration - - Weight 59.9 kg (132 lb) 06/22/2017 2:24 PM 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 Height 175.3 cm (5' 9 ) 06/22/2017 2:24 PM 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 Body Mass Index 19.49 06/22/2017 2:24 PM 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 documented in this encounter Progress Notes * León Sanchez MD - 06/22/2017 4:08 PM CST Message pt is aware Pt informed at apt Verified Results *A1C In Office 22Jun2017 02:47PM León Sanchez Test Name Result Flag Reference A1C 8.3 A 4.2 - 6.5 % HbA1C Signatures Electronically signed by : Ashlee Jennings R.N.; Jun 25 2017 8:28AM 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 (Author) * Kareen Troy Md, MD - 06/22/2017 2:54 PM CST Message Recorded as Task Date: 06/22/2017 11:57 AM, Created By: Payton Bright Task Name: Informational Assigned To: [facility] Nurse Team Regarding Patient: Sonny Singleton, Status: Active Comment: Payton Bright - 22 Jun 2017 11:57 AM TASK CREATED Pt has appointment with PCP today. If okay'd by PCP, can we order an A1c? (last A1c 01/2017 10.6%) Thank you! Ashlee Jennings - 22 Jun 2017 2:54 PM TASK EDITED Pt had apt today and A1C ran Signatures Electronically signed by : Ashlee Jennings R.N.; Jun 22 2017 2:54PM 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 (Author) * León Sanchez MD - 06/22/2017 2:20 PM CST Chief Complaint Pt here with c/o cough and sinus drainage. Pt states that the drainage is making him sick to his stomach History of Present Illness Cough: Sonny Singleton presents with complaints of cough. Associated symptoms include runny nose, stuffy nose, sore throat, pleuritic chest pain, vomiting and postnasal drainage, but no dyspnea, no wheezing, no chills, no fever, no chest pain, no heartburn and no hemoptysis. Diabetes: The patient is being seen for [...] Symptoms reported by the patient include fatigue. Review of Systems See HPI for pertinent positives. Constitutional: feeling tired, but no fever and no chills. ENT: sore throat, nasal discharge and hoarseness, but no earache and no nosebleeds. Cardiovascular: Normal, no intermittent leg claudication and no lower extremity edema. Respiratory: no cough, no shortness of breath during exertion and no wheezing. Gastrointestinal: vomiting and nausea, but no abdominal pain, no constipation, no heartburn and no diarrhea. Genitourinary: no dysuria. Integumentary: no skin rash. Musculoskeletal: no limb swelling. Psychiatric: Normal.. Active Problems 1. Bilateral knee pain (719.46) (M25.561,M25.562) 2. Cancer of tongue (141.9) (C02.9) 3. Constipation, acute (564.00) (K59.00) 4. Dyslipidemia (272.4) (E78.5) 5. Hypertension (401.9) (I10) 6. Hypogonadism, testicular (257.2) (E29.1) 7. Palpable mass of neck (784.2) (R22.1) 8. Seasonal allergies (477.9) (J30.2) 9. Smokeless tobacco use (305.1) (Z72.0) 10. Type 2 diabetes mellitus (250.00) (E11.9) Past [...] MG TABS; TAKE 1 TABLET DAILY; Therapy: [id number] to (Evaluate:[id number]) Recorded Dispense: 30 Days ; #:30 Tablet; Refill: 0; MICHEL = N; Record; Last Updated By: Ivone Stokes; 11/30/2014 4:03:27 PM 2. BD Insulin Syringe 25G X 5/8 1 ML; USE WITH INSULIN INJECTIONS BEFORE MEALS AND AT BEDTIME; Therapy: 14Mar2017 to (Last Rx:14Mar2017) Requested for: 14Mar2017 Ordered Rx By: León Sanchez; Dispense: 0 Days ; #:1 X 100 Unit Box; Refill: 2; For: Type 2 diabetes mellitus; MICHEL = N; Verified Transmission to [facility]; Msg to Pharmacy: DX E 11.9; Last Updated By: Progeny Solar; 03/14/2017 9:17:25 AM 3. Blood Glucose Monitor System w/Device Kit; PLEASE DISPENSE GLUCOMETER DEVICE THAT [employer] INSURANCE WILL COVER. PT TO TEST BLOOD SUGAR BEFORE MEALS AND AT BEDTIME; Therapy: 14Mar2017 to (Last Rx:14Mar2017) Requested for: 14Mar2017 Ordered Rx By: Lenó Sanchez; Dispense: 0 Days ; #:1 Kit; Refill: 0; For: Type 2 diabetes mellitus; MICHEL = N; Verified Transmission to [facility]; Msg to Pharmacy: dx E 11.9; Last Updated By: Progeny Solar; 03/14/2017 10:40:55 AM 4. Blood Glucose Test In Vitro Strip; PLEASE DISPENSE TEST STRIPS THAT PTS INSURANCE WILL COVER, PT TO TEST BEFORE MEALS AND AT BEDTIME; Therapy: 14Mar2017 to (Last Rx:14Mar2017) Requested for: 14Mar2017 Ordered Rx By: León Sanchez; Dispense: 0 Days ; #:1 X 100 Strip Box; Refill: 0; For: Type 2 diabetes mellitus; MICHEL = N; Verified Transmission to [facility]; Msg to Pharmacy: [place] E 11.9; Last Updated By: Progeny Solar; 03/14/2017 10:40:57 AM 5. HumaLOG 100 UNIT/ML Subcutaneous Solution; INJECT PER SLIDING SCALE 1/2 HOUR BEFORE MEALS & AT HS 150-199= 2U, 200-249= 4 U, 250-299= 6 U, 300-349= 8 U, 350-399=10 U, 400-450= 12 U; Therapy: 14Mar2017 to (Last Rx:14Mar2017) Requested for: 14Mar2017 Ordered Rx By: León Sanchez; Dispense: 0 Days ; #:1 X 10 ML Vial; Refill: 2; For: Type 2 diabetes mellitus; MICHEL = N; Verified Transmission to [facility] 435; Last Updated By: Progeny Solar; 03/14/2017 9:17:24 AM 6. Invokana 300 MG Oral Tablet; TAKE 1 TABLET BY MOUTH DAILY; Therapy: 08May2017 to (Evaluate:[id number]) Recorded Dispense: 0 Days ; #: Sufficient Tablet; Refill: 0; MICHEL = N; Record; Last Updated By: Yamilex Smith; 05/08/2017 7:02:10 AM 7. Lactulose 10 GM/15ML Oral Solution; TAKE 15 ML DAILY; Therapy: 08May2017 to (Evaluate:[id number]) Requested for: 08May2017; Last Rx:08May2017 Ordered Rx By: León Sanchez; Dispense: 16 Days ; #:1 X 236 ML Bottle; Refill: 0; For: Constipation, acute; MICHEL = N; Verified Transmission to [place] [address]; Last Updated By: Francesca Pedraza; 05/08/2017 9:29:39 AM 8. Lancets 30G; PLEASE DISPENSE LANCETS THAT PTS INSURANCE WILL COVER, PT TO TEST BEFORE MEALS AND AT BEDTIME; Therapy: 14Mar2017 to (Last Rx:14Mar2017) Requested for: 14Mar2017 Ordered Rx By: León Sanchez; Dispense: 0 Days ; #:1 X 100 Unit Box; Refill: 2; For: Type 2 diabetes mellitus; MICHEL = N; Verified Transmission to [facility]; Last Updated By: Progeny Solar;03/14/2017 10:40:54 AM 9. Lisinopril 10 MG Oral Tablet; TAKE ONE TABLET BY MOUTH ONCE DAILY FOR BLOOD PRESSURE; Therapy: [id number] to (Evaluate:[id number]) Requested for: 95Psn5966; Last Rx:[id number] Ordered Rx By: Prudence Paredes; Dispense: 90 Days ; #:90 Tablet; Refill: 1; For: Hypertension; MICHEL = N; Verified Transmission to [facility]; Msg to Pharmacy: PT MUST HAVE APPT FOR FURTHER REFILLS; Last Updated By: Progeny Solar; 12/02/2016 9:26:43 AM 10. MetFORMIN HCl - 500 MG Oral Tablet; TAKE TWO TABLETS BY MOUTH TWICE DAILY; Therapy: 29Jan2012 to (Evaluate:[id number]) Requested for: 15Jun2017; Last Rx:15Jun2017 Ordered Rx By: León Sanchez; Dispense: 90 Days ; #:360 Tablet; Refill: 1; For: Type 2 diabetes mellitus; MICHEL = N; Verified Transmission to [facility]; Last Updated By: Corinne Morgan; 06/15/2017 11:50:49 AM Allergies 1. Codeine Sulfate TABS Updated By: Lesly Lovett; 02/13/2017 8:09:49 AM 2. Darvocet-N 100 TABS Recorded By: Deepthi Hernandez; 11/29/2011 4:45:28 PM Vitals Recorded: 22Jun2017 02:24PM Temperature 87.7 F Heart Rate 98 Respiration 16 Systolic 102 Diastolic 62 O2 Saturation 98 Height 5 ft 9 in Weight 132 lb BMI Calculated 19.49 BSA Calculated 1.73 Physical Exam Constitutional General appearance: No acute distress, well appearing and well nourished. Eyes Conjunctiva and lids: No swelling, erythema, or discharge. Pupils and irises: Equal, round and reactive to light. Ears, Nose, Mouth, and Throat External inspection of ears and nose: Abnormal. boggy with some dried blood. Otoscopic examination: Abnormal. bilateral thick mucoid post tm fluid with no erythema. Oropharynx: Abnormal. bilateral surgically healing scars.. Pulmonary upper chest with port. Auscultation of lungs: Clear to auscultation. Cardiovascular Auscultation of heart: Normal rate and rhythm, normal S1 and S2, without murmurs. Examination of extremities for edema and/or varicosities: Normal. Abdomen Abdomen: Non-tender, no masses. soft non tender no mass.. Lymphatic Palpation of lymph nodes in neck: No lymphadenopathy. Skin Skin and subcutaneous tissue: Normal without rashes or lesions. Neurologic Cranial nerves: Cranial nerves 2-12 intact. Reflexes: 2+ and symmetric. Sensation: No sensory loss. Psychiatric Orientation to person, place and time: Normal. Mood and affect: Normal. Results/Data 22 Jun 2017 2:47 PM *A1C In Office A1C 8.3 Assessment 1. Type 2 diabetes mellitus (250.00) (E11.9) 2. Acute bronchitis (466.0) (J20.9) Plan Acute bronchitis 1. Azithromycin 250 MG Oral Tablet; TAKE 2 TABLETS ON DAY 1 THEN TAKE 1 TABLET A DAY FOR 4 DAYS Rx By: León Sanchez; Dispense: 0 Days ; #:6 Tablet; Refill: 0; For: Acute bronchitis; MICHEL = N; Verified Transmission to [place] [address]; Last Updated By: [facility] [employer] 06/22/2017 3:17:30 PM 2. Montelukast Sodium 10 MG Oral Tablet; TAKE 1 TABLET AT BEDTIME Rx By: León Sanchez; Dispense: 30 Days ; #:30 Tablet; Refill: 2; For: Acute bronchitis; MICHEL = N; Verified Transmission to [place] [address]; Last Updated By: [employer]; 06/22/2017 3:17:32 PM 3. Ondansetron 4 MG Oral Tablet Disintegrating; DISSOLVE ONE TABLET IN MOUTH EVERY 6 HOURS NEEDED Rx By: León Sanchez; Dispense: 0 Days ; #:12 Tablet; Refill: 0; For: Acute bronchitis; MICHEL = N;Verified Transmission to [place] [address]; Last Updated By: [facility] [employer] 06/22/2017 3:17:32 PM 4. PredniSONE 20 MG Oral Tablet; Take 2 daily for five days Rx By: León Sanchez; Dispense: 0 Days ; #:10 Tablet; Refill: 0; For: Acute bronchitis; MICHEL = N;Verified Transmission to [place] [address]; Last Updated By: [employer]; 06/22/2017 3:17:30 PM Type 2 diabetes mellitus 5. *A1C In Office; Status:Complete; Done: 22Jun2017 02:47PM Performed:In Office; Due:22Jul2017;Ordered; For:Type 2 diabetes mellitus; Ordered By:León Sanchez; 1) Acute bronchitis: he was just scoped and they claim a lot of sinus drainage he has just completed his radiation and chemo and will start zithromax, prednisone and add singular at night time to seeif this helps as well as giving him something for the nausea his hgba1-c today is 8 and improving but warned to watch for elevation with the steroid follow up in three months sooner if no change Signatures Electronically signed by : León Sanchez M.D.; Jun 23 2017 9:23AM 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 (Author) documented in this encounter Plan of Treatment Upcoming Encounters Date Type Department Care Team (Late st Contact Info) Description 06/09/2024 4:20 PM 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 Office Visit [facility] Family & Internal Medicine [facility] [address] [place] [address] [place] [address] [place] [address] documented as of this encounter Procedures Procedure Name Priority Date/Time Associated Diagnosis Comments HEMOGLOBIN, GLYCOSYLATED Routine 06/22/2017 2:47 PM 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 documented in this encounter Results * (ABNORMAL) HEMOGLOBIN, GLYCOSYLATED (06/22/2017 2:47 PM 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) HGB A1C 8.3(A) 4.2 - 6.5 % HbA1C [facility] TO EPIC CONVERSION 06/22/2017 2:47 PM 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 06/22/2017 2:47 PM 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 Narrative [facility] TO EPIC CONVERSION - 06/22/2017 2:47 PM 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 Result Communication: Call patient with results us León Sanchez MD LABORATORY Final Resul t [facility] TO EPIC CONVERSION documented in this encounter Visit Diagnoses Not on filedocumented in this encounter
--- OUTSIDE RECORDS SUMMARY | 2024-04-27 18:26 | XMS_ITS | Encounter Summary ---
Author Organization [facility] Address [facility] [place] 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 Sanchez is with ordering an MRI or a CT of the gallbladder? Patients states his last apt was last , and Dr. Sanchez said he would put in an orderto figure out if he had any gallbladder issues. Please advise and call the patients with any questions. Ashlee Jennings - 13 Sep 2017 12:09 PM TASK EDITED Pts informed that per Dr. Sanchez we can order an US of the gallbladder. Order has been placed and pts given number to call and schedule US. Plan 1. US ABDOMEN LIMITED RUQ; Status:Hold For - Scheduling; Requested for:13Sep2017; Perform:[facility] Radiology; Due:13Oct2017; Last Updated By:Ashlee Jennings; 09/13/2017 12:07:49 PM;Ordered; For:Abdominal pain; Ordered By:León Sanchez; Signatures Electronically signed by : Ashlee Jennings R.N.; Sep 13 2017 12:09PM EQUITY HOLDER (Author) documented in this encounter Plan of Treatment Upcoming Encounters Date Type Department Care Team (Late st Contact Info) Description 06/09/2024 4:20 PM EQUITY HOLDER [facility] [address] [place] [address] León Sanchez MD [address] [place] [address] documented as of this encounter Visit Diagnoses Not on filedocumented in this encounter
--- OUTSIDE RECORDS SUMMARY | 2024-04-27 18:26 | XMS_ITS | Encounter Summary ---
Author Organization [facility] Address [address] [place] [address]. [place] [address] [place] [address] Care Team Providers Care Poultry Boner Name Role Phone Unavailable Primary Care Provider Unavailabl e Encounter Details Date Type Department Care Team (Late st Contact Info) Description 10/18/2017 Abstract [facility] Family & Internal Medicine [facility] [address] [place] [address] [place] [address] [place], [place] [id number] Social History Tobacco Use Types Packs/Day Years Used Date Smoking Tobacco: Never Assessed Sex and Gender Information Value Date Recorded Sex Assigned at Not on file Legal Sex Male 6:22 PM CDT Gender Identity Not on file Sexual Orientation Straight 03/28/2018 4: 44 PM DINKER documented as of this encounter Last Filed Vital Signs Vital Sign Reading Time Taken Comments Blood Pressure 160/80 10/18/2017 4:35 PM CDT Pulse 92 10/18/2017 4:35 PM CDT Temperature - - Respiratory Rate - - Oxygen Saturation - - Inhaled Oxygen Concentration - - Weight 66.7 kg (147 lb) 10/18/2017 4:35 PM CDT Height 175.3 cm (5' 9 ) 10/18/2017 4:35 PM CDT Body Mass Index 21.71 10/18/2017 4:35 PM CDT documented in this encounter Progress Notes * León Sanchez MD - 10/18/2017 4:40 PM CDT Chief Complaint Patient here today with acute issue of what he thinks is anxiety. States he is not sob, but has moments of where he takes a gasp for air. Has noticed it right as hes starting to fall asleep. History of Present Illness Shortness of Breath: Sonny Singleton presents with complaints of shortness of breath. Associated symptoms include anxiety, but no dyspnea, no exercise intolerance, no fatigue, no palpitations, no weakness, no chest pain, no chest tightness, no choking sensation, no cough, no wheezing,no fever, no rhinorrhea, no sore throat, no weight gain and no edema. Review of Systems See HPI for pertinent positives. Constitutional: no fever, no recent weight gain, not feeling tired and no recent weight loss. ENT: no sore throat and no hoarseness. Cardiovascular: no chest pain and no palpitations. Respiratory: shortness of breath, but no cough, no shortness of breath during exertion and no wheezing. Gastrointestinal: no nausea. Integumentary: no skin rash. Musculoskeletal: no limb swelling. Neurological: no dizziness. Psychiatric: Normal.. Active Problems 1. Abdominal pain (789.00) (R10.9) 2. Acute bronchitis (466.0) (J20.9) 3. Acute sinusitis (461.9) (J01.90) 4. Bilateral knee pain (719.46) (M25.561,M25.562) 5. Bilateral shoulder pain (719.41) (M25.511,M25.512) 6. Cancer of tongue (141.9) (C02.9) 7. Cholecystolithiasis (574.20) (K80.20) 8. Constipation, acute (564.00) (K59.00) 9. Dyslipidemia (272.4) (E78.5) 10. Hypertension (401.9) (I10) 11. Hypogonadism, testicular (257.2) (E29.1) 12. Left shoulder pain (719.41) (M25.512) 13. Palpable mass of neck (784.2) (R22.1) 14. Seasonal allergies (477.9) (J30.2) 15. Shoulder pain, right (719.41) (M25.511) 16. Smokeless tobacco use (305.1) (Z72.0) 17. Type 2 diabetes mellitus (250.00) (E11.9) Past [...] MG TABS; TAKE 1 TABLET DAILY; Therapy: 30Nov2014 to (Evaluate:[id number]) Recorded Dispense: 30 Days ; #:30 Tablet; Refill: 0; MICHEL = N; Record; Last Updated By: Ivone Stokes; 11/30/2014 4:03:27 PM 2. MetFORMIN HCl - 500 MG Oral Tablet; TAKE TWO TABLETS BY MOUTH TWICE DAILY; Therapy: 29Jan2012 to (Evaluate:[id number]) Requested for: 15Jun2017; Last Rx:15Jun2017 Ordered Rx By: León Sanchez; Dispense: 90 Days ; #:360 Tablet; Refill: 1; For: Type 2 diabetes mellitus; MICHEL = N; Verified Transmission to [place] [address]; Last Updated By: [employer]; 06/15/2017 11:50:49 AM 3. Montelukast Sodium 10 MG Oral Tablet; TAKE 1 TABLET BY MOUTH ONCE DAILY AT BEDTIME; Therapy: 22Jun2017 to (Evaluate:[id number]) Requested for: 19Sep2017; Last Rx:19Sep2017 Ordered Rx By: León Sanchez; Dispense: 30 Days ; #:30 Tablet; Refill: 0; For: Acute bronchitis; MICHEL = N; Verified Transmission to [place] [address]; Last Updated By: [employer]; 09/19/2017 11:39:23 AM Allergies 1. Codeine Sulfate TABS Updated By: Lesly Lovett; 02/13/2017 8:09:49 AM 2. Darvocet-N 100 TABS Recorded By: Deepthi Hernandez; 11/29/2011 4:45:28 PM Vitals Recorded: [id number] 04:35PM Heart Rate 92 Respiration 18 Systolic 160 Diastolic 80 O2 Saturation 99 Height 5 ft 9 in Weight 147 lb BMI Calculated 21.71 BSA Calculated 1.81 Physical Exam Constitutional General appearance: No acute distress, well appearing and well nourished. Eyes Conjunctiva and lids: No swelling, erythema, or discharge. Pupils and irises: Equal, round and reactive to light. Ears, Nose, Mouth, and Throat Oropharynx: Normal with no erythema, edema, exudate or lesions. Pulmonary Respiratory effort: No increased work of breathing or signs of respiratory distress. Auscultation of lungs: Clear to auscultation. Cardiovascular Auscultation of heart: Normal rate and rhythm, normal S1 and S2, without murmurs. Examination of extremities for edema and/or varicosities: Normal. Lymphatic Palpation of lymph nodes in neck: No lymphadenopathy. Skin Skin and subcutaneous tissue: Normal without rashes or lesions. Neurologic Cranial nerves: Cranial nerves 2-12 intact. Psychiatric Orientation to person, place and time: Normal. Mood and affect: Normal. Assessment 1. Anxiety (300.00) (F41.9) Plan Anxiety 1. BusPIRone HCl - 10 MG Oral Tablet; one tablet three times a day as needed Rx By: León Sanchez; Dispense: 0 Days ; #:60 Tablet; Refill: 0; For: Anxiety; MICHEL = N; [facility]; Last Updated By: [employer]; 10/18/2017 5:05:06 PM 1) SOB: I think a lot of this is anxiety it only happens when he is going to sleep and never with exertion and no other symptoms will start buspar and follow up in a few weeks and if any other symptoms to go to the ER and consider cardiac workup but with recent surgery and no cardiac problem doubtful this is cardiac Signatures Electronically signed by : León Sanchez M.D.; Oct 20 2017 1:34PM DINKER (Author) documented in this encounter Plan of Treatment Upcoming Encounters Date Type Department Care Team (Late st Contact Info) Description 06/09/2024 4:20 PM DINKER Office Visit [facility] Family & Internal Medicine [address] [address] [place] [address] [place] [address] documented as of this encounter Visit Diagnoses Not on filedocumented in this encounter
--- OUTSIDE RECORDS SUMMARY | 2024-04-27 18:26 | XMS_ITS | Encounter Summary ---
Author Organization [facility] Address [address] [place] [address]. [place], [place] [address] [place] [address] Care Team Providers Care Stone Cleaner Name Role Phone Etienne Sanchez MD Primary Care Provider [phone] Reason for Referral * (Routine) - Closed Specialty Diagnoses / Procedures Referred By Hugo sharp Referred To Contact Diagnoses Chronic pain of both shoulders Procedures Joint Aspiration/Injection Etienne Sanchez MD [address] [place] [address] Phone: tel: fax: Referral ID Status Reason Start Date Expiration Date Visits Re quested Visits Authorized [id number] Closed 09/01/2018 10/03/2019 1 1 * (Routine) - Closed Specialty Diagnoses / Procedures Referred By Hugo sharp Referred To Contact Diagnoses Chronic pain of both shoulders Procedures Joint Aspiration/Injection Etienne Sanchez MD [address] [place] [address] Phone: tel: fax: Referral ID Status Reason Start Date Expiration Date Visits Re quested Visits Authorized [id number] Closed 09/01/2018 10/03/2019 1 1 Reason for Visit * Reason Comments Shoulder Pain c/o pain in both nguyễn ulders Encounter Details Date Type Department Care Team (Late st Contact Info) Description 08/30/2018 4:20 PM CDT Office Visit [facility] Family & Internal Medicine [address] [address] [place] [address] [place] [address] Shoulder Pain (c/o pain in both shoulders) Social History Tobacco Use Types Packs/Day Years [...] Sexual Orientation Straight 03/28/2018 4: 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 Not on file Not on file documented as of this encounter Last Filed Vital Signs Vital Sign Reading Time Taken Comments Blood Pressure 146/82 08/30/2018 3:55 PM CDT Pulse 83 08/30/2018 3:55 PM CDT Temperature - - Respiratory Rate 18 08/30/2018 3:55 PM CDT Oxygen Saturation 98% 08/30/2018 3:55 PM CDT Inhaled Oxygen Concentration - - Weight 68 kg (150 lb) 08/30/2018 3:55 PM CDT Height 175.3 cm (5' 9 ) 08/30/2018 3:55 PM CDT Body Mass Index 22.15 08/30/2018 3:55 PM CDT documented in this encounter Patient Instructions * Patient Instructions* Etienne Sanchez MD - 08/30/2018 4:20 PM CDT Bilateral shoulder pain: rest, ice, gentle range of motion exercises and if no change or any redness or swelling to notify the office documented in this encounter Progress Notes * Etienne Sanchez MD - 08/30/2018 4:20 PM CDTAssociated Order(s): Joint Aspiration/Injection; Joint Aspiration/Injection Post-Procedure Diagnose(s): Shoulder pain Images from the original note were not included. Office Progress Note Reason for Visit: Shoulder Pain (c/o pain in both shoulders) History of Present Illness: Pt with chronic shoulder pain for several years worst over the last few months pain is constant 5/10 achy worst with overhead lifting or movements denies warmth, swelling, redness no history of rotator cuff tear, RA, trauma ROS: Review of Systems Constitutional: Negative for fever. HENT: Negative for sore throat. Respiratory: Negative for cough, shortness of breath and stridor. Cardiovascular: Negative for chest pain and palpitations. Gastrointestinal: Negative for heartburn, nausea and vomiting. Musculoskeletal: Positive for joint pain and myalgias. Negative for back pain and neck pain. Skin: Negative for rash. Neurological: Negative for dizziness, tremors and headaches. Psychiatric/Behavioral: Negative for depression. Medications: Current Outpatient Medications: ??? aspirin 81 MG tablet, Take 1 tablet by mouth daily., Disp: , Rfl: ??? clobetasol 0.05 % Cream, Apply 1 Dose topically 2 (two) times daily., Disp: , Rfl: ??? lisinopril 10 MG tablet, Take 1 tablet (10 mg total) by mouth daily., Disp: 90 tablet, Rfl: 0 ??? METFORMIN 500 MG tablet, TAKE 2 TABLETS BY MOUTH TWICE DAILY, Disp: 360 tablet, Rfl: 1 ??? MONTELUKAST 10 MG tablet, TAKE 1 TABLET BY MOUTH ONCE DAILY AT BEDTIME, Disp: 90 tablet, Rfl: 0 Allergies: Allergies Allergen Reactions ??? Codeine Unknown ??? Propoxyphene Unknown Medical History: Past Medical History: Diagnosis Date ??? Arthritis ??? Cancer (CMS/HCC) ??? Diabetes mellitus (CMS/HCC) Surgical History: Past Surgical History: Procedure Laterality Date ??? ABDOMINAL SURGERY Social History: Social History Socioeconomic History ??? Marital status: Spouse name: Lisette ??? Number of children: 4 ??? Years of education: Not on file ??? Highest education level: High school graduate Occupational History ??? 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 Financial resource strain: Not [...] file Gets together: Not on file Attends anglican service: Not on file Active member of [...] equal, round, and reactive to light. Neck: Neck supple. No JVD present. No thyromegaly present. Cardiovascular: Normal rate, regular rhythm, normal heart sounds and intact distal pulses. Pulmonary/Chest: Effort normal and breath sounds normal. No respiratory distress. Musculoskeletal: Bilateral shoulder pain with external rotation, and extension with no effusion, calor or deformity no ac tenderness and no weakness Neurological: He is alert and oriented to person, place, and time. He has normal reflexes. Skin: Skin is warm. No rash noted. Psychiatric: He has a normal mood and affect. His behavior is normal. Nursing note and vitals reviewed. Filed Vitals: 08/30/18 1555 BP: 146/82 Pulse: 83 Resp: 18 SpO2: 98% Weight: 68 kg (150 lb) Height: 5' 9 (1.753 m) Diagnoses/Impression: 1. Shoulder pain triamcinolone acetonide (KENALOG-40) injection 40 mg DISCONTINUED: triamcinolone acetonide (KENALOG-40) injection 40 mg Joint Aspiration/Injection Date/Time: 09/01/2018 9:34 AM Performed by: Etinene Sanchez MD Authorized by: Etienne Sanchez MD [...] posterior Triamcinolone amount: 40 mg Patient tolerance: Patient tolerated the procedure well with no immediate complications Joint Aspiration/Injection Date/Time: 09/01/2018 9:35 AM Performed by: Etienne Sanchez MD Authorized [...] posterior Triamcinolone amount: 40 mg Patient tolerance: Patient tolerated the procedure well with no immediate complications Recommendations and Plan: 1. Shoulder pain - triamcinolone acetonide (KENALOG-40) injection 40 mg PCP: ETIENNE SANCHEZ MD 09/01/2018 documented in this encounter Plan of Treatment Upcoming Encounters Date Type Department Care Team (Late st Contact Info) Description 06/09/2024 4:20 PM INGREDIENT SCALER HELPER Office Visit [facility] Family & Internal Medicine [facility] [address] [place] [address] Etienne Sanchez [place] [id number] [place] [id number] documented as of this encounter Procedures Procedure Name Priority Date/Time Associated Diagnosis Comments JOINT ASPIRATION/INJECTIO N Routine 08/30/2018 4:20 PM CDT Chronic pain of both shoulders JOINT ASPIRATION/INJECTIO N Routine 08/30/2018 4:20 PM CDT Chronic pain of both shoulders documented in this encounter Results * Joint Aspiration/Injection (08/30/2018 4:20 PM CDT) Narrative Etienne Sanchez MD - 08/30/2018 4:20 PM CDT Etienne Sanchez MD ? 09/01/2018 ??9:36 AM Joint Aspiration/Injection Date/Time: 09/01/2018 9:35 AM Performed by: Etienne Sanchez MD Authorized [...] posterior Triamcinolone amount: 40 mg Patient tolerance: Patient tolerated the procedure well with no immediate complications us Etienne Sanchez MD PROCEDURE/MINOR SURGICAL OR DERABLES Final Result * Joint Aspiration/Injection (08/30/2018 4:20 PM CDT) Narrative Etienne Sanchez MD - 08/30/2018 4:20 PM CDT Etienne Sanchez MD ? 09/01/2018 ??9:36 AM Joint Aspiration/Injection Date/Time: 09/01/2018 9:34 AM Performed by: Etienne Sanchez MD Authorized [...] posterior Triamcinolone amount: 40 mg Patient tolerance: Patient [...] acetonide (KENALOG-40) injection 40 mg 40 mg, Intramuscular, Once, 1 dose, On Sun05/20/18 at 0000, Shake WellIndications:Chronic pain of both knees Given 08/30/2018 4:27 PM CDT 40 mg Other triamcinolone acetonide (KENALOG-40) injection 40 mg 40 mg, Intramuscular, Once, 1 dose, On Sun08/30/18 at 1645, Shake WellIndications:Chronic pain of both shoulders Given 08/30/2018 4:28 PM CDT 40 mg Other documented in this encounter Care Teams Stone Cleaner Relationship Specialty [place] [address] [place] [address] PCP - General FAMILY PRACTICE 02/27/18 documented as of this encounter
--- OUTSIDE RECORDS SUMMARY | 2024-04-27 18:26 | XMS_ITS | Encounter Summary ---
Author Organization [facility] Address [facility] 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
--- OUTSIDE RECORDS SUMMARY | 2024-04-27 18:26 | XMS_ITS | Encounter Summary ---
Author Organization [facility] Address [address] [place] [address]. 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 Not on file Not on file documented as of this encounter Plan of Treatment Upcoming Encounters Date Type Department Care Team (Late Contact Info) Description 06/09/2024 4:20 PM HOME TEACHING GRADES 9 THRU 12 TEACHER Office Visit [facility] Family & Internal Medicine [address] [address] León Sanchez MD [address] [place] [address] documented as of this encounter Visit Diagnoses Not on filedocumented in this encounter Care Teams Insurance Examining Clerk Relationship Specialty Start [place] [address] [place] [address] PCP - General FAMILY PRACTICE 02/27/18 documented as of this encounter
--- OUTSIDE RECORDS SUMMARY | 2024-04-27 18:26 | XMS_ITS | Encounter Summary ---
Author Organization [facility] Address [address] [place] [address]. 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 Not on file Not on file documented as of this encounter Plan of Treatment Upcoming Encounters Date Type Department Care Team (Late st Contact Info) Description 06/09/2024 4:20 PM DIVERSIFIED CROPS II FARMWORKER Office Visit [facility] [address] [place] [address] [place] [address] [place] [address] documented as of this encounter Visit Diagnoses Not on filedocumented in this encounter Care Teams Bass Fisher Relationship Specialty Start [place] [address] [place] [address] PCP - General FAMILY PRACTICE 02/27/18 documented as of this encounter
--- OUTSIDE RECORDS SUMMARY | 2024-04-27 18:26 | XMS_ITS | Encounter Summary ---
Author Organization [facility] Address [address] [place] [address]. [place] [address] [place] [address] Care Team Providers Care Hospital Sales Representative Name Role Phone Etienne Sanchez MD Primary Care Provider [phone] Reason for Visit * Reason Comments Skin Problem c/o dry skin that is getting is bruised and torn Encounter Details Date Type Department Care Team (Late st Contact Info) Description 10/04/2018 11:00 AM CDT Office Visit [facility] Family & Internal Medicine [facility] [address] [place] [address] Etienne Sanchez [place] [id number] [place] [address] Skin Problem (c/o dry skin that is getting is bruised and torn ) Social History Tobacco Use Types Packs/Day [...] Sexual Orientation Straight 03/28/2018 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 Not on file Not on file documented as of this encounter Last Filed Vital Signs Vital Sign Reading Time Taken Comments Blood Pressure 142/88 10/04/2018 10:46 AM CDT Pulse 77 10/04/2018 10:46 AM CDT Temperature - - Respiratory Rate 16 10/04/2018 10:46 AM CDT Oxygen Saturation 98% 10/04/2018 10:46 AM CDT Inhaled Oxygen Concentration - - Weight 65.8 kg (145 lb) 10/04/2018 10:46 AM CDT Height 175.3 cm (5' 9 ) 10/04/2018 10:46 AM CDT Body Mass Index 21.41 10/04/2018 10:46 AM CDT documented in this encounter Patient Instructions * Patient Instructions* Etienne Sanchez MD - 10/04/2018 11:00 AM CDT I have explained to him he can try to protect himself wearing long sleeve shirts, try to gain some weight and lubriderm documented in this encounter Progress Notes * Etienne Sanchez MD - 10/04/2018 11:00 AM CDT Images from the original note were not included. Office Progress Note Reason for Visit: Skin Problem (c/o dry skin that is getting is bruised and torn ) History of Present Illness: Pt states has noticed thin skin on his forearms and easy bruising on them as well with no other areas of bruising and no hematuria, hematochezia, easy gum bleeding and no history of coagulopathy ROS: Review of Systems Constitutional: Negative for fever, malaise/fatigue and weight loss. HENT: Negative for nosebleeds. Respiratory: Negative for cough and shortness of breath. Cardiovascular: Negative for chest pain and leg swelling. Gastrointestinal: Negative for nausea and vomiting. Musculoskeletal: Negative for joint pain and myalgias. Skin: Easy bruising Neurological: Negative for headaches. Endo/Heme/Allergies: Bruises/bleeds easily. Psychiatric/Behavioral: The patient is not nervous/anxious. Medications: Current Outpatient Medications: ??? aspirin 81 [...] High school graduate Occupational History ??? 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 Financial resource strain: Not [...] file Gets together: Not on file Attends zoroastrian service: Not on file Active member of [...] time. He appears well- developed and well-nourished. Eyes: Conjunctivae are normal. Pupils are equal, round, and reactive to light. No scleral icterus. Neck: Neck supple. No JVD present. Cardiovascular: Normal rate, regular rhythm, normal heart sounds and intact distal pulses. Pulmonary/Chest: Effort normal and breath sounds normal. He has no rales. Abdominal: He exhibits no mass. Neurological: He is alert and oriented to person, place, and time. He has normal reflexes. Skin: Skin is warm. Several ecchymotic lesions on both dorsal forearms and distal anterior legs with no other lesion ontrunk, neck or head Psychiatric: He has a normal mood and affect. His behavior is normal. Nursing note and vitals reviewed. Filed Vitals: 10/04/18 1046 BP: 142/88 Pulse: 77 Resp: 16 SpO2: 98% Weight: 65.8 kg (145 lb) Height: 5' 9 (1.753 m) Diagnoses/Impression: 1. Hypertension, unspecified type COMPREHENSIVE METABOLIC PANEL VENIPUNC ARM DRAW 2. Type 2 diabetes mellitus without complication, with long-term current use of insulin (CMS/[facility]) HEMOGLOBIN, GLYCOSYLATED VENIPUNC ARM DRAW 3. Dyslipidemia LIPID PANEL VENIPUNC ARM DRAW Recommendations and Plan: 1. Hypertension, unspecified type - COMPREHENSIVE METABOLIC PANEL; Future - COMPREHENSIVE METABOLIC PANEL - VENIPUNC ARM DRAW 2. Type 2 diabetes mellitus without complication, with long-term current use of insulin (CMS/HCC) - HEMOGLOBIN, GLYCOSYLATED; Future - HEMOGLOBIN, GLYCOSYLATED - VENIPUNC ARM DRAW 3. Dyslipidemia - LIPID PANEL; Future - LIPID PANEL - VENIPUNC ARM DRAW PCP: ETIENNE SANCHEZ MD 10/04/2018 * Etienne Sanchez MD - 10/04/2018 11:00 AM CDT Other than mildly elevated total cholesterol labs look good hgba1-c is in range at 6.6 continue diet and exercise documented in this encounter Plan of Treatment Upcoming Encounters Date Type Department Care Team (Late st Contact Info) Description 06/09/2024 4:20 PM RECORD PRESS SUPERVISOR Office Visit [facility] Family & Internal Medicine [facility] [address] [place] [address] Etienne Sanchez MD [address] [place] [address] documented as of this encounter Procedures Procedure Name Priority Date/Time Associated Diagnosis Comments HEMOGLOBIN, GLYCOSYLATED Routine 10/04/2018 11:14 AM CDT Type 2 diabetes mellitus without complication, with long-term current use of insulin ([facility]) COMPREHENSIVE METABOLIC PANEL Routine 10/04/2018 11:14 AM CDT Hypertension, unspecified type LIPID PANEL Routine 10/04/2018 11:14 AM CDT Dyslipidemia COLLECTION VENOUS BLOOD VENIPUNCTURE Routine 10/04/2018 Hypertension, unspecified type Type 2 diabetes mellitus without complication, with long-term current use of insulin ([facility]) Dyslipidemia documented in this encounter Results * (ABNORMAL) HEMOGLOBIN, GLYCOSYLATED (10/04/2018 11:14 AM CDT) HGB A1C 6.6(H) <5.7 % of total Hgb [facility] Comment: For someone without known diabetes, a hemoglobin A1c value of 6.5% or greater indicates that they may have diabetes and this should be confirmed with a follow-up test. For someone with known diabetes, a value <7% indicates that their diabetes is well controlled and a value greater than or equal to 7% indicates suboptimal control. A1c targets should be individualized based on duration of diabetes, age, comorbid conditions, and other considerations. Currently, no consensus exists regarding use of hemoglobin A1c for diagnosis of diabetes for children. ?? 10/04/2018 11:1 4 AM CDT 10/05/2018 4:51 AM CDT Narrative Resulting Agency Comment Performing Organization Information: ?Site ID: [place] ?Name: [facility] ?Address: [address] [place] [address] ?Director: Chapito Schulz D.O., MPH us Etienne Sanchez MD LABORATORY Final Resul t [facility] * (ABNORMAL) LIPID PANEL (10/04/2018 11:14 AM CDT) [facility] CHOLESTEROL 222(H) <200 mg/dL [facility] HDL 45 >40 mg/dL [facility] TRIGLYCERIDES 110 <150 mg/dL [facility] LDL (CALCULATED) 154(H) mg/dL (calc) [facility] Comment: Reference range: <100 Desirable range <100 mg/dL for primary prevention; ?? <70 mg/dL for patients with CHD or diabetic patients with > or = 2 CHD risk factors. LDL-C is now calculated using the Frank-Zhen calculation, which is a validated novel method providing better accuracy than the Friedewald equation in the estimation of LDL-C. Frank ALVAREZ et al. VERNON. 2013;310(19): 4074-9895 (http://education.[employer].Petcube/faq/WBQ013) CHOL/HDL RATIO 4.9 <5.0 (calc) [facility] NON HDL CHOLESTEROL 177(H) <130 mg/dL (calc) [facility] Comment: For patients with diabetes plus 1 major ASCVD risk factor, treating to a non-HDL-C goal of <100 mg/dL (LDL-C of <70 mg/dL) is considered a therapeutic option. 10/04/2018 11:1 4 AM CDT 10/05/2018 4:51 AM CDT Narrative Resulting Agency Comment Performing Organization Information: ?Site ID: [place] ?Name: [facility] ?Address: [address] [place] [address] ?Director: Chapito Schulz D.O., MPH us Etienne Sanchez MD LABORATORY Final Resul t [facility] * (ABNORMAL) COMPREHENSIVE METABOLIC PANEL (10/04/2018 11:14 AM CDT) GLUCOSE 165(H) 65 - 99 mg/dL [facility] Comment: ? Fasting reference interval For someone without known diabetes, a glucose value >125 mg/dL indicates that they may have diabetes and this should be confirmed with a follow-up test. BUN 15 7 - 25 mg/dL [facility] CREATININE S/P/B 1.19 0.70 - 1.33 mg/dL [facility] Comment: For patients >49 years of age, the reference limit for Creatinine is approximately 13% higher for people identified as -Lao. EGFR NON-AFR. AMER. 66 > OR = 60 mL/min/1 .73m2 [facility] EGFR AFR. AMER. 77 > OR = 60 mL/min/1 .73m2 [facility] BUN CREATININE RATIO NOT APPLICABLE 6 - 22 (calc) [facility] SODIUM S/P/B 142 135 - 146 mmol/L [facility] POTASSIUM S/P/B 4.4 3.5 - 5.3 mmol/L [facility] CHLORIDE S/P/B 106 98 - 110 mmol/L [facility] CO2 27 20 - 32 mmol/L [facility] CALCIUM S/P/B 9.2 8.6 - 10.3 mg/dL [facility] TOTAL PROTEIN S/P/B 6.5 6.1 - 8.1 g/dL [facility] ALBUMIN S/P/B 4.0 3.6 - 5.1 g/dL [facility] GLOBULIN 2.5 1.9 - 3.7 g/dL (calc) [facility] ALBUMIN/GLOBULIN RATIO 1.6 1.0 - 2.5 (calc) [facility] BILIRUBIN TOTAL (FLUID) 1.4(H) 0.2 - 1.2 mg/dL [facility] ALK PHOS 53 40 - 115 U/L [facility] AST 16 10 - 35 U/L [facility] ALT 14 9 - 46 U/L [facility] 10/04/2018 11:1 4 AM CDT 10/05/2018 4:51 AM CDT Narrative Resulting Agency Comment Performing Organization Information: ?Site ID: [place] ?Name: [facility] ?Address: [address] [place], [place] [address]ner [facility] [place] [address] ?Director: Chapito Schulz D.O., MPH us Etienne Sanchez MD LABORATORY Final Resul t [facility] * VENIPUNC ARM DRAW (10/04/2018) us Etienne Sanchez MD PROCEDURES Final Resul t documented in this encounter Visit Diagnoses Diagnosis Hypertension, unspecified type- Primary Type 2 diabetes mellitus without complication, with long-term current use of insulin ([facility]) Dyslipidemia Other and unspecified hyperlipidemia Ecchymosis Other specified circulatory system disorders documented in this encounter Care Teams Hospital Sales Representative Relationship Specialty [place] [address] [place] [address] PCP - General FAMILY PRACTICE 02/27/18 documented as of this encounter
--- OUTSIDE RECORDS SUMMARY | 2024-04-27 18:26 | XMS_ITS | Encounter Summary ---
Author Organization [facility] Address [facility] 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
--- OUTSIDE RECORDS SUMMARY | 2024-04-27 18:26 | XMS_ITS | Encounter Summary ---
Author Organization [facility] Address [facility] [address] [place] [address] Care Team Providers Care Ham Boner Name Role Phone Unavailable Primary Care Provider Unavailabl e Encounter Details Date Type Department Care Team (Latest Contact Info) Description 03/19/2017 Abstract [facility] Social History Tobacco Use Types Packs/Day Years Used Date Smoking Tobacco: Never Assessed Sex and Gender Information Value Date Recorded Sex Assigned at Not on file Legal Sex Male 6:22 PM CDT Gender Identity Not on file Sexual Orientation Straight 03/28/2018 4: 44 PM DIRECTOR OF INCOME TAX documented as of this encounter Plan of Treatment Upcoming Encounters Date Type Department Care Team (Late st Contact Info) Description 06/09/2024 4:20 PM DIRECTOR OF INCOME TAX Office Visit [facility] Family & Internal Medicine [facility] [address] [place] [address] [place] [address] [place] [address] documented as of this encounter Visit Diagnoses Not on filedocumented in this encounter
--- OUTSIDE RECORDS SUMMARY | 2024-04-27 18:26 | XMS_ITS | Encounter Summary ---
Author Organization [facility] Address [address] [place] [address]. [place], [place] [address] [place] [address] Care Team Providers Care Realtime Reporter Name Role Phone Unavailable Primary Care Provider Unavailabl e Encounter Details Date Type Department Care Team (Latest Contact Info) Description 11/02/2017 Abstract [facility] Social History Tobacco Use Types Packs/Day Years Used Date Smoking Tobacco: Never Assessed Sex and Gender Information Value Date Recorded Sex Assigned at Not on file Legal Sex Male 6:22 PM CDT Gender Identity Not on file Sexual Orientation Straight 03/28/2018 4: 44 PM CHIEF ACCOUNTANT documented as of this encounter Progress Notes * Kareen Troy Md, MD - 11/02/2017 10:22 AM CDT Message Recorded as Task Date: 11/02/2017 10:10 AM, Created By: Giuliana Davis Task Name: Informational Assigned To: [facility] Nurse Team Regarding Patient: Sonny Singleton, Status: Active Comment: Giuliana Davis - 02 Nov 2017 10:10 AM TASK CREATED Caller: Dr. Collado's Offic Dr. Collado's office called and stated that this patient did not keep his appointment today. Ashlee Jennings - 02 Nov 2017 10:[address] Sanchez informed Signatures Electronically signed by : Ashlee Jennings R.N.; Nov 02 2017 10:22AM CHIEF ACCOUNTANT (Author) documented in this encounter Plan of Treatment Upcoming Encounters Date Type Department Care Team (Late st Contact Info) Description 06/09/2024 4:20 PM CHIEF ACCOUNTANT Office Visit [facility] Family & Internal Medicine [address] [address] [place] [address] [place] [address] documented as of this encounter Visit Diagnoses Not on filedocumented in this encounter
--- OUTSIDE RECORDS SUMMARY | 2024-04-27 18:26 | XMS_ITS | Encounter Summary ---
Author Organization [facility] Address [address] [place] [address]. 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 Not on file Not on file documented as of this encounter Plan of Treatment Upcoming Encounters Date Type Department Care Team (Late st Contact Info) Description 06/09/2024 4:20 PM TUBE PULLER Office Visit [facility] Family & Internal Medicine [facility] [address] [place] [address] [place] [address] [place] [address] documented as of this encounter Visit Diagnoses Not on filedocumented in this encounter Care Teams Fundraising Assistant Relationship Specialty Start Date [place] Date [place] [address] [place] [address] PCP - General FAMILY PRACTICE 02/27/18 documented as of this encounter
--- OUTSIDE RECORDS SUMMARY | 2024-04-27 18:26 | XMS_ITS | Encounter Summary ---
Author Organization [facility] Address [address] [place] [address]. [place], [place] [address] [place] [address] Care Team Providers Care Vegetable Farm Manager Name Role Phone Etienne Sanchez MD Primary Care Provider [phone] Reason for Referral * (Routine) - Closed Specialty Diagnoses / Procedures Referred By Contac t Referred To Contact Diagnoses Chronic pain of both knees Procedures Joint Aspiration/[place] [address] [place] [address] Phone: tel: fax: Referral ID Status Reason Start Date Expiration Date Visits Re quested Visits Authorized [id number] Closed 05/20/2018 06/18/2019 1 1 TY DISTRICT CUSTOMS DIRECTOR * (Routine) - Closed Specialty Diagnoses / Procedures Referred By Contac t Referred To Contact Diagnoses Chronic pain of both knees Procedures Joint Aspiration[place] [address] [place] [address] Phone: tel: fax: Referral ID Status Reason Start Date Expiration Date Visits Re quested Visits Authorized [id number] Closed 05/20/2018 06/18/2019 1 1 TY DISTRICT CUSTOMS DIRECTOR * (Routine) - Closed Specialty Diagnoses / Procedures Referred By Contac t Referred To Contact Procedures Joint Aspiration/[place] [address] [facility] [place] [address] Phone: tel: fax: Referral ID Status Reason Start Date Expiration Date Visits Re quested Visits Authorized [id number] Closed 05/20/2018 06/18/2019 1 1 TY DISTRICT CUSTOMS DIRECTOR Reason for Visit * Reason Comments Procedure bilateral knee injec tions Encounter Details Date Type Department Care Team (Late st Contact Info) Description 05/20/2018 4:00 PM DEPUTY DISTRICT CUSTOMS DIRECTOR Office Visit [facility] Family & Internal Medicine [facility] [address] [place] [address] [place] [address] [place] [address] Procedure (bilateral knee injections) Social History Tobacco Use Types [...] Sexual Orientation Straight 03/28/2018 4: 44 PM DEPUTY DISTRICT CUSTOMS DIRECTOR 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 file Not on file documented as of this encounter Last Filed Vital Signs Vital Sign Reading Time Taken Comments Blood Pressure 124/66 05/20/2018 4:01 PM DEPUTY DISTRICT CUSTOMS DIRECTOR Pulse 80 05/20/2018 4:01 PM DEPUTY DISTRICT CUSTOMS DIRECTOR Temperature 37.1 ??C (98.7 ??F) 05/20/2018 4:01 PM CS T Respiratory Rate 16 05/20/2018 4:01 PM DEPUTY DISTRICT CUSTOMS DIRECTOR Oxygen Saturation 98% 05/20/2018 4:01 PM DEPUTY DISTRICT CUSTOMS DIRECTOR Inhaled Oxygen Concentration - - Weight 68.7 kg (151 lb 6.4 oz) 05/20/2018 4:01 P M DEPUTY DISTRICT CUSTOMS DIRECTOR Height 175.3 cm (5' 9 ) 05/20/2018 4:01 PM DEPUTY DISTRICT CUSTOMS DIRECTOR Body Mass Index 22.36 05/20/2018 4:01 PM DEPUTY DISTRICT CUSTOMS DIRECTOR documented in this encounter Patient Instructions * Patient Instructions* Etienne Sanchez MD - 05/20/2018 4:00 PM DEPUTY DISTRICT CUSTOMS DIRECTOR 1) Bilateral knee pain: rest, ice, gentle range of motion exercises and if any swelling or redness to notify the office TY DISTRICT CUSTOMS DIRECTOR documented in this encounter Progress Notes * Nishi Mota RN - 05/20/2018 4:00 PM CSTAddended by: NISHI MOTA on: 05/23/2018 01:00 PM Modules accepted: Orders TY DISTRICT CUSTOMS DIRECTOR * Etienne Sanchez MD - 05/20/2018 4:00 PM CSTAssociated Order(s): Joint Aspiration/Injection; Joint Aspiration/Injection Post-Procedure Diagnose(s): Chronic pain of both knees Images from the original note were not included. Office Progress Note Reason for Visit: Procedure (bilateral knee injections) History of Present Illness: Knee Pain Incident onset: chronic bilateral knee pain with no incident of traua noted The quality of the painis described as aching. The pain is at a severity of 6/10. The pain is moderate. The pain has been constant since onset. Pertinent negatives include no inability to bear weight, loss of motion, loss of sensation, muscle weakness or numbness. The symptoms are aggravated by weight bearing (bending ).He has tried ice, rest and NSAIDs for the symptoms. The treatment provided mild relief. ROS: Review of Systems Constitutional: Negative for malaise/fatigue and weight loss. HENT: Negative for sore throat. Respiratory: Negative for shortness of breath. Cardiovascular: Negative for claudication and leg swelling. Musculoskeletal: Positive for joint pain. Skin: Negative for rash. Neurological: Negative for sensory change, weakness and numbness. Endo/Heme/Allergies: Does not bruise/bleed easily. Psychiatric/Behavioral: Negative for depression. The patient is not nervous/anxious. Medications: Current Outpatient Medications: ??? aspirin 81 MG tablet, Take 1 tablet by mouth daily., Disp: , Rfl: ??? atorvastatin 20 MG tablet, Take 1 tablet by mouth daily., Disp: , Rfl: ??? clobetasol 0.05 % Cream, Apply 1 Dose topically 2 (two) times daily., Disp: , Rfl: ??? lisinopril 10 MG tablet, Take 1 tablet by mouth daily., Disp: , Rfl: ??? METFORMIN 500 MG tablet, TAKE 2 TABLETS BY MOUTH TWICE DAILY, Disp: 360 tablet, Rfl: 1 ??? montelukast 10 MG tablet, Take 1 tablet by mouth nightly at bedtime., Disp: , Rfl: Allergies: Allergies Allergen Reactions [...] ??? Highest education level: High school graduate Social Needs ??? Financial resource strain: Not on file ??? Food insecurity - worry: Not on file ??? Food insecurity - inability: Not on file ??? Transportation needs - medical: Not on file ??? Transportation needs - non-medical: Not on file Occupational History ??? 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 Smoking status: Never Smoker [...] and reactive to light. No scleral icterus. Cardiovascular: Normal rate, regular rhythm, normal heart sounds and intact distal pulses. Pulmonary/Chest: Effort normal and breath sounds normal. He has no rales. Musculoskeletal: Bilateral tibial plateau tenderness with no effusion or calor does have some joint space narrowing right > left Neurological: He is alert and oriented to person, place, and time. He has normal reflexes. Skin: Skin is warm and dry. No rash noted. Psychiatric: He has a normal mood and affect. His behavior is normal. Nursing note and vitals reviewed. Filed Vitals: 05/20/18 1601 BP: 124/66 Pulse: 80 Resp: 16 Temp: 98.7 ??F (37.1 ??C) TempSrc: Oral SpO2: 98% Weight: 68.7 kg (151 lb 6.4 oz) Height: 5' 9 (1.753 m) Joint Aspiration/Injection Date/Time: 05/20/2018 4:46 PM Performed by: Etienne Sanchez MD Authorized by: Etienne Sanchez MD Indications: pain Body area: knee Local anesthesia used: yes Anesthesia: local [...] with no immediate complications Joint Aspiration/Injection Date/Time: 05/20/2018 4:48 PM Performed by: Etienne Sanchez MD Authorized by: Etienne Sanchez MD Indications: pain Body area: knee Joint: right knee Local anesthesia used: yes Anesthesia: Local anesthesia used: yes Local Anesthetic: lidocaine 1% with epinephrine Anesthetic total: 1 mL Sedation: Patient sedated: no Preparation: Patient was prepped and draped in the usual sterile fashion. Needle gauge: 27. Ultrasound guidance: no Approach: lateral Triamcinolone amount (mg): 40. Patient tolerance: Patient tolerated the procedure well with no immediate complications Diagnoses/Impression: 1. Chronic pain of both knees Recommendations and Plan: 1. Chronic pain of both knees PCP: ETIENNE SANCHEZ MD 05/20/2018 TY DISTRICT CUSTOMS DIRECTOR documented in this encounter Plan of Treatment Upcoming Encounters Date Type Department Care Team (Late st Contact Info) Description 06/09/2024 4:20 PM DEPUTY DISTRICT CUSTOMS DIRECTOR Office Visit [facility] Family & Internal Medicine [address] [address] Etienne Sanchez MD [address] [place] [address] Scheduled Orders Name Type Priority Associated Diagnoses Orde r Schedule Joint Aspiration/Injection Procedures Routine Ordered: documented as of this encounter Procedures Procedure Name Priority Date/Time Associated Diagnosis Comments JOINT ASPIRATION/INJECTIO N Routine 05/20/2018 4:00 PM DEPUTY DISTRICT CUSTOMS DIRECTOR Chronic pain of both knees JOINT ASPIRATION/INJECTIO N Routine 05/20/2018 4:00 PM DEPUTY DISTRICT CUSTOMS DIRECTOR Chronic pain of both knees documented in this encounter Results * Joint Aspiration/Injection (05/20/2018 4:00 PM DEPUTY DISTRICT CUSTOMS DIRECTOR) Narrative Etienne Sanchez MD - 05/20/2018 4:00 PM DEPUTY DISTRICT CUSTOMS DIRECTOR Etienne Sanchez MD ? 05/20/2018 ??4:49 PM Joint Aspiration/Injection Date/Time: 05/20/2018 4:48 PM Performed by: Etienne Sanchez MD Authorized by: Etienne Sanchez MD Indications: pain Body area: knee Joint: right knee Local anesthesia used: yes Anesthesia: Local anesthesia used: yes Local Anesthetic: lidocaine 1% with epinephrine Anesthetic total: 1 mL Sedation: Patient sedated: no Preparation: Patient was prepped and draped in the usual sterile fashion. Needle gauge: 27. Ultrasound guidance: no Approach: lateral Triamcinolone amount (mg): 40. Patient tolerance: Patient tolerated the procedure well with no immediate complications us Etienne Sanchez MD PROCEDURE/MINOR SURGICAL OR DERABLES Final Result * Joint Aspiration/Injection (05/20/2018 4:00 PM DEPUTY DISTRICT CUSTOMS DIRECTOR) Etienne Baumann MD - 05/20/2018 4:00 PM DEPUTY DISTRICT CUSTOMS DIRECTOR Etienne Sanchez MD ? 05/20/2018 ??4:49 PM Joint Aspiration/Injection Date/Time: 05/20/2018 4:46 PM Performed by: Etienne Sanchez MD Authorized by: Etienne Sanchez MD Indications: pain Body area: knee Local anesthesia used: yes Anesthesia: local [...] Shake WellIndications:Chronic pain of both knees Given 05/20/2018 12:58 PM DEPUTY DISTRICT CUSTOMS DIRECTOR 40 mg Other Given 05/20/2018 12:57 PM DEPUTY DISTRICT CUSTOMS DIRECTOR 40 mg O ther documented in this encounter Care Teams Vegetable Farm Manager Relationship Specialty [place] [address] [place] [address] PCP - General FAMILY PRACTICE 02/27/18 documented as of this encounter
--- OUTSIDE RECORDS SUMMARY | 2024-04-27 18:26 | XMS_ITS | Encounter Summary ---
Author Organization [facility] Address [address] [place] [address]. [place] [address] [place] [address] Care Team Providers Care Replanting Machine Operator Name Role Phone Etienne Sanchez MD Primary Care Provider [phone] Reason for Visit * Reason Comments Eye Problem Persistant eye probl em, not getting better. Previously seen and dx with a stye. Encounter Details Date Type Department Care Team (Late st Contact Info) Description 02/27/2018 8:20 AM SKID MAN Office Visit [facility] Family & Internal Medicine [address] [address] Etienne Sanchez [place] [id number] [place] [address] Eye Problem (Persistant eye problem, not getting better. Previously seen and dx with a stye. ) Social History Tobacco Use Types Packs/Day [...] Sexual Orientation Straight 03/28/2018 4: 44 PM SKID MAN documented as of this encounter Last Filed Vital Signs Vital Sign Reading Time Taken Comments Blood Pressure 170/80 02/27/2018 8:34 AM SKID MAN Pulse 74 02/27/2018 8:34 AM SKID MAN Temperature - - Respiratory Rate 18 02/27/2018 8:34 AM SKID MAN Oxygen Saturation 99% 02/27/2018 8:34 AM SKID MAN Inhaled Oxygen Concentration - - Weight 66.5 kg (146 lb 9.6 oz) 02/27/2018 8:34 A M SKID MAN Height 175.3 cm (5' 9 ) 02/27/2018 8:34 AM SKID MAN Body Mass Index 21.65 02/27/2018 8:34 AM SKID MAN documented in this encounter Patient Instructions * Patient Instructions* Etienne Sanchez MD - 02/27/2018 8:20 AM SKID MAN Pt with no change and needs to continue warm compresses and keflex and if no change in one month will send to opth MAN documented in this encounter Progress Notes * Etienne Sanchez MD - 02/27/2018 8:20 AM CST Images from the original note were not included. Office Progress Note Reason for Visit: Eye Problem (Persistant eye problem, not getting better. Previously seen and dx with a indira. ) History of Present Illness: Still having left eye lesion without change ROS: Review of Systems Constitutional: Negative for fever and weight loss. HENT: Negative for ear discharge and ear pain. Eyes: Positive for discharge and redness. Negative for blurred vision, double vision, photophobia and pain. Respiratory: Negative for cough. Gastrointestinal: Negative for nausea and vomiting. Genitourinary: Negative for dysuria. Skin: Left eye lesions Neurological: Negative for headaches. Psychiatric/Behavioral: Negative for depression. Medications: Current [...] mouth nightly at bedtime., Disp: , Rfl: ??? atorvastatin 20 MG tablet, Take 1 tablet by mouth daily., Disp: , Rfl: ??? busPIRone 10 MG tablet, Take 1 tablet by mouth 3 (three) times daily as needed., Disp: , Rfl: Allergies: Allergies Allergen Reactions ??? Codeine Unknown ??? Propoxyphene Unknown Medical History: Past Medical History: Diagnosis Date ??? Arthritis ??? Cancer (HCC) ??? Diabetes mellitus (HCC) Surgical History: Past Surgical History: Procedure Laterality Date ??? ABDOMINAL SURGERY Social History: Social History Socioeconomic History ??? Marital status: Spouse name: Not on file ??? Number of children: Not on file ??? Years of education: Not on file ??? Highest education level: Not on file Social Needs ??? Financial resource strain: Not on file ??? Food insecurity - worry: Not on file ??? Food insecurity - inability: Not on file ??? Transportation needs - medical: Not on file ??? Transportation needs - non-medical: Not on file Occupational History ??? Not on file Tobacco Use ??? Smoking status: Never Smoker ??? Smokeless tobacco: Current User Substance and Sexual Activity ??? Alcohol use: No Frequency: Never ??? Drug use: No ??? Sexual activity: Not on file Other Topics Concern ??? Not on file Social History Narrative ??? Not on file Family History: Family History Problem Relation Age of Onset ??? Arthritis Mother ??? Hypertension Mother ??? Hyperlipidemia Mother ??? Stroke Mother ??? CHF Mother PE: Physical Exam Filed Vitals: 02/27/18 0834 BP: 170/80 Pulse: 74 Resp: 18 SpO2: 99% Weight: 66.5 kg (146 lb 9.6 oz) Height: 5' 9 (1.753 m) Diagnoses/Impression: No diagnosis found. Recommendations and Plan: There are no diagnoses linked to this encounter. No orders of the defined types were placed in this encounter. Cannot display discharge medications since this is not an admission. PCP: ETIENNE SANCHEZ MD 02/27/2018 MAN documented in this encounter Plan of Treatment Upcoming Encounters Date Type Department Care Team (Late st Contact Info) Description 06/09/2024 4:20 PM SKID MAN Office Visit [facility] Family & Internal Medicine [facility] [address] [place] [address] [place] [address] [place] [address] documented as of this encounter Visit Diagnoses Diagnosis Hordeolum externum of left lower eyelid- Primary Hordeolum externum documented in this encounter Care Teams Replanting Machine Operator Relationship Specialty [place] [address] [place] [address] PCP - General FAMILY PRACTICE 02/27/18 documented as of this encounter
--- OUTSIDE RECORDS SUMMARY | 2024-04-27 18:26 | XMS_ITS | Encounter Summary ---
Author Organization [facility] Address [address] [place] [address]. [place] [address] [place] [address] Care Team Providers Care Floor Molder Name Role Phone León Sanchez MD Primary Care Provider [phone] Encounter Details Date Type Department Care Team (Latest Contact Info) Description 02/19/2018 Scan [facility] Kareen Herrera MD Social History Tobacco Use Types Packs/Day [...] Sexual Orientation Straight 03/28/2018 4: 44 PM MONITOR WORKER documented as of this encounter Plan of Treatment Upcoming Encounters Date Type Department Care Team (Late st Contact Info) Description 06/09/2024 4:20 PM MONITOR WORKER Office Visit [facility] Family & Internal Medicine [facility] [address] [place] [address] [place] [address] [place], [place] [id number] documented as of this encounter Visit Diagnoses Not on filedocumented in this encounter Care Teams Floor Molder Relationship Specialty Start [place] [address] [place] [address] PCP - General FAMILY PRACTICE 02/27/18 documented as of this encounter
--- OUTSIDE RECORDS SUMMARY | 2024-04-27 18:26 | XMS_ITS | Encounter Summary ---
Author Organization [facility] Address [facility] [place] [address] [place] [address] Care Team Providers Care Chief Dispatcher Name Role Phone Unavailable Primary Care Provider Unavailabl e Encounter Details Date Type Department Care Team (Latest Contact Info) Description 01/03/2018 Abstract [facility] [place] [address] [place] [address] Social History Tobacco Use Types Packs/Day Years Used Date Smoking Tobacco: Never Assessed Sex and Gender Information Value Date Recorded Sex Assigned at Not on file Legal Sex Male 6:22 PM CDT Gender Identity Not on file Sexual Orientation Straight 03/28/2018 4: 44 PM BASKET BOTTOM MACHINE OPERATOR documented as of this encounter Progress Notes * Reji Carrillo NP - 01/03/2018 8:31 PM CDT Message other than glucose cmp is normal follow up in office Verified Results Compr Metabolic Prof ( CMP ) 03Jan2018 [...] G/DL 3.4-5.0 A:G Ratio 1.4 RATIO 1.0-2.0 documented in this encounter Plan of Treatment Upcoming Encounters Date Type Department Care Team (Late st Contact Info) Description 06/09/2024 4:20 PM BASKET BOTTOM MACHINE OPERATOR Office Visit [facility] Family & Internal Medicine - [place] [address] [place] [address] León Sanchez [place] [id number] [place] [address] documented as of this encounter Visit Diagnoses Not on filedocumented in this encounter
--- OUTSIDE RECORDS SUMMARY | 2024-04-27 18:26 | XMS_ITS | Encounter Summary ---
Author Organization [facility] Address [facility] [place] [address] [place] [address] Care Team Providers Care Capital Campaign Fundraiser Name Role Phone Unavailable Primary Care Provider Unavailabl e Encounter Details Date Type Department Care Team (Latest Contact Info) Description 06/13/2017 Abstract [facility] Medical Group Social History Tobacco Use Types Packs/Day Years Used Date Smoking Tobacco: Never Assessed Sex and Gender Information Value Date Recorded Sex Assigned at Not on file Legal Sex Male 6:22 PM CDT Gender Identity Not on file Sexual Orientation Straight 03/28/2018 4: 44 PM MANAGER POOL documented as of this encounter Plan of Treatment Upcoming Encounters Date Type Department Care Team (Late st Contact Info) Description 06/09/2024 4:20 PM MANAGER POOL Office Visit [facility] Medical Group Family & Internal Medicine [facility] [address] [place] [address] [place] [address] [place] [address] documented as of this encounter Visit Diagnoses Not on filedocumented in this encounter
--- OUTSIDE RECORDS SUMMARY | 2024-04-27 18:26 | XMS_ITS | Encounter Summary ---
Author Organization [facility] Address [facility] [place] [address] [place] [address] Care Team Providers Care Office Spec Name Role Phone Unavailable Primary Care Provider Unavailabl e Encounter Details Date Type Department Care Team (Late st Contact Info) Description 08/02/2017 Abstract [facility] Medical Group Family & Internal Medicine [facility] [address] [place] [address] [place] [address] [place], [place] [id number] Social History Tobacco Use Types Packs/Day Years Used Date Smoking Tobacco: Never Assessed Sex and Gender Information Value Date Recorded Sex Assigned at Not on file Legal Sex Male 6:22 PM CDT Gender Identity Not on file Sexual Orientation Straight 03/28/2018 4: 44 PM 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 documented as of this encounter Last Filed Vital Signs Vital Sign Reading Time Taken Comments Blood Pressure 142/82 08/02/2017 4:13 PM CDT Pulse 91 08/02/2017 4:13 PM CDT Temperature - - Respiratory Rate - - Oxygen Saturation - - Inhaled Oxygen Concentration - - Weight 64.9 kg (143 lb 2.1 oz) 08/02/2017 4:13 P M CDT Height 175.3 cm (5' 9 ) 08/02/2017 4:13 PM CDT Body Mass Index 21.14 08/02/2017 4:13 PM CDT documented in this encounter Progress Notes * León Sanchez MD - 08/02/2017 4:20 PM CDT Reason For Visit Reason For Visit: Acute Visit Chief Complaint Pt presents for c/o sinus infection sx, c/o nasal drainage, no congestion, has c/o productive coughat times, sx since Sunday. History of Present Illness Sinusitis (Brief): The patient is being seen for an initial evaluation of sinusitis. The sinusitis involves the frontal sinuses. The sinusitis is classified as acute. The patient is currently experiencing symptoms. no facial pain facial pressure no headache no dental pain nasal congestion no clear r hinorrhea purulent rhinorrhea postnasal drainage Associated symptoms: cough, but no fever, no chills, no nausea, no ear fullness, no ear pain, no ear pressure and no sore throat. Review of Systems See HPI for pertinent positives. Constitutional: no fever. ENT: nasal discharge, but no sore throat and no hearing loss. Cardiovascular: no chest pain. Respiratory: cough, but no shortness of breath, no shortness of breath during exertion and no wheezing. Gastrointestinal: no diarrhea. Integumentary: no skin rash. Neurological: no dizziness. Psychiatric: Normal.. Active Problems 1. Acute bronchitis (466.0) (J20.9) 2. Bilateral knee pain (719.46) (M25.561,M25.562) 3. Cancer of tongue (141.9) (C02.9) 4. Constipation, acute (564.00) (K59.00) 5. Dyslipidemia (272.4) (E78.5) 6. Hypertension (401.9) (I10) 7. Hypogonadism, testicular (257.2) (E29.1) 8. Palpable mass of neck (784.2) (R22.1) 9. Seasonal allergies (477.9) (J30.2) 10. Smokeless tobacco use (305.1) (Z72.0) 11. Type 2 diabetes mellitus (250.00) (E11.9) Past [...] TAKE 1 TABLET DAILY; Therapy: 30Nov2014 to (Evaluate:[id number]) Recorded Dispense: 30 Days ; #:30 Tablet; [...] mellitus; MICHEL = N; Verified Transmission to [facility]; Msg to Pharmacy: DX E 11.9; Last Updated By: QuoVadis; 03/14/2017 9:17:25 AM 3. Blood Glucose Monitor System w/Device Kit; PLEASE DISPENSE GLUCOMETER DEVICE THAT PTS INSURANCE WILL COVER. PT TO TEST BLOOD SUGAR BEFORE MEALS AND AT BEDTIME; Therapy: 14Mar2017 to (Last Rx:14Mar2017) Requested for: 14Mar2017 Ordered Rx By: León Sanchez; Dispense: 0 Days ; #:1 Kit; Refill: 0; For: Type 2 diabetes mellitus; MICHEL = N; [facility]; Msg to Pharmacy: Iizuu E 11.9; Last Updated By: QuoVadis; 03/14/2017 10:40:55 AM 4. Blood Glucose Test In Vitro Strip; PLEASE DISPENSE TEST STRIPS THAT PTS INSURANCE WILL COVER, PT TO TEST BEFORE MEALS AND AT BEDTIME; Therapy: 14Mar2017 to (Last Rx:14Mar2017) Requested for: 14Mar2017 Ordered Rx By: León Sanchez; Dispense: 0 Days ; #:1 X 100 Strip Box; Refill: 0; For: Type 2 diabetes mellitus; MICHEL = N; [facility]; Msg to Pharmacy: DX E 11.9; Last Updated By: QuoVadis; 03/14/2017 10:40:57 AM 5. HumaLOG 100 UNIT/ML [...] mellitus; MICHEL = N; Verified Transmission to [facility] 435; Last Updated By: QuoVadis; 03/14/2017 9:17:24 AM 6. Invokana 300 MG Oral Tablet; TAKE 1 TABLET BY MOUTH DAILY; Therapy: 08May2017 to (Evaluate:[id number]) Recorded Dispense: 0 Days ; #: Sufficient Tablet; Refill: 0; MICHEL = N; Record; Last Updated By: Yamilex Smith; 05/08/2017 7:02:10 AM 7. Lactulose 10 GM/15ML Oral Solution; TAKE 15 ML DAILY; Therapy: 08May2017 to (Evaluate:[id number]) Requested for: 08May2017; Last Rx:08May2017 Ordered Rx By: León Sanchez; Dispense: 16 Days ; #:1 X 236 ML Bottle; Refill: 0; For: Constipation, acute; MICHEL = N; Verified Transmission to [facility] 2425; Last Updated By: Francesca Pedraza; 05/08/2017 9:29:39 AM 8. Lancets 30G; PLEASE DISPENSE LANCETS THAT PTS INSURANCE WILL COVER, PT TO TEST BEFORE MEALS AND AT BEDTIME; Therapy: 14Mar2017 to (Last Rx:14Mar2017) Requested for: 14Mar2017 Ordered Rx By: León Sanchez; Dispense: 0 Days ; #:1 X 100 Unit Box; Refill: 2; For: Type 2 diabetes mellitus; MICHEL = N; Verified Transmission to [facility] 435; Last Updated By: QuoVadis;03/14/2017 10:40:54 AM 9. Lisinopril 10 MG Oral Tablet; TAKE ONE TABLET BY MOUTH ONCE DAILY FOR BLOOD PRESSURE; Therapy: [id number] to (Evaluate:[id number]) Requested for: 02Dec2016; Last Rx:[id number] Ordered Rx By: Prudence Paredes; Dispense: 90 Days ; #:90 Tablet; Refill: 1; For: Hypertension; MICHEL = N; Verified Transmission to [facility] 435; Msg to Pharmacy: PT MUST HAVE APPT FOR FURTHER REFILLS; Last Updated By: [employer] Tyros; 12/02/2016 9:26:43 AM 10. MetFORMIN HCl - 500 MG Oral Tablet; TAKE TWO TABLETS BY MOUTH TWICE DAILY; Therapy: 29Jan2012 to (Evaluate:[id number]) Requested for: 15Jun2017; Last Rx:15Jun2017 Ordered Rx By: León Sanchez; Dispense: 90 Days ; #:360 Tablet; Refill: 1; For: Type 2 diabetes mellitus; MICHEL = N; Verified Transmission to [place] [address]; Last Updated By: Eddie Tyros; 06/15/2017 11:50:49 AM 11. Montelukast Sodium 10 MG Oral Tablet; TAKE 1 TABLET AT BEDTIME; Therapy: 22Jun2017 to (Evaluate:82Ciz2365) Requested for: 22Jun2017; Last Rx:22Jun2017 Ordered Rx By: León Sanchez; Dispense: 30 Days ; #:30 Tablet; Refill: 2; For: Acute bronchitis; MICHEL = N; Verified Transmission to [place] [address]; Last Updated By: [employer] Tyros; 06/22/2017 3:17:32 PM 12. Ondansetron 4 MG Oral Tablet Disintegrating; DISSOLVE ONE TABLET IN MOUTH EVERY 6 HOURS NEEDED; Therapy: 22Jun2017 to (Last Rx:22Jun2017) Requested for: 22Jun2017 Ordered Rx By: León Sanchez; Dispense: 0 Days ; #:12 Tablet; Refill: 0; For: Acute bronchitis; MICHEL = N;Verified Transmission to [place] [address]; Last Updated By: QuoVadis; 06/22/2017 3:17:32 PM Allergies 1. Codeine Sulfate TABS Updated By: Lesly Lovett; 02/13/2017 8:09:49 AM 2. Darvocet-N 100 TABS Recorded By: Deepthi Hernandez; 11/29/2011 4:45:28 PM Vitals Recorded: 02Aug2017 04:13PM Temperature 98.7 F Heart Rate 91 Respiration 18 Systolic 142 Diastolic 82 O2 Saturation 99 Height 5 ft 9 in Weight 143 lb 2 oz BMI Calculated 21.14 BSA Calculated 1.79 Physical Exam Constitutional General appearance: No acute distress, well appearing and well nourished. non toxic.. Eyes Conjunctiva and lids: No swelling, erythema, or discharge. Pupils and irises: Equal, round and reactive to light. Ears, Nose, Mouth, and Throat External inspection of ears and nose: Normal. Otoscopic examination: Tympanic membrane translucent with normal light reflex. Canals patent without erythema. Oropharynx: Normal with no erythema, edema, exudate or lesions. upper and lower dentures.. Pulmonary Respiratory effort: No increased work of breathing or signs of respiratory distress. Auscultation of lungs: Clear to auscultation. Cardiovascular Auscultation of heart: Normal rate and rhythm, normal S1 and S2, without murmurs. Lymphatic Palpation of lymph nodes in neck: No lymphadenopathy. Skin Skin and subcutaneous tissue: Normal without rashes or lesions. left sided surgical healing scar.. Neurologic Cranial nerves: Cranial nerves 2-12 intact. Sensation: No sensory loss. Psychiatric Orientation to person, place and time: Normal. Mood and affect: Normal. Assessment 1. Acute sinusitis (461.9) (J01.90) Plan Acute sinusitis 1. Amoxicillin 500 MG Oral Capsule; TAKE 1 CAPSULE 3 TIMES DAILY Rx By: León Sanchez; Dispense: 10 Days ; #:30 Capsule; Refill: 0; For: Acute sinusitis; MICHEL = N; Sent To: [place] [address] 1) Acute sinusitis: rest, push fluids, tylenol as needed, start mucinex and afrin and if no change or fever to start amoxil Signatures Electronically signed by : León Sanchez M.D.; Aug 02 2017 4:37PM 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 (Author) documented in this encounter Plan of Treatment Upcoming Encounters Date Type Department Care Team (Late st Contact Info) Description 06/09/2024 4:20 PM 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 Office Visit [facility] Medical Group Family & Internal Medicine [address] [address] [place] [address] [place], [place] [id number] documented as of this encounter Visit Diagnoses Not on filedocumented in this encounter
--- OUTSIDE RECORDS SUMMARY | 2024-04-27 18:26 | XMS_ITS | Encounter Summary ---
Author Organization [facility] Address [facility] [facility] 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 documented as of this encounter Plan of Treatment Upcoming Encounters Date Type Department Care Team (Late st Contact Info) Description 06/09/2024 4:20 PM VIRTUAL ASSISTANT FOR [employer]VERTISERS Office Visit [facility] Family & Internal Medicine [address] [address] [place] [address] [place] [address] documented as of this encounter Procedures Procedure Name Priority Date/Time Associated Diagnosis Comments US ABD LIMITED Routine 09/21/2017 11:53 AM CDT documented in this encounter Results * US ABD LIMITED (09/21/2017 11:53 AM CDT) Anatomical Region Laterality Modality Abdomen Ultrasound 09/21/2017 11:5 3 AM CDT 09/21/2017 11:53 AM CDT Narrative 09/21/2017 2:14 PM CDT BRADEN TREJO ? ADMIT/SERVICE DATE: 09/21/17 ?? ACCT: [id number] ?DISCHARGE DATE: ?? : 1960 ??SEX: M ?ORD SITE: [facility] ?? PT TYPE: REG CLI ? ORDERING MD: ETIENNE SANCHEZ MD ? STUDY DATE ? REPORT # ?ORDER # ? EXT ORDER ID ?? 09/21/17 ? [id number] ? [id number] ?[id number] ? PROC CODE: ? [id number] ? PROCEDURE DESCRIPTION: ?? US ABDOMEN LIMITED RUQ ? ADDENDUM #1 ?? REPORT VERIFIED AND FAXED TO SHANT AT DR. DODSON'S OFFICE AT 1306. ? [id number] ? ELECTRONICALLY SIGNED BY AMAYA PEREIRA MD ON 09/21/2017 2:12 PM ORIGINAL REPORT ? IMAGING STUDIES: ??US ABDOMEN LIMITED RUQ ? DATE: ??09/21/2017 9:10 AM ? COMPARISON STUDIES: NO PREVIOUS EXAMS AVAILABLE ? CLINICAL HISTORY: OTHER - PAIN NAUSEA ??. ?. ? FINDINGS: ? REAL-TIME ULTRASOUND EXAMINATION PERFORMED BY THE IN STORE MARKETING ASSOCIATE DEMONSTRATES: ? PANCREAS: NO OBVIOUS FOCAL LESIONS WITHIN THE PARTIALLY VISUALIZED PANCREATIC REGION. ? LIVER: THE LIVER DEMONSTRATES DIFFUSE INCREASED ECHOGENICITY SUGGESTIVE OF FATTY INFILTRATION. THERE IS A 2.8 CM ECHOGENIC NODULE WITHIN THE RIGHT LOBE. THE PORTAL VEIN AND HEPATIC VEINS ARE PATENT. ? GALLBLADDER: 2.9 MM GALLSTONE VERSUS SLUDGE BALL (NO SHADOWING), MOBILE WITHIN THE GALLBLADDER. THE GALLBLADDER IS NOT DISTENDED. THE GALLBLADDER WALL IS NOT THICKENED. NEGATIVE ULTRASONOGRAPHIC ARROYO'S SIGN. NO PERICHOLECYSTIC FLUID. THE COMMON BILE DUCT MEASURES 3.6 MM. ? RIGHT KIDNEY: THE RIGHT KIDNEY MEASURES 11.5 CM IN MAXIMUM DIMENSION WITH NORMAL CORTICOMEDULLARY DIFFERENTIATION AND NO HYDRONEPHROSIS. ?? .EXTRA. ? IMPRESSION: ? 1. ??LARGE SLUDGE BALL VERSUS NONSHADOWING GALLSTONE, NO INDIRECT SIGNS OF ACUTE CHOLECYSTITIS. ? 2. ??HEPATIC STEATOSIS. ? 3. 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 ? THE BOX ATTACHER OF THIS REPORT IN ITS ENTIRETY IS A PRODUCT OF VOICE RECOGNITION SOFTWARE. ? ELECTRONICALLY SIGNED BY AMAYA PEREIRA MD ON 09/21/2017 11:22 AM ? Procedure Note Kareen Herrera MD - 02/06/2018 BRADEN TREJO ADMIT/SERVICE DATE:09/21/17 ACCT: [id number] DISCHARGE DATE: : 1960 SEX: M ORD SITE: [facility] PT TYPE: REG CLI ORDERING MD:ETIENNE SANCHEZ MD STUDY DATE REPORT # ORDER # EXT ORDER ID 09/21/17 [id number] PROC CODE: [id number] PROCEDURE DESCRIPTION: US ABDOMEN LIMITED RUQ ADDENDUM #1 REPORT VERIFIED AND FAXED TO SHANT AT DR. DODSON'S OFFICE AT 3712. [id number] ELECTRONICALLY SIGNED BY AMAYA PEREIRA MD ON 09/21/2017 2:12 PMORIGINAL REPORT IMAGING STUDIES: US ABDOMEN LIMITED RUQ DATE: 09/21/2017 9:10 AM COMPARISON STUDIES: NO PREVIOUS EXAMS AVAILABLE CLINICAL HISTORY: OTHER - PAIN NAUSEA . . FINDINGS: REAL-TIME ULTRASOUND EXAMINATION PERFORMED BY THE ULTRASONOGRAPHERDEMONSTRATES: PANCREAS: NO OBVIOUS FOCAL LESIONS WITHIN THE PARTIALLY VISUALIZEDPANCREATIC REGION. LIVER: THE LIVER DEMONSTRATES DIFFUSE INCREASED ECHOGENICITY SUGGESTIVEOF FATTY INFILTRATION. THERE IS A 2.8 CM ECHOGENIC NODULE WITHIN THE RIGHT LOBE. THE PORTAL VEINAND HEPATIC VEINS ARE PATENT. GALLBLADDER: 2.9 MM GALLSTONE VERSUS SLUDGE BALL (NO SHADOWING), MOBILEWITHIN THE GALLBLADDER. THE GALLBLADDER IS NOT DISTENDED. THE GALLBLADDER WALL IS NOT THICKENED.NEGATIVE ULTRASONOGRAPHIC ARROYO'S SIGN. NO PERICHOLECYSTIC FLUID. THE COMMON BILE DUCT MEASURES 3.6MM. RIGHT KIDNEY: THE RIGHT KIDNEY MEASURES 11.5 CM IN MAXIMUM DIMENSION WITHNORMAL CORTICOMEDULLARY DIFFERENTIATION AND NO HYDRONEPHROSIS. .EXTRA. IMPRESSION: 1. LARGE SLUDGE BALL VERSUS NONSHADOWING GALLSTONE, NO INDIRECT SIGNS OFACUTE CHOLECYSTITIS. 2. HEPATIC STEATOSIS. 3. 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 THE BOX ATTACHER OF THIS REPORT IN ITS ENTIRETY IS A PRODUCT OF VOICERECOGNITION SOFTWARE. ELECTRONICALLY SIGNED BY AMAYA PEREIRA MD ON 09/21/2017 11:22 AM Etienne Sanchez MD ULTRASOUND Final Resul t documented in this encounter Visit Diagnoses Not on filedocumented in this encounter
--- OUTSIDE RECORDS SUMMARY | 2024-04-27 18:26 | XMS_ITS | Encounter Summary ---
Author Organization [facility] Address [address] [place] [address]. [place], [place] [address] [place] [address] Care Team Providers Care Sas Bi Developer Name Role Phone León Sanchez MD Primary Care Provider [phone] Reason for Visit * Reason Comments Sinus Problem Sinus congestion, si nus pressure, for the last two days. Has been using OTC medications. Encounter Details Date Type Department Care Team (Late st Contact Info) Description 06/06/2018 5:40 PM CHECK WRITER Office Visit [facility] Family & Internal Medicine [address] [address] Caro Walker NP Sinus Problem (Sinus congestion, sinus pressure, for the last two days. Has been using OTC medications. 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 Not on file Not on file documented as of this encounter Last Filed Vital Signs Vital Sign Reading Time Taken Comments Blood Pressure 130/78 06/06/2018 5:43 PM CHECK WRITER Pulse 97 06/06/2018 5:43 PM CHECK WRITER Temperature 37.5 ??C (99.5 ??F) 06/06/2018 5:43 PM CS T Respiratory Rate 18 06/06/2018 5:43 PM CHECK WRITER Oxygen Saturation 96% 06/06/2018 5:43 PM CHECK WRITER Inhaled Oxygen Concentration - - Weight 66.3 kg (146 lb 3.2 oz) 06/06/2018 5:43 P M CHECK WRITER Height 175.3 cm (5' 9 ) 06/06/2018 5:43 PM CHECK WRITER Body Mass Index 21.59 06/06/2018 5:43 PM CHECK WRITER documented in this encounter Patient Instructions * Patient Instructions* Caro Walker NP - 06/06/2018 5:40 PM CHECK WRITER Drink plenty of water 6 to 8 cups per day Take antibiotic daily as directed Use antihistamine over the counter as directed Use analgesic as directed Cough medication as directed Rest. Avoid decongestants. K WRITER documented in this encounter Progress Notes * Caro Walker NP - 06/06/2018 5:40 PM CST Reason for Visit: Sinus Problem (Sinus congestion, sinus pressure, for the last two days. Has been using OTC medications. ) History of Present Illness: Pt is having symptoms since Sunday. Pt has had mild chills and in office today has low grade fever. Pt has hx of sinus infection at least 3 times. Phlegm thick yellow nasal PND. Sinus Problem This is a new problem. The current episode started in the past 3 days. The problem occurs intermittently. The problem has been gradually worsening. Associated symptoms include chills, congestion, coughing, fatigue, a fever and a sore throat. The symptoms are aggravated by coughing and swallowing. He has tried acetaminophen, NSAIDs and drinking for the symptoms. The treatment provided mild relief. ROS: Review of Systems Constitutional: Positive for chills and fever. HENT: Positive for congestion, sinus pain and sore throat. Eyes: Negative. Respiratory: Positive for cough, sputum production and shortness of breath. Cardiovascular: Negative. Gastrointestinal: Negative. Genitourinary: Negative. Musculoskeletal: Negative. Skin: Negative. Neurological: Negative. Endo/Heme/Allergies: Negative. Psychiatric/Behavioral: Negative. Medications: Current Outpatient Medications: ??? amoxicillin-clavulanate (AUGMENTIN) 875-125 MG tablet, Take 1 tablet (875 mg total) by mouth 2 (two) times daily for 7 days., Disp: 14 tablet, Rfl: 0 ??? oseltamivir 75 MG capsule, Take 1 capsule (75 mg total) by mouth 2 (two) times daily for 5 days., Disp: 10 capsule, Rfl: 0 ??? aspirin 81 MG tablet, Take 1 [...] AT BEDTIME, Disp: 90 tablet, Rfl: 0 Current Facility-Administered Medications: ??? triamcinolone acetonide (KENALOG-40) injection 40 mg, 40 mg, Intramuscular, Once, León Sanchez MD Allergies Allergen Reactions ??? Codeine Unknown ??? Propoxyphene Unknown Past Medical History: Diagnosis Date ??? Arthritis ??? Cancer (CMS/HCC) ??? Diabetes mellitus (CMS/HCC) Past Surgical History: Procedure Laterality Date ??? ABDOMINAL SURGERY Social History Socioeconomic History ??? Marital status: Spouse name: Lisette ??? Number of children: 4 ??? Years of education: Not on file ??? Highest education level: High school graduate Occupational History ??? 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 Financial resource strain: Not [...] file Gets together: Not on file Attends denominational service: Not on file Active member of [...] Status ??? Mother ??? Father Physical Exam Constitutional: He is oriented to person, place, and time. He appears well- developed and well-nourished. HENT: Right Ear: Tympanic membrane is injected, erythematous and bulging. A middle ear effusion is present. Left Ear: Tympanic membrane is injected, erythematous and bulging. A middle ear effusion is present. Nose: Mucosal edema and sinus tenderness present. Mouth/Throat: Posterior oropharyngeal erythema present. Eyes: Pupils are equal, round, and reactive to light. Right eye exhibits no discharge. Left eye exhibits no discharge. Cardiovascular: Normal rate and regular rhythm. Pulmonary/Chest: Effort normal and breath sounds normal. Abdominal: Soft. Lymphadenopathy: He has cervical adenopathy. Right cervical: Posterior cervical adenopathy present. Left cervical: Posterior cervical adenopathy present. Neurological: He is alert and oriented to person, place, and time. He has normal reflexes. Psychiatric: He has a normal mood and affect. His behavior is normal. Filed Vitals: 06/06/18 1743 BP: 130/78 Pulse: 97 Resp: 18 Temp: 99.5 ??F (37.5 ??C) TempSrc: Oral SpO2: 96% Weight: 66.3 kg (146 lb 3.2 oz) Height: 5' 9 (1.753 m) Assessment Encounter Diagnose(s) ICD-10-CM ICD-9-CM SNOMED CT(R) 1. Acute sinusitis, recurrence not specified, unspecified location J01.90 461.9 ACUTE SINUSITIS amoxicillin-clavulanate (AUGMENTIN) 875-125 MG tablet 2. Influenza A J10.1 487.1 INFLUENZA DUE TO INFLUENZA A VIRUS INFLUENZA A & B oseltamivir 75 MG capsule Recommendations and Plan: Outpatient Encounter Medications as of 06/06/2018 Medication Sig Dispense Refill ??? amoxicillin-clavulanate (AUGMENTIN) 875-125 MG tablet Take 1 tablet (875 mg total) by mouth 2 (two) times daily for 7 days. 14 tablet 0 ??? oseltamivir 75 MG capsule Take 1 capsule (75 mg total) by mouth 2 (two) times daily for 5 days.10 capsule 0 ??? aspirin 81 MG tablet Take 1 tablet by mouth daily. ??? [DISCONTINUED] atorvastatin 20 MG tablet Take 1 tablet by mouth daily. ??? clobetasol 0.05 % Cream Apply 1 Dose topically 2 (two) times daily. ??? lisinopril 10 MG tablet Take 1 tablet by mouth daily. ??? METFORMIN 500 MG tablet TAKE 2 TABLETS BY MOUTH TWICE DAILY 360 tablet 1 ??? MONTELUKAST 10 MG tablet TAKE 1 TABLET BY MOUTH ONCE DAILY AT BEDTIME 90 tablet 0 Facility-Administered Encounter Medications as of 06/06/2018 Medication Dose Route Frequency Provider Last Rate Last Dose ??? triamcinolone acetonide (KENALOG-40) injection 40 mg 40 mg Intramuscular Once León Sanchez MD Sonny was seen today for sinus problem. Diagnoses and all orders for this visit: Acute sinusitis, recurrence not specified, unspecified location - amoxicillin-clavulanate (AUGMENTIN) 875-125 MG tablet; Take 1 tablet (875 mg total) by mouth 2 (two) times daily for 7 days. Influenza A - INFLUENZA A & B - oseltamivir 75 MG capsule; Take 1 capsule (75 mg total) by mouth 2 (two) times daily for 5 days. Pt was positive for A. Medicated for the influenza A. CARO WALKER NP 06/06/2018 6:19 PM K WRITER documented in this encounter Plan of Treatment Upcoming Encounters Date Type Department Care Team (Late st Contact Info) Description 06/09/2024 4:20 PM CHECK WRITER Office Visit [facility] Family & Internal Medicine - [place] [address] [place] [address] [place] [address] [place] [address] documented as of this encounter Procedures Procedure Name Priority Date/Time Associated Diagnosis Comments INFLUENZA A & B Routine 06/06/2018 6:00 PM CHECK WRITER Influenza A documented in this encounter Results * (ABNORMAL) INFLUENZA A & B (06/06/2018 6:00 PM CHECK WRITER) INFULENZA A AB POSITIVE NEGATIVE MG[address] ([address]), [place] INFLUENZA B AB NEGATIVE NEGATIVE MG[address] ([address]), [place] Internal Control: VALID VALID MG[address] ([address]), [place] NASAL STRUCTURE / Unknown 06/06/2018 6:00 PM CHECK WRITER us Caro Walker NP MICROBIOLOGY - GENERAL ORDERA BLES Final Result [facility] ([address]), [place] [address] [place] [address], documented in this encounter Visit Diagnoses Diagnosis Acute sinusitis, recurrence not specified, unspecified location- Primary Influenza A Influenza with other respiratory manifestations documented in this encounter Care Teams Sas Bi Developer Relationship Specialty Start Date [place] [address] [place] [address] PCP - General FAMILY PRACTICE 02/27/18 documented as of this encounter
--- OUTSIDE RECORDS SUMMARY | 2024-04-27 18:26 | XMS_ITS | Encounter Summary ---
Author Organization [facility] Address [facility] 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
--- OUTSIDE RECORDS SUMMARY | 2024-04-27 18:26 | XMS_ITS | Encounter Summary ---
Author Organization [facility] Address [address] [place] [address]. [place], [place] [address] [place] [address] Care Team Providers Care Tool Filer Name Role Phone Etienne Sanchez MD Primary Care Provider [phone] Reason for Referral * (Routine) - Closed Specialty Diagnoses / Procedures Referred By Hugo sharp Referred To Contact Diagnoses Chronic pain of both knees Procedures Joint Aspiration/Injection Etienne Sanchez MD [address] [place] [address] Phone: tel: fax: Referral ID Status Reason Start Date Expiration Date Visits Re quested Visits Authorized [id number] Closed 12/11/2018 01/12/2020 1 1 * (Routine) - Closed Specialty Diagnoses / Procedures Referred By Hugo sharp Referred To Contact Diagnoses Chronic pain of both knees Procedures Joint Aspiration/Injection Etienne Sanchez MD [address] [place] [address] Phone: tel: fax: Referral ID Status Reason Start Date Expiration Date Visits Re quested Visits Authorized [id number] Closed 12/11/2018 01/12/2020 1 1 Reason for Visit * Reason Comments Knee Pain c/o pain in both kne es, here for steroid injections Encounter Details Date Type Department Care Team (Late st Contact Info) Description 12/09/2018 4:40 PM CDT Office Visit [facility] Family & Internal Medicine [address] [address] [place] [address] [place] [address] Knee Pain (c/o pain in both knees, here for steroid injections) Social History Tobacco Use Types Packs/Day [...] Sexual Orientation Straight 03/28/2018 4: 44 PM HOT 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 Not on file Not on file documented as of this encounter Last Filed Vital Signs Vital Sign Reading Time Taken Comments Blood Pressure 132/68 12/09/2018 4:34 PM CDT Pulse 83 12/09/2018 4:34 PM CDT Temperature - - Respiratory Rate 18 12/09/2018 4:34 PM CDT Oxygen Saturation 97% 12/09/2018 4:34 PM CDT Inhaled Oxygen Concentration - - Weight 70.8 kg (156 lb) 12/09/2018 4:34 PM CDT Height 175.3 cm (5' 9 ) 12/09/2018 4:34 PM CDT Body Mass Index 23.04 12/09/2018 4:34 PM CDT documented in this encounter Patient Instructions * Patient Instructions* Etienne Sanchez MD - 12/09/2018 4:40 PM CDT Advised to do gentle range of motion exercises and ice as tolerated and if any redness,swelling or fever to notify the office documented in this encounter Progress Notes * Etienne Sanchez MD - 12/09/2018 4:40 PM CDTAssociated Order(s): Joint Aspiration/Injection; Joint Aspiration/Injection Post-Procedure Diagnose(s): Chronic pain of both knees Images from the original note were not included. Office Progress Note Reason for Visit: Knee Pain (c/o pain in both knees, here for steroid injections) History of Present Illness: HPI Pt with chronic bilateral knee pain presents for routine knee injections every 3-6 months, and no new changes other than increasing pain without edema, fever, warmth, rash or paresthesia ROS: Review of Systems Constitutional: Negative for fever and weight loss. HENT: Negative for sore throat. Cardiovascular: Negative for leg swelling. Musculoskeletal: Positive for joint pain. Negative for back pain. Skin: Negative for rash. Neurological: Negative for tingling and sensory change. Psychiatric/Behavioral: Negative for depression. The patient is [...] daily., Disp: 90 tablet, Rfl: 0 ??? MONTELUKAST 10 MG tablet, TAKE 1 [...] High school graduate Occupational History ??? 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 Financial resource strain: Not [...] file Gets together: Not on file Attends mu-ism service: Not on file Active member of [...] supple. No JVD present. Cardiovascular: Normal rate, normal heart sounds and intact distal pulses. Pulmonary/Chest: Effort normal. He has no rales. Musculoskeletal: Bilateral tibial plateau tenderness left greater than right with no effusion, calor Neurological: He is alert and oriented to person, place, and time. Skin: Skin is warm. No rash noted. Psychiatric: He has a normal mood and affect. His behavior is normal. Nursing note and vitals reviewed. Filed Vitals: 12/09/18 1634 BP: 132/68 Pulse: 83 Resp: 18 SpO2: 97% Weight: 70.8 kg (156 lb) Height: 5' 9 (1.753 m) Joint Aspiration/Injection Date/Time: 12/11/2018 9:47 PM Performed by: Etienne Sanchez MD Authorized by: Etienne Sanchez MD Indications: pain Body area: knee Joint: right knee Local anesthesia used: yes Anesthesia: local infiltration Anesthesia: Local anesthesia used: yes Local Anesthetic: lidocaine 1% with epinephrine Anesthetic total: 1 mL Sedation: Patient sedated: no Preparation: Patient was prepped and draped in the usual sterile fashion. Needle gauge: 27. Ultrasound guidance: no Approach: anterior Triamcinolone amount: 40 mg Patient tolerance: Patient tolerated the procedure well with no immediate complications Joint Aspiration/Injection Date/Time: 12/11/2018 9:48 PM Performed by: Etienne Sanchez MD Authorized by: Etienne Sanchez MD Indications: pain Body area: knee Joint: left knee Local anesthesia used: yes Anesthesia: local infiltration Anesthesia: Local anesthesia used: yes Local Anesthetic: lidocaine 1% with epinephrine Anesthetic total: 1 mL Sedation: Patient sedated: no Preparation: Patient was prepped and draped in the usual sterile fashion. Needle gauge: 27. Ultrasound guidance: no Approach: anterior Triamcinolone amount: 40 mg Patient tolerance: Patient tolerated the procedure well with no immediate complications Diagnoses/Impression: 1. Chronic pain of both knees triamcinolone acetonide (KENALOG-40) injection 40 mg triamcinolone acetonide (KENALOG-40) injection 40 mg Recommendations and Plan: 1. Chronic pain of both knees - triamcinolone acetonide (KENALOG-40) injection 40 mg - triamcinolone acetonide (KENALOG-40) injection 40 mg PCP: ETIENNE SANCHEZ MD 12/11/2018 documented in this encounter Plan of Treatment Upcoming Encounters Date Type Department Care Team (Late st Contact Info) Description 06/09/2024 4:20 PM HOT PACKER Office Visit [facility] Family & Internal Medicine [facility] [address] [place] [address] [place] [address] [place] [address] documented as of this encounter Procedures Procedure Name Priority Date/Time Associated Diagnosis Comments JOINT ASPIRATION/INJECTIO N Routine 12/09/2018 4:40 PM CDT Chronic pain of both knees JOINT ASPIRATION/INJECTIO N Routine 12/09/2018 4:40 PM CDT Chronic pain of both knees documented in this encounter Results * Joint Aspiration/Injection (12/09/2018 4:40 PM CDT) Narrative Etienne Sanchez MD - 12/09/2018 4:40 PM CDT Etienne Sanchez MD ? 12/11/2018 ??9:49 PM Joint Aspiration/Injection Date/Time: 12/11/2018 9:48 PM Performed by: Etienne Sanchez MD Authorized by: Etienne Sanchez MD Indications: pain Body area: knee Joint: left knee Local anesthesia used: yes Anesthesia: local infiltration Anesthesia: Local anesthesia used: yes Local Anesthetic: lidocaine 1% with epinephrine Anesthetic total: 1 mL Sedation: Patient sedated: no Preparation: Patient was prepped and draped in the usual sterile fashion. Needle gauge: 27. Ultrasound guidance: no Approach: anterior Triamcinolone amount: 40 mg Patient tolerance: Patient tolerated the procedure well with no immediate complications us Etienne Sanchez MD PROCEDURE/MINOR SURGICAL OR DERABLES Final Result * Joint Aspiration/Injection (12/09/2018 4:40 PM CDT) Narrative Etienne Sanchez MD - 12/09/2018 4:40 PM CDT Etienne Sanchez MD ? 12/11/2018 ??9:49 PM Joint Aspiration/Injection Date/Time: 12/11/2018 9:47 PM Performed by: Etienne Sanchez MD Authorized by: Etienne Sanchez MD Indications: pain Body area: knee Joint: right knee Local anesthesia used: yes Anesthesia: local infiltration Anesthesia: Local anesthesia used: yes Local Anesthetic: lidocaine 1% with epinephrine Anesthetic total: 1 mL Sedation: Patient sedated: no Preparation: Patient was prepped and draped in the usual sterile fashion. Needle gauge: 27. Ultrasound guidance: no Approach: anterior Triamcinolone amount: 40 mg Patient tolerance: Patient [...] 40 mg, Intramuscular, Once, 1 dose, On Sun12/09/18 at 1700, Shake WellIndications:Chronic pain of both knees Given 12/09/2018 4:40 PM CDT 40 mg Othe r triamcinolone acetonide (KENALOG-40) injection 40 mg 40 mg, Intramuscular, Once, 1 dose, On Sun12/09/18 at 1700, Shake WellIndications:Chronic pain of both knees Given 12/09/2018 4:40 PM CDT 40 mg Othe r documented in this encounter Care Teams Tool Filer Relationship Specialty [place] [address] [place] [address] PCP - General FAMILY PRACTICE 02/27/18 documented as of this encounter
--- OUTSIDE RECORDS SUMMARY | 2024-04-27 18:26 | XMS_ITS | Encounter Summary ---
Author Organization [facility] Address [address] [place] [address]. 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 documented as of this encounter Plan of Treatment Upcoming Encounters Date Type Department Care Team (Late Contact Info) Description 06/09/2024 4:20 PM RADIO MACHINIST Office Visit [facility] Family & Internal Medicine [facility] [address] [place] [address] [place] [address] [place] [address] documented as of this encounter Procedures Procedure Name Priority Date/Time Associated Diagnosis Comments URINALYSIS WI REFLEX TO CULTURE STAT 05/06/2017 2:34 PM RADIO MACHINIST documented in this encounter Results * (ABNORMAL) URINALYSIS WI REFLEX TO CULTURE (05/06/2017 2:34 PM RADIO MACHINIST) COLOR (U) YELLOW 05/06/2017 3:07 PM [facility] TRANSPARENCY CLEAR 05/06/2017 3:07 PM [facility] SPECIFIC GRAVITY (U) <1.005 1.000 - 1.030 05/06/2017 3:07 PM [facility] U PH 6.0 5.0 - 9.0 05/06/2017 3:07 PM [facility] LEUKOCYTES (U) NEGATIVE NEGATIVE 05/06/2017 3:07 PM [facility] NITRITES NEGATIVE NEGATIVE 05/06/2017 3:07 PM [facility] PROTEIN (U) NEGATIVE NEGATIVE 05/06/2017 3:07 PM [facility] URINE GLUCOSE 3+(A) NEGATIVE 05/06/2017 3:07 PM [facility] KETONES MG/DL (U) NEGATIVE NEGATIVE 05/06/2017 3:07 PM [facility] BILIRUBIN (U) NEGATIVE NEGATIVE 05/06/2017 3:07 PM [facility] BLOOD (U) NEGATIVE NEGATIVE 05/06/2017 3:07 PM [facility] WBC/HPF NONE SEEN 0 - 5 /HPF 05/06/2017 3:07 PM [facility] RBC/HPF NONE SEEN 0 - 5 /HPF 05/06/2017 3:07 PM [facility] EPI/HPF NONE SEEN /HPF 05/06/2017 3:07 PM [facility] CULTURE & SENSITIVITY INDICATED? CULTURE IS NOT INDICATED 05/06/2017 3:07 PM [facility] 05/06/2017 2:34 PM RADIO MACHINIST 05/06/2017 2:35 PM RADIO MACHINIST us Generic Conversion Md TORRES URINE ORDERABLES Final Result Performing Organization Address [facility]/State/ZIP Co de Phone Number [facility] [address] [place] [address], documented in this encounter Visit Diagnoses Diagnosis Constipation Unspecified constipation documented in this encounter Care Teams Engineer Second Assistant Relationship Specialty Start [place] [address] [place] [address] PCP - General FAMILY PRACTICE 02/27/18 documented as of this encounter
--- OUTSIDE RECORDS SUMMARY | 2024-04-27 18:26 | XMS_ITS | Encounter Summary ---
Author Organization [facility] Address [address] [place] [address]. [place] [address] [place] [address] Care Team Providers Care Riveting Machine Operator Name Role Phone Etienne Sanchez MD Primary Care Provider [phone] Reason for Visit * Reason Comments Sinus Problem facial pain Encounter Details Date Type Department Care Team (Late st Contact Info) Description 03/28/2018 4:40 PM SUPERVISOR PIT AND AUXILIARIES Office Visit [facility] Family & Internal Medicine [facility] [id number] [place] [address] [place] [id number] [place] [address] Sinus Problem (facial pain) Social History Tobacco Use Types Packs/Day [...] Orientation Straight 03/28/2018 4: 44 PM SUPERVISOR PIT [employer] AUXILIARIES 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 Not on file Not on file documented as of this encounter Last Filed Vital Signs Vital Sign Reading Time Taken Comments Blood Pressure 146/82 03/28/2018 4:42 PM SUPERVISOR [employer] AUXILIARIES Pulse 102 03/28/2018 4:42 PM SUPERVISOR [employer] AUXILIARIES Temperature 36.8 ??C (98.3 ??F) 03/28/2018 4:42 PM CS T Respiratory Rate 16 03/28/2018 4:42 PM SUPERVISOR [employer] AUXILIARIES Oxygen Saturation 98% 03/28/2018 4:42 PM SUPERVISOR [employer] AUXILIARIES Inhaled Oxygen Concentration - - Weight 66.6 kg (146 lb 12.8 oz) 03/28/2018 4:42 PM SUPERVISOR P[employer] AUXILIARIES Height 175.3 cm (5' 9 ) 03/28/2018 4:42 PM SUPERVISOR [employer] AUXILIARIES Body Mass Index 21.68 03/28/2018 4:42 PM SUPERVISOR P[employer] AUXILIARIES documented in this encounter Patient Instructions * Patient Instructions* Etienne Sanchez MD - 03/28/2018 4:40 PM SUPERVISOR [employer]UXILI[employer]IES Acute sinusitis: rest push fluids, tylenol as needed and will start amoxil and advised mucinex and afrin if needed but no longer than three days documented in this encounter Progress Notes * Etienne Sanchez MD - 03/28/2018 4:40 PM CST Images from the original note were not included. Office Progress Note Reason for Visit: Sinus Problem (facial pain) History of Present Illness: HPI Pt with facial pain, pressure and nasal congestion with low grade fever for over a week, has some post nasal drainage with slight non productive cough denies chills, rigor, sob, wheezing, N/V/D ROS: Review of Systems Constitutional: Positive for fever. Negative for chills, malaise/fatigue and weight loss. HENT: Positive for congestion and sinus pain. Negative for ear discharge, hearing loss, nosebleeds,sore throat and tinnitus. Eyes: Negative for discharge and redness. Respiratory: Positive for cough. Negative for shortness of breath and wheezing. Cardiovascular: Negative for chest pain and palpitations. Gastrointestinal: Negative for diarrhea and nausea. Musculoskeletal: Negative for myalgias. Skin: Negative for rash. Neurological: Negative for dizziness and headaches. Endo/Heme/Allergies: Negative for environmental allergies. Psychiatric/Behavioral: Negative for depression. The patient does not have insomnia. Medications: Current Outpatient Medications: ??? aspirin 81 MG tablet, Take 1 tablet by mouth daily., Disp: , Rfl: ??? clobetasol 0.05 % Cream, Apply 1 Dose topically 2 (two) times daily., Disp: , Rfl: ??? METFORMIN 500 MG tablet, TAKE 2 TABLETS BY MOUTH TWICE DAILY, Disp: 360 tablet, Rfl: 1 ??? 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 Financial resource strain: Not [...] file Gets together: Not on file Attends sabianist service: Not on file Active member of [...] time. He appears well- developed and well-nourished. No distress. HENT: Nose boggy with clear rhinorrhea, ears with bilateral mucoid air fluid level with no erythema or exudate Eyes: Conjunctivae and EOM are normal. Pupils are equal, round, and reactive to light. Neck: Neck supple. Cardiovascular: Normal rate and regular rhythm. Pulmonary/Chest: Effort normal and breath sounds normal. No respiratory distress. He has no wheezes. Abdominal: Bowel sounds are normal. There is no tenderness. Musculoskeletal: He exhibits no edema. Lymphadenopathy: He has no cervical adenopathy. Neurological: He is alert and oriented to person, place, and time. Skin: Skin is warm. No rash noted. Psychiatric: He has a normal mood and affect. His behavior is normal. Nursing note and vitals reviewed. Filed Vitals: 03/28/18 1642 BP: 146/82 Pulse: 102 Resp: 16 Temp: 98.3 ??F (36.8 ??C) TempSrc: Oral SpO2: 98% Weight: 66.6 kg (146 lb 12.8 oz) Height: 5' 9 (1.753 m) Diagnoses/Impression: 1. Acute non-recurrent frontal sinusitis amoxicillin 500 MG capsule Recommendations and Plan: 1. Acute non-recurrent frontal sinusitis - amoxicillin 500 MG capsule; Take 1 capsule (500 mg total) by mouth 3 (three) times daily for 10 days. Dispense: 30 capsule; Refill: 0 PCP: ETIENNE SANCHEZ MD 10/28/2018 documented in this encounter Plan of Treatment Upcoming Encounters Date Type Department Care Team (Late st Contact Info) Description 06/09/2024 4:20 PM SUPERVISOR [employer] AUXILIARIES Office Visit [facility] Medical Group Family & Internal Medicine [facility] [address] [place] [address] [place] [address] [place], [place] [id number] documented as of this encounter Visit Diagnoses Diagnosis Acute non-recurrent frontal sinusitis- Primary documented in this encounter Care Teams Riveting Machine Operator Relationship Specialty [place] [address] [place], [place] [id number] PCP - General FAMILY PRACTICE 02/27/18 documented as of this encounter
--- OUTSIDE RECORDS SUMMARY | 2024-04-27 18:26 | XMS_ITS | Encounter Summary ---
Author Organization [facility] Address [facility] 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 I SAID THAT WOULD NOT BE POSSIBLE AND SHE SAID SHE WOULD TRY TO FIND SOMEWHERE ELSE THAT HAS LATER APPT. Signatures Electronically signed by : Danita Dutton MA; Oct 09 2017 1:17PM SENIOR SQL DATABASE DEVELOPER (Author) documented in this encounter Plan of Treatment Upcoming Encounters Date Type Department Care Team (Late st Contact Info) Description 06/09/2024 4:20 PM SENIOR SQL DATABASE DEVELOPER Office Visit [facility] Medical Group Family & Internal Medicine [facility] [address] [place] [address] [place] [address] [place] [address] documented as of this encounter Visit Diagnoses Not on filedocumented in this encounter
--- OUTSIDE RECORDS SUMMARY | 2024-04-27 18:26 | XMS_ITS | Encounter Summary ---
Author Organization [facility] Address [address] [place] [address]. 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 Not on file Not on file documented as of this encounter Plan of Treatment Upcoming Encounters Date Type Department Care Team (Late st Contact Info) Description 06/09/2024 4:20 PM OPHTHALMIC MEDICAL ASSISTANT Office Visit [facility] Medical Group Family & Internal Medicine [facility] [address] [place] [address] [place] [address] [place] [address] documented as of this encounter Visit Diagnoses Not on filedocumented in this encounter Care Teams Application Lead Relationship Specialty Start [place] [address] [place] [address] PCP - General FAMILY PRACTICE 02/27/18 documented as of this encounter
--- OUTSIDE RECORDS SUMMARY | 2024-04-27 18:26 | XMS_ITS | Encounter Summary ---
Author Organization [facility] Address [address] [place] [address]. 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 States it has been ongoing for the last three weeks. History of Present Illness Stye (Brief): The patient is being seen for an initial evaluation of a stye. Symptoms: eyelid pain,eyelid swelling, eyelid redness, eyelid pustule, foreign body sensation and eyelid crusting. The patient is currently experiencing symptoms. Associated symptoms: no blurred vision, no photophobia, noeye redness, no eye pain and no fever. Review of Systems See HPI for pertinent positives. Constitutional: no fever. ENT: no sore throat and no nasal discharge. Respiratory: no cough. Genitourinary: no dysuria. Integumentary: no skin rash. Neurological: no dizziness. Psychiatric: Normal.. Active Problems 1. Abdominal pain (789.00) (R10.9) 2. Anxiety (300.00) (F41.9) 3. Bilateral knee pain (719.46) (M25.561,M25.562) 4. Bilateral shoulder pain (719.41) (M25.511,M25.512) 5. Cancer of tongue (141.9) (C02.9) 6. Cholecystolithiasis (574.20) (K80.20) 7. Constipation, acute (564.00) (K59.00) 8. Dyslipidemia (272.4) (E78.5) 9. Hypertension (401.9) (I10) 10. Hypogonadism, testicular (257.2) (E29.1) 11. Left shoulder pain (719.41) (M25.512) 12. Palpable mass of neck (784.2) (R22.1) 13. Seasonal allergies (477.9) (J30.2) 14. Shoulder pain, right (719.41) (M25.511) 15. Smokeless tobacco use (305.1) (Z72.0) 16. Type 2 diabetes mellitus (250.00) (E11.9) Past Medical History 1. History of Ankle injury (959.7) (S99.919A) 2. History of Arthritis, multiple joint involvement (716.99) (M12.9) 3. History of Hay fever (477.9) (J30.1) 4. History of acute bronchitis (V12.69) (Z87.09) 5. History of acute bronchitis (V12.69) (Z87.09) 6. History of acute bronchitis (V12.69) (Z87.09) 7. History of acute bronchitis with bronchospasm (V12.69) (Z87.09) 8. History of acute sinusitis (V12.69) (Z87.09) 9. History of acute sinusitis (V12.69) (Z87.09) 10. History of acute sinusitis (V12.69) (Z87.09) 11. History of acute sinusitis (V12.69) (Z87.09) 12. History of atopic dermatitis (V13.3) (Z87.2) 13. History of chronic sinusitis (V12.69) (Z87.09) 14. History of diabetes mellitus (V12.29) (Z86.39) 15. History of fracture of upper extremity (V15.51) (Z87.81) ?? left forearm 16. History of Left forearm pain (729.5) (M79.632) 17. History of Left knee pain (719.46) (M25.562) 18. History of Left knee pain (719.46) (M25.562) 19. History of Osteoarthritis of knee (715.36) (M17.10) 20. History of Prostate cancer screening (V76.44) (Z12.5) 21. History of Right knee pain (719.46) (M25.561) 22. History of Tongue lesion (529.8) (K14.8) Surgical [...] MG TABS; TAKE 1 TABLET DAILY; Therapy: 06Nws1059 to (Evaluate:91Vio8698) Recorded Dispense: 30 Days ; #:30 Tablet; Refill: 0; MICHEL = N; Record; Last Updated By: Ivone Stokes; 11/30/2014 4:03:27 PM 2. Atorvastatin Calcium 20 MG Oral Tablet; TAKE 1 TABLET AT BEDTIME; Therapy: 93Ywt9626 to (Evaluate:04Mar2018) Requested for: 83Fih6996; Last Rx:[id number] Ordered Rx By: León Sanchez; Dispense: 90 Days ; #:90 Tablet; Refill: 0; For: Dyslipidemia; MICHEL = N; Verified Transmission to [place] [address]; Last Updated By: Daniel MorganTravelogy; 12/04/2017 10:25:27 AM 3. BusPIRone HCl - 10 MG Oral Tablet; one tablet three times a day as needed; Therapy: 26Kzx8510 to (Last Rx:82Lre1561) Requested for: 10Djz4429 Ordered Rx By: León Sanchez; Dispense: 0 Days ; #:60 Tablet; Refill: 0; For: Anxiety; MICHEL = N; VerifiedTransmission to [place] [address]; Last Updated By: YellowHammerDanielTravelogy; 10/18/2017 5:05:06 PM 4. Clobetasol Propionate E 0.05 % External Cream; APPLY SPARINGLY AND GENTLY MASSAGE INTO AFFECTED AREA(S) TWICE DAILY, use for up to two weeks at a time; Therapy: 79Mhv3750 to Requested for: 59Rde7988 Recorded Dispense: 0 Days ; #:1 X 60 GM Tube; Refill: 0; For: PMH: History of atopic dermatitis; MICHEL = N; Record; Last Updated By: Sarah Beck; 11/28/2017 3:33:15 PM 5. Lisinopril 10 MG Oral Tablet; TAKE ONE TABLET BY MOUTH ONCE DAILY FOR BLOOD PRESSURE; Therapy: 24Mhr4839 to (Evaluate:03Jul2018) Requested for: 24Els5320; Last Rx:04Jan2018 Ordered Rx By: León Sanchez; Dispense: 90 Days ; #:90 Tablet; Refill: 1; For: Hypertension; MICHEL = N; Verified Transmission to [place] [address]; Msg to Pharmacy: PT MUST HAVE APPT FOR FURTHER REFILLS; Last Updated By: Corinne Morgan; 01/04/2018 4:30:19 PM 6. MetFORMIN HCl - 500 MG Oral Tablet; TAKE TWO TABLETS BY MOUTH TWICE DAILY; Therapy: 29Jan2012 to (Evaluate:43Zsq2722) Requested for: 15Jun2017; Last Rx:15Jun2017 Ordered Rx By: León Sanchez; Dispense: 90 Days ; #:360 Tablet; Refill: 1; For: Type 2 diabetes mellitus; MICHEL = N; Verified Transmission to [place] [address]; Last Updated By: Corinne Morgan; 06/15/2017 11:50:49 AM 7. Montelukast Sodium 10 MG Oral Tablet; TAKE 1 TABLET BY MOUTH ONCE DAILY AT BEDTIME; Therapy: 22Jun2017 to (Evaluate:13May2018) Requested for: 12Feb2018; Last Rx:12Feb2018 Ordered Rx By: León Sanchez; Dispense: 90 Days ; #:90 Tablet; Refill: 0; For: PMH: History of acute bronchitis; MICHEL = N; Verified Transmission to [place] [address]; Last Updated By: Corinne Morgan; 02/12/2018 8:49:44 AM Allergies 1. Codeine Sulfate TABS Updated By: Lesly Lovett; 02/13/2017 8:09:49 AM 2. Darvocet-N 100 TABS Recorded By: Deepthi Hernandez; 11/29/2011 4:45:28 PM Vitals Recorded: 14Feb2018 09:36AM Heart Rate 85 Respiration 18 Systolic 172 Diastolic 88 O2 Saturation 99 Height 5 ft 9 in Weight 146 lb BMI Calculated 21.56 BSA Calculated 1.81 Physical Exam Constitutional General appearance: No acute distress, well appearing and well nourished. Eyes Conjunctiva and lids: Abnormal. left lower eyelid with tender erythematous papule with some crusting. Pupils and irises: Equal, round and reactive to light. Ears, Nose, Mouth, and Throat External inspection of ears and nose: Normal. Otoscopic examination: Tympanic membrane translucent with normal light reflex. Canals patent without erythema. Oropharynx: Normal with no erythema, edema, exudate or lesions. Pulmonary Auscultation of lungs: Clear to auscultation. Lymphatic Palpation of lymph nodes in neck: No lymphadenopathy. Skin Skin and subcutaneous tissue: Normal without rashes or lesions. Neurologic Cranial nerves: Cranial nerves 2-12 intact. Psychiatric Orientation to person, place and time: Normal. Mood and affect: Normal. Assessment 1. Sty, external (373.11) (H00.019) Plan Sty, external 1. Rodrigo-Polycin [id number] Ophthalmic Ointment; APPLY SMALL AMOUNT OF OINTMENT EVERY 3 -4 HOURS AND AT BEDTIME FOR 7-10 DAYS Rx By: León Sanchez; Dispense: 0 Days ; #:1 X 3.5 GM Tube; Refill: 0; For: Sty, external; MICHEL =N; [facility]) sty: pt education and advised warm compresses and will start neoplycin opth onit and if no change or worsening symptoms to notify the office Signatures Electronically signed by : León Sanchez M.D.; Feb 14 2018 10:08AM CASHIER SELF SERVICE GASOLINE (Author) IER SELF SERVICE GASOLINE documented in this encounter Plan of Treatment Upcoming Encounters Date Type Department Care Team (Late st Contact Info) Description 06/09/2024 4:20 PM CASHIER SELF SERVICE GASOLINE Office Visit [facility] Medical Group Family & Internal Medicine [facility] [address] [place] [address] [place] [address] [place] [address] documented as of this encounter Visit Diagnoses Not on filedocumented in this encounter Care Teams Billing Machine Operator Relationship Specialty Start [place] [address] [place] [address] PCP - General FAMILY PRACTICE 02/27/18 documented as of this encounter
--- OUTSIDE RECORDS SUMMARY | 2024-04-27 18:26 | XMS_ITS | Encounter Summary ---
Author Organization [facility] Address [address] [place] [address]. [place] [address] [place] [address] Care Team Providers Care Tomb Maker Helper Name Role Phone Unavailable Primary Care Provider Unavailabl e Encounter Details Date Type Department Care Team (Late st Contact Info) Description 09/06/2017 Abstract [facility] Family & Internal Medicine [facility] [address] [place] [address] [place] [address] [place] [address] Social History Tobacco Use Types Packs/Day Years Used Date Smoking Tobacco: Never Assessed Sex and Gender Information Value Date Recorded Sex Assigned at Not on file Legal Sex Male 6:22 PM CDT Gender Identity Not on file Sexual Orientation Straight 03/28/2018 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 documented as of this encounter Last Filed Vital Signs Vital Sign Reading Time Taken Comments Blood Pressure 139/74 09/06/2017 4:43 PM CDT Pulse 88 09/06/2017 4:43 PM CDT Temperature - - Respiratory Rate - - Oxygen Saturation - - Inhaled Oxygen Concentration - - Weight 64.9 kg (143 lb) 09/06/2017 4:43 PM CDT Height 175.3 cm (5' 9 ) 09/06/2017 4:43 PM CDT Body Mass Index 21.12 09/06/2017 4:43 PM CDT documented in this encounter Progress Notes * Generic Conversion MD Javier - 09/06/2017 4:20 PM CDT Message Recorded as Task Date: 09/11/2017 02:36 PM, Created By: Cris Lu Task Name: Follow Up [facility] Regarding Patient: Sonny Singleton, Status: Active Comment: Cris Lu - 11 Sep 2017 2:36 PM TASK CREATED Need medication information updated and charged. Thank you. Ashlee Jennings - 11 Sep 2017 3:18 PM TASK EDITED Charges and medications updated Signatures Electronically signed by : Ashlee Jennings R.N.; Sep 11 2017 3:18PM PROFESSOR OF COMMUNICATION (Author) * León Sanchez MD - 09/06/2017 4:20 PM CDT Chief Complaint Patient here for bilateral shoulder pain. Has been ongoing for several months, pain is getting worse. History of Present Illness Shoulder Pain: The patient is being seen for an initial evaluation of shoulder pain. Symptoms: shoulder pain, localized weakness and decreased range of motion at the shoulder, but no shoulder stiffness, no localized bruising, no localized swelling, no localized redness and no localized numbness. The patient is currently experiencing symptoms. Associated symptoms: arm pain, but no fever, no rash and no neck pain. Review of Systems See HPI for pertinent positives. Constitutional: no fever. Cardiovascular: no chest pain, no intermittent leg claudication and no lower extremity edema. Respiratory: no cough and no shortness of breath during exertion. Integumentary: no skin rash. Musculoskeletal: limb pain, joint stiffness and joint pain, but no joint swelling and no limb swelling. Neurological: limb weakness. Psychiatric: Normal.. Active Problems 1. Acute bronchitis (466.0) (J20.9) 2. Acute sinusitis (461.9) (J01.90) 3. Bilateral knee pain (719.46) (M25.561,M25.562) 4. Cancer of tongue (141.9) (C02.9) 5. Constipation, acute (564.00) (K59.00) 6. Dyslipidemia (272.4) (E78.5) 7. Hypertension (401.9) (I10) 8. Hypogonadism, testicular (257.2) (E29.1) 9. Palpable mass of neck (784.2) (R22.1) 10. Seasonal allergies (477.9) (J30.2) 11. Smokeless tobacco use (305.1) (Z72.0) 12. Type 2 diabetes mellitus (250.00) (E11.9) Past [...] TAKE 1 TABLET DAILY; Therapy: 30Nov2014 to (Evaluate:30Dec2014) Recorded Dispense: 30 Days ; #:30 Tablet; [...] mellitus; MICHEL = N; Verified Transmission to [facility]; Msg to Pharmacy: DX E 11.9; Last Updated By: Petcube; 03/14/2017 9:17:25 AM 3. Blood Glucose Monitor System w/Device Kit; PLEASE DISPENSE GLUCOMETER DEVICE THAT PTS INSURANCE WILL COVER. PT TO TEST BLOOD SUGAR BEFORE MEALS AND AT BEDTIME; Therapy: 14Mar2017 to (Last Rx:14Mar2017) Requested for: 14Mar2017 Ordered Rx By: León Sanchez; Dispense: 0 Days ; #:1 Kit; Refill: 0; For: Type 2 diabetes mellitus; MICHEL = N; Verified Transmission to [facility]; Msg to Pharmacy: dx E 11.9; Last Updated By: Petcube; 03/14/2017 10:40:55 AM 4. Blood Glucose Test In Vitro Strip; PLEASE DISPENSE TEST STRIPS THAT PTS INSURANCE WILL COVER, PT TO TEST BEFORE MEALS AND AT BEDTIME; Therapy: 14Mar2017 to (Last Rx:14Mar2017) Requested for: 14Mar2017 Ordered Rx By: León Sanchez; Dispense: 0 Days ; #:1 X 100 Strip Box; Refill: 0; For: Type 2 diabetes mellitus; MICHEL = N; Verified Transmission to [facility]; Msg to Pharmacy: DX E 11.9; Last Updated By: Petcube; 03/14/2017 10:40:57 AM 5. HumaLOG 100 UNIT/ML [...] mellitus; MICHEL = N; Verified Transmission to [facility]; Last Updated By: Petcube; 03/14/2017 9:17:24 AM 6. Invokana 300 MG Oral Tablet; TAKE 1 TABLET BY MOUTH DAILY; Therapy: 08May2017 to (Evaluate:[id number]) Recorded Dispense: 0 Days ; #: Sufficient Tablet; Refill: 0; MICHEL = N; Record; Last Updated By: Yamilex Smith; 05/08/2017 7:02:10 AM 7. Lactulose 10 GM/15ML Oral Solution; TAKE 15 ML DAILY; Therapy: 08May2017 to (Evaluate:[id number]) Requested for: 08May2017; Last Rx:08May2017 Ordered Rx By: León Sanchez; Dispense: 16 Days ; #:1 X 236 ML Bottle; Refill: 0; For: Constipation, acute; MICHEL = N; Verified Transmission to [facility]; Last Updated By: Francesca Pedraza; 05/08/2017 9:29:39 AM 8. Lancets 30G; PLEASE DISPENSE LANCETS THAT PTS INSURANCE WILL COVER, PT TO TEST BEFORE MEALS AND AT BEDTIME; Therapy: 14Mar2017 to (Last Rx:14Mar2017) Requested for: 14Mar2017 Ordered Rx By: León Sanchez; Dispense: 0 Days ; #:1 X 100 Unit Box; Refill: 2; For: Type 2 diabetes mellitus; MICHEL = N; Verified Transmission to [facility]; Last Updated By: Petcube;03/14/2017 10:40:54 AM 9. Lisinopril 10 MG Oral Tablet; TAKE ONE TABLET BY MOUTH ONCE DAILY FOR BLOOD PRESSURE; Therapy: 29Nov2011 to (Evaluate:[id number]) Requested for: 02Dec2016; Last Rx:02Dec2016 Ordered Rx By: Prudence Paredes; Dispense: 90 Days ; #:90 Tablet; Refill: 1; For: Hypertension; MICHEL = N; Verified Transmission to [facility]; Msg to Pharmacy: PT MUST HAVE APPT FOR FURTHER REFILLS; Last Updated By: Petcube; 12/02/2016 9:26:43 AM 10. MetFORMIN HCl - 500 MG Oral Tablet; TAKE TWO TABLETS BY MOUTH TWICE DAILY; Therapy: 29Jan2012 to (Evaluate:[id number]) Requested for: 15Jun2017; Last Rx:15Jun2017 Ordered Rx By: León Sanchez; Dispense: 90 Days ; #:360 Tablet; Refill: 1; For: Type 2 diabetes mellitus; MICHEL = N; Verified Transmission to [place] [address]; Last Updated By: Petcube; 06/15/2017 11:50:49 AM 11. Montelukast Sodium 10 MG Oral Tablet; TAKE 1 TABLET AT BEDTIME; Therapy: 22Jun2017 to (Evaluate:20Sep2017) Requested for: 22Jun2017; Last Rx:22Jun2017 Ordered Rx By: León Sanchez; Dispense: 30 Days ; #:30 Tablet; Refill: 2; For: Acute bronchitis; MICHEL = N; Verified Transmission to [place] [address]; Last Updated By: Petcube; 06/22/2017 3:17:32 PM 12. Ondansetron 4 MG Oral Tablet Disintegrating; DISSOLVE ONE TABLET IN MOUTH EVERY 6 HOURS NEEDED; Therapy: 22Jun2017 to (Last Rx:22Jun2017) Requested for: 22Jun2017 Ordered Rx By: León Sanchez; Dispense: 0 Days ; #:12 Tablet; Refill: 0; For: Acute bronchitis; MICHEL = N;Verified Transmission to [facility]; Last Updated By: Corinne Morgan; 06/22/2017 3:17:32 PM Allergies 1. Codeine Sulfate TABS Updated By: Lesly Lovett; 02/13/2017 8:09:49 AM 2. Darvocet-N 100 TABS Recorded By: Deepthi Hernandez; 11/29/2011 4:45:28 PM Vitals Recorded: [id number] 04:43PM Heart Rate 88 Respiration 18 Systolic 139 Diastolic 74 O2 Saturation 98 Height 5 ft 9 in Weight 143 lb BMI Calculated 21.12 BSA Calculated 1.79 Physical Exam Constitutional General appearance: No acute distress, well appearing and well nourished. Eyes Conjunctiva and lids: No swelling, erythema, or discharge. Pupils and irises: Equal, round and reactive to light. Pulmonary Auscultation of lungs: Clear to auscultation. Cardiovascular Auscultation of heart: Normal rate and rhythm, normal S1 and S2, without murmurs. Lymphatic Palpation of lymph nodes in neck: No lymphadenopathy. Musculoskeletal Gait and station: Normal. Digits and nails: Normal without clubbing or cyanosis. Inspection/palpation of joints, bones, and muscles: Abnormal. right shoulder with decreased range of motion with weakness and + empty can sign.. Skin Skin and subcutaneous tissue: Normal without rashes or lesions. Neurologic Cranial nerves: Cranial nerves 2-12 intact. Sensation: No sensory loss. Psychiatric Orientation to person, place and time: Normal. Mood and affect: Normal. Procedure after informed consent was signed area was cleaned with beta dine after joint being identified and then a local was given with lidociane and then the joint was injected with kenalog and lidociaine Assessment 1. Shoulder pain, right (719.41) (M25.511) 2. Left shoulder pain (719.41) (M25.512) Plan 1) Left and right shoulder pain: I am concerned about the possibility of a left rotator cuff tear and today did a injection and needs to consider physical therapy and possible MRI if no change Signatures Electronically signed by : León Sanchez M.D.; Sep 09 2017 4:16PM PROFESSOR OF COMMUNICATION (Author) documented in this encounter Plan of Treatment Upcoming Encounters Date Type Department Care Team (Late st Contact Info) Description 06/09/2024 4:20 PM PROFESSOR OF COMMUNICATION Office Visit [facility] Family & Internal Medicine [facility] [id number] [place] [address] [place] [address] [place] [address] documented as of this encounter Visit Diagnoses Not on filedocumented in this encounter
--- OUTSIDE RECORDS SUMMARY | 2024-04-27 18:26 | XMS_ITS | Encounter Summary ---
Author Organization [facility] Address [facility] 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
--- OUTSIDE RECORDS SUMMARY | 2024-04-27 18:26 | XMS_ITS | Encounter Summary ---
Author Organization [facility] Address [facility] [address] [place] [address] Care Team Providers Care Computer Typesetter Keyliner Name Role Phone Etienne Sanchez MD Primary Care Provider [phone] Reason for Visit * Reason Comments Follow Up Went to ER for upper gastric pain last . He had a CAT scan, which did not show anything. He did have elevated liver enzymes. Encounter Details Date Type Department Care Team (Late st Contact Info) Description 01/13/2019 4:20 PM CDT Office Visit [facility] Family & Internal Medicine [address] [address] Etienne Sanchez MD [address] [place] [address] Follow Up (Went to ER for upper gastric pain last . He had a CAT scan, which did not show anything. 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 Not on file Not on file documented as of this encounter Last Filed Vital Signs Vital Sign Reading Time Taken Comments Blood Pressure 136/88 01/13/2019 3:51 PM CDT Pulse 93 01/13/2019 3:51 PM CDT Temperature 37.1 ??C (98.7 ??F) 01/13/2019 3:51 PM CD T Respiratory Rate 18 01/13/2019 3:51 PM CDT Oxygen Saturation 98% 01/13/2019 3:51 PM CDT Inhaled Oxygen Concentration - - Weight 69.9 kg (154 lb) 01/13/2019 3:51 PM CDT Height 175.3 cm (5' 9 ) 01/13/2019 3:51 PM CDT Body Mass Index 22.74 01/13/2019 3:51 PM CDT documented in this encounter Patient Instructions * Patient Instructions* Etienne Sanchez MD - 01/13/2019 4:20 PM CDT I have reviewed his ER report and reviewed his CT abd and will refer him to surgery, for now have advised that he eat a low fat diet and if any fever, vomiting or abd pain to go to the ER documented in this encounter Progress Notes * Etienne Sanchez MD - 01/13/2019 4:20 PM CDT Images from the original note were not included. Office Progress Note Reason for Visit: Follow Up (Went to ER for upper gastric pain last . He had a CAT scan, which did not show anything. He did have elevated liver enzymes.) History of Present Illness: HPI Pt developed severe upper abdominal pain after eating several hamburgers from [employer]. Described as sharp radiating pain across his upper abdomen with nausea and vomiting, Has history of gall stones ROS: Review of Systems Constitutional: Negative for fever, malaise/fatigue and weight loss. HENT: Negative for sore throat. Respiratory: Negative for cough and shortness of breath. Cardiovascular: Negative for chest pain and palpitations. Gastrointestinal: Positive for abdominal pain, nausea and vomiting. Negative for constipation and diarrhea. Musculoskeletal: Negative for back pain. Skin: Negative for rash. Neurological: Negative for dizziness, tremors and headaches. Endo/Heme/Allergies: Does not bruise/bleed easily. Psychiatric/Behavioral: Negative for depression and substance abuse. The patient is not nervous/anxious. Medications: Current [...] Arthritis ??? Cancer (CMS/HCC) ??? Diabetes mellitus (CMS/[facility]) Surgical History: Past Surgical History: Procedure Laterality Date ??? ABDOMINAL SURGERY Social History: Social History Socioeconomic History ??? Marital status: Spouse name: Lisette ??? Number of children: 4 ??? Years of education: Not on file ??? Highest education level: High school graduate Occupational History ??? 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 Financial resource strain: Not [...] file Gets together: Not on file Attends taoism service: Not on file Active member of [...] developed and well-nourished. No distress. HENT: Head: Normocephalic. Eyes: Pupils are equal, round, and reactive to light. No scleral icterus. Neck: Neck supple. No JVD present. Cardiovascular: Normal rate and regular rhythm. Pulmonary/Chest: Effort normal. He has no rales. Abdominal: Soft. He exhibits no mass. There is no tenderness. Musculoskeletal: Normal range of motion. Neurological: He is alert and oriented to person, place, and time. Skin: Skin is warm. No jaundice Psychiatric: He has a normal mood and affect. His behavior is normal. Nursing note and vitals reviewed. Filed Vitals: 01/13/19 1551 BP: 136/88 Pulse: 93 Resp: 18 Temp: 98.7 ??F (37.1 ??C) TempSrc: Oral SpO2: 98% Weight: 69.9 kg (154 lb) Height: 5' 9 (1.753 m) Diagnoses/Impression: No diagnosis found. Recommendations and Plan: There are no diagnoses linked to this encounter. PCP: ETIENNE SANCHEZ MD 01/13/2019 documented in this encounter Plan of Treatment Upcoming Encounters Date Type Department Care Team (Late st Contact Info) Description 06/09/2024 4:20 PM CORPORATE COUNSELOR Office Visit [facility] Family & Internal Medicine [facility] [address] [place] [address] [place] [address] [place], [place] [id number] documented as of this encounter Visit Diagnoses Diagnosis Cholecystitis- Primary Cholecystitis, unspecified documented in this encounter Care Teams Computer Typesetter Keyliner Relationship Specialty [place] [address] [place] [address] PCP - General FAMILY PRACTICE 02/27/18 documented as of this encounter
--- OUTSIDE RECORDS SUMMARY | 2024-04-27 18:26 | XMS_ITS | Encounter Summary ---
Author Organization [facility] Address [facility]. [address] Care Team Providers Care Cafeteria Helper Name Role Phone Unavailable Primary Care Provider Unavailabl e Encounter Details Date Type Department Care Team (Latest Contact Info) Description 10/05/2017 Abstract [facility] Kareen Herrera MD Social History Tobacco Use Types Packs/Day Years Used Date Smoking Tobacco: Never Assessed Sex and Gender Information Value Date Recorded Sex Assigned at Not on file Legal Sex Male 6:22 PM CDT Gender Identity Not on file Sexual Orientation Straight 03/28/2018 4: 44 PM PRINTED CIRCUIT BOARDS STRIPPER ETCHER documented as of this encounter Progress Notes * Generic Conversion MD Javier - 10/05/2017 10:50 AM CDT Message Recorded as Task Date: 10/04/2017 04:42 PM, Created By: Beverly Miles Task Name: Informational Assigned To: [facility] Team Regarding Patient: Sonny Singleton, Status: Active Comment: Beverly Miles - 04 Oct 2017 4:42 PM TASK CREATED Please advise on US results and call pt spouse Ashlee Jennings - 05 Oct 2017 8:12 AM TASK EDITED per Dr. Sanchez pt needs to see Gen. Surgery, he needs his gallbladder taken out Ashlee Jennings - 05 Oct 2017 10:51 AM TASK EDITED Pt informed of results and referral placed Plan 1. General Surgery Referral Outpatient For: Abdominal pain For: Cholecystolithiasis Status: Need Information - Financial Authorization Requested for: 05Oct2017 Ordered JARAD; For: Abdominal pain, Cholecystolithiasis; Ordered By: León Sanchez Performed: Due: 12Oct2017; Last Updated By: Ahslee Jennings; 10/05/2017 10:50:50 AM Signatures Electronically signed by : Ashlee Jennings R.N.; Oct 05 2017 10:51AM PRINTED CIRCUIT BOARDS STRIPPER ETCHER (Author) documented in this encounter Plan of Treatment Upcoming Encounters Date Type Department Care Team (Late st Contact Info) Description 06/09/2024 4:20 PM PRINTED CIRCUIT BOARDS STRIPPER ETCHER Office Visit [facility] Family & Internal Medicine - [place] [id number] [place] [address] [place] [address] [place] [address] documented as of this encounter Visit Diagnoses Not on filedocumented in this encounter
--- OUTSIDE RECORDS SUMMARY | 2024-04-27 18:26 | XMS_ITS | Encounter Summary ---
Author Organization [facility] Address [address] [place] [address]. 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 Not on file Not on file documented as of this encounter Plan of Treatment Upcoming Encounters Date Type Department Care Team (Late st Contact Info) Description 06/09/2024 4:20 PM ENGINE LATHE SET UP OPERATOR Office Visit [facility] Family & Internal Medicine [facility] [address] [place] [address] [place] [address] [place] [address] documented as of this encounter Visit Diagnoses Not on filedocumented in this encounter Care Teams Senior Visual Designer Relationship Specialty Start [place] [address] [place] [address] PCP - General FAMILY PRACTICE 02/27/18 documented as of this encounter
--- OUTSIDE RECORDS SUMMARY | 2024-04-27 18:26 | XMS_ITS | Encounter Summary ---
Author Organization [facility] Address [facility]6 [facility] [place] [address] [place] [address] Care Team Providers Care Chain Forming Machine Operator Name Role Phone Unavailable Primary Care Provider Unavailabl e Encounter Details Date Type Department Care Team (Late st Contact Info) Description 05/08/2017 Abstract [facility] Medical Group Family & Internal Medicine [facility] [address] [place] [address] [place] [address] [place], [place] [id number] Social History Tobacco Use Types Packs/Day Years Used Date Smoking Tobacco: Never Assessed Sex and Gender Information Value Date Recorded Sex Assigned at Not on file Legal Sex Male 6:22 PM CDT Gender Identity Not on file Sexual Orientation Straight 03/28/2018 4: 44 PM FACILITY MAINTENANCE TECHNICIAN documented as of this encounter Last Filed Vital Signs Vital Sign Reading Time Taken Comments Blood Pressure 122/68 05/08/2017 6:56 AM FACILITY MAINTENANCE TECHNICIAN Pulse 92 05/08/2017 6:56 AM FACILITY MAINTENANCE TECHNICIAN Temperature - - Respiratory Rate - - Oxygen Saturation - - Inhaled Oxygen Concentration - - Weight 60.8 kg (134 lb) 05/08/2017 6:56 AM FACILITY MAINTENANCE TECHNICIAN Height 175.3 cm (5' 9 ) 05/08/2017 6:56 AM FACILITY MAINTENANCE TECHNICIAN Body Mass Index 19.79 05/08/2017 6:56 AM FACILITY MAINTENANCE TECHNICIAN documented in this encounter Progress Notes * León Sanchez MD - 05/08/2017 7:00 AM CST Reason For Visit Reason For Visit: Acute Visit Chief Complaint pt here c/o constipation for 5 days, states was seen in ER Sunday05/06/17 History of Present Illness Head/Neck Neoplasm (Brief): The patient is being seen for a routine clinic follow-up of malignant neoplasm of the head and/or neck. Symptoms: dysphagia, but no palpable mass, no otalgia, no diplopia,no nasal obstruction, no facial numbness, no facial paralysis, no cough, no difficulty breathing and no hoarseness. Associated symptoms: weight loss, but no fever, no chills and no weakness. Constipation (Brief): The patient is being seen for an initial evaluation of an existing diagnosis of constipation. Symptoms: infrequent stools, straining at stools, hard stools and small caliber stools, but no anal leakage. The patient is currently experiencing symptoms. Associated symptoms: no chills, no fever, no anorexia, no nausea, no weight loss, no rectal bleeding and no weakness. Diabetes: The patient is being seen for [...] mellitus; MICHEL = N; Verified Transmission to [facility]; Msg to Pharmacy: DX E 11.9; Last Updated By: Corinne Morgan; 03/14/2017 9:17:25 AM 3. Blood Glucose Monitor System w/Device Kit; PLEASE DISPENSE GLUCOMETER DEVICE THAT PTS INSURANCE WILL COVER. PT TO TEST BLOOD SUGAR BEFORE MEALS AND AT BEDTIME; Therapy: 14Mar2017 to (Last Rx:14Mar2017) Requested for: 14Mar2017 Ordered Rx By: León Sanchez; Dispense: 0 Days ; #:1 Kit; Refill: 0; For: Type 2 diabetes mellitus; MICHEL = N; Verified Transmission to [facility]; Msg to Pharmacy: dx E 11.9; Last Updated By: [facility]; 03/14/2017 10:40:55 AM 4. Blood Glucose Test In Vitro Strip; PLEASE DISPENSE TEST STRIPS THAT PTS INSURANCE WILL COVER, PT TO TEST BEFORE MEALS AND AT BEDTIME; Therapy: 14Mar2017 to (Last Rx:14Mar2017) Requested for: 14Mar2017 Ordered Rx By: León Sanchez; Dispense: 0 Days ; #:1 X 100 Strip Box; Refill: 0; For: Type 2 diabetes mellitus; MICHEL = N; Verified Transmission to [facility]; Msg to Pharmacy: DX E 11.9; Last Updated By: [facility]; 03/14/2017 10:40:57 AM 5. HumaLOG 100 UNIT/ML [...] mellitus; MICHEL = N; Verified Transmission to [facility]; Last Updated By: [facility]; 03/14/2017 9:17:24 AM 6. Invokana 300 MG Oral Tablet; TAKE 1 TABLET BY MOUTH DAILY; Therapy: 08May2017 to (Evaluate:[id number]) Recorded Dispense: 0 Days ; #: Sufficient Tablet; Refill: 0; MICHEL = N; Record; Last Updated By: Yamilex Smith; 05/08/2017 7:02:10 AM 7. Lancets 30G; PLEASE DISPENSE LANCETS THAT PTS INSURANCE WILL COVER, PT TO TEST BEFORE MEALS AND AT BEDTIME; Therapy: 14Mar2017 to (Last Rx:14Mar2017) Requested for: 14Mar2017 Ordered Rx By: León Sanchez; Dispense: 0 Days ; #:1 X 100 Unit Box; Refill: 2; For: Type 2 diabetes mellitus; MICHEL = N; Verified Transmission to [facility]; Last Updated By: [facility];03/14/2017 10:40:54 AM 8. Lisinopril 10 MG Oral Tablet; TAKE ONE TABLET BY MOUTH ONCE DAILY FOR BLOOD PRESSURE; Therapy: 78Avy1015 to (Evaluate:37Pfy7612) Requested for: 99Txg4903; Last Rx:[id number] Ordered Rx By: Prudence Paredes; Dispense: 90 Days ; #:90 Tablet; Refill: 1; For: Hypertension; MICHEL = N; Verified Transmission to [facility]; Msg to Pharmacy: PT MUST HAVE APPT FOR FURTHER REFILLS; Last Updated By: [facility]; 12/02/2016 9:26:43 AM 9. MetFORMIN HCl - 500 MG Oral Tablet; TAKE TWO TABLETS BY MOUTH TWICE DAILY; Therapy: 29Jan2012 to (Evaluate:[id number]) Requested for: 09Inr6641; Last Rx:[id number] Ordered Rx By: León Sanchez; Dispense: 23 Days ; #:90 Tablet; Refill: 1; For: Type 2 diabetes mellitus;MICHEL = N; Verified Transmission to [facility] 435; Last Updated By: [facility]; 04/11/2017 7:44:09 AM Allergies 1. Codeine Sulfate TABS Updated By: Lesly Lovett; 02/13/2017 8:09:49 AM 2. Darvocet-N 100 TABS Recorded By: Deepthi Hernandez; 11/29/2011 4:45:28 PM Vitals Recorded: 08May2017 06:56AM Heart Rate 92 Systolic 122 Diastolic 68 O2 Saturation 98 Height 5 ft 9 in Weight 134 lb BMI Calculated 19.79 BSA Calculated 1.74 Physical Exam Constitutional General appearance: No acute distress, well appearing and well nourished. Eyes Conjunctiva and lids: No swelling, erythema, or discharge. Pupils and irises: Equal, round and reactive to light. Ears, Nose, Mouth, and Throat Oropharynx: Abnormal. bilateral surgically healing scars.. Pulmonary [...] Normal. Mood and affect: Normal. Assessment 1. Type 2 diabetes mellitus (250.00) (E11.9) 2. Constipation, acute (564.00) (K59.00) 3. Hypertension (401.9) (I10) 4. Cancer of tongue (141.9) (C02.9) Plan Constipation, acute 1. 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, has had constipation which required him to go to the ER and now improved his sugars are stable probably because of not eating and for now will continue miralax and follow his glucose and oncology recommendations Signatures Electronically signed by : León Sanchez M.D.; May 12 2017 8:04PM FACILITY MAINTENANCE TECHNICIAN (Author) documented in this encounter Plan of Treatment Upcoming Encounters Date Type Department Care Team (Late st Contact Info) Description 06/09/2024 4:20 PM FACILITY MAINTENANCE TECHNICIAN Office Visit [facility] Family & Internal Medicine [facility] [address] [place] [address] León Sanchez MD [address] [place] [address] documented as of this encounter Visit Diagnoses Not on filedocumented in this encounter
--- OUTSIDE RECORDS SUMMARY | 2024-04-27 18:26 | XMS_ITS | Encounter Summary ---
Author Organization [facility] Address [facility]6 [facility] [place] [address] [place] [address] Care Team Providers Care Char Conveyor Tender Name Role Phone Unavailable Primary Care Provider Unavailabl e Encounter Details Date Type Department Care Team (Latest Contact Info) Description 02/28/2017 Abstract [facility] Medical Group Leana Johnson APNP Social History Tobacco Use Types Packs/Day Years Used Date Smoking Tobacco: Never Assessed Sex and Gender Information Value Date Recorded Sex Assigned at Not on file Legal Sex Male 6:22 PM CDT Gender Identity Not on file Sexual Orientation Straight 03/28/2018 4: 44 PM HEEL CEMENTER MACHINE documented as of this encounter Plan of Treatment Upcoming Encounters Date Type Department Care Team (Late st Contact Info) Description 06/09/2024 4:20 PM HEEL CEMENTER MACHINE Office Visit [facility] Medical Group Family & Internal Medicine [facility] [address] [place] [address] [place] [address] [place] [address] documented as of this encounter Visit Diagnoses Not on filedocumented in this encounter
--- OUTSIDE RECORDS SUMMARY | 2024-04-27 18:26 | XMS_ITS | Encounter Summary ---
Author Organization [facility] Address [facility]6 [facility] [place] [address] [place] [address] Care Team Providers Care Catheter Builder Name Role Phone Unavailable Primary Care Provider Unavailabl e Encounter Details Date Type Department Care Team (Latest Contact Info) Description 06/06/2017 Abstract [facility] Medical Group Social History Tobacco Use Types Packs/Day Years Used Date Smoking Tobacco: Never Assessed Sex and Gender Information Value Date Recorded Sex Assigned at Not on file Legal Sex Male 6:22 PM CDT Gender Identity Not on file Sexual Orientation Straight 03/28/2018 4: 44 PM CLOUD ENGINEER documented as of this encounter Plan of Treatment Upcoming Encounters Date Type Department Care Team (Late st Contact Info) Description 06/09/2024 4:20 PM CLOUD ENGINEER Office Visit [facility] Medical Group Family & Internal Medicine [facility] [address] [place] [address] [place] [address] [place] [address] documented as of this encounter Visit Diagnoses Not on filedocumented in this encounter
--- OUTSIDE RECORDS SUMMARY | 2024-04-27 18:26 | XMS_ITS | Encounter Summary ---
Author Organization [facility] Address [facility] [place] [address] [place] [address] Care Team Providers Care Shank Inspector Name Role Phone Unavailable Primary Care Provider Unavailabl e Encounter Details Date Type Department Care Team (Latest Contact Info) Description 05/23/2017 Abstract [facility] Medical Group Social History Tobacco Use Types Packs/Day Years Used Date Smoking Tobacco: Never Assessed Sex and Gender Information Value Date Recorded Sex Assigned at Not on file Legal Sex Male 6:22 PM CDT Gender Identity Not on file Sexual Orientation Straight 03/28/2018 4: 44 PM ORDER TAKERS SUPERVISOR documented as of this encounter Plan of Treatment Upcoming Encounters Date Type Department Care Team (Late st Contact Info) Description 06/09/2024 4:20 PM ORDER TAKERS SUPERVISOR Office Visit [facility] Medical Group Family & Internal Medicine [facility] [address] [place] [address] [place] [address] [place] [address] documented as of this encounter Visit Diagnoses Not on filedocumented in this encounter
--- OUTSIDE RECORDS SUMMARY | 2024-04-27 18:26 | XMS_ITS | Encounter Summary ---
Author Organization [facility] Address [facility] [place] [address] [place] [address] Care Team Providers Care Clinical Nursing Intern Name Role Phone Unavailable Primary Care Provider Unavailabl e Encounter Details Date Type Department Care Team (Latest Contact Info) Description 12/24/2017 Abstract [facility] Medical [place] [address] [place] [address] Social History Tobacco Use Types Packs/Day Years Used Date Smoking Tobacco: Never Assessed Sex and Gender Information Value Date Recorded Sex Assigned at Not on file Legal Sex Male 6:22 PM CDT Gender Identity Not on file Sexual Orientation Straight 03/28/2018 4: 44 PM GRAVEL ROOFER documented as of this encounter Last Filed Vital Signs Vital Sign Reading Time Taken Comments Blood Pressure 170/90 12/24/2017 4:34 PM CDT Pulse 88 12/24/2017 4:34 PM CDT Temperature - - Respiratory Rate - - Oxygen Saturation - - Inhaled Oxygen Concentration - - Weight 68.9 kg (152 lb) 12/24/2017 4:34 PM CDT Height 175.3 cm (5' 9 ) 12/24/2017 4:34 PM CDT Body Mass Index 22.45 12/24/2017 4:34 PM CDT documented in this encounter Progress Notes * Generic Conversion MD Javier - 12/24/2017 4:40 PM CDT Message Recorded as Task Date: 12/19/2017 03:20 PM, Created By: Shannan De La Cruz Task Name: Call Back [facility] Nurse Team Regarding Patient: Sonny Singleton, Status: Active Comment: Shannan De La Cruz - 19 Dec 2017 3:20 PM TASK CREATED Caller: Self; Other; Pt. is calling requesting to have an cortisone injection in his left knee this time and come back for the right. 1st available appt. with Dr. Sanchez is 12/24/17 at 440 pm I went ahead and sched him at that time if not good call and let him know. Sarah Beck - 19 Dec 2017 3:39 PM TASK EDITED Called and scheduled patient Signatures Electronically signed by : Sarah Beck, ; Dec 19 2017 3:39PM GRAVEL ROOFER (Author) * León Sanchez MD - 12/24/2017 4:40 PM CDT Chief Complaint Patient here today for bilateral knee injections, patient also has c/o sinus headache. BP is high, not on any medication for it. History of Present Illness Diabetes: The patient [...] is not adherent with his medication regimen.. Knee Pain: Sonny Singleton presents with complaints of knee pain. Associated symptoms include stiffness and decreased range of motion, but no swelling, no warmth, noredness, no ecchymosis, no locking, no instability, no difficulty bearing weight, no difficulty ambulating, no audible pop at the time of injury, no fever, no chills, no localized rash and no generalized rash. Review of Systems See HPI for pertinent [...] Palpable mass of neck (784.2) (R22.1) 15. Seasonal allergies (477.9) (J30.2) 16. Shoulder pain, right (719.41) (M25.511) 17. Smokeless tobacco use (305.1) (Z72.0) 18. Type 2 diabetes mellitus (250.00) (E11.9) Past [...] MG TABS; TAKE 1 TABLET DAILY; Therapy: 93Dck9210 to (Evaluate:44Lvv3591) Recorded 2. Atorvastatin Calcium 20 MG Oral Tablet; TAKE 1 TABLET AT BEDTIME; Therapy: 98Cqv2645 to (Evaluate:04Mar2018) Requested for: 78Feb1093; Last Rx:[id number] Ordered 3. BusPIRone HCl - 10 MG Oral Tablet; one tablet three times a day as needed; Therapy: 90Cmi7331 to (Last Rx:[id number]) Requested for: [id number] Ordered 4. Clobetasol Propionate E 0.05 % External Cream; APPLY SPARINGLY AND GENTLY MASSAGE INTO AFFECTED AREA(S) TWICE DAILY, use for up to two weeks at a time; Therapy: 72Usz4049 to Requested for: 16Aie2566 Recorded 5. MetFORMIN HCl - 500 MG Oral Tablet; TAKE TWO TABLETS BY MOUTH TWICE DAILY; Therapy: 29Jan2012 to (Evaluate:97Ycb1907) Requested for: 15Jun2017; Last Rx:15Jun2017 Ordered 6. Montelukast Sodium 10 MG Oral Tablet; TAKE 1 TABLET BY MOUTH ONCE DAILY AT BEDTIME; Therapy: 22Jun2017 to (Evaluate:49Anj3065) Requested for: 14Qqv8409; Last Rx:[id number] Ordered Allergies 1. Codeine Sulfate TABS 2. Darvocet-N 100 TABS Vitals Recorded: 24Dec2017 04:34PM Heart Rate 88 Respiration 16 Systolic 170 Diastolic 90 O2 Saturation 98 Height 5 ft 9 in Weight 152 lb BMI Calculated 22.45 BSA Calculated 1.84 Physical Exam Constitutional General appearance: No acute [...] time: Normal. Mood and affect: Normal. Procedure After informed consent was signed joint was identified and a local of lidocaine with eip was used then joint was injected with 1% lidocaine without epi and kenalog and bandaid applied then similar procedure was carried out on the right pt tolerated the procedure well Assessment 1. Bilateral knee pain (719.46) (M25.561,M25.562) 2. Hypertension (401.9) (I10) 3. Type 2 diabetes mellitus (250.00) (E11.9) Plan Type 2 diabetes mellitus 1. Compr Metabolic Prof ( CMP ); Status:Hold For - Manual Activation; Requested for:18Lpc6303; Perform:[facility]; Due:46Wnt9660;Ordered; For:Type 2 diabetes mellitus; Ordered By:León Sanchez; 2. Hemoglobin A1C ( HA1C ); Status:Hold For - Manual Activation; Requested for:56Rrp1278; Perform:[facility]; Due:48Odz7960;Ordered; For:Type 2 diabetes mellitus; Ordered By:León Sanchez; 1) Rest, ice, and gentle range of motion to knees and if any swelling or fever to notify the officeand will set up his labs and for now no change to medications Signatures Electronically signed by : León Sanchez M.D.; Dec 24 2017 5:37PM GRAVEL ROOFER (Author) documented in this encounter Plan of Treatment Upcoming Encounters Date Type Department Care Team (Late st Contact Info) Description 06/09/2024 4:20 PM GRAVEL ROOFER Office Visit [facility] Medical Group Family & Internal Medicine [address] [address] León Sanchez MD [address] [place] [address] documented as of this encounter Procedures Procedure Name Priority Date/Time Associated Diagnosis Comments HEMOGLOBIN, GLYCOSYLATED Routine 01/03/2018 3:24 PM CDT COMPREHENSIVE METABOLIC PANEL Routine 01/03/2018 3:24 PM CDT documented in this encounter Results * (ABNORMAL) COMPREHENSIVE METABOLIC PANEL (01/03/2018 3:24 PM CDT) SODIUM S/P/B 143 136 - 145 MMOL/L [facility] TO EPIC CONVERSION POTASSIUM S/P/B 4.3 3.5 - 5.1 MMOL/L [facility] TO EPIC CONVERSION CHLORIDE S/P/B 107 100 - 108 MMOL/L [facility] TO EPIC CONVERSION CO2 30.4 21 - 32 MMOL/L [facility] TO EPIC CONVERSION ANION GAP 9.9 8 - 20 MMOL/L [facility] TO EPIC CONVERSION BUN 17 7 - 18 MG/DL [facility] TO EPIC CONVERSION CREATININE S/P/B 0.91 0.7 - 1.3 MG/DL [facility] TO EPIC CONVERSION GFR ESTIMATE >90 >90 ML/MIN/1 .73 M2 [facility] TO EPIC CONVERSION EGFR AFR. AMER. >90 NOTE: eGFR is not calculated for patients <18 years of age. This is an estimated GFR (CKD EPI) and should not be used for calculating drug doses. >90 ML/MIN/1 .73 M2 [facility] TO EPIC CONVERSION BUN CREATININE RATIO 18.7 6 - 26 [facility] TO [facility]IC CONVERSION GLUCOSE 137(H) 70 - 99 MG/DL [facility] TO EPIC CONVERSION CALCIUM S/P/B 8.7 8.5 - 10.1 MG/DL [facility] TO EPIC CONVERSION BILIRUBIN TOTAL S/P/B 0.7 0.2 - 1.2 MG/DL [facility] TO EPIC CONVERSION AST 15 15 - 37 U/L [facility] TO EPIC CONVERSION ALT 18 16 - 60 U/L [facility] TO EPIC CONVERSION ALKALINE PHOSPHATASE S/P/B 62 50 - 136 U/L [facility] TO EPIC CONVERSION TOTAL PROTEIN S/P/B 6.3(L) 6.4 - 8.2 G/DL [facility] TO EPIC CONVERSION ALBUMIN S/P/B 3.7 3.4 - 5.0 G/DL [facility] TO EPIC CONVERSION A/G RATIO 1.4 1.0 - 2.0 RATIO [facility] TO EPIC CONVERSION 01/03/2018 3:24 PM CDT 01/03/2018 3:24 PM CDT Narrative [facility] TO EPIC CONVERSION - 01/03/2018 5:07 PM CDT Result Communication: Call patient with results us León Sanchez MD LABORATORY Final Resul t [facility] TO EPIC CONVERSION * HEMOGLOBIN, GLYCOSYLATED (01/03/2018 3:24 PM CDT) HGB A1C 5.2 <5.7 % [facility] T O EPIC CONVERSION Comment: Result Comment: ?? INCREASED RISK OF DIABETES <5.7% ?NON-DIABETES 5.7-6.4% INCREASED RISK FOR FUTURE DIABETES > OR = 6.5 CONSISTENT WITH DIABETES ?? STANDARDS OF MEDICAL CARE IN DIABETES-2010 DIABETES CARE, 33(SUPP 1): S1-S61,2010 01/03/2018 3:24 PM CDT 01/03/2018 3:24 PM CDT Narrative [facility] TO EPIC CONVERSION - 01/04/2018 7:55 AM CDT Result Communication: Call patient with results us León Sanchez MD LABORATORY Final Resul t [facility] TO EPIC CONVERSION documented in this encounter Visit Diagnoses Not on filedocumented in this encounter
--- OUTSIDE RECORDS SUMMARY | 2024-04-27 18:27 | XMS_ITS | Encounter Summary ---
Author Organization [facility] Address [address] [place] [address]. [place] [address] [place] [address] Care Team Providers Care Foot Roentgenologist Name Role Phone León Sanchez MD Primary Care Provider [phone] Encounter Details Date Type Department Care Team (Late st Contact Info) Description 10/22/2014 Abstract [facility] [address] [place] [address] Leana Johnson APNP Social History Tobacco Use [...] Sexual Orientation Straight 03/28/2018 4: 44 PM OVERLOCK COLLAR SETTER documented as of this encounter Plan of Treatment Upcoming Encounters Date Type Department Care Team (Late st Contact Info) Description 06/09/2024 4:20 PM OVERLOCK COLLAR SETTER Office Visit [facility] Medical Group Family & Internal Medicine [facility] [address] [place] [address] [place] [address] [place] [address] documented as of this encounter Visit Diagnoses Diagnosis Type 2 or unspecified type diabetes mellitus (CMS/HCC [facility]/HCC) documented in this encounter Care Teams Foot Roentgenologist Relationship Specialty Start [place] [address] [place] [address] PCP - General FAMILY PRACTICE 02/27/18 documented as of this encounter
--- OUTSIDE RECORDS SUMMARY | 2024-04-27 18:27 | XMS_ITS | Encounter Summary ---
Author Organization [facility] Address [facility]6 [facility] [place] [address] [place] [address] Care Team Providers Care Gamemaster Name Role Phone Unavailable Primary Care Provider Unavailabl e Encounter Details Date Type Department Care Team (Late st Contact Info) Description 06/05/2016 Abstract [facility] Family & Internal Medicine [address] [address] [place] [address] [place], [place] [id number] Social History Tobacco Use Types Packs/Day Years Used Date Smoking Tobacco: Never Assessed Sex and Gender Information Value Date Recorded Sex Assigned at Not on file Legal Sex Male 6:22 PM CDT Gender Identity Not on file Sexual Orientation Straight 03/28/2018 4: 44 PM FACILITY ATTENDANT documented as of this encounter Plan of Treatment Upcoming Encounters Date Type Department Care Team (Late st Contact Info) Description 06/09/2024 4:20 PM FACILITY ATTENDANT Office Visit [facility] Family & Internal [address] [address] [place] [address] [place], [place] [address] documented as of this encounter Procedures Procedure Name Priority Date/Time Associated Diagnosis Comments HEMOGLOBIN, GLYCOSYLATED Routine 06/05/2016 10:07 AM FACILITY ATTENDANT documented in this encounter Results * (ABNORMAL) HEMOGLOBIN, GLYCOSYLATED (06/05/2016 10:07 AM FACILITY ATTENDANT) HGB A1C 9.0(A) 4.2 - 6.5 % HbA1C [facility] TO EPIC CONVERSION 06/05/2016 10:0 7 AM FACILITY ATTENDANT 06/05/2016 10:07 AM FACILITY ATTENDANT Narrative [facility] TO EPIC CONVERSION - 06/05/2016 10:07 AM FACILITY ATTENDANT Result Communication: Call patient with results us Leana SONG LABORATORY Final Result [facility] TO EPIC CONVERSION documented in this encounter Visit Diagnoses Not on filedocumented in this encounter
--- OUTSIDE RECORDS SUMMARY | 2024-04-27 18:27 | XMS_ITS | Encounter Summary ---
Author Organization [facility] Address On license of [facility] [place] [address] [place] [address] Care Team Providers Care Market Survey Representative Name Role Phone Unavailable Primary Care Provider Unavailabl e Encounter Details Date Type Department Care Team (Late st Contact Info) Description 11/06/2014 Abstract [facility] Medical Group Family & Internal Medicine [facility] [address] [place] [address] [place] [address] [place], [place] [id number] Social History Tobacco Use Types Packs/Day Years Used Date Smoking Tobacco: Never Assessed Sex and Gender Information Value Date Recorded Sex Assigned at Not on file Legal Sex Male 6:22 PM CDT Gender Identity Not on file Sexual Orientation Straight 03/28/2018 4: 44 PM CLICKER OPERATOR documented as of this encounter Progress Notes * León Sanchez MD - 11/06/2014 2:00 PM CDT Chief Complaint Pt here for left knee injection. History of Present Illness Knee Pain: Sonny Singleton presents with complaints [...] Musculoskeletal: no limb swelling. Active Problems 1. Diabetes mellitus (250.00) (E11.9) 2. Dyslipidemia (272.4) (E78.5) 3. Hypertension (401.9) (I10) 4. Hypogonadism, testicular (257.2) (E29.1) 5. Right knee pain (719.46) (M25.561) 6. Type 2 diabetes mellitus (250.00) (E11.9) Past Medical History 1. History of Ankle injury (959.7) (S99.919A) 2. History of Arthritis, multiple joint involvement (716.99) (M12.9) 3. History of Bilateral knee pain (719.46) (M25.561,M25.562) 4. History of Hay fever (477.9) (J30.1) 5. History of acute bronchitis (V12.69) (Z87.09) 6. History of acute sinusitis (V12.69) (Z87.09) 7. History of acute sinusitis (V12.69) (Z87.09) 8. History of atopic dermatitis (V13.3) (Z87.2) 9. History of chronic sinusitis (V12.69) (Z87.09) 10. History of Osteoarthritis of knee (715.96) (M17.9) Surgical History 1. History of Abdominal Surgery [...] Social History ?? Current smokeless tobacco user ? Never a smoker ?? Never Drank Alcohol Current Meds 1. Invokana 300 MG Oral Tablet; Take 1 tablet daily; Therapy: 18Sep2014 to (Evaluate:20Apr2015) Requested for: 83Ukv8682; Last Rx:[id number] Ordered 2. Lisinopril 10 MG Oral Tablet; TAKE ONE TABLET BY MOUTH EVERY DAY FOR BLOOD PRESSURE; Therapy: 97Ijg8407 to (Evaluate:06Pwg0001) Requested for: 52Nsu3589; Last Rx:[id number] Ordered 3. MetFORMIN HCl - 500 MG Oral Tablet; TAKE TWO TABLETS BY MOUTH TWICE DAILY; Therapy: 29Jan2012 to (Evaluate:38Prf3443) Requested for: 43Rtn3180; Last Rx:[id number] Ordered Allergies 1. Codeine Sulfate TABS 2. Darvocet-N 100 TABS Physical Exam Constitutional General appearance: No acute distress, well appearing and well nourished. Eyes Conjunctiva and lids: No swelling, erythema, or discharge. Pupils and irises: Equal, round and reactive to light. Pulmonary Auscultation of lungs: Clear to auscultation. Cardiovascular Auscultation of heart: Normal rate and rhythm, normal S1 and S2, without murmurs. Examination of extremities for edema and/or varicosities: Normal. Musculoskeletal Gait and station: Normal. Digits and nails: Normal without clubbing or cyanosis. Inspection/palpation of joints, bones, and muscles: Abnormal. Left knee no gross deformity no erythema no effusion no calor. Skin Skin and subcutaneous tissue: Normal without rashes or lesions. Neurologic Cranial nerves: Cranial nerves 2-12 intact. Reflexes: 2+ and symmetric. Sensation: No sensory loss. Psychiatric Orientation to person, place and time: Normal. Mood and affect: Normal. Procedure Using sterile procedure with betadine after giving him the risk and benefit and signed consent injected the left knee with 1% lidocaine without epi and kenalog pt tolerated the procedure well Assessment 1. Left knee pain (719.46) (M25.562) Plan Left knee pain 1. Kenalog 40 MG/ML Injection Suspension (Triamcinolone Acetonide) Rx By: León Sanchez; For: Left knee pain; Dose of 1 ML; Intra-articular; MICHEL = N; Administered by: Ashlee Jennings: 11/06/2014 1:42:00 PM; Last Updated By: Ashlee Jennings; 11/06/2014 1:42:34 PM Formulary Override Reason: No Formulary Equivalent Exists 1) Knee pain: he has had some relief after the right knee injection so I am going to go ahead and give him one in the left and he was told to rest and ice it up as much as possible today follow up in three months sooner if need by Signatures Electronically signed by : León Sanchez M.D.; Nov 29 2014 9:18PM CLICKER OPERATOR (Author) documented in this encounter Plan of Treatment Upcoming Encounters Date Type Department Care Team (Late st Contact Info) Description 06/09/2024 4:20 PM CLICKER OPERATOR Office Visit [facility] Medical Group Family & Internal Medicine [facility] [address] [place] [address] León Sanchez [place] [id number] [place] [address] documented as of this encounter Visit Diagnoses Not on filedocumented in this encounter
--- OUTSIDE RECORDS SUMMARY | 2024-04-27 18:27 | XMS_ITS | Encounter Summary ---
Author Organization [facility] Address [address] [place] [address]. [place] [address] [place] [address] Care Team Providers Care Press Machine Feeder Name Role Phone Unavailable Primary Care Provider Unavailabl e Encounter Details Date Type Department Care Team (Late st Contact Info) Description 04/14/2014 Abstract [facility] Medical Group Family & Internal Medicine [facility] [address] [place] [address] [place] [address] [place], [place] [id number] Social History Tobacco Use Types Packs/Day Years Used Date Smoking Tobacco: Never Assessed Sex and Gender Information Value Date Recorded Sex Assigned at Not on file Legal Sex Male 6:22 PM CDT Gender Identity Not on file Sexual Orientation Straight 03/28/2018 4: 44 PM ORACLE BPM DEVELOPER documented as of this encounter Last Filed Vital Signs Vital Sign Reading Time Taken Comments Blood Pressure 118/82 04/14/2014 3:55 PM ORACLE BPM DEVELOPER Pulse 87 04/14/2014 3:55 PM ORACLE BPM DEVELOPER Temperature - - Respiratory Rate - - Oxygen Saturation - - Inhaled Oxygen Concentration - - Weight 79.8 kg (176 lb) 04/14/2014 3:55 PM ORACLE BPM DEVELOPER Height 175.3 cm (5' 9 ) 04/14/2014 3:55 PM ORACLE BPM DEVELOPER Body Mass Index 25.99 04/14/2014 3:55 PM ORACLE BPM DEVELOPER documented in this encounter Progress Notes * NOHEMI Thurston - 04/14/2014 4:00 PM CST Reason For Visit Reason For Visit: Acute Visit Chief Complaint pt c/o cough, drainage started a couple months ago. History of Present Illness The patient is being seen for an initial evaluation of sinusitis. The sinusitis involves all of theparanasal sinuses. The sinusitis is classified as acute. The patient is currently experiencing symptoms. The patient presents with complaints of gradual onset of constant episodes of moderate facial pressure. Episodes started about 5 days ago. Symptoms are worsening. Previous Evaluation: Pt has been treated by ENT and Travel Attendants for recurrent symptoms, where he was offered treatment options which he refused at the time. . headache nasal congestion postnasal drainage Associated symptoms: . No associated symptoms are reported. The patient is not currently being treated for this problem. Review of Systems See HPI for pertinent positives. Constitutional: feeling poorly. Cardiovascular: Normal. Respiratory: cough. Gastrointestinal: Normal. Genitourinary: Normal. Integumentary: Normal. Musculoskeletal: joint pain. Neurological: Normal. Psychiatric: Normal. Active Problems 1. Arthritis, multiple joint involvement (716.99) (M12.9) 2. Diabetes mellitus (250.00) (E11.9) 3. Dyslipidemia (272.4) (E78.5) 4. Hypertension (401.9) (I10) 5. Hypogonadism, testicular (257.2) (E29.1) 6. Type 2 diabetes mellitus (250.00) (E11.9) Past Medical History 1. History of Acute sinusitis (461.9) (J01.90) 2. History of Ankle injury (959.7) (S99.919A) 3. History of Hay fever (477.9) (J30.1) 4. History of acute sinusitis (V12.69) (Z87.09) 5. History of atopic dermatitis (V13.3) (Z87.2) 6. History of chronic sinusitis (V12.69) (Z87.09) 7. History of Osteoarthritis of knee (715.96) (M17.9) [...] of malignant neoplasm (V16.9) (Z80.9) Social History ? Never a smoker ?? Never Drank Alcohol Current Meds 1. Glimepiride 4 MG Oral Tablet; TAKE 1 TABLET TWICE DAILY; Therapy: 98Ofo8255 to (Evaluate:14Jan2014) Requested for: 76Kqr6959; Last Rx:[id number] Ordered Rx By: Leana Johnson; Dispense: 30 Days ; #:60 Tablet; Refill: 2; For: Diabetes mellitus; MICHEL = N;Verified Transmission to [facility] 435; Last Updated By: [employer]; 10/16/2013 12:24:07 PM 2. Lisinopril 10 MG Oral Tablet; TAKE ONE TABLET BY MOUTH ONCE DAILY FOR BLOOD PRESSURE; Therapy: 49Zwu7463 to (Evaluate:90Uzn7995) Requested for: 75Gwf6667; Last Rx:[id number] Ordered Rx By: Leana Johnson; Dispense: 30 Days ; #:30 Tablet; Refill: 3; For: Hypertension; MICHEL = N; Verified Transmission to [facility] 435; Last Updated By: [employer]; 12/08/2013 7:02:19 AM 3. MetFORMIN HCl - 500 MG Oral Tablet; TAKE 2 TABLETS TWICE DAILY; Therapy: 32Sgx5115 to (Evaluate:14Jan2014) Requested for: 01Mvt7053; Last Rx:[id number] Ordered Rx By: Leana Johnson; Dispense: 30 Days ; #:120 Tablet; Refill: 2; For: Diabetes mellitus; MICHEL = N; Verified Transmission to [facility]; Last Updated By: [employer]; 10/16/2013 12:24:06 PM Allergies 1. Codeine Sulfate TABS Recorded By: Deepthi Hernandez; 11/29/2011 4:45:28 PM 2. Darvocet-N 100 TABS Recorded By: Deepthi Hernandez; 11/29/2011 4:45:28 PM Vitals Vital Signs [Data Includes: Current Encounter] Recorded by : Ivone Stokes at 55Iek4521 03:55PM Temperature 98.2 F Heart Rate 87 Respiration 16 Systolic 118 Diastolic 82 O2 Saturation 98 Height 5 ft 9 in Weight 176 lb BMI Calculated 25.99 BSA Calculated 1.96 Physical Exam Constitutional General appearance: Abnormal. Chronically ill and uncomfortable. Ears, Nose, Mouth, and Throat External inspection of ears and nose: Normal. Otoscopic examination: Tympanic membrane translucent with normal light reflex. Canals patent without erythema. Oropharynx: Normal with no erythema, edema, exudate or lesions. Pulmonary Respiratory effort: No increased work of breathing or signs of respiratory distress. Respiratory Findings: wet cough. Auscultation of lungs: Abnormal. Auscultation of the lungs revealed decreased breath sounds diffusely. Cardiovascular Auscultation of heart: Normal rate and rhythm, normal S1 and S2, without murmurs. Lymphatic Palpation of lymph nodes in neck: No lymphadenopathy. Musculoskeletal Gait and station: Abnormal. Limping noted 2/2 continued reports of right knee pain. Psychiatric Orientation to person, place and time: Normal. Mood and affect: Normal. Assessment 1. Acute bronchitis (466.0) (J20.9) 2. Arthritis, multiple joint involvement (716.99) (M12.9) 3. Left knee pain (719.46) (M25.562) Plan Acute bronchitis 1. Start: Amoxicillin-Pot Clavulanate 875-125 MG Oral Tablet; TAKE 1 TABLET EVERY 12 HOURS DAILY Rx By: Leana Johnson; Dispense: 10 Days ; #:20 Tablet; Refill: 0; For: Acute bronchitis; MICHEL = N; Verified Transmission to [facility] 435; Last Updated By: Corinne Morgan; 04/14/2014 5:21:15 PM Arthritis, multiple joint involvement, Left knee pain 2. Orthopedic Referral Outpatient Pt with Hx of chronic knee pain has been seen and evaluated previously would like a second opinion Status: Need Information - Financial Authorization Requested for: [id number] Ordered; For: Arthritis, multiple joint involvement, Left knee pain; Ordered By: Leana Johnson Performed: Due: 28Apr2014 Discussion/Summary Acute Sinusitis- Augmentin ordered with instructions for pt to return to consult for further treatment options as they discussed with him previously. Ortho consult placed for second opinion on chronic pain to right knee. HgA1c to be drawn after 04/23/2014 Signatures Electronically signed by : Leana Johnson NP; Apr 14 2014 5:34PM ORACLE BPM DEVELOPER (Author) documented in this encounter Plan of Treatment Upcoming Encounters Date Type Department Care Team (Late st Contact Info) Description 06/09/2024 4:20 PM ORACLE BPM DEVELOPER Office Visit [facility] Medical Group Family & Internal Medicine [facility] [address] [place] [address] León Sanchez [place] [id number] [place] [address] documented as of this encounter Visit Diagnoses Not on filedocumented in this encounter
--- OUTSIDE RECORDS SUMMARY | 2024-04-27 18:27 | XMS_ITS | Encounter Summary ---
Author Organization [facility] Address [address] [place] [address]. [place] [address] [place] [address] Care Team Providers Care Press Box Custodian Name Role Phone León Sanchez MD Primary Care Provider [phone] Encounter Details Date Type Department Care Team (Late st Contact Info) Description 11/30/2014 Abstract [facility] [address] [place] [address] Leana Johnson APNP Social History [...] Sexual Orientation Straight 03/28/2018 4: 44 PM DIVISIONAL HUMAN RESOURCES DIRECTOR documented as of this encounter Plan of Treatment Upcoming Encounters Date Type Department Care Team (Late st Contact Info) Description 06/09/2024 4:20 PM DIVISIONAL HUMAN RESOURCES DIRECTOR [facility] Family [facility] Internal Medicine [facility] [address] [place] [address] [place] [address] [place] [address] documented as of this encounter Visit Diagnoses Diagnosis Pain in soft tissues of limb Pain in limb documented in this encounter Care Teams Press Box Custodian Relationship Specialty Start [place] [address] [place] [address] PCP - General FAMILY PRACTICE 02/27/18 documented as of this encounter
--- OUTSIDE RECORDS SUMMARY | 2024-04-27 18:27 | XMS_ITS | Encounter Summary ---
Author Organization [facility] Address [facility]ly [facility] [place] [address] [place] [address] Care Team Providers Care Poultry Husbandry Worker Name Role Phone Unavailable Primary Care Provider Unavailabl e Encounter Details Date Type Department Care Team (Late st Contact Info) Description 09/10/[address] [facility] Medical [facility] Family & Internal Medicine [facility] [address] [place] [address] [place] [address] [place] [address] Social History Tobacco Use Types Packs/Day Years Used Date Smoking Tobacco: Never Assessed Sex and Gender Information Value Date Recorded Sex Assigned at Not on file Legal Sex Male 6:22 PM CDT Gender Identity Not on file Sexual Orientation Straight 03/28/2018 4: 44 PM ROLLER MAKER documented as of this encounter Last Filed Vital Signs Vital Sign Reading Time Taken Comments Blood Pressure 124/78 09/10/2014 2:06 PM CDT Pulse 103 09/10/2014 2:06 PM CDT Temperature - - Respiratory Rate - - Oxygen Saturation - - Inhaled Oxygen Concentration - - Weight 73 kg (161 lb) 09/10/2014 2:06 PM CDT Height 175.3 cm (5' 9 ) 09/10/2014 2:06 PM CDT Body Mass Index 23.78 09/10/2014 2:06 PM CDT documented in this encounter Progress Notes * NOHEMI Thurston - 09/10/2014 2:00 PM CDT Chief Complaint pt c/o hip, knee and ankle pain and aches, started 10-12 years ago progressively worse in the last 10 days. History of Present Illness Sonny Singleton presents with complaints of gradual onset of intermittent episodes of moderate bilateral knee pain, described as dull and aching, radiating to the bilateral hip. On a scale of 1 to 10, the patient rates the pain as 7. Episodes started about 3 years ago. He is currently experiencing knee pain. Symptoms are improved by rest and non-opioid analgesics. Symptoms are made worse by weight b earing. Symptoms are worsening. Previous Evaluation: Pt has been present for several years, worsening in severity recently. He has been by Dr Henriquez and was supposed to have some procedure but he has never heard from them. Associated symptoms include stiffness, but no swelling, no warmth and no redness. Review of Systems See HPI for pertinent positives. Constitutional: Normal. ENT: normal. Cardiovascular: Normal. Respiratory: Normal. Gastrointestinal: Normal. Genitourinary: Normal. Integumentary: Normal. Musculoskeletal: joint pain. Neurological: Normal. Psychiatric: Normal. Active Problems 1. Diabetes mellitus (250.00) (E11.9) 2. Dyslipidemia (272.4) (E78.5) 3. Hypertension (401.9) (I10) 4. Hypogonadism, testicular (257.2) (E29.1) 5. Type 2 diabetes mellitus (250.00) (E11.9) Past Medical History 1. History of Ankle injury (959.7) (S99.919A) 2. History of Arthritis, multiple joint involvement (716.99) (M12.9) 3. History of Hay fever (477.9) (J30.1) 4. History of acute bronchitis (V12.69) (Z87.09) 5. History of acute sinusitis (V12.69) (Z87.09) 6. History of acute sinusitis (V12.69) (Z87.09) 7. History of atopic dermatitis (V13.3) (Z87.2) 8. History of chronic sinusitis (V12.69) (Z87.09) 9. History of Osteoarthritis of knee (715.96) (M17.9) [...] Never Drank Alcohol Current Meds 1. Invokana 100 MG Oral Tablet; Take 2 tablet daily, 200 mg total; Therapy: 88Fss2097 to (Evaluate:19Uhv8225) Requested for: 17Fza5027; Last Rx:[id number] Ordered Rx By: Leana Johnson; Dispense: 30 Days ; #:60 Tablet; Refill: 1; For: Type 2 diabetes mellitus; MICHEL = N; Verified Transmission to [facility] 435; Last Updated By: [employer]; 08/31/2014 2:13:08 PM 2. Lisinopril 10 MG Oral Tablet; TAKE ONE TABLET BY MOUTH EVERY DAY FOR BLOOD PRESSURE; Therapy: 38Yuo1728 to (Evaluate:64Zzs5148) Requested for: 13Fpa2061; Last Rx:[id number] Ordered Rx By: Leana Johnson; Dispense: 30 Days ; #:30 TAB; Refill: 2; For: Hypertension; MICHEL = N; Verified Transmission to [facility]; Last Updated By: [employer]; 08/10/2014 3:58:38 PM 3. MetFORMIN HCl - 500 MG Oral Tablet; TAKE TWO TABLETS BY MOUTH TWICE DAILY; Therapy: 17Use2283 to (Evaluate:96Vea4026) Requested for: 58Zmd7943; Last Rx:[id number] Ordered Rx By: Leana Johnson; Dispense: 30 Days ; #:120 TAB; Refill: 2; For: Diabetes mellitus; MICHEL = N; Verified Transmission to [facility]; Last Updated By: [employer]; 09/10/2014 8:30:58 AM Allergies 1. Codeine Sulfate TABS Recorded By: Deepthi Hernandez; 11/29/2011 4:45:28 PM 2. Darvocet-N 100 TABS Recorded By: Deepthi Hernandez; 11/29/2011 4:45:28 PM Vitals Recorded: 88Enw7939 02:06PM Temperature 98.2 F Heart Rate 103 Respiration 16 Systolic 124 Diastolic 78 O2 Saturation 97 Height 5 ft 9 in Weight 161 lb BMI Calculated 23.78 BSA Calculated 1.88 Physical Exam Constitutional General appearance: No acute distress, well appearing and well nourished. Musculoskeletal Gait and station: Normal. Digits and nails: Normal without clubbing or cyanosis. Inspection/palpation of joints, bones, and muscles: Normal. Skin Skin and subcutaneous tissue: Normal without rashes or lesions. Psychiatric Orientation to person, place and time: Normal. Mood and affect: Normal. Assessment 1. Bilateral knee pain (719.46) (M25.561,M25.562) Discussion/Summary Bilateral knee pain- Discussed contacting Dr Henriquez for revisiting procedure discussed at his lastvisit. We will contact his office and try to get things started again. FU PRN Signatures Electronically signed by : Leana Johnson NP; Sep 10 2014 5:25PM ROLLER MAKER (Author) documented in this encounter Plan of Treatment Upcoming Encounters Date Type Department Care Team (Late st Contact Info) Description 06/09/2024 4:20 PM ROLLER MAKER Office Visit [facility] Medical [facility] Family & Internal Medicine [facility] [address] [place] [address] León Sanchez [place] [id number] [place] [id number] documented as of this encounter Visit Diagnoses Not on filedocumented in this encounter
--- OUTSIDE RECORDS SUMMARY | 2024-04-27 18:27 | XMS_ITS | Encounter Summary ---
Author Organization [facility] Address [address] [place] [address]. [place] [address] [place] [address] Care Team Providers Care Convenience Recycle Center Tech Name Role Phone León Sanchez MD Primary Care Provider [phone] Encounter Details Date Type Department Care Team (Late st Contact Info) Description 02/25/2015 Abstract [facility] [address] [place], [place] [id number] Leana Johnson APNP Social History Tobacco Use [...] Orientation Straight 03/28/2018 4: 44 PM MANAGER LEAN documented as of this encounter Plan of Treatment Upcoming Encounters Date Type Department Care Team (Late st Contact Info) Description 06/09/2024 4:20 PM MANAGER LEAN Office Visit [facility] Medical Group Family & Internal Medicine [facility] [address] [place] [address] [place] [address] [place] [address] documented as of this encounter Visit Diagnoses Diagnosis Type 2 diabetes mellitus without complications (CMS/HCC [facility]/HCC) Type II or unspecified type diabetes mellitus without mention of complication, not stated as uncontrolled documented in this encounter Care Teams Convenience Recycle Center Tech Relationship Specialty Start [place] [address] [place] [address] PCP - General FAMILY PRACTICE 02/27/18 documented as of this encounter
--- OUTSIDE RECORDS SUMMARY | 2024-04-27 18:27 | XMS_ITS | Encounter Summary ---
Author Organization [facility] Address [address] [place] [address]. 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 Ivone Stokes - 23 Jan 2014 12:01 PM TASK EDITED lvm for pt to return call. Ivone Stokes - 23 Jan 2014 12:01 PM TASK IN PROGRESS Ivone Stokes - 26 Jan 2014 9:43 AM TASK EDITED pt informed of lab results and need to repeat HbA1c in 3 months. pt vocalized understanding. Signatures Electronically signed by : Ivone Stokes, ; Jan 26 2014 9:44AM MANAGER HVAC (Author) documented in this encounter Plan of Treatment Upcoming Encounters Date Type Department Care Team (Late st Contact Info) Description 06/09/2024 4:20 PM MANAGER HVAC Office Visit [facility] Medical Group Family & Internal Medicine [facility] [address] [place] [address] León Sanchez [place] [id number] [place] [address] documented as of this encounter Visit Diagnoses Not on filedocumented in this encounter
--- OUTSIDE RECORDS SUMMARY | 2024-04-27 18:27 | XMS_ITS | Encounter Summary ---
Author Organization [facility] Address [address] [place] [address]. [place] [address] [place] [address] Care Team Providers Care Clinical Specialist Vascular Name Role Phone León Sanchez MD Primary Care Provider [phone]- [phone] Encounter Details Date Type Department Care Team (Late Contact Info) Description 02/10/[address] 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 documented as of this encounter Plan of Treatment Upcoming Encounters Date Type Department Care Team (Late st Contact Info) Description 06/09/2024 4:20 PM SCREEN CUTTER AND TRIMMER Office Visit [facility] Family & Internal Medicine [facility] [address] [place] [address] [place] [address] [place] [address] documented as of this encounter Procedures Procedure Name Priority Date/Time Associated Diagnosis Comments POCT CREATININE Routine 02/10/2017 7:12 AM CDT documented in this encounter Results * POCT CREATININE (02/10/2017 7:12 AM CDT) CREATININE WHOLE BLOOD 0.6 0.6 - 1.2 MG/DL 02/10/2017 1:01 PM CDT [facility] WHOLE BLOOD SPECIMEN / Unknown 02/10/2017 7:12 AM CDT 02/10/2017 1:00 PM CDT us Generic Conversion Md TORRES POINT OF CARE TEST KAITY ORTIZ Final Result [facility] [address] [place] [address], [place] [phone] documented in this encounter Visit Diagnoses Diagnosis Localized swelling, mass or lump of neck Swelling, mass, or lump in head and neck documented in this encounter Care Teams Clinical Specialist Vascular Relationship Specialty Start [place] [address] [place] [address] PCP - General FAMILY PRACTICE 02/27/18 documented as of this encounter
--- OUTSIDE RECORDS SUMMARY | 2024-04-27 18:27 | XMS_ITS | Encounter Summary ---
Author Organization [facility] Address [address] [place] [address]. [place] [address] [place] [address] Care Team Providers Care Passenger Car Inspector Name Role Phone Unavailable Primary Care Provider Unavailabl e Encounter Details Date Type Department Care Team (Late st Contact Info) Description 07/24/2014 Abstract [facility] Family & Internal Medicine [facility] [address] [place] [address] [place] [address] [place], [place] [id number] Social History Tobacco Use Types Packs/Day Years Used Date Smoking Tobacco: Never Assessed Sex and Gender Information Value Date Recorded Sex Assigned at Not on file Legal Sex Male 6:22 PM CDT Gender Identity Not on file Sexual Orientation Straight 03/28/2018 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 pt states he has felt great these last 3 weeks. History of Present Illness The patient is being seen for Diabetes Mellitus 2. The HbA1c was 9.0% performed on 07/2014. See Medication List for current medication(s). By report, there is fair compliance with treatment, fair tolerance of treatment and fair symptom control. Current pertinent lifestyle factors include disordered eating and tobacco use. Review of Systems See HPI for pertinent positives. Constitutional: Normal. ENT: normal. Cardiovascular: Normal. Respiratory: Normal. Gastrointestinal: Normal. Genitourinary: Normal. Integumentary: Normal. Musculoskeletal: Normal. Neurological: Normal. Psychiatric: Normal. Active Problems 1. [...] chronic sinusitis (V12.69) (Z87.09) 9. History of Left knee pain (719.46) (M25.562) 10. History of Osteoarthritis of knee (715.96) [...] 1. Invokana 100 MG Oral Tablet; Take 1 tablet daily; Therapy: [id number] to (Evaluate:[id number]) Requested for: 97Wkh7932; Last Rx:[id number] Ordered 2. Lisinopril 10 MG Oral Tablet; TAKE ONE TABLET BY MOUTH ONCE DAILY FOR BLOOD PRESSURE; Therapy: 59Nma1007 to (Evaluate:29Jul2014) Requested for: 30Apr2014; Last Rx:[id number] Ordered 3. MetFORMIN HCl - 500 MG Oral Tablet; TAKE 2 TABLETS TWICE DAILY; Therapy: 29Jan2012 to (Evaluate:14Jan2014) Requested for: 70Alr6231; Last Rx:[id number] Ordered Allergies 1. Codeine Sulfate TABS 2. Darvocet-N 100 TABS Vitals Recorded: [id number] 03:23PM Temperature 98.1 F Heart Rate 98 Respiration 16 Systolic 122 Diastolic 76 O2 Saturation 98 Height 5 ft 9 in Weight 166 lb BMI Calculated 24.51 BSA Calculated 1.91 Physical Exam Constitutional General appearance: No acute distress, well appearing and well nourished. Pulmonary Respiratory effort: No increased work of breathing or signs of respiratory distress. Auscultation of lungs: Clear to auscultation. Cardiovascular Auscultation of heart: Normal rate and rhythm, normal S1 and S2, without murmurs. Musculoskeletal Gait and station: Normal. Psychiatric Orientation to person, place and time: Normal. Mood and affect: Normal. States he feels the best he has felt in months. Results/Data Hemoglobin A1C ( HA1C ) 20Jul2014 01:59PM Leana Johnson Test Name Result Flag Reference Hemoglobin A1c 9.0 % H <5.7 INCREASED RISK OF DIABETES <5.7% NON-DIABETES 5.7-6.4% INCREASED RISK FOR FUTURE DIABETES > OR = 6.5 CONSISTENT WITH DIABETES STANDARDS OF MEDICAL CARE IN DIABETES-2010 DIABETES CARE, 33(SUPP 1): S1-S61,2010 Assessment 1. Diabetes mellitus (250.00) (E11.9) Plan Type 2 diabetes mellitus 1. Invokana 100 MG Oral Tablet; Take 2 tablet daily, 200 mg total Rx By: Leana Johnson; Dispense: 20 Days ; #:40 Tablet; Refill: 0; For: Type 2 diabetes mellitus; MICHEL = N; Dispense Sample; Last Updated By: Ivone Stokes; 07/24/2014 4:06:14 PM Discussion/Summary DM- Increased Invokana to 200mg daily. Given free samples for trial dosing. REinforced need for dietary modification and avoidance of simple sugars. Admitted to falling off the wagon, states he is back on now though. FU in 3 months. Repeat HgAic prior to visit. Signatures Electronically signed by : Leana Johnson NP; Jul 24 2014 4:11PM TRAVEL SPECIALIST (Author) documented in this encounter Plan of Treatment Upcoming Encounters Date Type Department Care Team (Late st Contact Info) Description 06/09/2024 4:20 PM TRAVEL SPECIALIST Office Visit [facility] Family & Internal Medicine [address] [address] León Sanchez MD [address] [place] [address] documented as of this encounter Visit Diagnoses Not on filedocumented in this encounter
--- OUTSIDE RECORDS SUMMARY | 2024-04-27 18:27 | XMS_ITS | Encounter Summary ---
Author Organization [facility] Address [address] [place] [address]. [place] [address] [place] [address] Care Team Providers Care Hearing Screener Name Role Phone Unavailable Primary Care Provider Unavailabl e Encounter Details Date Type Department Care Team (Late st Contact Info) Description 04/20/2015 Abstract [facility] Family & Internal Medicine [facility] [address] [place] [address] [place] [address] [place], [place] [id number] Social History Tobacco Use Types Packs/Day Years Used Date Smoking Tobacco: Never Assessed Sex and Gender Information Value Date Recorded Sex Assigned at Not on file Legal Sex Male 6:22 PM CDT Gender Identity Not on file Sexual Orientation Straight 03/28/2018 4: 44 PM 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 HAULIER documented as of this encounter Last Filed Vital Signs Vital Sign Reading Time Taken Comments Blood Pressure 132/72 04/20/2015 3:47 PM LIVESTOCK HAULIER Pulse 88 04/20/2015 3:47 PM LIVESTOCK HAULIER Temperature - - Respiratory Rate - - Oxygen Saturation - - Inhaled Oxygen Concentration - - Weight 75.8 kg (167 lb 3.2 oz) 04/20/2015 3:47 P M LIVESTOCK HAULIER Height 175.3 cm (5' 9 ) 04/20/2015 3:47 PM LIVESTOCK HAULIER Body Mass Index 24.69 04/20/2015 3:47 PM LIVESTOCK HAULIER documented in this encounter Progress Notes * NOHEMI Thurston - 04/20/2015 4:00 PM CST Reason For Visit Reason For Visit: Acute Visit, Chronic Recheck Visit Chief Complaint pt c/o sinus and allergy issues started a week ago. c/o sinus pain in forehead, drainage down throat into chest, cough. History of Present Illness Sinusitis (Brief): The patient presents with complaints of gradual onset of constant episodes of moderate facial pressure. Episodes started about 4 days ago. He is currently experiencing facial pressure. Symptoms are worsening. The patient is being seen for an initial evaluation of sinusitis. The sinusitis involves the frontal sinuses. The sinusitis is classified as acute. The patient is currently experiencing symptoms. The patient presents with complaints of gradual onset of constant episodes of moderate facial pressure. Episodes started about 4 days ago. He is currently experiencing facial pressure. Symptoms are worsening. headache Current treatment includes oral antihistamine and oral decongestant. By report, there is fair compliance with treatment, good tolerance of treatment and poor symptom control. Review of Systems See HPI for pertinent positives. Constitutional: feeling poorly and feeling tired. Cardiovascular: Normal. Respiratory: cough. Gastrointestinal: Normal. Genitourinary: [...] chronic sinusitis (V12.69) (Z87.09) 10. History of fracture of upper extremity (V15.51) (Z87.81) ?? left forearm 11. History of Left forearm pain (729.5) (M79.632) 12. History of Left knee pain (719.46) (M25.562) 13. History of Left knee pain (719.46) (M25.562) 14. History of Osteoarthritis of knee (715.36) (M17.9) 15. History of Right knee pain (719.46) (M25.561) [...] ?? Never Drank Alcohol Current Meds 1. Aspirin 81 MG Oral Tablet; TAKE 1 TABLET DAILY; Therapy: 30Nov2014 to (Evaluate:30Dec2014) Recorded Dispense: 30 Days ; #:30 Tablet; Refill: 0; MICHEL = N; Record; Last Updated By: Ivone Stokes; 11/30/2014 4:03:27 PM 2. Invokana 300 MG Oral Tablet; Take 1 tablet daily; Therapy: 18Sep2014 to (Evaluate:20Apr2015) Requested for: 20Phr2051; Last Rx:[id number] Ordered Rx By: Leana Johnson; Dispense: 30 Days ; #:30 Tablet; Refill: 5; For: Type 2 diabetes mellitus; MICHEL = N; Verified Transmission to [facility]; [place] to Pharmacy: [facility]; Last Updated By: Corinne Morgan; 10/22/2014 4:02:28 PM 3. Lisinopril 10 MG Oral Tablet; TAKE ONE TABLET BY MOUTH ONCE DAILY FOR BLOOD PRESSURE; Therapy: 50Pik4755 to (Evaluate:43Gra7947) Requested for: 24Nov2014; Last Rx:[id number] Ordered Rx By: Leana Johnson; Dispense: 30 Days ; #:30 TAB; Refill: 5; For: Hypertension; MICHEL = N; FailedTransmission to [facility]; Last Updated By: Medicast; 11/24/2014 5:08:50 PM 4. MetFORMIN HCl - 500 MG Oral Tablet; TAKE TWO TABLETS BY MOUTH TWICE DAILY; Therapy: 29Jan2012 to (Evaluate:48Goy2242) Requested for: 10Sep2014; Last Rx:[id number] Ordered Rx By: Leana Johnson; Dispense: 30 Days ; #:120 TAB; Refill: 2; For: Diabetes mellitus; MICHEL = N; Verified Transmission to [facility]; Last Updated By: Medicast; 09/10/2014 8:30:58 AM Allergies 1. Codeine Sulfate TABS Recorded By: Deepthi Hernandez; 11/29/2011 4:45:28 PM 2. Darvocet-N 100 TABS Recorded By: Deepthi Hernandez; 11/29/2011 4:45:28 PM Vitals Recorded: 20Apr2015 03:47PM Temperature 98.3 F Heart Rate 88 Respiration 16 Systolic 132 Diastolic 72 O2 Saturation 98 Height 5 ft 9 in Weight 167 lb 3.2 oz BMI Calculated 24.69 BSA Calculated 1.91 Physical Exam Constitutional General appearance: Abnormal. acutely ill and appears tired. Ears, Nose, Mouth, and Throat External inspection of ears and nose: Normal. Otoscopic examination: Tympanic membrane translucent with normal light reflex. Canals patent without erythema. Oropharynx: Abnormal. The posterior pharynx was erythematous. Pulmonary Respiratory effort: No increased work of breathing or signs of respiratory distress. Respiratory Findings: wet cough. Auscultation of lungs: Abnormal. rhonchi over both apices. Cardiovascular Auscultation of heart: Normal rate and rhythm, normal S1 and S2, without murmurs. Lymphatic Palpation of lymph nodes in neck: No lymphadenopathy. Musculoskeletal Gait and station: Normal. Psychiatric Orientation to person, place and time: Normal. Mood and affect: Normal. Assessment 1. Acute bronchitis with bronchospasm (466.0) (J20.9) Plan Acute bronchitis with bronchospasm 1. Azithromycin 250 MG Oral Tablet; TAKE 2 TABLETS ON DAY 1 THEN TAKE 1 TABLET A DAY FOR 4 DAYS Rx By: Leana Johnson; Dispense: 5 Days ; #:6 Tablet; Refill: 0; For: Acute bronchitis with bronchospasm; MICHEL = N; Verified Transmission to [facility]; Last Updated By: Medicast; 04/20/2015 4:08:42 PM 2. PredniSONE 20 MG Oral Tablet; TAKE 2 TABLET Daily Rx By: Leana Johnson; Dispense: 4 Days ; #:8 Tablet; Refill: 0; For: Acute bronchitis with bronchospasm; MICHEL = N; Verified Transmission to [facility]; Last Updated By: Medicast; 04/20/2015 4:08:43 PM Discussion/Summary Acute Bronchitis with bronchospasm- Discussed use of Abx therapy, and continued use of OTC medications for symptom control. Encouraged to increase oral fluid intake, rest and use of Tylenol/Ibuprofenfor fever or general discomfort. Reinforced avoidance of nicotine products. FU PRN Signatures Electronically signed by : Leana Johnson NP; Apr 22 2015 9:08AM LIVESTOCK HAULIER (Author) documented in this encounter Plan of Treatment Upcoming Encounters Date Type Department Care Team (Late st Contact Info) Description 06/09/2024 4:20 PM LIVESTOCK HAULIER Office Visit [facility] Family & Internal Medicine [address] [address] León Sanchez MD [address] [place] [address] documented as of this encounter Visit Diagnoses Not on filedocumented in this encounter
--- OUTSIDE RECORDS SUMMARY | 2024-04-27 18:27 | XMS_ITS | Encounter Summary ---
Author Organization [facility] Address [facility] [place] [address] [place] [address] Care Team Providers Care Flexographic Press Operator Name Role Phone Unavailable Primary Care Provider Unavailabl e Encounter Details Date Type Department Care Team (Latest Contact Info) Description 10/23/2014 Abstract [facility] Social History Tobacco Use Types Packs/Day Years Used Date Smoking Tobacco: Never Assessed Sex and Gender Information Value Date Recorded Sex Assigned at Not on file Legal Sex Male 6:22 PM CDT Gender Identity Not on file Sexual Orientation Straight 03/28/2018 4: 44 PM COMBUSTION ANALYST documented as of this encounter Progress Notes * Kareen Troy Md, MD - 10/23/2014 12:32 PM CDT Message Recorded as Task Date: 10/23/2014 12:33 PM, Created By: Leana Johnson Task Name: Call Patient with results Assigned To: Leana Johnson Regarding Patient: Sonny Singleton, Status: Active Comment: Leana Johnson - 23 Oct 2014 12:33 PM Patient Continue with plan as discussed in office Ivone Stokes - 23 Oct 2014 1:18 PM TASK EDITED pt informed of HbA1c results and vocalized understanding. Signatures Electronically signed by : Ivone Stokes, ; Oct 23 2014 1:18PM COMBUSTION ANALYST (Author) * NOHEMI Thurston - 10/23/2014 12:32 PM CDT Message Continue with plan as discussed in office Verified Results Hemoglobin A1C ( HA1C ) [id number] 06:23PM Leana Johnson Test Name Result Flag Reference Hemoglobin A1c 7.6 % H <5.7 INCREASED RISK OF DIABETES <5.7% NON-DIABETES 5.7-6.4% INCREASED RISK FOR FUTURE DIABETES > OR = 6.5 CONSISTENT WITH DIABETES STANDARDS OF MEDICAL CARE IN DIABETES-2009 DIABETES CARE, 33(SUPP 1): S1-S61,2009 documented in this encounter Plan of Treatment Upcoming Encounters Date Type Department Care Team (Late st Contact Info) Description 06/09/2024 4:20 PM COMBUSTION ANALYST Office Visit [facility] Family & Internal Medicine - [address] [address] León Sanchez MD [address] [place] [address] documented as of this encounter Visit Diagnoses Not on filedocumented in this encounter
--- OUTSIDE RECORDS SUMMARY | 2024-04-27 18:27 | XMS_ITS | Encounter Summary ---
Author Organization [facility] Address [address] [place] [address]. [place] [address] [place] [address] Care Team Providers Care Casting Machine Adjuster Name Role Phone León Sanchez MD Primary Care Provider [phone] Encounter Details Date Type Department Care Team (Late st Contact Info) Description 07/20/2014 Abstract [facility] [address] [place] [address] Leana Johnson APNP Social History [...] Orientation Straight 03/28/2018 4: [address] MACHINE RUNNER documented as of this encounter Plan of Treatment Upcoming Encounters Date Type Department Care Team (Late st Contact Info) Description 06/09/2024 4:[address] MACHINE RUNNER Office Visit [facility] Family & Internal Medicine [facility] [address] [place] [address] [place] [address] [place] [address] documented as of this encounter Visit Diagnoses Diagnosis Type 2 or unspecified type diabetes mellitus (CMS/HCC [facility]/HCC) documented in this encounter Care Teams Casting Machine Adjuster Relationship Specialty Start [place] [address] [place] [address] PCP - General FAMILY PRACTICE 02/27/18 documented as of this encounter
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
--- OUTSIDE RECORDS SUMMARY | 2024-04-27 18:27 | XMS_ITS | Encounter Summary ---
Author Organization [facility] Address [facility] [place] [address] [place] [address] Care Team Providers Care Station Repairer Name Role Phone Unavailable Primary Care Provider Unavailabl e Encounter Details Date Type Department Care Team (Late st Contact Info) Description 10/30/2014 Abstract [facility] Family & Internal Medicine [facility] [address] [place] [address] [place] [address] [place] [address] Social History Tobacco Use Types Packs/Day Years Used Date Smoking Tobacco: Never Assessed Sex and Gender Information Value Date Recorded Sex Assigned at Not on file Legal Sex Male 6:22 PM CDT Gender Identity Not on file Sexual Orientation Straight 03/28/2018 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 Invokana 300 MG Oral Tablet; Take 1 tablet daily; Therapy: 18Sep2014 to (Evaluate:20Apr2015) Requested for: 20Ohl7766; Last Rx:53Lyk2605 Ordered 2. Lisinopril 10 MG Oral Tablet; TAKE ONE TABLET BY MOUTH EVERY DAY FOR BLOOD PRESSURE; Therapy: 25Hyl7256 to (Evaluate:98Icg1342) Requested for: 92Yrx7754; Last Rx:85Ogl0222 Ordered 3. MetFORMIN HCl - 500 MG Oral Tablet; TAKE TWO TABLETS BY MOUTH TWICE DAILY; Therapy: 29Jan2012 to (Evaluate:19Cwx7438) Requested for: 20Kcp7441; Last Rx:[id number] Ordered Allergies 1. Codeine Sulfate TABS 2. Darvocet-N 100 TABS Vitals Recorded: 30Oct2014 02:58PM Temperature 97.4 F Heart Rate 78 Respiration 18 Systolic 130 Diastolic 76 O2 Saturation 98 Weight 168 lb 3.2 oz BMI Calculated 24.84 BSA Calculated 1.92 Procedure Procedure: Injection of the knee joint on the left Indication: osteoarthritis. Risk, benefits, alternatives, bleeding risk, infection risk and allergic reaction risk were discussed with the patient. Written consent was obtained prior to the procedure and is detailed in the patient's record. Prior to the start of the procedure a time out was taken and the identity of the patient was confirmed via name and date of with the patient. The correct site and the procedure to be performed were confirmed and the site marked as appropriate. The correct side was confirmed if applicable. The positioning of the patient was verified. The availability of the correct equipment wasverified. Preparation: betadine was used to prep the area. The area was then injected with 1 mL 1% lidocaine without epinephrine. Local anesthetic was administered using a 27-gauge needle. Procedure Note: Using sterile technique, the aspiration/injection needle was then directed from a lateral aspect. A 25-gauge and 1.5 inch was used to inject 1 mL of 1% Lidocaine and 1cc mL of 40mg/mLtriamcinolone. Post-Procedure: The patient tolerated the procedure well. Complications: None. Patient instructed to avoid strenuous activity for day(s). Follow-up in the office in 7 day(s). Assessment 1. Left knee pain (719.46) (M25.562) Plan 1) Knee pain: will inject the knee today with kenolog and lidocaine without epi and advised the pt to apply ice and rest for the next twenty four hours follow up in one week Signatures Electronically signed by : León Sanchez M.D.; Nov 04 2014 7:26PM TIME CYCLE OPERATOR (Author) documented in this encounter Plan of Treatment Upcoming Encounters Date Type Department Care Team (Late st Contact Info) Description 06/09/2024 4:20 PM TIME CYCLE OPERATOR Office Visit [facility] Family & Internal Medicine - [place] [id number] [place] [address] León [place] [id number] [place] [address] documented as of this encounter Visit Diagnoses Not on filedocumented in this encounter
--- OUTSIDE RECORDS SUMMARY | 2024-04-27 18:27 | XMS_ITS | Encounter Summary ---
Author Organization [facility] Address [facility] 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 HgA1c pending Verified Results Basic Metabolic Prof ( BMP ) 21Jan2014 03:19PM Leana Johnson Test Name Result Flag Reference Glucose 232 MG/DL H 70-105 Blood Urea Nitrogen (BUN) 9 MG/DL 8.4-24.7 Creatinine 0.8 MG/DL 0.72-1.25 Sodium (Na) 141 MMOL/L 136-145 Potassium (K) 4.9 MMOL/L 3.5-5.1 Chloride (Cl) 103 MMOL/L 98-107 Carbon Dioxide (CO2) 30.0 MMOL/L H 22-29 Calcium 9.0 MG/DL 8.4-10.2 Anion Gap 12.9 MMOL/L 10.0-24.0 BUN Creatinine Ratio 11.3 6.0-26.0 Osmolality Calc 287 MOSM/KG 271-290 Glomerular Filt Rate Calc (Report) >60 >60 GFR Reference Range: Kidney Failure - <15mL/min Chronic Kidney Disease - <60mL/min Normal Kidney Function - >60mL/min GFR calculation is not recommended for Patients less than 18 years or greater than 70 years as per the national Kidney Foundation. If the patient is -[place], multiply results by 1.21 Lipid W Direct LDL 21Jan2014 03:19PM Leana Johnson Test Name Result Flag Reference CHOLESTEROL 135 MG/DL <200 CHOL/HDL RATIO 5.00 INTERPRETATION OF RESULTS NHLBI RECOMMENDED RANGES CHOLESTEROL MG/DL LDL MG/DL DESIRABLE <200 <130 BORDERLINE 200-239 130-159 HIGH RISK >240 >160 REFERENCE VALUE FOR HDL CHOLESTEROL RISK LEVEL MALE MG/DL FEMALE MG/DL DECREASED >45 >55 AVERAGE 45 55 INCREASED <45 <55 HDL CHOLESTEROL 27 MG/DL L >45 LDL Cholesterol Direct 51 MG/DL TRIGLYCERIDE 313 MG/DL H <150 Rheumatoid Factor ( RA ) ( RF ) 21Jan2014 03:19PM Leana Johnson Test Name Result Flag Reference Rheumatoid Factor NEG NEG documented in this encounter Plan of Treatment Upcoming Encounters Date Type Department Care Team (Late st Contact Info) Description 06/09/2024 4:20 PM HYBRID TECHNOLOGIST Office Visit [facility] Family & Internal Medicine [facility] [address] [place] [address] [place] [address] [place] [address] documented as of this encounter Visit Diagnoses Not on filedocumented in this encounter
--- OUTSIDE RECORDS SUMMARY | 2024-04-27 18:27 | XMS_ITS | Encounter Summary ---
Author Organization [facility] Address [facility] [place] [address] [place] [address] Care Team Providers Care Health Policy Analyst Name Role Phone Unavailable Primary Care Provider Unavailabl e Encounter Details Date Type Department Care Team (Late st Contact Info) Description 01/20/2017 Abstract [facility] Family & Internal Medicine [facility] [address] [place] [address] [place] [address] [place] [address] Social History Tobacco Use Types Packs/Day Years Used Date Smoking Tobacco: Never Assessed Sex and Gender Information Value Date Recorded Sex Assigned at Not on file Legal Sex Male 6:22 PM CDT Gender Identity Not on file Sexual Orientation Straight 03/28/2018 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
--- OUTSIDE RECORDS SUMMARY | 2024-04-27 18:27 | XMS_ITS | Encounter Summary ---
Author Organization [facility] Address [facility] 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
--- OUTSIDE RECORDS SUMMARY | 2024-04-27 18:27 | XMS_ITS | Encounter Summary ---
Author Organization [facility] Address [address] [place] [address]. [place] [address] [place] [address] Care Team Providers Care Multimedia Author Name Role Phone Unavailable Primary Care Provider Unavailabl e Encounter Details Date Type Department Care Team (Late st Contact Info) Description 07/06/2015 Abstract [facility] [place] [facility] Family & Internal Medicine [facility] [address] [place] [address] [place] [address] [place] [address] Social History Tobacco Use Types Packs/Day Years Used Date Smoking Tobacco: Never Assessed Sex and Gender Information Value Date Recorded Sex Assigned at Not on file Legal Sex Male 6:22 PM CDT Gender Identity Not on file Sexual Orientation Straight 03/28/2018 4: 44 PM ORDER BUILDER documented as of this encounter Last Filed Vital Signs Vital Sign Reading Time Taken Comments Blood Pressure 104/62 07/06/2015 3:13 PM CDT Pulse 81 07/06/2015 3:13 PM CDT Temperature - - Respiratory Rate - - Oxygen Saturation - - Inhaled Oxygen Concentration - - Weight 74 kg (163 lb 3.2 oz) 07/06/2015 3:13 PM CDT Height 175.3 cm (5' 9 ) 07/06/2015 3:13 PM CDT Body Mass Index 24.1 07/06/2015 3:13 PM CDT documented in this encounter Progress Notes * NOHEMI Thurston - 07/06/2015 4:00 PM CDT Verified Results *A1C In Office 06Jul2015 03:29PM Leana Johnson Test Name Result Flag Reference A1C 8.7 A 4.2% - 6.5% Plan Diabetes mellitus ?? *A1C In Office; Status:Complete; Done: 06Jul2015 03:29PM ?? Hemoglobin A1C ( HA1C ); Status:Canceled - Manual Activation; * NOHEMI Thurston - 07/06/2015 4:00 PM CDT Reason For Visit Reason For Visit: Acute Visit, Chronic Recheck Visit Chief Complaint pt c/o left shoulder pain, worse in last two weeks. History of Present Illness Diabetes Type II (Follow-Up): The patient states he has been stable with his Type II Diabetes control since the last visit. Comorbid Illnesses: tobacco use. Symptoms: Home monitoring: The patient is not checking blood sugars at home. Glycemic control has been poor. Medications: Medication(s): Metformin HCl. The patient is not doing well with his diabetes goals. Due For: a hemoglobin A1c. Shoulder Pain: The patient is being seen for an initial evaluation of shoulder pain. The history today is reported by the patient. This condition is injury related. The injury involved the left shoulder. 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 The injury resulted from a direct blow. Symptoms: shoulder pain, shoulder stiffness and decreased range of motion at the shoulder, but no localized bruising and no localized swelling. No associated symptoms are reported. Review of Systems See HPI for pertinent [...] History 1. History of Ankle injury (959.7) (S95.350A) 2. History of Arthritis, multiple joint involvement (716.99) (M12.9) 3. History of Bilateral knee pain (719.46) (M25.561,M25.562) 4. History of Hay fever (477.9) (J30.1) 5. History of acute bronchitis (V12.69) (Z87.09) 6. History of acute bronchitis with bronchospasm (V12.69) (Z87.09) 7. History of acute sinusitis (V12.69) (Z87.09) 8. History of acute sinusitis (V12.69) (Z87.09) 9. History of atopic dermatitis (V13.3) (Z87.2) 10. History of chronic sinusitis (V12.69) (Z87.09) 11. History of fracture of upper extremity (V15.51) (Z87.81) ?? left forearm 12. History of Left forearm pain (729.5) (M79.632) 13. History of Left knee pain (719.46) (M25.562) 14. History of Left knee pain (719.46) (M25.562) 15. History of Osteoarthritis of knee (715.36) (M17.9) 16. History of Right knee pain (719.46) (M25.561) [...] Oral Tablet; TAKE 1 TABLET DAILY; Therapy: 22Glx0364 to (Evaluate:[id number]) Recorded Dispense: 30 Days ; #:30 Tablet; Refill: 0; MICHEL = N; Record; Last Updated By: Ivone Stokes; 11/30/2014 4:03:27 PM 2. Invokana 300 MG Oral Tablet; Take 1 tablet daily; Therapy: 18Sep2014 to (Evaluate:20Apr2015) Requested for: 22Oct2014; Last Rx:[id number] Ordered Rx By: Leana Johnson; Dispense: 30 Days ; #:30 Tablet; Refill: 5; For: Type 2 diabetes mellitus; MICHEL = N; Verified Transmission to [facility]; Msg to Pharmacy: NEW DOSAGE; Last Updated By: [email or web address]; 10/22/2014 4:02:28 PM 3. Lisinopril 10 MG Oral Tablet; TAKE ONE TABLET BY MOUTH ONCE DAILY FOR BLOOD PRESSURE; Therapy: 29Nov2011 to (Evaluate:[id number]) Requested for: 24Nov2014; Last Rx:[id number] Ordered Rx By: Leana Johnson; Dispense: 30 Days ; #:30 TAB; Refill: 5; For: Hypertension; MICHEL = N; FailedTransmission to [place] [address]; Last Updated By: [email or web address]; 11/24/2014 5:08:50 PM 4. MetFORMIN HCl - 500 MG Oral Tablet; TAKE TWO TABLETS BY MOUTH TWICE DAILY; Therapy: 29Jan2012 to (Evaluate:[id number]) Requested for: [id number]; Last Rx:10Sep2014 Ordered Rx By: Leana Johnson; Dispense: 30 Days ; #:120 TAB; Refill: 2; For: Diabetes mellitus; MICHEL = N; Verified Transmission to [place] [address]; Last Updated By: [email or web address]; 09/10/2014 8:30:58 AM Allergies 1. Codeine Sulfate TABS Recorded By: Deepthi Hernandez; 11/29/2011 4:45:28 PM 2. Darvocet-N 100 TABS Recorded By: Deepthi Hernandez; 11/29/2011 4:45:28 PM Vitals Recorded: 06Jul2015 03:13PM Temperature 97.9 F Heart Rate 81 Respiration 16 Systolic 104 Diastolic 62 O2 Saturation 98 Height 5 ft 9 in Weight 163 lb 3.2 oz BMI Calculated 24.1 BSA Calculated 1.89 Physical Exam Constitutional General appearance: Abnormal. appears older than stated age. Eyes Conjunctiva and lids: No swelling, erythema, or discharge. Ears, Nose, Mouth, and Throat External inspection of ears and nose: Normal. Pulmonary Respiratory effort: No increased work of breathing or signs of respiratory distress. Auscultation of lungs: Clear to auscultation. Cardiovascular Auscultation of heart: Normal rate and rhythm, normal S1 and S2, without murmurs. Examination of extremities for edema and/or varicosities: Normal. Musculoskeletal Gait and station: Normal. Inspection/palpation of joints, bones, and muscles: Abnormal. Palpation - left shoulder tenderness. Psychiatric Orientation to person, place and time: Normal. Mood and affect: Normal. Results/Data *A1C In Office 06Jul2015 03:29PM Leana Johnson Test Name Result Flag Reference A1C 8.7 A 4.2% - 6.5% Assessment 1. Diabetes mellitus (250.00) (E11.9) Plan Diabetes mellitus 1. *A1C In Office; Status:Complete; Done: 06Jul2015 03:29PM Performed:In Office; Due:05Aug2015;Ordered; For:Diabetes mellitus; Ordered By:Leana Johnson; 2. Hemoglobin A1C ( HA1C ); Status:Canceled - Manual Activation; Perform:[facility]; Due:27Jun2015; Last Updated By:Ivone Stokes; 07/06/2015 3:10:16 PM;Ordered; For:Diabetes mellitus; Ordered By:Leana Johnson; Discussion/Summary DM2 poorly controlled- Pt with HgA1c elevated from last visit with admitted poor efforts at dietarychanges. Again reviewed diet, medication and effects of hyperglycemia on entire body. FU in 3 months for repeat HgA1c Signatures Electronically signed by : Leana Johnson NP; Jul 06 2015 4:00PM ORDER BUILDER (Author) documented in this encounter Plan of Treatment Upcoming Encounters Date Type Department Care Team (Late st Contact Info) Description 06/09/2024 4:20 PM ORDER BUILDER Office Visit [facility] [place] [facility] Family & Internal Medicine [address] [address] León Sanchez MD [address] [place] [address] [place] [address] documented as of this encounter Procedures Procedure Name Priority Date/Time Associated Diagnosis Comments HEMOGLOBIN, GLYCOSYLATED Routine 07/06/2015 3:29 PM CDT documented in this encounter Results * (ABNORMAL) HEMOGLOBIN, GLYCOSYLATED (07/06/2015 3:29 PM CDT) HGB A1C 8.7(A) 4.2% - 6.5% [facility] TO EPIC CONVERSION 07/06/2015 3:29 PM CDT 07/06/2015 3:29 PM CDT Narrative [facility] TO EPIC CONVERSION - 07/06/2015 3:29 PM CDT Result Communication: Discussed results with patient us [facility]ana [facility] Final Result [facility] TO EPIC CONVERSION documented in this encounter Visit Diagnoses Not on filedocumented in this encounter
--- OUTSIDE RECORDS SUMMARY | 2024-04-27 18:27 | XMS_ITS | Encounter Summary ---
Author Organization [facility] Address [facility] 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 Labs continue to trend downward Ivone Stokes - 26 Feb 2015 2:02 PM TASK EDITED pt informed of HbA1c results and vocalized understanding. repeat in 3 months. Signatures Electronically signed by : Ivone Stokes, ; Feb 26 2015 2:02PM TELEVISION NEWSCAST DIRECTOR (Author) * NOHEMI Thurston - 02/26/2015 12:22 PM CST Message Continue current plan of care. Labs continue to trend downward Verified Results Hemoglobin A1C ( HA1C ) 25Feb2015 04:15PM Leana Johnson Test Name Result Flag Reference Hemoglobin A1c 7.4 % H <5.7 INCREASED RISK OF DIABETES <5.7% NON-DIABETES 5.7-6.4% INCREASED RISK FOR FUTURE DIABETES > OR = 6.5 CONSISTENT WITH DIABETES STANDARDS OF MEDICAL CARE IN DIABETES-2009 DIABETES CARE, 33(SUPP 1): S1-S61,2009 documented in this encounter Plan of Treatment Upcoming Encounters Date Type Department Care Team (Late st Contact Info) Description 06/09/2024 4:20 PM TELEVISION NEWSCAST DIRECTOR Office Visit [facility] Family & Internal Medicine - [place] [id number] [place] [address] León Sanchez [place] [id number] [place] [address] documented as of this encounter Visit Diagnoses Not on filedocumented in this encounter
--- OUTSIDE RECORDS SUMMARY | 2024-04-27 18:27 | XMS_ITS | Encounter Summary ---
Author Organization [facility] Address [address] [place] [address]. [place] [address] [place] [address] Care Team Providers Care Energy Technician Name Role Phone Unavailable Primary Care Provider Unavailabl e Encounter Details Date Type Department Care Team (Late st Contact Info) Description 04/14/[address] 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 documented as of this encounter Last Filed Vital Signs Vital Sign Reading Time Taken Comments Blood Pressure 120/76 04/14/2016 7:58 AM ALUMINUM BOAT INSPECTOR Pulse 102 04/14/2016 7:58 AM ALUMINUM BOAT INSPECTOR Temperature - - Respiratory Rate - - Oxygen Saturation - - Inhaled Oxygen Concentration - - Weight 74.1 kg (163 lb 6.4 oz) 04/14/2016 7:58 A M ALUMINUM BOAT INSPECTOR Height 175.3 cm (5' 9 ) 04/14/2016 7:58 AM ALUMINUM BOAT INSPECTOR Body Mass Index 24.13 04/14/2016 7:58 AM ALUMINUM BOAT INSPECTOR documented in this encounter Progress Notes * NOHEMI Thurston - 04/14/2016 8:00 AM CST Chief Complaint pt here to discuss DM. pt states he does not like taking the Glimepiride, c/o shakes and weakness after taking it. History of Present Illness Diabetes: The patient is being seen for Diabetes Mellitus 2. The HbA1c was 8.7% performed on 02/2016. Current treatment includes Metformin HCl and Sulfonylurea. See Medication List for current medication(s). By report, there is fair compliance with treatment, poor tolerance of treatment, poor symptom control and Pt c/o Glimeperide making him feel bad shakes and weak . He was taken off his Invokana when his insurance refused to cover. He recently received a letter informing him that it will be covered again as of 04/16/2016, and he would like to restart that. Current pertinent lifestyle factorsinclude disordered eating, inactivity and tobacco use. Review of Systems See HPI for pertinent positives. Constitutional: feeling poorly and feeling tired. ENT: nasal discharge. Cardiovascular: Normal. Respiratory: cough. Gastrointestinal: Normal. Genitourinary: Normal. Integumentary: Normal. Musculoskeletal: Normal. Neurological: Normal. Psychiatric: Normal. Active Problems 1. Dyslipidemia (272.4) (E78.5) 2. Hypertension (401.9) (I10) 3. Hypogonadism, testicular (257.2) (E29.1) 4. Type 2 diabetes mellitus (250.00) (E11.9) Past [...] chronic sinusitis (V12.69) (Z87.09) 10. History of diabetes mellitus (V12.29) (Z86.39) 11. History of fracture of upper extremity [...] depends on day, some canned some bottles ? Never a smoker ?? Never Drank Alcohol Current Meds 1. Aspirin 81 MG TABS; TAKE 1 TABLET DAILY; Therapy: 72Cxi8222 to (Evaluate:[id number]) Recorded 2. Lisinopril 10 MG Oral Tablet; TAKE ONE TABLET BY MOUTH ONCE DAILY FOR BLOOD PRESSURE; Therapy: 01Jxh6158 to (Evaluate:02Xyt1682) Requested for: 39Xqz3505; Last Rx:[id number] Ordered 3. MetFORMIN HCl - 500 MG Oral Tablet; TAKE TWO TABLETS BY MOUTH TWICE DAILY; Therapy: 41Yoa9030 to (Evaluate:93Uod2661) Requested for: [id number]; Last Rx:[id number] Ordered Allergies 1. Codeine Sulfate TABS 2. Darvocet-N 100 TABS Vitals Recorded: 95Xtj6175 07:58AM Temperature 98 F Heart Rate 102 Respiration 16 Systolic 120 Diastolic 76 O2 Saturation 99 Height 5 ft 9 in Weight 163 lb 6.4 oz BMI Calculated 24.13 BSA Calculated 1.9 Physical Exam Constitutional General appearance: Abnormal. chronically ill and uncomfortable. Pulmonary Respiratory effort: No increased work of breathing or signs of respiratory distress. Auscultation of lungs: Clear to auscultation. Cardiovascular Auscultation of heart: Normal rate and rhythm, normal S1 and S2, without murmurs. Musculoskeletal Gait and station: Normal. Psychiatric Orientation to person, place and time: Normal. Mood and affect: Normal. Assessment 1. Type 2 diabetes mellitus (250.00) (E11.9) 2. Acute sinusitis (461.9) (J01.90) Plan Acute sinusitis, Type 2 diabetes mellitus 1. Azithromycin 250 MG Oral Tablet; TAKE 2 TABLETS ON DAY 1 THEN TAKE 1 TABLET A DAY FOR 4 DAYS Rx By: Leana Johnson; Dispense: 5 Days ; #:6 Tablet; Refill: 0; For: Acute sinusitis, Type 2 diabetes mellitus; MICHEL = N; Verified Transmission to [facility]; Last Updated By: Eddie Donay; 04/14/2016 8:52:37 AM Type 2 diabetes mellitus 2. Invokana 300 MG Oral Tablet; TAKE ONE TABLET BY MOUTH ONCE DAILY Rx By: Leana Johnson; Dispense: 50 Days ; #:50 Tablet; Refill: 0; For: Type 2 diabetes mellitus; MICHEL = N; Dispense Sample; Last Updated By: Ivone Stokes; 04/14/2016 8:39:01 AM 3. *A1C In Office; Status:Active; Requested for:[id number]; Perform:In Office; Due:30Jun2016;Ordered; For:Type 2 diabetes mellitus; Ordered By:Leana Johnson; Discussion/Summary DM2- Pt has had a change in insurance coverage as of 04/16/2016 Invokana will again be covered and hewould like to switch back. He reports not doing well with current Glimeperide. Given samples for coverage and will change back to Invokana as of 04/16/2016. Sinusitis- Encouraged to continue OTC medications and increase oral fluid intake and rest. Will addAbx for added coverage. FU PRN Signatures Electronically signed by : Leana Johnson NP; Apr 14 2016 9:43AM ALUMINUM BOAT INSPECTOR (Author) documented in this encounter Plan of Treatment Upcoming Encounters Date Type Department Care Team (Late st Contact Info) Description 06/09/2024 4:20 PM ALUMINUM BOAT INSPECTOR Office Visit [facility] Family & Internal Medicine - [place] [address] [place] [address] [place] [address] [place] [address] documented as of this encounter Visit Diagnoses Not on filedocumented in this encounter
--- OUTSIDE RECORDS SUMMARY | 2024-04-27 18:27 | XMS_ITS | Encounter Summary ---
Author Organization [facility] Address [address] [place] [address]. 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 Driver Name Role Phone Unavailable Primary Care Provider Unavailabl e Encounter Details Date Type Department Care Team (Late st Contact Info) Description 02/13/2017 Abstract [facility] Family & Internal Medicine [facility] [address] [place] [address] [place] [address] [place], [place] [id number] Social History Tobacco Use Types Packs/Day Years Used Date Smoking Tobacco: Never Assessed Sex and Gender Information Value Date Recorded Sex Assigned at Not on file Legal Sex Male 6:22 PM CDT Gender Identity Not on file Sexual Orientation Straight 03/28/2018 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 He would like an injection in both knees. History of Present Illness Neck Mass (Brief): [...] no heat intolerance and no cold intolerance. Knee Pain: Braden Trejo presents with complaints of knee pain. Associated [...] Musculoskeletal: no limb swelling. Active Problems 1. Dyslipidemia (272.4) (E78.5) 2. Hypertension (401.9) (I10) 3. Hypogonadism, testicular (257.2) (E29.1) 4. Palpable mass of neck (784.2) (R22.1) 5. Seasonal allergies (477.9) (J30.2) 6. Smokeless tobacco use (305.1) (Z72.0) 7. Type 2 diabetes mellitus (250.00) (E11.9) Past Medical History History of Ankle injury (959.7) (S99.919A) History of Arthritis, multiple joint involvement (716.99) (M12.9) History of Hay fever (477.9) (J30.1) History of acute bronchitis (V12.69) (Z87.09) History of acute bronchitis with bronchospasm (V12.69) (Z87.09) History of acute sinusitis (V12.69) (Z87.09) History of atopic dermatitis (V13.3) (Z87.2) History of chronic sinusitis (V12.69) (Z87.09) History of diabetes mellitus (V12.29) (Z86.39) History of fracture of upper extremity (V15.51) (Z87.81) ?? left forearm History of Left forearm pain (729.5) (M79.632) History of Left knee pain (719.46) (M25.562) History of Osteoarthritis of knee (715.36) (M17.10) History of Prostate cancer screening (V76.44) (Z12.5) History of Right knee pain (719.46) (M25.561) Patient indicats no significant past medical history. Surgical History History of Abdominal Surgery Patient indicates no past surgical history. Family History Family history of arthritis (V17.7) (Z82.61) Family history of cerebrovascular accident (V17.1) (Z82.3) Family history of congestive heart failure (V17.49) (Z82.49) Family history of diabetes mellitus (V18.0) (Z83.3) Family history of hyperlipidemia (V18.19) (Z83.49) Family history of hypertension (V17.49) (Z82.49) Family history of malignant neoplasm (V16.9) (Z80.9) Patient indicates no significant family history of disease. Social History Current smokeless tobacco user Daily caffeine consumption ?? 3-7 sodas daily, depends on day, some canned some bottles PT QUIT SODA JULY 20, 2016 Never a smoker Never Drank Alcohol Smokeless tobacco use (305.1) (Z72.0) No social history was elicited today. Current Meds 1. Aspirin 81 MG TABS; TAKE 1 TABLET DAILY; Therapy: [id number] to (Evaluate:17Mye0896) Recorded Dispense: 30 Days ; #:30 Tablet; Refill: 0; MICHEL = N; Record; Last Updated By: Ivone Stokes; 11/30/2014 4:03:27 PM 2. Lisinopril 10 MG Oral Tablet; TAKE ONE TABLET BY MOUTH ONCE DAILY FOR BLOOD PRESSURE; Therapy: [id number] to (Evaluate:50Lei6397) Requested for: [id number]; Last Rx:[id number] Ordered Rx By: Candi Paredes; Dispense: 90 Days ; #:90 Tablet; Refill: 1; For: Hypertension; MICHEL = N; Verified Transmission to [facility]; Msg to Pharmacy: PT MUST HAVE APPT FOR FURTHER REFILLS; Last Updated By: Gluc[employer]Sent[employer]; 12/02/2016 9:26:43 AM 3. MetFORMIN HCl - 500 MG Oral Tablet; TAKE TWO TABLETS BY MOUTH TWICE DAILY; Therapy: 29Jan2012 to (Evaluate:10Ohw4841) Requested for: [id number]; Last Rx:[id number] Ordered Rx By: Candi Paredes; Dispense: 90 Days ; #:90 Tablet; Refill: 1; For: Type 2 diabetes mellitus; MICHEL = N; Verified Transmission to [facility] 435; Msg to Pharmacy: needs appt; Last Updated By: [employer]; 12/02/2016 9:26:46 AM Allergies 1. Codeine Sulfate TABS Updated By: Lesly Lovett; 02/13/2017 8:09:49 AM 2. Darvocet-N 100 TABS Recorded By: Deepthi Hernandez; 11/29/2011 4:45:28 PM Vitals Recorded: 13Feb2017 08:02AM Heart Rate 85 Respiration 14 Systolic 142 Diastolic 68 O2 Saturation 98 Height 5 ft 9 in Weight 159 lb BMI Calculated 23.48 BSA Calculated 1.87 Physical Exam Constitutional General appearance: No acute [...] time: Normal. Mood and affect: Normal. Results/Data CT NECK SFT TISSUE W 10Feb2017 09:46AM [employer] Test Name Result Flag Reference CT NECK SFT TISSUE W (Report) BRADEN TREJO ADMIT/SERVICE DATE: 02/10/17 ACCT: [id number] DISCHARGE DATE: : 1960 SEX: M ORD SITE: [facility] PT TYPE: REG CLI ORDERING MD: CANDI PAREDES STUDY DATE REPORT # ORDER # EXT ORDER ID 02/10/17 [id number] PROC CODE: [id number] PROCEDURE DESCRIPTION: CT NECK SOFT TISSUE W ADDENDUM #1 ADDENDUM: FINDINGS DISCUSSED WITH DR. QUISPE AT 9:45 AM FEBRUARY 10. ALSO, THE LESION AMENABLE TO DIRECT VISUALIZATION IS THE SMALLER 2.1 X 2.1 X 2.0 CM HYPOPHARYNGEAL MASS WHICH APPEARS TO BE MUCOSAL OR SUBMUCOSAL. ELECTRONICALLY SIGNED BY REGI MARQUEZ MD ON 02/10/2017 9:48 AM ORIGINAL REPORT TECHNIQUE: IV CONTRAST ENHANCED SOFT TISSUE NECK CT PERFORMED. PATIENT ADMINISTERED 75 ML ISOVUE- 370 IODINATED INTRAVENOUS CONTRAST. INDICATION: REPORTED 10.7 X 2.4 X 3.3 CM MIXED SOLID AND CYSTIC MASS IN THE LEFT SIDE OF THE NECK SEEN ON SOFT TISSUE ULTRASOUND PERFORMED JANUARY 27, 2017. REPORT: A LARGE COMPLEX MIXED CYSTIC AND SOLID MASS IS PRESENT ALONG THE LEFT MARGIN OF THE NECK IMMEDIATELY MEDIAL TO THE STERNOCLEIDOMASTOID MASTOID MUSCLE EXTENDING FROM JUST INFERIOR TO THE LEFT MASTOID BONE AND EXTENDING CAUDALLY ALONG AND PARALLEL TO THE STERNOCLEIDOMASTOID MUSCLE DOWN TO JUST ABOVE THE LEFT CLAVICULAR HEAD. DIMENSIONS ARE SIMILAR REPORTED ON THE RECENT ULTRASOUND , APPROXIMATELY 10 X 3 X 3 CM WITH MULTIPLE CYSTIC COMPONENTS. THE LARGEST CYSTIC COMPONENT MEASURES 3.1 X 2.9 X 2.4 CM AND IS LOCATED AT THE LEVEL OF THE C5 VERTEBRAL BODY AT THE HYPOPHARYNGEAL LEVEL. THE MASS DISPLACES THE CAROTID AND JUGULAR STRUCTURES IN THE MEDIAL AND ANTERIOR DIRECTION. DISTORTION OF THE LEFT PARAPHARYNGEAL FAT PLANE POSTERIORLY IS PRESENT. NONPATHOLOGIC SIZE BILATERAL JUGULODIGASTRIC AND POSTERIOR TRIANGLE WELL SUBMANDIBULAR AND SUPRACLAVICULAR LYMPH NODES PRESENT. A LEFT ANTEROLATERAL HYPOPHARYNGEAL SOLID MASS IS PRESENT WHICH MEASURES APPROXIMATELY 2.1 X 2.1 X 2.0 CM. THE RETROPHARYNGEAL AND RIGHT PARAPHARYNGEAL SPACES APPEAR NORMAL. THE FOSSAE OF ROSENMULLER APPEAR NORMAL. THE LEFT JUGULAR VEIN IS SIGNIFICANTLY COMPRESSED BUT APPEARS PATENT THROUGH THE SUPERIOR VENA CAVA. THE THYROID APPEARS NORMAL. OTHER THAN DEGENERATIVE CHANGES, THE BONES APPEAR NORMAL. VISUALIZED INTRACRANIAL CONTENTS AND UPPER CHEST APPEAR NORMAL. IMPRESSION: SUSPICIOUS 2.1 X 2.1 X 2.0 CM SOFT TISSUE MASS IN THE LEFT ANTEROLATERAL HYPOPHARYNGEAL REGION ALONG WITH COMPLEX CYSTIC MASS IMMEDIATELY MEDIAL TO THE LEFT STERNOCLEIDOMASTOID MUSCLE. THIS LESION SHOULD BE AMENABLE TO DIRECT VISUALIZATION VIA ENDOSCOPY. THE LARGEST FLUID POCKET WITHIN THE LARGER MASS MEASURES 3.1 X 2.9 X 2.4 CM IF ASPIRATION IS INDICATED. ENT CONSULTATION RECOMMENDED FOR ADDITIONAL EVALUATION OF THE HYPOPHARYNGEAL MASS. ELECTRONICALLY SIGNED BY REGI MARQUEZ MD ON 02/10/2017 9:11 AM Procedure Using sterile procedure with betadine after giving him the risk and benefit and signed consent injected the left knee with 1% lidocaine without epi and kenalog and bandaid applied then similar proceuder was carried out on the right pt tolerated the procedure well Assessment 1. Palpable mass of neck (784.2) (R22.1) 2. Type 2 diabetes mellitus (250.00) (E11.9) 3. Dyslipidemia (272.4) (E78.5) 4. Bilateral knee pain (719.46) (M25.561,M25.562) 5. Hypertension (401.9) (I10) Plan Hypertension 1. CBC W Differential; Status:In Progress - Specimen/Data Collected; Done: 13Feb2017 Perform:[facility]; Due:15Mar2017; Last Updated By:Rosa Stone; 02/13/2017 8:43:34 AM;Ordered; For:Hypertension; Ordered By:León Sanchez; 2. Compr Metabolic Prof ( CMP ); Status:In Progress - Specimen/Data Collected; Done: 13Feb2017 Perform:[facility]; Due:15Mar2017; Last Updated By:Rosa Stone; 02/13/2017 8:43:34 AM;Ordered; For:Hypertension; Ordered By:León Sanchez; Type 2 diabetes mellitus 3. *A1C In Office; Status:Resulted - Requires Verification; Done: 13Feb2017 09:10AM Performed:In Office; Due:15Mar2017; Last Updated By:Rosa Stone; 02/13/2017 9:10:20 AM;Ordered; For:Type 2 diabetes mellitus; Ordered By:León Sanchez; 1) Knee pain: he has had some relief after the right knee injection so I am going to go ahead and give him one in the left and he was told to rest and ice it up as much as possible today and since both knees were done to watch his sugars closely 2) He has a large left sided neck mass and a appointment with ENT this will await that consult and biopsy 3) DM: uncontrolled and he admits that he does not take his medications re started his metformin yesterday and was advised to restart trulicity and check a [id number] follow up in three months sooner if needed Signatures Electronically signed by : León Sanchez M.D.; Feb 18 2017 2:06PM 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 RETOUCHER APPRENTICE (Author) documented in this encounter Plan of Treatment Upcoming Encounters Date Type Department Care Team (Late st Contact Info) Description 06/09/2024 4:20 PM 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 APPRENTICE Office Visit [facility] Family & Internal Medicine [facility] [address] [place] [phone] León Sanchez MD [address] [place] [address] documented as of this encounter Procedures Procedure Name Priority Date/Time Associated Diagnosis Comments HEMOGLOBIN, GLYCOSYLATED Routine 02/13/2017 9:10 AM CDT documented in this encounter Results * (ABNORMAL) HEMOGLOBIN, GLYCOSYLATED (02/13/2017 9:10 AM CDT) HGB A1C 10.6(A) 4.2 - 6.5 % HbA1C [facility] TO [facility] CONVERSION 02/13/2017 9:10 AM CDT 02/13/2017 9:10 AM CDT Narrative [facility] TO [facility] CONVERSION - 02/13/2017 9:10 AM CDT Result Communication: No patient communication needed at this time us León Sanchez MD LABORATORY Final Resul t [facility] TO [facility] CONVERSION documented in this encounter Visit Diagnoses Not on filedocumented in this encounter
--- OUTSIDE RECORDS SUMMARY | 2024-04-27 18:27 | XMS_ITS | Encounter Summary ---
Author Organization [facility] Address [facility] 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 documented as of this encounter Plan of Treatment Upcoming Encounters Date Type Department Care Team (Late st Contact Info) Description 06/09/2024 4:20 PM LETTERER Office Visit [facility] Family & Internal Medicine [facility] [address] [place] [phone] [place] [address] [place] [address] documented as of this encounter Procedures Procedure Name Priority Date/Time Associated Diagnosis Comments COMPREHENSIVE METABOLIC PANEL Routine 02/13/2017 8:43 AM CDT CBC W/DIFF AUTOMATED Routine 02/13/2017 8:43 AM CDT documented in this encounter Results * (ABNORMAL) COMPREHENSIVE METABOLIC PANEL (02/13/2017 8:43 AM CDT) SODIUM S/P/B 136 136 - 145 MMOL/L [facility] TO [facility] CONVERSION POTASSIUM S/P/B 4.4 3.5 - 5.1 MMOL/L [facility] TO [facility]IC CONVERSION CHLORIDE S/P/B 101 98 - 107 MMOL/L [facility] TO EPIC CONVERSION CO2 26.0 22 - 29 MMOL/L [facility] TO EPIC CONVERSION ANION GAP 13.4 10.0 - 24.0 MMOL/L [facility] TO EPIC CONVERSION BUN 11 8.4 - 24.7 MG/DL [facility] TO EPIC CONVERSION CREATININE S/P/B 0.83 0.72 - 1.25 MG/DL [facility] TO EPIC CONVERSION GFR ESTIMATE >60 ?? GFR Reference Range: Kidney Failure - <15mL/min Chronic Kidney Disease - <60mL/min Normal Kidney Function - >60mL/min GFR calculation is not recommended for Patients less than 18 years or greater than 70 years as per the national Kid[employer]. If the patient is -Abigail n, multiply results by 1.21 >60 ML/MIN/1 .73 M2 [facility] TO [facility]IC CONVERSION BUN CREATININE RATIO 13.3 6.0 - 26.0 [facility] TO [facility]IC CONVERSION GLUCOSE 403(H) 70 - 105 MG/DL [facility] TO [facility]IC CONVERSION OSMOLALITY (CALC) 288 271 - 290 MOSM/KG [facility] TO [facility] CONVERSION CALCIUM S/P/B 9.3 8.4 - 10.2 MG/DL [facility] TO EPIC CONVERSION BILIRUBIN TOTAL S/P/B 1.2 0.2 - 1.2 MG/DL [facility] TO EPIC CONVERSION AST 12 5 - 34 U/L [facility] TO [facility]IC CONVERSION ALT 15 6 - 55 U/L [facility] TO EPIC CONVERSION ALKALINE PHOSPHATASE S/P/B 104 40 - 115 U/L [facility] TO EPIC CONVERSION TOTAL PROTEIN S/P/B 7.3 6.4 - 8.3 G/DL [facility] TO EPIC CONVERSION ALBUMIN S/P/B 4.1 3.5 - 5.0 G/DL [facility] TO EPIC CONVERSION A/G RATIO 1.3 1.1 - 1.9 RATIO [facility] TO [facility]IC CONVERSION 02/13/2017 8:43 AM CDT 02/13/2017 8:43 AM CDT Narrative [facility] TO [facility] CONVERSION - 02/13/2017 11:45 AM CDT Result Communication: No patient communication needed at this time us León Sanchez MD LABORATORY Final Resul t [facility] TO EPIC CONVERSION * (ABNORMAL) CBC W/DIFF AUTOMATED (02/13/2017 8:43 AM CDT) WBC 8.6 4.4 - 11.0 x10'3/uL [facility] TO [facility]IC CONVERSION RBC 5.45 4.50 - 5.90 x10'6/uL [facility] TO EPIC CONVERSION HGB 16.5 14.0 - 17.5 G/DL [facility] TO EPIC CONVERSION HCT 46.4 41.5 - 50.4 % [facility] TO EPIC CONVERSION MCV 85.1 80.0 - 96.0 FL [facility] TO EPIC CONVERSION MCH 30.3 26.5 - 31.4 PG [facility] TO EPIC CONVERSION MCHC 35.6(H) 31.9 - 34.8 G/DL [facility] TO EPIC CONVERSION RDW 11.8(L) 12.3 - 14.3 % [facility] TO [facility]IC CONVERSION PLT 180 151 - 353 x10'3/uL [facility] TO EPIC CONVERSION MPV 11.7 9.7 - 11.9 FL [facility] TO EPIC CONVERSION BASOPHILS % 1.4(H) 0.0 - 1.3 % [facility] TO EPIC CONVERSION EOSINOPHILS % 1.2 0.0 - 5.6 % [facility] TO EPIC CONVERSION NEUTROPHILS % 64.9 42.1 - 71.9 % [facility] TO EPIC CONVERSION LYMPHOCYTES % 25.1 15.8 - 45.0 % [facility] TO EPIC CONVERSION IMMATURE GRANS % 0.7(H) 0.0 - 0.5 % [facility] TO EPIC CONVERSION ABS. NEUTROPHILS TOTAL 5.60 1.40 - 6.00 x10'3/uL [facility] TO EPIC CONVERSION WBC MORPHOLOGY NORMAL [facility] OUP TO EPIC CONVERSION PLT MORPH. NORMAL [facility] TO EPIC CONVERSION RBC MORPHOLOGY NORMAL [facility] OUP TO EPIC CONVERSION MONOCYTES 6.7 5.7 - 12.5 % [facility] TO EPIC CONVERSION ABS. LYMPHOCYTES 2.17 0.80 - 4.70 x10'3/uL [facility] TO EPIC CONVERSION 02/13/2017 8:43 AM CDT 02/13/2017 8:43 AM CDT Narrative [facility] TO EPIC CONVERSION - 02/13/2017 11:14 AM CDT Result Communication: No patient communication needed at this time us León Sanchez MD LABORATORY Final Resul t [facility] TO [facility] CONVERSION documented in this encounter Visit Diagnoses Not on filedocumented in this encounter
--- OUTSIDE RECORDS SUMMARY | 2024-04-27 18:27 | XMS_ITS | Encounter Summary ---
Author Organization [facility] Address [address] [place] [address]. 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 Name Role Phone Unavailable Primary Care Provider Unavailabl e Encounter Details Date Type Department Care Team (Late st Contact Info) Description 12/02/2016 Abstract [facility] Family & Internal Medicine [facility] [address] [place] [address] [place] [address] [place] [address] Social History Tobacco Use Types Packs/Day Years Used Date Smoking Tobacco: Never Assessed Sex and Gender Information Value Date Recorded Sex Assigned at Not on file Legal Sex Male 6:22 PM CDT Gender Identity Not on file Sexual Orientation 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 encounter Last Filed Vital Signs Vital Sign Reading Time Taken Comments Blood Pressure 132/76 12/02/2016 8:21 AM CDT Pulse 73 12/02/2016 8:21 AM CDT Temperature - - Respiratory Rate - - Oxygen Saturation - - Inhaled Oxygen Concentration - - Weight 72.1 kg (159 lb) 12/02/2016 8:21 AM CDT Height 175.3 cm (5' 9 ) 12/02/2016 8:21 AM CDT Body Mass Index 23.48 12/02/2016 8:21 AM CDT documented in this encounter Progress Notes * NOHEMI Rhoades - 12/02/2016 8:20 AM CDT Reason For Visit Chronic Recheck Visit Chief Complaint pt here for f/u visit for HTN, DM and hyperlipidemia History of Present Illness HPI Free Text: Sonny is here for routine follow-up and medication management for diabetes, hyperlipidemia, and hypertension. He is due for routine lab work and will place orders today. He uses smokeless tobacco and is not interested in cessation. He is not currently taking any cholesterol medication and he says he won't. He doesn't like how any of them make him feel and he states he has used every class of cholesterol medication. He is not willing to try anything. He says he likes home cooked foods and isn'twilling to give up any of his favorite things. He says if I check his HbA1c right now he knows it will be bad . He says he does not check his blood glucose at home and will not. He was on Glimepiride at one time but only eats once a day and describes hypoglycemic episodes while on this. However, he has never checked his blood glucose. His medication was changed to Invokana. He has run out of this medication. With new warnings related to use of this medication in uncontrolled diabetes, will change his medication today. Believe Sonny would benefit from once/week medication so as not to be affected so much by irregular and infrequent meal schedule. He states he is willing to administer an infection once/week into abdominal fat. Teaching provided today and side effects, monitoring discussed. He will let me know if it is not covered by insurance. At his request, will refill Glimepiride in case Trulicity is not covered by insurance. That will be until he can be seen again and can discuss d ifferent treatment. Stressed importance of taking Glimepiride with food if he ends up using the medication. He says that even though he is unwilling to make many changes, he is afraid of disability due to diabetes and therefore he would like to hear what a power system engineer would recommend and he would like to add another medication. He does not check his BP at home and does not make lifestyle changes for sake of heart health. BP is controlled today. Hyperlipidemia (Follow-Up): The patient states his hyperlipidemia has been poorly controlled since the last visit. Comorbid Illnesses: diabetes mellitus, tobacco use and hypertension. Symptoms: denies chest pain, denies intermittent leg claudication, denies muscle pain and denies muscle weakness. Associated symptoms include no memory loss. Medications: The patient is not currently on any medications for his hyperlipidemia. the patient isnot adherent with his medication regimen. The patient is not doing well with his hyperlipidemia goals. The patient is due for a lipid panel. Hypertension (Follow-Up): The patient states he has been stable with his blood pressure control since the last visit. He has no comorbid illnesses. Symptoms: denies impaired vision, denies dyspnea, denies chest pain, denies intermittent leg claudication and denies lower extremity edema. Associated symptoms include no headache, no focal neurologic deficits and no memory loss. Home monitoring: The patient is not checking blood pressure at home. Medications: the patient is adherent with his medication regimen. He denies medication side effects. The patient is due for a lipid panel, an eye exam and a urine microalbumin. Diabetes Type II (Follow-Up): The patient states he has been doing poorly with his Type II Diabetescontrol since the last visit. Comorbid Illnesses: hypertension, tobacco use and hyperlipidemia. Symptoms: denies numbness of the feet, denies a foot ulcer, denies foot pain, denies vomiting and denies visual impairment. Associated symptoms include no polyuria and no polydipsia. Home monitoring: The patient is not checking blood sugars at home. Medications: the patient is adherent with his medication regimen. He denies medication side effects. Due For: a lipid panel, a urine microalbumin, a hemoglobin A1c, a retinal exam and a foot exam. Review of Systems See HPI for pertinent positives. Constitutional: no fever, not feeling poorly, no chills, not feeling tired and no headache. ENT: no earache, no hearing loss and no nasal discharge. Cardiovascular: no chest pain, no intermittent leg claudication, no palpitations and no lower extremity edema. Respiratory: no shortness of breath, no cough, no wheezing and no shortness of breath during exertion. Gastrointestinal: no abdominal pain, no constipation, no vomiting and no diarrhea. Genitourinary: no dysuria and no nocturia. Integumentary: Normal. Musculoskeletal: arthralgias and joint pain (knee pain). Neurological: Normal. Psychiatric: Normal. Active Problems 1. Dyslipidemia (272.4) (E78.5) 2. Hypertension (401.9) (I10) 3. Hypogonadism, testicular (257.2) (E29.1) 4. Seasonal allergies (477.9) (J30.2) 5. Type 2 diabetes mellitus (250.00) (E11.9) [...] acute sinusitis (V12.69) (Z87.09) 11. History of atopic dermatitis (V13.3) (Z87.2) 12. History of chronic sinusitis (V12.69) (Z87.09) 13. History of diabetes mellitus (V12.29) (Z86.39) 14. History of fracture of upper extremity (V15.51) (Z87.81) ?? left forearm 15. History of Left forearm pain (729.5) (M79.632) 16. History of Left knee pain (719.46) (M25.562) 17. History of Left knee pain (719.46) (M25.562) 18. History of Osteoarthritis of knee (715.36) (M17.10) 19. History of Prostate cancer screening (V76.44) (Z12.5) 20. History of Right knee pain (719.46) (M25.561) [...] MG TABS; TAKE 1 TABLET DAILY; Therapy: 80Utf2648 to (Evaluate:63Tuc5666) Recorded 2. Invokana 300 MG Oral Tablet; Take 1 tablet daily; Therapy: 49Cpa4525 to (Evaluate:64Jkj3706) Requested for: 35Bam8795; Last Rx:[id number] Ordered 3. Lisinopril 10 MG Oral Tablet; TAKE ONE TABLET BY MOUTH ONCE DAILY FOR BLOOD PRESSURE; Therapy: 26Xzu9407 to (Evaluate:39Pau8880) Requested for: 48Jsw1904; Last Rx:41Kjr7564 Ordered 4. Loratadine 10 MG Oral Tablet; TAKE 1 TABLET DAILY NEEDED; Therapy: 57Qge5812 to (Evaluate:58Awy3125); Last Rx:[id number] Ordered 5. MetFORMIN HCl - 500 MG Oral Tablet; TAKE TWO TABLETS BY MOUTH TWICE DAILY; Therapy: 55Guj9648 to (Evaluate:20Rgi6013) Requested for: 45Fpr2180; Last Rx:76Ptw1746 Ordered 6. Symbicort 80-4.5 MCG/ACT Inhalation Aerosol; INHALE 2 PUFFS TWICE DAILY. RINSE MOUTH AFTER USE; Therapy: 41Liu7670 to (Last Rx:30Pmr4166) Ordered Allergies 1. Codeine Sulfate TABS 2. Darvocet-N 100 TABS Vitals Recorded: 02Dec2016 08:21AM Heart Rate 73 Systolic 132 Diastolic 76 O2 Saturation 98 Height 5 ft 9 in Weight 159 lb BMI Calculated 23.48 BSA Calculated 1.87 Physical Exam Constitutional General appearance: Abnormal. chronically ill and uncomfortable. Eyes Conjunctiva and lids: No swelling, erythema, or discharge. Ears, Nose, Mouth, and Throat External inspection of ears and nose: Normal. Otoscopic examination: Tympanic membrane translucent with normal light reflex. Canals patent without erythema. Oropharynx: Abnormal. (poor dentition. Missing and stained teeth. No sores or discoloration of gums) Pulmonary Respiratory effort: No increased work of breathing or signs of respiratory distress. Auscultation of lungs: Clear to auscultation. Cardiovascular Auscultation of heart: Normal rate and rhythm, normal S1 and S2, without murmurs. Examination of extremities for edema and/or varicosities: Normal. Abdomen Abdomen: Non-tender, no masses. Liver and spleen: No hepatomegaly or splenomegaly. Lymphatic Palpation of lymph nodes in neck: No lymphadenopathy. Musculoskeletal Gait and station: Normal. Inspection/palpation of joints, bones, and muscles: Abnormal. arthritis of both knees. Skin Skin and subcutaneous tissue: Normal without rashes or lesions. Neurologic Cranial nerves: Cranial nerves 2-12 intact. Psychiatric Orientation to person, place and time: Normal. Mood and affect: Normal. Right Foot Findings: dryness. The toes were normal. The sensory exam showed normal vibratory sensation at the level of the toes and normal position sense at the level of the toes. Left Foot Findings:dryness. The toes were normal. The sensory exam showed normal vibratory sensation at the level of the toes and normal position sense at the level of the toes. Monofilament Testing: diminished tactile sensation with monofilament testing throughout both feet. Tactile sensation in the right foot (see image for location): number 4 was diminished and number 5 was diminished. Tactile sensation in the left foot (see image for location): number 5 was diminished, number 6 was diminished, number 2 was diminished, number 3 was diminished and number 9 was diminished. Vascular: Capillary refills findings on the right were normal in the toes. Pulses: 1+ in the dorsalis pedis. Capillary refills findings on the left were normal in the toes. Pulses: 1+ in the dorsalispedis. Counseling The patient was counseled regarding instructions for management, risk factor reductions, patient and family education, impressions, risks and benefits of treatment options and importance of compliance with treatment. Assessment 1. Type 2 diabetes mellitus (250.00) (E11.9) 2. Hypertension (401.9) (I10) 3. Dyslipidemia (272.4) (E78.5) 4. Smokeless tobacco use (305.1) (Z72.0) Plan Dyslipidemia, Hypertension 1. Lipid W/ Calculated LDL; Status:Hold For - Manual Activation; Requested for:02Dec2016; Perform:[facility]; Due:04Map4233;Ordered; For:Dyslipidemia, Hypertension; Ordered By:Prudence Paredes; Dyslipidemia, Hypertension, Type 2 diabetes mellitus 2. CBC W Differential; Status:Hold For - Manual Activation; Requested for:02Dec2016; Perform:[facility]; Due:63Xcj7939;Ordered; For:Dyslipidemia, Hypertension, Type 2 diabetes mellitus; Ordered By:Prudence Paredes; 3. Compr Metabolic Prof ( CMP ); Status:Hold For - Manual Activation; Requested for:02Dec2016; Perform:[facility]; Due:33Ztd2200;Ordered; For:Dyslipidemia, Hypertension, Type 2 diabetes mellitus; Ordered By:Prudence Paredes; Hypertension 4. Lisinopril 10 MG Oral Tablet; TAKE ONE TABLET BY MOUTH ONCE DAILY FOR BLOOD PRESSURE Rx By: Prudence Paredes; Dispense: 90 Days ; #:90 Tablet; Refill: 1; For: Hypertension; MICHEL = N; Verified Transmission to [facility]; Msg to Pharmacy: PT MUST HAVE APPT FOR FURTHER REFILLS; Last Updated By: Corinne Morgan; 12/02/2016 9:26:43 AM 5. Begin or continue regular aerobic exercise. Gradually work up to at least 3 sessions of 30 minutes of exercise a week.; Status:Complete; Done: 04Dec2016 10:44AM Ordered; For:Hypertension; Ordered By:Prudence Paredes; 6. Limit your use of alcohol to 2 drinks or cans of beer a day.; Status:Complete; Done: 04Dec2016 10:44AM Ordered; For:Hypertension; Ordered By:Prudence Paredes; 7. Pre-printed Instructions given to patient; Status:Complete; Done: 04Dec2016 10:44AM Ordered; For:Hypertension; Ordered By:Prudence Paredes; 8. Take your blood pressure twice a week. Record the numbers and bring them with you to your appointments.; Status:Complete; Done: 04Dec2016 10:44AM Ordered; For:Hypertension; Ordered By:Prudence Paredes; 9. We encourage you to begin to make lifestyle changes to help control your blood pressure. These may include losing weight, increasing your activity level, limiting salt in your diet, decreasing alcohol intake, and eating a diet low in fat and rich in fruits and vegetables.; Status:Complete; Done: 04Dec2016 10:44AM Ordered; For:Hypertension; Ordered By:Prudence Paredes; 10. We recommend you modify your diet to achieve and maintain a healthy weight. Being overweight may increase your risk for developing health problems such as diabetes, heart disease, and cancer. Avoid high fat foods and eat a balanced diet rich in fruits and vegetables. The combination of a reduced-calorie diet and increased physical activity is recommended. Please let us know if you would like to learn more about your nutrition and calorie needs, and additional options including weight loss programs that can help you achieve your goals.; Status:Complete; Done: 04Dec2016 10:44AM Ordered; For:Hypertension; Ordered By:Prudence Paredes; 11. You need to stop smoking. Though it is not easy, more than half of all adult smokers have quit. We encourage you to write down all the reasons you should quit smoking and set a quit date for yourself. Ask us how we can help. You may also call 8-437-WGZGNOW for free resources and assistance.; Status:Complete; Done: 04Dec2016 10:44AM Ordered; For:Hypertension; Ordered By:Prudence Paredes; 12. Call if: You become dizzy or lightheaded, especially when you stand up after sitting for a while.; Status:Complete; Done: 04Dec2016 10:44AM Ordered; For:Hypertension; Ordered By:Prudence Paredes; 13. Call if: You develop double vision (see two of everything).; Status:Complete; Done: 04Dec2016 10:44AM Ordered; For:Hypertension; Ordered By:Prudence Paredes; 14. Call if: Your blood pressure is frequently higher than 140/90.; Status:Complete; Done: 91Vly7686 10:44AM Ordered; For:Hypertension; Ordered By:Prudence Paredes; 15. Call 911 if: You experience a new kind of chest pain (angina) or pressure.; Status:Complete; Done: 04Dec2016 10:44AM Ordered; For:Hypertension; Ordered By:Prudence Paredes; 16. Call 911 if: You have any symptoms of a stroke.; Status:Complete; Done: 04Dec2016 10:44AM Ordered; For:Hypertension; Ordered By:Prudence Paredes; 17. Seek Immediate Medical Attention if: You have a severe headache that will not go away.; Status:Complete; Done: 04Dec2016 10:44AM Ordered; For:Hypertension; Ordered By:Prudence Paredes; 18. Seek Immediate Medical Attention if: Your blood pressure is greater than 250/120 for 2 consecutive readings.; Status:Complete; Done: 04Dec2016 10:44AM Ordered; For:Hypertension; Ordered By:Prudence Paredes; Hypertension, Type 2 diabetes mellitus 19. Urine Microalb / Creat Ratio; Status:Hold For - Manual Activation; Requested for:[id number]; Perform:[facility]; Due:92Pyd7082;Ordered; For:Hypertension, Type 2 diabetes mellitus; Ordered By:Prudence Paredes; Type 2 diabetes mellitus 20. Invokana 300 MG Oral Tablet Rx By: Leana Johnson; Dispense: 25 Days ; #:25 Tablet; Refill: 0; For: Type 2 diabetes mellitus; MICHEL = N; Dispense Sample; Last Updated By: Prudence Paredes; 12/02/2016 9:24:41 AM 21. Trulicity 1.5 MG/0.5ML Subcutaneous Solution Pen-injector; INJECT 1.5 MG (0.5 ML) SUBCUTANEOUSLY ONCE WEEKLY Rx By: Prudence Paredes; Dispense: 90 Days ; #:3 X 0.5 ML Pen (4 Pens); Refill: 0; For: Type 2 diabetes mellitus; MICHEL = N; Verified Transmission to [facility]; Last Updated By: Corinne Morgan; 12/02/2016 9:26:44 AM 22. Glimepiride 4 MG Oral Tablet; Take 1 tablet daily Rx By: Prudence Paredes; Dispense: 30 Days ; #:30 Tablet; Refill: 1; For: Type 2 diabetes mellitus; MICHEL = N; Verified Transmission to [facility]; Last Updated By: SOASTA; 12/02/2016 9:26:45 AM 23. MetFORMIN HCl - 500 MG Oral Tablet; TAKE TWO TABLETS BY MOUTH TWICE DAILY Rx By: Prudence Paredes; Dispense: 90 Days ; #:90 Tablet; Refill: 1; For: Type 2 diabetes mellitus; MICHEL = N; Verified Transmission to [facility]; Msg to Pharmacy: needs appt; Last Updated By: SOASTA; 12/02/2016 9:26:46 AM 24. Diabetic foot examination; Status:Complete; Done: 74Bks3799 10:39AM Perform:In Office; Due:87Rtc5559;Ordered; For:Type 2 diabetes mellitus; Ordered By:Prudence Paredes; 25. Hemoglobin A1C ( HA1C ); Status:Hold For - Manual Activation; Requested for:37Vtv1574; Perform:[facility]; Due:54Zmk0413;Ordered; For:Type 2 diabetes mellitus; Ordered By:Prudence Paredes; 26. Monofilament Foot Sensation Test; Status:Complete; Done: 86Syf6488 10:39AM Perform:In Office; Due:75Hlm1424;Ordered; For:Type 2 diabetes mellitus; Ordered By:Prudence Paredes; 27. Pedal pulse taking; Status:Complete; Done: 55Zud9860 10:39AM Perform:In Office; Due:06Fra0781;Ordered; For:Type 2 diabetes mellitus; Ordered By:Prudence Paredes; 28. SMOKING CESSATION; Status:Active; Requested for:14Jyw4200; Perform:In Office; Due:33Bvs9895;Ordered; For:Type 2 diabetes mellitus; Ordered By:Prudence Paredes; Diabetes: Uncontrolled. Stop Invokana. Begin Trulicity as prescribed, once/week. If having difficulty with insurance coverage, resume Glimepiride for now. If no trouble, do not start Glimepiride. Continue Metformin as directed. Recommend checking blood sugar first thing in the morning at least two days/week and when you feel your sugar is low. Expect a call to schedule appointment with power system engineer with [facility]. HbA1c goal <7%. Recommend annual dilated eye exam. Hypertension: Controlled. Continue Lisinopril as directed. Recommend limiting sodium and checking BP at least two days/week. BP goal is <140 and <80. Hyperlipidemia: Not controlled. Recommend [id number]-neanhpr fish oil as directed on package. Recommend cessation of tobacco use. Recommend limiting high fat foods and drinks. Recommend regular physical activity. Have fasting blood work drawn at earliest convenience. Will call with results and recommendations. If having trouble with glucose meter, bring with you to next appointment. Follow-up in office in 3 months, sooner if needed. Mechanical Field Engineer Referral Outpatient For: Type 2 diabetes mellitus Requesting power system engineer with [facility] in [place] for diabetes education and guidance with food planning. Thank you. Status: Need Information - Financial Authorization Requested for: [id number] Ordered; For: Type 2 diabetes mellitus; Ordered By: Prudence Paredes Performed: Due: [id number] Discussion/Summary Instructed on how to administer Trulicity and stressed importance of site rotation. Reviewed s/s ofhypoglycemia and how to treat. He understands the long-term health risks of not reaching A1c goal but states there is very little he is willing to do manage his diabetes. Reviewed recommended BG goals /monitoring/parameters. Reviewed diet and exercise recommendations. Reviewed proper foot care. Willrecommend flu vaccine at next office visit and revisit need for dilated eye exam. Reviewed BP monitoring/goals/parameters. All medications reviewed including indication, dose, how to take, when to take, and possible side effects. Sonny stated understanding to all instructions. Tobacco use screening completed. Visual exam of foot completed. Monofilament foot sensation test completed. Assessment of pedal pulse completed. 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
--- OUTSIDE RECORDS SUMMARY | 2024-04-27 18:27 | XMS_ITS | Encounter Summary ---
Author Organization [facility] Address [facility] 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 PSA VALUES OBTAINED WITH OTHER ASSAY METHODS OR KITS CANNOT BE USED INTERCHANGEABLY WITH RESULTS OBTAINED BY THE VICKI METHOD. TESTING PERFORMED AT [address] [address] CBC W Differential [id number] 08:03AM Leana Johnson Test Name Result Flag Reference WBC 10.5 x10'3/uL 4.4-11.0 RBC 5.40 x10'6/uL 4.50-5.90 Hemoglobin (HGB) 16.3 G/DL 14.0-17.5 Hematocrit (HCT) 48.1 % 41.5-50.4 Mean Corpuscular Volume (MCV) 89.1 FL 80.0-96.0 Mean Corpuscular Hgb (MCH) 30.2 PG 26.5-31.4 Mean Corpuscular Hgb Conc (MCH 33.9 G/DL 31.9-34.8 RDW 12.4 % 12.3-14.3 PLATELET COUNT 261 x10'3/uL 151-353 Mean Platelet Volume (MPV) 10.6 FL 9.7-11.9 RBC Morphology NORMAL Platelet Evaluation NORMAL WBC Morphology NORMAL Lymphocytes % (Auto) 24.5 % 15.8-45.0 NEUTROPHILS 67.1 % 42.1-71.9 MONOCYTES 5.2 % L 5.7-12.5 Eosinophils % (Auto) 0.9 % 0.0-5.6 Basophils % (Auto) 1.1 % 0.0-1.3 Total Absolute Neutrophils 7.03 x10'3/uL H 1.40-6.00 IMMATURE GRANULOCYTES 1.2 % H 0.0-0.5 ABS. LYMPHOCYTES 2.56 x10'3/uL 0.80-4.70 Compr Metabolic Prof ( CMP ) [id number] 08:03AM Leana Johnson Test Name Result Flag Reference Glucose 185 MG/DL H 70-105 Blood Urea Nitrogen (BUN) 19 MG/DL 8.4-24.7 Creatinine 0.77 MG/DL 0.72-1.25 Sodium (Na) 140 MMOL/L 136-145 Potassium (K) 4.7 MMOL/L 3.5-5.1 Chloride (Cl) 102 MMOL/L 98-107 Carbon Dioxide (CO2) 28.0 MMOL/L 22-29 Anion Gap 14.7 MMOL/L 10.0-24.0 OSMOLALITY CALC 286 MOSM/KG 271-290 Calcium 9.8 MG/DL 8.4-10.2 Total Bilirubin 0.8 MG/DL 0.2-1.2 Total Protein 7.2 G/DL 6.4-8.3 Albumin 4.3 G/DL 3.5-5.0 AST/GOT 13 U/L 5-34 ALT/GPT 20 U/L 6-55 Alkaline Phosphatase (ALKP) 59 U/L 40-115 BUN CREATININE RATIO 24.7 6.0-26.0 A:G Ratio 1.5 RATIO 1.1-1.9 Glomerular Filt Rate Calc (Report) >60 >60 GFR Reference Range: Kidney Failure - <15mL/min Chronic Kidney Disease - <60mL/min Normal Kidney Function - >60mL/min GFR calculation is not recommended for Patients less than 18 years or greater than 70 years as per the national Kidney Foundation. If the patient is -St Helenian, multiply results by 1.21 Lipid W/ Calculated LDL [id number] 08:03AM Leana Johnson Test Name Result Flag Reference CHOLESTEROL 230 MG/DL H <200 TRIGLYCERIDE 234 MG/DL H <150 HDL CHOLESTEROL 41 MG/DL L >45 LDL CALCULATED 142.2 MG/L H <130 CHOL/HDL RATIO 5.6 INTERPRETATION OF RESULTS NHLBI RECOMMENDED RANGES CHOLESTEROL MG/DL LDL MG/DL DESIRABLE <200 <130 BORDERLINE 200-239 130-159 HIGH RISK >240 >160 REFERENCE VALUE FOR HDL CHOLESTEROL RISK LEVEL MALE MG/DL FEMALE MG/DL DECREASED >45 >55 AVERAGE 45 55 INCREASED <45 <55 documented in this encounter Plan of Treatment Upcoming Encounters Date Type Department Care Team (Late st Contact Info) Description 06/09/2024 4:20 PM 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
--- OUTSIDE RECORDS SUMMARY | 2024-04-27 18:27 | XMS_ITS | Encounter Summary ---
Author Organization [facility] Address [address] [place] [address]. [place] [address] [place] [address] Care Team Providers Care Tutor Coordinator Name Role Phone Unavailable Primary Care Provider Unavailabl e Encounter Details Date Type Department Care Team (Latest Contact Info) Description 01/23/2014 Abstract [facility] Social History Tobacco Use Types Packs/Day Years Used Date Smoking Tobacco: Never Assessed Sex and Gender Information Value Date Recorded Sex Assigned at Not on file Legal Sex Male 6:22 PM CDT Gender Identity Not on file Sexual Orientation Straight 03/28/2018 4: 44 PM ACIDIZER documented as of this encounter Plan of Treatment Upcoming Encounters Date Type Department Care Team (Late st Contact Info) Description 06/09/2024 4:20 PM ACIDIZER Office Visit [facility] Family & Internal Medicine [facility] [id number] [place] [phone] León Sanchez [place] [id number] [place] [address] documented as of this encounter Procedures Procedure Name Priority Date/Time Associated Diagnosis Comments HEMOGLOBIN, GLYCOSYLATED Routine 07/20/2014 1:59 PM CDT documented in this encounter Results * (ABNORMAL) HEMOGLOBIN, GLYCOSYLATED (07/20/2014 1:59 PM CDT) HGB A1C 9.0(H) <5.7 % [facility] T O EPIC CONVERSION Comment: Result Comment: ?? INCREASED RISK OF DIABETES <5.7% ?NON-DIABETES 5.7-6.4% INCREASED RISK FOR FUTURE DIABETES > OR = 6.5 CONSISTENT WITH DIABETES ?? STANDARDS OF MEDICAL CARE IN DIABETES-2010 DIABETES CARE, 33(SUPP 1): S1-S61,2010 07/20/2014 1:59 PM CDT 07/20/2014 1:59 PM CDT Narrative [facility] TO EPIC CONVERSION - 07/21/2014 7:13 AM CDT Result Communication: Call patient with results us Leana [facility] Final Result [facility] TO EPIC CONVERSION documented in this encounter Visit Diagnoses Not on filedocumented in this encounter
--- OUTSIDE RECORDS SUMMARY | 2024-04-27 18:27 | XMS_ITS | Encounter Summary ---
Author Organization [facility] Address [address] [place] [address]. [place] [address] [place] [address] Care Team Providers Care Microwave Supervisor Name Role Phone Unavailable Primary Care Provider Unavailabl e Encounter Details Date Type Department Care Team (Latest Contact Info) Description 09/28/2014 Abstract [facility] Social History Tobacco Use Types Packs/Day Years Used Date Smoking Tobacco: Never Assessed Sex and Gender Information Value Date Recorded Sex Assigned at Not on file Legal Sex Male 6:22 PM CDT Gender Identity Not on file Sexual Orientation Straight 03/28/2018 4: 44 PM VISUAL EFFECTS EDITOR documented as of this encounter Progress Notes * Kareen Troy Md, MD - 09/28/2014 9:22 AM CDT Message Message: Spoke to Dr. Jeronimo's office regarding pts bilateral knee pain, to see what his next stepwould be. They stated that they had seen the pt in April and discussed to have knee injections. She stated that it looks like on May.20 they requested for the injections but had never heard if they were approved or not. She stated that she would talk to [place] who does the authorizations there and they will call the pt. Signatures Electronically signed by : Ashlee Jennings, ; Sep 28 2014 9:25AM VISUAL EFFECTS EDITOR (Author) documented in this encounter Plan of Treatment Upcoming Encounters Date Type Department Care Team (Late st Contact Info) Description 06/09/2024 4:20 PM VISUAL EFFECTS EDITOR Office Visit [facility] Medical [facility] Family & Internal Medicine [address] [address] [place] [address] [facility] [place] [address] documented as of this encounter Visit Diagnoses Not on filedocumented in this encounter
--- OUTSIDE RECORDS SUMMARY | 2024-04-27 18:27 | XMS_ITS | Encounter Summary ---
Author Organization [facility] Address [facility] [place] [address] [place] [address] Care Team Providers Care On Air Host Name Role Phone Unavailable Primary Care Provider Unavailabl e Encounter Details Date Type Department Care Team (Latest Contact Info) Description 01/27/2017 Abstract [facility] Candi Paredes APNP [address] [address] Social History Tobacco Use Types Packs/Day Years Used Date Smoking Tobacco: Never Assessed Sex and Gender Information Value Date Recorded Sex Assigned at Not on file Legal Sex Male 6:22 PM CDT Gender Identity Not on file Sexual Orientation Straight 03/28/2018 4: 44 PM LICENSED TAX CONSULTANT documented as of this encounter Plan of Treatment Upcoming Encounters Date Type Department Care Team (Late st Contact Info) Description 06/09/2024 4:20 PM LICENSED TAX CONSULTANT Office Visit [facility] Medical [facility] Family & Internal Medicine [address] [address] León Sanchez MD [address] [place] [phone] documented as of this encounter Procedures Procedure Name Priority Date/Time Associated Diagnosis Comments US SOFT TISS HEAD OR NECK Routine 01/27/2017 9:03 AM CDT documented in this encounter Results * US SOFT TISS HEAD OR NECK (01/27/2017 9:03 AM CDT) Anatomical Region Laterality Modality Head, Neck Ultrasound 01/27/2017 9:03 AM CDT 01/27/2017 9:03 AM CDT Narrative 01/27/2017 9:10 AM CDT BRADEN TREJO ? ADMIT/SERVICE DATE: 01/27/17 ?? ACCT: [id number] ?DISCHARGE DATE: ?? : 1960 ??SEX: M ?ORD SITE: [facility] ?? PT TYPE: REG CLI ? ORDERING MD: CANDI PAREDES ? STUDY DATE ? REPORT # ?ORDER # ? EXT ORDER ID ?? 01/27/17 ? [id number] ? [id number] ?[id number] ? PROC CODE: ? SFTS-HD/NK ? PROCEDURE DESCRIPTION: ?? US SOFT TISSUE HEAD NECK ? IMAGING STUDIES:US SOFT TISSUE HEAD NECK ? DATE: 01/27/2017 8:15 AM ? INDICATION: OTHER - US-HEAD AND NECK US FOR NONPALABLE NECK MASS ? COMPARISON: NO COMPARISONS. ? TECHNIQUE: EXAMINATION PERFORMED BY SUPERVISOR MAPLE PRODUCTS USING GRAYSCALE WITH COLOR FLOW AND SPECTRAL DOPPLER. SELECTED IMAGES SUBMITTED FOR INTERPRETATION. WORKSHEET COMPLETED. ? IMPRESSION: ? THERE IS A VERY LARGE PARTIALLY SOLID PARTIALLY CYSTIC MASS PRESENT WITHIN THE LEFT NECK PARALLEL TO THE CAROTID VASCULATURE MEASURING APPROXIMATELY 10.7 X 2.4 X 3.3 CM. THIS MASS IS NONSPECIFIC. MALIGNANCY CANNOT BE EXCLUDED. RECOMMEND CORRELATION WITH CONTRAST-ENHANCED CT SOFT TISSUE NECK. ? ELECTRONICALLY SIGNED BY QUINTEN HUTCHINS MD ON 01/27/2017 9:06 AM ? Procedure Note Kareen Herrera MD - 02/08/2018 BRADEN TREJO ADMIT/SERVICE DATE:01/27/17 ACCT: [id number] DISCHARGE DATE: : 1960 SEX: M ORD SITE: [facility] PT TYPE: REG CLI ORDERING MD:CANDI PAREDES STUDY DATE REPORT # ORDER # EXT ORDER ID 01/27/17 [id number] PROC CODE: SFTS-HD/NK PROCEDURE DESCRIPTION: US SOFT TISSUE HEAD NECK IMAGING STUDIES:US SOFT TISSUE HEAD NECK DATE: 01/27/2017 8:15 AM INDICATION: OTHER - US-HEAD AND NECK US FOR NONPALABLE NECK MASS COMPARISON: NO COMPARISONS. TECHNIQUE: EXAMINATION PERFORMED BY SUPERVISOR MAPLE PRODUCTS USING GRAYSCALE WITHCOLOR FLOW AND SPECTRAL DOPPLER. SELECTED IMAGES SUBMITTED FOR INTERPRETATION. WORKSHEETCOMPLETED. IMPRESSION: THERE IS A VERY LARGE PARTIALLY SOLID PARTIALLY CYSTIC MASS PRESENTWITHIN THE LEFT NECK PARALLEL TO THE CAROTID VASCULATURE MEASURING APPROXIMATELY 10.7 X 2.4 X 3.3 CM.THIS MASS IS NONSPECIFIC. MALIGNANCY CANNOT BE EXCLUDED. RECOMMEND CORRELATION WITHCONTRAST-ENHANCED CT SOFT TISSUE NECK. ELECTRONICALLY SIGNED BY QUINTEN HUTCHINS MD ON 01/27/2017 9:06 AM us Candi Paredes APNP ULTRASOUND Final Res ult documented in this encounter Visit Diagnoses Not on filedocumented in this encounter
--- OUTSIDE RECORDS SUMMARY | 2024-04-27 18:27 | XMS_ITS | Encounter Summary ---
Author Organization [facility] Address [facility] [place] [address] [place] [address] Care Team Providers Care Manufacturing Operator Name Role Phone Unavailable Primary Care Provider Unavailabl e Encounter Details Date Type Department Care Team (Latest Contact Info) Description 12/03/2014 Abstract [facility] Medical [facility] Social History Tobacco Use Types Packs/Day Years Used Date Smoking Tobacco: Never Assessed Sex and Gender Information Value Date Recorded Sex Assigned at Not on file Legal Sex Male 6:22 PM CDT Gender Identity Not on file Sexual Orientation Straight 03/28/2018 4: 44 PM PROGRAM MEDICAL DIRECTOR documented as of this encounter Progress Notes * Kareen Troy Md, MD - 12/03/2014 9:39 AM CDT Message Recorded as Task Date: 12/03/2014 09:39 AM, Created By: Leana Johnson Task Name: Call Patient with results Assigned To: Leana Johnson Regarding Patient: Braden Trejo, Status: Active Comment: Leana Johnson - 03 Dec 2014 9:39 AM Patient Pt will need orth referral. Can we check with him if he has a preference Ivone Stokes - 03 Dec 2014 12:00 PM TASK EDITED pt informed and vocalized understanding. Signatures Electronically signed by : Ivone Stokes, ; Dec 03 2014 12:00PM PROGRAM MEDICAL DIRECTOR (Author) * NOHEMI Thurston - 12/03/2014 9:39 AM CDT Message Pt will need orth referral. Can we check with him if he has a preference Verified Results XR FOREARM 2 VIEW LT [id number] 08:43AM Leana Johnson Test Name Result Flag Reference XR FOREARM 2 VIEW LT (Report) BRADEN TREJO ORDERING MD: LEANA JOHNSON ACNP-BC ACCT: [id number] ADMIT/SERVICE DATE: 11/30/14 DISCHARGE DATE: : 1960 PT TYPE: REG CLI SEX: M ORD SITE: [facility] STUDY DATE REPORT # ORDER # EXT ORDER ID 11/30/14 [id number] PROCEDURE CODE PROCEDURE DESCRIPTION [id number] XR FOREARM 2 VIEW LT CHART DOCUMENT DIVISION OF RADIOLOGY ACCESSION # EXAM DATE EXAM DESCRIPTION [id number] 11/30/2014 XR FOREARM 2 VIEW LT IMAGING [...] BY AMAYA PEREIRA MD 12/01/2014 11:10 A MG/DJM 12/01/201408:43 A 12/01/2014 09:56 A JOB NO: [id number] DOC NO: [id number] CC: LEANA JOHNSON NP documented in this encounter Plan of Treatment Upcoming Encounters Date Type Department Care Team (Late st Contact Info) Description 06/09/2024 4:20 PM PROGRAM MEDICAL DIRECTOR Office Visit [facility] Medical Group Family & Internal Medicine [address] [phone] León Sanchez MD [address] [place] [id number] documented as of this encounter Visit Diagnoses Not on filedocumented in this encounter
--- OUTSIDE RECORDS SUMMARY | 2024-04-27 18:27 | XMS_ITS | Encounter Summary ---
Author Organization [facility] Address [facility] [facility] [place] [address] [place] [address] Care Team Providers Care Crop Duster Name Role Phone Unavailable Primary Care Provider Unavailabl e Encounter Details Date Type Department Care Team (Latest Contact Info) Description 04/21/2015 Abstract [facility] Medical Group Social History Tobacco Use Types Packs/Day Years Used Date Smoking Tobacco: Never Assessed Sex and Gender Information Value Date Recorded Sex Assigned at Not on file Legal Sex Male 6:22 PM CDT Gender Identity Not on file Sexual Orientation Straight 03/28/2018 4: [address] CONSTRUCTION INSPECTOR documented as of this encounter Plan of Treatment Upcoming Encounters Date Type Department Care Team (Late st Contact Info) Description 06/09/2024 4:[address] CONSTRUCTION INSPECTOR Office Visit [facility] Medical Group Family & Internal Medicine [facility] [address] [place] [address] [place] [address] [place] [address] documented as of this encounter Visit Diagnoses Not on filedocumented in this encounter
--- OUTSIDE RECORDS SUMMARY | 2024-04-27 18:27 | XMS_ITS | Encounter Summary ---
Author Organization [facility] Address [facility] [address] [place] [address] Care Team Providers Care Stabber Name Role Phone Unavailable Primary Care Provider Unavailabl e Encounter Details Date Type Department Care Team (Latest Contact Info) Description 06/29/2015 Abstract [facility] Medical Group Social History Tobacco Use Types Packs/Day Years Used Date Smoking Tobacco: Never Assessed Sex and Gender Information Value Date Recorded Sex Assigned at Not on file Legal Sex Male 6:22 PM CDT Gender Identity Not on file Sexual Orientation Straight 03/28/2018 4: 44 PM ARMY OFFICER documented as of this encounter Progress Notes * Kareen Troy Md, MD - 06/29/2015 11:05 AM CDT Message Recorded as Task Date: 06/27/2015 02:17 PM, Created By: System Task Name: Overdue Order Assigned To: Leana Johnson Regarding Patient: Sonny Singleton, Status: In Progress Comment: System - 27 Jun 2015 2:17 PM Overdue Order Ivone Stokes - 29 Jun 2015 10:49 AM TASK EDITED lvm for pt to return call. Ivone Stokes - 29 Jun 2015 10:49 AM TASK IN PROGRESS Ivone Cano - 29 Jun 2015 11:05 AM TASK EDITED pt informed. he states he will try to make it in for blood test this week. Signatures Electronically signed by : Ivone Cano MA; Jun 29 2015 11:06AM ARMY OFFICER (Author) documented in this encounter Plan of Treatment Upcoming Encounters Date Type Department Care Team (Late st Contact Info) Description 06/09/2024 4:20 PM ARMY OFFICER Office Visit [facility] Family & Internal Medicine [facility] [address] [place] [address] [place] [address] [place] [address] documented as of this encounter Visit Diagnoses Not on filedocumented in this encounter
--- OUTSIDE RECORDS SUMMARY | 2024-04-27 18:27 | XMS_ITS | Encounter Summary ---
Author Organization [facility] Address [address] [place] [address]. [place] [address] [place] [address] Care Team Providers Care Contact Lens Technician Name Role Phone Unavailable Primary Care Provider Unavailabl e Encounter Details Date Type Department Care Team (Latest Contact Info) Description 02/25/2015 Abstract [facility] Medical Group Leana Johnson APNP Social History Tobacco Use Types Packs/Day Years Used Date Smoking Tobacco: Never Assessed Sex and Gender Information Value Date Recorded Sex Assigned at Not on file Legal Sex Male 6:22 PM CDT Gender Identity Not on file Sexual Orientation Straight 03/28/2018 4: 44 PM MOLD FILLER AND DRAINER documented as of this encounter Plan of Treatment Upcoming Encounters Date Type Department Care Team (Late st Contact Info) Description 06/09/2024 4:20 PM MOLD FILLER AND DRAINER Office Visit [facility] Medical Group Family & Internal Medicine [facility] [address] [place] [address] León Sanchez [place] [phone] [place] [address] documented as of this encounter Procedures Procedure Name Priority Date/Time Associated Diagnosis Comments HEMOGLOBIN, GLYCOSYLATED Routine 02/25/2015 4:15 PM MOLD FILLER AND DRAINER documented in this encounter Results * (ABNORMAL) HEMOGLOBIN, GLYCOSYLATED (02/25/2015 4:15 PM MOLD FILLER AND DRAINER) HGB A1C 7.4(H) <5.7 % [facility] T O EPIC CONVERSION Comment: Result Comment: ?? INCREASED RISK OF DIABETES <5.7% ?NON-DIABETES 5.7-6.4% INCREASED RISK FOR FUTURE DIABETES > OR = 6.5 CONSISTENT WITH DIABETES ?? STANDARDS OF MEDICAL CARE IN DIABETES-2010 DIABETES CARE, 33(SUPP 1): S1-S61,2010 02/25/2015 4:15 PM MOLD FILLER AND DRAINER 02/25/2015 4:15 PM MOLD FILLER AND DRAINER Narrative [facility] TO EPIC CONVERSION - 02/26/2015 11:34 AM MOLD FILLER AND DRAINER Result Communication: Call patient with results us Leana [facility] Final Result [facility] TO EPIC CONVERSION documented in this encounter Visit Diagnoses Not on filedocumented in this encounter
--- OUTSIDE RECORDS SUMMARY | 2024-04-27 18:27 | XMS_ITS | Encounter Summary ---
Author Organization [facility] Address [facility] [place] [address] [place] [address] Care Team Providers Care Oil Well Directional Surveyor Name Role Phone Unavailable Primary Care Provider Unavailabl e Encounter Details Date Type Department Care Team (Late st Contact Info) Description 10/04/2016 Abstract [facility] Family & Internal Medicine [facility] [address] [place] [address] [place] [address] [place] [address] Social History Tobacco Use Types Packs/Day Years Used Date Smoking Tobacco: Never Assessed Sex and Gender Information Value Date Recorded Sex Assigned at Not on file Legal Sex Male 6:22 PM CDT Gender Identity Not on file Sexual Orientation Straight 03/28/2018 4: 44 PM ADJUNCT PHILOSOPHY FACULTY documented as of this encounter Last Filed Vital Signs Vital Sign Reading Time Taken Comments Blood Pressure 146/82 10/04/2016 3:54 PM CDT Pulse 93 10/04/2016 3:54 PM CDT Temperature - - Respiratory Rate - - Oxygen Saturation - - Inhaled Oxygen Concentration - - Weight 72.6 kg (160 lb) 10/04/2016 3:54 PM CDT Height 175.3 cm (5' 9 ) 10/04/2016 3:54 PM CDT Body Mass Index 23.63 10/04/2016 3:54 PM CDT documented in this encounter Progress Notes * NOHEMI Rhoades - 10/04/2016 4:00 PM CDT Chief Complaint Patient here for sinus congestion and cold symptoms that have been going on for about four days. History of Present Illness HPI Free Text: Sonny has been experiencing worsening sinus congestion, pressure, and cough for past 2 days. He has taken Delia Trenton cold/sinus but symptoms continue to worsen. Cold Symptoms: Sonny Singleton presents with complaints of cold symptoms. Associated symptoms include runny nose, post nasal drainage, sore throat, dry cough, facial pressure, headache, fatigue, weakness, fever and chills, but no nasal congestion, no scratchy throat, no hoarseness, no productive cough, no facial pain, no plugged ear(s), no ear pain, no swollen lymph nodes, no wheezing, no shortness of breath, no nausea, no vomiting and no diarrhea. Review of Systems Cardiovascular, Gastrointestinal and Neurological review of systems normal except as noted. Constitutional: fever, chills and feeling poorly. ENT: nasal discharge and sore throat (see HPI). Respiratory: cough, but no wheezing (see HPI). Active Problems 1. Dyslipidemia (272.4) (E78.5) 2. [...] MG TABS; TAKE 1 TABLET DAILY; Therapy: 57Elz1214 to (Evaluate:13Nci2446) Recorded 2. Invokana 300 MG Oral Tablet; Take 1 tablet daily; Therapy: 05Ynh2035 to (Evaluate:77Yqn2660) Requested for: 26Ilw1550; Last Rx:[id number] Ordered 3. Lisinopril 10 MG Oral Tablet; TAKE ONE TABLET BY MOUTH ONCE DAILY FOR BLOOD PRESSURE; Therapy: 00Xdl7648 to (Evaluate:35Eaj5196) Requested for: 22Bpw1973; Last Rx:[id number] Ordered 4. Loratadine 10 MG Oral Tablet; TAKE 1 TABLET DAILY NEEDED; Therapy: 17Wik2650 to (Evaluate:07Lwy7940); Last Rx:[id number] Ordered 5. MetFORMIN HCl - 500 MG Oral Tablet; TAKE TWO TABLETS BY MOUTH TWICE DAILY; Therapy: 29Jan2012 to (Evaluate:02Rdp0246) Requested for: 65Bwq8429; Last Rx:[id number] Ordered 6. Symbicort 80-4.5 MCG/ACT Inhalation Aerosol; INHALE 2 PUFFS TWICE DAILY. RINSE MOUTH AFTER USE; Therapy: 20Ibh8506 to (Last Rx:93Qzt5272) Ordered Allergies 1. Codeine Sulfate TABS 2. Darvocet-N 100 TABS Vitals Recorded: 04Oct2016 04:05PM Recorded: 04Oct2016 03:54PM Temperature 99.5 F, Oral Heart Rate 93 Respiration 16 Systolic 146 Diastolic 82 O2 Saturation 98 Height 5 ft 9 in Weight 160 lb BMI Calculated 23.63 BSA Calculated 1.88 Physical Exam Constitutional General appearance: Abnormal. acutely ill and chronically ill. Eyes Conjunctiva and lids: Abnormal. (right eye injected) Conjunctiva Findings: watery discharge bilaterally. Ears, Nose, Mouth, and Throat Otoscopic examination: Abnormal. The right tympanic membrane was red and was bulging. Oropharynx: Abnormal. (poor dentition) There was erythema of both tonsils. The posterior pharynx was erythematous and had an exudate. Pulmonary Respiratory effort: Abnormal. Respiratory Findings: dry cough and mouth breathing. Auscultation of lungs: Abnormal. Auscultation of the lungs revealed decreased breath sounds diffusely. no wheezing. Cardiovascular Auscultation of heart: Normal rate and rhythm, normal S1 and S2, without murmurs. Examination of extremities for edema and/or varicosities: Normal. Lymphatic Palpation of lymph nodes in neck: No lymphadenopathy. Psychiatric Orientation to person, place and time: Normal. Mood and affect: Normal. Counseling The patient was counseled regarding instructions for management, risk factor reductions, patient and family education, risks and benefits of treatment options and importance of compliance with treatment. Assessment 1. Sinusitis, acute (461.9) (J01.90) Plan Sinusitis, acute 1. Amoxicillin-Pot Clavulanate 875-125 MG Oral Tablet; Take one tablet twice daily for 7 days Rx By: Prudence Paredes; Dispense: 7 Days ; #:14 Tablet; Refill: 0; For: Sinusitis, acute; MICHEL = N; Verified Transmission to [facility]; Last Updated By: Corinne Morgan; 10/04/2016 4:45:00 PM 2. Kenalog 40 MG/ML Injection Suspension (Triamcinolone Acetonide) Rx By: Prudence Paredes; For: Sinusitis, acute; Dose of 1 ML; Intramuscular; MICHEL = N; Administered by: Ivone Bergman MA: 10/04/2016 4:51:00 PM; Last Updated By: Ivone Bergman; 10/04/2016 4:52:35 PM Formulary Override Reason: No Formulary Equivalent Exists 3. Apply warm moist compresses to the affected area 3 times a day for 5 minutes.; Status:Complete; Done: 04Oct2016 Ordered; For:Sinusitis, acute; Ordered By:Prudence Paredes; 4. Drink at least 6 glasses of water or juice a day.; Status:Complete; Done: 04Oct2016 Ordered; For:Sinusitis, acute; Ordered By:Prudence Paredes; 5. Irrigate your nose twice a day.; Status:Complete; Done: 04Oct2016 Ordered; For:Sinusitis, acute; Ordered By:Prudence Paredes; 6. Pre-printed Instructions given to patient; Status:Complete; Done: 04Oct2016 Ordered; For:Sinusitis, acute; Ordered By:Prudence Paredes; 7. Status:Complete; Done: 04Oct2016 Ordered; For:Sinusitis, acute; Ordered By:Prudence Paredes; 8. Taking a hot steamy shower may help your condition.; Status:Complete; Done: 04Oct2016 Ordered; For:Sinusitis, acute; Ordered By:Prudence Paredes; Take antibiotic as directed and with food. Take all of medicine. Keep water intake high. Take Tylenol as needed and as directed on package for body aches and fever. Return to office if symptoms worsen or do not improve. Discussion/Summary Risks/benefits/side effects of medication discussed. Sonny stated understanding to all instructions and agreement to plan. Signatures Electronically signed by : Prudence Paredes APN; Oct 05 2016 7:54AM ADJUNCT PHILOSOPHY FACULTY (Author) documented in this encounter Plan of Treatment Upcoming Encounters Date Type Department Care Team (Late st Contact Info) Description 06/09/2024 4:20 PM ADJUNCT PHILOSOPHY FACULTY Office Visit [facility] Family & Internal Medicine [facility] [address] [place] [phone] León [place] [id number] [place] [address] documented as of this encounter Visit Diagnoses Not on filedocumented in this encounter
--- OUTSIDE RECORDS SUMMARY | 2024-04-27 18:27 | XMS_ITS | Encounter Summary ---
Author Organization [facility] Address [facility] [address] [place] [address] Care Team Providers Care Soil Chemist Name Role Phone Unavailable Primary Care Provider Unavailabl e Encounter Details Date Type Department Care Team (Latest Contact Info) Description 01/27/2014 Abstract [facility] Social History Tobacco Use Types Packs/Day Years Used Date Smoking Tobacco: Never Assessed Sex and Gender Information Value Date Recorded Sex Assigned at Not on file Legal Sex Male 6:22 PM CDT Gender Identity Not on file Sexual Orientation Straight 03/28/2018 4: 44 PM ANALYTICS MANAGER documented as of this encounter Progress Notes * Generic Conversion MD Javier - 01/27/2014 1:56 PM CDT Message Recorded as Task Date: 01/26/2014 09:43 AM, Created By: Ivone Stokes Task Name: Call Back Assigned To: Ivone Stokes Regarding Patient: Sonny Singleton D, Status: Active Comment: Ivone Stokes - 26 Jan 2014 9:43 AM TASK CREATED have you found out any information on Psoriatic arthritis testing for Omar? he was asking. Leana Johnson - 26 Jan 2014 2:27 PM TASK REPLIED TO: Previously Assigned To Leana Johnson That would involve a Rheumatology consult. If he is interested we can proceed in that direction Ivone Stokes - 27 Jan 2014 1:56 PM TASK EDITED informed pt that we can proceed with Rheumatology consult if he is interested. pt vocalized understanding. pt decided to wait for referral, he wants to discuss further with Leana. pt states he takes 2extra strength tylenol arthritis daily and is doing well with that. Signatures Electronically signed by : Ivone Stokes, ; Jan 27 2014 1:56PM ANALYTICS MANAGER (Author) documented in this encounter Plan of Treatment Upcoming Encounters Date Type Department Care Team (Late st Contact Info) Description 06/09/2024 4:20 PM ANALYTICS MANAGER Office Visit [facility] Family & Internal Medicine [facility] [phone] [place] [phone] León [place] [id number] [place] [address] documented as of this encounter Visit Diagnoses Not on filedocumented in this encounter
--- OUTSIDE RECORDS SUMMARY | 2024-04-27 18:27 | XMS_ITS | Encounter Summary ---
Author Organization [facility] Address [facility] [place] [address] [place] [address] Care Team Providers Care Assembler Unit Name Role Phone Unavailable Primary Care Provider Unavailabl e Encounter Details Date Type Department Care Team (Latest Contact Info) Description 03/02/2016 Abstract [facility] Social History Tobacco Use Types Packs/Day Years Used Date Smoking Tobacco: Never Assessed Sex and Gender Information Value Date Recorded Sex Assigned at Not on file Legal Sex Male 6:22 PM CDT Gender Identity Not on file Sexual Orientation Straight 03/28/2018 4: 44 PM OCEANOLOGIST documented as of this encounter Progress Notes * NOHEMI Thurston - 03/02/2016 9:39 AM CST Verified Results *A1C In Office [id number] 04:07PM Leana Johnson Test Name Result Flag Reference A1C 8.7 A 4.2 - 6.5 % HbA1C documented in this encounter Plan of Treatment Upcoming Encounters Date Type Department Care Team (Late st Contact Info) Description 06/09/2024 4:20 PM OCEANOLOGIST Office Visit [facility] Family & Internal Medicine [facility] [address] [place] [phone] [place] [address] [place] [address] documented as of this encounter Visit Diagnoses Not on filedocumented in this encounter
--- OUTSIDE RECORDS SUMMARY | 2024-04-27 18:27 | XMS_ITS | Encounter Summary ---
Author Organization [facility] Address [facility] [place] [address] [place] [address] Care Team Providers Care Auditor Supervisor Name Role Phone Unavailable Primary Care Provider Unavailabl e Encounter Details Date Type Department Care Team (Latest Contact Info) Description 02/10/2017 Abstract [facility] Candi Paredes APNP [address] [address] Social History Tobacco Use Types Packs/Day Years Used Date Smoking Tobacco: Never Assessed Sex and Gender Information Value Date Recorded Sex Assigned at Not on file Legal Sex Male 6:22 PM CDT Gender Identity Not on file Sexual Orientation Straight 03/28/2018 4: 44 PM 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 documented as of this encounter Plan of Treatment Upcoming Encounters Date Type Department Care Team (Late st Contact Info) Description 06/09/2024 4:20 PM 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 Office Visit [facility] Medical [facility] Family & Internal Medicine [facility] [address] [place] [phone] León Sanchez MD [address] [place] [address] documented as of this encounter Procedures Procedure Name Priority Date/Time Associated Diagnosis Comments CT GENERIC Routine 02/10/2017 9:46 AM CDT documented in this encounter Results * CT GENERIC (02/10/2017 9:46 AM CDT) Anatomical Region Laterality Modality Other 02/10/2017 9:46 AM CDT 02/10/2017 9:46 AM CDT Narrative 02/10/2017 9:52 AM CDT BRADEN TREJO ? ADMIT/SERVICE DATE: 02/10/17 ?? ACCT: [id number] ?DISCHARGE DATE: ?? : 1960 ??SEX: M ?ORD SITE: [facility] ?? PT TYPE: REG CLI ? ORDERING MD: CANDI PAREDES ? STUDY DATE ? REPORT # ?ORDER # ? EXT ORDER ID ?? 02/10/17 ? [id number] ? [id number] ?[id number] ? PROC CODE: ? NCKSTWC ? PROCEDURE DESCRIPTION: ?? CT NECK SOFT TISSUE W ? ADDENDUM #1 ?? ADDENDUM: ??FINDINGS DISCUSSED WITH DR. QUISPE AT 9:45 AM FEBRUARY 10. ALSO, THE LESION AMENABLE TO DIRECT VISUALIZATION IS THE SMALLER 2.1 X 2.1 X 2.0 CM HYPOPHARYNGEAL MASS WHICH APPEARS TO BE MUCOSAL OR SUBMUCOSAL. ? ELECTRONICALLY SIGNED BY REGI MARQUEZ MD ON 02/10/2017 9:48 AM ORIGINAL REPORT ?? TECHNIQUE: IV CONTRAST ENHANCED SOFT TISSUE NECK CT PERFORMED. PATIENT ADMINISTERED 75 ML ISOVUE- 370 IODINATED INTRAVENOUS CONTRAST. ? INDICATION: REPORTED 10.7 X 2.4 X 3.3 CM MIXED SOLID AND CYSTIC MASS IN THE LEFT SIDE OF THE NECK SEEN ON SOFT TISSUE ULTRASOUND PERFORMED JANUARY 27, 2017. ? REPORT: A LARGE COMPLEX MIXED CYSTIC AND [...] WELL SUBMANDIBULAR AND SUPRACLAVICULAR LYMPH NODES PRESENT. ? A LEFT ANTEROLATERAL HYPOPHARYNGEAL SOLID MASS IS [...] INTRACRANIAL CONTENTS AND UPPER CHEST APPEAR NORMAL. ? IMPRESSION: SUSPICIOUS 2.1 X 2.1 X 2.0 CM SOFT TISSUE MASS IN THE LEFT ANTEROLATERAL HYPOPHARYNGEAL REGION ALONG WITH COMPLEX CYSTIC MASS IMMEDIATELY MEDIAL TO THE LEFT STERNOCLEIDOMASTOID MUSCLE. THIS LESION SHOULD BE AMENABLE TO DIRECT VISUALIZATION VIA ENDOSCOPY. THE LARGEST FLUID POCKET WITHIN THE LARGER MASS MEASURES 3.1 X 2.9 X 2.4 CM IF ASPIRATION IS INDICATED. ??ENT CONSULTATION RECOMMENDED FOR ADDITIONAL EVALUATION OF THE HYPOPHARYNGEAL MASS. ? ELECTRONICALLY SIGNED BY REGI MARQUEZ MD ON 02/10/2017 9:11 AM ? Procedure Note Kareen Herrera MD - 02/06/2018 BRADEN TREJO ADMIT/SERVICE DATE:02/10/17 ACCT: [id number] DISCHARGE DATE: : 1960 SEX: M ORD [facility]: [facility] PT TYPE: REG CLI ORDERING MD:CANDI PRAEDES STUDY DATE REPORT # ORDER # EXT ORDER ID 02/10/17 [id number] PROC CODE: [id number] PROCEDURE DESCRIPTION: CT NECK SOFT TISSUE W ADDENDUM #1 ADDENDUM: FINDINGS DISCUSSED WITH DR. QUISPE AT 9:45 AM FEBRUARY 10.ALSO, THE LESION AMENABLE TO DIRECT VISUALIZATION IS THE SMALLER 2.1 X 2.1 X 2.0 CM HYPOPHARYNGEALMASS WHICH APPEARS TO BE MUCOSAL OR SUBMUCOSAL. ELECTRONICALLY SIGNED BY REGI MARQUEZ MD ON 02/10/2017 9:48 AMORIGINAL REPORT TECHNIQUE: IV CONTRAST ENHANCED SOFT TISSUE NECK CT PERFORMED. PATIENTADMINISTERED 75 ML ISOVUE- 370 IODINATED INTRAVENOUS CONTRAST. INDICATION: REPORTED 10.7 X 2.4 X 3.3 CM MIXED SOLID AND CYSTIC MASS INTHE LEFT SIDE OF THE NECK SEEN ON SOFT TISSUE ULTRASOUND PERFORMED JANUARY 27, 2017. REPORT: A LARGE COMPLEX MIXED CYSTIC AND SOLID MASS IS PRESENT ALONG THELEFT MARGIN OF THE NECK IMMEDIATELY MEDIAL TO THE STERNOCLEIDOMASTOID MASTOID MUSCLE EXTENDINGFROM JUST INFERIOR TO THE LEFT MASTOID BONE AND EXTENDING CAUDALLY ALONG AND PARALLEL TO THESTERNOCLEIDOMASTOID MUSCLE DOWN TO JUST ABOVE THE LEFT CLAVICULAR HEAD. DIMENSIONS ARE SIMILAR REPORTEDON THE RECENT ULTRASOUND , APPROXIMATELY 10 X 3 X 3 CM WITH MULTIPLE CYSTIC COMPONENTS. THE LARGESTCYSTIC COMPONENT MEASURES 3.1 X 2.9 X 2.4 CM AND IS LOCATED AT THE LEVEL OF THE [id number] BODY AT THE HYPOPHARYNGEAL LEVEL. THE MASS DISPLACES THE CAROTID AND JUGULARSTRUCTURES IN THE MEDIAL AND ANTERIOR DIRECTION. DISTORTION OF THE LEFT PARAPHARYNGEAL FAT PLANEPOSTERIORLY IS PRESENT. NONPATHOLOGIC SIZE BILATERAL JUGULODIGASTRIC AND POSTERIOR TRIANGLE ASWELL SUBMANDIBULAR AND SUPRACLAVICULAR LYMPH NODES PRESENT. A LEFT ANTEROLATERAL HYPOPHARYNGEAL SOLID MASS IS PRESENT WHICH MEASURESAPPROXIMATELY 2.1 X 2.1 X 2.0 CM. THE RETROPHARYNGEAL AND RIGHT PARAPHARYNGEAL SPACES APPEAR NORMAL.THE FOSSAE OF ROSENMULLER APPEAR NORMAL. THE LEFT JUGULAR VEIN IS SIGNIFICANTLYCOMPRESSED BUT APPEARS PATENT THROUGH THE SUPERIOR VENA CAVA. THE THYROID APPEARS NORMAL. OTHER THANDEGENERATIVE CHANGES, THE BONES APPEAR NORMAL. VISUALIZED INTRACRANIAL CONTENTS AND UPPER CHESTAPPEAR NORMAL. IMPRESSION: SUSPICIOUS 2.1 X 2.1 X 2.0 CM SOFT TISSUE MASS IN THE LEFTANTEROLATERAL HYPOPHARYNGEAL REGION ALONG WITH COMPLEX CYSTIC MASS IMMEDIATELY MEDIAL TOTHE LEFT STERNOCLEIDOMASTOID MUSCLE. THIS LESION SHOULD BE AMENABLE TO DIRECTVISUALIZATION VIA ENDOSCOPY. THE LARGEST FLUID POCKET WITHIN THE LARGER MASS MEASURES 3.1 X 2.9 X 2.4CM IF ASPIRATION IS INDICATED. ENT CONSULTATION RECOMMENDED FOR ADDITIONAL EVALUATION OF THEHYPOPHARYNGEAL MASS. ELECTRONICALLY SIGNED BY REGI MARQUEZ MD ON 02/10/2017 9:11 AM us León Sanchez MD SCANNING Final Resul t documented in this encounter Visit Diagnoses Not on filedocumented in this encounter
--- OUTSIDE RECORDS SUMMARY | 2024-04-27 18:27 | XMS_ITS | Encounter Summary ---
Author Organization [facility] Address [facility] 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 Ultrasound shows a calcified mass over the carotid artery. Unclear of etiology at this point and malignancy is still a possibility. Recommend a CT of the neck to get a better picture. Would like to know that he has an appointment with ENT. Order for CT scan placed. Thank you Deepthi Hernandez - 30 Jan 2017 4:02 PM TASK EDITED Attempted to call patient, number has been disconnected or out of service. Deepthi Hernandez - 30 Jan 2017 4:02 PM TASK IN PROGRESS Deepthi Hernandez - 30 Jan 2017 4:15 PM TASK EDITED Letter sent to patient. Lesly Lovett - 31 Jan 2017 10:45 AM TASK EDITED pt was given message. He v/u. I also gave him the # to the ENT if they did not call him. Rosa Serrato - 31 Jan 2017 11:00 AM TASK EDITED Pt has apt with Dr. Becerril (ENT) on 02/15/17. Signatures Electronically signed by : Deepthi Hernandez L.P.N.; Feb 01 2017 1:17PM OPTICAL LENS MANUFACTURING TECH (Author) * NOHEMI Rhoades - 01/30/2017 3:45 PM CDT Message Has Omar recieved the call to schedule with ENT? Ultrasound shows a calcified mass over the carotid artery. Unclear of etiology at this point and malignancy is still a possibility. Recommend a CT of the neck to get a better picture. Would like to know that he has an appointment with ENT. Order for CT scan placed. Thank you Verified Results US SOFT TISSUE HEAD/NECK 27Jan2017 09:03AM Candi Paredes Test Name Result Flag Reference US SOFT TISSUE HEAD/NECK (Report) BRADEN TREJO ADMIT/SERVICE DATE: 01/27/17 ACCT: [id number] DISCHARGE DATE: : 1960 SEX: M [facility]D SITE: [facility] PT TYPE: REG CLI ORDERING MD: CANDI PAREDES ANP STUDY DATE REPORT # ORDER # EXT ORDER ID 01/27/17 [id number] PROC CODE: SFTS-HD/NK PROCEDURE DESCRIPTION: US SOFT TISSUE HEAD NECK IMAGING STUDIES:US SOFT TISSUE HEAD NECK DATE: 01/27/2017 8:15 AM INDICATION: OTHER - US-HEAD AND NECK US FOR NONPALABLE NECK MASS COMPARISON: NO COMPARISONS. TECHNIQUE: EXAMINATION PERFORMED BY HEALTH AND WELLNESS MANAGER USING GRAYSCALE WITH COLOR FLOW AND SPECTRAL DOPPLER. SELECTED IMAGES SUBMITTED FOR INTERPRETATION. WORKSHEET COMPLETED. IMPRESSION: THERE IS A VERY LARGE PARTIALLY SOLID PARTIALLY CYSTIC MASS PRESENT WITHIN THE LEFT NECK PARALLEL TO THE CAROTID VASCULATURE MEASURING APPROXIMATELY 10.7 X 2.4 X 3.3 CM. THIS MASS IS NONSPECIFIC. MALIGNANCY CANNOT BE EXCLUDED. RECOMMEND CORRELATION WITH CONTRAST-ENHANCED CT SOFT TISSUE NECK. ELECTRONICALLY SIGNED BY QUINTEN HUTCHINS MD ON 01/27/2017 9:06 AM Plan Palpable mass of neck ?? CT NECK SFT TISSUE W; Status:Need Information - Financial Authorization; Requested for:[id number]; Palpable mass of neck, SocHx: Smokeless tobacco use ?? Otolaryngology Referral Outpatient For: SocHx: Smokeless tobacco use For: Palpable mass of neck Patient with long history of chewing tobacco use. Resulting in very poor dentition. Now with jorden gums. Please evaluate. He reports he has seen ENT in past. Also of concern is a fixed, hard, painless nodule on left side of neck. Have ordered CT of soft tissue neck with contrast. Awaiting results. Please evaluate. Thank you. Status: Need Information - Financial Authorization Requested for: [id number] documented in this encounter Miscellaneous Notes * Letter - Kareen Troy Md, MD - 01/30/2017 3:45 PM CDT Dear Braden, Attempted to call [phone], but keep getting disconnected or out of service. Sending you this letter with a message from Candi MALDONADO. Ultrasound shows a calcified mass over the carotid artery. Unclear of etiology at this point and malignancy is still a possibility. Recommend a CT scan of the neck to get a better picture. CT scan has been ordered, will await approval from insurance company. Also ordered a referral to an ENT doctor. Can you call the office @ [phone] and let us know youhave received this letter and a phone number where we can reach you, to give you information. Mykel Electronically signed by:Deepthi Hernandez L.P.N. Jan 30 2017 4:14PM OPTICAL LENS MANUFACTURING TECH documented in this encounter Plan of Treatment Upcoming Encounters Date Type Department Care Team (Late st Contact Info) Description 06/09/2024 4:20 PM OPTICAL LENS MANUFACTURING TECH Office Visit [facility] Family & Internal Medicine [address] [address] [place] [address] [place] [address] documented as of this encounter Visit Diagnoses Not on filedocumented in this encounter
--- OUTSIDE RECORDS SUMMARY | 2024-04-27 18:27 | XMS_ITS | Encounter Summary ---
Author Organization [facility] Address [address] [place] [address]. [place] [address] [place] [address] Care Team Providers Care Hoop Maker Name Role Phone Unavailable Primary Care Provider Unavailabl e Encounter Details Date Type Department Care Team (Late st Contact Info) Description 07/20/[address] 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 documented as of this encounter Last Filed Vital Signs Vital Sign Reading Time Taken Comments Blood Pressure 122/76 07/20/2016 3:51 PM CDT Pulse 79 07/20/2016 3:51 PM CDT Temperature - - Respiratory Rate - - Oxygen Saturation - - Inhaled Oxygen Concentration - - Weight 74.7 kg (164 lb 9.6 oz) 07/20/2016 3:51 P M CDT Height 175.3 cm (5' 9 ) 07/20/2016 3:51 PM CDT Body Mass Index 24.31 07/20/2016 3:51 PM CDT documented in this encounter Progress Notes * Generic Conversion MD Javier - 07/20/2016 8:49 AM CDT Message Recorded as Task Date: 07/17/2016 08:39 AM, Created By: Pina Guidry Task Name: Renew Medication Assigned To: [facility] Nurse Team Regarding Patient: Sonny Singleton, Status: In Progress Comment: Pina Guidry - 17 Jul 2016 8:39 AM TASK CREATED Pt is calling for a prescription for the Invokana, he is hoping that they will still honor the offer that he received to get the medication for free for a year. Please follow up with pt, he is at work and available after 3:20 at the number listed in the chart. Okay to leave a detailed message on voicemail. Pina Guidry - 18 Jul 2016 9:51 AM TASK EDITED pt's called this am regarding the pt's Invokana, please follow up with pt. Ivone Stokes - 18 Jul 2016 4:48 PM TASK EDITED spoke with Omar, he stated [employer] sent him a ketter stating they would cover med for a year. i sent script to local pharmacy, he will see ho wmuch it is then mention to them about letter he received. pt to call with any problems. Ivone Stokes - 18 Jul 2016 4:48 PM TASK IN PROGRESS Signatures Electronically signed by : Ivone Stokes MA; Jul 20 2016 8:49AM FELT WASHING MACHINE TENDER (Author) documented in this encounter Plan of Treatment Upcoming Encounters Date Type Department Care Team (Late st Contact Info) Description 06/09/2024 4:20 PM FELT WASHING MACHINE TENDER Office Visit [facility] Family & Internal Medicine - [place] [address] [place] [address] León Sanchez MD [address] [place] [address] documented as of this encounter Visit Diagnoses Not on filedocumented in this encounter
--- OUTSIDE RECORDS SUMMARY | 2024-04-27 18:27 | XMS_ITS | Encounter Summary ---
Author Organization [facility] Address [facility] 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 HgA1c in 3 months with appointment required. Ivone Stokes - 04 May 2014 10:33 AM TASK EDITED pt asking about Invokana. pt stated he was told to d/c Glimperide and start Invokana, but has not heard anything yet. Ivone Stokes - 04 May 2014 10:34 AM TASK EDITED can leave a message. Ivone Stokes - 04 May 2014 10:35 AM TASK EDITED pt informed of increased HbA1c and need to start taking meds properly, watching his diet and increasing his exercise. pt vocalized understanding and stated he is ready to start listening and taking meds properly. pt requesting call back for clarification of which meds to be taking. Ivone Stokes - 04 May 2014 10:35 AM TASK IN PROGRESS GregorioalexjayIvone - 04 May 2014 3:06 PM TASK EDITED lvm per pt request. pt instructed to d/c Glimperide and start Invokana 100mg daily 30 minutes before first meal of the day. eat 3 well balanced meals daily. check blood sugar daily. pt informed thereis a 30 day supply of medication at [facility] on 3rd floor and a discount card. pt to call with any questions. Plan 1. Start: Invokana 100 MG Oral Tablet; TAKE ONE TABLET BY MOUTH DAILY 2. Hemoglobin A1C ( HA1C ) Status: Hold For - Manual Activation Requested for: 29Jul2014 Signatures Electronically signed by : Ivone Stokes, ; May 04 2014 3:06PM SCHOOL BUS DRIVER/TEACHER ASSISTANT (Author) * NOHEMI Thurston - 05/04/2014 8:36 AM CST Message Pt needs to return to diet and compliance with medications. HgA1c in 3 months with appointment required. Verified Results Hemoglobin A1C ( HA1C ) 30Apr2014 04:19PM Leana Johnson Test Name Result Flag Reference Hemoglobin A1c 9.1 % H <5.7 INCREASED RISK OF DIABETES <5.7% NON-DIABETES 5.7-6.4% INCREASED RISK FOR FUTURE DIABETES > OR = 6.5 CONSISTENT WITH DIABETES STANDARDS OF MEDICAL CARE IN DIABETES-2010 DIABETES CARE, 33(SUPP 1): S1-S61,2009 documented in this encounter Plan of Treatment Upcoming Encounters Date Type Department Care Team (Late st Contact Info) Description 06/09/2024 4:20 PM SCHOOL BUS DRIVER/TEACHER ASSISTANT Office Visit [facility] Family & Internal Medicine - [address] [address] León Sanchez MD [address] [place] [address] documented as of this encounter Visit Diagnoses Not on filedocumented in this encounter
--- OUTSIDE RECORDS SUMMARY | 2024-04-27 18:27 | XMS_ITS | Encounter Summary ---
Author Organization [facility] Address [facility] [facility] 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 Nurse Team Regarding Patient: Sonny Singleton, Status: Active Comment: Giuliana Davis - 28 Apr 2015 10:04 AM TASK CREATED Caller: Self; Pt states that he was seen by Leana and was given a zpak for his congestion and he states that it isbetter but he has a lot of rattling around in his chest still and wants to know if he can get another round of abx or if he needs to come back to the office. Dionicio uses [facility] in [place]. vIone Stokes - 29 Apr 2015 1:04 PM TASK EDITED per Leana castro to fill Zpak Ivone Stokes - 29 Apr 2015 1:18 PM TASK EDITED lvm for pt to return call. Ivone Stokes - 29 Apr 2015 1:18 PM TASK IN PROGRESS Ivone Stokes - 29 Apr 2015 1:19 PM TASK EDITED script sent to [facility]. Ivone Stokes - 30 Apr 2015 10:54 AM TASK EDITED called pt no answer. Ivone Stokes - 03 May 2015 9:58 AM TASK EDITED lvm at [phone] for Vicky to return my call. Giuliana Davis - 03 May 2015 2:46 PM TASK EDITED Dionicio returned the call and stated that he got the medication that he needed. Signatures Electronically signed by : Ivone Stokes MA; May 03 2015 3:50PM FOOD PREP WORKER (Author) documented in this encounter Plan of Treatment Upcoming Encounters Date Type Department Care Team (Late st Contact Info) Description 06/09/2024 4:20 PM FOOD PREP WORKER Office Visit [facility] Family & Internal Medicine - [place] [address] [place] [address] [place] [address] [place] [address] documented as of this encounter Visit Diagnoses Not on filedocumented in this encounter
--- OUTSIDE RECORDS SUMMARY | 2024-04-27 18:27 | XMS_ITS | Encounter Summary ---
Author Organization [facility] Address [facility] [place] [address] [place] [address] Care Team Providers Care Head Mva Reactor Operator Name Role Phone Unavailable Primary Care Provider Unavailabl e Encounter Details Date Type Department Care Team (Late st Contact Info) Description 01/03/2016 Abstract [facility] Family & Internal Medicine [facility] [address] [place] [address] [place] [address] [place], [place] [id number] Social History Tobacco Use Types Packs/Day Years Used Date Smoking Tobacco: Never Assessed Sex and Gender Information Value Date Recorded Sex Assigned at Not on file Legal Sex Male 6:22 PM CDT Gender Identity Not on file Sexual Orientation Straight 03/28/2018 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 History of Abdominal [...] MG TABS; TAKE 1 TABLET DAILY; Therapy: 92Hgm6331 to (Evaluate:20Tjw7782) Recorded 2. Invokana 300 MG Oral Tablet; TAKE ONE TABLET BY MOUTH ONCE DAILY; Therapy: 45Bkq9579 to (Evaluate:07Tpq8108) Requested for: 33Hqk2395; Last Rx:[id number] Ordered 3. Lisinopril 10 MG Oral Tablet; TAKE ONE TABLET BY MOUTH ONCE DAILY FOR BLOOD PRESSURE; Therapy: 86Ets2030 to (Evaluate:92Cca1510) Requested for: 80Ong8307; Last Rx:[id number] Ordered 4. MetFORMIN HCl - 500 MG Oral Tablet; TAKE TWO TABLETS BY MOUTH TWICE DAILY; Therapy: 78Mpc4104 to (Evaluate:37Bnd4992) Requested for: 25Gkg7697; Last Rx:[id number] Ordered Allergies 1. Codeine Sulfate TABS 2. [...] pt tolerated the procedure well Assessment 1. Right knee pain (719.46) (M25.561) Plan Right knee pain 1. Kenalog 40 MG/ML Injection Suspension (Triamcinolone Acetonide) Rx By: León Sanchez; For: Right knee pain; Dose of 1 ML; Intra-articular; MICHEL = N; Administeredby: Ashlee Jennings R.N.: 01/03/2016 5:04:00 PM; Last Updated By: Ashlee Jennings; 01/03/2016 5:04:55 PM Formulary Override Reason: No Formulary Equivalent Exists 1) right knee pain: He has been to ortho and eventually will need a total knee replacement until then will continue steroid injections he last was a year ago and they help advised to consider every 3-6 months Signatures Electronically signed by : León Sanchez M.D.; Jan 03 2016 6:49PM LANDSCAPING AND GROUNDSKEEPING LABORER (Author) documented in this encounter Plan of Treatment Upcoming Encounters Date Type Department Care Team (Late st Contact Info) Description 06/09/2024 4:20 PM LANDSCAPING AND GROUNDSKEEPING LABORER Office Visit [facility] Family & Internal Medicine [facility] [address] [place] [address] León Sanchez [place] [id number] [place] [address] documented as of this encounter Visit Diagnoses Not on filedocumented in this encounter
--- OUTSIDE RECORDS SUMMARY | 2024-04-27 18:27 | XMS_ITS | Encounter Summary ---
Author Organization [facility] Address [address] [place] [address]. [place] [address] [place] [address] Care Team Providers Care Return To Factory Clerk Name Role Phone León Sanchez MD Primary Care Provider [phone]- [phone] Encounter Details Date Type Department Care Team (Late Contact Info) Description 03/05/[address] 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 documented as of this encounter Plan of Treatment Upcoming Encounters Date Type Department Care Team (Late Contact Info) Description 06/09/2024 4:20 PM SENIOR ORACLE DEVELOPER Office Visit [facility] Family & Internal Medicine [facility] [address] [place] [address] [place] [address] [place], [place] [id number] documented as of this encounter Visit Diagnoses Diagnosis Chronic sinusitis Unspecified sinusitis (chronic) documented in this encounter Care Teams Return To Factory Clerk Relationship Specialty Start Date [place] [address] [place] [address] PCP - General FAMILY PRACTICE 02/27/18 documented as of this encounter
--- OUTSIDE RECORDS SUMMARY | 2024-04-27 18:27 | XMS_ITS | Encounter Summary ---
Author Organization [facility] Address [address] [place] [address]. [place] [address] [place] [address] Care Team Providers Care Wash Driller Helper Name Role Phone Unavailable Primary Care Provider Unavailabl e Encounter Details Date Type Department Care Team (Late st Contact Info) Description 12/11/2014 Abstract [facility] Family & Internal Medicine [facility] [address] [place] [address] [place] [address] [place], [place] [id number] Social History Tobacco Use Types Packs/Day Years Used Date Smoking Tobacco: Never Assessed Sex and Gender Information Value Date Recorded Sex Assigned at Not on file Legal Sex Male 6:22 PM CDT Gender Identity Not on file Sexual Orientation Straight 03/28/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 Pt did have x ray done on 12/01. History of Present Illness Wrist Pain: The patient is being seen for an initial evaluation of an existing diagnosis of wrist pain. Symptoms: wrist pain, wrist tenderness, hand numbness and hand weakness, but no wrist bruising,no wrist swelling, no wrist redness, no wrist warmth, no wrist crepitation, no wrist stiffness and no decreased wrist range of motion. The patient is currently experiencing symptoms. Associated symptoms: no fever, no chills, no rash and no pain in other joints. Review of Systems See HPI for pertinent positives. Constitutional: no fever, no chills and no recent weight loss. Cardiovascular: no intermittent leg claudication, no palpitations and no lower extremity edema. Integumentary: no skin lesions and no skin rash. Musculoskeletal: limb pain and joint stiffness, but no arthralgias, no joint swelling, no joint pain and no limb swelling. Neurological: no limb weakness. Psychiatric: Normal. Active Problems 1. Diabetes mellitus (250.00) (E11.9) 2. Dyslipidemia (272.4) (E78.5) 3. Hypertension (401.9) (I10) 4. Hypogonadism, testicular (257.2) (E29.1) 5. Left forearm pain (729.5) (M79.632) 6. Type 2 diabetes mellitus (250.00) (E11.9) [...] Oral Tablet; TAKE 1 TABLET DAILY; Therapy: 63Efs5352 to (Evaluate:91Pvw5785) Recorded 2. Clobetasol Propionate E 0.05 % External Cream; APPLY SPARINGLY AND GENTLY MASSAGE INTO AFFECTED AREA(S) TWICE DAILY, use for up to two weeks at a time; Therapy: 74Yzv1535 to (Last Rx:[id number]) Requested for: 13Kvx2796 Ordered 3. Invokana 300 MG Oral Tablet; Take 1 tablet daily; Therapy: 18Sep2014 to (Evaluate:20Apr2015) Requested for: 02Tam8039; Last Rx:[id number] Ordered 4. Lisinopril 10 MG Oral Tablet; TAKE ONE TABLET BY MOUTH ONCE DAILY FOR BLOOD PRESSURE; Therapy: 12Fwz5494 to (Evaluate:20Afn6745) Requested for: 68Rzr6294; Last Rx:[id number] Ordered 5. MetFORMIN HCl - 500 MG Oral Tablet; TAKE TWO TABLETS BY MOUTH TWICE DAILY; Therapy: 29Jan2012 to (Evaluate:63Ngp2241) Requested for: 43Sts3900; Last Rx:[id number] Ordered Allergies 1. Codeine Sulfate TABS 2. Darvocet-N 100 TABS Vitals Recorded: 00Ieg5511 04:18PM Heart Rate 88 Respiration 16 Blood Pressure 78 mm Hg 126 mm Hg O2 Saturation 99 Height 5 ft 9 in Weight 161 lb BMI Calculated 23.78 kg/m2 BSA Calculated 1.88 m2 Physical Exam Constitutional General appearance: No acute distress, well appearing and well nourished. Eyes Conjunctiva and lids: No swelling, erythema, or discharge. Pupils and irises: Equal, round and reactive to light. Pulmonary Auscultation of lungs: Clear to auscultation. Cardiovascular Examination of extremities for edema and/or varicosities: [...] 1. Left forearm pain (729.5) (M79.632) Plan 1) Left forearm pain: xrays taken were normal and will order a EMG to rule out any median or ulnar entrapment and for now continue with NSAID and advised to consider wearing brace and will follow up after the test is complete Signatures Electronically signed by : León Sanchez M.D.; Dec 17 2014 9:32AM RADIO ANTENNA INSTALLER (Author) documented in this encounter Plan of Treatment Upcoming Encounters Date Type Department Care Team (Late st Contact Info) Description 06/09/2024 4:20 PM RADIO ANTENNA INSTALLER Office Visit [facility] Family & Internal Medicine [facility] [address] [place] [address] [place] [address] [place], [place] [address] documented as of this encounter Visit Diagnoses Not on filedocumented in this encounter
--- OUTSIDE RECORDS SUMMARY | 2024-04-27 18:27 | XMS_ITS | Encounter Summary ---
Author Organization [facility] Address [facility] 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 [address] [place] [address] [place] [address] [place] [address] documented as of this encounter Visit Diagnoses Not on filedocumented in this encounter
--- OUTSIDE RECORDS SUMMARY | 2024-04-27 18:27 | XMS_ITS | Encounter Summary ---
Author Organization [facility] Address [facility] [facility] [place] [address] [place] [address] Care Team Providers Care Industrial Painter Name Role Phone León Sanchez MD Primary Care Provider [phone]- [phone] Encounter Details Date Type Department Care Team (Late Contact Info) Description 01/27/[address] 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 documented as of this encounter Plan of Treatment Upcoming Encounters Date Type Department Care Team (Late st Contact Info) Description 06/09/2024 4:20 PM COTTON CONVERTER Office Visit [facility] Family & Internal Medicine [facility] [address] [place] [address] [place] [address] [place] [address] documented as of this encounter Visit Diagnoses Diagnosis Localized swelling, mass or lump of neck Swelling, mass, or lump in head and neck documented in this encounter Care Teams Industrial Painter Relationship Specialty Start [place] [address] [place] [address] PCP - General FAMILY PRACTICE 02/27/18 documented as of this encounter
--- OUTSIDE RECORDS SUMMARY | 2024-04-27 18:27 | XMS_ITS | Encounter Summary ---
Author Organization [facility] Address Critical access hospital[facility] [place] [address] [place] [address] Care Team Providers Care Inspection And Testing Supervisor Name Role Phone Unavailable Primary Care Provider Unavailabl e Encounter Details Date Type Department Care Team (Late st Contact Info) Description 06/01/2016 Abstract [facility] Family & Internal Medicine [facility] [address] [place] [address] [place] [address] [place], [place] [id number] Social History Tobacco Use Types Packs/Day Years Used Date Smoking Tobacco: Never Assessed Sex and Gender Information Value Date Recorded Sex Assigned at Not on file Legal Sex Male 6:22 PM CDT Gender Identity Not on file Sexual Orientation Straight 03/28/2018 4: 44 PM GEOLOGIC TECHNICIAN documented as of this encounter Last Filed Vital Signs Vital Sign Reading Time Taken Comments Blood Pressure 116/68 06/01/2016 3:17 PM GEOLOGIC TECHNICIAN Pulse 83 06/01/2016 3:17 PM GEOLOGIC TECHNICIAN Temperature - - Respiratory Rate - - Oxygen Saturation - - Inhaled Oxygen Concentration - - Weight 71.4 kg (157 lb 6.4 oz) 06/01/2016 3:17 P M GEOLOGIC TECHNICIAN Height 175.3 cm (5' 9 ) 06/01/2016 3:17 PM GEOLOGIC TECHNICIAN Body Mass Index 23.24 06/01/2016 3:17 PM GEOLOGIC TECHNICIAN documented in this encounter Progress Notes * NOHEMI Thurston - 06/01/2016 3:15 PM CST Reason For Visit Reason For Visit: Acute Visit Chief Complaint pt c/o cough and chest congestion started last Sunday. History of Present Illness Cough: Sonny Singleton presents with complaints of gradual onset of constant episodes of moderate cough, described as loose and productive. Episodes started 4 weeks ago. He is currently experiencing cough. His symptoms are possibly caused by cold symptoms. Symptoms are improved by resting, cough drops and cough medicine. Symptoms are made worse by activity and lying down. Symptoms are unchanged. Risk Factors: exposure to ill person. Pertinent Medical History: diabetes. Associated symptoms include chills, pleuritic chest pain, postnasal drainage, mouth breathing and night sweats. Review of Systems See HPI for pertinent positives. Constitutional: feeling poorly, feeling tired and headache. Cardiovascular: Normal. Respiratory: cough. Gastrointestinal: Normal. Genitourinary: [...] bronchitis (V12.69) (Z87.09) 7. History of acute sinusitis (V12.69) (Z87.09) 8. History of acute sinusitis (V12.69) (Z87.09) 9. History of atopic dermatitis (V13.3) (Z87.2) 10. History of chronic sinusitis (V12.69) (Z87.09) 11. History of diabetes mellitus (V12.29) (Z86.39) 12. History of fracture of upper extremity (V15.51) (Z87.81) ?? left forearm 13. History of Left forearm pain (729.5) (M79.632) 14. History of Left knee pain (719.46) (M25.562) 15. History of Left knee pain (719.46) (M25.562) 16. History of Osteoarthritis of knee (715.36) (M17.9) 17. History of Right knee pain (719.46) (M25.561) [...] MG TABS; TAKE 1 TABLET DAILY; Therapy: [id number] to (Evaluate:03Hxj2031) Recorded Dispense: 30 Days ; #:30 Tablet; Refill: 0; MICHEL = N; Record; Last Updated By: Ivone Stokes; 11/30/2014 4:03:27 PM 2. Invokana 300 MG Oral Tablet; TAKE ONE TABLET BY MOUTH ONCE DAILY; Therapy: 22Mgd3753 to (Evaluate:06Lye0849); Last Rx:[id number] Ordered Rx By: Leana Johnson; Dispense: 50 Days ; #:50 Tablet; Refill: 0; For: Type 2 diabetes mellitus; MICHEL = N; Dispense Sample; Last Updated By: Ivone Stokes; 04/14/2016 8:39:01 AM 3. Lisinopril 10 MG Oral Tablet; TAKE ONE TABLET BY MOUTH ONCE DAILY FOR BLOOD PRESSURE; Therapy: 98Iol1818 to (Evaluate:27Hko9577) Requested for: 88Gye5695; Last Rx:[id number] Ordered Rx By: Leana Johnson; Dispense: 30 Days ; #:30 Tablet; Refill: 5; For: Hypertension; MICHEL = N; Verified Transmission to [facility] 435; Last Updated By: THEVA; 02/29/2016 4:21:21 PM 4. MetFORMIN HCl - 500 MG Oral Tablet; TAKE TWO TABLETS BY MOUTH TWICE DAILY; Therapy: 41Ayv0040 to (Evaluate:86Ntp1956) Requested for: 65Azy8217; Last Rx:[id number] Ordered Rx By: Leana Johnson; Dispense: 30 Days ; #:120 Tablet; Refill: 2; For: PMH: History of diabetes mellitus; MICHEL = N; Verified Transmission to [facility] 435; Last Updated By: THEVA; 02/29/2016 4:21:20 PM Allergies 1. Codeine Sulfate TABS Recorded By: Deepthi Hernandez; 11/29/2011 4:45:28 PM 2. Darvocet-N 100 TABS Recorded By: Deepthi Hernandez; 11/29/2011 4:45:28 PM Vitals Recorded: [id number] 03:17PM Temperature 98.3 F Heart Rate 83 Respiration 16 Systolic 116 Diastolic 68 O2 Saturation 99 Height 5 ft 9 in Weight 157 lb 6.4 oz BMI Calculated 23.24 BSA Calculated 1.87 Physical Exam Constitutional General appearance: Abnormal. acutely ill, uncomfortable and appears tired. Ears, Nose, Mouth, and Throat External inspection of ears and nose: Normal. Otoscopic examination: Tympanic membrane translucent with normal light reflex. Canals patent without erythema. Oropharynx: Abnormal. The posterior pharynx was erythematous. Pulmonary Respiratory effort: Abnormal. Respiratory rate: normal at 16 breaths per minute. Assessment of respiratory effort revealed normal rhythm and effort. Respiratory Findings: wet cough. Auscultation of lungs: Abnormal. Auscultation of the lungs revealed decreased breath sounds diffusely. diffuse rhonchi bilaterally. Cardiovascular Auscultation of heart: Normal rate and rhythm, normal S1 and S2, without murmurs. Musculoskeletal Gait and station: Normal. Psychiatric Orientation to person, place and time: Normal. Mood and affect: Normal. Assessment 1. Acute bronchitis with bronchospasm (466.0) (J20.9) Plan Acute bronchitis with bronchospasm 1. Amoxicillin-Pot Clavulanate 875-125 MG Oral Tablet; TAKE 1 TABLET EVERY 12 HOURS UNTIL GONE Rx By: Leana Johnson; Dispense: 7 Days ; #:14 Tablet; Refill: 0; For: Acute bronchitis with bronchospasm; MICHEL = N; Verified Transmission to [facility] 435; Last Updated By: Corinne Morgan; 06/01/2016 4:03:15 PM 2. Symbicort 80-4.5 MCG/ACT Inhalation Aerosol; INHALE 2 PUFFS TWICE DAILY. RINSE MOUTH AFTER USE Rx By: Leana Johnson; Dispense: 0 Days ; #:1 GM; Refill: 0; For: Acute bronchitis with bronchospasm; MICHEL = N; Dispense Sample Dyslipidemia, Hypertension, Prostate cancer screening, Type 2 diabetes mellitus 3. Prostate Specif Ag ( PSA ) Scrn; Status:Hold For - Manual Activation; Requested for:01Jun2016; Perform:[facility]; Due:01Jul2016; Last Updated By:Ivone Stokes; 06/01/2016 4:03:18 PM;Ordered; For:Dyslipidemia, Hypertension, Prostate cancer screening, Type 2 diabetes mellitus; Ordered By:Leana oJhnson; Dyslipidemia, Hypertension, Type 2 diabetes mellitus 4. CBC W Differential; Status:Hold For - Manual Activation; Requested for:[id number]; Perform:. [facility]; Due:01Jul2016; Last Updated By:Ivone Stokes; 06/01/2016 4:03:18 PM;Ordered; For:Dyslipidemia, Hypertension, Type 2 diabetes mellitus; Ordered By:Leana Johnson; 5. Compr Metabolic Prof ( CMP ); Status:Hold For - Manual Activation; Requested for:[id number]; Perform:. [facility]; Due:01Jul2016; Last Updated By:Ivone Stokes; 06/01/2016 4:03:18 PM;Ordered; For:Dyslipidemia, Hypertension, Type 2 diabetes mellitus; Ordered By:Leana Johnson; 6. Lipid W/ Calculated LDL; Status:Hold For - Manual Activation; Requested for:[id number]; Perform:. [facility]; Due:01Jul2016; Last Updated By:Ivone Stokes; 06/01/2016 4:03:18 PM;Ordered; For:Dyslipidemia, Hypertension, Type 2 diabetes mellitus; Ordered By:Leana Johnson; Prostate cancer screening 7. TSH W Reflex Free T4; Status:Hold For - Manual Activation; Requested for:[id number]; Perform:[facility]; Due:01Jul2016; Last Updated By:Ivone Stokes; 06/01/2016 4:03:18 PM;Ordered; For:Prostate cancer screening; Ordered By:Leana Johnson; Discussion/Summary Acute Bronchitis with bronchospasms- Discussed Abx therapy IM steroid injection and use of inhaler dispensed as sample. Encouraged to continue to increase oral fluid intake, rest and use of OTC medications for added symptom control. Again reinforced importance of management of DM and effects on illness. FU PRN Signatures Electronically signed by : Leana Johnson NP; Jun 01 2016 4:25PM GEOLOGIC TECHNICIAN (Author) documented in this encounter Plan of Treatment Upcoming Encounters Date Type Department Care Team (Late st Contact Info) Description 06/09/2024 4:20 PM GEOLOGIC TECHNICIAN Office Visit [facility] Medical Group Family & Internal Medicine - [address] [address] León Sanchez MD [address] [place] [address] documented as of this encounter Procedures Procedure Name Priority Date/Time Associated Diagnosis Comments LIPID W/CALC LDL Routine 06/05/2016 8:03 AM GEOLOGIC TECHNICIAN PROSTATE SPECIFIC ANTIGEN,TOTAL Routine 06/05/2016 8:03 AM GEOLOGIC TECHNICIAN COMPREHENSIVE METABOLIC PANEL Routine 06/05/2016 8:03 AM GEOLOGIC TECHNICIAN CBC W/DIFF AUTOMATED Routine 06/05/2016 8:03 AM GEOLOGIC TECHNICIAN documented in this encounter Results * PROSTATE SPECIFIC ANTIGEN,TOTAL (06/05/2016 8:03 AM GEOLOGIC TECHNICIAN) PSA 1.35 <4.0 ng/mL [facility] TO EPIC CONVERSION Comment: Result Comment: TEST WAS PERFORMED USING THE VICKI METHOD. ??PSA VALUES OBTAINED WITH OTHER ASSAY METHODS OR KITS CANNOT BE USED INTERCHANGEABLY WITH RESULTS OBTAINED BY THE ?? VICKI METHOD. ?? TESTING PERFORMED AT [address] ??[id number] 06/05/2016 8:03 AM GEOLOGIC TECHNICIAN 06/05/2016 8:03 AM GEOLOGIC TECHNICIAN Narrative [facility] TO EP[facility] CONVERSION - 06/05/2016 7:43 PM GEOLOGIC TECHNICIAN Result Communication: Call patient with results [facility] Final Result [facility] TO [facility] CONVERSION * (ABNORMAL) LIPID W/CALC LDL (06/05/2016 8:03 AM GEOLOGIC TECHNICIAN) CHOLESTEROL 230(H) <200 MG/DL [facility] TO [facility]IC CONVERSION TRIGLYCERIDES 234(H) <150 MG/DL [facility] TO EPIC CONVERSION HDL 41(L) >45 MG/DL [facility] T O EPIC CONVERSION LDL (CALCULATED) 142.2(H) <130 MG/L [facility] TO EPIC CONVERSION CHOL/HDL RATIO 5.6 [facility] OUP TO EPIC CONVERSION Comment: Result Comment: ? INTERPRETATION OF RESULTS NHLBI RECOMMENDED RANGES ? CHOLESTEROL MG/DL ?LDL MG/DL ?DESIRABLE ? <200 ?<130 ?BORDERLINE ?200-239 ? 130-159 ?HIGH RISK ? >240 ?>160 ?? REFERENCE VALUE FOR HDL CHOLESTEROL ?RISK LEVEL ??MALE MG/DL ? FEMALE MG/DL ?DECREASED ?>45 ?>55 ?AVERAGE ? 45 ? 55 ?INCREASED ?<45 ?<55 06/05/2016 8:03 AM GEOLOGIC TECHNICIAN 06/05/2016 8:03 AM GEOLOGIC TECHNICIAN Narrative [facility] TO EPIC CONVERSION - 06/05/2016 12:06 PM GEOLOGIC TECHNICIAN Result Communication: Call patient with results [facility] Final Result [facility] TO [facility]IC CONVERSION * (ABNORMAL) CBC W/DIFF AUTOMATED (06/05/2016 8:03 AM GEOLOGIC TECHNICIAN) Pathologist [facility] WBC 10.5 4.4 - 11.0 x10'3/uL [facility] TO [facility]IC CONVERSION RBC 5.40 4.50 - 5.90 x10'6/uL [facility] TO [facility]IC CONVERSION HGB 16.3 14.0 - 17.5 G/DL [facility] TO [facility]IC CONVERSION HCT 48.1 41.5 - 50.4 % [facility] TO [facility]IC CONVERSION MCV 89.1 80.0 - 96.0 FL [facility] TO [facility]IC CONVERSION MCH 30.2 26.5 - 31.4 PG [facility] TO EPIC CONVERSION MCHC 33.9 31.9 - 34.8 G/DL [facility] TO EPIC CONVERSION RDW 12.4 12.3 - 14.3 % [facility] TO EPIC CONVERSION PLT 261 151 - 353 x10'3/uL [facility] TO EPIC CONVERSION GLUCOSE 10.6 9.7 - 11.9 FL [facility] TO EPIC CONVERSION BASOPHILS % 1.1 0.0 - 1.3 % [facility] TO EPIC CONVERSION EOSINOPHILS % 0.9 0.0 - 5.6 % [facility] TO EPIC CONVERSION NEUTROPHILS % 67.1 42.1 - 71.9 % [facility] TO [facility]IC CONVERSION LYMPHOCYTES % 24.5 15.8 - 45.0 % [facility] TO [facility]IC CONVERSION IMMATURE GRANS % 1.2(H) 0.0 - 0.5 % [facility] TO [facility]IC CONVERSION ABS. NEUTROPHILS TOTAL 7.03(H) 1.40 - 6.00 x10'3/uL [facility] TO [facility]IC CONVERSION WBC MORPHOLOGY NORMAL [facility] OUP TO EPIC CONVERSION PLT MORPH. NORMAL [facility] TO [facility]IC CONVERSION RBC MORPHOLOGY NORMAL [facility] OUP TO EPIC CONVERSION MONOCYTES 5.2(L) 5.7 - 12.5 % [facility] TO [facility]IC CONVERSION ABS. LYMPHOCYTES 2.56 0.80 - 4.70 x10'3/uL [facility] TO EPIC CONVERSION 06/05/2016 8:03 AM GEOLOGIC TECHNICIAN 06/05/2016 8:03 AM GEOLOGIC TECHNICIAN Narrative [facility] TO EPIC CONVERSION - 06/05/2016 11:49 AM GEOLOGIC TECHNICIAN Result Communication: Call patient with results [facility] Final Result [facility] TO [facility]IC CONVERSION * (ABNORMAL) COMPREHENSIVE METABOLIC PANEL (06/05/2016 8:03 AM GEOLOGIC TECHNICIAN) SODIUM S/P/B 140 136 - 145 MMOL/L [facility] CONVERSION POTASSIUM S/P/B 4.7 3.5 - 5.1 MMOL/L [facility] TO [facility] CONVERSION CHLORIDE S/P/B 102 98 - 107 MMOL/L [facility] TO [facility] CONVERSION CO2 28.0 22 - 29 MMOL/L [facility] TO [facility] CONVERSION ANION GAP 14.7 10.0 - 24.0 MMOL/L [facility] CONVERSION BUN 19 8.4 - 24.7 MG/DL [facility] TO [facility]IC CONVERSION CREATININE S/P/B 0.77 0.72 - 1.25 MG/DL [facility] TO EPIC [...] [facility] TO [facility]IC CONVERSION BUN CREATININE RATIO 24.7 6.0 - 26.0 [facility] TO [facility]IC CONVERSION GLUCOSE 185(H) 70 - 105 MG/DL [facility] TO [facility]IC CONVERSION OSMOLALITY (CALC) 286 271 - 290 MOSM/KG [facility] TO [facility] CONVERSION CALCIUM S/P/B 9.8 8.4 - 10.2 MG/DL [facility] TO EPIC CONVERSION BILIRUBIN TOTAL S/P/B 0.8 0.2 - 1.2 MG/DL [facility] TO [facility]IC CONVERSION AST 13 5 - 34 U/L [facility] TO [facility] CONVERSION ALT 20 6 - 55 U/L [facility] TO [facility]IC CONVERSION ALKALINE PHOSPHATASE S/P/B 59 40 - 115 U/L [facility] TO [facility]IC CONVERSION TOTAL PROTEIN S/P/B 7.2 6.4 - 8.3 G/DL [facility] TO [facility]IC CONVERSION ALBUMIN S/P/B 4.3 3.5 - 5.0 G/DL [facility] TO [facility] CONVERSION A/G RATIO 1.5 1.1 - 1.9 RATIO [facility] TO [facility]IC CONVERSION 06/05/2016 8:03 AM GEOLOGIC TECHNICIAN 06/05/2016 8:03 AM GEOLOGIC TECHNICIAN Narrative [facility] TO EPIC CONVERSION - 06/05/2016 12:06 PM GEOLOGIC TECHNICIAN Result Communication: Call patient with results us [facility] Final Result [facility] TO [facility]IC CONVERSION documented in this encounter Visit Diagnoses Not on filedocumented in this encounter
--- OUTSIDE RECORDS SUMMARY | 2024-04-27 18:27 | XMS_ITS | Encounter Summary ---
Author Organization [facility] Address [address] [place] [address]. 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 documented as of this encounter Plan of Treatment Upcoming Encounters Date Type Department Care Team (Late st Contact Info) Description 06/09/2024 4:20 PM SLITTER AND REWINDER Office Visit [facility] Medical Group Family & Internal Medicine [facility] [address] [place] [address] [place] [address] [place] [address] documented as of this encounter Visit Diagnoses Diagnosis Hyperlipidemia Other and unspecified hyperlipidemia documented in this encounter Care Teams Regulatory Associate Relationship Specialty Start [place] [address] [place] [address] PCP - General FAMILY PRACTICE 02/27/18 documented as of this encounter
--- OUTSIDE RECORDS SUMMARY | 2024-04-27 18:27 | XMS_ITS | Encounter Summary ---
Author Organization [facility] Address [address] [place] [address]. 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 documented as of this encounter Plan of Treatment Upcoming Encounters Date Type Department Care Team (Late st Contact Info) Description 06/09/2024 4:20 PM CONDITIONER TENDER Office Visit [facility] Medical Group Family & Internal Medicine [facility] [address] [place] [address] [place] [address] [place] [address] documented as of this encounter Procedures Procedure Name Priority Date/Time Associated Diagnosis Comments COMPREHENSIVE METABOLIC PANEL Routine 02/13/2017 8:43 AM CDT CBC W/DIFF AUTOMATED Routine 02/13/2017 8:43 AM CDT documented in this encounter Results * (ABNORMAL) COMPREHENSIVE METABOLIC PANEL (02/13/2017 8:43 AM CDT) GLUCOSE 403(H) 70 - 105 MG/DL 02/13/2017 11:45 AM T [facility] BUN 11 8.4 - 24.7 MG/DL 02/13/2017 11:45 AM T [facility] CREATININE S/P/B 0.83 0.72 - 1.25 MG/DL 02/13/2017 11:45 AM [facility] SODIUM S/P/B 136 136 - 145 MMOL/L 02/13/2017 11:45 AM [facility] POTASSIUM S/P/B 4.4 3.5 - 5.1 MMOL/L 02/13/2017 11:45 AM [facility] CHLORIDE S/P/B 101 98 - 107 MMOL/L 02/13/2017 11:45 AM [facility] CO2 26.0 22 - 29 MMOL/L 02/13/2017 11:45 AM [facility] ANION GAP 13.4 10.0 - 24.0 MMOL/L 02/13/2017 11:45 AM [facility] OSMOLALITY (CALC) 288 271 - 290 MOSM/KG 02/13/2017 11:45 AM T [facility] CALCIUM S/P/B 9.3 8.4 - 10.2 MG/DL 02/13/2017 11:45 AM [facility] BILIRUBIN TOTAL S/P/B 1.2 0.2 - 1.2 MG/DL 02/13/2017 11:45 AM T [facility] TOTAL PROTEIN S/P/B 7.3 6.4 - 8.3 G/DL 02/13/2017 11:45 AM T [facility] ALBUMIN S/P/B 4.1 3.5 - 5.0 G/DL 02/13/2017 11:45 AM CDT [facility] AST 12 5 - 34 U/L 02/13/2017 11:45 AM T [facility] ALT 15 6 - 55 U/L 02/13/2017 11:45 AM T [facility] ALKALINE PHOSPHATASE S/P/B 104 40 - 115 U/L 02/13/2017 11:45 AM T [facility] BUN CREATININE RATIO 13.3 6.0 - 26.0 02/13/2017 11:45 AM [facility] A/G RATIO 1.3 1.1 - 1.9 RATIO 02/13/2017 11:45 AM [facility] EGFR NON-AFR. AMER. >60 >60 ML/MIN/1.7 3 M2 02/13/2017 11:45 AM T [facility] Comment: GFR Reference Range:Kidney Failure - <15mL/min ?Chronic Kidney Disease - <60mL/min ?? Normal Kidney Function - >60mL/min ?? GFR calculation is not recommended forPatients less than 18 years or greater than70 years as per the national Kidney Foundation.If the patient is -Georgian, multiply results by 1.21 02/13/2017 8:43 AM CDT 02/13/2017 11:02 AM CDT us Generic Conversion Md [facility] Final R esult [facility] [address] [place] [address], [place] [phone] * (ABNORMAL) CBC W/DIFF AUTOMATED (02/13/2017 8:43 AM CDT) [facility] WBC 8.6 4.4 - 11.0 x10'3/uL 02/13/2017 11:14 AM T [facility] RBC 5.45 4.50 - 5.90 x10'6/uL 02/13/2017 11:14 AM CDT [facility] HGB 16.5 14.0 - 17.5 G/DL 02/13/2017 11:14 AM T [facility] HCT 46.4 41.5 - 50.4 % 02/13/2017 11:14 AM T [facility] MCV 85.1 80.0 - 96.0 FL 02/13/2017 11:14 AM T [facility] MCH 30.3 26.5 - 31.4 PG 02/13/2017 11:14 AM T [facility] MCHC 35.6(H) 31.9 - 34.8 G/DL 02/13/2017 11:14 AM T [facility] RDW 11.8(L) 12.3 - 14.3 % 02/13/2017 11:14 AM [facility] PLT 180 151 - 353 x10'3/uL 02/13/2017 11:14 AM [facility] MPV 11.7 9.7 - 11.9 FL 02/13/2017 11:14 AM T [facility] RBC MORPHOLOGY NORMAL 02/13/2017 11:14 AM T [facility] PLT MORPH. NORMAL 02/13/2017 11:14 AM T [facility] WBC MORPHOLOGY NORMAL 02/13/2017 11:14 AM [facility] LYMPHOCYTES % 25.1 15.8 - 45.0 % 02/13/2017 11:14 AM T [facility] NEUTROPHILS % 64.9 42.1 - 71.9 % 02/13/2017 11:14 AM CDT [facility] MONOCYTES % 6.7 5.7 - 12.5 % 02/13/2017 11:14 AM CDT [facility] EOSINOPHILS 1.2 0.0 - 5.6 % 02/13/2017 11:14 AM CDT [facility] BASOPHILS 1.4(H) 0.0 - 1.3 % 02/13/2017 11:14 AM CDT [facility] ABS. NEUTROPHILS TOTAL 5.60 1.40 - 6.00 x10'3/uL 02/13/2017 11:14 AM CDT [facility] IMMATURE GRANS % 0.7(H) 0.0 - 0.5 % 02/13/2017 11:14 AM CDT [facility] ABS. LYMPHOCYTES 2.17 0.80 - 4.70 x10'3/uL 02/13/2017 11:14 AM CDT [facility] 02/13/2017 8:43 AM CDT 02/13/2017 11:02 AM CDT us Generic Conversion Md [facility] Final R esult [facility] [address] [place] [address], documented in this encounter Visit Diagnoses Diagnosis Essential (primary) hypertension Unspecified essential hypertension documented in this encounter Care Teams Evidence Specialist Relationship Specialty [place] [address] [place] [address] PCP - General FAMILY PRACTICE 02/27/18 documented as of this encounter
--- OUTSIDE RECORDS SUMMARY | 2024-04-27 18:27 | XMS_ITS | Encounter Summary ---
Author Organization [facility] Address [facility] [place] [address] [place] [address] Care Team Providers Care Obgyn Specialist Name Role Phone Unavailable Primary Care Provider Unavailabl e Encounter Details Date Type Department Care Team (Late st Contact Info) Description 01/14/2016 Abstract [facility] Medical Group Family & Internal Medicine [facility] [address] [place] [address] [place] [address] [place], [place] [id number] Social History Tobacco Use Types Packs/Day Years Used Date Smoking Tobacco: Never Assessed Sex and Gender Information Value Date Recorded Sex Assigned at Not on file Legal Sex Male 6:22 PM CDT Gender Identity Not on file Sexual Orientation Straight 03/28/2018 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 documented as of this encounter Last Filed Vital Signs Vital Sign Reading Time Taken Comments Blood Pressure 120/74 01/14/2016 3:49 PM CDT Pulse 95 01/14/2016 3:49 PM CDT Temperature - - Respiratory Rate - - Oxygen Saturation - - Inhaled Oxygen Concentration - - Weight 73.5 kg (162 lb) 01/14/2016 3:49 PM CDT Height 175.3 cm (5' 9 ) 01/14/2016 3:49 PM CDT Body Mass Index 23.92 01/14/2016 3:49 PM CDT documented in this encounter Progress Notes * León Sanchez MD - 01/14/2016 4:00 PM CDT Chief Complaint Pt here for left knee injection History of Present Illness Knee [...] MG TABS; TAKE 1 TABLET DAILY; Therapy: [id number] to (Evaluate:[id number]) Recorded 2. Invokana 300 MG Oral Tablet; TAKE ONE TABLET BY MOUTH ONCE DAILY; Therapy: 27Mlz1072 to (Evaluate:[id number]) Requested for: 53Gfn3413; Last Rx:[id number] Ordered 3. Lisinopril 10 MG Oral Tablet; TAKE ONE TABLET BY MOUTH ONCE DAILY FOR BLOOD PRESSURE; Therapy: 54Sgy6929 to (Evaluate:80Vpe6761) Requested for: 13Jul2015; Last Rx:[id number] Ordered 4. MetFORMIN HCl - 500 MG Oral Tablet; TAKE TWO TABLETS BY MOUTH TWICE DAILY; Therapy: 56Cao6280 to (Evaluate:15Kgy0416) Requested for: 69Tyu6295; Last Rx:[id number] Ordered Allergies 1. Codeine Sulfate TABS 2. Darvocet-N 100 TABS Vitals Recorded: 14Jan2016 03:49PM Heart Rate 95 Respiration 16 Systolic 120 Diastolic 74 O2 Saturation 98 Height 5 ft 9 in Weight 162 lb BMI Calculated 23.92 BSA Calculated 1.89 Physical Exam Constitutional General appearance: No acute [...] Intra-articular; MICHEL = N; Administered by: Ashlee Jennings R.N.: 01/14/2016 3:53:00 PM; Last Updated By: Ashlee Jennings; 01/14/2016 3:53:30 PM Formulary Override Reason: No Formulary Equivalent Exists 1) Left knee pain: I will again inject his knee he has had relief with these and will continue until he has eventual TKR surgery Signatures Electronically signed by : León Sanchez M.D.; Jan 14 2016 4:12PM ASSOCIATE PRODUCT MANAGER (Author) documented in this encounter Plan of Treatment Upcoming Encounters Date Type Department Care Team (Late st Contact Info) Description 06/09/2024 4:20 PM ASSOCIATE PRODUCT MANAGER Office Visit [facility] Medical Group Family & Internal Medicine [facility] [address] [place] [phone] León Sanchez [place] [id number] [place] [address] documented as of this encounter Visit Diagnoses Not on filedocumented in this encounter
--- OUTSIDE RECORDS SUMMARY | 2024-04-27 18:27 | XMS_ITS | Encounter Summary ---
Author Organization [facility] Address [facility] [place] [address] [place] [address] Care Team Providers Care Potato Chip Maker Name Role Phone Unavailable Primary Care Provider Unavailabl e Encounter Details Date Type Department Care Team (Latest Contact Info) Description 06/13/2016 Abstract [facility] Medical Group , Kareen Troy MD Social History Tobacco Use Types Packs/Day Years Used Date Smoking Tobacco: Never Assessed Sex and Gender Information Value Date Recorded Sex Assigned at Not on file Legal Sex Male 6:22 PM CDT Gender Identity Not on file Sexual Orientation Straight 03/28/2018 4: 44 PM GOLF CLUB WEIGHTER documented as of this encounter Progress Notes * Kareen Troy Md, MD - 06/13/2016 9:17 AM CST Message Recorded as Task Date: 06/06/2016 10:55 AM, Created By: Leana Johnson Task Name: Call Patient with results [facility] Regarding Patient: Sonny Singleton, Status: Active Comment: Leana Johnson - 06 Jun 2016 10:55 AM Patient Pt is either not taking medicaitons or needs Endo crinology referral Leana Johnson - 06 Jun 2016 10:56 AM Leana Johnson - 06 Jun 2016 10:57 AM No other acute findings or actions required Ivone Stokes - 09 Jun 2016 11:27 AM TASK EDITED lvm for pt to return my call. Ivone Stokes - 09 Jun 2016 11:27 AM TASK IN PROGRESS Joan Gonzalez - 12 Jun 2016 8:01 AM TASK EDITED Patient informed of results. Would like the nurse or Leana to call him back because he has several questions about this and about what an Life Enrichment Assistant will be able to do for him. Patient would likecall after 3:20pm today if possible. Ivone Stokes - 12 Jun 2016 4:56 PM TASK EDITED spoke with pt, pt stated it was okay to refer to Endocrinology. Ivone Stokes - 13 Jun 2016 9:18 AM TASK EDITED referral placed. Plan 1. Endocrinology Referral Outpatient to evaluate and treat for uncontrolled DM. Status: Need Information - Financial Authorization Requested for: [id number] Ordered; For: Type 2 diabetes mellitus; Ordered By: Leana Johnson Performed: Due: 27Jun2016; LastUpdated By: Ivone Stokes; 06/13/2016 9:18:17 AM Signatures Electronically signed by : Ivone Stokes MA; Jun 13 2016 9:18AM GOLF CLUB WEIGHTER (Author) documented in this encounter Plan of Treatment Upcoming Encounters Date Type Department Care Team (Late st Contact Info) Description 06/09/2024 4:20 PM GOLF CLUB WEIGHTER Office Visit [facility] Medical Group Family & Internal Medicine - [place] [id number] [place] [phone] [place] [address] [place] [address] documented as of this encounter Visit Diagnoses Not on filedocumented in this encounter
--- OUTSIDE RECORDS SUMMARY | 2024-04-27 18:27 | XMS_ITS | Encounter Summary ---
Author Organization [facility] Address [address] [place] [address]. [place] [address] [place] [address] Care Team Providers Care Biology Research Assistant Name Role Phone Unavailable Primary Care Provider Unavailabl e Encounter Details Date Type Department Care Team (Latest Contact Info) Description 04/30/2014 Abstract [facility] Medical Group Leana Johnson APNP Social History Tobacco Use Types Packs/Day Years Used Date Smoking Tobacco: Never Assessed Sex and Gender Information Value Date Recorded Sex Assigned at Not on file Legal Sex Male 6:22 PM CDT Gender Identity Not on file Sexual Orientation Straight 03/28/2018 4: 44 PM AUTOPSY ASSISTANT documented as of this encounter Plan of Treatment Upcoming Encounters Date Type Department Care Team (Late st Contact Info) Description 06/09/2024 4:20 PM AUTOPSY ASSISTANT Office Visit [facility] Medical Group Family & Internal Medicine [facility] [address] [place] [phone] León Sanchez [place] [id number] [place] [address] documented as of this encounter Procedures Procedure Name Priority Date/Time Associated Diagnosis Comments HEMOGLOBIN, GLYCOSYLATED Routine 04/30/2014 4:19 PM AUTOPSY ASSISTANT documented in this encounter Results * (ABNORMAL) HEMOGLOBIN, GLYCOSYLATED (04/30/2014 4:19 PM AUTOPSY ASSISTANT) HGB A1C 9.1(H) <5.7 % [facility] T O EPIC CONVERSION Comment: Result Comment: ?? INCREASED RISK OF DIABETES <5.7% ?NON-DIABETES 5.7-6.4% INCREASED RISK FOR FUTURE DIABETES > OR = 6.5 CONSISTENT WITH DIABETES ?? STANDARDS OF MEDICAL CARE IN DIABETES-2010 DIABETES CARE, 33(SUPP 1): S1-S61,2010 04/30/2014 4:19 PM AUTOPSY ASSISTANT 04/30/2014 4:19 PM AUTOPSY ASSISTANT Narrative [facility] TO EPIC CONVERSION - 05/01/2014 3:51 PM AUTOPSY ASSISTANT Result Communication: Call patient with results us Leana [facility] Final Result [facility] TO EPIC CONVERSION documented in this encounter Visit Diagnoses Not on filedocumented in this encounter
--- OUTSIDE RECORDS SUMMARY | 2024-04-27 18:27 | XMS_ITS | Encounter Summary ---
Author Organization [facility] Address [address] [place] [address]. [place] [address] [place] [address] Care Team Providers Care Plasterer Rough Name Role Phone Unavailable Primary Care Provider Unavailabl e Encounter Details Date Type Department Care Team (Late st Contact Info) Description 10/22/2014 Abstract [facility] Medical Group Family & Internal Medicine [facility] [address] [place] [address] [place] [address] [place], [place] [id number] Social History Tobacco Use Types Packs/Day Years Used Date Smoking Tobacco: Never Assessed Sex and Gender Information Value Date Recorded Sex Assigned at Not on file Legal Sex Male 6:22 PM CDT Gender Identity Not on file Sexual Orientation Straight 03/28/2018 4: 44 PM SOUND CUTTER documented as of this encounter Last Filed Vital Signs Vital Sign Reading Time Taken Comments Blood Pressure 118/82 10/22/2014 3:12 PM CDT Pulse 87 10/22/2014 3:12 PM CDT Temperature - - Respiratory Rate - - Oxygen Saturation - - Inhaled Oxygen Concentration - - Weight 76.6 kg (168 lb 12.8 oz) 10/22/2014 3:12 PM CDT Height 175.3 cm (5' 9 ) 10/22/2014 3:12 PM CDT Body Mass Index 24.93 10/22/2014 3:12 PM CDT documented in this encounter Progress Notes * NOHEMI Thurston - 10/22/2014 3:30 PM CDT Chief Complaint pt here for check up. c/o continued knee pain. History of Present Illness Diabetes: The patient is being seen for Diabetes Mellitus 2. The HbA1c was 9.0% performed on 07/2014. Current treatment includes SAMARA inhibitor. See Medication List for current medication(s). By report, there is fair compliance with treatment, fair tolerance of treatment, poor symptom control and Pt admits to his noncompliance and abuse of sodas and sugary drinks. Current pertinent lifestyle factors include disordered eating and tobacco use. The patient is currently asymptomatic Review of Systems See HPI for pertinent positives. Constitutional: Normal. ENT: normal. Cardiovascular: Normal. Respiratory: Normal. Gastrointestinal: Normal. Genitourinary: Normal. Integumentary: Normal. Musculoskeletal: joint pain. Neurological: Normal. Psychiatric: Normal. Active Problems 1. Diabetes mellitus (250.00) (E11.9) 2. Dyslipidemia (272.4) (E78.5) 3. Hypertension (401.9) (I10) 4. Hypogonadism, testicular (257.2) (E29.1) 5. Left knee pain (719.46) (M25.562) 6. Type 2 diabetes mellitus (250.00) (E11.9) [...] Take 1 tablet daily; Therapy: 18Sep2014 to (Evaluate:[id number]) Requested for: 18Sep2014; Last Rx:[id number] Ordered 2. Lisinopril 10 MG Oral Tablet; TAKE ONE TABLET BY MOUTH EVERY DAY FOR BLOOD PRESSURE; Therapy: 29Nov2011 to (Evaluate:[id number]) Requested for: 10Aug2014; Last Rx:[id number] Ordered 3. MetFORMIN HCl - 500 MG Oral Tablet; TAKE TWO TABLETS BY MOUTH TWICE DAILY; Therapy: 29Jan2012 to (Evaluate:18Ael1998) Requested for: 10Sep2014; Last Rx:[id number] Ordered Allergies 1. Codeine Sulfate TABS 2. Darvocet-N 100 TABS Vitals Recorded: 22Oct2014 03:12PM Temperature 98.3 F Heart Rate 87 Respiration 16 Systolic 118 Diastolic 82 O2 Saturation 98 Height 5 ft 9 in Weight 168 lb 12.8 oz BMI Calculated 24.93 BSA Calculated 1.92 Physical Exam Constitutional General appearance: No acute distress, well appearing and well nourished. Pulmonary Respiratory effort: No increased work of breathing or signs of respiratory distress. Auscultation of lungs: Clear to auscultation. Cardiovascular Auscultation of heart: Normal rate and rhythm, normal S1 and S2, without murmurs. Examination of extremities for edema and/or varicosities: Normal. Musculoskeletal Gait and station: Normal. Psychiatric Orientation to person, place and time: Normal. Mood and affect: Normal. Assessment 1. Diabetes mellitus (250.00) (E11.9) Plan Diabetes mellitus 1. Hemoglobin A1C ( HA1C ); Status:In Progress - Specimen/Data Collected; Done: 19Oct2014 Perform:[facility]; Due:18Nov2014; Last Updated By:Rosa Stone; 10/22/2014 3:55:29 PM;Ordered; For:Diabetes mellitus; Ordered By:Leana Johnson; Type 2 diabetes mellitus 2. Invokana 300 MG Oral Tablet; Take 1 tablet daily Rx By: Leana Johnson; Dispense: 30 Days ; #:30 Tablet; Refill: 5; For: Type 2 diabetes mellitus; MICHEL = N; Verified Transmission to [facility]; Msg to Pharmacy: NEW DOSAGE; Last Updated By: Corinne Morgan; 10/22/2014 4:02:28 PM script for 100mg 2 tabs daily is not covered by insurance so Leana wants to decrease back down to 100mg daily. pharmacy informed to cx 100mg 2 tabs daily script. pt informed. Discussion/Summary DM2- Discussed HgA1c results and reinforced compliance and treatment options to better manage DM. Pt is reluctant to give up his sugary drinks or make changes in lifestyle, despite potential complications of untreated DM. He does agree to take Invokana and make attempt to take on a daily basis. He was also offered option of Glimepiride, but chose Invokana. Fu in 3 months Signatures Electronically signed by : Leana Johsnon NP; Oct 22 2014 4:32PM SOUND CUTTER (Author) documented in this encounter Plan of Treatment Upcoming Encounters Date Type Department Care Team (Late st Contact Info) Description 06/09/2024 4:20 PM SOUND CUTTER Office Visit [facility] Medical Group Family & Internal Medicine [facility] [address] [place] [address] León Sanchez [place] [id number] [place] [address] documented as of this encounter Visit Diagnoses Not on filedocumented in this encounter
--- OUTSIDE RECORDS SUMMARY | 2024-04-27 18:27 | XMS_ITS | Encounter Summary ---
Author Organization [facility] Address [facility] [place] [address] [place] [address] Care Team Providers Care Sterilizer Operator Name Role Phone Unavailable Primary Care Provider Unavailabl e Encounter Details Date Type Department Care Team (Latest Contact Info) Description 06/05/2016 Abstract [facility] Medical Group Leana Johnson APNP Social History Tobacco Use Types Packs/Day Years Used Date Smoking Tobacco: Never Assessed Sex and Gender Information Value Date Recorded Sex Assigned at Not on file Legal Sex Male 6:22 PM CDT Gender Identity Not on file Sexual Orientation Straight 03/28/2018 4: 44 PM QUALIFICATION ENGINEER documented as of this encounter Plan of Treatment Upcoming Encounters Date Type Department Care Team (Late st Contact Info) Description 06/09/2024 4:20 PM QUALIFICATION ENGINEER Office Visit [facility] Medical Group Family & Internal Medicine [facility] [address] [place] [address] León Sanchez [place] [id number] [place] [address] documented as of this encounter Procedures Procedure Name Priority Date/Time Associated Diagnosis Comments TSH W/REFLEX Routine 06/05/2016 8:03 AM QUALIFICATION ENGINEER documented in this encounter Results * TSH W/REFLEX (SNS) (06/05/2016 8:03 AM QUALIFICATION ENGINEER) TSH 1.01 0.35 - 4.94 uIU/mL [facility] TO EPIC CONVERSION Comment:Result Comment: FREE T4 NOT INDICATED 06/05/2016 8:03 AM QUALIFICATION ENGINEER 06/05/2016 8:03 AM QUALIFICATION ENGINEER Narrative [facility] TO EPIC CONVERSION - 06/06/2016 1:08 PM QUALIFICATION ENGINEER Result Communication: No patient communication needed at this time us Leana [facility] Final Result [facility] TO EPIC CONVERSION documented in this encounter Visit Diagnoses Not on filedocumented in this encounter
--- OUTSIDE RECORDS SUMMARY | 2024-04-27 18:27 | XMS_ITS | Encounter Summary ---
Author Organization [facility] Address [facility] [place] [address] [place] [address] Care Team Providers Care Spray Machine Operator Name Role Phone Unavailable Primary Care Provider Unavailabl e Encounter Details Date Type Department Care Team (Latest Contact Info) Description 12/17/2014 Abstract [facility] Medical Group Social History Tobacco Use Types Packs/Day Years Used Date Smoking Tobacco: Never Assessed Sex and Gender Information Value Date Recorded Sex Assigned at Not on file Legal Sex Male 6:22 PM CDT Gender Identity Not on file Sexual Orientation Straight 03/28/2018 4: 44 PM FILM PROCESS OPERATOR documented as of this encounter Plan of Treatment Upcoming Encounters Date Type Department Care Team (Late st Contact Info) Description 06/09/2024 4:20 PM FILM PROCESS OPERATOR Office Visit [facility] Medical Group Family & Internal Medicine [facility] [address] [place] [address] [place] [address] [place] [address] documented as of this encounter Visit Diagnoses Not on filedocumented in this encounter
--- OUTSIDE RECORDS SUMMARY | 2024-04-27 18:27 | XMS_ITS | Encounter Summary ---
Author Organization [facility] Address [address] [place] [address]. [place] [address] [place] [address] Care Team Providers Care Associate Director Financial Aid Name Role Phone Unavailable Primary Care Provider Unavailabl e Encounter Details Date Type Department Care Team (Latest Contact Info) Description 07/21/2014 Abstract [facility] Medical Group Social History Tobacco Use Types Packs/Day Years Used Date Smoking Tobacco: Never Assessed Sex and Gender Information Value Date Recorded Sex Assigned at Not on file Legal Sex Male 6:22 PM CDT Gender Identity Not on file Sexual Orientation Straight 03/28/2018 4: 44 PM BEVELING MACHINE OPERATOR documented as of this encounter Progress Notes * Kareen Troy Md, MD - 07/21/2014 10:10 AM CDT Message Recorded as Task Date: 07/21/2014 10:10 AM, Created By: Leana Johnson Task Name: Call Patient with results Assigned To: Leana Johnson Regarding Patient: Sonny Singleton, Status: Active Comment: Leana Johnson - 21 Jul 2014 10:10 AM Patient Needs appointment to discuss chagnes in care to better treat DM Ivone Stokes - 21 Jul 2014 11:11 AM TASK EDITED , Vicky informed and vocalized understanding. pt will call back to set up appt. HbA1c in 3 months. Signatures Electronically signed by : Ivone Stokes, ; Jul 21 2014 11:11AM BEVELING MACHINE OPERATOR (Author) * NOHEMI Thurston - 07/21/2014 10:10 AM CDT Message Needs appointment to discuss mindines in care to better treat DM Verified Results Hemoglobin A1C ( HA1C ) 20Jul2014 01:59PM [...] st Contact Info) Description 06/09/2024 4:20 PM BEVELING MACHINE OPERATOR Office Visit [facility] Medical Group Family & Internal Medicine - [place] [id number] [place] [phone] León Sanchez [place] [id number] [place] [address] documented as of this encounter Visit Diagnoses Not on filedocumented in this encounter
--- OUTSIDE RECORDS SUMMARY | 2024-04-27 18:27 | XMS_ITS | Encounter Summary ---
Author Organization [facility] Address [facility] [place] [address] [place] [address] Care Team Providers Care Technical Operations Vice President Name Role Phone Unavailable Primary Care Provider Unavailabl e Encounter Details Date Type Department Care Team (Late st Contact Info) Description 02/29/2016 Abstract [facility] Medical Group Family & Internal Medicine [facility] [address] [place] [address] [place] [address] [place], [place] [id number] Social History Tobacco Use Types Packs/Day Years Used Date Smoking Tobacco: Never Assessed Sex and Gender Information Value Date Recorded Sex Assigned at Not on file Legal Sex Male 6:22 PM CDT Gender Identity Not on file Sexual Orientation Straight 03/28/2018 4: 44 PM ASSURANCE SOURCING MANAGER documented as of this encounter Last Filed Vital Signs Vital Sign Reading Time Taken Comments Blood Pressure 124/66 02/29/2016 3:49 PM ASSURANCE SOURCING MANAGER Pulse 80 02/29/2016 3:49 PM ASSURANCE SOURCING MANAGER Temperature - - Respiratory Rate - - Oxygen Saturation - - Inhaled Oxygen Concentration - - Weight 74 kg (163 lb 3.2 oz) 02/29/2016 3:49 PM ASSURANCE SOURCING MANAGER Height 175.3 cm (5' 9 ) 02/29/2016 3:49 PM ASSURANCE SOURCING MANAGER Body Mass Index 24.1 02/29/2016 3:49 PM ASSURANCE SOURCING MANAGER documented in this encounter Progress Notes * NOHEMI Thurston - 02/29/2016 4:00 PM CST Reason For Visit Reason For Visit: Chronic Recheck Visit Chief Complaint pt here for check up for DM. pt is due for HbA1c. pt has been out of Invokana for 2-3 weeks. History of Present Illness HM, Adult Male: The patient is being seen for a health maintenance evaluation. The last health maintenance visit was 6 month(s) ago. Social History: Household members include spouse. He is . 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 The patient is a current smokeless tobacco user. He is not ready to quit usingtobacco. He reports never drinking alcohol. The patient has no concerns about alcohol abuse. He hasnever used illicit drugs. General Health: The patient's health since the last visit is described as fair. He does not have regular dental visits. The patient Very poor dental hygiene. He denies vision problems. He denies hearing loss. Immunizations status: up to date. Lifestyle:. He does not have a healthy diet. He does not have any weight concerns. He does not exercise regularly. He uses tobacco. The patient is a current smokeless tobacco user. He is not ready toquit using tobacco. He denies alcohol use. He denies drug use. Reproductive health:. the patient is sexually active. control is not being practiced. He denies erectile dysfunction. Screening: Prostate cancer screening includes last prostate-specific antigen testing 2015. Testicular cancer screening includes no self testicular examinations. Colorectal cancer screening includes no previous screening. Metabolic screening includes lipid profile performed 2015, glucose screening performed 2015, thyroid function test performed 2015 and no previous DEXA. Diabetes: The patient is being seen for [...] Systems See HPI for pertinent positives. Constitutional: negative. Head and Face: negative. Eyes: negative. ENT: negative. Cardiovascular: negative. Respiratory: negative. Gastrointestinal: negative. Genitourinary: negative. Musculoskeletal: negative and diffuse joint pain. Neurological: negative. Psychiatric: negative. Endocrine: negative. Hematologic and Lymphatic: negative. Active Problems 1. Dyslipidemia (272.4) (E78.5) 2. Hypertension (401.9) (I10) 3. Hypogonadism, testicular (257.2) (E29.1) 4. Type 2 diabetes mellitus (250.00) (E11.9) Past Medical History ?? History of Ankle injury (959.7) (S99.919A) ?? History of Arthritis, multiple joint involvement (716.99) (M12.9) ?? History of Bilateral knee pain (719.46) (M25.561,M25.562) ?? History of Hay fever (477.9) (J30.1) ?? History of acute bronchitis (V12.69) (Z87.09) ?? History of acute bronchitis with bronchospasm (V12.69) (Z87.09) ?? History of acute sinusitis (V12.69) (Z87.09) ?? History of acute sinusitis (V12.69) (Z87.09) ?? History of atopic dermatitis (V13.3) (Z87.2) ?? History of chronic sinusitis (V12.69) (Z87.09) ?? History of diabetes mellitus (V12.29) (Z86.39) ?? History of fracture of upper extremity (V15.51) (Z87.81) ?? left forearm ?? History of Left forearm pain (729.5) (M79.632) ?? History of Left knee pain (719.46) (M25.562) ?? History of Left knee pain (719.46) (M25.562) ?? History of Osteoarthritis of knee (715.36) (M17.9) ?? History of Right knee pain (719.46) (M25.561) Surgical History ?? History of Abdominal Surgery Family History Mother ?? Family history of arthritis (V17.7) (Z82.61) ?? Family history of cerebrovascular accident (V17.1) (Z82.3) ?? Family history of congestive heart failure (V17.49) (Z82.49) ?? Family history of diabetes mellitus (V18.0) (Z83.3) ?? Family history of hyperlipidemia (V18.19) (Z83.49) ?? Family history of hypertension (V17.49) (Z82.49) ?? Family history of malignant neoplasm (V16.9) (Z80.9) Social History ?? Current smokeless tobacco user ?? Daily caffeine consumption ?? 3-7 sodas daily, depends on day, some canned some bottles ? Never a smoker ?? Never Drank Alcohol Current Meds 1. Aspirin 81 MG TABS; TAKE 1 TABLET DAILY; Therapy: [id number] to (Evaluate:88Wsl2602) Recorded Dispense: 30 Days ; #:30 Tablet; Refill: 0; MICHEL = N; Record; Last Updated By: Ivone Stokes; 11/30/2014 4:03:27 PM 2. Lisinopril 10 MG Oral Tablet; TAKE ONE TABLET BY MOUTH ONCE DAILY FOR BLOOD PRESSURE; Therapy: 75Fpk7334 to (Evaluate:81Jcr5137) Requested for: 13Jul2015; Last Rx:[id number] Ordered Rx By: Leana Johnson; Dispense: 30 Days ; #:30 TAB; Refill: 5; For: Hypertension; MICHEL = N; Verified Transmission to [facility]; Last Updated By: [employer]; 02/29/2016 4:21:21 PM 3. MetFORMIN HCl - 500 MG Oral Tablet; TAKE TWO TABLETS BY MOUTH TWICE DAILY; Therapy: 29Jan2012 to (Evaluate:00Jig4494) Requested for: 17Qty4075; Last Rx:[id number] Ordered Rx By: Leana Johnson; Dispense: 30 Days ; #:120 Tablet; Refill: 2; For: PMH: History of diabetes mellitus; MICHEL = N; Verified Transmission to [facility]; Last Updated By: [employer]; 02/29/2016 4:21:20 PM Allergies 1. Codeine Sulfate TABS Recorded By: Deepthi Hernandez; 11/29/2011 4:45:28 PM 2. Darvocet-N 100 TABS Recorded By: Deepthi Hernandez; 11/29/2011 4:45:28 PM Vitals Recorded: 29Feb2016 03:49PM Temperature 98.3 F Heart Rate 80 Respiration 16 Systolic 124 Diastolic 66 O2 Saturation 98 Height 5 ft 9 in Weight 163 lb 3.2 oz BMI Calculated 24.1 BSA Calculated 1.89 Physical Exam Constitutional General appearance: Abnormal. chronically ill, uncomfortable and appears tired. Eyes Conjunctiva and lids: No swelling, erythema, [...] rhythm, normal S1 and S2, without murmurs. Abdomen Abdomen: Non-tender, no masses. Lymphatic Palpation of lymph nodes in neck: No lymphadenopathy. Musculoskeletal Gait and station: Abnormal. Abnormal gait 2/2 chronic diffuse musculoskeletal pain. Skin Poor skin care with multiple scabbed lesions to arms and legs. Psychiatric Orientation to person, place and time: Normal. Mood and affect: Normal. Right Foot Findings: normal foot. The toes were normal. Left Foot Findings: normal foot. The toes were normal. Monofilament Testing: diminished tactile sensation with monofilament testing throughout both feet. Tactile sensation in the right foot (see image for location): number 4 was diminished, number 5 was diminished, number 6 was diminished and number 9 was diminished, but number 1 was normal. Tactile sen sation in the left foot (see image for location): number 4 was diminished, number 5 was diminished,number 6 was diminished and number 9 was diminished, but number 1 was normal. Vascular: Capillary refills findings on the right were normal in the toes. Capillary refills findings on the left were normal in the toes. Assign Risk Category: 2: Loss of protective sensation with or without weakness, deformity, callus, pre-ulcer, or history of ulceration. High risk. Results/Data *A1C In Office 29Feb2016 04:07PM Leana Johnson Test Name Result Flag Reference A1C 8.7 A 4.2 - 6.5 % HbA1C Assessment 1. Type 2 diabetes mellitus (250.00) (E11.9) Plan Hypertension ?? Lisinopril 10 MG Oral Tablet; TAKE ONE TABLET BY MOUTH ONCE DAILY FOR BLOOD PRESSURE Rx By: Leana Johnson; Dispense: 30 Days ; #:30 Tablet; Refill: 5; For: Hypertension; MICHEL = N; Verified Transmission to [facility]; Last Updated By: Daniel Morgan[employer]pperdata; 02/29/2016 4:21:21 PM PMH: History of diabetes mellitus ?? MetFORMIN HCl - 500 MG Oral Tablet; TAKE TWO TABLETS BY MOUTH TWICE DAILY Rx By: Leana Johnson; Dispense: 30 Days ; #:120 Tablet; Refill: 2; For: PMH: History of diabetes mellitus; MICHEL = N; Verified Transmission to [facility]; Last Updated By: Daniel [employer]; 02/29/2016 4:21:20 PM Type 2 diabetes mellitus ?? Glimepiride 4 MG Oral Tablet; Take 1 tablet daily Rx By: Leana Johnson; Dispense: 30 Days ; #:30 Tablet; Refill: 2; For: Type 2 diabetes mellitus; MICHEL = N; Verified Transmission to [facility]; Last Updated By: [employer]; 02/29/2016 4:21:21 PM ?? *A1C In Office; Status:Resulted - Requires Verification; Done: [id number] 04:07PM Performed:In Office; Due:[id number]; Last Updated By:Rosa Stone; 02/29/2016 4:07:28 PM;Ordered; For:Type 2 diabetes mellitus; Ordered By:Leana Johnson; Discussion/Summary Currently, he eats a poor diet and has an inadequate exercise regimen. Prostate cancer screening: the risks and benefits of prostate cancer screening were discussed and prostate cancer screening is current. Testicular cancer screening: the risks and benefits of testicular cancer screening were discussed and monthly self testicular exam was advised. Colorectal cancer screening: the risks and benefits of colorectal cancer screening were discussed and the patient declines colorectal cancer screening. Screening lab work includes glucose and lipid profile. The risks and benefits of immunizations were discussed and immunizations are up to date. Advice and education were given regarding nutrition,weight bearing exercise, tobacco cessation and self skin examination. Patient discussion: discussedwith the patient. DM- Reviewed and again reinforced importance of diabetic care including compliance with medication,skin care, diet and exercise. Pt with multiple reasons why he is noncompliant and insistence that he wants to be better, just is unable. WIll Refill Metformin and add Glimepiride in place of Invokana, HgA1c in 3 months. Discussed Nurse Navigator, Endo and other Diabetic sources which pt refuses at this time, but states that he will consider if his next visit.HgA1c is not betterr. HTN- Stable on current medications. Will refill and continue to monitor. FU in 3 months Signatures Electronically signed by : Leana Johnson NP; Mar 02 2016 7:30AM ASSURANCE SOURCING MANAGER (Author) documented in this encounter Plan of Treatment Upcoming Encounters Date Type Department Care Team (Late st Contact Info) Description 06/09/2024 4:20 PM ASSURANCE SOURCING MANAGER Office Visit [facility] Medical Group Family & Internal Medicine - [place] [id number] [place] [phone] [place] [address] [place] [address] documented as of this encounter Procedures Procedure Name Priority Date/Time Associated Diagnosis Comments HEMOGLOBIN, GLYCOSYLATED Routine 02/29/2016 4:07 PM ASSURANCE SOURCING MANAGER documented in this encounter Results * (ABNORMAL) HEMOGLOBIN, GLYCOSYLATED (02/29/2016 4:07 PM ASSURANCE SOURCING MANAGER) HGB A1C 8.7(A) 4.2 - 6.5 % HbA1C [facility] TO EPIC CONVERSION 02/29/2016 4:07 PM ASSURANCE SOURCING MANAGER 02/29/2016 4:07 PM ASSURANCE SOURCING MANAGER Narrative [facility] TO EPIC CONVERSION - 02/29/2016 4:07 PM ASSURANCE SOURCING MANAGER Result Communication: Discussed results with patient us Leana [facility] Final Result [facility] TO EPIC CONVERSION documented in this encounter Visit Diagnoses Not on filedocumented in this encounter
--- OUTSIDE RECORDS SUMMARY | 2024-04-27 18:27 | XMS_ITS | Encounter Summary ---
Author Organization [facility] Address [address] [place] [address]. [place] [address] [place] [address] Care Team Providers Care Beef Cattle Farm Worker Name Role Phone Unavailable Primary Care Provider Unavailabl e Encounter Details Date Type Department Care Team (Latest Contact Info) Description 02/14/2017 Abstract [facility] Medical Group Social History Tobacco Use Types Packs/Day Years Used Date Smoking Tobacco: Never Assessed Sex and Gender Information Value Date Recorded Sex Assigned at Not on file Legal Sex Male 6:22 PM CDT Gender Identity Not on file Sexual Orientation Straight 03/28/2018 4: 44 PM BINDER COVERSTITCH documented as of this encounter Progress Notes * León Sanchez MD - 02/14/2017 3:05 PM CDT Message pt is aware of the CT results and has a appointment with ENT this week he was also told of his hgba1-c and will restart metformin and trulicity Per Dr. Sanchez pt informed of results Verified Results CT NECK SFT TISSUE W 10Feb2017 09:46AM León Sanchez Test Name Result Flag Reference CT NECK SFT TISSUE W (Report) BRADEN TREJO ADMIT/SERVICE DATE: 02/10/17 ACCT: [id number] DISCHARGE DATE: : 1960 SEX: M ORD SITE: [facility] PT TYPE: REG CLI ORDERING MD: CANDI ADAMS STUDY DATE REPORT # ORDER # EXT ORDER ID 02/10/17 [id number] PROC CODE: [id number] PROCEDURE DESCRIPTION: CT NECK [...] REGI MARQUEZ MD ON 02/10/2017 9:11 AM Signatures Electronically signed by : Ashlee Jennings R.N.; Feb 15 2017 10:25AM BINDER COVERSTITCH (Author) documented in this encounter Plan of Treatment Upcoming Encounters Date Type Department Care Team (Late st Contact Info) Description 06/09/2024 4:20 PM BINDER COVERSTITCH Office Visit [facility] Medical Group Family & Internal Medicine - [place] [address] [place] [phone] León Sanchez [place] [id number] [place] [address] documented as of this encounter Visit Diagnoses Not on filedocumented in this encounter
--- OUTSIDE RECORDS SUMMARY | 2024-04-27 18:27 | XMS_ITS | Encounter Summary ---
Author Organization [facility] Address [facility] [place] [address] [place] [address] Care Team Providers Care Penology Professor Name Role Phone Unavailable Primary Care Provider Unavailabl e Encounter Details Date Type Department Care Team (Latest Contact Info) Description 12/04/2014 Abstract [facility] Medical Group Social History Tobacco Use Types Packs/Day Years Used Date Smoking Tobacco: Never Assessed Sex and Gender Information Value Date Recorded Sex Assigned at Not on file Legal Sex Male 6:22 PM CDT Gender Identity Not on file Sexual Orientation Straight 03/28/2018 4: 44 PM COMPUTER LAB PARA PROFESSIONAL documented as of this encounter Plan of Treatment Upcoming Encounters Date Type Department Care Team (Late st Contact Info) Description 06/09/2024 4:20 PM COMPUTER LAB PARA PROFESSIONAL Office Visit [facility] Medical Group Family & Internal Medicine [facility] [address] [place] [address] [place] [address] [place] [address] documented as of this encounter Visit Diagnoses Not on filedocumented in this encounter
--- OUTSIDE RECORDS SUMMARY | 2024-04-27 18:27 | XMS_ITS | Encounter Summary ---
Author Organization [facility] Address [facility] [place] [address] [place] [address] Care Team Providers Care Cable Way Operator Name Role Phone Unavailable Primary Care Provider Unavailabl e Encounter Details Date Type Department Care Team (Latest Contact Info) Description 11/30/2015 Abstract [facility] Medical Group Social History Tobacco Use Types Packs/Day Years Used Date Smoking Tobacco: Never Assessed Sex and Gender Information Value Date Recorded Sex Assigned at Not on file Legal Sex Male 6:22 PM CDT Gender Identity Not on file Sexual Orientation Straight 03/28/2018 4: 44 PM CO FOUNDER & CEO documented as of this encounter Progress Notes * NOHEMI Thurston - 11/30/2015 7:53 AM CDT Verified Results *A1C In Office [id number] 04:10PM Leana Johnson Test Name Result Flag Reference A1C 9.0 A 4.2 - 6.5 % HbA1C documented in this encounter Plan of Treatment Upcoming Encounters Date Type Department Care Team (Late st Contact Info) Description 06/09/2024 4:20 PM CO FOUNDER & CEO Office Visit [facility] Medical Group Family & Internal Medicine [facility] [address] [place] [phone] [place] [address] [place] [address] documented as of this encounter Visit Diagnoses Not on filedocumented in this encounter
--- OUTSIDE RECORDS SUMMARY | 2024-04-27 18:27 | XMS_ITS | Encounter Summary ---
Author Organization [facility] Address [address] [place] [address]. [place] [address] [place] [address] Care Team Providers Care Olive Picker Name Role Phone Unavailable Primary Care Provider Unavailabl e Encounter Details Date Type Department Care Team (Latest Contact Info) Description 10/22/2014 Abstract [facility] Medical Group Leana Johnson APNP Social History Tobacco Use Types Packs/Day Years Used Date Smoking Tobacco: Never Assessed Sex and Gender Information Value Date Recorded Sex Assigned at Not on file Legal Sex Male 6:22 PM CDT Gender Identity Not on file Sexual Orientation Straight 03/28/2018 4: 44 PM ARTILLERY METEOROLOGICAL MAN documented as of this encounter Plan of Treatment Upcoming Encounters Date Type Department Care Team (Late st Contact Info) Description 06/09/2024 4:20 PM ARTILLERY METEOROLOGICAL MAN Office Visit [facility] Medical Group Family & Internal Medicine [facility] [address] [place] [phone] León Sanchez [place] [id number] [place] [address] documented as of this encounter Procedures Procedure Name Priority Date/Time Associated Diagnosis Comments HEMOGLOBIN, GLYCOSYLATED Routine 10/22/2014 6:23 PM CDT documented in this encounter Results * (ABNORMAL) HEMOGLOBIN, GLYCOSYLATED (10/22/2014 6:23 PM CDT) HGB A1C 7.6(H) <5.7 % [facility] T O EPIC CONVERSION Comment: Result Comment: ?? INCREASED RISK OF DIABETES <5.7% ?NON-DIABETES 5.7-6.4% INCREASED RISK FOR FUTURE DIABETES > OR = 6.5 CONSISTENT WITH DIABETES ?? STANDARDS OF MEDICAL CARE IN DIABETES-2010 DIABETES CARE, 33(SUPP 1): S1-S61,2010 10/22/2014 6:23 PM CDT 10/22/2014 6:23 PM CDT Narrative [facility] TO EPIC CONVERSION - 10/23/2014 11:57 AM CDT Result Communication: Call patient with results us [facility]ana [facility] Final Result [facility] TO EPIC CONVERSION documented in this encounter Visit Diagnoses Not on filedocumented in this encounter
--- OUTSIDE RECORDS SUMMARY | 2024-04-27 18:27 | XMS_ITS | Encounter Summary ---
Author Organization [facility] Address [address] [place] [address]. [place] [address] [place] [address] Care Team Providers Care Top Precipitator Operator Helper Name Role Phone Unavailable Primary Care Provider Unavailabl e Encounter Details Date Type Department Care Team (Late st Contact Info) Description 11/29/2015 Abstract [facility] Family & Internal Medicine [facility] [address] [place] [address] [place] [address] [place] [address] Social History Tobacco Use Types Packs/Day Years Used Date Smoking Tobacco: Never Assessed Sex and Gender Information Value Date Recorded Sex Assigned at Not on file Legal Sex Male 6:22 PM CDT Gender Identity Not on file Sexual Orientation Straight 03/28/2018 4: 44 PM PURCHASING CONTRACTING CLERK documented as of this encounter Last Filed Vital Signs Vital Sign Reading Time Taken Comments Blood Pressure 116/74 11/29/2015 3:49 PM CDT Pulse 100 11/29/2015 3:49 PM CDT Temperature - - Respiratory Rate - - Oxygen Saturation - - Inhaled Oxygen Concentration - - Weight 73.6 kg (162 lb 3.2 oz) 11/29/2015 3:49 P M CDT Height 175.3 cm (5' 9 ) 11/29/2015 3:49 PM CDT Body Mass Index 23.95 11/29/2015 3:49 PM CDT documented in this encounter Progress Notes * NOHEMI Thurston - 11/29/2015 4:00 PM CDT Chief Complaint pt here for check up for DM. History of Present Illness Diabetes: The patient is being seen for Diabetes Mellitus 2. The HbA1c was 9.0% performed on 11/28. See Medication List for current medication(s). By report, there is poor compliance with treatment and poor symptom control. Current pertinent lifestyle factors include disordered eating, inactivity and tobacco use. Symptoms reported by the patient include fatigue. Review of Systems See HPI for pertinent positives. Constitutional: feeling poorly and feeling tired. ENT: normal. Cardiovascular: Normal. Respiratory: Normal. Gastrointestinal: Normal. Genitourinary: Normal. Integumentary: Normal. Musculoskeletal: arthralgias and joint pain. Neurological: Normal. Psychiatric: Normal. Active [...] MG TABS; TAKE 1 TABLET DAILY; Therapy: 80Ywc0174 to (Evaluate:37Eot1051) Recorded 2. Invokana 300 MG Oral Tablet; TAKE ONE TABLET BY MOUTH ONCE DAILY; Therapy: 35Tmy6220 to (Evaluate:55Mwk2638) Requested for: 59Ckl8937; Last Rx:[id number] Ordered 3. Lisinopril 10 MG Oral Tablet; TAKE ONE TABLET BY MOUTH ONCE DAILY FOR BLOOD PRESSURE; Therapy: 26Rse6182 to (Evaluate:92Lyg6764) Requested for: 13Jul2015; Last Rx:[id number] Ordered 4. MetFORMIN HCl - 500 MG Oral Tablet; TAKE TWO TABLETS BY MOUTH TWICE DAILY; Therapy: 65Rtl6767 to (Evaluate:94Phi7946) Requested for: 32Gta6666; Last Rx:[id number] Ordered Allergies 1. Codeine Sulfate TABS 2. Darvocet-N 100 TABS Vitals Recorded: 29Nov2015 03:49PM Temperature 98 F Heart Rate 100 Respiration 16 Systolic 116 Diastolic 74 O2 Saturation 98 Height 5 ft 9 in Weight 162 lb 3.2 oz BMI Calculated 23.95 BSA Calculated 1.89 Physical Exam Constitutional General appearance: Abnormal. chronically ill, uncomfortable and appears tired. Pulmonary Respiratory effort: No increased work of breathing or signs of respiratory distress. Auscultation of lungs: Clear to auscultation. Cardiovascular Auscultation of heart: Normal rate and rhythm, normal S1 and S2, without murmurs. Musculoskeletal Gait and station: Abnormal. Gait evaluation demonstrated limping on the right. Inspection/palpation of joints, bones, and muscles: Abnormal. Complains of right knee pain and leftshoulder pain, that are not new. Pt is noncompliant with all treatment options and therapies. Psychiatric Orientation to person, place and time: Normal. Mood and affect: Normal. Results/Data *A1C In Office 76Uei2775 04:10PM Leana Johnson Test Name Result Flag Reference A1C 9.0 A 4.2 - 6.5 % HbA1C Assessment 1. Type 2 diabetes mellitus (250.00) (E11.9) Plan Type 2 diabetes mellitus 1. *A1C In Office; Status:Resulted - Requires Verification; Done: 73Usu0232 04:10PM Performed:In Office; Due:95Sqr3793; Last Updated By:Rosa Stone; 11/29/2015 4:11:11 PM;Ordered; For:Type 2 diabetes mellitus; Ordered By:Leana Johnson; Discussion/Summary DM- Pt is noncompliant with medications, therapies and all recommendations regarding his health care. I discuss, educate and reinforce treatment plans at each visit and offer suggestions, which pt opts not to follow. Care is desperately limited to pt compliant and personal choices. FU in 3 months Signatures Electronically signed by : Leana Johnson NP; Nov 29 2015 5:43PM PURCHASING CONTRACTING CLERK (Author) documented in this encounter Plan of Treatment Upcoming Encounters Date Type Department Care Team (Late st Contact Info) Description 06/09/2024 4:20 PM PURCHASING CONTRACTING CLERK Office Visit [facility] Family & Internal Medicine - [place] [address] [place] [address] León Sanchez [place] [id number] [place] [address] documented as of this encounter Procedures Procedure Name Priority Date/Time Associated Diagnosis Comments HEMOGLOBIN, GLYCOSYLATED Routine 11/29/2015 4:10 PM CDT documented in this encounter Results * (ABNORMAL) HEMOGLOBIN, GLYCOSYLATED (11/29/2015 4:10 PM CDT) HGB A1C 9.0(A) 4.2 - 6.5 % HbA1C [facility] TO EPIC CONVERSION 11/29/2015 4:10 PM CDT 11/29/2015 4:10 PM CDT Narrative [facility] TO EPIC CONVERSION - 11/29/2015 4:10 PM CDT Result Communication: No patient communication needed at this time us [facility] Final Result [facility] TO EPIC CONVERSION documented in this encounter Visit Diagnoses Not on filedocumented in this encounter
--- OUTSIDE RECORDS SUMMARY | 2024-04-27 18:27 | XMS_ITS | Encounter Summary ---
Author Organization [facility] Address [address] [place] [address]. [place] [address] [place] [address] Care Team Providers Care Manifest/Order Organizer Print Orders Name Role Phone Unavailable Primary Care Provider Unavailabl e Encounter Details Date Type Department Care Team (Late st Contact Info) Description 06/19/2016 Abstract [facility] Family & Internal Medicine [facility] [address] [place] [address] [place] [address] [place], [place] [id number] Social History Tobacco Use Types Packs/Day Years Used Date Smoking Tobacco: Never Assessed Sex and Gender Information Value Date Recorded Sex Assigned at Not on file Legal Sex Male 6:22 PM CDT Gender Identity Not on file Sexual Orientation Straight 03/28/2018 4: 44 PM INDUSTRIAL TECHNOLOGY EDUCATION TEACHER documented as of this encounter Last Filed Vital Signs Vital Sign Reading Time Taken Comments Blood Pressure 126/72 06/19/2016 1:27 PM INDUSTRIAL TECHNOLOGY EDUCATION TEACHER Pulse 82 06/19/2016 1:27 PM INDUSTRIAL TECHNOLOGY EDUCATION TEACHER Temperature - - Respiratory Rate - - Oxygen Saturation - - Inhaled Oxygen Concentration - - Weight 72.2 kg (159 lb 3.2 oz) 06/19/2016 1:27 P M INDUSTRIAL TECHNOLOGY EDUCATION TEACHER Height 175.3 cm (5' 9 ) 06/19/2016 1:27 PM INDUSTRIAL TECHNOLOGY EDUCATION TEACHER Body Mass Index 23.51 06/19/2016 1:27 PM INDUSTRIAL TECHNOLOGY EDUCATION TEACHER documented in this encounter Progress Notes * NOHEMI Thurston - 06/19/2016 1:30 PM CST Reason For Visit Reason For Visit: Acute Visit Chief Complaint pt c/o issues with neck, swells on left side some days, itches. History of Present Illness Seasonal Allergy (Brief): The patient is being seen for an acute exacerbation of seasonal allergy. Symptoms: itching eyes, itching nose, runny nose and postnasal drainage. The patient is currently experiencing symptoms. No associated symptoms are reported. Review of Systems See HPI for pertinent positives. Constitutional: feeling poorly and feeling tired. ENT: nasal discharge. Cardiovascular: Normal. Respiratory: Normal. Gastrointestinal: Normal. Genitourinary: [...] 17. History of Osteoarthritis of knee (715.36) (M17.9) 18. History of Prostate cancer screening (V76.44) [...] MG TABS; TAKE 1 TABLET DAILY; Therapy: 83Kyc6091 to (Evaluate:15Ixz8806) Recorded Dispense: 30 Days ; #:30 Tablet; Refill: 0; MICHEL = N; Record; Last Updated By: Ivone Stokes; 11/30/2014 4:03:27 PM 2. Invokana 300 MG Oral Tablet; TAKE ONE TABLET BY MOUTH ONCE DAILY; Therapy: 48Ygs3800 to (Evaluate:82Rrf7416); Last Rx:[id number] Ordered Rx By: Leana Johnson; Dispense: 50 Days ; #:50 Tablet; Refill: 0; For: Type 2 diabetes mellitus; MICHEL = N; Dispense Sample; Last Updated By: Ivone Stokes; 04/14/2016 8:39:01 AM 3. Lisinopril 10 MG Oral Tablet; TAKE ONE TABLET BY MOUTH ONCE DAILY FOR BLOOD PRESSURE; Therapy: 45Dys6210 to (Evaluate:63Iob7368) Requested for: 38Wle5184; Last Rx:[id number] Ordered Rx By: Leana Johnson; Dispense: 30 Days ; #:30 Tablet; Refill: 5; For: Hypertension; MICHEL = N; Verified Transmission to [facility]; Last Updated By: Palringo; 02/29/2016 4:21:21 PM 4. MetFORMIN HCl - 500 MG Oral Tablet; TAKE TWO TABLETS BY MOUTH TWICE DAILY; Therapy: 47Vrk0776 to (Evaluate:08Vbj3553) Requested for: 40Abp1535; Last Rx:[id number] Ordered Rx By: Leana Johnson; Dispense: 30 Days ; #:120 Tablet; Refill: 2; For: PMH: History of diabetes mellitus; MICHEL = N; Verified Transmission to [facility]; Last Updated By: Palringo; 02/29/2016 4:21:20 PM 5. Symbicort 80-4.5 MCG/ACT Inhalation Aerosol; INHALE 2 PUFFS TWICE DAILY. RINSE MOUTH AFTER USE; Therapy: 25Ghl9474 to (Last Rx:85Pwa2665) Ordered Rx By: Leana Johnson; Dispense: 0 Days ; #:1 GM; Refill: 0; For: PMH: History of acute bronchitiswith bronchospasm; MICHEL = N; Dispense Sample; Last Updated By: Ivone Stokes; 06/01/2016 4:32:46 PM Allergies 1. Codeine Sulfate TABS Recorded By: Deepthi Hernandez; 11/29/2011 4:45:28 PM 2. Darvocet-N 100 TABS Recorded By: Deepthi Hernandez; 11/29/2011 4:45:28 PM Vitals Recorded: 19Jun2016 01:27PM Temperature 98.3 F Heart Rate 82 Respiration 16 Systolic 126 Diastolic 72 O2 Saturation 99 Height 5 ft 9 in Weight 159 lb 3.2 oz BMI Calculated 23.51 BSA Calculated 1.87 Physical Exam Constitutional General appearance: Abnormal. chronically ill and uncomfortable. Ears, Nose, Mouth, and [...] Normal. Mood and affect: Normal. Assessment 1. Seasonal allergies (477.9) (J30.2) Plan Seasonal allergies 1. Loratadine 10 MG Oral Tablet; TAKE 1 TABLET DAILY NEEDED Rx By: Leana Johnson; Dispense: 30 Days ; #:30 Tablet; Refill: 1; For: Seasonal allergies; MICHEL = N; Record Type 2 diabetes mellitus 2. *A1C In Office; Status:Active; Requested for:97Vhv4876; Perform:In Office; Due:02Oct2016; Last Updated By:Ivone Stokes; 06/19/2016 1:34:34 PM;Ordered; For:Type 2 diabetes mellitus; Ordered By:Leana Johnson; Discussion/Summary Seasonal allergies- Recommended Loratadine daily, increased oral fluid intake and avoidance of allergens. FU PRN Signatures Electronically signed by : Leana Johnson NP; Jun 19 2016 5:09PM INDUSTRIAL TECHNOLOGY EDUCATION TEACHER (Author) documented in this encounter Plan of Treatment Upcoming Encounters Date Type Department Care Team (Late st Contact Info) Description 06/09/2024 4:20 PM INDUSTRIAL TECHNOLOGY EDUCATION TEACHER Office Visit [facility] Family & Internal Medicine [address] [address] León Sanchez MD [address] [place] [address] documented as of this encounter Visit Diagnoses Not on filedocumented in this encounter
--- OUTSIDE RECORDS SUMMARY | 2024-04-27 18:27 | XMS_ITS | Encounter Summary ---
Author Organization [facility] Address [address] [place] [address]. [place] [address] [place] [address] Care Team Providers Care Chemical Treatment Plant Technician Name Role Phone Unavailable Primary Care Provider Unavailabl e Encounter Details Date Type Department Care Team (Late st Contact Info) Description 05/25/2016 Abstract [facility] Family & Internal Medicine [facility] [address] [place] [address] [place] [address] [place], [place] [id number] Social History Tobacco Use Types Packs/Day Years Used Date Smoking Tobacco: Never Assessed Sex and Gender Information Value Date Recorded Sex Assigned at Not on file Legal Sex Male 6:22 PM CDT Gender Identity Not on file Sexual Orientation Straight 03/28/2018 4: 44 PM TOOL GRINDER OPERATOR documented as of this encounter Last Filed Vital Signs Vital Sign Reading Time Taken Comments Blood Pressure 118/70 05/25/2016 3:53 PM TOOL GRINDER OPERATOR Pulse 103 05/25/2016 3:53 PM TOOL GRINDER OPERATOR Temperature - - Respiratory Rate - - Oxygen Saturation - - Inhaled Oxygen Concentration - - Weight 73.9 kg (163 lb) 05/25/2016 3:53 PM TOOL GRINDER OPERATOR Height 175.3 cm (5' 9 ) 05/25/2016 3:53 PM TOOL GRINDER OPERATOR Body Mass Index 24.07 05/25/2016 3:53 PM TOOL GRINDER OPERATOR documented in this encounter Progress Notes * León Sanchez MD - 05/25/2016 4:15 PM CST Chief Complaint Pt here with c/o continued sinus infection History of Present Illness Cough: Sonny Singleton presents with complaints of cough. Associated symptoms include chills, fever, runny nose, stuffy nose, myalgias and postnasal drainage, but no dyspnea, no wheezing, no sore throat, no chest pain, no vomiting, no hoarseness, no headache, no hemoptysis and no night sweats. Review of Systems See HPI for pertinent positives. Constitutional: fever, feeling poorly, chills and feeling tired, but no recent weight loss and no headache. ENT: no earache, no sore throat and no hearing loss. Cardiovascular: Normal. Respiratory: cough, but no shortness of breath, no wheezing and no shortness of breath during exertion. Gastrointestinal: no diarrhea. Integumentary: no skin rash. Musculoskeletal: no limb swelling. Neurological: no dizziness and no limb weakness. Psychiatric: Normal. Active Problems 1. Dyslipidemia (272.4) [...] MG TABS; TAKE 1 TABLET DAILY; Therapy: 45Fcv4419 to (Evaluate:81Zjh9398) Recorded Dispense: 30 Days ; #:30 Tablet; Refill: 0; MICHEL = N; Record; Last Updated By: Ivone Stokes; 11/30/2014 4:03:27 PM 2. Invokana 300 MG Oral Tablet; TAKE ONE TABLET BY MOUTH ONCE DAILY; Therapy: 82Zno7982 to (Evaluate:42Igh3315); Last Rx:[id number] Ordered Rx By: Leana Johnson; Dispense: 50 Days ; #:50 Tablet; Refill: 0; For: Type 2 diabetes mellitus; MICHEL = N; Dispense Sample; Last Updated By: Ivone Stokes; 04/14/2016 8:39:01 AM 3. Lisinopril 10 MG Oral Tablet; TAKE ONE TABLET BY MOUTH ONCE DAILY FOR BLOOD PRESSURE; Therapy: 91Dvv0297 to (Evaluate:47Men4884) Requested for: 45Uqa0933; Last Rx:[id number] Ordered Rx By: Leana Johnson; Dispense: 30 Days ; #:30 Tablet; Refill: 5; For: Hypertension; MICHEL = N; Verified Transmission to [facility]; Last Updated By: eVigilo; 02/29/2016 4:21:21 PM 4. MetFORMIN HCl - 500 MG Oral Tablet; TAKE TWO TABLETS BY MOUTH TWICE DAILY; Therapy: 44Jdz5886 to (Evaluate:88Ppc0336) Requested for: 04Uay2906; Last Rx:[id number] Ordered Rx By: Leana Johnson; Dispense: 30 Days ; #:120 Tablet; Refill: 2; For: PMH: History of diabetes mellitus; MICHEL = N; Verified Transmission to [facility]; Last Updated By: eVigilo; 02/29/2016 4:21:20 PM Allergies 1. Codeine Sulfate TABS Recorded By: Deepthi Hernandez; 11/29/2011 4:45:28 PM 2. Darvocet-N 100 TABS Recorded By: Deepthi Hernandez; 11/29/2011 4:45:28 PM Vitals Recorded: 44Amd2795 03:53PM Temperature 100 F Heart Rate 103 Respiration 16 Systolic 118 Diastolic 70 O2 Saturation 99 Height 5 ft 9 in Weight 163 lb BMI Calculated 24.07 BSA Calculated 1.89 Physical Exam Constitutional General [...] with no erythema, edema, exudate or lesions. poor dentition. Pulmonary Respiratory effort: No increased work of breathing or signs of respiratory distress. Auscultation of lungs: Abnormal. coarse upper exp rhonchi with no wheezing. Cardiovascular Auscultation of heart: Normal [...] Normal. Assessment 1. Acute bronchitis (466.0) (J20.9) Plan Acute bronchitis 1. Azithromycin 250 MG Oral Tablet; TAKE 2 TABLETS ON DAY 1 THEN TAKE 1 TABLET A DAY FOR 4 DAYS Rx By: León Sanchez; Dispense: 0 Days ; #:6 Tablet; Refill: 0; For: Acute bronchitis; MICHEL = N; Sent To: [facility] 2. PredniSONE 20 MG Oral Tablet; Take 2 daily for five days Rx By: León Sanchez; Dispense: 0 Days ; #:10 Tablet; Refill: 0; For: Acute bronchitis; MICHEL = N;Sent To: [facility] 435 1) Acute bronchitis: rest, push fluids, alternate with tylenol and IBU will start zithrmax and prednisone and if any wheezing or no change to notify the office Signatures Electronically signed by : León Sanchez M.D.; May 25 2016 4:03PM TOOL GRINDER OPERATOR (Author) documented in this encounter Plan of Treatment Upcoming Encounters Date Type Department Care Team (Late st Contact Info) Description 06/09/2024 4:20 PM TOOL GRINDER OPERATOR Office Visit [facility] Family & Internal Medicine [facility] [address] [place] [address] León Sanchez [place] [id number] [place] [address] documented as of this encounter Visit Diagnoses Not on filedocumented in this encounter
--- OUTSIDE RECORDS SUMMARY | 2024-04-27 18:27 | XMS_ITS | Encounter Summary ---
Author Organization [facility] Address [address] [place] [address]. [place] [address] [place] [address] Care Team Providers Care Exposure Machine Operator Name Role Phone León Sanchez MD Primary Care Provider [phone] Encounter Details Date Type Department Care Team (Late st Contact Info) Description 01/21/2014 Abstract [facility] [address] [place] [address] Leana Johnson APNP Social History [...] Orientation Straight 03/28/2018 4: 44 PM NETWORK DESKTOP SUPPORT SPECIALIST documented as of this encounter Plan of Treatment Upcoming Encounters Date Type Department Care Team (Late st Contact Info) Description 06/09/2024 4:20 PM NETWORK DESKTOP SUPPORT SPECIALIST Office Visit [facility] Medical Group Family & Internal Medicine [facility] [address] [place] [address] [place] [address] [place] [address] documented as of this encounter Visit Diagnoses Diagnosis Type 2 or unspecified type diabetes mellitus (CMS/HCC [facility]/HCC) documented in this encounter Care Teams Exposure Machine Operator Relationship Specialty Start [place] [address] [place] [address] PCP - General FAMILY PRACTICE 02/27/18 documented as of this encounter
--- OUTSIDE RECORDS SUMMARY | 2024-04-27 18:27 | XMS_ITS | Encounter Summary ---
Author Organization [facility] Address [facility] [place] [address] [place] [address] Care Team Providers Care Screen Printing Supervisor Name Role Phone Unavailable Primary Care Provider Unavailabl e Encounter Details Date Type Department Care Team (Latest Contact Info) Description 04/23/2014 Abstract [facility] Social History Tobacco Use Types Packs/Day Years Used Date Smoking Tobacco: Never Assessed Sex and Gender Information Value Date Recorded Sex Assigned at Not on file Legal Sex Male 6:22 PM CDT Gender Identity Not on file Sexual Orientation Straight 03/28/2018 4: 44 PM GROUP CONTRACT ANALYST documented as of this encounter Plan of Treatment Upcoming Encounters Date Type Department Care Team (Late st Contact Info) Description 06/09/2024 4:20 PM GROUP CONTRACT ANALYST Office Visit [facility] Medical Group Family & Internal Medicine [facility] [address] [place] [address] [place] [address] [place] [address] documented as of this encounter Visit Diagnoses Not on filedocumented in this encounter
--- OUTSIDE RECORDS SUMMARY | 2024-04-27 18:27 | XMS_ITS | Encounter Summary ---
Author Organization [facility] Address [address] [place] [address]. [place] [address] [place] [address] Care Team Providers Care Machine Puller Over Name Role Phone Unavailable Primary Care Provider Unavailabl e Encounter Details Date Type Department Care Team (Late st Contact Info) Description 06/11/2014 Abstract [facility] Medical Group Family & Internal Medicine [facility] [address] [place] [address] [place] [address] [place] [address] Social History Tobacco Use Types Packs/Day Years Used Date Smoking Tobacco: Never Assessed Sex and Gender Information Value Date Recorded Sex Assigned at Not on file Legal Sex Male 6:22 PM CDT Gender Identity Not on file Sexual Orientation Straight 03/28/2018 4: 44 PM AVIATION MANAGER documented as of this encounter Last Filed Vital Signs Vital Sign Reading Time Taken Comments Blood Pressure 132/84 06/11/2014 3:26 PM AVIATION MANAGER Pulse 94 06/11/2014 3:26 PM AVIATION MANAGER Temperature - - Respiratory Rate - - Oxygen Saturation - - Inhaled Oxygen Concentration - - Weight 75.8 kg (167 lb) 06/11/2014 3:26 PM AVIATION MANAGER Height 175.3 cm (5' 9 ) 06/11/2014 3:26 PM AVIATION MANAGER Body Mass Index 24.66 06/11/2014 3:26 PM AVIATION MANAGER documented in this encounter Progress Notes * NOHEMI Thurston - 06/11/2014 3:30 PM CST Chief Complaint pt c/o sinus issues again. pt c/o itchy throat, pressure in head, clogged ears started 4 days ago. OTC Mucinex chest and cough for two days, Tylenol sinus, liquid tylenol, meds helped a little. History of Present Illness The patient is being seen for an initial evaluation of sinusitis. The sinusitis involves all of theparanasal sinuses. The sinusitis is classified as acute. The patient is currently experiencing symptoms. The patient presents with complaints of gradual onset of constant episodes of moderate bilateral nasal congestion. Episodes started about 4 days ago. He is currently experiencing nasal congestion. His symptoms are caused by no known event. Symptoms are worsening. Pertinent Medical History: diabetesand sinusitis. clear rhinorrhea postnasal drainage Associated symptoms: chills, ear fullness and cough. Current treatment includes non-prescription analgesics and oral decongestant. By report, there is good compliance with treatment, good tolerance of treatment and fair symptom control. Review of Systems See HPI for pertinent positives. Constitutional: feeling poorly. ENT: sore throat, nasal discharge and hoarseness. Cardiovascular: Normal. Respiratory: cough. Gastrointestinal: Normal. Genitourinary: [...] acute sinusitis (V12.69) (Z87.09) 6. History of atopic dermatitis (V13.3) (Z87.2) 7. History of chronic sinusitis (V12.69) (Z87.09) 8. History of Left knee pain (719.46) (M25.562) 9. History of Osteoarthritis of knee (715.96) [...] Meds 1. Invokana 100 MG Oral Tablet; TAKE ONE TABLET BY MOUTH DAILY; Therapy: 04May2014 to (Evaluate:03Jun2014); Last Rx:04May2014 Ordered Rx By: Leana Johnson; Dispense: 30 Days ; #:30 Tablet; Refill: 0; For: Type 2 diabetes mellitus; MICHEL = N; Dispense Sample; Msg to Pharmacy: d/c Glimperide and replace it with this medication; Last Updated By: Ivone Stokes; 05/04/2014 2:58:58 PM 2. Lisinopril 10 MG Oral Tablet; TAKE ONE TABLET BY MOUTH ONCE DAILY FOR BLOOD PRESSURE; Therapy: [id number] to (Evaluate:29Jul2014) Requested for: 30Apr2014; Last Rx:30Apr2014 Ordered Rx By: Leana Johnson; Dispense: 30 Days ; #:30 Tablet; Refill: 2; For: Hypertension; MICHEL = N; Verified Transmission to [facility] 435; Last Updated By: SprainGo; 04/30/2014 7:11:05AM 3. MetFORMIN HCl - 500 MG Oral Tablet; TAKE 2 TABLETS TWICE DAILY; Therapy: 29Jan2012 to (Evaluate:14Jan2014) Requested for: [id number]; Last Rx:[id number] Ordered Rx By: Leana Johnson; Dispense: 30 Days ; #:120 Tablet; Refill: 2; For: Diabetes mellitus; MICHEL = N; Verified Transmission to [facility]; Last Updated By: SprainGo; 10/16/2013 12:24:06 PM Allergies 1. Codeine Sulfate TABS Recorded By: Deepthi Hernandez; 11/29/2011 4:45:28 PM 2. Darvocet-N 100 TABS Recorded By: Deepthi Hernandez; 11/29/2011 4:45:28 PM Vitals Vital Signs [Data Includes: Current Encounter] Recorded: 60Yva5407 03:26PM Temperature 98.7 F Heart Rate 94 Respiration 16 Systolic 132 Diastolic 84 O2 Saturation 98 Height 5 ft 9 in Weight 167 lb BMI Calculated 24.66 BSA Calculated 1.91 Physical Exam Constitutional General appearance: Abnormal. Acutely ill and uncomfortable. Ears, Nose, Mouth, and Throat External inspection of ears and nose: Normal. Otoscopic examination: Tympanic membrane translucent with normal light reflex. Canals patent without erythema. Oropharynx: Normal with no erythema, edema, exudate or lesions. Pulmonary Auscultation of lungs: Abnormal. Auscultation of the lungs revealed decreased breath sounds diffusely. Diffuse rhonchi bilaterally. Cardiovascular Auscultation of heart: Normal rate and rhythm, normal S1 and S2, without murmurs. Musculoskeletal Gait and station: Normal. Psychiatric Orientation to person, place and time: Normal. Mood and affect: Normal. Examination of the Sinuses: right maxillary tenderness, left maxillary tenderness, right frontal tenderness and left frontal tenderness. Assessment 1. Type 2 diabetes mellitus (250.00) (E11.9) 2. Acute sinusitis (461.9) (J01.90) Plan Acute sinusitis 1. Amoxicillin-Pot Clavulanate 875-125 MG Oral Tablet; TAKE 1 TABLET EVERY 12 HOURS DAILY Rx By: Leana Johnson; Dispense: 10 Days ; #:20 Tablet; Refill: 0; For: Acute sinusitis; MICHEL = N; Verified Transmission to [facility] 435; Last Updated By: SprainGo; 06/11/2014 3:59:19 PM Type 2 diabetes mellitus 2. Invokana 100 MG Oral Tablet; Take 1 tablet daily Rx By: Leana Johnson; Dispense: 30 Days ; #:30 Tablet; Refill: 5; For: Type 2 diabetes mellitus; MICHEL = N; Faxed To: [place] [address]; Last Updated By: SprainGo; 06/11/2014 3:58:21 PM Discussion/Summary Acute Sinusitis- Discussed Augmentin and continuation of Nasal spray, oral decongestant and oral antihistamine. Encouraged increased oral fluid intake, rest and use of Tylenol/Ibuprofen for fever or discomfort. FU in 3 months for DM management Signatures Electronically signed by : Leana Johnson NP; Jun 11 2014 4:24PM AVIATION MANAGER (Author) documented in this encounter Plan of Treatment Upcoming Encounters Date Type Department Care Team (Late st Contact Info) Description 06/09/2024 4:20 PM AVIATION MANAGER Office Visit [facility] Medical Group Family & Internal Medicine - [place] [address] [place] [address] [place] [address] [place] [address] documented as of this encounter Visit Diagnoses Not on filedocumented in this encounter
--- OUTSIDE RECORDS SUMMARY | 2024-04-27 18:27 | XMS_ITS | Encounter Summary ---
Author Organization [facility] Address [address] [place] [address]. [place] [address] [place] [address] Care Team Providers Care Digital Engineer Name Role Phone León Sanchez MD Primary Care Provider +1 [phone] Encounter Details Date Type Department Care Team (Late st Contact Info) Description 04/30/2014 Abstract [facility] [address] [place] [address] Leana Johnson APNP Social History [...] Sexual Orientation Straight 03/28/2018 4: 44 PM WELFARE INVESTIGATOR documented as of this encounter Plan of Treatment Upcoming Encounters Date Type Department Care Team (Late st Contact Info) Description 06/09/2024 4:20 PM WELFARE INVESTIGATOR Office Visit [facility] Medical Group Family & Internal Medicine [facility] [address] [place] [address] [place] [address] [place] [address] documented as of this encounter Visit Diagnoses Diagnosis Type 2 or unspecified type diabetes mellitus (CMS/HCC [facility]/HCC) documented in this encounter Care Teams Digital Engineer Relationship Specialty Start [place] [address] [place] [address] PCP - General FAMILY PRACTICE 02/27/18 documented as of this encounter
--- OUTSIDE RECORDS SUMMARY | 2024-04-27 18:28 | XMS_ITS | Encounter Summary ---
Author Organization [facility] Address [address] [facility] [place] [address] [place] [address] Care Team Providers Care Customer Support Agent Name Role Phone Unavailable Primary Care Provider Unavailabl e Encounter Details Date Type Department Care Team (Latest Contact Info) Description 08/15/2012 Abstract [facility] Medical Group Suzanne Salinas MD Social History Tobacco Use Types Packs/Day Years Used Date Smoking Tobacco: Never Assessed Sex and Gender Information Value Date Recorded Sex Assigned at Not on file Legal Sex Male 6:22 PM CDT Gender Identity Not on file Sexual Orientation Straight 03/28/2018 4: 44 PM PIGMENT PRESSER documented as of this encounter Progress Notes * Suzanne Salinas MD - 08/15/2012 9:00 AM CDT Chief Complaint Chief Complaint Free Text: pt here to follow up. He states his left knee is doing much better after inj he recieved when he was here in July. He c/o sinus sx. eg,rma Patient is a 51yr old male with PMH od Dyslipidemia,DM and HTN.He is here for follow up. His blood pressure has been elevated lately because he has lot of pain in his both knees and shoulder. He has diffuse osteoarthritis.He does not like to take any pain meds because that makes his stomach upset. Also he would like to get injection in his right knee. His blood sugar is running much better latley.He has been taking medications faithfully these days.he states 'I am trying to be a good patient'. Active Problems 1. Acute Sinusitis 461.9 2. Dyslipidemia 272.4 3. Hay Fever 477.9 4. Hypogonadism 257.2 5. Osteoarthritis Of Knee 715.96 Diabetes Mellitus 250.00 Ankle Injury 959.7 Hypertension 401.9 Social History ?? Never A Smoker ?? Never Drank Alcohol Current Meds 1. Fenofibrate Micronized 134 MG Oral Capsule; TAKE 1 CAPSULE DAILY; Therapy: 17May2012 to (Evaluate:72Edh1620) Requested for: 17May2012; Last Rx:17May2012 Ordered; For: Dyslipidemia (272.4); Rx By: Suzanne Salinas; Dispense: 90 Days ; #:90 Capsule; Refill: 1;Verified Transmission to [facility] 435 2. Glimepiride 2 MG Oral Tablet; Take 1 tablet twice daily; Therapy: 29Nov2011 to (Last Rx:13Jun2012) Requested for: 13Jun2012 Ordered; For: Diabetes Mellitus (250.00); Rx By: Suzanne Salinas; Dispense: 0 Days ; #:60 Tablet; Refill: 2; Verified Transmission to [facility] 435; Last Updated By: Chandrika Jennings 3. Lipofen 150 MG Oral Capsule; TAKE 1 CAPSULE DAILY WITH A MEAL; Therapy: 01Feb2012 to (Evaluate:02Mar2012); Last Rx:01Feb2012 Ordered; For: Dyslipidemia (272.4); Rx By: Hillary Jasso; Dispense: 30 Days ; #:30 Capsule; Refill:0; Dispense Sample 4. Lisinopril 10 MG Oral Tablet; TAKE 1 TABLET DAILY; Therapy: 29Nov2011 to (Evaluate:[id number]) Requested for: 13Jun2012; Last Rx:13Jun2012 Ordered; For: Hypertension (401.9); Rx By: Suzanne Salinas; Dispense: 30 Days ; #:30 Tablet; Refill: 2; Verified Transmission to [facility] 435; Last Updated By: Chandrika Jennings 5. Livalo 4 MG Oral Tablet; Take 1 tablet daily; Therapy: 01Feb2012 to (Evaluate:07Mar2012); Last Rx:01Feb2012 Ordered; For: Dyslipidemia (272.4); Rx By: Hillary Jasso; Dispense: 35 Days ; #:35 Tablet; Refill: 0; Dispense Sample 6. Lovaza 1 GM Oral Capsule; TAKE 2 CAPSULES TWICE DAILY; Therapy: 17May2012 to (Evaluate:[id number]) Requested for: 36Wzx5946; Last Rx:17May2012 Ordered; For: Dyslipidemia (272.4); Rx By: Suzanne Salinas; Dispense: 30 Days ; #:120 Capsule; Refill: 5; Verified Transmission to [facility] 435 7. MetFORMIN HCl 500 MG Oral Tablet; TAKE 2 TABLETS TWICE DAILY; Therapy: 29Jan2012 to (Evaluate:28Apr2012) Requested for: 29Jan2012; Last Rx:29Jan2012 Ordered; For: Diabetes Mellitus (250.00); Rx By: Hillary Jasso; Dispense: 30 Days ; #:120 Tablet; Refill: 2; Verified Transmission to [facility]; Last Updated By: Lisa Chowdhury Allergies 1. Codeine Sulfate TABS 2. Darvocet-N 100 TABS Physical Exam Constitutional General appearance: No acute distress, well appearing and well nourished. Eyes Pupils and irises: Equal, round and reactive to light. Ears, Nose, Mouth, and Throat Otoscopic examination: Tympanic membrance translucent with normal light reflex. Canals patent without erythema. Pulmonary Auscultation of lungs: Clear to auscultation. Cardiovascular Auscultation of heart: Normal rate and rhythm, normal S1 and S2, without murmurs. Examination of extremities for edema and/or varicosities: Normal. Abdomen Abdomen: Non-tender, no masses. Liver and spleen: No hepatomegaly or splenomegaly. Musculoskeletal Tenderness in right knee joint,crepitus present. Neurologic Cranial nerves: Cranial nerves 2-12 intact. Reflexes: 2+ and symmetric. Psychiatric Orientation to person, place and time: Normal. Mood and affect: Normal. Assessment 1. Ankle Injury 959.7 2. Diabetes Mellitus 250.00 Diabetes Mellitus 250.00 Plan Under aeptic technique 40ml of kenalog and 1ml of lidocaine is injected in right knee. Patient tolerated procedure well. BP is littl high today,likely due to pain. Monitor for now. We will do HbA1C in 3 months. Continue to monitor blood sugar. Signatures Electronically signed by : Suzanne Salinas M.D.; Sep 02 2012 9:52AM (Author) ENT PRESSER documented in this encounter Plan of Treatment Upcoming Encounters Date Type Department Care Team (Late st Contact Info) Description 06/09/2024 4:20 PM PIGMENT PRESSER Office Visit [facility] Medical Group Family & Internal Medicine [facility] [address] [place] [address] [place] [address] [place] [address] documented as of this encounter Visit Diagnoses Not on filedocumented in this encounter
--- OUTSIDE RECORDS SUMMARY | 2024-04-27 18:28 | XMS_ITS | Encounter Summary ---
Author Organization [facility] Address [address] [place] [address]. [place] [address] [place] [address] Care Team Providers Care Semiautomatic Taper Operator Name Role Phone Unavailable Primary Care Provider Unavailabl e Encounter Details Date Type Department Care Team (Latest Contact Info) Description 06/13/[address] [facility] Medical Group Social History Tobacco Use Types Packs/Day Years Used Date Smoking Tobacco: Never Assessed Sex and Gender Information Value Date Recorded Sex Assigned at Not on file Legal Sex Male 6:22 PM CDT Gender Identity Not on file Sexual Orientation Straight 03/28/2018 4: 44 PM CONSTRUCTION COST ESTIMATOR documented as of this encounter Progress Notes * Suzanne Salinas MD - 06/13/2012 9:50 AM CST Message Date: 13 Jun 2012 9:52 AM CONSTRUCTION COST ESTIMATOR, Recorded By: Chandrika Jennings Calling For: Suzanne Salinas pt came into office for refills on his Glimepiride, and lisinopril. Pt just in for office visit with Dr Salinas follow up appt in August pt give 3 months worth sent to [facility] eg,[facility] Plan 1. Glimepiride 2 MG Oral Tablet; Take 1 tablet twice daily; Therapy: 49Cqn5600 to (Last Rx:[id number]) Requested for: [id number] 2. Lisinopril 10 MG Oral Tablet; TAKE 1 TABLET DAILY; Therapy: 81Pkv1096 to (Evaluate:49Sdk3587) Requested for: 75Mtw8512; Last Rx:[id number] TRUCTION COST ESTIMATOR documented in this encounter Plan of Treatment Upcoming Encounters Date Type Department Care Team (Late st Contact Info) Description 06/09/2024 4:20 PM CONSTRUCTION COST ESTIMATOR Office Visit [facility] Medical Group Family & Internal Medicine - [place] [address] [place] [address] [place] [address] [place] [address] documented as of this encounter Visit Diagnoses Not on filedocumented in this encounter
--- OUTSIDE RECORDS SUMMARY | 2024-04-27 18:28 | XMS_ITS | Encounter Summary ---
Author Organization [facility] Address [facility] [place] [address] [place] [address] Care Team Providers Care Php Web Developer Name Role Phone Unavailable Primary Care Provider Unavailabl e Encounter Details Date Type Department Care Team (Latest Contact Info) Description 10/22/2013 Abstract [facility] Medical Group Social History Tobacco Use Types Packs/Day Years Used Date Smoking Tobacco: Never Assessed Sex and Gender Information Value Date Recorded Sex Assigned at Not on file Legal Sex Male 6:22 PM CDT Gender Identity Not on file Sexual Orientation Straight 03/28/2018 4: 44 PM RETAIL CLIENT MANAGER documented as of this encounter Plan of Treatment Upcoming Encounters Date Type Department Care Team (Late st Contact Info) Description 06/09/2024 4:20 PM RETAIL CLIENT MANAGER Office Visit [facility] Medical Group Family & Internal Medicine [facility] [address] [place] [address] [place] [address] [place] [address] documented as of this encounter Visit Diagnoses Not on filedocumented in this encounter
--- OUTSIDE RECORDS SUMMARY | 2024-04-27 18:28 | XMS_ITS | Encounter Summary ---
Author Organization [facility] Address [address] [place] [address]. [place] [address] [place] [address] Care Team Providers Care Rooter Operator Name Role Phone León Sanchez MD Primary Care Provider +1 [phone] Encounter Details Date Type Department Care Team (Late st Contact Info) Description 10/16/2013 Abstract [facility] [address] [place] [address] Leana Johnson APNP Social History [...] Straight 03/28/2018 4: 44 PM DIRECTOR OF CATH LAB documented as of this encounter Plan of Treatment Upcoming Encounters Date Type Department Care Team (Late st Contact Info) Description 06/09/2024 4:20 PM DIRECTOR OF CATH LAB Office Visit [facility] Medical Group Family & Internal Medicine [facility] [address] [place] [address] [place] [address] [place] [address] documented as of this encounter Visit Diagnoses Diagnosis Type 2 or unspecified type diabetes mellitus (CMS/HCC [facility]/HCC) documented in this encounter Care Teams Rooter Operator Relationship Specialty Start Date [place] [address] [place] [address] PCP - General FAMILY PRACTICE 02/27/18 documented as of this encounter
--- OUTSIDE RECORDS SUMMARY | 2024-04-27 18:28 | XMS_ITS | Encounter Summary ---
Author Organization [facility] Address [address] [place] [address]. [place] [address] [place] [address] Care Team Providers Care Admissions Coordinator Name Role Phone Unavailable Primary Care Provider Unavailabl e Encounter Details Date Type Department Care Team (Latest Contact Info) Description 02/06/2013 Abstract [facility] Medical Group Social History Tobacco Use Types Packs/Day Years Used Date Smoking Tobacco: Never Assessed Sex and Gender Information Value Date Recorded Sex Assigned at Not on file Legal Sex Male 6:22 PM CDT Gender Identity Not on file Sexual Orientation Straight 03/28/2018 4: 44 PM POSTDOCTORAL SCIENTIST documented as of this encounter Progress Notes * Suzanne Salinas MD - 02/06/2013 4:14 PM CDT Message Date: 06 Feb 2013 4:14 PM POSTDOCTORAL SCIENTIST, Recorded By: Chandrika Jennings Calling For: Suzanne Salinas RECEIVED REFILL REQUEST FROM [facility] ON PT LISINOPRIL. PT GIVEN 1 MONTH SENT TO PHARMACY HE IS DUE FOR F/U APPT Plan 1. Lisinopril 10 MG Oral Tablet; TAKE 1 TABLET DAILY; Therapy: [id number] to (Evaluate:08Mar2013) Requested for: 06Feb2013; Last Rx:06Feb2013; Edited Signatures Electronically signed by : Suzanne Salinas M.D.; Feb 12 2013 8:30AM (Author) DOCTORAL SCIENTIST documented in this encounter Plan of Treatment Upcoming Encounters Date Type Department Care Team (Late st Contact Info) Description 06/09/2024 4:20 PM POSTDOCTORAL SCIENTIST Office Visit [facility] Medical Group Family & Internal Medicine [address] [address] [place] [address] [facility] [place] [address] documented as of this encounter Visit Diagnoses Not on filedocumented in this encounter
--- OUTSIDE RECORDS SUMMARY | 2024-04-27 18:28 | XMS_ITS | Encounter Summary ---
Author Organization [facility] Address [address] [place] [address]. [place] [address] [place] [address] Care Team Providers Care Chauffeur Motorbus Name Role Phone Unavailable Primary Care Provider Unavailabl e Encounter Details Date Type Department Care Team (Latest Contact Info) Description 05/07/2013 Abstract [facility] Medical Group Social History Tobacco Use Types Packs/Day Years Used Date Smoking Tobacco: Never Assessed Sex and Gender Information Value Date Recorded Sex Assigned at Not on file Legal Sex Male 6:22 PM CDT Gender Identity Not on file Sexual Orientation Straight 03/28/2018 4: 44 PM HEALTH WORKERS documented as of this encounter Progress Notes * NOHEMI Thurston - 05/07/2013 5:32 PM CST Verified Results Free / Total Testosterone 29Apr2013 03:33PM Leana Johnosn Test Name Result Flag Reference TESTOSTERONE,TOTAL,LC/MS/MS 302 Reference range: 250 to 1100 Unit: ng/dL For more information on this test, go to [email or web address]/faq/ TotalTestosteroneLCMSMS TESTOSTERONE,FREE 60.7 Reference range: 35.0 to 155.0 Unit: pg/mL Test Performed by [facility], [facility], [address] [place] [address] Jarod Lau M.D., Ph.D., Director of Laboratories , JANI [id number] TH WORKERS documented in this encounter Plan of Treatment Upcoming Encounters Date Type Department Care Team (Late st Contact Info) Description 06/09/2024 4:20 PM HEALTH WORKERS Office Visit [facility] Medical Group Family & Internal Medicine [facility] [address] [place] [address] [place] [address] [place] [address] documented as of this encounter Visit Diagnoses Not on filedocumented in this encounter
--- OUTSIDE RECORDS SUMMARY | 2024-04-27 18:28 | XMS_ITS | Encounter Summary ---
Author Organization [facility] Address [facility] [facility] [place] [address] [place] [address] Care Team Providers Care Mat Worker Name Role Phone Unavailable Primary Care Provider Unavailabl e Encounter Details Date Type Department Care Team (Latest Contact Info) Description 08/15/2012 Abstract [facility] Medical Group Suzanne Salinas MD Social History Tobacco Use Types Packs/Day Years Used Date Smoking Tobacco: Never Assessed Sex and Gender Information Value Date Recorded Sex Assigned at Not on file Legal Sex Male 6:22 PM CDT Gender Identity Not on file Sexual Orientation Straight 03/28/2018 4: 44 PM SCALE SHOOTER documented as of this encounter Last Filed Vital Signs Vital Sign Reading Time Taken Comments Blood Pressure 150/92 08/15/2012 8:58 AM CDT Pulse 82 08/15/2012 8:58 AM CDT Temperature - - Respiratory Rate - - Oxygen Saturation - - Inhaled Oxygen Concentration - - Weight 79.8 kg (176 lb) 08/15/2012 8:58 AM CDT Height 175.3 cm (5' 9 ) 08/15/2012 8:58 AM CDT Body Mass Index 25.99 08/15/2012 8:58 AM CDT documented in this encounter Plan of Treatment Upcoming Encounters Date Type Department Care Team (Late st Contact Info) Description 06/09/2024 4:20 PM SCALE SHOOTER Office Visit [facility] Medical Group Family & Internal Medicine [facility] [address] [place] [address] [place] [address] [place] [address] documented as of this encounter Visit Diagnoses Not on filedocumented in this encounter
--- OUTSIDE RECORDS SUMMARY | 2024-04-27 18:28 | XMS_ITS | Encounter Summary ---
Author Organization [facility] Address [facility] [place] [address] [place] [address] Care Team Providers Care Preprint Analyst Name Role Phone Unavailable Primary Care Provider Unavailabl e Encounter Details Date Type Department Care Team (Latest Contact Info) Description 03/13/2012 Abstract [facility] Social History Tobacco Use Types Packs/Day Years Used Date Smoking Tobacco: Never Assessed Sex and Gender Information Value Date Recorded Sex Assigned at Not on file Legal Sex Male 6:22 PM CDT Gender Identity Not on file Sexual Orientation Straight 03/28/2018 4: 44 PM MOBILE MARKETING SPECIALIST documented as of this encounter Progress Notes * Leroy Diamond, - 03/13/2012 11:37 AM CST Message Recorded as Task Date: 02/01/2012 10:00 AM, Created By: Hillary Jasso Task Name: Follow Up Assigned To: Chandrika Jennings Regarding Patient: Sonny Singleton, Status: Active Comment: Hillary Jasso - 01 Feb 2012 10:00 AM TASK CREATED now due for more samples of Livalo and Lipofen Labs due Hillary Jasso - 13 Mar 2012 10:25 AM TASK EDITED Please notify patient he should be do for more samples of : Livalo 150mg daily and Lipofen 4mg daily Please give pt #3 weeks of both Also, pls tell him his lab work and OV will be due 04/02/12 Thanks, Chandrika Davidson - 13 Mar 2012 11:16 AM TASK EDITED Hillary, I just wanted to Verify medications with you we have Livalo 2mg and Lipofen 150mg. Chandrika Blue - 13 Mar 2012 11:16 AM TASK EDITED Hillary Jasso - 13 Mar 2012 11:29 AM TASK EDITED yes, my mistake Lipofen 150mg and Livalo 2 or 4mg, whatever we have samples of Thanks MiquelopalChandrika - 13 Mar 2012 11:37 AM TASK EDITED pt was informed and samples set aside for him he is going to come pick them up tomorrow morning. Ptalso scheduled an ov while on the phone eg,rma LE MARKETING SPECIALIST documented in this encounter Plan of Treatment Upcoming Encounters Date Type Department Care Team (Late st Contact Info) Description 06/09/2024 4:20 PM MOBILE MARKETING SPECIALIST Office Visit [facility] Medical Group Family & Internal Medicine [address] [address] León Sanchez MD [address] [place] [address] documented as of this encounter Visit Diagnoses Not on filedocumented in this encounter
--- OUTSIDE RECORDS SUMMARY | 2024-04-27 18:28 | XMS_ITS | Encounter Summary ---
Author Organization [facility] Address [address] [place] [address]. [place] [address] [place] [address] Care Team Providers Care Care Companion Name Role Phone León Sanchez MD Primary Care Provider [phone] Encounter Details Date Type Department Care Team (Late Contact Info) Description 04/02/2012 Abstract [facility] [address] [place] [address] Hillary Jasso, APNP [address] [address] Social History Tobacco Use Types Packs/Day Years [...] Orientation Straight 03/28/2018 4: 44 PM ENGINE ROOM OPERATOR documented as of this encounter Plan of Treatment Upcoming Encounters Date Type Department Care Team (Late st Contact Info) Description 06/09/2024 4:20 PM ENGINE ROOM OPERATOR Office Visit [facility] Medical Group Family & Internal Medicine [facility] [address] [place] [address] [place] [address] [place] [address] documented as of this encounter Visit Diagnoses Diagnosis Type 2 or unspecified type diabetes mellitus ([facility]/HCC [facility]/HCC) documented in this encounter Care Teams Care Companion Relationship Specialty Start Date [place] [address] [place] [address] PCP - General FAMILY PRACTICE 02/27/18 documented as of this encounter
--- OUTSIDE RECORDS SUMMARY | 2024-04-27 18:28 | XMS_ITS | Encounter Summary ---
Author Organization [facility] Address [address] [place] [address]. [place] [address] [place] [address] Care Team Providers Care Drum Builder Name Role Phone Unavailable Primary Care Provider Unavailabl e Encounter Details Date Type Department Care Team (Latest Contact Info) Description 08/16/2012 Abstract [facility] Medical Group Social History Tobacco Use Types Packs/Day Years Used Date Smoking Tobacco: Never Assessed Sex and Gender Information Value Date Recorded Sex Assigned at Not on file Legal Sex Male 6:22 PM CDT Gender Identity Not on file Sexual Orientation Straight 03/28/2018 4: 44 PM MONEY COUNTER documented as of this encounter Progress Notes * Suzanne Salinas MD - 08/16/2012 12:37 PM CDT Message Recorded as Task Date: 08/06/2012 12:10 PM, Created By: Suzanne Salinas Task Name: Follow Up Assigned To: Chandrika Jennings Regarding Patient: Sonny Singleton, Status: Active Comment: Suzanne Salinas - 06 Aug 2012 12:10 PM TASK CREATED can we refer him to security shift supervisor,callus and diabetes. Kesha Soares - 15 Aug 2012 11:06 AM TASK REASSIGNED: Previously Assigned To Kesha Soares Emily - 16 Aug 2012 12:19 PM TASK EDITED Pt is scheduled with Dr Green on August 27 at 3pm Chandrika Jennings - 16 Aug 2012 12:37 PM TASK EDITED pt informed eg,rma Y COUNTER documented in this encounter Plan of Treatment Upcoming Encounters Date Type Department Care Team (Late st Contact Info) Description 06/09/2024 4:20 PM MONEY COUNTER Office Visit [facility] Medical Group Family & Internal Medicine - [place] [address] [place] [address] [place] [address] [place] [address] documented as of this encounter Visit Diagnoses Not on filedocumented in this encounter
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
--- OUTSIDE RECORDS SUMMARY | 2024-04-27 18:28 | XMS_ITS | Encounter Summary ---
Author Organization [facility] Address [address] [place] [address]. [place] [address] [place] [address] Care Team Providers Care Splicing Machine Operator Name Role Phone León Sanchez MD Primary Care Provider [phone] Encounter Details Date Type Department Care Team (Late st Contact Info) Description 02/11/2013 Abstract [facility] [address] [place] [address] Suzanne Salinas MD Social History Tobacco Use [...] Sexual Orientation Straight 03/28/2018 4: 44 PM AGENCY DIRECTOR documented as of this encounter Plan of Treatment Upcoming Encounters Date Type Department Care Team (Late st Contact Info) Description 06/09/2024 4:20 PM AGENCY DIRECTOR Office Visit [facility] Medical Group Family & Internal Medicine [facility] [address] [place] [address] [place] [address] [place] [address] documented as of this encounter Visit Diagnoses Diagnosis Type 2 or unspecified type diabetes mellitus (CMS/HCC [facility]/HCC) documented in this encounter Care Teams Splicing Machine Operator Relationship Specialty Start [place] [address] [place] [address] PCP - General FAMILY PRACTICE 02/27/18 documented as of this encounter
--- OUTSIDE RECORDS SUMMARY | 2024-04-27 18:28 | XMS_ITS | Encounter Summary ---
Author Organization [facility] Address [facility] [place] [address] [place] [address] Care Team Providers Care Road Engineer Freight Name Role Phone Unavailable Primary Care Provider Unavailabl e Encounter Details Date Type Department Care Team (Late st Contact Info) Description 04/10/2013 Abstract [facility] Medical Group Family & Internal Medicine [facility] [address] [place] [address] [place] [address] [address] Social History Tobacco Use Types Packs/Day Years Used Date Smoking Tobacco: Never Assessed Sex and Gender Information Value Date Recorded Sex Assigned at Not on file Legal Sex Male 6:22 PM CDT Gender Identity Not on file Sexual Orientation Straight 03/28/2018 4: 44 PM 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 documented as of this encounter Last Filed Vital Signs Vital Sign Reading Time Taken Comments Blood Pressure 124/70 04/10/2013 4:14 PM 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 Pulse 120 04/10/2013 4:14 PM 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 Temperature - - Respiratory Rate - - Oxygen Saturation - - Inhaled Oxygen Concentration - - Weight 78.9 kg (174 lb) 04/10/2013 4:14 PM 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 Height 175.3 cm (5' 9 ) 04/10/2013 4:14 PM 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 Body Mass Index 25.7 04/10/2013 4:14 PM 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 documented in this encounter Progress Notes * NOHEMI Thurston - 04/10/2013 4:00 PM CST Reason For Visit Reason For Visit: Acute Visit Chief Complaint Chief Complaint Free Text: pt c/o sinus pressure in judaism area, below eyes and on forehead, feels pressure moving down to chest, started 3 days ago. pt c/o non-productive cough, abdominal and rib area sore due to coughing alot. pt taking Delia-Romney Cold/Sinus, not helping. History of Present Illness Cough: Sonny Singleton presents with complaints of gradual onset of intermittent episodes of moderate cough,described as tight and non-productive. Episodes started about 3 days ago. He is currently experiencing cough. His symptoms are probably caused by cold symptoms. Symptoms are worsening. Pertinent Medical History: diabetes. Associated symptoms include stuffy nose, postnasal drainage, hoarseness and headache. Review of Systems Focused-Male: See HPI for pertinent positives. Constitutional: fever, feeling poorly, feeling tired and headache. ENT: sore throat and nasal discharge. Cardiovascular: fast heart rate. Respiratory: cough. Gastrointestinal: Normal. Genitourinary: Normal. Integumentary: Normal. Musculoskeletal: Normal. Neurological: Normal. Psychiatric: Normal. Active Problems 1. Atopic Dermatitis 691.8 2. Diabetes Mellitus 250.00 3. Dyslipidemia 272.4 4. Hay Fever 477.9 5. Hypertension 401.9 6. Hypogonadism 257.2 7. Osteoarthritis Of Knee 715.96 8. Type 2 Diabetes Mellitus 250.00 Past Medical History 1. History of Acute Sinusitis 461.9 2. History of Ankle Injury 959.7 Surgical History Patient indicates no past surgical history. Family History Patient indicates no significant family history of disease. Social History ?? Never A Smoker ?? Never Drank Alcohol Current Meds 1. Glimepiride 2 MG Oral Tablet; Take 1 tablet twice daily; Therapy: 47Ujl6402 to (Last Rx:22Jan2013) Requested for: 22Jan2013 Ordered; For: Diabetes Mellitus (250.00); Rx By: Suzanne Salinas; Dispense: 0 Days ; #:60 Tablet; Refill: 2; Verified Transmission to [facility]; Last Updated By: Ivone Munguia 2. Lisinopril 10 MG Oral Tablet; TAKE 1 TABLET DAILY; Therapy: 83Kzu1440 to (Evaluate:56Iix8745) Requested for: 04Hio7867; Last Rx:[id number] Ordered; For: Hypertension (401.9); Rx By: Suzanne Salinas; Dispense: 14 Days ; #:14 Tablet; Refill: 0; Verified Transmission to [facility]; Msg to Pharmacy: PLEASE INFORM PT HE IS DUE FOR F/U;Last Updated By: Chandrika Jennings 3. MetFORMIN HCl 500 MG Oral Tablet; TAKE 2 TABLETS TWICE DAILY; Therapy: 29Jan2012 to (Evaluate:60Cpa4501) Requested for: 85Kpb8190; Last Rx:[id number] Ordered; For: Diabetes Mellitus (250.00); Rx By: Suzanne Salinas; Dispense: 30 Days ; #:120 Tablet; Refill: 2; Verified Transmission to [facility]; Last Updated By: Chandrika Jennings Allergies 1. Codeine Sulfate TABS 2. Darvocet-N 100 TABS Vitals Vital Signs [Data Includes: Current Encounter] 10Apr2013 04:14PM Temperature 99.5 F Heart Rate 120 Respiration 16 Systolic 124 Diastolic 70 O2 Saturation 98 BMI Calculated 25.77 BSA Calculated 1.94 Height 5 ft 9 in Weight 174 lb Physical Exam Constitutional General appearance: Abnormal. Uncomfortable, unkempt appearance, appears tired, poorly hydrated andPoor dental hygiene. Ears, Nose, Mouth, and Throat External inspection of ears and nose: Normal. Otoscopic examination: Abnormal. The right tympanic membrane was bulging. The left tympanic membrane was bulging. Oropharynx: Abnormal. The posterior pharynx was erythematous. Pulmonary Respiratory effort: Abnormal. Respiratory Findings: dry cough and barky cough. Cardiovascular Auscultation of heart: Abnormal. The heart rate was tachycardic at 120 bpm. Heart sounds: normal S1and normal S2. Abdomen Abdomen: Non-tender, no masses. Liver and spleen: No hepatomegaly or splenomegaly. Lymphatic Palpation of lymph nodes in neck: Abnormal. Bilateral submandibular node enlargement. Psychiatric Orientation to person, place and time: Normal. Mood and affect: Normal. Assessment 1. Acute Sinusitis 461.9 Plan 1. Azithromycin 250 MG Oral Tablet; TAKE 2 TABLETS ON DAY 1 THEN TAKE 1 TABLET A DAY FOR 4 DAYS; Therapy: 10Apr2013 to (Evaluate:23Esq8217) Requested for: 23Iqp5312; Last Rx:[id number]; Edited Ordered; For: Acute Sinusitis (461.9); Rx By: Leana Johnson; Dispense: 5 Days ; #:6 Tablet; Refill: 0; Verified Transmission to [facility] # [id number] Discussion/Summary Discussion Summary Free Text: Acute Sinusitis, in poorly controlled diabetic pt- Discussed need to increase PO fluid intake, eat healthy diet and monitor glucose; as well as rest and taking Tylenol/Ibuprofen for fever or discomfort. Encouraged to continue current OTC medications for congestion. Abx therapy initiated. FU PRN Signatures Electronically signed by : Leana Johnson NP; Apr 10 2013 5:33PM (Author) ING COORDINATOR documented in this encounter Plan of Treatment Upcoming Encounters Date Type Department Care Team (Late st Contact Info) Description 06/09/2024 4:20 PM 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 Office Visit [facility] Medical Group Family & Internal Medicine [address] [address] León Sanchez MD [address] [place] [address] documented as of this encounter Visit Diagnoses Not on filedocumented in this encounter
--- OUTSIDE RECORDS SUMMARY | 2024-04-27 18:28 | XMS_ITS | Encounter Summary ---
Author Organization [facility] Address [facility] 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
--- OUTSIDE RECORDS SUMMARY | 2024-04-27 18:28 | XMS_ITS | Encounter Summary ---
Author Organization [facility] Address Formerly [facility], [facility]6 [facility] [place] [address] [place] [address] Care Team Providers Care Utility Worker [place] Name Role Phone Unavailable Primary Care Provider Unavailabl e Encounter Details Date Type Department Care Team (Latest Contact Info) Description 10/30/2013 Abstract [facility] Suzanne Salinas MD Social History Tobacco Use Types Packs/Day Years Used Date Smoking Tobacco: Never Assessed Sex and Gender Information Value Date Recorded Sex Assigned at Not on file Legal Sex Male 6:22 PM CDT Gender Identity Not on file Sexual Orientation Straight 03/28/2018 4: 44 PM ENCHILADA MAKER documented as of this encounter Plan of Treatment Upcoming Encounters Date Type Department Care Team (Late st Contact Info) Description 06/09/2024 4:20 PM ENCHILADA MAKER Office Visit [facility] Family & Internal Medicine [facility] [address] [place] [address] [place] [address] [place] [address] documented as of this encounter Visit Diagnoses Not on filedocumented in this encounter
--- OUTSIDE RECORDS SUMMARY | 2024-04-27 18:28 | XMS_ITS | Encounter Summary ---
Author Organization [facility] Address [facility] [place] [address] [place] [address] Care Team Providers Care Recruitment Officer Name Role Phone Unavailable Primary Care Provider Unavailabl e Encounter Details Date Type Department Care Team (Latest Contact Info) Description 04/11/2012 Abstract [facility] Social History Tobacco Use Types Packs/Day Years Used Date Smoking Tobacco: Never Assessed Sex and Gender Information Value Date Recorded Sex Assigned at Not on file Legal Sex Male 6:22 PM CDT Gender Identity Not on file Sexual Orientation Straight 03/28/2018 4: 44 PM BUSINESS SERVICES TECH documented as of this encounter Plan of Treatment Upcoming Encounters Date Type Department Care Team (Late st Contact Info) Description 06/09/2024 4:20 PM BUSINESS SERVICES TECH Office Visit [facility] Family & Internal Medicine [facility] [address] [place] [address] [place] [address] [place] [address] documented as of this encounter Visit Diagnoses Not on filedocumented in this encounter
--- OUTSIDE RECORDS SUMMARY | 2024-04-27 18:28 | XMS_ITS | Encounter Summary ---
Author Organization [facility] Address [address] [place] [address]. [place] [address] [place] [address] Care Team Providers Care Automotive Starter Repairer Name Role Phone Unavailable Primary Care Provider Unavailabl e Encounter Details Date Type Department Care Team (Late st Contact Info) Description 01/07/2013 Abstract [facility] Medical [facility] Family & Internal Medicine [address] [address] Suzanne Salinas MD Social History Tobacco Use Types Packs/Day Years Used Date Smoking Tobacco: Never Assessed Sex and Gender Information Value Date Recorded Sex Assigned at Not on file Legal Sex Male 6:22 PM CDT Gender Identity Not on file Sexual Orientation Straight 03/28/2018 4: 44 PM REAR ADMIRAL documented as of this encounter Last Filed Vital Signs Vital Sign Reading Time Taken Comments Blood Pressure 184/100 01/07/2013 10:45 AM CDT Pulse 87 01/07/2013 10:45 AM CDT Temperature - - Respiratory Rate - - Oxygen Saturation - - Inhaled Oxygen Concentration - - Weight 78.9 kg (174 lb) 01/07/2013 10:45 AM CDT Height 175.3 cm (5' 9 ) 01/07/2013 10:45 AM CDT Body Mass Index 25.7 01/07/2013 10:45 AM CDT documented in this encounter Progress Notes * Suzanne Salinas MD - 01/07/2013 10:30 AM CDT Chief Complaint Chief Complaint Free Text: PT HERE C/O BILAT KNEE PAIN MOSTLY IN LEFT History of Present Illness HPI Free Text: Patient is a 52-year-old male with past medical history of uncontrolled diabetes mellitus, uncontrolled hypertension, osteoarthritis of bilateral knees. Today he complains of pain in his both knees. It is getting worse for the last one week. He has been using his topical analgesics and that helps some. Patient refuses to get any pain medications besides Tylenol and ibuprofen. 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 He wants to stay away from narcotics. He has not been taking his medications on a regular basis. He is noncompliant with diet and medications. He hasn't taken blood pressure medications for a few days. He has not taken metformin as well. Active Problems 1. Atopic Dermatitis 691.8 2. Diabetes Mellitus 250.00 3. Dyslipidemia 272.4 4. Hay Fever 477.9 5. Hypertension 401.9 6. Hypogonadism 257.2 7. Osteoarthritis Of Knee 715.96 8. Type 2 Diabetes Mellitus 250.00 Past Medical History 1. History of Acute Sinusitis 461.9 2. History of Ankle Injury 959.7 Social History ?? Never A Smoker ?? Never Drank Alcohol Current Meds 1. Clobetasol Propionate E 0.05 % External Cream; APPLY SPARINGLY AND GENTLY MASSAGE INTO AFFECTED AREA(S) TWICE DAILY, use for up to two weeks at a time; Therapy: 63Opj6560 to (Last Rx:[id number]) Requested for: 19Gsy0427 2. Glimepiride 2 MG Oral Tablet; Take 1 tablet twice daily; Therapy: 50Uos3361 to (Last Rx:[id number]) Requested for: 98Bws0134 3. Lisinopril 10 MG Oral Tablet; TAKE 1 TABLET DAILY; Therapy: 13Moh3310 to (Evaluate:83Jli5613) Requested for: 02Oct2012; Last Rx:02Oct2012 4. MetFORMIN HCl 500 MG Oral Tablet; TAKE 2 TABLETS TWICE DAILY; Therapy: 29Jan2012 to (Evaluate:49Xyk5066) Requested for: 50Yll5948; Last Rx:[id number] Allergies 1. Codeine Sulfate TABS 2. Darvocet-N 100 TABS Vitals Vital Signs [Data Includes: Current Encounter] 07Jan2013 10:45AM Temperature 97.9 F Heart Rate 87 Respiration 16 Systolic 184 Diastolic 100 O2 Saturation 98 BMI Calculated 25.77 BSA Calculated 1.94 Height 5 ft 9 in Weight 174 lb Physical Exam Constitutional General appearance: No acute distress, well appearing and well nourished. Pulmonary Auscultation of lungs: Clear to auscultation. Cardiovascular Auscultation of heart: Normal rate and rhythm, normal S1 and S2, without murmurs. Abdomen Abdomen: Non-tender, no masses. Musculoskeletal Slow. Crepitus present in bilateral knee joint. Psychiatric Orientation to person, place and time: Normal. Mood and affect: Normal. Assessment 1. Diabetes Mellitus 250.00 2. Dyslipidemia 272.4 3. Osteoarthritis Of Knee 715.96 Plan 1. Hemoglobin A1C Requested for: 93Nxn9103 Ordered; For: Diabetes Mellitus (250.00); Ordered By: Suzanne Salinas [facility] 14Jan[facility] Under aseptic technique, 1 mL of Kenalog and 0.5 mL of lidocaine was injected in bilateral knees. Patient tolerated procedure well. Patient refuses to get any blood work today. He promises to take medications on a regular basis. Followup in one month. We will do basic blood work. Signatures Electronically signed by : Suzanne Salinas M.D.; Jan 07 2013 11:20AM (Author) ADMIRAL documented in this encounter Plan of Treatment Upcoming Encounters Date Type Department Care Team (Late st Contact Info) Description 06/09/2024 4:20 PM REAR ADMIRAL Office Visit [facility] Family & Internal Medicine [facility] [id number] [place] [address] León Sanchez MD [address] [place] [address] documented as of this encounter Visit Diagnoses Not on filedocumented in this encounter
--- OUTSIDE RECORDS SUMMARY | 2024-04-27 18:28 | XMS_ITS | Encounter Summary ---
Author Organization [facility] Address [facility]6 [facility] 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 Discussed treatment at last visit, mostly compliance issue Verified Results Hemoglobin A1C ( HA1C ) 30Hhd3302 02:25PM Leana Johnson Test Name Result Flag Reference Hemoglobin A1c 8.3 % H <5.7 INCREASED RISK OF DIABETES <5.7% NON-DIABETES 5.7-6.4% INCREASED RISK FOR FUTURE DIABETES > OR = 6.5 CONSISTENT WITH DIABETES STANDARDS OF MEDICAL CARE IN DIABETES-2010 DIABETES CARE, 33(SUPP 1): S1-S61,2009 documented in this encounter Plan of Treatment Upcoming Encounters Date Type Department Care Team (Late st Contact Info) Description 06/09/2024 4:20 PM MARINE PIPE WELDER Office Visit [facility] Family & Internal Medicine [facility] [id number] [place] [phone] León Sanchez [place] [id number] [place] [address] documented as of this encounter Visit Diagnoses Not on filedocumented in this encounter
--- OUTSIDE RECORDS SUMMARY | 2024-04-27 18:28 | XMS_ITS | Encounter Summary ---
Author Organization [facility] Address [address] [place] [address]. [place] [address] [place] [address] Care Team Providers Care Horologist Name Role Phone Unavailable Primary Care Provider Unavailabl e Encounter Details Date Type Department Care Team (Latest Contact Info) Description 04/02/2012 Abstract [facility] Suzanne Salinas MD Social History Tobacco Use Types Packs/Day Years Used Date Smoking Tobacco: Never Assessed Sex and Gender Information Value Date Recorded Sex Assigned at Not on file Legal Sex Male 6:22 PM CDT Gender Identity Not on file Sexual Orientation Straight 03/28/2018 4: 44 PM ENROLLMENT PROCESSOR documented as of this encounter Last Filed Vital Signs Vital Sign Reading Time Taken Comments Blood Pressure 114/76 04/02/2012 8:00 AM ENROLLMENT PROCESSOR Pulse 64 04/02/2012 8:00 AM ENROLLMENT PROCESSOR Temperature - - Respiratory Rate - - Oxygen Saturation - - Inhaled Oxygen Concentration - - Weight 81.2 kg (179 lb) 04/02/2012 8:00 AM ENROLLMENT PROCESSOR Height 175.3 cm (5' 9 ) 04/02/2012 8:00 AM ENROLLMENT PROCESSOR Body Mass Index 26.43 04/02/2012 8:00 AM ENROLLMENT PROCESSOR documented in this encounter Progress Notes * NOHEMI Hall - 04/02/2012 8:00 AM CST Reason For Visit Reason For Visit: Consultation Visit Chief Complaint 1. Physician Consult here for check up. none History of Present Illness HPI Free Text: Reports he has been taking his medications at least 90% percent of the time since MAX. Ha1c 9.4 01/2012. TG 753 and HDL 29. Started Lipofen and Livalo samples MAX. See MAX note for details. Review of Systems Constitutional: negative. Eyes: negative. ENT: negative. Cardiovascular: negative. Respiratory: negative. Gastrointestinal: negative. Genitourinary: negative. Musculoskeletal: negative. Integumentary and Breasts: negative. Neurological: negative. Psychiatric: negative. Endocrine: negative. Hematologic and Lymphatic: negative. Active Problems 1. Acute Sinusitis 461.9 2. Ankle Injury 959.7 3. Diabetes Mellitus 250.00 4. Dyslipidemia 272.4 5. Hay Fever 477.9 6. Hypertension 401.9 Social History ?? Never A Smoker Current Meds 1. Glimepiride 2 MG Oral Tablet; Take 1 tablet twice daily; Therapy: 29Nov2011 to (Last Rx:25Mar2012) Requested for: 25Mar2012 Ordered; For: Diabetes Mellitus (250.00); Rx By: Hillary Jasso; Dispense: 0 Days ; #:60 Tablet; Refill: 1; Verified Transmission to [facility] 435; Last Updated By: Deepthi Hernandez 2. Lipofen 150 MG Oral Capsule; TAKE 1 CAPSULE DAILY WITH A MEAL; Therapy: 01Feb2012 to (Evaluate:02Mar2012); Last Rx:01Feb2012 Ordered; For: Dyslipidemia (272.4); Rx By: Hillary Jasso; Dispense: 30 Days ; #:30 Capsule; Refill:0; Dispense Sample 3. Lisinopril 10 MG Oral Tablet; TAKE 1 TABLET DAILY; Therapy: 29Nov2011 to (Evaluate:28Apr2012) Requested for: 29Jan2012; Last Rx:29Jan2012 Ordered; For: Hypertension (401.9); Rx By: Hillary Jasso; Dispense: 30 Days ; #:30 Tablet; Refill: 2; Verified Transmission to [facility] 435; Last Updated By: Lisa Chowdhury 4. Livalo 4 MG Oral Tablet; Take 1 tablet daily; Therapy: 01Feb2012 to (Evaluate:07Mar2012); Last Rx:01Feb2012 Ordered; For: Dyslipidemia (272.4); Rx By: Hillary Jasso; Dispense: 35 Days ; #:35 Tablet; Refill: 0; Dispense Sample 5. MetFORMIN HCl 500 MG Oral Tablet; TAKE 2 TABLETS TWICE DAILY; Therapy: 29Jan2012 to (Evaluate:28Apr2012) Requested for: 29Jan2012; Last Rx:29Jan2012 Ordered; For: Diabetes Mellitus (250.00); Rx By: Hillary Jasso; Dispense: 30 Days ; #:120 Tablet; Refill: 2; Verified Transmission to [facility] 435; Last Updated By: Lisa Chowdhury 6. Montelukast Sodium 10 MG Oral Tablet; TAKE 1 TABLET DAILY; Therapy: 06Cel1528 to (Evaluate:19Dec2011) Requested for: 85Qkb3348; Last Rx:[id number] Ordered; For: Hay Fever (477.9); Rx By: Subhash Mtz; Dispense: 5 Days ; #:5 Tablet; Refill: 0; Verified Transmission to [facility] 435 Allergies 1. Codeine Sulfate TABS 2. Darvocet-N 100 TABS Vitals [id number] 08:00AM Temperature 98.6 F Heart Rate 64 Respiration 16 Systolic 114 Diastolic 76 BMI Calculated 26.51 BSA Calculated 1.97 Height 5 ft 9 in Weight 179 lb Physical Exam Constitutional General appearance: No acute distress, well appearing and well nourished. Eyes Conjunctiva and lids: No swelling, erythema, or discharge. Pupils and irises: Equal, round and reactive to light. Ears, Nose, Mouth, and Throat External inspection of ears and nose: Normal. Otoscopic examination: Tympanic membrance translucent with normal light reflex. Canals patent without erythema. Oropharynx: Normal with no erythema, edema, exudate or lesions. Pulmonary Respiratory effort: No increased work of breathing or signs of respiratory distress. Auscultation of lungs: Clear to auscultation. Cardiovascular Palpation of heart: Normal PMI, no thrills. Auscultation of heart: Normal rate and rhythm, [...] 1. Diabetes Mellitus 250.00 2. Dyslipidemia 272.4 Plan Diabetes Mellitus (250.00) ?? HGBA1C (Hemoglobin A1c) Requested for: [id number] Ordered; For: Diabetes Mellitus (250.00); Ordered By: Hillary Jasso Perform: [facility] Lab Due: [id number] Diabetes Mellitus (250.00), Dyslipidemia (272.4) ?? Lipid Profile Requested for: 22Pao4970 Ordered; For: Diabetes Mellitus (250.00), Dyslipidemia (272.4); Ordered By: Hillary Jasso Perform:. [facility] Lab Due: [id number] Diabetes Mellitus (250.00), Dyslipidemia (272.4), Hypertension (401.9) ?? Venipuncture In Office Done: [id number] Ordered; For: Diabetes Mellitus (250.00), Dyslipidemia (272.4), Hypertension (401.9); Ordered By: Hillary Jasso Perform: In Office; Last Updated By: Andreina Engle Discussion/Summary Repeat Ha1c and Lipid panel today Follow up with patient with results Patient would be a good candidate for Bydureon if Ha1c not significantly improved Patient states he intends to continue to take his medications Follow up for OV 2-3 months Signatures Electronically signed by : Hillary Jasso NP; Apr 02 2012 9:11AM (Author) LLMENT PROCESSOR documented in this encounter Plan of Treatment Upcoming Encounters Date Type Department Care Team (Late st Contact Info) Description 06/09/2024 4:20 PM ENROLLMENT PROCESSOR Office Visit [facility] Family & Internal Medicine [facility] [address] [place] [address] [place] [address] [place] [address] documented as of this encounter Visit Diagnoses Not on filedocumented in this encounter
--- OUTSIDE RECORDS SUMMARY | 2024-04-27 18:28 | XMS_ITS | Encounter Summary ---
Author Organization [facility] Address [address] [place] [address]. [place] [address] [place] [address] Care Team Providers Care Plate Mounter Name Role Phone Unavailable Primary Care Provider Unavailabl e Encounter Details Date Type Department Care Team (Late st Contact Info) Description 05/12/2013 Abstract [facility] Medical Group Family & Internal Medicine [place] [id number] [place] [address] [place] [address] [address] Social History Tobacco Use Types Packs/Day Years Used Date Smoking Tobacco: Never Assessed Sex and Gender Information Value Date Recorded Sex Assigned at Not on file Legal Sex Male 6:22 PM CDT Gender Identity Not on file Sexual Orientation Straight 03/28/2018 4: 44 PM FINANCIAL DEVELOPER documented as of this encounter Last Filed Vital Signs Vital Sign Reading Time Taken Comments Blood Pressure 160/78 05/12/2013 8:06 AM FINANCIAL DEVELOPER Pulse 86 05/12/2013 8:06 AM FINANCIAL DEVELOPER Temperature - - Respiratory Rate - - Oxygen Saturation - - Inhaled Oxygen Concentration - - Weight 79.4 kg (175 lb) 05/12/2013 8:06 AM FINANCIAL DEVELOPER Height 175.3 cm (5' 9 ) 05/12/2013 8:06 AM FINANCIAL DEVELOPER Body Mass Index 25.84 05/12/2013 8:06 AM FINANCIAL DEVELOPER documented in this encounter Progress Notes * NOHEMI Thurston - 05/12/2013 8:00 AM CST Chief Complaint Chief Complaint Free Text: pt here for review of labs. pt c/o headache yesterday, pt took OTC Tylenol Tension Headache. History of Present Illness Diabetes: The patient is being seen for routine follow-up of Diabetes Mellitus 2. The HbA1c was 8.1% performed on 04/2013. Current treatment includes SAMARA inhibitor, Metformin HCl and Glitazone. See Medication List for current medication(s). Source of information reported and indicates that the patient is not checking blood sugars at home. Caloric intake composed of 5-6 20oz sodas a day ounces of carbonated beverages. No particular diet followed. By report, there is fair compliance with treatment, fair tolerance of treatment and fair symptom control. Current pertinent lifestyle factors include disordered eating and inactivity. HPI Free Text: 52 YOWM Type 2 DM with poor control 2/2 noncompliance with therapies. He reports no exercise, no glucose monitoring and no dietary restrictions. He verbalizes drinking 5-6 20oz sodas each day. Review of Systems Focused-Male: See HPI for pertinent positives. Constitutional: headache. ENT: normal. Cardiovascular: Normal. Respiratory: Normal. Gastrointestinal: Normal. Genitourinary: Normal. Integumentary: Normal. Musculoskeletal: Normal. Neurological: Normal. Psychiatric: Normal. Active Problems 1. Acute Sinusitis 461.9 2. Atopic Dermatitis 691.8 3. Chronic Sinusitis 473.9 4. Diabetes Mellitus 250.00 5. Dyslipidemia 272.4 6. Hay Fever 477.9 7. Hypertension 401.9 8. Hypogonadism 257.2 9. Osteoarthritis Of Knee 715.96 10. Type 2 Diabetes Mellitus 250.00 Past Medical History 1. History of Acute Sinusitis 461.9 2. History of Ankle Injury 959.7 Surgical History Patient indicates no past surgical history. Family History Patient indicates no significant family history of disease. Social History ?? Never A Smoker ?? Never Drank Alcohol Current Meds 1. Glimepiride 2 MG Oral Tablet; Take 1 tablet twice daily; Therapy: 11Jwv9323 to (Evaluate:16Jul2013) Requested for: 17Apr2013; Last Rx:17Apr2013 Ordered; For: Diabetes Mellitus (250.00); Rx By: Leana Johnson; Dispense: 30 Days ; #:60 Tablet; Refill: 2; Verified Transmission to [facility] 435 2. Lisinopril 10 MG Oral Tablet; TAKE 1 TABLET DAILY FOR BLOOD PRESSURE; Therapy: 57Gwv7786 to (Evaluate:16Jul2013) Requested for: 17Apr2013; Last Rx:17Apr2013 Ordered; For: Hypertension (401.9); Rx By: Leana Johnson; Dispense: 30 Days ; #:30 Tablet; Refill:2; Verified Transmission to [facility] 435 3. MetFORMIN HCl 500 MG Oral Tablet; TAKE 2 TABLETS TWICE DAILY; Therapy: 29Jan2012 to (Evaluate:16Jul2013) Requested for: 17Apr2013; Last Rx:17Apr2013 Ordered; For: Diabetes Mellitus (250.00); Rx By: Leana Johnson; Dispense: 30 Days ; #:120 Tablet; Refill: 2; Verified Transmission to [facility] 435 Allergies 1. Codeine Sulfate TABS 2. Darvocet-N 100 TABS Vitals Vital Signs [Data Includes: Current Encounter] 12May2013 08:06AM Temperature 97.8 F Heart Rate 86 Respiration 16 Systolic 160 Diastolic 78 O2 Saturation 98 BMI Calculated 25.92 BSA Calculated 1.95 Height 5 ft 9 in Weight 175 lb Physical Exam Constitutional General appearance: Abnormal. Chronically ill, appears tired and poorly hydrated. Eyes Conjunctiva and lids: No swelling, erythema, or discharge. Pulmonary Respiratory effort: No increased work of breathing or signs of respiratory distress. Auscultation of lungs: Clear to auscultation. Cardiovascular Auscultation of heart: Normal rate and rhythm, normal S1 and S2, without murmurs. Musculoskeletal Gait and station: Normal. Psychiatric Orientation to person, place and time: Normal. Mood and affect: Normal. Assessment 1. Diabetes Mellitus 250.00 Discussion/Summary Discussion Summary Free Text: DM2-Discussed need to monitor glucose at home and follow dietary restrictions. Pt resistent to DM teaching at this time. Offered glucometer for home monitoring, refused. Discussed diet including fruits and vegtables, avoiding soda and high surgar foods as well as carb counting. Pt agreed to limit soda intake to 1 a day and will discuss Diabetic teaching with Nurse Navigator, with his . FU in July for HgA1c and visit at which time he will agree to further discussions regarding, home monitoring, Insulin, diet and increased education. Stressed the adverse effects associated with untreated/under treated DM including effects on kidneys, heart, and skin. Signatures Electronically signed by : Leana Johnson NP; May 12 2013 11:54AM (Author) NCIAL DEVELOPER documented in this encounter Plan of Treatment Upcoming Encounters Date Type Department Care Team (Late st Contact Info) Description 06/09/2024 4:20 PM FINANCIAL DEVELOPER Office Visit [facility] Family & Internal Medicine [facility] [address] [place] [address] León Sanchez [place] [id number] [place] [address] documented as of this encounter Visit Diagnoses Not on filedocumented in this encounter
--- OUTSIDE RECORDS SUMMARY | 2024-04-27 18:28 | XMS_ITS | Encounter Summary ---
Author Organization [facility] Address [facility] [place] [address] [place] [address] Care Team Providers Care Caul Puller Name Role Phone Unavailable Primary Care Provider Unavailabl e Encounter Details Date Type Department Care Team (Latest Contact Info) Description 05/17/2012 Abstract [facility] Group Suzanne Salinas MD Social History Tobacco Use Types Packs/Day Years Used Date Smoking Tobacco: Never Assessed Sex and Gender Information Value Date Recorded Sex Assigned at Not on file Legal Sex Male 6:22 PM CDT Gender Identity Not on file Sexual Orientation Straight 03/28/2018 4: 44 PM WEED ERADICATOR documented as of this encounter Last Filed Vital Signs Vital Sign Reading Time Taken Comments Blood Pressure 150/90 05/17/2012 8:23 AM WEED ERADICATOR Pulse 79 05/17/2012 8:23 AM WEED ERADICATOR Temperature - - Respiratory Rate - - Oxygen Saturation - - Inhaled Oxygen Concentration - - Weight 83 kg (183 lb) 05/17/2012 8:23 AM WEED ERADICATOR Height 175.3 cm (5' 9 ) 05/17/2012 8:23 AM WEED ERADICATOR Body Mass Index 27.02 05/17/2012 8:23 AM WEED ERADICATOR documented in this encounter Progress Notes * Suzanne Salinas MD - 05/17/2012 8:00 AM CST Chief Complaint Chief Complaint Free Text: pt her to discuss meds eg,rma History of Present Illness HPI Free Text: This is a51 year old male with PMH of HTN,DM, HLD and hypogonadism. his DM is uncontrolled.Patient states, I know I am not a good patient, I don't take any medciations as instructed, i only take it when i want to, I take it 3 times a week . My previous PCP was so tired of me and I was sent to Endocronologist but my visit did not go well . I will try to be complaint, but I may not be, Don't be surprised . He denies any chest pain, shortness of breath, appetite is good. He feels good. patients would like to resume getting testoterone injection. Active Problems 1. Acute Sinusitis 461.9 2. Ankle Injury 959.7 3. Diabetes Mellitus 250.00 4. Dyslipidemia 272.4 5. Hay Fever 477.9 6. Hypertension 401.9 Past Medical History Patient indicats no significant past medical history. Surgical History Patient indicates no past surgical history. Family History Patient indicates no significant family history of disease. Social History ?? Never A Smoker ?? Never Drank Alcohol Current Meds 1. Glimepiride 2 MG Oral Tablet; Take 1 tablet twice daily; Therapy: [id number] to (Last Rx:25Mar2012) Requested for: 25Mar2012 Ordered; For: Diabetes Mellitus (250.00); Rx By: Hillary Jasso; Dispense: 0 Days ; #:60 Tablet; Refill: 1; Verified Transmission to [facility]; Last Updated By: Deepthi Hernandez 2. Lipofen 150 MG Oral Capsule; TAKE 1 CAPSULE DAILY WITH A MEAL; Therapy: 01Feb2012 to (Evaluate:02Mar2012); Last Rx:01Feb2012 Ordered; For: Dyslipidemia (272.4); Rx By: Hillary Jasso; Dispense: 30 Days ; #:30 Capsule; Refill:0; Dispense Sample 3. Lisinopril 10 MG Oral Tablet; TAKE 1 TABLET DAILY; Therapy: 29Azg9245 to (Evaluate:28Apr2012) Requested for: 29Jan2012; Last Rx:29Jan2012 Ordered; For: Hypertension (401.9); Rx By: Hillary Jasso; Dispense: 30 Days ; #:30 Tablet; Refill: 2; Verified Transmission to [facility]; Last Updated By: Lisa Chowdhury 4. Livalo 4 MG Oral Tablet; Take 1 tablet daily; Therapy: 01Feb2012 to (Evaluate:07Mar2012); Last Rx:[id number] Ordered; For: Dyslipidemia (272.4); Rx By: Hillary Jasso; Dispense: 35 Days ; #:35 Tablet; Refill: 0; Dispense Sample 5. MetFORMIN HCl 500 MG Oral Tablet; TAKE 2 TABLETS TWICE DAILY; Therapy: 29Jan2012 to (Evaluate:28Apr2012) Requested for: 29Jan2012; Last Rx:29Jan2012 Ordered; For: Diabetes Mellitus (250.00); Rx By: Hillary Jasso; Dispense: 30 Days ; #:120 Tablet; Refill: 2; Verified Transmission to [facility]; Last Updated By: Lisa Chowdhury 6. Montelukast Sodium 10 MG Oral Tablet; TAKE 1 TABLET DAILY; Therapy: 14Dec2011 to (Evaluate:19Dec2011) Requested for: 14Dec2011; Last Rx:14Dec2011 Ordered; For: Hay Fever (477.9); Rx By: Subhash Mtz; Dispense: 5 Days ; #:5 Tablet; Refill: 0; Verified Transmission to [facility] 435 Allergies 1. Codeine Sulfate TABS 2. Darvocet-N 100 TABS Vitals Vital Signs [Data Includes: Current Encounter] 17May2012 08:23AM Temperature 97.8 F Heart Rate 79 Respiration 18 Systolic 150 Diastolic 90 O2 Saturation 99 BMI Calculated 27.11 BSA Calculated 1.99 Height 5 ft 9 in Weight 183 lb Physical Exam Constitutional General appearance: No acute distress, well appearing and well nourished. Ears, Nose, Mouth, and Throat Otoscopic examination: Tympanic membranes translucent with normal light reflex. Canals patent without erythema. Neck Neck: Supple, symmetric, trachea midline, no masses. Pulmonary Auscultation of lungs: Clear to auscultation. Cardiovascular Auscultation of heart: Normal rate and rhythm, normal S1 and S2, no murmurs. Abdomen Abdomen: Non-tender, no masses. Liver and spleen: No hepatomegaly or splenomegaly. Musculoskeletal Gait and station: Normal. Skin Skin and subcutaneous tissue: Normal without rashes or lesions. Neurologic Cranial nerves: Cranial nerves 2-12 intact. Sensation: No sensory loss. Coordination: Normal finger to nose and heel to dhillon. Psychiatric Recent and remote memory: Intact. Mood and affect: Normal. Assessment 1. Dyslipidemia 272.4 2. Hypertension 401.9 3. Hypogonadism 257.2 4. Diabetes Mellitus 250.00 Plan 1. Fenofibrate Micronized 134 MG Oral Capsule; TAKE 1 CAPSULE DAILY; Therapy: 46Mdp6860 to (Evaluate:02Bxb3921); Last Rx:[id number] Ordered; For: Dyslipidemia (272.4); Rx By: Suzanne Salinas; Dispense: 90 Days ; #:90 Capsule; Refill: 1;Transmitted To: [facility] 2. Lovaza 1 GM Oral Capsule; TAKE 2 CAPSULES TWICE DAILY; Therapy: 78Iac4586 to (Evaluate:48Exr8604); Last Rx:[id number] Ordered; For: Dyslipidemia (272.4); Rx By: Suzanne Salinas; Dispense: 30 Days ; #:120 Capsule; Refill: 5; Transmitted To: [facility] This is a non complaint patients with mutiple problems. I discussed with him in detail about DM anduncontrolled HTN. He is at risk for CVA,IN, Neuropathy etc. Hopefully he will be complaint. We will try our best. F up every 3 months. We will do basic blood work in next visit. we will arrange for tetosterone injection in the hospital as patient did it in the past. Signatures Electronically signed by : Suzanne Salinas M.D.; May 17 2012 8:56AM (Author) ERADICATOR documented in this encounter Plan of Treatment Upcoming Encounters Date Type Department Care Team (Late st Contact Info) Description 06/09/2024 4:20 PM WEED ERADICATOR Office Visit [facility] Family & Internal Medicine [facility] [id number] [place] [phone] León Sanchez [place] [id number] [place] [address] documented as of this encounter Visit Diagnoses Not on filedocumented in this encounter
--- OUTSIDE RECORDS SUMMARY | 2024-04-27 18:28 | XMS_ITS | Encounter Summary ---
Author Organization [facility] Address [address] [place] [address]. [place] [address] [place] [address] Care Team Providers Care Private Investigator Name Role Phone Unavailable Primary Care Provider Unavailabl e Encounter Details Date Type Department Care Team (Late st Contact Info) Description 04/17/2013 Abstract [facility] Family & Internal Medicine [facility] [address] [place] [address] [place] [address] [address] Social History Tobacco Use Types Packs/Day Years Used Date Smoking Tobacco: Never Assessed Sex and Gender Information Value Date Recorded Sex Assigned at Not on file Legal Sex Male 6:22 PM CDT Gender Identity Not on file Sexual Orientation Straight 03/28/2018 4: 44 PM MANAGER LINUX documented as of this encounter Last Filed Vital Signs Vital Sign Reading Time Taken Comments Blood Pressure 120/86 04/17/2013 4:09 PM MANAGER LINUX Pulse 95 04/17/2013 4:09 PM MANAGER LINUX Temperature - - Respiratory Rate - - Oxygen Saturation - - Inhaled Oxygen Concentration - - Weight 79.4 kg (175 lb) 04/17/2013 4:09 PM MANAGER LINUX Height 175.3 cm (5' 9 ) 04/17/2013 4:09 PM MANAGER LINUX Body Mass Index 25.84 04/17/2013 4:09 PM MANAGER LINUX documented in this encounter Progress Notes * NOHEMI Thurston - 04/17/2013 4:00 PM CST Reason For Visit Reason For Visit: Acute Follow-Up Visit Chief Complaint Chief Complaint Free Text: pt c/o bad cough still present, worse in the evening, pt can breathe easier. last Sun night pt noticed congestion setting in again, pt felt a little better by Sunday. pt c/o eyes itching all of the time. Sunday left eye itched alot, bump appeared on lower left lid and was sore. bump is clearing up now. History of Present Illness Diabetes: The patient is being seen for Diabetes Mellitus 2. The HbA1c was 8.9% performed on 01/2013. See Medication List for current medication(s). By report, there is fair compliance with treatment, fair tolerance of treatment and fair symptom control. There are no known contributing risk factorsor pertinent lifestyle factors. The patient is currently asymptomatic Hypertension (Follow-Up): The patient presents for follow-up of primary hypertension. The patient states he has been stable with his blood pressure control since the last visit. He has no comorbid illnesses. Symptoms: The patient is currently asymptomatic. Home monitoring: The patient checks his blood pressure sporadically. Medications: The patient is not adherent with his medication regimen. He denies medication side effects. Medication(s): an SAMARA inhibitor. The patient is due for a lipid panel, an eye exam, a serum creatinine and a urine microalbumin. Review of Systems Focused-Male: See HPI for pertinent positives. Constitutional: Normal. Cardiovascular: Normal. Respiratory: Normal. Gastrointestinal: Normal. Genitourinary: Normal. Integumentary: Normal. Musculoskeletal: Normal. Neurological: Normal. Psychiatric: Normal. Other Symptoms: Chronic sinus/allergies. Active Problems 1. Acute Sinusitis 461.9 2. Atopic Dermatitis 691.8 3. Diabetes Mellitus 250.00 4. Dyslipidemia 272.4 5. Hay Fever 477.9 6. Hypertension 401.9 7. Hypogonadism 257.2 8. Osteoarthritis Of Knee 715.96 9. Type 2 Diabetes Mellitus 250.00 Past Medical History 1. History of Acute Sinusitis 461.9 2. History of Ankle Injury 959.7 Surgical History Patient indicates no past surgical history. Family History Patient indicates no significant family history of disease. Social History ?? Never A Smoker ?? Never Drank Alcohol Current Meds 1. Glimepiride 2 MG Oral Tablet; Take 1 tablet twice daily; Therapy: 39Pua4275 to (Last Rx:22Jan2013) Requested for: 22Jan2013 Ordered; For: Diabetes Mellitus (250.00); Rx By: Suzanne Salinas; Dispense: 0 Days ; #:60 Tablet; Refill: 2; Verified Transmission to [facility]; Last Updated By: Ivone Munguia 2. Lisinopril 10 MG Oral Tablet; TAKE 1 TABLET DAILY; Therapy: 93Rgx3146 to (Evaluate:04Bvq7251) Requested for: 14Xqx7456; Last Rx:[id number] Ordered; For: Hypertension (401.9); Rx By: Suzanne Salinas; Dispense: 14 Days ; #:14 Tablet; Refill: 0; Verified Transmission to [facility]; Msg to Pharmacy: PLEASE INFORM PT HE IS DUE FOR F/U;Last Updated By: Chandrika Jennings 3. MetFORMIN HCl 500 MG Oral Tablet; TAKE 2 TABLETS TWICE DAILY; Therapy: 29Jan2012 to (Evaluate:06Rtc4489) Requested for: 15Pei1653; Last Rx:[id number] Ordered; For: Diabetes Mellitus (250.00); Rx By: Suzanne Salinas; Dispense: 30 Days ; #:120 Tablet; Refill: 2; Verified Transmission to [facility]; Last Updated By: Chandrika Jennings Allergies 1. Codeine Sulfate TABS 2. Darvocet-N 100 TABS Vitals Vital Signs [Data Includes: Current Encounter] 17Apr2013 04:09PM Temperature 98.2 F Heart Rate 95 Respiration 16 Systolic 120 Diastolic 86 O2 Saturation 96 BMI Calculated 25.92 BSA Calculated 1.95 Height 5 ft 9 in Weight 175 lb Physical Exam Constitutional General appearance: No [...] Normal. Mood and affect: Normal. Assessment 1. Chronic Sinusitis 473.9 2. Type 2 Diabetes Mellitus 250.00 3. Health Maintenance V70.0 4. Hypogonadism 257.2 5. Diabetes Mellitus 250.00 6. Hypertension 401.9 Plan 1. ENT Referral Outpatient Evaluate and Treat Requested for: 17Apr2013 Ordered; For: Chronic Sinusitis (473.9); Ordered By: Leana Johnson Performed: Due: 01May2013 2. Glimepiride 2 MG Oral Tablet; Take 1 tablet twice daily; Therapy: 85Yuj2150 to (Evaluate:16Jul2013) Requested for: 22Jan2013; Last Rx:17Apr2013 Ordered; For: Diabetes Mellitus (250.00); Rx By: Leana Johnson; Dispense: 30 Days ; #:60 Tablet; Refill: 2; Send To: [facility] 435 3. MetFORMIN HCl 500 MG Oral Tablet; TAKE 2 TABLETS TWICE DAILY; Therapy: 29Jan2012 to (Evaluate:16Jul2013) Requested for: 32Ubi1418; Last Rx:17Apr2013 Ordered; For: Diabetes Mellitus (250.00); Rx By: Leana Johnson; Dispense: 30 Days ; #:120 Tablet; Refill: 2; Send To: [facility] 4. Lipid W/ Calculated LDL Requested for: 17Apr2013 Ordered; For: Dyslipidemia (272.4), Hypertension (401.9); Ordered By: Leana Johnson Perform: [facility] Due: 24Apr2013 5. CBC W Differential Requested for: 17Apr2013 Ordered; For: Health Maintenance (V70.0); Ordered By: Leana Johnson Perform: [facility] Due: 24Apr2013 6. TSH W Reflex Free T4 Requested for: 17Apr2013 Ordered; For: Health Maintenance (V70.0); Ordered By: Leana Johnson Perform: [facility] Due: 24Apr2013 7. Vitamin B12 And Folate Requested for: 17Apr2013 Ordered; For: Health Maintenance (V70.0); Ordered By: Leana Johnson Perform: [facility] Due: 24Apr2013 8. Lisinopril 10 MG Oral Tablet; TAKE 1 TABLET DAILY FOR BLOOD PRESSURE; Therapy: 26Obw6709 to (Evaluate:16Jul2013) Requested for: 97Oci6109; Last Rx:17Apr2013 Ordered; For: Hypertension (401.9); Rx By: Leana Johnson; Dispense: 30 Days ; #:30 Tablet; Refill:2; Send To: [facility] 435 9. QU-TESTOSTERONE, FREE, BIO AND TOTAL, LC/MS/MS [id number] Requested for: 17Apr2013 Ordered; For: Hypogonadism (257.2); Ordered By: Leana Johnson Perform: [facility] Due: 24Apr2013 10. Compr Metabolic Prof ( CMP ) Requested for: 17Apr2013 Ordered; For: Type 2 Diabetes Mellitus (250.00); Ordered By: Leana Johnson Perform: [facility] Due: 24Apr2013 11. Hemoglobin A1C Requested for: 17Apr2013 Ordered; For: Type 2 Diabetes Mellitus (250.00); Ordered By: Leana Johnson Perform: [facility] Due: 24Apr2013 Discussion/Summary Discussion Summary Free Text: DM2-Discussed medications, diet, exercise and glucose monitoring. Refilled Metformin, Glimiperide and ordered labs. HTN- Refilled Lisinopril, ordered labs and stressed compliance and follow up. Chronic Sinusitis-ENT referral discussed and initiated. Instructed to continue taking current OTC meds FU 2-3 weeks after labs are drawn Signatures Electronically signed by : Leana Johnson NP; Apr 17 2013 5:56PM (Author) GER LINUX documented in this encounter Plan of Treatment Upcoming Encounters Date Type Department Care Team (Late st Contact Info) Description 06/09/2024 4:20 PM MANAGER LINUX Office Visit [facility] Medical Group Family & Internal Medicine [facility] [address] [place] [phone] León Sanchez [place] [id number] [place] [address] documented as of this encounter Visit Diagnoses Not on filedocumented in this encounter
--- OUTSIDE RECORDS SUMMARY | 2024-04-27 18:28 | XMS_ITS | Encounter Summary ---
Author Organization [facility] Address [facility] [place] [address] [place] [address] Care Team Providers Care Instructional Coach Name Role Phone Unavailable Primary Care Provider Unavailabl e Encounter Details Date Type Department Care Team (Latest Contact Info) Description 01/14/[address] [facility] [place] [address] [id number] Social History Tobacco Use Types Packs/Day Years Used Date Smoking Tobacco: Never Assessed Sex and Gender Information Value Date Recorded Sex Assigned at Not on file Legal Sex Male 6:22 PM CDT Gender Identity Not on file Sexual Orientation Straight 03/28/2018 4: 44 PM PRESS WASHER documented as of this encounter Plan of Treatment Upcoming Encounters Date Type Department Care Team (Late st Contact Info) Description 06/09/2024 4:20 PM PRESS WASHER Office Visit [facility] Medical [facility] Family & Internal Medicine [facility] [address] [place] [address] [place] [address] [place] [address] documented as of this encounter Visit Diagnoses Not on filedocumented in this encounter
--- OUTSIDE RECORDS SUMMARY | 2024-04-27 18:28 | XMS_ITS | Encounter Summary ---
Author Organization [facility] Address [facility] [place] [address] [place] [address] Care Team Providers Care Gl Accountant Name Role Phone Unavailable Primary Care Provider Unavailabl e Encounter Details Date Type Department Care Team (Late st Contact Info) Description 04/29/2013 Abstract [facility] Family & Internal Medicine [facility] [address] [place] [address] [place] [address] [address] Social History Tobacco Use Types Packs/Day Years Used Date Smoking Tobacco: Never Assessed Sex and Gender Information Value Date Recorded Sex Assigned at Not on file Legal Sex Male 6:22 PM CDT Gender Identity Not on file Sexual Orientation Straight 03/28/2018 4: 44 PM CONTACT LENS LATHE OPERATOR documented as of this encounter Plan of Treatment Upcoming Encounters Date Type Department Care Team (Late st Contact Info) Description 06/09/2024 4:20 PM CONTACT LENS LATHE OPERATOR Office Visit [facility] Family & Internal Medicine [facility] [address] [place] [address] [place]ón [place] [address] [place], [place] [id number] documented as of this encounter Visit Diagnoses Not on filedocumented in this encounter
--- OUTSIDE RECORDS SUMMARY | 2024-04-27 18:28 | XMS_ITS | Encounter Summary ---
Author Organization [facility] Address [facility]6 [facility] [place] [address] [place] [address] Care Team Providers Care Licensed Psychiatric Technician Name Role Phone Unavailable Primary Care Provider Unavailabl e Encounter Details Date Type Department Care Team (Latest Contact Info) Description 04/30/2013 Abstract [facility] Medical Group Social History Tobacco Use Types Packs/Day Years Used Date Smoking Tobacco: Never Assessed Sex and Gender Information Value Date Recorded Sex Assigned at Not on file Legal Sex Male 6:22 PM CDT Gender Identity Not on file Sexual Orientation Straight 03/28/2018 4: 44 PM STEAM PRESS OPERATOR documented as of this encounter Progress Notes * NOHEMI Thurston - 04/30/2013 1:58 PM CST Message No changes required at this time. FU in 2-3 weeks as instructed at last visit. Verified Results CBC W Differential 29Apr2013 03:33PM Leana Johnson Test Name Result Flag Reference White Blood Cell Count (WBC) 7.8 K/UL 4.4-11.0 Red Blood Cell Count (RBC) 4.89 M/UL 4.5-5.9 Hemoglobin (HGB) 15.1 G/DL 14.0-17.5 Hematocrit (HCT) 44.2 % 41.5-50.4 Mean Corpuscular Volume (MCV) 90.4 FL 80-96 Mean Corpuscular Hgb (MCH) 30.9 PG 26.5-31.4 Mean Corpuscular Hgb Conc (MCH 34.2 G/DL 31.9-34.8 Red Cell Distrib Width (RDW) 12.0 % L 12.3-14.3 Platelet Count (PLT) 212 K/UL 151-353 Mean Platelet Volume (MPV) 12.2 FL H 9.7-11.9 Basophils % (Auto) 1.7 % H 0.0-1.3 Eosinophils % (Auto) 1.2 % 0.0-5.6 Neutrophils % (Auto) 61.7 % 42.1-71.9 Lymphocytes % (Auto) 28.6 % 15.8-45.0 Monocytes % (Auto) 6.3 % 5.7-12.5 IMMATURE GRANULOCYTES 0.5 % 0.0-0.5 Total Absolute Neutrophils 4.8 K/UL 1.4-6.0 WBC Morphology NORMAL PLATELET EVALUATION NORMAL RBC Morphology NORMAL Compr Metabolic Prof ( CMP ) 29Apr2013 03:33PM Leana Johnson Test Name Result Flag Reference Sodium (Na) 140 MMOL/L 136-145 Potassium (K) 4.4 MMOL/L 3.5-5.1 Chloride (Cl) 105 MMOL/L 98-107 Carbon Dioxide (CO2) 28.0 MMOL/L 22-29 Blood Urea Nitrogen (BUN) 16 MG/DL 8.4-24.7 >60 GFR Reference Range: Kidney Failure - <15mL/min Chronic Kidney Disease - <60mL/min Normal Kidney Function - >60mL/min GFR calculation is not recommended for Patients less than 18 years or greater than 70 years as per the national Kidney Foundation. If the patient is -[place], multiply results by 1.21 Glucose 185 MG/DL H 70-105 Calcium 9.8 MG/DL 8.4-10.2 Total Bilirubin 1.1 MG/DL 0.2-1.2 AST/GOT 16 UNITS/L 5-34 ALT/GPT 21 UNITS/L 6-55 Alkaline Phosphatase (ALKP) 53 UNITS/L 40-115 CREATININE 0.9 MG/DL 0.72-1.25 Total Protein 6.6 G/DL 6.4-8.3 ALBUMIN 3.9 G/DL 3.5-5.0 Anion Gap 11.4 MMOL/L 10.0-24.0 OSMOLALITY CALC 285 MOSM/KG 271-290 BUN CREATININE RATIO 17.8 6.0-26.0 A:G Ratio 1.4 RATIO 1.1-1.9 Lipid W/ Calculated LDL 29Apr2013 03:33PM Leana Johnson Test Name Result Flag Reference CHOLESTEROL 185 MG/DL <200 TRIGLYCERIDE 266 MG/DL H <150 HDL CHOLESTEROL 37 MG/DL L >45 LDL CALCULATED 94.8 MG/L <130 CHOL/HDL RATIO 5.00 INTERPRETATION OF RESULTS NHLBI RECOMMENDED RANGES CHOLESTEROL MG/DL LDL MG/DL DESIRABLE <200 <130 BORDERLINE 200-239 130-159 HIGH RISK >240 >160 REFERENCE VALUE FOR HDL CHOLESTEROL RISK LEVEL MALE MG/DL FEMALE MG/DL DECREASED >45 >55 AVERAGE 45 55 INCREASED <45 <55 TSH W Reflex Free T4 29Apr2013 03:33PM Leana Johnson Test Name Result Flag Reference TSH w Reflex Free T4 1.19 uIU/mL 0.35-4.94 FREE T4 NOT INDICATED Vitamin B12 And Folate 29Apr2013 03:33PM Leana Johnson Test Name Result Flag Reference Vitamin B12 529 pg/mL 213-816 Folate. 7.16 ng/mL 7.0-31.4 M PRESS OPERATOR documented in this encounter Plan of Treatment Upcoming Encounters Date Type Department Care Team (Late st Contact Info) Description 06/09/2024 4:20 PM STEAM PRESS OPERATOR Office Visit [facility] Medical Group Family & Internal Medicine [facility] [address] [place] [phone] [place] [address] [place] [address] documented as of this encounter Visit Diagnoses Not on filedocumented in this encounter
--- OUTSIDE RECORDS SUMMARY | 2024-04-27 18:28 | XMS_ITS | Encounter Summary ---
Author Organization [facility] Address [address] [place] [address]. [place] [address] [place] [address] Care Team Providers Care Ski Maker Name Role Phone Unavailable Primary Care Provider Unavailabl e Encounter Details Date Type Department Care Team (Latest Contact Info) Description 05/01/2013 Abstract [facility] Social History Tobacco Use Types Packs/Day Years Used Date Smoking Tobacco: Never Assessed Sex and Gender Information Value Date Recorded Sex Assigned at Not on file Legal Sex Male 6:22 PM CDT Gender Identity Not on file Sexual Orientation Straight 03/28/2018 4: 44 PM LATHE TENDER documented as of this encounter Progress Notes * Generic Conversion MD Javier - 05/01/2013 8:14 AM CST Message Recorded as Task Date: 04/30/2013 01:58 PM, Created By: Leana Johnson Task Name: Call Patient with results Assigned To: Ivone Stokes Regarding Patient: Sonny Singleton, Status: In Progress Comment: Leana Johnson - 30 Apr 2013 1:58 PM Patient No changes required at this time. FU in 2-3 weeks as instructed at last visit. Kam Little - 30 Apr 2013 3:41 PM TASK EDITED lvm to call the office. Kam Little - 30 Apr 2013 3:41 PM TASK IN PROGRESS Ivone Stokes - 30 Apr 2013 5:35 PM TASK EDITED lvm for pt to return call to review results Ivone Stokes - 01 May 2013 8:14 AM TASK EDITED spoke with pt, informed him that no change in treatment at this time, pt vocalized understanding. pt will keep his F/U appt on 05/12/13 at 8 am. Signatures Electronically signed by : Ivone Stokes, ; May 01 2013 8:15AM (Author) E TENDER documented in this encounter Plan of Treatment Upcoming Encounters Date Type Department Care Team (Late st Contact Info) Description 06/09/2024 4:20 PM LATHE TENDER Office Visit [facility] Family & Internal Medicine - [place] [id number] [place] [address] [place] [address] [place] [address] documented as of this encounter Visit Diagnoses Not on filedocumented in this encounter
--- OUTSIDE RECORDS SUMMARY | 2024-04-27 18:28 | XMS_ITS | Encounter Summary ---
Author Organization [facility] Address [address] [place] [address]. [place] [address] [place] [address] Care Team Providers Care Value Stream Leader Name Role Phone León Sanchez MD Primary Care Provider [phone]- [phone] Encounter Details Date Type Department Care Team (Late st Contact Info) Description 08/15/2012 Abstract [facility] [address] [place] [address] Suzanne Salinas MD Social History [...] Sexual Orientation Straight 03/28/2018 4: 44 PM DIRECT MAIL MANAGER documented as of this encounter Plan of Treatment Upcoming Encounters Date Type Department Care Team (Late st Contact Info) Description 06/09/2024 4:20 PM DIRECT MAIL MANAGER Office Visit [facility] Family & Internal Medicine [facility] [address] [place] [address] [place] [address] [place] [address] documented as of this encounter Visit Diagnoses Diagnosis Pain in joint, lower leg documented in this encounter Care Teams Value Stream Leader Relationship Specialty Start [place] [address] [place] [address] PCP - General FAMILY PRACTICE 02/27/18 documented as of this encounter
--- OUTSIDE RECORDS SUMMARY | 2024-04-27 18:28 | XMS_ITS | Encounter Summary ---
Author Organization [facility] Address [facility] 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 documented as of this encounter Last Filed Vital Signs Vital Sign Reading Time Taken Comments Blood Pressure 130/90 08/06/2012 11:35 AM CDT Pulse 85 08/06/2012 11:35 AM CDT Temperature - - Respiratory Rate - - Oxygen Saturation - - Inhaled Oxygen Concentration - - Weight 81.2 kg (179 lb) 08/06/2012 11:35 AM CDT Height 175.3 cm (5' 9 ) 08/06/2012 11:35 AM CDT Body Mass Index 26.43 08/06/2012 11:35 AM CDT documented in this encounter Progress Notes * Suzanne Salinas MD - 08/06/2012 11:30 AM CDT Chief Complaint Chief Complaint Free Text: pt here c/o bilat knee pain and left foot pain eg,rma History of Present Illness HPI Free Text: Patient complains of B/L Knee pain. It is a chronic problem. Pain is going on for several years. Recently it is worsening. It is usually worse in winter and cold.Pain is persitent,localized in knees,it gets swollen sometimes.He has receive steroid injection in the past.XR did show Osteoarthritis. Patient has been taking his medicatins regularly and will try to keep up with his appointment. BP is fairly controlled. Active Problems 1. Acute Sinusitis 461.9 2. Ankle Injury 959.7 3. Diabetes Mellitus 250.00 4. Dyslipidemia 272.4 5. Hay Fever 477.9 6. Hypertension 401.9 7. Hypogonadism 257.2 Past Medical History Patient indicats no significant past medical history. Surgical History Patient indicates no past surgical history. Family History Patient indicates no significant family history of disease. Social History ?? Never A Smoker ?? Never Drank Alcohol Current Meds 1. Fenofibrate Micronized 134 MG Oral Capsule; TAKE 1 CAPSULE DAILY; Therapy: 17May2012 to (Evaluate:[id number]) Requested for: 17May2012; Last Rx:17May2012 Ordered; For: Dyslipidemia (272.4); Rx By: Suzanne Salinas; Dispense: 90 Days ; #:90 Capsule; Refill: 1;Verified Transmission to [facility] 435 2. Glimepiride 2 MG Oral Tablet; Take 1 tablet twice daily; Therapy: 29Nov2011 to (Last Rx:13Jun2012) Requested for: 13Jun2012 Ordered; For: Diabetes Mellitus (250.00); Rx By: Suzanne Slainas; Dispense: 0 Days ; #:60 Tablet; Refill: 2; Verified Transmission to [facility]; Last Updated By: Chandrika Jennings 3. Lipofen 150 MG Oral Capsule; TAKE 1 CAPSULE DAILY WITH A MEAL; Therapy: 01Feb2012 to (Evaluate:02Mar2012); Last Rx:01Feb2012 Ordered; For: Dyslipidemia (272.4); Rx By: Hillary Jasso; Dispense: 30 Days ; #:30 Capsule; Refill:0; Dispense Sample 4. Lisinopril 10 MG Oral Tablet; TAKE 1 TABLET DAILY; Therapy: [id number] to (Evaluate:[id number]) Requested for: 13Jun2012; Last Rx:[id number] Ordered; For: Hypertension (401.9); Rx By: Suzanne Salinas; Dispense: 30 Days ; #:30 Tablet; Refill: 2; Verified Transmission to [facility]; Last Updated By: Chandrika Jennings 5. Livalo 4 MG Oral Tablet; Take 1 tablet daily; Therapy: 01Feb2012 to (Evaluate:07Mar2012); Last Rx:01Feb2012 Ordered; For: Dyslipidemia (272.4); Rx By: Hillary Jasso; Dispense: 35 Days ; #:35 Tablet; Refill: 0; Dispense Sample 6. Lovaza 1 GM Oral Capsule; TAKE 2 CAPSULES TWICE DAILY; Therapy: 17May2012 to (Evaluate:49Iry3964) Requested for: 17May2012; Last Rx:17May2012 Ordered; For: Dyslipidemia (272.4); Rx By: Suzanne Salinas; Dispense: 30 Days ; #:120 Capsule; Refill: 5; Verified Transmission to [facility] 435 7. MetFORMIN HCl 500 MG Oral Tablet; TAKE 2 TABLETS TWICE DAILY; Therapy: 29Jan2012 to (Evaluate:28Apr2012) Requested for: 29Jan2012; Last Rx:29Jan2012 Ordered; For: Diabetes Mellitus (250.00); Rx By: Hillary Jasso; Dispense: 30 Days ; #:120 Tablet; Refill: 2; Verified Transmission to [facility]; Last Updated By: Lisa Chowdhury Allergies 1. Codeine Sulfate TABS 2. Darvocet-N 100 TABS Vitals Vital Signs [Data Includes: Current Encounter] 06Aug2012 11:35AM Heart Rate 85 Respiration 18 Systolic 130 Diastolic 90 O2 Saturation 99 BMI Calculated 26.51 BSA Calculated 1.97 Height [...] murmurs. Abdomen Abdomen: Non-tender, no masses. Musculoskeletal Gait and station: Normal. Tenderness present inB/L knee joint,ROM is normal,crepitus present. Skin Skin and subcutaneous tissue: Normal without rashes or lesions. Psychiatric Orientation to person, place and time: Normal. Mood and affect: Normal. Assessment 1. Diabetes Mellitus 250.00 2. Hypertension 401.9 3. Osteoarthritis Of Knee 715.96 Plan 1. Call if: Your blood sugar is still over 300 after taking insulin. Done: 06Aug2012 Ordered; For: Diabetes Mellitus (250.00); Ordered By: Suzanne Salinas; Last Updated By: Brittany Stone We will continue with current meds. We will give him topical analgesics. Under aseptic technique kenalog 40mg and 1ml of lidocaine was injected in the left knee.Patient tolerated procedure well. F up in one month. He is due for basic blood work. Signatures Electronically signed by : Suzanne Salinas M.D.; Aug 06 2012 8:34PM (Author) N CHAINER documented in this encounter Plan of Treatment Upcoming Encounters Date Type Department Care Team (Late st Contact Info) Description 06/09/2024 4:20 PM GREEN CHAINER Office Visit [facility] Family & Internal Medicine [facility] [address] [place] [address] [place] [address] [place] [address] documented as of this encounter Visit Diagnoses Not on filedocumented in this encounter
--- OUTSIDE RECORDS SUMMARY | 2024-04-27 18:28 | XMS_ITS | Encounter Summary ---
Author Organization [facility] Address [address] [place] [address]. [place] [address] [place] [address] Care Team Providers Care Layboy Operator Name Role Phone León Sanchez MD Primary Care Provider [phone]- [phone] Encounter Details Date Type Department Care Team (Late st Contact Info) Description 08/13/2013 Abstract [facility] [address] [place] [address] Leana Johnson APNP Social History [...] Sexual Orientation Straight 03/28/2018 4: 44 PM LEADERSHIP COACH documented as of this encounter Plan of Treatment Upcoming Encounters Date Type Department Care Team (Late st Contact Info) Description 06/09/2024 4:20 PM LEADERSHIP COACH Office Visit [facility] Family & Internal Medicine [facility] [address] [place] [address] [place] [address] [place] [address] documented as of this encounter Visit Diagnoses Diagnosis Type 2 or unspecified type diabetes mellitus (CMS/HCC [facility]/HCC) documented in this encounter Care Teams Layboy Operator Relationship Specialty Start [place] [address] [place] [address] PCP - General FAMILY PRACTICE 02/27/18 documented as of this encounter
--- OUTSIDE RECORDS SUMMARY | 2024-04-27 18:28 | XMS_ITS | Encounter Summary ---
Author Organization [facility] Address [address] [place] [address]. [place] [address] [place] [address] Care Team Providers Care Wound Care Nurse Name Role Phone Unavailable Primary Care Provider Unavailabl e Encounter Details Date Type Department Care Team (Late st Contact Info) Description 12/23/2013 Abstract [facility] Family & Internal Medicine [facility] [address] [place] [address] [place] [address] [address] Social History Tobacco Use Types Packs/Day Years Used Date Smoking Tobacco: Never Assessed Sex and Gender Information Value Date Recorded Sex Assigned at Not on file Legal Sex Male 6:22 PM CDT Gender Identity Not on file Sexual Orientation Straight 03/28/2018 4: 44 PM 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 History of Present Illness The patient is being seen for a routine clinic follow-up of joint pain. The etiology is undetermined. The patient presents with complaints of gradual onset of frequent episodes of moderate bilateral shoulder, bilateral elbow, bilateral hip, bilateral knee and bilateral ankle joint pain, described as aching. Episodes started about 4-5 years ago. His symptoms are caused by no known event. Previous Evaluation: Pt reports increasing generalized joint pain and stiffness. He has been seen by Ortho in past and received PT with limited results. The patient is currently experiencing symptoms. The patient presents for follow-up of primary hypertension. The patient states he has been stable with his blood pressure control since the last visit. He has no significant interval events. Symptoms: The patient is currently asymptomatic. Medications: The patient is adherent with his medication regimen. He denies medication side effects. Disease Management: The patient is doing well with his blood pressure goals. Review of Systems See HPI for pertinent [...] History of Osteoarthritis of knee (715.96) (M17.9) Family History Mother 1. Family history of [...] Tablet; TAKE 1 TABLET TWICE DAILY; Therapy: 19Gje0449 to (Evaluate:14Jan2014) Requested for: 84Cpd5077; Last Rx:[id number] Ordered 2. Lisinopril 10 MG Oral Tablet; TAKE ONE TABLET BY MOUTH ONCE DAILY FOR BLOOD PRESSURE; Therapy: 71Xxq4864 to (Evaluate:76Xnc8608) Requested for: 73Oxu1282; Last Rx:[id number] Ordered 3. MetFORMIN HCl - 500 MG Oral Tablet; TAKE 2 TABLETS TWICE DAILY; Therapy: 29Jan2012 to (Evaluate:14Jan2014) Requested for: 29Bnp8249; Last Rx:[id number] Ordered Allergies 1. Codeine Sulfate TABS 2. Darvocet-N 100 TABS Vitals Recorded by : Ivone Stokes at [id number] 08:44AM Temperature 97.7 F Heart Rate 80 Respiration 16 Systolic 136 Diastolic 90 O2 Saturation 99 Height 5 ft 9 in Weight 180 lb BMI Calculated 26.58 BSA Calculated 1.98 Physical Exam Constitutional General appearance: No acute distress, well appearing and well nourished. Poor dental hygeine 2/2 chewing tobacco use. Pulmonary Respiratory effort: No increased work of breathing or signs of respiratory distress. Auscultation of lungs: Clear to auscultation. Cardiovascular Auscultation of heart: Normal rate and rhythm, normal S1 and S2, without murmurs. Musculoskeletal Gait and station: Normal. Inspection/palpation of joints, bones, and muscles: Normal. Psychiatric Orientation to person, place and time: Normal. Mood and affect: Normal. Assessment 1. Hypertension (401.9) (I10) 2. Arthritis, multiple joint involvement (716.99) (M12.9) Plan Arthritis, multiple joint involvement 1. Rheumatoid Factor ( RA ) ( RF ) Status: Hold For - Manual Activation Requested for: 14Jan2014 Perform: [facility] Due: 13Feb2014; Ordered; For: Arthritis, multiple joint involvement; Ordered By: Leana Johnson Diabetes mellitus 2. Basic Metabolic Prof ( BMP ) Status: Hold For - Exact Date,Manual Activation Requested for: Approx 16Jan2014 Perform: [facility] ; Last Updated By: Ivone Stokes; 12/23/2013 8:49:25 AM; Ordered; For: Diabetes mellitus; Ordered By: Leana Johnson 3. Hemoglobin A1C ( HA1C ) Status: Hold For - Exact Date,Manual Activation Requested for: Approx 16Jan2014 Perform: [facility] ; Last Updated By: Ivone Stokes; 12/23/2013 8:49:24 AM; Ordered; For: Diabetes mellitus; Ordered By: Leana Johnson Dyslipidemia 4. Lipid W Direct LDL Status: Hold For - Exact Date,Manual Activation Requested for: Approx 16Jan2014 Perform: [facility] ; Last Updated By: Ivone Stokes; 12/23/2013 8:49:25 AM; Ordered; For: Dyslipidemia; Ordered By: Leana Johnson Discussion/Summary HTN- Stable at this visit. No changes made. Continue lifestyle modifications including diet, exercise and home monitoring. Joint pain- Pt reports increased joint aches to multiple locations. Discussed options including Ortho consult, PT and Rheumatology consult. Pt agreed to start with labs for RA at next draw in Jan. Hemaykelll decide about further options at that time. FU in 3 months Signatures Electronically signed by : Leana Johnson NP; Dec 23 2013 2:03PM SECURITY SERVICES SPECIALIST (Author) documented in this encounter Plan of Treatment Upcoming Encounters Date Type Department Care Team (Late st Contact Info) Description 06/09/2024 4:20 PM SECURITY SERVICES SPECIALIST Office Visit [facility] Family & Internal Medicine - [place] [id number] [place] [address] León Sanchez MD [address] [place] [address] documented as of this encounter Visit Diagnoses Not on filedocumented in this encounter
--- OUTSIDE RECORDS SUMMARY | 2024-04-27 18:28 | XMS_ITS | Encounter Summary ---
Author Organization [facility] Address [address] [place] [address]. [place] [address] [place] [address] Care Team Providers Care Account Management Specialist Name Role Phone León Sanchez MD Primary Care Provider [phone] [phone] Encounter Details Date Type Department Care Team (Late st Contact Info) Description 04/29/2013 Abstract [facility] [address] [place] [address] Leana Johnson APNP Social History [...] Sexual Orientation Straight 03/28/2018 4: 44 PM BED TEACHER documented as of this encounter Plan of Treatment Upcoming Encounters Date Type Department Care Team (Late st Contact Info) Description 06/09/2024 4:20 PM BED TEACHER Office Visit [facility] Family & Internal Medicine [facility] [address] [place] [address] [place] [address] [place] [address] documented as of this encounter Visit Diagnoses Diagnosis Routine general medical examination at a health care facility documented in this encounter Care Teams Account Management Specialist Relationship Specialty Start [place] [address] [place] [address] PCP - General FAMILY PRACTICE 02/27/18 documented as of this encounter
--- OUTSIDE RECORDS SUMMARY | 2024-04-27 18:28 | XMS_ITS | Encounter Summary ---
Author Organization [facility] Address Formerly [facility], [facility] 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 Rash History of Present Illness HPI Free Text: itchy rash for about 3 weeks. no new exposures but was in [place] several weeks ago. also has noted scalp to be itchy and sensitive to products with very dry hair and skin. no fever or drainage from areas. has felt fine. doesn't check blood sugars Review of Systems Focused-Male: Constitutional: Normal. ENT: normal. Cardiovascular: Normal. Respiratory: Normal. Integumentary: itching, dry skin and skin rash, but no skin lesions, no change in a mole and no unusual growth on the skin. Neurological: Normal. Psychiatric: Normal. Active Problems 1. Diabetes Mellitus 250.00 2. Dyslipidemia 272.4 3. Hay Fever 477.9 4. Hypertension 401.9 5. Hypogonadism 257.2 6. Osteoarthritis Of Knee 715.96 7. Type 2 Diabetes Mellitus 250.00 Past Medical History 1. History of Acute Sinusitis 461.9 2. History of Ankle Injury 959.7 Surgical History Patient indicates no past surgical history. Family History Patient indicates no significant family history of disease. Social History ?? Never A Smoker ?? Never Drank Alcohol Current Meds 1. Glimepiride 2 MG Oral Tablet; Take 1 tablet twice daily; Therapy: 27Cmm3108 to (Last Rx:[id number]) Requested for: 05Xyg8800 Ordered; For: Diabetes Mellitus (250.00); Rx By: Suzanne Salinas; Dispense: 0 Days ; #:60 Tablet; Refill: 2; Verified Transmission to [facility]; Last Updated By: Chandrika Jennings 2. Lisinopril 10 MG Oral Tablet; TAKE 1 TABLET DAILY; Therapy: 45Nvn9033 to (Evaluate:[id number]) Requested for: 02Oct2012; Last Rx:02Oct2012 Ordered; For: Hypertension (401.9); Rx By: Suzanne Salinas; Dispense: 30 Days ; #:30 Tablet; Refill: 2; Verified Transmission to [facility]; Last Updated By: Deepthi Hernandez 3. MetFORMIN HCl 500 MG Oral Tablet; TAKE 2 TABLETS TWICE DAILY; Therapy: 29Jan2012 to (Evaluate:39Oci0230) Requested for: 12Jnm2619; Last Rx:[id number] Ordered; For: Diabetes Mellitus (250.00); Rx By: Suzanne Salinas; Dispense: 30 Days ; #:120 Tablet; Refill: 2; Verified Transmission to [facility]; Last Updated By: Chandrika Jennings Allergies 1. Codeine Sulfate TABS 2. Darvocet-N 100 TABS Vitals Vital Signs [Data Includes: Current Encounter] 23Whm9178 01:10PM Temperature 97.9 F Heart Rate 92 Respiration 16 Systolic 150 Diastolic 76 BMI Calculated 25.92 BSA Calculated 1.95 Weight 175 lb Physical Exam Constitutional General appearance: No acute distress, well appearing and well nourished. Eyes Conjunctiva and lids: No swelling, erythema, or discharge. Pulmonary Respiratory effort: No increased work of breathing or signs of respiratory distress. Skin Skin and subcutaneous tissue: Abnormal. Skin with dry flaky appearance, scalp dry with mild rednesswithout distinct lesions. Examination of the skin for lesions: Abnormal. [place] macular dry irregularly bordered pink lesions of various sizes with papular feel along lateral right knee and elbows. no induration or swelling andno crusting. Psychiatric Orientation to person, place and time: Normal. Mood and affect: Normal. Assessment 1. Atopic Dermatitis 691.8 Plan 1. Clobetasol Propionate E 0.05 % External Cream; APPLY SPARINGLY AND GENTLY MASSAGE INTO AFFECTED AREA(S) TWICE DAILY, use for up to two weeks at a time; Therapy: 27Zfs3764 to (Last Rx:[id number]) Ordered; For: Atopic Dermatitis (691.8); Rx By: Reji Carrillo; Dispense: 0 Days ; #:1 X 60 GM Tube; Refill: 1; Transmitted To: [facility] 435 2. PredniSONE 20 MG Oral Tablet; take 1 tab bid x 5 days the 1 tab daily for 3 days; Therapy: 55Kwq9280 to (Last Rx:[id number]) Ordered; For: Atopic Dermatitis (691.8); Rx By: Reji Carrillo; Dispense: 0 Days ; #:13 Tablet; Refill: 0; Transmitted To: [facility] 435 cool baths or showers, mild soap and detergent for sensitive skin, moisturize skin after bathing. use selsun blue shampoo for hair/scalp. recheck in two weeks if not improved. Signatures Electronically signed by : Deepthi Hrenandez L.P.N.; Oct 16 2012 1:12PM (Author) Electronically signed by : Reji Carrillo NP; Oct 16 2012 2:04PM (Author) L INSPECTOR SHUTTLE documented in this encounter Plan of Treatment Upcoming Encounters Date Type Department Care Team (Late st Contact Info) Description 06/09/2024 4:20 PM FINAL INSPECTOR SHUTTLE Office Visit [facility] Medical Group Family & Internal Medicine [facility] [address] [place] [address] [place] [address] [place] [address] documented as of this encounter Visit Diagnoses Not on filedocumented in this encounter
--- OUTSIDE RECORDS SUMMARY | 2024-04-27 18:28 | XMS_ITS | Encounter Summary ---
Author Organization [facility] Address [address] [place] [address]. [place] [address] [place] [address] Care Team Providers Care Care Giver Name Role Phone Unavailable Primary Care Provider Unavailabl e Encounter Details Date Type Department Care Team (Late st Contact Info) Description 08/19/2013 Abstract [facility] Medical Group Family & Internal Medicine [address] [address] Leana Johnson APNP Social History Tobacco Use Types Packs/Day Years Used Date Smoking Tobacco: Never Assessed Sex and Gender Information Value Date Recorded Sex Assigned at Not on file Legal Sex Male 6:22 PM CDT Gender Identity Not on file Sexual Orientation Straight 03/28/2018 4: 44 PM PHYSICIAN ASST documented as of this encounter Last Filed Vital Signs Vital Sign Reading Time Taken Comments Blood Pressure 142/82 08/19/2013 1:25 PM CDT Pulse 94 08/19/2013 1:25 PM CDT Temperature - - Respiratory Rate - - Oxygen Saturation - - Inhaled Oxygen Concentration - - Weight 80.7 kg (178 lb) 08/19/2013 1:25 PM CDT Height 175.3 cm (5' 9 ) 08/19/2013 1:25 PM CDT Body Mass Index 26.29 08/19/2013 1:25 PM CDT documented in this encounter Progress Notes * NOHEMI Thurston - 08/19/2013 3:04 PM CDT Verified Results Hemoglobin A1C 13Aug2013 02:49PM Leana Johnson Test Name Result Flag Reference Hemoglobin A1c 7.5 % H <5.7 INCREASED RISK OF DIABETES <5.7% NON-DIABETES 5.7-6.4% INCREASED RISK FOR FUTURE DIABETES > OR = 6.5 CONSISTENT WITH DIABETES STANDARDS OF MEDICAL CARE IN DIABETES-2009 DIABETES CARE, 33(SUPP 1): S1-S61,2009 ICIAN ASST * NOHEMI Thurston - 08/19/2013 1:30 PM CDT Reason For Visit Reason For Visit: Acute Visit Chief Complaint Chief Complaint Free Text: pt here for 3 month F/U. review lab results. History of Present Illness Diabetes: The patient is being seen for Diabetes Mellitus 2. The HbA1c was 7.5% performed on 08/13 and 8.1 in 04/2013. Current treatment includes SAMARA inhibitor and Metformin HCl. See Medication List for current medication(s). Source of information reported and indicates that the patient checks his blood sugar sporadically. By report, there is fair compliance with treatment, good tolerance of treatment and fair symptom control. Current pertinent lifestyle factors include tobacco use. The patient is currently asymptomatic Review of Systems Focused-Male: Constitutional: Normal. ENT: [...] Tablet; Take 1 tablet twice daily; Therapy: 25Ulg0877 to (Evaluate:16Jul2013) Requested for: 17Apr2013; Last Rx:17Apr2013 Ordered Rx By: Leana Johnson; Dispense: 30 Days ; #:60 Tablet; Refill: 2; For: Diabetes mellitus; MICHEL = N;Verified Transmission to [facility] 435 2. Lisinopril 10 MG Oral Tablet; TAKE ONE TABLET BY MOUTH EVERY DAY FOR BLOOD PRESSURE; Therapy: 17Gnb6303 to (Evaluate:80Unl8415) Requested for: 01Aug2013; Last Rx:01Aug2013 Ordered Rx By: Leana Johnson; Dispense: 30 Days ; #:30 Tablet; Refill: 3; For: Hypertension; MICHEL = N; Verified Transmission to [facility] 435; Last Updated By: Corinne Morgan; 08/01/2013 8:59:21 AM 3. MetFORMIN HCl - 500 MG Oral Tablet; TAKE 2 TABLETS TWICE DAILY; Therapy: 29Jan2012 to (Evaluate:16Jul2013) Requested for: 17Apr2013; Last Rx:17Apr2013 Ordered Rx By: Leana Johnson; Dispense: 30 Days ; #:120 Tablet; Refill: 2; For: Diabetes mellitus; MICHEL = N; Verified Transmission to [facility] 435 Allergies 1. Codeine Sulfate TABS Recorded By: Deepthi Hernandez; 11/29/2011 4:45:28 PM 2. Darvocet-N 100 TABS Recorded By: Deepthi Hernandez; 11/29/2011 4:45:28 PM Vitals Vital Signs [Data Includes: Current Encounter] Recorded by : Ivone Stokes at 12Vzs5175 01:25PM Temperature 98.1 F Heart Rate 94 Respiration 16 Systolic 142 Diastolic 82 O2 Saturation 98 Height 5 ft 9 in Weight 178 lb BMI Calculated 26.29 BSA Calculated 1.97 Physical Exam Constitutional General appearance: Abnormal. Unkempt appearance andoral hygiene. Pulmonary Respiratory effort: No increased work of breathing or signs of respiratory distress. Auscultation of lungs: Clear to auscultation. Cardiovascular Auscultation of heart: Normal rate and rhythm, normal S1 and S2, without murmurs. Musculoskeletal Gait and station: Normal. Skin Skin and subcutaneous tissue: Normal without rashes or lesions. Neurologic Reflexes: 2+ and symmetric. Sensation: No sensory loss. Psychiatric Orientation to person, place and time: Normal. Mood and affect: Normal. Results/Data 13 Aug 2013 2:49 PM Hemoglobin A1C Hemoglobin A1c 7.5 Assessment 1. Hypertension (401.9) (I10) 2. Type 2 diabetes mellitus (250.00) (E11.9) Plan 1. Stop: Glimepiride 2 MG Oral Tablet Rx By: Leana Johnson; Dispense: 30 Days ; #:60 Tablet; Refill: 2; For: Diabetes mellitus; MICHEL = N;Sent To: [facility] 2. Start: Glimepiride 4 MG Oral Tablet; TAKE 1 TABLET TWICE DAILY Rx By: Leana Johnson; Dispense: 30 Days ; #:60 Tablet; Refill: 0; For: Diabetes mellitus; MICHEL = N;Verified Transmission to [facility]; Last Updated By: EddieBeautyCon; 08/19/2013 2:21:46 PM 3. Basic Metabolic Prof ( BMP ) Status: Hold For - Manual Activation Requested for: 19Aug2013 Perform: [facility] Due: 20Gax4344; Ordered; For: Diabetes mellitus; Ordered By: Leana Johnson 4. Hemoglobin A1C Status: Hold For - Manual Activation Requested for: 58Vqd4512 Perform: [facility] Due: 20Som5874; Ordered; For: Diabetes mellitus; Ordered By: Leana Johnson 5. Lipid W Direct LDL Status: Hold For - Manual Activation Requested for: 19Aug2013 Perform: [facility] Due: 55Vwk3624; Ordered; For: Dyslipidemia; Ordered By: Leana Johnson Discussion/Summary Discussion Summary Free Text: DM2- Discussed HgA1c results reviewed and medication changes discussed. Pt has made positive lifestyle changes resulting in a improved labs. Reinforced need to continue with current changes and strive for continued healthier eating patterns, increased exercise and medication compliance. Labs ordered including fasting lipid panel, HgA1c, BMP for 3 months with a follow up appointment tofollow. Signatures Electronically signed by : Leana Johnson NP; Aug 19 2013 10:07PM PHYSICIAN ASST (Author) ICIAN ASST documented in this encounter Plan of Treatment Upcoming Encounters Date Type Department Care Team (Late st Contact Info) Description 06/09/2024 4:20 PM PHYSICIAN ASST Office Visit [facility] Medical Group Family & Internal Medicine - [address] [address] León Sanchez MD [address] [place] [address] documented as of this encounter Visit Diagnoses Not on filedocumented in this encounter
--- OUTSIDE RECORDS SUMMARY | 2024-04-27 18:28 | XMS_ITS | Encounter Summary ---
Author Organization [facility] Address [address] [place] [address]. [place] [address] [place] [address] Care Team Providers Care Assembler Fishing Floats Name Role Phone Unavailable Primary Care Provider Unavailabl e Encounter Details Date Type Department Care Team (Latest Contact Info) Description 08/13/2013 Abstract [facility] Medical Group Leana Johnson APNP Social History Tobacco Use Types Packs/Day Years Used Date Smoking Tobacco: Never Assessed Sex and Gender Information Value Date Recorded Sex Assigned at Not on file Legal Sex Male 6:22 PM CDT Gender Identity Not on file Sexual Orientation Straight 03/28/2018 4: 44 PM RN ER documented as of this encounter Plan of Treatment Upcoming Encounters Date Type Department Care Team (Late st Contact Info) Description 06/09/2024 4:20 PM RN ER Office Visit [facility] Medical Group Family & Internal Medicine [facility] [address] [place] [address] León Sanchez [place] [id number] [place] [address] documented as of this encounter Procedures Procedure Name Priority Date/Time Associated Diagnosis Comments HEMOGLOBIN, GLYCOSYLATED Routine 08/13/2013 2:49 PM CDT documented in this encounter Results * (ABNORMAL) HEMOGLOBIN, GLYCOSYLATED (08/13/2013 2:49 PM CDT) HGB A1C 7.5(H) <5.7 % [facility] T O EPIC CONVERSION Comment: Result Comment: ?? INCREASED RISK OF DIABETES <5.7% ?NON-DIABETES 5.7-6.4% INCREASED RISK FOR FUTURE DIABETES > OR = 6.5 CONSISTENT WITH DIABETES ?? STANDARDS OF MEDICAL CARE IN DIABETES-2010 DIABETES CARE, 33(SUPP 1): S1-S61,2010 08/13/2013 2:49 PM CDT 08/13/2013 2:49 PM CDT Narrative [facility] TO EPIC CONVERSION - 08/14/2013 4:24 PM CDT Result Communication: Discussed results with patient us Leana SONG LABORATORY Final Result [facility] TO EPIC CONVERSION documented in this encounter Visit Diagnoses Not on filedocumented in this encounter
--- OUTSIDE RECORDS SUMMARY | 2024-04-27 18:28 | XMS_ITS | Encounter Summary ---
Author Organization [facility] Address [facility] [place] [address] [place] [address] Care Team Providers Care Tar Leveler Name Role Phone Unavailable Primary Care Provider Unavailabl e Encounter Details Date Type Department Care Team (Latest Contact Info) Description 04/24/2013 Abstract [facility] Medical Group Social History Tobacco Use Types Packs/Day Years Used Date Smoking Tobacco: Never Assessed Sex and Gender Information Value Date Recorded Sex Assigned at Not on file Legal Sex Male 6:22 PM CDT Gender Identity Not on file Sexual Orientation Straight 03/28/2018 4: 44 PM LIFE SKILLS TRAINER documented as of this encounter Plan of Treatment Upcoming Encounters Date Type Department Care Team (Late st Contact Info) Description 06/09/2024 4:20 PM LIFE SKILLS TRAINER Office Visit [facility] Medical Group Family & Internal Medicine [facility] [address] [place] [address] [place] [address] [place] [address] documented as of this encounter Visit Diagnoses Not on filedocumented in this encounter
--- OUTSIDE RECORDS SUMMARY | 2024-04-27 18:28 | XMS_ITS | Encounter Summary ---
Author Organization [facility] Address [address] [place] [address]. [place] [address] [place] [address] Care Team Providers Care School Psychometrist Name Role Phone Unavailable Primary Care Provider Unavailabl e Encounter Details Date Type Department Care Team (Latest Contact Info) Description 09/11/2012 Abstract [facility] Medical Group Social History Tobacco Use Types Packs/Day Years Used Date Smoking Tobacco: Never Assessed Sex and Gender Information Value Date Recorded Sex Assigned at Not on file Legal Sex Male 6:22 PM CDT Gender Identity Not on file Sexual Orientation Straight 03/28/2018 4: [address] WORKER documented as of this encounter Progress Notes * Suzanne Salinas MD - 09/11/2012 8:53 AM CDT Message Date: 11 Sep 2012 8:[address] WORKER, Recorded By: Chandrika Jennings Calling For: Suzanne Salinas pt called needing refill on his metformin. pt jenny August 15 due for follow up in Nov. Pt [facility] Plan 1. MetFORMIN HCl 500 MG Oral Tablet; TAKE 2 TABLETS TWICE DAILY; Therapy: 29Jan2012 to (Evaluate:11Gpe8445) Requested for: 19Irj2972; Last Rx:[id number]; Edited Signatures Electronically signed by : Suzanne Salinas M.D.; Sep 15 2012 5:03PM (Author) Electronically signed by : Suzanne Salinas M.D.; Sep 15 2012 5:03PM (Author) ROAD WORKER documented in this encounter Plan of Treatment Upcoming Encounters Date Type Department Care Team (Late st Contact Info) Description 06/09/2024 4:[address] WORKER Office Visit [facility] Medical Group Family & Internal Medicine - [place] [address] [place] [address] [place] [address] [place], [place] [id number] documented as of this encounter Visit Diagnoses Not on filedocumented in this encounter
--- OUTSIDE RECORDS SUMMARY | 2024-04-27 18:28 | XMS_ITS | Encounter Summary ---
Author Organization [facility] Address [address] [place] [address]. [place] [address] [place] [address] Care Team Providers Care Foreign Student Adviser Name Role Phone Unavailable Primary Care Provider Unavailabl e Encounter Details Date Type Department Care Team (Latest Contact Info) Description 02/11/[address] [facility] Medical Group Suzanne Salinas MD Social History Tobacco Use Types Packs/Day Years Used Date Smoking Tobacco: Never Assessed Sex and Gender Information Value Date Recorded Sex Assigned at Not on file Legal Sex Male 6:22 PM CDT Gender Identity Not on file Sexual Orientation Straight 03/28/2018 4: 44 PM SALES AND SERVICE AGENT documented as of this encounter Plan of Treatment Upcoming Encounters Date Type Department Care Team (Late st Contact Info) Description 06/09/2024 4:20 PM SALES AND SERVICE AGENT Office Visit [facility] Medical Group Family & Internal Medicine [facility] [address] [place] [address] León Sanchez [place] [id number] [place] [address] documented as of this encounter Procedures Procedure Name Priority Date/Time Associated Diagnosis Comments HEMOGLOBIN, GLYCOSYLATED Routine 02/11/2013 1:54 PM CDT documented in this encounter Results * (ABNORMAL) HEMOGLOBIN, GLYCOSYLATED (02/11/2013 1:54 PM CDT) HGB A1C 8.9(H) <5.7 % [facility] T O EPIC CONVERSION Comment: Result Comment: ?? INCREASED RISK OF DIABETES <5.7% ?NON-DIABETES 5.7-6.4% INCREASED RISK FOR FUTURE DIABETES > OR = 6.5 CONSISTENT WITH DIABETES ?? STANDARDS OF MEDICAL CARE IN DIABETES-2010 DIABETES CARE, 33(SUPP 1): S1-S61,2010 02/11/2013 1:54 PM CDT 02/11/2013 1:54 PM CDT Narrative [facility] TO EPIC CONVERSION - 02/11/2013 4:00 PM CDT Result Communication: No patient communication needed at this time us Suzanne Salinas MD LABORATORY Final Result [facility] TO EPIC CONVERSION documented in this encounter Visit Diagnoses Not on filedocumented in this encounter
--- OUTSIDE RECORDS SUMMARY | 2024-04-27 18:28 | XMS_ITS | Encounter Summary ---
Author Organization [facility] Address [facility] [address] [place] [address] Care Team Providers Care Security Monitor Name Role Phone Unavailable Primary Care Provider Unavailabl e Encounter Details Date Type Department Care Team (Latest Contact Info) Description 08/22/2012 Abstract [facility] Medical Group Social History Tobacco Use Types Packs/Day Years Used Date Smoking Tobacco: Never Assessed Sex and Gender Information Value Date Recorded Sex Assigned at Not on file Legal Sex Male 6:22 PM CDT Gender Identity Not on file Sexual Orientation Straight 03/28/2018 4: 44 PM INSTITUTIONAL RESEARCH DIRECTOR documented as of this encounter Plan of Treatment Upcoming Encounters Date Type Department Care Team (Late st Contact Info) Description 06/09/2024 4:20 PM INSTITUTIONAL RESEARCH DIRECTOR Office Visit [facility] Medical Group Family & Internal Medicine [facility] [address] [place] [address] [place] [address] [place] [address] documented as of this encounter Visit Diagnoses Not on filedocumented in this encounter
--- OUTSIDE RECORDS SUMMARY | 2024-04-27 18:28 | XMS_ITS | Encounter Summary ---
Author Organization [facility] Address [facility] [place] [address] [place] [address] Care Team Providers Care Civil Engineer In Training Name Role Phone Unavailable Primary Care Provider Unavailabl e Encounter Details Date Type Department Care Team (Latest Contact Info) Description 02/13/2013 Abstract [facility] Medical Group Suzanne Salinas MD Social History Tobacco Use Types Packs/Day Years Used Date Smoking Tobacco: Never Assessed Sex and Gender Information Value Date Recorded Sex Assigned at Not on file Legal Sex Male 6:22 PM CDT Gender Identity Not on file Sexual Orientation Straight 03/28/2018 4: 44 PM PRODUCTION ENGINE REPAIRER documented as of this encounter Plan of Treatment Upcoming Encounters Date Type Department Care Team (Late st Contact Info) Description 06/09/2024 4:20 PM PRODUCTION ENGINE REPAIRER Office Visit [facility] Medical Group Family & Internal Medicine [facility] [address] [place] [address] [place] [address] [place] [address] documented as of this encounter Visit Diagnoses Not on filedocumented in this encounter
--- OUTSIDE RECORDS SUMMARY | 2024-04-27 18:28 | XMS_ITS | Encounter Summary ---
Author Organization [facility] Address [facility] [place] [address] [place] [address] Care Team Providers Care Fabricator Industrial Furnace Name Role Phone Unavailable Primary Care Provider Unavailabl e Encounter Details Date Type Department Care Team (Latest Contact Info) Description 10/02/2012 Abstract [facility] Medical Group Social History Tobacco Use Types Packs/Day Years Used Date Smoking Tobacco: Never Assessed Sex and Gender Information Value Date Recorded Sex Assigned at Not on file Legal Sex Male 6:22 PM CDT Gender Identity Not on file Sexual Orientation Straight 03/28/2018 4: 44 PM OFFICE HELPER CLERICAL documented as of this encounter Progress Notes * Suzanne Salinas MD - 10/02/2012 2:06 PM CDT Message Date: 02 Oct 2012 2:07 PM OFFICE HELPER CLERICAL, Recorded By: Deepthi Hernandez Calling For: Suzanne Salinas Reason: Renew Medication patients called requesting a refill on his lisinopril. MAX 5-13 to f/u in 3 months. One month with 2 refills sent to [facility] in [place]. Current Meds 1. Fenofibrate Micronized 134 MG Oral Capsule; TAKE 1 CAPSULE DAILY; Therapy: 98Hbi3357 to (Evaluate:48Vuj4909) Requested for: 20Zny2483; Last Rx:[id number] 2. Glimepiride 2 MG Oral Tablet; Take 1 tablet twice daily; Therapy: 09Nlc0554 to (Last Rx:[id number]) Requested for: 13Jun2012 3. Lipofen 150 MG Oral Capsule; TAKE 1 CAPSULE DAILY WITH A MEAL; Therapy: 79Lot5682 to (Evaluate:32Tzy4944); Last Rx:01Feb2012 4. Livalo 4 MG Oral Tablet; Take 1 tablet daily; Therapy: 08Svk5317 to (Evaluate:50Fag0920); Last Rx:01Feb2012 5. Lovaza 1 GM Oral Capsule; TAKE 2 CAPSULES TWICE DAILY; Therapy: 17May2012 to (Evaluate:31Gpw3882) Requested for: 76Wtk6341; Last Rx:17May2012 6. MetFORMIN HCl 500 MG Oral Tablet; TAKE 2 TABLETS TWICE DAILY; Therapy: 29Jan2012 to (Evaluate:59Ehd2704) Requested for: 11Sep2012; Last Rx:11Sep2012 Assessment 1. Hypertension 401.9 Plan 1. Lisinopril 10 MG Oral Tablet; TAKE 1 TABLET DAILY; Therapy: 28Jyi9675 to (Evaluate:43Rne7252) Requested for: 02Oct2012; Last Rx:02Oct2012; Edited Signatures Electronically signed by : Heidi DooleyP.NBonita; Oct 02 2012 2:08PM (Author) Electronically signed by : Reji Carrillo NP; Oct 21 2012 1:18PM (Author) CE HELPER CLERICAL documented in this encounter Plan of Treatment Upcoming Encounters Date Type Department Care Team (Late st Contact Info) Description 06/09/2024 4:20 PM OFFICE HELPER CLERICAL Office Visit [facility] Medical Group Family & Internal Medicine [facility] [address] [place] [phone] León Sanchez MD [address] [place] [address] documented as of this encounter Visit Diagnoses Not on filedocumented in this encounter
--- OUTSIDE RECORDS SUMMARY | 2024-04-27 18:28 | XMS_ITS | Encounter Summary ---
Author Organization [facility] Address [facility] [address] [place] [address] Care Team Providers Care Printed Circuit Boards Pinner Name Role Phone Unavailable Primary Care Provider Unavailabl e Encounter Details Date Type Department Care Team (Latest Contact Info) Description 04/29/2013 Abstract [facility] Medical Group Leana Johnson APNP Social History Tobacco Use Types Packs/Day Years Used Date Smoking Tobacco: Never Assessed Sex and Gender Information Value Date Recorded Sex Assigned at Not on file Legal Sex Male 6:22 PM CDT Gender Identity Not on file Sexual Orientation Straight 03/28/2018 4: 44 PM TRANSCRIBER documented as of this encounter Plan of Treatment Upcoming Encounters Date Type Department Care Team (Late st Contact Info) Description 06/09/2024 4:20 PM TRANSCRIBER Office Visit [facility] Medical Group Family & Internal Medicine [facility] [address] [place] [phone] León Sanchez [place] [id number] [place] [address] documented as of this encounter Procedures Procedure Name Priority Date/Time Associated Diagnosis Comments VITAMIN B12 / FOLATE Routine 04/29/2013 3:33 PM TRANSCRIBER documented in this encounter Results * VITAMIN B12 / FOLATE (04/29/2013 3:33 PM TRANSCRIBER) VITAMIN B12 S/P/B 529 213 - 816 pg/mL [facility] TO EPIC CONVERSION FOLATE 7.16 7.0 - 31.4 ng/mL [facility] TO EPIC CONVERSION 04/29/2013 3:33 PM TRANSCRIBER 04/29/2013 3:33 PM TRANSCRIBER Narrative [facility] TO EPIC CONVERSION - 04/29/2013 5:41 PM TRANSCRIBER Result Communication: Call patient with results us [facility] Final Result [facility] TO EPIC CONVERSION documented in this encounter Visit Diagnoses Not on filedocumented in this encounter
--- OUTSIDE RECORDS SUMMARY | 2024-04-27 18:28 | XMS_ITS | Encounter Summary ---
Author Organization [facility] Address [facility] [place] [address] [place] [address] Care Team Providers Care Control Chemist Name Role Phone Unavailable Primary Care Provider Unavailabl e Encounter Details Date Type Department Care Team (Latest Contact Info) Description 08/25/2012 Abstract [facility] Medical Group Social History Tobacco Use Types Packs/Day Years Used Date Smoking Tobacco: Never Assessed Sex and Gender Information Value Date Recorded Sex Assigned at Not on file Legal Sex Male 6:22 PM CDT Gender Identity Not on file Sexual Orientation Straight 03/28/2018 4: 44 PM AIRCRAFT LOADMASTER SUPERINTENDENT documented as of this encounter Plan of Treatment Upcoming Encounters Date Type Department Care Team (Late st Contact Info) Description 06/09/2024 4:20 PM AIRCRAFT LOADMASTER SUPERINTENDENT Office Visit [facility] Medical Group Family & Internal Medicine [facility] [address] [place] [address] [place] [address] [place] [address] documented as of this encounter Visit Diagnoses Not on filedocumented in this encounter
--- OUTSIDE RECORDS SUMMARY | 2024-04-27 18:28 | XMS_ITS | Encounter Summary ---
Author Organization [facility] Address [address] [place] [address]. [place] [address] [place] [address] Care Team Providers Care Applications Programmer Name Role Phone Unavailable Primary Care Provider Unavailabl e Encounter Details Date Type Department Care Team (Latest Contact Info) Description 03/18/2013 Abstract [facility] Medical Group Social History Tobacco Use Types Packs/Day Years Used Date Smoking Tobacco: Never Assessed Sex and Gender Information Value Date Recorded Sex Assigned at Not on file Legal Sex Male 6:22 PM CDT Gender Identity Not on file Sexual Orientation Straight 03/28/2018 4: 44 PM SPECTROGRAPH OPERATOR documented as of this encounter Progress Notes * Kareen Troy Md, MD - 03/18/2013 7:27 AM CST Message Date: 18 Mar 2013 7:27 AM SPECTROGRAPH OPERATOR, Recorded By: Chandrika Jennings Calling For: Suzanne Mckoy RECIEVED REFILL REQUEST FROM [facility] BR[facility] ON PT LISINOPRIL. PT MAX 01/07/[address] MCKOY. HE WAS DUE FOR FOLLOW UP IN JAN. PT WAS GIVEN 1 MONTH WITH NOTE TO PHARMACY HE NEEDED APPT. PT HAS NOT COME IN FOR APPT AND DOES NOT HAVE APPT SCHEDULED. 2 WEEKS SENT TO PHARMACY WITH NOTE PT NEEDS APPT NOW. Plan 1. Lisinopril 10 MG Oral Tablet; TAKE 1 TABLET DAILY; Therapy: 96Ayo4637 to (Evaluate:16Wdy3020) Requested for: 14Awv1462; Last Rx:[id number] Signatures Electronically signed by : Chandrika Jennings MA; Mar 18 2013 7:28AM (Author) TROGRAPH OPERATOR documented in this encounter Plan of Treatment Upcoming Encounters Date Type Department Care Team (Late Contact Info) Description 06/09/2024 4:20 PM SPECTROGRAPH OPERATOR Office Visit [facility] Medical Group Family & Internal Medicine - [place] [address] [place] [address] [place] [address] [place] [address] documented as of this encounter Visit Diagnoses Not on filedocumented in this encounter
--- OUTSIDE RECORDS SUMMARY | 2024-04-27 18:28 | XMS_ITS | Encounter Summary ---
Author Organization [facility] Address [address] [place] [address]. [place] [address] [place] [address] Care Team Providers Care Spa Receptionist Name Role Phone Unavailable Primary Care Provider Unavailabl e Encounter Details Date Type Department Care Team (Latest Contact Info) Description 02/01/2012 Abstract [facility] Medical Group Leroy Diamond, DO [address] [place] [address] Social History Tobacco Use Types Packs/Day Years Used Date Smoking Tobacco: Never Assessed Sex and Gender Information Value Date Recorded Sex Assigned at Not on file Legal Sex Male 6:22 PM CDT Gender Identity Not on file Sexual Orientation Straight 03/28/2018 4: 44 PM MERCHANDISE PRESENTATION ASSOCIATE documented as of this encounter Last Filed Vital Signs Vital Sign Reading Time Taken Comments Blood Pressure 124/80 02/01/2012 9:33 AM CDT Pulse 84 02/01/2012 9:33 AM CDT Temperature - - Respiratory Rate - - Oxygen Saturation - - Inhaled Oxygen Concentration - - Weight 81.2 kg (179 lb) 02/01/2012 9:33 AM CDT Height - - Body Mass Index - - documented in this encounter Progress Notes * NOHEMI Hall - 02/01/2012 9:30 AM CDT Chief Complaint Patient is here to review labs. History of Present Illness HPI: Patient in office to review lab work. Stressed importance of medication compliance to control diabetes, dyslipidemia, and blood pressure. Ha1c now 9.2, consistently 9 since 02/24. Creat 0.7 stable since 07/26. TG now 753 and TC 199, LDL 29. Discussed potential complications of medication nonadherance including but not limited to CVA, TIA, Kidney failure, [place], and . Review of Systems Constitutional: as noted in HPI. Active Problems 1. Acute Sinusitis 461.9 2. Ankle Injury 959.7 3. Diabetes Mellitus 250.00 4. Dyslipidemia 272.4 5. Hay Fever 477.9 6. Hypertension 401.9 Social History ?? Never A Smoker Current Meds 1. Glimepiride 2 MG Oral Tablet; Take 1 tablet twice daily; Therapy: 78Rbi2180 to (Last Rx:[id number]) Requested for: 29Nov2011 2. Lisinopril 10 MG Oral Tablet; TAKE 1 TABLET DAILY; Therapy: 02Xbu3527 to (Evaluate:28Apr2012) Requested for: 29Jan2012; Last Rx:29Jan2012 3. MetFORMIN HCl 500 MG Oral Tablet; TAKE 2 TABLETS TWICE DAILY; Therapy: 29Jan2012 to (Evaluate:28Apr2012) Requested for: 29Jan2012; Last Rx:29Jan2012 4. Montelukast Sodium 10 MG Oral Tablet; TAKE 1 TABLET DAILY; Therapy: 37Gha3281 to (Evaluate:19Dec2011) Requested for: 14Dec2011; Last Rx:[id number] Allergies 1. Codeine Sulfate TABS 2. Darvocet-N 100 TABS Vitals 01Feb2012 09:33AM Heart Rate 84 Respiration 16 Systolic 124 Diastolic 80 Weight 179 lb Physical Exam Constitutional General [...] Normal. Mood and affect: Normal. Assessment 1. Dyslipidemia 272.4 2. Diabetes Mellitus 250.00 Plan Dyslipidemia (272.4) ?? Lipofen 150 MG Oral Capsule; TAKE 1 CAPSULE DAILY WITH A MEAL; Therapy: 01Feb2012 to (Evaluate:02Mar2012); Last Rx:01Feb2012 Ordered; For: Dyslipidemia (272.4); Rx By: Hillary Jasso; Dispense: 30 Days ; #:30 Capsule; Refill:0; Dispense Sample ?? Livalo 4 MG Oral Tablet; Take 1 tablet daily; Therapy: 01Feb2012 to (Evaluate:07Mar2012); Last Rx:01Feb2012 Ordered; For: Dyslipidemia (272.4); Rx By: Hillary Jasso; Dispense: 35 Days ; #:35 Tablet; Refill: 0; Dispense Sample Discussion/Summary Patient agreed to really take medications as prescribed for next 60 days Samples Livalo and Lipofen provided Will repeat Lipid panel and Ha1c in 2 months Reason For Visit Reason For Visit: Consultation Visit Signatures Electronically signed by : Hillary Jasso NP; Feb 01 2012 10:22AM (Author) HANDISE PRESENTATION ASSOCIATE documented in this encounter Plan of Treatment Upcoming Encounters Date Type Department Care Team (Late st Contact Info) Description 06/09/2024 4:20 PM MERCHANDISE PRESENTATION ASSOCIATE Office Visit [facility] Medical Group Family & Internal Medicine [facility] [address] [place] [address] [place] [address] [place] [address] documented as of this encounter Visit Diagnoses Not on filedocumented in this encounter
--- OUTSIDE RECORDS SUMMARY | 2024-04-27 18:28 | XMS_ITS | Encounter Summary ---
Author Organization [facility] Address [facility] [place] [address] [place] [address] Care Team Providers Care Carding Machine Feeder Name Role Phone Unavailable Primary Care Provider Unavailabl e Encounter Details Date Type Department Care Team (Latest Contact Info) Description 01/21/2014 Abstract [facility] Medical Group Leana Johnson APNP Social History Tobacco Use Types Packs/Day Years Used Date Smoking Tobacco: Never Assessed Sex and Gender Information Value Date Recorded Sex Assigned at Not on file Legal Sex Male 6:22 PM CDT Gender Identity Not on file Sexual Orientation Straight 03/28/2018 4: 44 PM ASSISTANT TO THE DIRECTOR documented as of this encounter Plan of Treatment Upcoming Encounters Date Type Department Care Team (Late st Contact Info) Description 06/09/2024 4:20 PM ASSISTANT TO THE DIRECTOR Office Visit [facility] Medical Group Family & Internal Medicine [facility] [address] [place] [phone] [place] [address] [place] [address] documented as of this encounter Procedures Procedure Name Priority Date/Time Associated Diagnosis Comments LIPID PANEL WITH DIRECT LDL Routine 01/21/2014 3:19 PM CDT RHEUMATOID FACTOR, QUANT Routine 01/21/2014 3:19 PM CDT HEMOGLOBIN, GLYCOSYLATED Routine 01/21/2014 3:19 PM CDT BASIC METABOLIC PANEL Routine 01/21/2014 3:19 PM CDT documented in this encounter Results * (ABNORMAL) LIPID PANEL WITH DIRECT LDL (01/21/2014 3:19 PM CDT) CHOLESTEROL 135 <200 MG/DL [facility] TO EPIC CONVERSION CHOL/HDL RATIO 5.00 [facility] OUP TO EPIC CONVERSION Comment: Result Comment: ? INTERPRETATION OF RESULTS NHLBI RECOMMENDED RANGES ? CHOLESTEROL MG/DL ?LDL MG/DL ?DESIRABLE ? <200 ?<130 ?BORDERLINE ?200-239 ? 130-159 ?HIGH RISK ? >240 ?>160 ?? REFERENCE VALUE FOR HDL CHOLESTEROL ?RISK LEVEL ??MALE MG/DL ? FEMALE MG/DL ?DECREASED ?>45 ?>55 ?AVERAGE ? 45 ? 55 ?INCREASED ?<45 ?<55 HDL 27(L) >45 MG/DL [facility] T O EPIC CONVERSION DIRECT LDL 51 MG/DL [facility] TO EPIC CONVERSION TRIGLYCERIDES 313(H) <150 MG/DL [facility] TO EPIC CONVERSION 01/21/2014 3:19 PM CDT 01/21/2014 3:19 PM CDT Narrative [facility] TO EPIC CONVERSION - 01/21/2014 3:57 PM CDT Result Communication: Call patient with results [facility] Final Result [facility] TO EPIC CONVERSION * RHEUMATOID FACTOR, QUANT (01/21/2014 3:19 PM CDT) RHEUMATOID FACTOR NEG NEG [facility] TO EPIC CONVERSION 01/21/2014 3:19 PM CDT 01/21/2014 3:19 PM CDT Narrative [facility] TO EPIC CONVERSION - 01/21/2014 5:04 PM CDT Result Communication: Call patient with results [facility] Final Result [facility] TO EPIC CONVERSION * (ABNORMAL) BASIC METABOLIC PANEL (01/21/2014 3:19 PM CDT) [facility] GLUCOSE 232(H) 70 - 105 MG/DL [facility] TO EPIC CONVERSION BUN 9 8.4 - 24.7 MG/DL [facility] TO EPIC CONVERSION CREATININE S/P/B 0.8 0.72 - 1.25 MG/DL [facility] TO EPIC CONVERSION SODIUM S/P/B 141 136 - 145 MMOL/L [facility] TO EPIC CONVERSION POTASSIUM S/P/B 4.9 3.5 - 5.1 MMOL/L [facility] TO EPIC CONVERSION CHLORIDE S/P/B 103 98 - 107 MMOL/L [facility] TO EPIC CONVERSION CO2 30.0(H) 22 - 29 MMOL/L [facility] TO EPIC CONVERSION CALCIUM S/P/B 9.0 8.4 - 10.2 MG/DL [facility] TO EPIC CONVERSION ANION GAP 12.9 10.0 - 24.0 MMOL/L [facility] TO EPIC CONVERSION BUN CREATININE RATIO 11.3 6.0 - 26.0 [facility] TO EPIC CONVERSION OSMOLALITY (CALC) 287 271 - 290 MOSM/KG [facility] TO EPIC CONVERSION GFR ESTIMATE >60 ?? GFR Reference Range: Kidney Failure - <15mL/min Chronic Kidney Disease - <60mL/min Normal Kidney Function - >60mL/min GFR calculation is not recommended for Patients less than 18 years or greater than 70 years as per the national Kidney Foundation. If the patient is -Abigail n, multiply results by 1.21 >60 ml/min/1. 73 m2 [facility] TO EPIC CONVERSION 01/21/2014 3:19 PM CDT 01/21/2014 3:19 PM CDT Narrative [facility] TO EPIC CONVERSION - 01/21/2014 3:57 PM CDT Result Communication: Call patient with results us [facility] Final Result [facility] TO EPIC CONVERSION * (ABNORMAL) HEMOGLOBIN, GLYCOSYLATED (01/21/2014 3:19 PM CDT) HGB A1C 7.9(H) <5.7 % [facility] T O EPIC CONVERSION Comment: Result Comment: ?? INCREASED RISK OF DIABETES <5.7% ?NON-DIABETES 5.7-6.4% INCREASED RISK FOR FUTURE DIABETES > OR = 6.5 CONSISTENT WITH DIABETES ?? STANDARDS OF MEDICAL CARE IN DIABETES-2010 DIABETES CARE, 33(SUPP 1): S1-S61,2010 01/21/2014 3:1 9 PM CDT 01/21/2014 3:19 PM CDT Narrative [facility] TO EPIC CONVERSION - 01/22/2014 4:00 PM CDT Result Communication: Call patient with results us [facility] Final Result [facility] TO EPIC CONVERSION documented in this encounter Visit Diagnoses Not on filedocumented in this encounter
--- OUTSIDE RECORDS SUMMARY | 2024-04-27 18:28 | XMS_ITS | Encounter Summary ---
Author Organization [facility] Address [facility] [place] [address] [place] [address] Care Team Providers Care Hedge Fund Trader Name Role Phone Unavailable Primary Care Provider Unavailabl e Encounter Details Date Type Department Care Team (Latest Contact Info) Description 04/29/2013 Abstract [facility] Leana Johnson APNP Social History Tobacco Use Types Packs/Day Years Used Date Smoking Tobacco: Never Assessed Sex and Gender Information Value Date Recorded Sex Assigned at Not on file Legal Sex Male 6:22 PM CDT Gender Identity Not on file Sexual Orientation Straight 03/28/2018 4: 44 PM CUSTOMER PROGRAM MANAGER documented as of this encounter Plan of Treatment Upcoming Encounters Date Type Department Care Team (Late st Contact Info) Description 06/09/2024 4:20 PM CUSTOMER PROGRAM MANAGER Office Visit [facility] Family & Internal Medicine [facility] [address] [place] [address] [place] [address] [place] [address] documented as of this encounter Procedures Procedure Name Priority Date/Time Associated Diagnosis Comments LIPID W/CALC LDL Routine 04/29/2013 3:3 3 PM CUSTOMER PROGRAM MANAGER TSH W/REFLEX Routine 04/29/2013 3:33 PM CUSTOMER PROGRAM MANAGER HEMOGLOBIN, GLYCOSYLATED Routine 04/29/2013 3:33 PM CUSTOMER PROGRAM MANAGER TESTOSTERONE, FREE & TOTAL Routine 04/29/2013 3:33 PM CUSTOMER PROGRAM MANAGER COMPREHENSIVE METABOLIC PANEL Routine 04/29/2013 3:33 PM CUSTOMER PROGRAM MANAGER CBC W/DIFF AUTOMATED Routine 04/29/2013 3:33 PM CUSTOMER PROGRAM MANAGER documented in this encounter Results * (ABNORMAL) COMPREHENSIVE METABOLIC PANEL (04/29/2013 3:33 PM CUSTOMER PROGRAM MANAGER) Pathologist [facility] SODIUM S/P/B 140 136 - 145 MMOL/L [facility] TO EPIC CONVERSION POTASSIUM S/P/B 4.4 3.5 - 5.1 MMOL/L [facility] TO EPIC CONVERSION CHLORIDE S/P/B 105 98 - 107 MMOL/L [facility] TO EPIC CONVERSION CO2 28.0 22 - 29 MMOL/L [facility] TO EPIC CONVERSION ANION GAP 11.4 10.0 - 24.0 MMOL/L [facility] TO EPIC CONVERSION BUN 16 8.4 - 24.7 MG/DL [facility] TO EPIC CONVERSION CREATININE S/P/B 0.9 0.72 - 1.25 MG/DL [facility] TO EPIC CONVERSION GFR ESTIMATE >60 ?? GFR Reference Range: Kidney Failure - <15mL/min Chronic Kidney Disease - <60mL/min Normal Kidney Function - >60mL/min GFR calculation is not recommended for Patients less than 18 years or greater than 70 years as per the national Kidney Foundation. If the patient is -Abigail n, multiply results by 1.21 >60 ml/min/1 .73 m2 [facility] TO EPIC CONVERSION BUN CREATININE RATIO 17.8 6.0 - 26.0 [facility] TO EPIC CONVERSION GLUCOSE 185(H) 70 - 105 MG/DL [facility] TO EPIC CONVERSION OSMOLALITY (CALC) 285 271 - 290 MOSM/KG [facility] TO EPIC CONVERSION CALCIUM S/P/B 9.8 8.4 - 10.2 MG/DL [facility] TO EPIC CONVERSION BILIRUBIN TOTAL S/P/B 1.1 0.2 - 1.2 MG/DL [facility] TO EPIC CONVERSION AST 16 5 - 34 UNITS/L [facility] TO EPIC CONVERSION ALT 21 6 - 55 UNITS/L [facility] TO EPIC CONVERSION ALKALINE PHOSPHATASE S/P/B 53 40 - 115 UNITS/L [facility] TO EPIC CONVERSION TOTAL PROTEIN S/P/B 6.6 6.4 - 8.3 G/DL [facility] TO EPIC CONVERSION ALBUMIN S/P/B 3.9 3.5 - 5.0 G/DL [facility] TO EPIC CONVERSION A/G RATIO 1.4 1.1 - 1.9 RATIO [facility] TO EPIC CONVERSION 04/29/2013 3:33 PM CUSTOMER PROGRAM MANAGER 04/29/2013 3:33 PM CUSTOMER PROGRAM MANAGER Narrative [facility] TO EPIC CONVERSION - 04/29/2013 4:52 PM CUSTOMER PROGRAM MANAGER Result Communication: Call patient with results [facility] Final Result [facility] TO EPIC CONVERSION * (ABNORMAL) HEMOGLOBIN, GLYCOSYLATED (04/29/2013 3:33 PM CUSTOMER PROGRAM MANAGER) HGB A1C 8.1(H) <5.7 % [facility] T O EPIC CONVERSION Comment: Result Comment: ?? INCREASED RISK OF DIABETES <5.7% ?NON-DIABETES 5.7-6.4% INCREASED RISK FOR FUTURE DIABETES > OR = 6.5 CONSISTENT WITH DIABETES ?? STANDARDS OF MEDICAL CARE IN DIABETES-2010 DIABETES CARE, 33(SUPP 1): S1-S61,2010 04/29/2013 3:33 PM CUSTOMER PROGRAM MANAGER 04/29/2013 3:33 PM CUSTOMER PROGRAM MANAGER Narrative [facility] TO EPIC CONVERSION - 04/30/2013 11:41 PM CUSTOMER PROGRAM MANAGER Result Communication: Call patient with results [facility] Final Result Performing Organization Address City/[facility]/ZIP Co de Phone Number [facility] TO EPIC CONVERSION * TESTOSTERONE, FREE & TOTAL (04/29/2013 3:33 PM CUSTOMER PROGRAM MANAGER) TESTOSTERONE TOTAL 302 M [facility] TO EPIC CONVERSION Comment: Result Comment: Reference range: 250 to 1100 Unit: ng/dL For more information on this test, go to http://education.AccountNow.Adhysteria/faq/ TotalTestosteroneLCMSMS TESTOSTERONE FREE 60.7 ME [facility] TO EPIC CONVERSION Comment: Result Comment: Reference range: 35.0 to 155.0 Unit: pg/mL Test Performed by [facility], [facility], [address] [place] [address] Jarod Lau M.D., Ph.D., Director of Laboratories , [facility] [id number] 04/29/2013 3:33 PM CUSTOMER PROGRAM MANAGER 04/29/2013 3:33 PM CUSTOMER PROGRAM MANAGER Narrative [facility] TO EPIC CONVERSION - 05/06/2013 1:07 AM CUSTOMER PROGRAM MANAGER Result Communication: Call patient with results Leana Johnson [facility] Final Result [facility] TO EPIC CONVERSION * (ABNORMAL) CBC W/DIFF AUTOMATED (04/29/2013 3:33 PM CUSTOMER PROGRAM MANAGER) WBC 7.8 4.4 - 11.0 K/UL [facility] TO EPIC CONVERSION RBC 4.89 4.5 - 5.9 M/UL [facility] TO EPIC CONVERSION HGB 15.1 14.0 - 17.5 G/DL [facility] TO EPIC CONVERSION HCT 44.2 41.5 - 50.4 % [facility] TO EPIC CONVERSION MCV 90.4 80 - 96 FL [facility] TO EPIC CONVERSION MCH 30.9 26.5 - 31.4 PG [facility] TO EPIC CONVERSION MCHC 34.2 31.9 - 34.8 G/DL [facility] TO EPIC CONVERSION RDW 12.0(L) 12.3 - 14.3 % [facility] TO EPIC CONVERSION PLT 212 151 - 353 K/UL [facility] TO EPIC CONVERSION MPV 12.2(H) 9.7 - 11.9 FL [facility] TO EPIC CONVERSION BASOPHILS % 1.7(H) 0.0 - 1.3 % [facility] TO EPIC CONVERSION EOSINOPHILS % 1.2 0.0 - 5.6 % [facility] TO EPIC CONVERSION NEUTROPHILS % 61.7 42.1 - 71.9 % [facility] TO EPIC CONVERSION LYMPHOCYTES % 28.6 15.8 - 45.0 % [facility] TO EPIC CONVERSION MONOCYTES % 6.3 5.7 - 12.5 % [facility] TO EPIC CONVERSION IMMATURE GRANS % 0.5 0.0 - 0.5 % [facility] TO EPIC CONVERSION ABS. NEUTROPHILS TOTAL 4.8 1.4 - 6.0 K/UL [facility] TO EPIC CONVERSION WBC MORPHOLOGY NORMAL [facility] OUP TO EPIC CONVERSION PLT MORPH. NORMAL [facility] TO EPIC CONVERSION RBC MORPHOLOGY NORMAL [facility] OUP TO EPIC CONVERSION 04/29/2013 3:33 PM CUSTOMER PROGRAM MANAGER 04/29/2013 3:33 PM CUSTOMER PROGRAM MANAGER Narrative [facility] TO EPIC CONVERSION - 04/29/2013 4:27 PM CUSTOMER PROGRAM MANAGER Result Communication: Call patient with results [facility] Final Result [facility] TO EPIC CONVERSION * TSH W/REFLEX (SNS) (04/29/2013 3:33 PM CUSTOMER PROGRAM MANAGER) TSH 1.19 0.35 - 4.94 uIU/mL [facility] TO EPIC CONVERSION Comment:Result Comment: FREE T4 NOT INDICATED 04/29/2013 3:33 PM CUSTOMER PROGRAM MANAGER 04/29/2013 3:33 PM CUSTOMER PROGRAM MANAGER Narrative [facility] TO EPIC CONVERSION - 04/29/2013 4:53 PM CUSTOMER PROGRAM MANAGER Result Communication: Call patient with results [facility] Final Result Performing Organization Address City/[facility]/ZIP Co de Phone Number [facility] TO EPIC CONVERSION * (ABNORMAL) LIPID W/CALC LDL (04/29/2013 3:33 PM CUSTOMER PROGRAM MANAGER) CHOLESTEROL 185 <200 MG/DL [facility] TO EPIC CONVERSION TRIGLYCERIDES 266(H) <150 MG/DL [facility] TO EPIC CONVERSION HDL 37(L) >45 MG/DL [facility] T O EPIC CONVERSION LDL (CALCULATED) 94.8 <130 MG/L [facility] TO EPIC CONVERSION CHOL/HDL RATIO 5.00 [facility] OUP TO EPIC CONVERSION Comment: Result Comment: ? INTERPRETATION OF RESULTS NHLBI RECOMMENDED RANGES ? CHOLESTEROL MG/DL ?LDL MG/DL ?DESIRABLE ? <200 ?<130 ?BORDERLINE ?200-239 ? 130-159 ?HIGH RISK ? >240 ?>160 ?? REFERENCE VALUE FOR HDL CHOLESTEROL ?RISK LEVEL ??MALE MG/DL ? FEMALE MG/DL ?DECREASED ?>45 ?>55 ?AVERAGE ? 45 ? 55 ?INCREASED ?<45 ?<55 04/29/2013 3:33 PM CUSTOMER PROGRAM MANAGER 04/29/2013 3:33 PM CUSTOMER PROGRAM MANAGER Narrative [facility] TO EPIC CONVERSION - 04/29/2013 4:52 PM CUSTOMER PROGRAM MANAGER Result Communication: Call patient with results us [facility] Final Result [facility] TO EPIC CONVERSION documented in this encounter Visit Diagnoses Not on filedocumented in this encounter
--- OUTSIDE RECORDS SUMMARY | 2024-04-27 18:28 | XMS_ITS | Encounter Summary ---
Author Organization [facility] Address [facility] [place] [address] [place] [address] Care Team Providers Care Guest Service Aide Name Role Phone Unavailable Primary Care Provider Unavailabl e Encounter Details Date Type Department Care Team (Latest Contact Info) Description 05/02/[address] [facility] , Kareen Troy MD Social History Tobacco Use Types Packs/Day Years Used Date Smoking Tobacco: Never Assessed Sex and Gender Information Value Date Recorded Sex Assigned at Not on file Legal Sex Male 6:22 PM CDT Gender Identity Not on file Sexual Orientation Straight 03/28/2018 4: 44 PM CLINICAL ACCOUNT SPECIALIST documented as of this encounter Progress Notes * Kareen Troy Md, MD - 05/02/2013 3:17 PM CST Message Recorded as Task Date: 05/02/2013 09:18 AM, Created By: Leana Johnson Task Name: Call Patient with results Assigned To: Leana Johnson Regarding Patient: Sonny Singleton, Status: Active Comment: Leana Johnson - 02 May 2013 9:18 AM Patient Remians high but improved from last visit . 3month Ivone Good - 02 May 2013 3:17 PM TASK EDITED notified pt of result, she vocalized understanding and will relay the message when he gets offwork after 5:30pm. pt to set up appt for 3 month F/U from last visit. Signatures Electronically signed by : Ivone Stokes, ; May 02 2013 3:18PM (Author) ICAL ACCOUNT SPECIALIST * NOHEMI Thurston - 05/02/2013 9:18 AM CST Message Remians high but improved from last visit . 3month FU Verified Results Hemoglobin A1C 29Apr2013 03:33PM Leana Johnson Test Name Result Flag Reference Hemoglobin A1c 8.1 % H <5.7 INCREASED RISK OF DIABETES <5.7% NON-DIABETES 5.7-6.4% INCREASED RISK FOR FUTURE DIABETES > OR = 6.5 CONSISTENT WITH DIABETES STANDARDS OF MEDICAL CARE IN DIABETES-2010 DIABETES CARE, 33(SUPP 1): S1-S61,2009 ICAL ACCOUNT SPECIALIST documented in this encounter Plan of Treatment Upcoming Encounters Date Type Department Care Team (Late st Contact Info) Description 06/09/2024 4:20 PM CLINICAL ACCOUNT SPECIALIST Office Visit [facility] Family & Internal Medicine - [address] [address] León Sanchez MD [address] [place] [address] documented as of this encounter Visit Diagnoses Not on filedocumented in this encounter
--- OUTSIDE RECORDS SUMMARY | 2024-04-27 18:28 | XMS_ITS | Encounter Summary ---
Author Organization [facility] Address [address] [place] [address]. [place] [address] [place] [address] Care Team Providers Care Senior Java Software Engineer Name Role Phone Unavailable Primary Care Provider Unavailabl e Encounter Details Date Type Department Care Team (Latest Contact Info) Description 10/16/2013 Abstract [facility] Leana Johnson APNP Social History Tobacco Use Types Packs/Day Years Used Date Smoking Tobacco: Never Assessed Sex and Gender Information Value Date Recorded Sex Assigned at Not on file Legal Sex Male 6:22 PM CDT Gender Identity Not on file Sexual Orientation Straight 03/28/2018 4: 44 PM BEAM WARPER documented as of this encounter Plan of Treatment Upcoming Encounters Date Type Department Care Team (Late st Contact Info) Description 06/09/2024 4:20 PM BEAM WARPER Office Visit [facility] Family & Internal Medicine [facility] [address] [place] [address] León Sanchez [place] [id number] [place] [address] documented as of this encounter Procedures Procedure Name Priority Date/Time Associated Diagnosis Comments HEMOGLOBIN, GLYCOSYLATED Routine 10/16/2013 2:25 PM CDT documented in this encounter Results * (ABNORMAL) HEMOGLOBIN, GLYCOSYLATED (10/16/2013 2:25 PM CDT) HGB A1C 8.3(H) <5.7 % [facility] T O EPIC CONVERSION Comment: Result Comment: ?? INCREASED RISK OF DIABETES <5.7% ?NON-DIABETES 5.7-6.4% INCREASED RISK FOR FUTURE DIABETES > OR = 6.5 CONSISTENT WITH DIABETES ?? STANDARDS OF MEDICAL CARE IN DIABETES-2010 DIABETES CARE, 33(SUPP 1): S1-S61,2010 10/16/2013 2:25 PM CDT 10/16/2013 2:25 PM CDT Narrative [facility] TO EPIC CONVERSION - 10/18/2013 2:37 PM CDT Result Communication: Call patient with results us [facility] Final Result [facility] TO EPIC CONVERSION documented in this encounter Visit Diagnoses Not on filedocumented in this encounter
--- OUTSIDE RECORDS SUMMARY | 2024-04-27 18:28 | XMS_ITS | Encounter Summary ---
Author Organization [facility] Address [address] [place] [address]. [place] [address] [place] [address] Care Team Providers Care Speed Operator Name Role Phone Unavailable Primary Care Provider Unavailabl e Encounter Details Date Type Department Care Team (Latest Contact Info) Description 10/27/2013 Abstract [facility] Social History Tobacco Use Types Packs/Day Years Used Date Smoking Tobacco: Never Assessed Sex and Gender Information Value Date Recorded Sex Assigned at Not on file Legal Sex Male 6:22 PM CDT Gender Identity Not on file Sexual Orientation Straight 03/28/2018 4: 44 PM STUDENT SERVICES DEAN documented as of this encounter Progress Notes * Kareen Troy Md, MD - 10/27/2013 11:46 AM CDT Message Recorded as Task Date: 10/20/2013 07:41 AM, Created By: Leana Johnson Task Name: Call Patient with results Assigned To: Leana Johnson Regarding Patient: Sonny Singleton, Status: In Progress Comment: Leana Johnson - 20 Oct 2013 7:41 AM Patient Please notify pt of results increasing from last visit. Discussed treatment at last visit, mostly compliance issue Ivone Stokes 27 Oct 2013 9:10 AM TASK EDITED lm for pt to return call. Ivone Stokes 27 Oct 2013 9:10 AM TASK IN PROGRESS Ivone Stokes 27 Oct 2013 11:46 AM TASK EDITED pt informed and vocalized understanding. Signatures Electronically signed by : Ivone Stokes, ; Oct 27 2013 11:46AM STUDENT SERVICES DEAN (Author) documented in this encounter Plan of Treatment Upcoming Encounters Date Type Department Care Team (Late st Contact Info) Description 06/09/2024 4:20 PM STUDENT SERVICES DEAN Office Visit [facility] Group Family & Internal Medicine - [place] [address] [place] [address] [place] [address] [place] [address] documented as of this encounter Visit Diagnoses Not on filedocumented in this encounter
--- OUTSIDE RECORDS SUMMARY | 2024-04-27 18:28 | XMS_ITS | Encounter Summary ---
Author Organization [facility] Address [facility] [place] [address] [place] [address] Care Team Providers Care Epic Kaleidoscope Analyst Name Role Phone Unavailable Primary Care Provider Unavailabl e Encounter Details Date Type Department Care Team (Latest Contact Info) Description 03/25/2012 Abstract [facility] Social History Tobacco Use Types Packs/Day Years Used Date Smoking Tobacco: Never Assessed Sex and Gender Information Value Date Recorded Sex Assigned at Not on file Legal Sex Male 6:22 PM CDT Gender Identity Not on file Sexual Orientation Straight 03/28/2018 4: 44 PM APARTMENT COMMUNITY MANAGER documented as of this encounter Progress Notes * NOHEMI Hall - 03/25/2012 9:33 AM CST Message Message: received request for glimperide, sent one month with 1 refill to [facility] in [place]. MAX 01-25 with Hillary. Plan 1. Glimepiride 2 MG Oral Tablet; Take 1 tablet twice daily; Therapy: [id number] to (Last Rx:[id number]) Requested for: [id number] Signatures Electronically signed by : Deepthi Hernandez L.P.N.; Mar 25 2012 9:35AM (Author) TMENT COMMUNITY MANAGER documented in this encounter Plan of Treatment Upcoming Encounters Date Type Department Care Team (Late st Contact Info) Description 06/09/2024 4:20 PM APARTMENT COMMUNITY MANAGER Office Visit [facility] Medical Group Family & Internal Medicine [address] [address] León Sanchez MD [address] [place] [address] documented as of this encounter Visit Diagnoses Not on filedocumented in this encounter
--- OUTSIDE RECORDS SUMMARY | 2024-04-27 18:29 | XMS_ITS | Encounter Summary ---
Author Organization [facility] Address [facility] [place] [address] [place] [address] Care Team Providers Care Certified Nurse Operating Room Name Role Phone Unavailable Primary Care Provider Unavailabl e Encounter Details Date Type Department Care Team (Latest Contact Info) Description 12/14/2011 Abstract [facility] Subhash Mtz MD [address] [place] [address] [place] [address] Social History Tobacco Use Types Packs/Day Years Used Date Smoking Tobacco: Never Assessed Sex and Gender Information Value Date Recorded Sex Assigned at Not on file Legal Sex Male 6:22 PM CDT Gender Identity Not on file Sexual Orientation Straight 03/28/2018 4: 44 PM DROP PIT WORKER documented as of this encounter Last Filed Vital Signs Vital Sign Reading Time Taken Comments Blood Pressure 142/88 12/14/2011 8:59 AM CDT Pulse 80 12/14/2011 8:59 AM CDT Temperature - - Respiratory Rate - - Oxygen Saturation - - Inhaled Oxygen Concentration - - Weight 83 kg (183 lb) 12/14/2011 8:59 AM CDT Height - - Body Mass Index - - documented in this encounter Progress Notes * Subhash Mtz MD - 12/14/2011 8:45 AM CDT Chief Complaint 1. Cough sinus infection onset Sunday Reason For Visit Acute Visit History of Present Illness Pleasant 51 year old female with onset 3 days ago of sinus congestion and drainage. No other symptoms or complaints. PMH seasonal allergies, takes claritin daily, not controlling his allergy symptomswell since rain a few days ago. Allergic to codeine. Review of Systems See HPI for pertinent positives. Other Symptoms: none. Active Problems 1. Acute Sinusitis 461.9 2. Diabetes Mellitus 250.00 3. Hypertension 401.9 Social History ?? Never A Smoker Current Meds 1. Glimepiride 2 MG Oral Tablet; Take 1 tablet twice daily; Therapy: [id number] to (Last Rx:[id number]) Requested for: [id number] 2. Lisinopril 10 MG Oral Tablet; Take 1 tablet daily; Therapy: [id number] to (Evaluate:28Jan2012) Requested for: [id number]; Last Rx:[id number] Allergies 1. Codeine Sulfate TABS 2. Darvocet-N 100 TABS Vitals Signs [Data Includes: Current Encounter] 14Dec2011 08:59AM Temperature: 97.6 F Heart Rate: 80 Respiration: 16 Systolic: 142 Diastolic: 88 Weight: 183 lb O2 Saturation: 98 Physical Exam Constitutional: no acute distress, well appearing and well nourished. Head/Face: normal and no sinus tenderness. Eyes: conjunctiva and lids with no swelling, erythema or discharge. ENT: no sinus tenderness or nasal discharge and no erythema or edema of the ears and nose, translucent with normal light reflex and canals patent without erythema and nasal mucosa, septum, and turbinates normal without edema or erythema. (posterior pharyngeal sinus drainage). Pulmonary: no increased work of breathing or signs of respiratory distress and clear to auscultation. Cardiovascular: normal rate and rhythm, normal S1 and S2, without murmurs. Lymphatic: neck nodes without lymphadenopathy. Skin: no lesions. Psychiatric: oriented to person, place, and time and mood and affect normal. Assessment 1. Acute Sinusitis 461.9 2. Hay Fever 477.9 Plan 1. Azithromycin 250 MG Oral Tablet; TAKE 2 TABLETS ON DAY 1 THEN TAKE 1 TABLET A DAY FOR 4 DAYS; Therapy: [id number] to (Last Rx:[id number]) 2. Montelukast Sodium 10 MG Oral Tablet; TAKE 1 TABLET DAILY; Therapy: to (Evaluate:19Dec2011); Last Rx:[id number] Follow up with your MD in 5 days, or sooner if needed. Signatures Electronically signed by : Subhash Mtz M.D.; Dec 14 2011 9:17AM (Author) PIT WORKER documented in this encounter Plan of Treatment Upcoming Encounters Date Type Department Care Team (Late st Contact Info) Description 06/09/2024 4:20 PM DROP PIT WORKER Office Visit [facility] Medical Group Family & Internal Medicine - [place] [address] [place] [address] [place] [address] [place] [address] documented as of this encounter Visit Diagnoses Not on filedocumented in this encounter
--- OUTSIDE RECORDS SUMMARY | 2024-04-27 18:29 | XMS_ITS | Encounter Summary ---
Author Organization [facility] Address [address] [place] [address]. [place] [address] [place] [address] Care Team Providers Care Car Wash Attendant Name Role Phone León Sanchez MD Primary Care Provider [phone]- [phone] Encounter Details Date Type Department Care Team (Late Contact Info) Description 08/10/2011 Abstract [facility] [address] [place] [address] Hillary Jasso, APNP [address] [address] Social History Tobacco Use Types [...] Sexual Orientation Straight 03/28/2018 4: 44 PM BRAID MAKER documented as of this encounter Plan of Treatment Upcoming Encounters Date Type Department Care Team (Late st Contact Info) Description 06/09/2024 4:20 PM BRAID MAKER Office Visit [facility] Family & Internal Medicine [facility] [address] [place] [address] [place] [address] [place] [address] documented as of this encounter Visit Diagnoses Diagnosis Type 2 or unspecified type diabetes mellitus ([facility]/HCC [facility]/HCC) documented in this encounter Care Teams Car Wash Attendant Relationship Specialty Start [place] [address] [place] [address] PCP - General FAMILY PRACTICE 02/27/18 documented as of this encounter
--- OUTSIDE RECORDS SUMMARY | 2024-04-27 18:29 | XMS_ITS | Encounter Summary ---
Author Organization [facility] Address [address] [place] [address]. [place] [address] [place] [address] Care Team Providers Care Repair Table Operator Name Role Phone León Sanchez MD Primary Care Provider [phone]- [phone] Encounter Details Date Type Department Care Team (Late Contact Info) Description 06/09/2010 Abstract [facility] [address] [place] [address] Hillary Jasso, APNP [address] [address] Social History Tobacco Use Types [...] Sexual Orientation Straight 03/28/2018 4: 44 PM FILENET ADMIN documented as of this encounter Plan of Treatment Upcoming Encounters Date Type Department Care Team (Late st Contact Info) Description 06/09/2024 4:20 PM FILENET ADMIN Office Visit [facility] Family & Internal Medicine [facility] [address] [place] [address] [place] [address] [place] [address] documented as of this encounter Visit Diagnoses Diagnosis Other testicular hypofunction documented in this encounter Care Teams Repair Table Operator Relationship Specialty Start [place] [address] [place] [address] PCP - General FAMILY PRACTICE 02/27/18 documented as of this encounter
--- OUTSIDE RECORDS SUMMARY | 2024-04-27 18:29 | XMS_ITS | Encounter Summary ---
Author Organization [facility] Address [facility] [place] [address] [place] [address] Care Team Providers Care Financial Compliance Examiner Name Role Phone Unavailable Primary Care Provider Unavailabl e Encounter Details Date Type Department Care Team (Latest Contact Info) Description 01/18/2012 Abstract [facility] Medical Group Leroy Diamond, DO [address] [place] [address] Social History Tobacco Use Types Packs/Day Years Used Date Smoking Tobacco: Never Assessed Sex and Gender Information Value Date Recorded Sex Assigned at Not on file Legal Sex Male 6:22 PM CDT Gender Identity Not on file Sexual Orientation Straight 03/28/2018 4: 44 PM SAS BI DEVELOPER documented as of this encounter Last Filed Vital Signs Vital Sign Reading Time Taken Comments Blood Pressure 116/64 01/18/2012 1:42 PM CDT Pulse 76 01/18/2012 1:42 PM CDT Temperature - - Respiratory Rate - - Oxygen Saturation - - Inhaled Oxygen Concentration - - Weight 82.6 kg (182 lb) 01/18/2012 1:42 PM CDT Height - - Body Mass Index - - documented in this encounter Progress Notes * NOHEMI Hall - 01/18/2012 1:45 PM CDT Reason For Visit Reason For Visit: Acute Visit Chief Complaint Chief Complaint: Left top of foot and ankle pain x 2 weeks. 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 He did this 2-3 weeks ago. He also injured this foot in the last 4-6 months. Please refer to MAX notes for details. He has been taking 2-3 Aleve daily off and on over last 2-3 weeks with some relief. Full panel labs due. Patient states he has not been taking cholesterol or diabetes medication as prescribed. States he maybe has been taking the medication 25% of the time. States that diabetes and high cholesterol does not worry him, intimidate him, or concern him. He is aware of potential consequences and from adverse complications from not being compliant with medical advice and medications to control diabetes, high cholesterol, hypertension. Review of Systems Focused-Male: See HPI for pertinent positives. Active Problems 1. Acute Sinusitis 461.9 2. Diabetes Mellitus 250.00 3. Dyslipidemia 272.4 4. Hay Fever 477.9 5. Hypertension 401.9 Past Medical History Patient indicats no significant past medical history. Surgical History Patient indicates no past surgical history. Family History Patient indicates no significant family history of disease. Social History ?? Never A Smoker Current Meds 1. Glimepiride 2 MG Oral Tablet; Take 1 tablet twice daily; Therapy: 16Fpr7631 to (Last Rx:[id number]) Requested for: 98Gxy7963 Ordered; For: Diabetes Mellitus (250.00); Rx By: Hillary Jasso; Dispense: 0 Days ; #:60 Tablet; Refill: 1; Verified Transmission to [facility] 435; Last Updated By: Deepthi Hernandez 2. Lisinopril 10 MG Oral Tablet; Take 1 tablet daily; Therapy: 39Ctt2888 to (Evaluate:28Jan2012) Requested for: 11Ykm4933; Last Rx:[id number] Ordered; For: Hypertension (401.9); Rx By: Hillary Jasso; Dispense: 30 Days ; #:30 Tablet; Refill: 1; Verified Transmission to [facility] 435; Last Updated By: Deepthi Hernandez 3. Montelukast Sodium 10 MG Oral Tablet; TAKE 1 TABLET DAILY; Therapy: 08Ydo5155 to (Evaluate:19Dec2011) Requested for: 04Zrw4388; Last Rx:[id number] Ordered; For: Hay Fever (477.9); Rx By: Subhash Mtz; Dispense: 5 Days ; #:5 Tablet; Refill: 0; Verified Transmission to [facility] 435 Allergies 1. Codeine Sulfate TABS 2. Darvocet-N 100 TABS Vitals Signs [Data Includes: Current Encounter] 18Jan2012 01:42PM Heart Rate: 76 Respiration: 14 Systolic: 116 Diastolic: 64 Weight: 182 lb Physical Exam Constitutional General appearance: No [...] Normal. Assessment 1. Diabetes Mellitus 250.00 2. Ankle Injury 959.7 Plan 1. HGBA1C (Hemoglobin A1c) Requested for: 18Jan2012 2. Urine Microalbumin Profile Requested for: 18Jan2012 3. CMP (Comprehensive Metabolic Profile) Requested for: 18Jan2012 4. Lipid Profile Requested for: 18Jan2012 5. CBC with Diff Requested for: 18Jan2012 Discussion/Summary Discussion Summary: Wear Luis compression sock left ankle/foot-will heal with time Aleve bid prn Labs due-patient will do next week Encouraged chewing tobacco cessation Follow up next week Signatures Electronically signed by : Hillary aJsso NP; Jan 18 2012 2:14PM (Author) BI DEVELOPER documented in this encounter Plan of Treatment Upcoming Encounters Date Type Department Care Team (Late st Contact Info) Description 06/09/2024 4:20 PM SAS BI DEVELOPER Office Visit [facility] Medical Group Family & Internal Medicine [address] [address] León [place] [id number] [place] [address] documented as of this encounter Visit Diagnoses Not on filedocumented in this encounter
--- OUTSIDE RECORDS SUMMARY | 2024-04-27 18:29 | XMS_ITS | Encounter Summary ---
Author Organization [facility] Address [address] [place] [address]. [place] [address] [place] [address] Care Team Providers Care Electric Melt Operator Name Role Phone León Sanchez MD Primary Care Provider +1- [phone] Encounter Details Date Type Department Care Team (Late st Contact Info) Description 01/29/2012 Abstract [facility] [address] [place] [address] Hillary Jasso, APNP [address] [address] Social History Tobacco Use Types [...] Sexual Orientation Straight 03/28/2018 4: 44 PM CASE PREPARER AND LINER documented as of this encounter Plan of Treatment Upcoming Encounters Date Type Department Care Team (Late st Contact Info) Description 06/09/2024 4:20 PM CASE PREPARER AND LINER Office Visit [facility] Medical Group Family & Internal Medicine [facility] [address] [place] [address] [place] [address] [place] [address] documented as of this encounter Visit Diagnoses Diagnosis Routine general medical examination at a health care facility documented in this encounter Care Teams Electric Melt Operator Relationship Specialty Start Date [place] Date [place] [address] [place] [address] PCP - General FAMILY PRACTICE 02/27/18 documented as of this encounter
--- OUTSIDE RECORDS SUMMARY | 2024-04-27 18:29 | XMS_ITS | Encounter Summary ---
Author Organization [facility] Address [address] [place] [address]. [place] [address] [place] [address] Care Team Providers Care Chopper Gun Operator Name Role Phone León Sanchez MD Primary Care Provider +1- [phone] Encounter Details Date Type Department Care Team (Late Contact Info) Description 09/19/2010 Abstract [facility] [address] [place] [address] Hillary Jasso, APNP [address] [address] Social History Tobacco Use Types [...] Sexual Orientation Straight 03/28/2018 4: 44 PM ARCHITECT IN TRAINING documented as of this encounter Plan of Treatment Upcoming Encounters Date Type Department Care Team (Late st Contact Info) Description 06/09/2024 4:20 PM ARCHITECT IN TRAINING Office Visit [facility] Medical Group Family & Internal Medicine [facility] [address] [place] [address] [place] [address] [place] [address] documented as of this encounter Visit Diagnoses Diagnosis Other testicular hypofunction documented in this encounter Care Teams Chopper Gun Operator Relationship Specialty Start [place] [address] [place] [address] PCP - General FAMILY PRACTICE 02/27/18 documented as of this encounter
--- OUTSIDE RECORDS SUMMARY | 2024-04-27 18:29 | XMS_ITS | Encounter Summary ---
Author Organization [facility] Address [address] [place] [address]. [place] [address] [place] [address] Care Team Providers Care Freight Clerk Name Role Phone León Sanchez MD Primary Care Provider +1- [phone] Encounter Details Date Type Department Care Team (Late Contact Info) Description 08/18/2009 Abstract [facility] CONVERSION [address] [place] [address] Hillary Jasso, APNP [address] [place] [address] [address] Social History Tobacco Use Types [...] Sexual Orientation Straight 03/28/2018 4: 44 PM FLOOR WORKER TRANSFER BAY documented as of this encounter Plan of Treatment Upcoming Encounters Date Type Department Care Team (Late Contact Info) Description 06/09/2024 4:20 PM FLOOR WORKER TRANSFER BAY Office Visit [facility] Medical Group Family & Internal Medicine - [place] [address] [place] [address] [place] [address] [place] [address] documented as of this encounter Visit Diagnoses Not on filedocumented in this encounter Care Teams Freight Clerk Relationship Specialty Start [place] [address] [place] [address] PCP - General FAMILY PRACTICE 02/27/18 documented as of this encounter
--- OUTSIDE RECORDS SUMMARY | 2024-04-27 18:29 | XMS_ITS | Encounter Summary ---
Author Organization [facility] Address [address] [place] [address]. [place] [address] [place] [address] Care Team Providers Care Director Of Business Development Name Role Phone León Sanchez MD Primary Care Provider +1- [phone] Encounter Details Date Type Department Care Team (Late Contact Info) Description 02/16/2011 Abstract [facility] [address] [place] [address] Hillary Jasso, APNP [address] [address] Social History Tobacco Use Types [...] Orientation Straight 03/28/2018 4: 44 PM DROP HAMMER MECHANIC documented as of this encounter Plan of Treatment Upcoming Encounters Date Type Department Care Team (Late st Contact Info) Description 06/09/2024 4:20 PM DROP HAMMER MECHANIC Office Visit [facility] Medical Group Family & Internal Medicine [facility] [address] [place] [address] [place] [address] [place] [address] documented as of this encounter Visit Diagnoses Diagnosis Other and unspecified hyperlipidemia documented in this encounter Care Teams Director Of Business Development Relationship Specialty Start [place] [address] [place] [address] PCP - General FAMILY PRACTICE 02/27/18 documented as of this encounter
--- OUTSIDE RECORDS SUMMARY | 2024-04-27 18:29 | XMS_ITS | Encounter Summary ---
Author Organization [facility] Address [address] [place] [address]. [place] [address] [place] [address] Care Team Providers Care Security Test Engineer Name Role Phone León Sanchez MD Primary Care Provider +1- [phone] Encounter Details Date Type Department Care Team (Late Contact Info) Description 11/19/2009 Abstract [facility] CONVERSION [address] [place] [address] Hillary Jasso, APNP [address] [place] [address] [address] Social History Tobacco Use Types [...] Sexual Orientation Straight 03/28/2018 4: 44 PM CLARIFIER documented as of this encounter Plan of Treatment Upcoming Encounters Date Type Department Care Team (Late Contact Info) Description 06/09/2024 4:20 PM CLARIFIER Office Visit [facility] Medical Group Family & Internal Medicine - [place] [address] [place] [address] [place] [address] [place] [address] documented as of this encounter Visit Diagnoses Not on filedocumented in this encounter Care Teams Security Test Engineer Relationship Specialty Start [place] [address] [facility] [address] PCP - General FAMILY PRACTICE 02/27/18 documented as of this encounter
--- OUTSIDE RECORDS SUMMARY | 2024-04-27 18:29 | XMS_ITS | Encounter Summary ---
Author Organization [facility] Address [facility] [place] [address] [place] [address] Care Team Providers Care Crop Or Livestock Tenant Farmer Name Role Phone Unavailable Primary Care Provider Unavailabl e Encounter Details Date Type Department Care Team (Latest Contact Info) Description 11/29/2011 Abstract [facility] Medical Group Social History Tobacco Use Types Packs/Day Years Used Date Smoking Tobacco: Never Assessed Sex and Gender Information Value Date Recorded Sex Assigned at Not on file Legal Sex Male 6:22 PM CDT Gender Identity Not on file Sexual Orientation Straight 03/28/2018 4: 44 PM HABILITATION ASSISTANT documented as of this encounter Progress Notes * NOHEMI Hall - 11/29/2011 4:44 PM CDT Message Message Free Text Note Form: patient called requesting a refill on his lisinopril and glimperide, escribed one month with 1 refill to [facility] in [place]. MAX -12, saw Dr. Brock 612. Plan 1. Glimepiride 2 MG Oral Tablet; Take 1 tablet twice daily; Therapy: 67Nrn5725 to (Last Rx:[id number]) 2. Lisinopril 10 MG Oral Tablet; Take 1 tablet daily; Therapy: 16Egl4629 to (Evaluate:71Xzu4365); Last Rx:[id number] LITATION ASSISTANT documented in this encounter Plan of Treatment Upcoming Encounters Date Type Department Care Team (Late st Contact Info) Description 06/09/2024 4:20 PM HABILITATION ASSISTANT Office Visit [facility] Medical Group Family & Internal Medicine - [place] [address] [place] [address] [place] [address] [place] [address] documented as of this encounter Visit Diagnoses Not on filedocumented in this encounter
--- OUTSIDE RECORDS SUMMARY | 2024-04-27 18:29 | XMS_ITS | Encounter Summary ---
Author Organization [facility] Address [address] [place] [address]. [place] [address] [place] [address] Care Team Providers Care Boot Maker Name Role Phone León Sanchez MD Primary Care Provider +1 [phone] Encounter Details Date Type Department Care Team (Late Contact Info) Description 01/31/2010 Abstract [facility] [address] [place] [address] Hillary Jasso, APNP [address] [address] Social History Tobacco Use Types [...] Sexual Orientation Straight 03/28/2018 4: 44 PM BAKERY PRODUCTS CHECKER documented as of this encounter Plan of Treatment Upcoming Encounters Date Type Department Care Team (Late st Contact Info) Description 06/09/2024 4:20 PM BAKERY PRODUCTS CHECKER Office Visit [facility] Medical Group Family & Internal Medicine [facility] [address] [place] [address] [place] [address] [place] [address] documented as of this encounter Visit Diagnoses Diagnosis Type 2 or unspecified type diabetes mellitus ([facility]) documented in this encounter Care Teams Boot Maker Relationship Specialty Start [place] [address] [place] [address] PCP - General FAMILY PRACTICE 02/27/18 documented as of this encounter
--- OUTSIDE RECORDS SUMMARY | 2024-04-27 18:29 | XMS_ITS | Encounter Summary ---
Author Organization [facility] Address [address] [place] [address]. [place] [address] [place] [address] Care Team Providers Care Senior Construction Estimator Name Role Phone León Sanchez MD Primary Care Provider +1- [phone] Encounter Details Date Type Department Care Team (Late Contact Info) Description 08/18/2010 Abstract [facility] Infusion Services [address] [place] [address] Hillary Jasso, APNP [address] [address] Social History Tobacco Use Types [...] Sexual Orientation Straight 03/28/2018 4: 44 PM SPINNING ROOM WORKER documented as of this encounter Plan of Treatment Upcoming Encounters Date Type Department Care Team (Late st Contact Info) Description 06/09/2024 4:20 PM SPINNING ROOM WORKER Office Visit [facility] Medical Group Family & Internal Medicine [facility] [address] [place] [address] [place] [address] [place] [address] documented as of this encounter Visit Diagnoses Diagnosis Other testicular hypofunction documented in this encounter Care Teams Senior Construction Estimator Relationship Specialty Start [place] [address] [place] [address] PCP - General FAMILY PRACTICE 02/27/18 documented as of this encounter
--- OUTSIDE RECORDS SUMMARY | 2024-04-27 18:29 | XMS_ITS | Encounter Summary ---
Author Organization [facility] Address [facility] [place] [address] [place] [address] Care Team Providers Care Fence Installer Foreman Name Role Phone Unavailable Primary Care Provider Unavailabl e Encounter Details Date Type Department Care Team (Latest Contact Info) Description 01/31/2012 Abstract [facility] Medical Group Social History Tobacco Use Types Packs/Day Years Used Date Smoking Tobacco: Never Assessed Sex and Gender Information Value Date Recorded Sex Assigned at Not on file Legal Sex Male 6:22 PM CDT Gender Identity Not on file Sexual Orientation Straight 03/28/2018 4: 44 PM ASSISTANT WOMEN'S ROWING COACH documented as of this encounter Progress Notes * NOHEMI Hall - 01/31/2012 8:52 AM CDT Message Recorded as Task Date: 01/31/2012 08:40 AM, Created By: Hillary Jasso Task Name: Follow Up Assigned To: Lisa Chowdhury Regarding Patient: Sonny Singleton, Status: Active Comment: Hillary Jasso - 31 Jan 2012 8:40 AM TASK CREATED Please have pt make an appt. to come in and go over lab work Thanks Lisa Chowdhury - 31 Jan 2012 8:52 AM TASK EDITED Pt inormed. appt made Active Problems 1. Acute Sinusitis 461.9 2. Ankle Injury 959.7 3. Diabetes Mellitus 250.00 4. Dyslipidemia 272.4 5. Hay Fever 477.9 6. Hypertension 401.9 Current Meds 1. Glimepiride 2 MG Oral Tablet; Take 1 tablet twice daily; Therapy: 08Huo4800 to (Last Rx:[id number]) Requested for: [id number] 2. Lisinopril 10 MG Oral Tablet; TAKE 1 TABLET DAILY; Therapy: 15Pdy8347 to (Evaluate:28Apr2012) Requested for: 29Jan2012; Last Rx:29Jan2012 3. MetFORMIN HCl 500 MG Oral Tablet; TAKE 2 TABLETS TWICE DAILY; Therapy: 29Jan2012 to (Evaluate:28Apr2012) Requested for: 29Jan2012; Last Rx:29Jan2012 4. Montelukast Sodium 10 MG Oral Tablet; TAKE 1 TABLET DAILY; Therapy: 66Ykg6734 to (Evaluate:19Dec2011) Requested for: 19Ibf2805; Last Rx:[id number] Allergies 1. Codeine Sulfate TABS 2. Darvocet-N 100 TABS STANT WOMEN'S ROWING COACH documented in this encounter Plan of Treatment Upcoming Encounters Date Type Department Care Team (Late st Contact Info) Description 06/09/2024 4:20 PM ASSISTANT WOMEN'S ROWING COACH Office Visit [facility] Medical Group Family & Internal Medicine [facility] [address] [place] [address] León Sanchez [place] [address] [place] [address] documented as of this encounter Visit Diagnoses Not on filedocumented in this encounter
--- OUTSIDE RECORDS SUMMARY | 2024-04-27 18:29 | XMS_ITS | Encounter Summary ---
Author Organization [facility] Address [address] [place] [address]. [place] [address] [place] [address] Care Team Providers Care Cash Manager Name Role Phone León Sanchez MD Primary Care Provider +1- [phone] Encounter Details Date Type Department Care Team (Late Contact Info) Description 07/19/2010 Abstract [facility] Infusion Services [address] [place] [address] Hillary Jasso, APNP [address] [address] Social History Tobacco Use Types [...] Orientation Straight 03/28/2018 4: 44 PM ORDER TRACER documented as of this encounter Plan of Treatment Upcoming Encounters Date Type Department Care Team (Late st Contact Info) Description 06/09/2024 4:20 PM ORDER TRACER Office Visit [facility] Medical Group Family & Internal Medicine [facility] [address] [place] [address] [place] [address] [place] [address] documented as of this encounter Visit Diagnoses Diagnosis Other testicular hypofunction documented in this encounter Care Teams Cash Manager Relationship Specialty Start [place] [address] [place] [address] PCP - General FAMILY PRACTICE 02/27/18 documented as of this encounter
--- OUTSIDE RECORDS SUMMARY | 2024-04-27 18:29 | XMS_ITS | Encounter Summary ---
Author Organization [facility] Address [address] [place] [address]. [place] [address] [place] [address] Care Team Providers Care Tone Cabinet Assembler Name Role Phone León Sanchez MD Primary Care Provider +1- [phone] Encounter Details Date Type Department Care Team (Late Contact Info) Description 06/16/2010 Abstract [facility] Infusion Services [address] [place] [address] Hillary Jasso, APNP [address] [address] Social History Tobacco Use Types [...] Sexual Orientation Straight 03/28/2018 4: 44 PM COLLOID MILL OPERATOR documented as of this encounter Plan of Treatment Upcoming Encounters Date Type Department Care Team (Late st Contact Info) Description 06/09/2024 4:20 PM COLLOID MILL OPERATOR Office Visit [facility] Medical Group Family & Internal Medicine [facility] [address] [place] [address] [place] [address] [place] [address] documented as of this encounter Visit Diagnoses Diagnosis Other testicular hypofunction documented in this encounter Care Teams Tone Cabinet Assembler Relationship Specialty Start [place] [address] [place] [address] PCP - General FAMILY PRACTICE 02/27/18 documented as of this encounter
--- OUTSIDE RECORDS SUMMARY | 2024-04-27 18:29 | XMS_ITS | Encounter Summary ---
Author Organization [facility] Address [address] [place] [address]. [place] [address] [place] [address] Care Team Providers Care Human Resources Professional Name Role Phone León Sanchez MD Primary Care Provider +1- [phone] Encounter Details Date Type Department Care Team (Late Contact Info) Description 07/03/2009 Abstract [facility] CONVERSION [address] [place] [address] Hillary Jasso, APNP [address] [place] [address] [address] Social History Tobacco Use Types [...] Sexual Orientation Straight 03/28/2018 4: 44 PM PSYCHIATRIC ARNP documented as of this encounter Plan of Treatment Upcoming Encounters Date Type Department Care Team (Late Contact Info) Description 06/09/2024 4:20 PM PSYCHIATRIC ARNP Office Visit [facility] Medical Group Family & Internal Medicine - [place] [address] [place] [address] [place] [address] [place] [address] documented as of this encounter Visit Diagnoses Not on filedocumented in this encounter Care Teams Human Resources Professional Relationship Specialty Start [place] [address] [facility] [place] [address] PCP - General FAMILY PRACTICE 02/27/18 documented as of this encounter
--- OUTSIDE RECORDS SUMMARY | 2024-04-27 18:29 | XMS_ITS | Encounter Summary ---
Author Organization [facility] Address [address] [place] [address]. [place] [address] [place] [address] Care Team Providers Care Brake Rider Name Role Phone León Sanchez MD Primary Care Provider +1- [phone] Encounter Details Date Type Department Care Team (Late Contact Info) Description 10/12/[address] [facility] [address] [place] [address] Hillary Jasso, APNP [address] [address] Social History Tobacco Use Types [...] Orientation Straight 03/28/2018 4: 44 PM SUPERVISOR CEREAL documented as of this encounter Plan of Treatment Upcoming Encounters Date Type Department Care Team (Late st Contact Info) Description 06/09/2024 4:20 PM SUPERVISOR CEREAL Office Visit [facility] Medical Group Family & Internal Medicine [facility] [address] [place] [address] [place] [address] [place] [address] documented as of this encounter Visit Diagnoses Diagnosis Pain in soft tissues of limb Pain in limb documented in this encounter Care Teams Brake Rider Relationship Specialty Start [place] [address] [place] [address] PCP - General FAMILY PRACTICE 02/27/18 documented as of this encounter
--- OUTSIDE RECORDS SUMMARY | 2024-04-27 18:29 | XMS_ITS | Encounter Summary ---
Author Organization [facility] Address [address] [place] [address]. [place] [address] [place] [address] Care Team Providers Care Wedding Consultant Name Role Phone León Sanchez MD Primary Care Provider [phone]- [phone] Encounter Details Date Type Department Care Team (Late Contact Info) Description 09/23/2010 Abstract [facility] [address] [place] [address] Hillary Jasso, APNP [address] [address] Social History Tobacco Use Types [...] Sexual Orientation Straight 03/28/2018 4: 44 PM STATION REPAIRER documented as of this encounter Plan of Treatment Upcoming Encounters Date Type Department Care Team (Late st Contact Info) Description 06/09/2024 4:20 PM STATION REPAIRER Office Visit [facility] Family & Internal Medicine [facility] [address] [place] [address] [place] [address] [place] [address] documented as of this encounter Visit Diagnoses Diagnosis Other testicular hypofunction documented in this encounter Care Teams Wedding Consultant Relationship Specialty [place] [address] [place] [address] PCP - General FAMILY PRACTICE 02/27/18 documented as of this encounter
--- OUTSIDE RECORDS SUMMARY | 2024-04-27 18:29 | XMS_ITS | Encounter Summary ---
Author Organization [facility] Address [address] [place] [address]. [place] [address] [place] [address] Care Team Providers Care Hadoop Software Engineer Name Role Phone León Sanchez MD Primary Care Provider [phone] Encounter Details Date Type Department Care Team (Late Contact Info) Description 08/05/2010 Abstract [facility] [address] [place] [address] Hillary Jasso, APNP [address] [address] Social History Tobacco Use Types [...] Straight 03/28/2018 4: 44 PM SALES REPRESENTATIVE SUPERVISOR documented as of this encounter Plan of Treatment Upcoming Encounters Date Type Department Care Team (Late st Contact Info) Description 06/09/2024 4:20 PM SALES REPRESENTATIVE SUPERVISOR Office Visit [facility] Family & Internal Medicine [facility] [address] [place] [address] [place] [address] [place] [address] documented as of this encounter Visit Diagnoses Diagnosis Type 2 or unspecified type diabetes mellitus ([facility]/HCC [facility]/HCC) documented in this encounter Care Teams Hadoop Software Engineer Relationship Specialty Start [place] [address] [place] [address] PCP - General FAMILY PRACTICE 02/27/18 documented as of this encounter
== END 2024-04-21 15:10 | disposition short-term general hospital (02) ==
PROVIDERS: Emergency Provider Student in an Organized Health Care Education/Training Program; PCP Family Medicine
DX: R29.810 Facial weakness (principal); R27.0 Ataxia, unspecified; H54.7 Unspecified visual loss; D72.829 Elevated white blood cell count, unspecified; E11.65 Type 2 diabetes mellitus with hyperglycemia; Z79.84 Long term (current) use of oral hypoglycemic drugs; Z79.82 Long term (current) use of aspirin; Z79.899 Other long term (current) drug therapy; K76.0 Fatty (change of) liver, not elsewhere classified; R93.421 Abnormal radiologic findings on diagnostic imaging of right kidney; R93.2 Abnormal findings on diagnostic imaging of liver and biliary tract; K59.00 Constipation, unspecified; R93.0 Abnormal findings on diagnostic imaging of skull and head, not elsewhere classified; I65.02 Occlusion and stenosis of left vertebral artery; I65.23 Occlusion and stenosis of bilateral carotid arteries; R00.0 Tachycardia, unspecified
CPT/HCPCS: 36415; 70450; 70496; 70498; 71045; 71275; 74174; 80053; 80307; 81001; 82077; 82948; 83036; 84484; 85025; 85610; 85730; 93005; 96361; 96374; 96375; 99285; J0780; J1815; J3101; J7030; Q9967